=== PATIENT | male | born 1960 | race Caucasian/White ===

== ENCOUNTER 2019-01-09 11:34 | Outpatient (CLI) | payer OTHER, SELFPAY ==
--- NOTE | 2019-01-09 15:38 | DI.RAD_ITS ---
SYMPTOMS/DIAGNOSIS: RIGHT HIP PAIN RELATED TO LIFTING, INGUINAL PAIN, R10.30 RIGHT HIP AND PELVIS: Two views were obtained. There are degenerative changes of the lower lumbar spine and SI joints. There is moderate narrowing of the cartilaginous joint spaces of both hips superiorly. Mild acetabular and femoral head spurring noted. CONCLUSION: DJD, both hips. No evidence of acute process.
== END 2019-01-09 11:54 ==
PROVIDERS: Visit Provider Nurse Practitioner Family
DX: R10.31 Right lower quadrant pain (principal); M25.551 Pain in right hip; M16.11 Unilateral primary osteoarthritis, right hip
CPT/HCPCS: 73502

== ENCOUNTER 2019-03-10 01:04 | Outpatient (CLI) | payer OTHER, SELFPAY ==
--- NOTE | 2019-03-10 09:52 | DI.MRI_ITS ---
EXAM: MR LOWER JOINT BI WO CLINICAL HISTORY: b/l hip pain, M25.559. TECHNIQUE: Multiplanar multisequence MRI was performed. COMPARISON: XR hip RT complete AP pelvis from 01/09/2019 FINDINGS: There is no intrapelvic adenopathy or mass. There is a right hip joint effusion. No other significa nt soft tissue signal abnormality identified involving the hips. There is geographic mixed signal no oswaldo the superior aspect of both femoral heads with an appearance raising the possibility of avascular necrosis. Abnormal signal noted in the acetabular roofs bilaterally consistent with degenerative ch declan. Narrowing of the articular cartilage noted as seen on plain films. Mild hypertrophic spurring noted. Mild deformity of femoral heads noted superiorly consistent with slight collapse secondary t o presumed avascular necrosis. 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 Contour deformity of the femoral heads is noted as was seen plain films obtain ed recently.
== END 2019-03-10 01:24 ==
PROVIDERS: PCP Family Medicine; Visit Provider Physician Assistant
DX: M25.551 Pain in right hip (principal); M25.552 Pain in left hip; M25.451 Effusion, right hip; M16.11 Unilateral primary osteoarthritis, right hip; M87.851 Other osteonecrosis, right femur; M87.852 Other osteonecrosis, left femur
CPT/HCPCS: 73721

== ENCOUNTER 2019-04-25 10:03 | Outpatient (CLI) | payer OTHER, SELFPAY ==
--- NOTE | 2019-04-25 09:26 | DI.RAD_ITS ---
EXAM: XR PELVIS AP INDICATION: surgical planning. COMPARISON: XR hip RT complete and AP pelvis from 01/09/2019 TECHNIQUE: 2D digital imaging was performed. FINDINGS: Superior aspects of both femoral heads show sclerosis and cystic changes. There does appear to be mi ld loss of volume of the superior aspect of the left femoral head. The findings are most suggestive of avascular necrosis. There is also mild joint space narrowing early. The soft tissues are unremar kable. IMPRESSION: Findings most suggestive of avascular necrosis of the femoral heads bilaterally.
== END 2019-04-25 10:23 ==
PROVIDERS: PCP Family Medicine; Visit Provider Physician Assistant
DX: M87.051 Idiopathic aseptic necrosis of right femur (principal); M87.052 Idiopathic aseptic necrosis of left femur
CPT/HCPCS: 72170

== ENCOUNTER 2019-04-25 10:10 | Outpatient (CLI) | payer OTHER, SELFPAY ==
[2019-04-25 11:39] LABS: HCT 40.6 % (40.0-50.0); Mean Corp. HGB Concentration 34.5 g/dL (32.0-36.0); Mean Corpuscular Hemoglobin 31.3 pg (27.0-33.0); Mean Corpuscular Volume 90.6 fL (80-95); Mean Platelet Volume 8.3 fL (8.0-11.0); Platelet Count 351 x1000/uL (130-400); RBC 4.48 m/cumm (4.50-6.00); RBC Distribution Width 12.6 % (11.8-14.1); White Blood Cell Count 6.34 k/cumm (4.4-10.8)
[2019-04-25 12:49] LABS: Anion Gap 7.8 mmol/L (3-11); BUN 11 mg/dL (7-18); CO2 28.2 mmol/L (21.0-32.0); CREATININE 0.95 mg/dL (0.70-1.30); Calcium 9.1 mg/dL (8.5-10.1); Chloride 98 mmol/L (98-107); Glucose 120 mg/dL (74-106); Potassium 4.1 mmol/L (3.5-5.1); Sodium 134 mmol/L (136-145)
--- NOTE | 2019-04-27 20:20 | W.PREOPHP ---
Date of service: 04/25/19 Assessment and Plan Assessment and plan (1) Avascular necrosis of left femoral head: Status: Acute (2) Avascular necrosis of right femoral head: Status: Acute Assessment and plan: Bilateral total hip replacements. Details of surgery were discussed with patient as well as risks and pertinent anatomy. All questions were answered. History of Present Illness History of Present Illness Chief Complaint: Bilateral hip pain Narrative: Bruno is a 59-year-old male who comes in today complaining of bilateral hip pain, here for a history and physical for bilateral total hip replacements. While at work, he aggravated both hips on separate occasions, causing severe groin pain. Now his hips bother him anytime he is weightbearing, but especially if he is squatting or trying to lift anything of any weight. It also bothers him with walking upstairs, as well as doing simple tasks like putting on his shoes and socks. Imaging done in the office including x-rays and MRIs reveal avascular necrosis of both femoral heads that were exacerbated well doing rigorous activities at work. After discussing treatment options, Dr. Munguia does offer bilateral total hip replacements, and Bruno agrees with this plan and is anxious to proceed. Pertinent Surgical Information Patient denies history of CVA (has had TIA in 2016 with no residual effects or return of symptoms), SD, angina, COPD, renal or liver disorders, hepatitis, bleeding disorders, diabetes, immune or thyroid disorders. No complications from anesthesia. Has had recent rotator cuff repair done here at [facility] without complication. Review of Systems Constitutional Constitutional: Denies fever(s) ENT Ears, Nose, Mouth, and Throat: Denies dizziness and Denies sore throat Cardiovascular Cardiovascular: Denies chest pain, Denies palpitations and Denies dyspnea Respiratory Respiratory: Denies cough and Denies dyspnea Gastrointestinal Gastrointestinal: Denies abdominal pain, Denies melena, Denies hematochezia, Denies diarrhea, Denies nausea and Denies vomiting Genitourinary Genitourinary: Denies hematuria and Denies dysuria Neurologic Neurologic: Denies dizziness Endocrine Endocrine: Denies palpitations [facility] Medical History (Updated 04/27/19 @ 20:22 by MAU Garcia) Asthma (Chronic) Chronic GERD (Chronic) Gout (Chronic) Hypertension (Chronic) TIA (transient ischemic attack) (Acute ~07/2015) Surgical History (Updated 04/25/19 @ 10:31 by Shanna Ferguson RN) H/O melanoma excision (Acute) rt torso H/O spinal fusion (Resolved) L4-S1 [facility] 1990 History of arthroscopy of right shoulder (Resolved) with distal clavicle excision and biceps tenodesis, 2017 History of colonoscopy (Chronic) History of right inguinal hernia repair (Resolved) 1983 History of tonsillectomy (Chronic) S/P left rotator cuff repair (Resolved) 1991 Family History (Updated 04/25/19 @ 10:33 by Shanna Ferguson RN) Maternal Uncle Heart disease Social History Smoking/Tobacco Use Status: Never Alcohol Intake: current Alcohol Intake frequency: 0-2 drinks per day Drug use: Never Household members: spouse Housing: house Meds Home Medications and Allergies Home Medications Medication Instructions Recorded Confirmed Type folic acid 20 mg PO DAILY 10/13/15 04/25/19 History irbesartan [Avapro] 300 mg PO DAILY tab-cap 10/13/15 04/25/19 History omeprazole 20 mg PO DAILY tab-cap 10/13/15 04/25/19 History vitamin O15-vhlkh acid 1 ea SUBLINGUAL DAILY 10/13/15 04/25/19 History allopurinol 300 mg PO PRN PRN 03/14/16 04/25/19 History aspirin [Aspir-81] 81 mg PO DAILY 03/14/16 04/25/19 History Combivent 2 puff INHALATION PRN PRN 01/10/17 04/25/19 History Flovent HFA 1 - 2 puff INHALATION PRN PRN 01/10/17 04/25/19 History metoprolol tartrate 25 mg PO DAILY 01/16/17 04/25/19 History naproxen 500 mg PO BID PRN 04/25/19 04/25/19 History Allergies Allergy/AdvReac Type Severity Reaction Status Date / Time chlorhexidine gluconate Allergy Intermediate Rash & Unverified 04/25/19 10:26 [From Hibiclens] Burning oxycodone HCl [From Percocet] AdvReac Severe hallucinate Unverified 04/25/19 10:26 s Exam HENMT Head: normocephalic and atraumatic General nose exam: no nasal discharge Throat: uvula midline and no uvular edema Other: soft palate rises symmetrically, no erythema Eyes Conjunctivae: conjunctivae normal Sclera: sclerae normal Pupils: PERRL Resp Effort & Inspection: normal respiratory effort Auscultation: clear to auscultation bilaterally and no wheezes Cardio Rate: regular rate Rhythm: regular rhythm Heart Sounds: S1 normal, S2 normal and no murmurs GI Palpation: soft, no hepatosplenomegaly and nontender Auscultation: normal bowel sounds Results Labs Result diagrams: 04/25/19 11:15 04/25/19 11:15
== END 2019-04-25 10:30 ==
PROVIDERS: PCP Family Medicine; Visit Provider Student in an Organized Health Care Education/Training Program
DX: M87.052 Idiopathic aseptic necrosis of left femur (principal); M87.051 Idiopathic aseptic necrosis of right femur; Z01.818 Encounter for other preprocedural examination; Z01.812 Encounter for preprocedural laboratory examination
CPT/HCPCS: 36415; 80048; 85027; 86850; 86900; 86901; NC

== ENCOUNTER 2019-05-07 06:52 | Inpatient (IN) | payer OTHER, SELFPAY ==
--- NOTE | 2019-04-25 18:03 | PDOC.CMPRO ---
- If Service Date Differs Date of service: 04/25/19 Time of Service: 18:03 Care Management Progress Note CM met with Grayson during his pre op appointment. He is scheduled on 05/07/2019 for a bilateral hip replacement to be performed by Dr. Munguia. Grayson was injured at work while unloading a toilet, in order to replace an old toilet at [employer], where he is employed. He stated that [employer] has been cooperative and are covering the medical bills through workers comp. Grayson lives with his , Valorie, who works at [employer]. They live in a ranch style home in [place], with 4-5 steps to get in to the house. He is independent at baseline, and his has taken off work in order to help care for him at home post surgery. His will transport him via private vehicle to and from [facility]. He is interested in completing an advanced directive, and CM offered to give him a blank copy upon his admission. KAROL also advised that his primary care office (his PCP is Dr. Romero) will have blank copies if he would like one at a different date. He is already signed up for the portal.
[2019-05-07] VITALS (19 sets, daily range): BP systolic 91–154; BP diastolic 55–114; PULSE 38–85; RESP 15–58; TEMP 35.8–37.2; O2SAT 16–100
[2019-05-07] MEDS: Lactated Ringers 1,000 ML 80 ML IV ×3 (06:28→20:54)
[2019-05-07] MEDS: Celecoxib 200 MG CAP 400 MG PO (06:28)
[2019-05-07] MEDS: Acetaminophen 500 MG TAB 1000 MG PO ×3 (06:29→19:30)
[2019-05-07] MEDS: ceFAZolin 2 GM/50 ML BAG IVPB (07:31)
--- NOTE | 2019-05-07 08:46 | DI.RAD_ITS ---
EXAM: XR HIP LT IN OR CLINICAL HISTORY: AVASCULAR NECROSIS FEMORAL HEAD. TECHNIQUE: 2D and realtime digital imaging was performed. COMPARISON: No exams were available for comparison FINDINGS: Fluoroscopy was provided in the OR for Dr. Munguia. Hard copy images show placement of a left hip prosthesis. The components appear well aligned. FLUORO TIME: 42.1 seconds
[2019-05-07] MEDS: Bupivacaine 0.25% Pres-Free 30 ML VIAL (09:51)
[2019-05-07] MEDS: Ketorolac 30 MG/ML VIAL (09:53)
[2019-05-07] MEDS: Normal Saline 20 ML VIAL (09:54)
--- NOTE | 2019-05-07 11:12 | DI.RAD_ITS ---
EXAM: XR HIP RT IN OR CLINICAL HISTORY: AVASCULAR NECROSIS FEMORAL HEAD. TECHNIQUE: 2D and realtime digital imaging was performed. COMPARISON: No exams were available for comparison FINDINGS: Fluoroscopy was provided in the OR for Dr. Munguia. Hard copy images show placement of a right hip prosthesis. The components appear well aligned. FLUORO TIME: 28.4 seconds
--- NOTE | 2019-05-07 11:34 | DI.RAD_ITS ---
EXAM: XR PELVIS AP INDICATION: s/p bilateral ATIF. COMPARISON: XR PELVIS AP from 04/25/2019 TECHNIQUE: 2D digital imaging was performed. FINDINGS: A single portable AP view was performed. The patient is status post bilateral hip prostheses. The c omponents appear well aligned.
--- NOTE | 2019-05-07 12:43 | NUR.NOTE ---
Nursing Note: Patient admitted from PACU to Med/Surg room 226 via his bed at 1156
--- NOTE | 2019-05-07 15:26 | IN_ITS ---
Date of service: 05/07/19 Time of Service: 14:45 PT Notes Visit Reasons: B Anterior ATIF Physical Therapy Inpatient Initial Evaluation Date: 05/07/2019 Referring Doctor: Hood Munguia MD PT Orders: PT CONSULT: Status post Ortho surgery. Status post bilateral anterior ATIF. Precautions: Fall. Standard. WBAT on B LE. Patient Profile/Admitting Diagnosis: Patient is a 59-year-old male who is status post bilateral anterior total hip arthroplasties due to bilateral avascular necrosis of hips on POD 0. PMHX: Medical History (Updated 04/27/19 @ 20:22 by MAU Garcia) Asthma (Chronic) Chronic GERD (Chronic) Gout (Chronic) Hypertension (Chronic) TIA (transient ischemic attack) (Acute ~07/2015) Surgical History (Updated 04/25/19 @ 10:31 by Shanna Ferguson RN) H/O melanoma excision (Acute), right torso H/O spinal fusion (Resolved), L4-S1 [facility] [place], 1990 History of arthroscopy of right shoulder (Resolved) with distal clavicle excision and biceps tenodesis, 2016 History of colonoscopy (Chronic) History of right inguinal hernia repair (Resolved), 1983 History of tonsillectomy (Chronic) S/P left rotator cuff repair (Resolved), 1991 Social History/Home Situation: Patient lives with in a 1 floor house with 4 steps to enter and rails on both sides. 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 He is independent with all aspects of ADL performance prior to surgery. Equipment Owned/DME: None Subjective: Patient is agreeable to a PT consult. He reports significant return of sensation to bilateral lower extremities with bilateral soles and buttocks still numb. He complained about his upper extremities being weird while performing ambulation activity that prompted him to stop and sit down. He also reported pain on bilateral inguinal areas with the right more than the left. Denied headache, chest pain, and dizziness throughout PT consult. Objective: General Observation: Patient seen resting in bed. IV in the right UE. Bilateral TEDS on the legs. Mental Status: Alert and oriented x4 Pain: 4-5/10 on inguinal areas Vital Signs: 129/83 mmHg after taking 6 steps using a front wheeled walker ROM: Right Upper Extremity: Shoulder Flexion WFL. Shoulder abduction WFL. Elbow flexion WFL. Wrist flexion WFL. Opening and closing of hand WFL. Left Upper Extremity: Shoulder Flexion WFL. Shoulder abduction WFL. Elbow flexion WFL. Wrist flexion WFL. Opening and closing of hand WFL. Right Lower Extremity: Hip flexion WFL. Hip abduction WFL. Knee flexion WFL. Ankle dorsiflexion WFL. Ankle plantarflexion WFL. Left Lower Extremity: Hip flexion WFL. Hip abduction WFL. Knee flexion WFL. Ankle dorsiflexion WFL. Ankle plantarflexion WFL. Strength: Right Upper Extremity: Shoulder flexors 5/5. Shoulder abductors 5/5. Elbow flexors 5/5. Elbow extensors 5/5. Business Systems Administrator strong. Left Upper Extremity: Shoulder flexors 5/5. Shoulder abductors 5/5. Elbow flexors 5/5. Elbow extensors 5/5. Business Systems Administrator strong. Right Lower Extremity: Hip flexors 4-/5. Hip abductors 4-/5. Knee flexors 4/5. Knee extensors 4/5. Ankle dorsiflexors 5/5. Ankle plantarflexors 5/5. Left Lower Extremity:Hip flexors 4-/5. Hip abductors 4-/5. Knee flexors 4/5. Knee extensors 4/5. Ankle dorsiflexors 5/5. Ankle plantarflexors 5/5. Sensation: Diminished on posterior thigh and plantar areas. Bed Mobility/Transfers: Rolling minimal assist Supine to sit minimal assist Sit to supine minimal assist Sit to stand minimal assist Stand to sit minimal assist Bed to chair minimal assist Chair to bed minimal assist Gait: Patient was able to negotiate 6 feet using a front wheeled walker with step-to gait pattern requiring minimal assist of PT as well as IV pole management and wheelchair follow of an CHEMICAL WEIGHER. Remaining bilateral plantar numbness as well as having had double with spinal anesthesia caused patient to complain about numbness on bilateral upper extremities that made him sit back down on the chair. Patient was assisted from wheelchair onto a recliner using front wheeled walker with minimal assist. Decreased dhaval. Decreased step height and length. No LOB observed. Balance: Static Sitting: Normal Dynamic Sitting: Normal Static Standing: Fair Dynamic Standing: Fair Special Tests: Mobility Limitations Standardized Measure [employer] 6 clicks Basic Mobility Inpatient Short Form: Raw Score: 18 CMS Score: 47% deficit Informed Consent/Education: Patient instructed in purpose of PT consult and plan of care. Assessment: Patient is a 59-year-old male who is status post bilateral anterior total hip arthroplasties due to bilateral avascular necrosis of hips on POD 0. 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 Patient hopes to go back to work full-time as soon as he is medically cleared to do so. He is motivated to return to prior level of function. His prognosis for regaining independent level is good. Patient presents with clinical signs and symptoms consistent with current/admi tting diagnoses that have resulted to mobility limitations, gait instability, generalized weakness, and impairment of motor control as demonstrated by the following impairment level findings: 1. Decreased strength to B hip major muscle groups 2. Impaired standing balance 3. Impaired activity tolerance 4. Remaining numbness to B plantar areas and posterior thighs from spinal anesthesia Impairments are contributing to the following functional limitations: 1. Dependent bed mobility skills 2. Increased dependence with transfers 3. Inability to safely ambulate without assistive device and physical assistance 4. Increase completion time for mobility ADL performance 5. Increased fall risk 6. Inability to negotiate steps alone safely Patient is assessed as a 05651 high complexity based on the following: History: Patient with comorbidities as indicated above which increase complexity level Examination: Demonstrable impairment in strength, balance, and range of motion with underlying impairments and functional limitations as documented above Presentation:Evolving Decision Makin high complexity Goals: Goals X1 week 1. Supine-Sit independent 2. Sit-Supine independent 3. Sit-Stand independent 4. Stand-Sit independent 5. Bed-Chair independent 6. Chair-Bed independent 7. Independent gait on level surface with use of least restrictive device for at least 300 feet without report of pain nor dyspnea 8. Independent stair negotiation while holding onto bilateral rails for at least 10 steps without report of pain nor dyspnea 9. Independent with home exercise program 10. Good static and dynamic standing balance/tolerance Plan of Care/Treatment Plan: 1-2x/day, 7 days/week x 1 week. Plan of care has been reviewed with the [facility] [employer] [facility] providing the service under Physical Therapy direction. Initiate Physical Therapy intervention for strengthening, bed mobility, transfers, gait, stairs, balance training, use of assistive device. DISCHARGE RECOMMENDATIONS: May benefit from skilled physical therapy services according to orthopedic surgeon's timeline recommendations. Patient will be educated and trained on home exercise program per [facility] exercise protocol in preparation for outpatient physical therapy services. TREATMENT CODE/TIME: 87203 x 35 minutes beginning at 14:45 PM Thank you very much for this referral. Elvi Hernandez PT, DPT, CLT [facility]
[2019-05-07] MEDS: HYDROmorphone 2 MG TAB PO (15:32)
[2019-05-07] MEDS: ceFAZolin 1 GM/50 ML BAG IVPB ×2 (15:33→23:25)
[2019-05-07] MEDS: HYDROmorphone 2 MG/ML VIAL 0.5 MG IVP (17:09)
[2019-05-07] MEDS: Normal Saline Flush 10 ML SYR IV ×3 (17:10→23:26)
--- NOTE | 2019-05-07 18:29 | ROE_ITS ---
Date of service: 05/07/19 Time of Service: 11:13 Operative Note Operative Note DATE OF PROCEDURE: 05/07/19 PRE-OP DIAGNOSIS: Bilateral Hip Avascular Necrosis POST-OP DIAGNOSIS: same PROCEDURE: Bilateral Anterior Total Hip Arthroplasty SURGEON: Hood M[facility] DIRECTOR: Maxx Dowd ANESTHESIA: spinal ESTIMATED BLOOD LOSS: 500 PATHOLOGY: none sent COMPLICATIONS: None Patient was transported to: PACU Patient's condition: stable Implants: LEFT: 1. Depuy [place] Acetabular Component, 54mm 2. Depuy Acetabular Liner, [id number] 3. Depuy Corail Coxa Vara Femoral Stem, Size 12 4. Depuy Altrx Ceramic Femoral Head, Size 36+5mm RIGHT: 1. Depuy [place] Acetabular Component, 54mm 2. Depuy Acetabular Liner, [id number] 3. Depuy Corail Coxa Vara Femoral Stem, Size 12 4. Depuy Altrx Ceramic Femoral Head, Size 36+5mm Indications: I have seen Bruno in clinic for symptoms of hip pain, confirmed with radiographic findings to represent avascular necrosis wit collapse. Bruno has exhausted nonoperative methods and was having significant limitations in daily function and desired better function and less pain. I discussed the technical details of a hip replacement. I explained the risks of the procedure to include, but not limited to, bleeding, infection, pain, stiffness, fracture, damage to nerves and vessels, damage to muscles and tendons, loosening, instability, leg length inequality, need for repeat procedure, blood clot and cardiopulmonary demise. Despite these risks, Bruno elected to proceed. Findings: There were signs of superior femoral head collapse on both hips. There were also significant inflammatory changes of both with large effusions. Procedure Description: Bruno was greeted in the preoperative holding area where the correct side was identified and marked. The consent was reviewed with the patient and signed. The history and physical was updated. All questions were answered. He was taken back to the operating room. A spinal anesthestic was then administered. The patient was placed into the supine position on the operating room table. The patient was then positioned onto the ARCH table. Both feet were wrapped with [place]brill cotton wrap along with Coban. The feet were placed in specialized boots for the ARCH table, well seated within the boot and secured. SCDs were applied. The patient was then slid down onto a peroneal post and the nonoperative leg was secured in a leg corrales attached to the table. The operative side was placed into the ARCH table attachment and bed height and positioning was secured. A preoperative AP pelvis was obtained to serve as a reference for determining leg lengths. Prophylactic antibiotics in the form of Cefazolin were administered. 1g of Tranxemic Acid was given intravenously within 30 minutes of incision. A timeout to confirm correct identity, side and site, procedure, allergies, anesthesia, and medical concerns was performed. LEFT HIP: The left leg was then prepped with Chloraprep and draped in a standard fashion. A second prep was performed prior to placing the final shower-curtain type drape with Iodine impregnated skin protection. An obliquely oriented incision was made starting lateral to the ASIS and running distal over the Tensor Fascia Miracle (TFL) muscle belly toward the fibular head, approximately 10cm. The skin and soft tissue was dissected sharply, through Dick?s fascia, and to the fascia of the TFL. With the fascia and superior border of the IT band identified, the fascia was incised with a new knife just above any perforators from the IT band. The TFL muscle belly was bluntly dissected away from the fascia and moved laterally. The fat between TFL and rectus was identified to ensure the dissection was not within the TFL. Blunt dissection created space between abductors and the capsule and retractor was placed over the lateral femoral neck. The fibers of the rectus femoris tendon were identified and these were freed from the anterior capsule. A second cobra retractor was placed around the medial femoral neck. The TFL was further retracted laterally to show the deep fascia. Careful dissection through this layer identified three main crossing vessels of the lateral femoral circumflex. These were cauterized in multiple locations and then cut without any noticeable bleeding. The TFL was further released bluntly from the deep fascia to expose anterior hip capsule and fat The Grupo orthopaedic retractor was then placed beneath the TFL and against sartorius and medial soft tissues to protect and retract the soft tissues. A T-capsulotomy was then performed starting at the superior lateral acetabulum and moving distally to the intertrochanteric ridge. These capsular flaps were tagged with a No. 1 Ethibond and elevated from within. The capsular flaps were released to the shoulder of the lateral neck and to the lesser trochanter to give excellent visualization of the proximal femur. A neck osteotomy was performed using an oscillating saw based on preoperative templates. This cut started in the shoulder and of the lateral neck and exited medially. The saw was at all times directed medially to avoid injury to the greater trochanter. 6cm of traction was applied to the leg and the osteotomy opened. The femoral head was removed with a corkscrew, making sure to protect the TFL on its exit. This was measured on the back table to determing the starting reamer size. Portions of the rectus obscuring visualization were minimally elevated off the superior acetabulum. An anterior retractor was placed over the anterior wall between capsule and labrum and held with the Gripper retraction system. A posterior retractor was placed similarly. This provided excellent visualization. The contents of the cotyloid fossa were removed with electrocautery and the labrum was removed with a knife. There was collapse and softening of the superior femoral head with early osteophytes around the lateral neck and significant inflammatory change. Acetabular reaming began with a 50mm reamer. This first reaming was directed anterior to posterior and medial to get down to the true floor. This was inspected and reamed until the true floor was reached. I then reamed sequentially up to a 53mm reamer where good fit was obtained. The larger reamers were oriented based on anatomical reference of the anterior and lateral oconnor to ensure proper abduction and anteversion. Positioning and size was confirmed with the fluoroscopy. A 54mm Depuy [place] acetabular component was selected. The acetabulum was reamed around the periphery with the selected acetabular size to prevent a rim fit. The deep tissues were irrigated. The acetabular component was then impacted in a position of about 40-45 degrees of abduction and 15-20 degrees of anteversion. However, in this position I did not have great fixation and there was notable over hang of the anterior acetabulum. Therefore, using the patient?s anatomy as the ultimate landmark, I place the cup in a slight bit of more anteversion and abduction. Fluoroscopy was used to confirm this. There was excellent quality control scientist of the acetabular component and the inserting handle was removed. The acetabular liner, Depuy [id number] polyethylene liner, was inserted and lined up with the tines of the acetabular component. There was no soft tissue inte rposition. The liner was then impacted into position and confirmed to be well- seated. A portion of the kory-articular cocktail was then injected around the acetabulum into the capsule and periosteum. This cocktail consisted of 50cc of 0.25% Bupivicaine and 20cc of Exparel, expanded to a total of 120cc. Traction was released from the femur. The leg was rotated to 120 degrees. Any remaining medial capsule was released until the lesser trochanter was easily palpable. A Irizarry retractor was placed medially. The lateral capsule was further released into the shoulder to allow access to the greater trochanter. A Irizarry retractor was placed over the greater trochanter which allowed the trochanter to flip in front of the capsule for excellent exposure. The leg was brought down into maximal extension and 20 degrees of adduction while ensuring there was no impingement on the acetabulum. Any remnant capsule within the trochanter was released. Piriformis and obturator externis were identified and protected. There was excellent access to the proximal femur. The lateral neck remnant was removed with a rongeur. A blunt canal probe was used to identify the canal and trajectory for later broaching. A box osteotome initiated the broach course. A small curved rasp and a curved curette were used to work laterally. Broaching then began with a size 8 Corail broach. This was inserted manually around the trochanter and into the canal before mallet blows. The broach was seated to a few millimeters below the cut level based on the neck cut and the preoperative template. Sequential broaching was continued until a tight fit was obtained with good rotational control of the femur. A trial standard neck was inserted along with a +5 trial head. The leg was brought out of extension and adduction and then reduced with traction and internal rotation. The leg was stable anteriorly in a position of 30 degrees of extension and 90 degrees of external rotation. Fluoroscopy was used to ensure there was no fracture and the stem was seated well. Leg lengths were checked with an AP pelvis and pelvic reference points. Jointpoint was utilized to help assess leg lengths and offset. This demonstrated that the leg was a little long and under offset. THerefore, I dislocated the leg and placed a Coxa Vara neck with the +5 trial head. This was reduced and had good muscle tension. This did not change leg lengths but added a few mm of offset. Once content with the desired offset and leg lengths, the leg was brought back into extension, external rotation and adduction. The periosteum and surrounding tissue was injected with remaining portion of the kory-articular cocktail. The proximal femur was irrigated as well as the deep tissues. The Depuy Corail Coxa Vara stem, size 12, was then manually inserted into the proximal femur making sure to control rotation. It was then malleted into position with light blows, giving breaks to allow bone expansion and decrease risk of fracture. The selected Depuy Altrx Ceramic Head, size 36+5mm, was then placed onto the clean and dry trunnion and secured with impaction onto the tapered fit. The leg was brought back out of extension and adduction and reduced with traction and internal rotation. Stability was confirmed with no shuck at 90 degrees of external rotation and 30 degrees of extension. No impingement th rough range of motion arc. Throughout the case the wound was irrigated with Irrisept Chlorhexadine solution and this was once again irrigated in the wound and allowed to sit for 3 minutes. Final x-ray images were obtained with fluoroscopy to confirm adequate positioning and no intraoperative fracture. The capsule was then reapproximated with the previously placed Ethibond sutures. The TFL fascia was finally closed with a No. 2 Stratafix, barbed suture. Deep tissues were then reapproximated with 0 Vicryl and a running 2-0 Vicryl. The skin was closed with a running 4-0 Monocryl in a subcuticular fashion. This was reinforced with skin glue. A Mepilex silver dressing was applied. The instruments and back table were kept sterile while all of the drapes were removed. The boots were switched as was the table to prepare for the right side. RIGHT HIP: The right leg was then prepped with Chloraprep and draped in a standard fashion. A second prep was performed prior to placing the final shower-curtain type drape with Iodine impregnated skin protection. An obliquely oriented incision was made starting lateral to the ASIS and running distal over the Tensor Fascia Miracle (TFL) muscle belly toward the fibular head, approximately 10cm. The skin and soft tissue was dissected sharply, through Dick?s fascia, and to the fascia of the TFL. With the fascia and superior border of the IT band identified, the fascia was incised with a new knife just above any perforators from the IT band. The TFL muscle belly was bluntly dissected away from the fascia and moved laterally. The fat between TFL and rectus was identified to ensure the dissection was not within the TFL. Blunt dissection created space between abductors and the capsule and retractor was placed over the lateral femoral neck. The fibers of the rectus femoris tendon were identified and these were freed from the anterior capsule. A second cobra retractor was placed around the medial femoral neck. The TFL was further retracted laterally to show the deep fascia. Careful dissection through this layer identified three main crossing vessels of the lateral femoral circumflex. These were cauterized in multiple locations and then cut without any noticeable bleeding. The TFL was further released bluntly from the deep fascia to expose anterior hip capsule and fat The Grupo orthopaedic retractor was then placed beneath the TFL and against sartorius and medial soft tissues to protect and retract the soft tissues. A T-capsulotomy was then performed starting at the superior lateral acetabulum and moving distally to the intertrochanteric ridge. These capsular flaps were tagged with a No. 1 Ethibond and elevated from within. The capsular flaps were released to the shoulder of the lateral neck and to the lesser trochanter to give excellent visualization of the proximal femur. A neck osteotomy was performed using an oscillating saw based on preoperative templates. This cut started in the shoulder and of the lateral neck and exited medially. The saw was at all times directed medially to avoid injury to the greater trochanter. 6cm of traction was applied to the leg and the osteotomy opened. The femoral head was removed with a corkscrew, making sure to protect the TFL on its exit. This was measured on the back table to determing the starting reamer size. Portions of the rectus obscuring visualization were minimally elevated off the superior acetabulum. An anterior retractor was placed over the anterior wall between capsule and labrum and held with the Computer System Specialist per retraction system. A posterior retractor was placed similarly. This provided excellent visualization. The contents of the cotyloid fossa were removed with electrocautery and the labrum was removed with a knife. There was collapse and softening of the superior femoral head with early osteophytes around the lateral neck and significant inflammatory change. Acetabular reaming began with a 50mm reamer. This first reaming was directed anterior to posterior and medial to get down to the true floor. This was inspected and reamed until the true floor was reached. I then reamed sequentially up to a 53mm reamer where good fit was obtained. The larger reamers were oriented based on anatomical reference of the anterior and lateral oconnor to ensure proper abduction and anteversion. Positioning and size was confirmed with the fluoroscopy. A 54mm Depuy [place] acetabular component was selected. The acetabulum was reamed around the periphery with the selected acetabular size to prevent a rim fit. The deep tissues were irrigated. The acetabular component was then impacted in a position of about 40-45 degrees of abduction and 15-20 degrees of anteversion. There was excellent quality control scientist of the acetabular component and the inserting handle was removed. The acetabular liner, Depuy [id number] polyethylene liner, was inserted and lined up with the tines of the acetabular component. There was no soft tissue interposition. The liner was then impacted into position and confirmed to be well-seated. A portion of the kory-articular cocktail was then injected around the acetabulum into the capsule and periosteum. This cocktail consisted of 50cc of 0.25% Bupivicaine and 20cc of Exparel, expanded to a total of 120cc. Traction was released from the femur. The leg was rotated to 120 degrees. Any remaining medial capsule was released until the lesser trochanter was easily palpable. A Irizarry retractor was placed medially. The lateral capsule was further released into the shoulder to allow access to the greater trochanter. A Irizarry retractor was placed over the greater trochanter which allowed the trochanter to flip in front of the capsule for excellent exposure. The leg was brought down into maximal extension and 20 degrees of adduction while ensuring there was no impingement on the acetabulum. Any remnant capsule within the trochanter was released. Piriformis and obturator externis were identified and protected. There was excellent access to the proximal femur. The lateral neck remnant was removed with a rongeur. A blunt canal probe was used to identify the canal and trajectory for later broaching. A box osteotome initiated the broach course. A small curved rasp and a curved curette were used to work laterally. Broaching then began with a size 8 Corail broach. This was inserted manually around the trochanter and into the canal before mallet blows. The broach was seated to a few millimeters below the cut level based on the neck cut and the preoperative template. Sequential broaching was continued until a tight fit was obtained with good rotational control of the femur. A trial coxa vara neck was inserted along with a +5 trial head, as per the other side. The leg was brought out of extension and adduction and then reduced with traction and internal rotation. The leg was stable anteriorly in a position of 30 degrees of extension and 90 degrees of external rotation. Fluoroscopy was used to ensure there was no fracture and the stem was seated well. Leg lengths were checked with an AP pelvis and pelvic reference points. Jointpoint was utilized to help assess leg lengths and offset. Leg lengths and offset were confirmed to be the same. Once content with the desired offset and leg lengths, the leg was brought back into extension, external rotation and adduction. The periosteum and surrounding tissue was injected with remaining portion of the kory-articular cocktail. The proximal femur was irrigated as well as the deep tissues. The Depuy Cor[place] Coxa Vara stem, size 12, was then manually inserted into the proximal femur making sure to control rotation. It was then malleted into position with light blows, giving breaks to allow bone expansion and decrease risk of fracture. The selected Depuy Altrx Ceramic Head, size 36+5mm, was then placed onto the clean and dry trunnion and secured with impaction onto the tapered fit. The leg was brought back out of extension and adduction and reduced with traction and internal rotation. Stability was confirmed with no shuck at 90 degrees of external rotation and 30 degrees of extension. No impingement through range of motion arc. Throughout the case the wound was irrigated with Irrisept Chlorhexadine solution and this was once again irrigated in the wound and allowed to sit for 3 minutes. Final x-ray images were obtained with fluoroscopy to confirm adequate positioning and no intraoperative fracture. The capsule was then reapproximated with the previously placed Ethibond sutures. The TFL fascia was finally closed with a No. 2 Stratafix, barbed suture. Deep tissues were then reapproximated with 0 Vicryl and a running 2-0 Vicryl. The skin was closed with a running 4-0 Monocryl in a subcuticular fashion. This was reinforced with skin glue. A Mepilex silver dressing was applied. At the end of the case, all counts were correct. Bruno was transferred to the hospital bed without difficulty and suffering no apparent complication. Bruno has a good prognosis. Physical therapy will start today and without restrictions, weight-bearing as tolerated. Rivaroxaban 10mg daily will be used for DVT prophylaxis.
[2019-05-07] MEDS: Ketorolac 15 MG/ML VIAL IVP ×2 (18:56→23:25)
[2019-05-07] MEDS: Rivaroxaban 10 MG TABLET PO (21:36)
[2019-05-08] VITALS (9 sets, daily range): BP systolic 132–152; BP diastolic 68–89; PULSE 71–91; RESP 16–19; TEMP 36.7–37.4; O2SAT 96–97
[2019-05-08] MEDS: HYDROmorphone 2 MG TAB PO ×2 (01:21→04:35)
[2019-05-08] MEDS: Ketorolac 15 MG/ML VIAL IVP ×3 (06:38→17:03)
[2019-05-08] MEDS: Normal Saline Flush 10 ML SYR IV ×6 (06:39→21:12)
[2019-05-08 07:08] LABS: HCT 35.1 % (40.0-50.0); HGB 11.9 g/dL (13.5-17.5); Mean Corp. HGB Concentration 33.9 g/dL (32.0-36.0); Mean Corpuscular Hemoglobin 31.2 pg (27.0-33.0); Mean Corpuscular Volume 91.9 fL (80-95); Mean Platelet Volume 8.8 fL (8.0-11.0); Platelet Count 193 x1000/uL (130-400); RBC 3.82 m/cumm (4.50-6.00); RBC Distribution Width 13.2 % (11.8-14.1); White Blood Cell Count 6.74 k/cumm (4.4-10.8)
[2019-05-08] MEDS: Lactated Ringers 1,000 ML 1000 ML IV (07:11)
[2019-05-08 07:12] LABS: Anion Gap 4.6 mmol/L (3-11); BUN 12 mg/dL (7-18); CO2 29.4 mmol/L (21.0-32.0); CREATININE 0.85 mg/dL (0.70-1.30); Calcium 8.3 mg/dL (8.5-10.1); Chloride 99 mmol/L (98-107); Glucose 133 mg/dL (74-106); Potassium 4.2 mmol/L (3.5-5.1); Sodium 133 mmol/L (136-145)
[2019-05-08] MEDS: Acetaminophen 500 MG TAB 1000 MG PO ×3 (08:22→21:06)
[2019-05-08] MEDS: ceFAZolin 1 GM/50 ML BAG IVPB (08:22)
[2019-05-08] MEDS: Omeprazole 20 MG CAPCR PO (08:23)
[2019-05-08] MEDS: Cyanocobalamin 500 MCG TAB PO (08:23)
[2019-05-08] MEDS: Folic Acid 1 MG TAB PO (08:23)
--- NOTE | 2019-05-08 12:51 | PGE_ITS ---
Date of Service Date of service: 05/08/19 Time of Service: 12:51 Assessment and Plan Assessment and plan (1) Avascular necrosis of left femoral head: Status: Acute Assessment and plan: Burno is a 59-year-old status post bilateral hip replacement for bilateral avascular necrosis. He is doing well. His pain is within reason for a patient with avascular necrosis. Typically, these hurt more than hip replacement for arthritis. He did have some blood loss yesterday but his hemoglobin is stable at 11.9. His episode of bradycardia is unexplained but likely related to a vagal episode. It has not recurred. He has been able to ambulate. He still is working with pain and working on being more independent with transfers. He will benefit from physical therapy today and tomorrow. I would expect that he could discharge to home tomorrow depending how things go later today. (2) Avascular necrosis of right femoral head: Status: Acute Subjective Subjective Interval history since last seen: Bruno reports been doing well. He has had pain, in the left hip more than the right hip. He has been able to ambulate and this actually make things feel better. Sitting the bed for any prolonged period of time worsens the pain. The majority the pain is over the anterior and lateral aspects of the hips. However, the left side he does have some more groin pain. He denies any numbness or tingling. He did have an episode of bradycardia yesterday which improved without any notable intervention. He has had pain, but it is controlled with current medication regimen. Exam Narrative Exam Narrative: Evaluation of the right hip shows a clean dry and intact dressing. There is notable swelling lateral to the incision with some ecchymo sis, likely representing a hematoma. Some generalized tenderness to palpation about the right hip. No pain with internal and external rotation of the right hip. Sensation intact light touch over the femoral nerve and sciatic nerve distributions. The foot is warm well perfused. Evaluation the left hip shows a clean and dry and intact dressing. Minimal swelling. Generalized pain to palpation throughout the hip especially over the anterior aspect of the hip and along the rectus femoris. He is able to flex the left hip without notable limitation. He tolerates internal and external rotatio n without pain. Sensation intact light touch over the femoral and sciatic nerve distributions. Objective Objective Clinical Data: Abnormal lab results 05/08/19 05/08/19 Range/Units 06:35 06:35 RBC 3.82 L (4.50-6.00) m/cumm Hgb 11.9 L (13.5-17.5) g/dL Hct 35.1 L (40.0-50.0) % Sodium 133 L (136-145) mmol/L Glucose 133 H (74-106) mg/dL Calcium 8.3 L (8.5-10.1) mg/dL Vital Signs Temperature 37.1 C 05/08/19 11:25 Temperature Source Tympanic 05/08/19 11:25 Pulse 81 05/08/19 11:25 Pulse Rhythm Regular 05/08/19 08:00 Respiratory Rate 18 05/08/19 11:25 Respiratory Effort 05/08/19 08:00 Respiratory Depth Normal 05/08/19 08:00 Respiratory Pattern Normal 05/08/19 08:00 Blood Pressure 143/89 H 05/08/19 11:25 Pulse Oximetry 96 05/08/19 11:25 Respiratory End-tidal CO2 34 05/07/19 11:45 Oxygen Delivery Method Room Air 05/08/19 11:25 Oxygen Flow Rate 0 05/08/19 11:25 Pain Level 3 05/08/19 11:35 Intake & Output 05/07/19 05/08/19 05/08/19 23:59 11:59 23:59 Intake Total 1270 / 2398 3097.333 / 3097.333 Output Total 400 / 975 1350 / 1750 400 / 1750 Balance 870 / 1423 1747.333 / 1347.333 -400 / 1347.333 Intake: IV 790 / 1878 1937.333 / 1937.333 Oral 480 / 520 1160 / 1160 Output: Urine 400 / 475 1350 / 1750 400 / 1750 Other: Urine Color Yellow [place] Yellow Urine Appearance Clear Clear Clear Laboratory Results WBC 6.74 k/cumm (4.4-10.8) 05/08/19 06:35 RBC 3.82 m/cumm (4.50-6.00) L 05/08/19 06:35 Hgb 11.9 g/dL (13.5-17.5) L 05/08/19 06:35 Hct 35.1 % (40.0-50.0) L 05/08/19 06:35 MCV 91.9 fL (80-95) 05/08/19 06:35 MCH 31.2 pg (27.0-33.0) 05/08/19 06:35 MCHC 33.9 g/dL (32.0-36.0) 05/08/19 06:35 RDW 13.2 % (11.8-14.1) 05/08/19 06:35 Plt Count 193 x1000/uL (130-400) D 05/08/19 06:35 MPV 8.8 fL (8.0-11.0) 05/08/19 06:35 Sodium 133 mmol/L (136-145) L 05/08/19 06:35 Potassium 4.2 mmol/L (3.5-5.1) 05/08/19 06:35 Chloride 99 mmol/L (98-107) 05/08/19 06:35 Carbon Dioxide 29.4 mmol/L (21.0-32.0) 05/08/19 06:35 Anion Gap 4.6 mmol/L (3-11) 05/08/19 06:35 BUN 12 mg/dL (7-18) 05/08/19 06:35 Creatinine 0.85 mg/dL (0.70-1.30) 05/08/19 06:35 Estimated GFR/1.73 m2 >= 60.00 (mL/min/1.73m2) 05/08/19 06:35 Glucose 133 mg/dL (74-106) H 05/08/19 06:35 Calcium 8.3 mg/dL (8.5-10.1) L 05/08/19 06:35
--- NOTE | 2019-05-08 13:32 | PT.INTREAT ---
Date of service: 05/08/19 Time of Service: 13:32 PT Notes Inpatient Physical Therapy Treatment Note [facility] Date: 05/08/2019 PRECAUTIONS: Fall, WBAT B SUBJECTIVE: Grayson is agreeable to participating in PT. He reports that he did not sleep well last night due to increased pain in B hips. He does report that moving around seems to help with the stiffness and pain. OBJECTIVE: Patient is observed ambulating in halls with FWW and , multiple times throughout the day. PAIN: Patient c/o B hip pain with ther ex and gait training L>R BED MOBILITY/TRANSFERS Supine-sit: S Sit-stand: SBA in a.m.; I in p.m. Stand-sit: SBA in a.m.; I in p.m. GAIT Assistive Device: FWW Weight bearing: WBAT B Assist: SBA in a.m.; S in p.m. Distance: 100' in a.m.; 150' in p.m. Deviation: Brief standing pauses due to burning pain in lateral L thigh THEREX: Patient completed a LE strengthening and stabilization program, in a supine position in a.m. and a seated position in p.m., as per flow sheet. STAIRS: Up/down 6x4 and 4x6 using B rails and a step-to pattern with supervision ASSESSMENT: Patient tolerated session well with complaints of B hip pain, L>R, with gait training and ther ex. He was able to tolerate a progression in gait distance with FWW support and supervision. PLAN: Continue with PT's POC TREATMENT CODE/TIME: Session 1: 30 minutes; [id number], [id number] Session 2: 30 minutes; [id number], [id number]
--- NOTE | 2019-05-08 14:00 | PDOC.CMIN ---
- If Service Date Differs Date of service: 05/08/19 Time of Service: 14:00 Care Management Initial Assess REASON FOR HOSPITALIZATION:: Bilateral Hip Replacement PAST MEDICAL HISTORY/PAST SURGICAL HISTORY:: Medical History. Asthma (Chronic). Chronic GERD (Chronic). Gout (Chronic). Hypertension (Chronic). TIA (transient ischemic attack) (Acute ~07/2015). Surgical History. H/O melanoma excision (Acute), right torso. H/O spinal fusion (Resolved), [place]1 [facility] [place]. History of arthroscopy of right shoulder (Resolved). with distal clavicle excision and biceps tenodesis, 2016. History of colonoscopy (Chronic). History of right inguinal hernia repair (Resolved), 1983. History of tonsillectomy (Chronic). S/P left rotator cuff repair (Resolved), 1991 PREVIOUS FUNCTIONAL STATUS/SOCIAL/FAMILY SUPPORTS:: Grayson lives in [place] with his , Valorie. They live in a ranch style house with 4-6 stairs to get into the home. Grayson works at [employer] in [employer], and his Valorie works at [employer]. Their adult son lives in [place]. Grayson is independent at baseline. CURRENT FUNCTIONAL STATUS:: Grayson was sitting up in a chair in his room when CM met with him. His was by his side. He reported that he is doing better today than he was yesterday, right after surgery. He stated that he is working with PT, which is going well. He expressed concern about having a walker when he returns home. His surgery is being paid for by workers comp due to an accident at work, so CM has reached out to billing at [facility] to coordinate FWW. CM will continue to follow. ADVANCE DIRECTIVES:: None on file. CM will bring a blank copy of the [place] AD, at Grayson' request. Has patient been provided with information about the portal?: Yes Did the patient sign up for the portal?: Yes (already signed up) CODE STATUS:: Full Code INSURANCE COVERAGE / FINANCIAL ISSUES:: Worker's Comp CURRENT HOME/COMMUNITY SERVICES/EQUIPMENT:: No current services or equipment PRIMARY CARE PHYSICIAN:: Dr. Romero POTENTIAL DISCHARGE NEEDS:: Follow up appointment, evaluation for further needs, FWW PATIENT/FAMILY EDUCATION NEEDS:: Review discharge instructions regarding activity levels and medications, discussion of self care needs including Ask Me Three ANTICIPATED BARRIERS TO DISCHARGE:: None identified at this time TRANSPORTATION:: His , Valorie will drive him via private vehicle PLAN:: Anticipate Grayson will return home when medically cleared with no additional services. He will follow up with Ortho, as recommended. CM will coordinate a FWW through [facility]. His , Javy will drive him home via private vehicle when ready. CM will continue to follow.
[2019-05-08] MEDS: Rivaroxaban 10 MG TABLET PO (21:07)
[2019-05-09] MEDS: Normal Saline Flush 10 ML SYR IV ×4 (00:28→12:44)
[2019-05-09] MEDS: Ketorolac 15 MG/ML VIAL IVP ×3 (00:29→12:44)
[2019-05-09 00:30] VITALS: BP 142/89; PULSE 82; RESP 18; TEMP 36.8; O2SAT 95
[2019-05-09 04:05] VITALS: BP 149/92; PULSE 86; RESP 18; TEMP 37.1; O2SAT 95
--- NOTE | 2019-05-09 07:33 | DSE_ITS ---
Date of service: 05/09/19 Time of Service: 07:33 DS: Diagnosis Discharge Diagnosis (1) Avascular necrosis of left femoral head: Status: Acute (2) Avascular necrosis of right femoral head: Status: Acute Discharge Plan Disposition Patient Disposition: HOME W/HOME HEALTH SERVICE Condition: Good Discharge Details Reason For Visit: Bilateral Hip AVN Admit Date/Time: 05/07/19 06:52 Admit Provider: Hood Munguia Attending Provider: Hood Munguia Primary Care Provider: Didier Romero [facility] Course Hospital Course: Patient was admitted to the medical/surgical floor following the procedure. It was tolerated well without any notable medical, surgical, or anesthetic complica tions. Mobilization began postoperatively. The barrera catheter was removed and voiding spontaneously. Bruno had one episode of bradycardia which occurred after administration of IV Hydromorphone. This rebounded on its own and never recurred. On the day of discharge, vitals were stable. Physical therapy worked with the patient and was cleared for discharge home. No acute medical issues. Home Meds and New Rx's Prescriptions: New celecoxib 200 mg capsule 200 mg PO BID PRN (Reason: pain) Qty: 60 RF: 1 acetaminophen 500 mg tablet 1,000 mg PO Q8H PRN (Reason: pain) Qty: 90 RF: 3 rivaroxaban 10 mg tablet 10 mg PO DAILY Qty: 33 RF: 0 hydromorphone 4 mg tablet 4 mg PO Q6H PRN (Reason: pain) Qty: 16 RF: 0 Continued folic acid 20 MG capsule 20 mg PO DAILY RF: 0 omeprazole 20 MG capsule,delayed release(DR/EC) 20 mg PO DAILY RF: 0 irbesartan [Avapro] 300 MG tablet 300 mg PO DAILY RF: 0 vitamin [id number]-[id number] acid 1 EACH tablet, sublingual 1 ea Sublingual DAILY RF: 0 allopurinol 300 MG tablet 300 mg PO PRN PRNRF: 0 Combivent 200 PUFF aerosol 2 puff Inhalation PRN PRNRF: 0 Flovent HFA 120 PUFF HFA aerosol inhaler 1 - 2 puff Inhalation PRN PRNRF: 0 metoprolol tartrate 25 MG tablet 25 mg PO DAILY RF: 0 Discontinued aspirin [Aspir-81] 81 MG tablet,delayed release (DR/EC) 81 mg PO DAILY RF: 0 naproxen 500 mg tablet 500 mg PO BID PRNRF: 0 Discharge Instructions Additional Instructions: Total Hip Discharge Instructions Activity: The most important activity is to walk. You should try to take short walks a few times a day. You have no restrictions on movement or positioning, but do not try to force what you do. You will find some stiffness and weakness with hip flexion (lifting your knee). Do not try to strengthen this too early, continue to practice walking and stairs and this will come. - Home health physical therapy can be helpful to help return you to a normal gai t and improve your flexibility and strength. - You should wear the BEN hose on both legs for 2 weeks. Dressing: Keep the surgical dressing in place for at least one week. After the first week it may be removed and replace with light gauze and tape or nothing. It may get wet after 3 days but avoid soaking the dressing. If it gets wet, just lightly pat dry. It is important to always keep some gauze between skin folds, especially when you are sitting. Spend some time with the wound exposed when you are lying flat as the incision does wrinkle onto itself. Medications: - You should take Tylenol and an anti-inflammatory Celebrex as your primary pain control medications - You have been prescribed a stronger pain medication Hydromorphone for breakthrough pain, take as needed as prescribed. - You will continue your stomach acid reduction agent Omeprazole to help reduce stomach acid and reflux. - You will be taking Rivaroxaban (Xarelto) 10mg daily for DVT prevention unless instructed otherwise. - If you have constipation you should take Colace or Miralax (both [id number]). It takes most people 3-4 days to have a bowel movement. Follow-up: 2 weeks 1. Encounter Date and Reason I certify that CROW MARTINEZ was seen by Hood Munguia MD on 05/09/19 and that I had a [id number] encounter with this patient that meets the physician face to face encounter requirements. 2. Clinical Findings Supporting Skilled Need and Homebound Status I certify that home health services are medically necessary, include either intermittent mcfp and/or physical/speech therapy, and that this patient is homebound in that absences from the home require considerable and taxing effort and are infrequent or of short duration, or are attributable to the need to receive medical care. [X] (a) Attached documentation from encounter provides clinical findings supporting skilled need and homebound status (including what assistance patient requires to leave the home). The encounter with the patient was in whole, or in part, for the following medical condition, which is the primary reason for home health care: Bilateral Hip AVN Senior Care: Physical Therapy: Bruno would benefit from physical therapy to assist with recovery of strength and motion and ambulatory independence following bilateral hip replacements. He had bilateral anterior hip replacements and has no rest rictions. He has weakness and gait changes after the surgery. Speech Therapy: Homebound: Bruno is homebound due to his recent surgery and is unable to leave his home unassisted. 3. Certification and Authentication I certify that I composed the above information based on my clinical judgement relating to this patient's medical condition and, if applicable, clinical findings communicated to me by the NPP or inpatient physician who performed the Home Health Referral. All further orders will be obtained through Dr. Munguia Referrals: Hood Munguia MD [ [facility] STAFF PHYSICIAN] - Activity:: Activity as Tolerated Equipment/Supplies:: Walker Diet:: As Tolerated Discharge Orders Discharge Orders: Discharge Order (Routine); Ordered 05/09/19 Ordered By: Hood Munguia DS: Summary Status at Discharge Functional status at discharge: uses cane/walker Overall status at discharge: patient is progressing back to baseline Mental Status: mental status grossly normal Speech and Movement: speech and movement normal Mood: congruent mood Affect: normal affect Exam Psych Mental Status: mental status grossly normal Speech and Movement: speech and movement normal Mood: congruent mood Affect: normal affect DS: Data Vitals/I&O Vitals and I&O: Vital Signs Temperature 37.1 C 05/08/19 21:00 Temperature Source Tympanic 05/08/19 21:00 Pulse 87 05/08/19 23:00 Pulse Rhythm Regular 05/08/19 21:00 Respiratory Rate 19 05/08/19 21:00 Respiratory Effort 05/08/19 21:00 Respiratory Depth Normal 05/08/19 21:00 Respiratory Pattern Normal 05/08/19 21:00 Blood Pressure 132/68 05/08/19 21:00 Pulse Oximetry 97 05/08/19 21:00 Respiratory End-tidal CO2 34 05/07/19 11:45 Oxygen Delivery Method Room Air 05/08/19 21:00 Oxygen Flow Rate 0 05/08/19 21:00 Pain Level 3 05/09/19 06:53 Intake & Output 05/08/19 05/08/19 05/09/19 11:59 23:59 11:59 Intake Total 3097.333 / 3827.333 730 / 3827.333 Output Total 1350 / 1750 400 / 1750 Balance 1747.333 / 2077.333 330 / 2077.333 Intake: IV 1937.333 / 1937.333 Oral 1160 / 1890 730 / 1890 Output: Urine 1350 / 1750 400 / 1750 Other: Urine Color [place] Yellow Urine Appearance Clear Clear Urine Odor Normal Comment Patient voided in the bathroom. Unable to measure Voiding Methods Toilet [facility] Medical History Asthma (Chronic) Chronic GERD (Chronic) Gout (Chronic) Hypertension (Chronic) TIA (transient ischemic attack) (Acute ~07/2015) Surgical History H/O melanoma excision (Acute) rt torso H/O spinal fusion (Resolved) L4-S1 [facility] [place] History of arthroscopy of right shoulder (Resolved) with distal clavicle excision and biceps tenodesis, 2017 History of colonoscopy (Chronic) History of right inguinal hernia repair (Resolved) 1983 History of tonsillectomy (Chronic) S/P left rotator cuff repair (Resolved) 1991 Family History Maternal Uncle Heart disease Social History Smoking/Tobacco Use Status: Never Alcohol Intake: current Alcohol Intake frequency: 0-2 drinks per day Drug use: Never Household members: spouse Housing: house
[2019-05-09 07:35] VITALS: BP 145/90; PULSE 94; RESP 17; TEMP 36.8; O2SAT 95
[2019-05-09] MEDS: Cyanocobalamin 500 MCG TAB PO (07:38)
[2019-05-09] MEDS: Folic Acid 1 MG TAB PO (07:38)
[2019-05-09] MEDS: HYDROmorphone 2 MG TAB PO ×3 (07:38→13:29)
[2019-05-09] MEDS: Omeprazole 20 MG CAPCR PO (07:38)
[2019-05-09] MEDS: Metoprolol 25 MG TAB PO (07:39)
[2019-05-09] MEDS: Acetaminophen 500 MG TAB 1000 MG PO ×2 (07:39→13:29)
[2019-05-09 11:03] VITALS: PULSE 95
[2019-05-09 11:15] VITALS: BP 125/81; PULSE 80; RESP 16; TEMP 37.2; O2SAT 95
[2019-05-09 12:48] VITALS: PULSE 81
--- NOTE | 2019-05-09 12:57 | PT.INTREAT ---
Date of service: 05/09/19 Time of Service: 12:57 PT Notes Visit Reasons: Bilateral Hip AVN Inpatient Physical Therapy Treatment Note [facility] Date: 05/09/2019 PRECAUTIONS: Fall, WBAT B SUBJECTIVE: Grayson is agreeable to participating in PT. He reports that he didn't sleep well again last night. He is looking forward to going home today. OBJECTIVE: PAIN: Patient c/o B hip pain with ther ex and gait training L>R BED MOBILITY/TRANSFERS Supine-sit: I with HOB flat Sit-supine: I with HOB flat Sit-stand: I Stand-sit: I GAIT Assistive Device: FWW Weight bearing: WBAT B Assist: S Distance: 150' Deviation: Brief standing pauses due to burning nerve pain in lateral L thigh THEREX: Patient completed a LE strengthening program, in a seated position in p.m., as per flow sheet. STAIRS: Up/down 6x4 and 4x6 using B rails and a step-to pattern, independently ASSESSMENT: Patient tolerated session well with complaints of B hip pain, L>R, with gait training and ther ex. He was able to tolerate a progression in ther ex program, as noted on flow sheet. PLAN: As per primary PT TREATMENT CODE/TIME: 40 minutes; 88924 x2, 13185
--- NOTE | 2019-05-09 14:30 | DSE_ITS ---
DS: Diagnosis Discharge Diagnosis (1) Avascular necrosis of left femoral head: Status: Acute (2) Avascular necrosis of right femoral head: Status: Acute Discharge Plan Disposition Patient Disposition: HOME W/HOME HEALTH SERVICE Condition: Good Discharge Details Reason For Visit: Bilateral Hip AVN Admit Date/Time: 05/07/19 06:52 Admit Provider: Hood Munguia Attending Provider: Hood Munguia Primary Care Provider: Didier Romero [facility] Course Hospital Course: Patient was admitted to the medical/surgical floor following the procedure. It was tolerated well without any notable medical, surgical, or anesthetic complications. Mobilization began postoperatively. The barrera catheter was removed and voiding spontaneously. Bruno had one episode of bradycardia which occurred after administration of IV Hydromorphone. This rebounded on its own and never recurred. On the day of discharge, vitals were stable. Physical therapy worked with the patient and was cleared for discharge home. No acute medical issues. Home Meds and New Rx's Prescriptions: New celecoxib 200 mg capsule 200 mg PO BID PRN (Reason: pain) Qty: 60 RF: 1 acetaminophen 500 mg tablet 1,000 mg PO Q8H PRN (Reason: pain) Qty: 90 RF: 3 rivaroxaban 10 mg tablet 10 mg PO DAILY Qty: 33 RF: 0 hydromorphone 4 mg tablet 4 mg PO Q6H PRN (Reason: pain) Qty: 16 RF: 0 Continued folic acid 20 MG capsule 20 mg PO DAILY RF: 0 omeprazole 20 MG capsule,delayed release(DR/EC) 20 mg PO DAILY RF: 0 irbesartan [Avapro] 300 MG tablet 300 mg PO DAILY RF: 0 vitamin W87-[id number] acid 1 EACH tablet, sublingual 1 ea Sublingual DAILY RF: 0 allopurinol 300 MG tablet 300 mg PO PRN PRNRF: 0 Combivent 200 PUFF aerosol 2 puff Inhalation PRN PRNRF: 0 Flovent HFA 120 PUFF HFA aerosol inhaler 1 - 2 puff Inhalation PRN PRNRF: 0 metoprolol tartrate 25 MG tablet 25 mg PO DAILY RF: 0 Discontinued aspirin [Aspir-81] 81 MG tablet,delayed release (DR/EC) 81 mg PO DAILY RF: 0 naproxen 500 mg tablet 500 mg PO BID PRNRF: 0 Discharge Instructions Additional Instructions: Total Hip Discharge Instructions Activity: The most important activity is to walk. You should try to take short walks a few times a day. You have no restrictions on movement or positioning, b ut do not try to force what you do. You will find some stiffness and weakness with hip flexion (lifting your knee). Do not try to strengthen this too early, continue to practice walking and stairs and this will come. - Home health physical therapy can be helpful to help return you to a normal gait and improve your flexibility and strength. - You should wear the BEN hose on both legs for 2 weeks. Dressing: Keep the surgical dressing in place for at least one week. After the first week it may be removed and replace with light gauze and tape or nothing. It may get wet after 3 days but avoid soaking the dressing. If it gets wet, just lightly pat dry. It is important to always keep some gauze between skin folds, especially when you are sitting. Spend some time with the wound exposed when you are lying flat as the incision does wrinkle onto itself. Medications: - You should take Tylenol and an anti-inflammatory Celebrex as your primary pain control medications - You have been prescribed a stronger pain medication Hydromorphone for breakthrough pain, take as needed as prescribed. - You will continue your stomach acid reduction agent Omeprazole to help reduce stomach acid and reflux. - You will be taking Rivaroxaban (Xarelto) 10mg daily for DVT prevention unless instructed otherwise. - If you have constipation you should take Colace or Miralax (both [id number]). It takes most people 3-4 days to have a bowel movement. Follow-up: 2 weeks 1. Encounter Date and Reason I certify that CROW MARTINEZ was seen by Hood Munguia MD on 05/09/19 and that I had a [id number] encounter with this patient that meets the physician face to face encounter requirements. 2. Clinical Findings Supporting Skilled Need and Homebound Status I certify that home health services are medically necessary, include either intermittent custodial and/or physical/speech therapy, and that this patient is homebound in that absences from the home require considerable and taxing effort and are infrequent or of short duration, or are attributable to the need to receive medical care. [X] (a) Attached documentation from encounter provides clinical findings supporting skilled need and homebound status (including what assistance patient requires to leave the home). The encounter with the patient was in whole, or in part, for the following medical condition, which is the primary reason for home health care: Bilateral Hip AVN Care Home: Physical Therapy: Bruno would benefit from physical therapy to assist with recovery of strength and motion and ambulatory independence following bilateral hip replacements. He had bilateral anterior hip replacements and has no restrictions. He has weakness and gait changes after the surgery. Speech Therapy: Homebound: Bruno is homebound due to his recent surgery and is unable to leave his home unassisted. 3. Certification and Authentication I certify that I composed the above information based on my clinical judgement relating to this patient's medical condition and, if applicable, clinical findings communicated to me by the NPP or inpatient physician who performed the Home Health Referral. All further orders will be obtained through Dr. Munguia Stand Alone Forms: Nursing Discharge Form Referrals: Hood Munguia MD [ [facility] STAFF PHYSICIAN] - 05/22/19 9:15 am () Activity:: Activity as Tolerated Equipment/Supplies:: Walker and Raised Toilet Seat Diet:: As Tolerated Discharge Orders Discharge Orders: Discharge Order (Routine); Ordered 05/09/19 Ordered By: Hood Munguia DS: Summary Status at Discharge Functional status at discharge: uses cane/walker Overall status at discharge: patient is progressing back to baseline Mental Status: mental status grossly normal Speech and Movement: speech and movement normal Mood: congruent mood Affect: normal affect Exam Psych Mental Status: mental status grossly normal Speech and Movement: speech and movement normal Mood: congruent mood Affect: normal affect DS: Data Vitals/I&O Vitals and I&O: Vital Signs Temperature 37.2 C 05/09/19 11:15 Temperature Source Temporal Artery Scan 05/09/19 11:15 Pulse 81 05/09/19 12:48 Pulse Rhythm Regular 05/09/19 09:41 Respiratory Rate 16 05/09/19 11:15 Respiratory Effort Non-Labored 05/09/19 09:41 Respiratory Depth Normal 05/09/19 09:41 Respiratory Pattern Normal 05/09/19 09:41 Blood Pressure 125/81 05/09/19 11:15 Pulse Oximetry 95 05/09/19 11:15 Respiratory End-tidal CO2 34 05/07/19 11:45 Oxygen Delivery Method Room Air 05/09/19 11:15 Oxygen Flow Rate 0 05/09/19 11:15 Pain Level 3 05/09/19 13:29 Intake & Output 05/08/19 05/09/19 05/09/19 23:59 11:59 23:59 Intake Total 730 / 3827.333 200 / 200 Output Total 400 / 1750 Balance 330 / 2077.333 200 / 200 Intake: Oral 730 / 1890 200 / 200 Output: Urine 400 / 1750 Other: Urine Color Yellow Urine Appearance Clear Urine Odor Normal Comment Patient voided in the bathroom. Unable to measure VOID X 3 DURING NOC SHIFT Stool Size Moderate Stool Characteristics Soft Formed Voiding Methods Toilet Toilet [facility] Medical History Asthma (Chronic) Chronic GERD (Chronic) Gout (Chronic) Hypertension (Chronic) TIA (transient ischemic attack) (Acute ~07/2015) Surgical History H/O melanoma excision (Acute) rt torso H/O spinal fusion (Resolved) L4-S1 [facility] [place] History of arthroscopy of right shoulder (Resolved) with distal clavicle excision and biceps tenodesis, 2017 History of colonoscopy (Chronic) History of right inguinal hernia repair (Resolved) 1983 History of tonsillectomy (Chronic) S/P left rotator cuff repair (Resolved) 1991 Family History Maternal Uncle Heart disease Social History Smoking/Tobacco Use Status: Never Alcohol Intake: current Alcohol Intake frequency: 0-2 drinks per day Drug use: Never Household members: spouse Housing: house
--- NOTE | 2019-05-09 18:27 | CMDISCH_ITS ---
- If Service Date Differs Date of service: 05/09/19 Time of Service: 18:27 LACE Index Scoring Tool - Questions: Length of Stay (in days): 3 Acuity (Admit via E.D.?): No E.D. Visits: 0 - Answers: Total Score: 3 Risk of Readmission: Low Risk Care Management Discharge Reason for Hospitalization: Bilateral Hip Replacement Discharge Plan: Grayson will return home with new orders for HH PT. CM sent referral to for the new order. CM coordinated a FWW through [employer], which is being paid for by his WC claim. CM also coordinated a raised toilet seat, which the Pt will have to machine pecan picker at [facility] in [place], as we do not have this equipment in stock at [facility]. His , Valorie will drive him home via private vehicle. He will follow up with Ortho, as recommended. Patient/Family Education Needs: Review discharge instructions regarding activity levels and medications, discussion of self care needs including Ask Me Three Services Needed at Discharge: DME Agency ([employer]), Home Health Care Services (HH PT)
--- NOTE | 2019-05-12 08:50 | INDS_ITS ---
Date of service: 05/12/19 Time of Service: 08:50 PT Notes Visit Reasons: Bilateral Hip AVN Inpatient Physical Therapy Discharge Summary Dates: 05/12/2019 Dates of Service: 05/07/2019 through 05/09/2019 This is a clinical summary of care provided on the duration of dates listed above. No charge was made in the completion of this documentation. Referring Doctor: Hood Munguia MD PT Orders: PT CONSULT: Status post Ortho surgery. Status post bilateral anterior ATIF. Precautions: Fall. Standard. WBAT on B LE. Patient Profile/Admitting Diagnosis: Patient is a 59-year-old male who is status post bilateral anterior total hip arthroplasties due to bilateral avascular necrosis of hips on POD 2 she. PMHX: Medical History (Updated 04/27/19 @ 20:22 by MAU Garcia) Asthma (Chronic) Chronic GERD (Chronic) Gout (Chronic) Hypertension (Chronic) TIA (transient ischemic attack) (Acute ~07/2015) Surgical History (Updated 04/25/19 @ 10:31 by Shanna Ferguson RN) H/O melanoma excision (Acute), right torso H/O spinal fusion (Resolved[place] [facility] [place] History of arthroscopy of right shoulder (Resolved) with distal clavicle excision and biceps tenodesis, 2016 History of colonoscopy (Chronic) History of right inguinal hernia repair (Resolved), 1983 History of tonsillectomy (Chronic) S/P left rotator cuff repair (Resolved), 1991 Social History/Home Situation: Patient lives with in a 1 floor house with 4 steps to enter and rails on both sides. 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 He is independent with all aspects of ADL performance prior to surgery. Equipment Owned/DME: None Subjective:NT Objective: General Observation: NT Mental Status: NT Pain: NT ROM: Right Upper Extremity: Shoulder Flexion WFL. Shoulder abduction WFL. Elbow flexion WFL. Wrist flexion WFL. Opening and closing of hand WFL. Left Upper Extremity: Shoulder Flexion WFL. Shoulder abduction WFL. Elbow flexion WFL. Wrist flexion WFL. Opening and closing of hand WFL. Right Lower Extremity: Hip flexion WFL. Hip abduction WFL. Knee flexion WFL. Ankle dorsiflexion WFL. Ankle plantarflexion WFL. Left Lower Extremity: Hip flexion WFL. Hip abduction WFL. Knee flexion WFL. Ankle dorsiflexion WFL. Ankle plantarflexion WFL. Strength: Right Upper Extremity: Shoulder flexors 5/5. Shoulder abductors 5/5. Elbow flexors 5/5. Elbow extensors 5/5. It Program Engagement Director strong. Left Upper Extremity: Shoulder flexors 5/5. Shoulder abductors 5/5. Elbow flexors 5/5. Elbow extensors 5/5. It Program Engagement Director strong. Right Lower Extremity: Hip flexors 4-/5. Hip abductors 4-/5. Knee flexors 4/5. Knee extensors 4/5. Ankle dorsiflexors 5/5. Ankle plantarflexors 5/5. Left Lower Extremity:Hip flexors 4-/5. Hip abductors 4-/5. Knee flexors 4/5. Knee extensors 4/5. Ankle dorsiflexors 5/5. Ankle plantarflexors 5/5. Sensation: Diminished on posterior thigh and plantar areas. Bed Mobility/Transfers: Rolling independent Supine to sit independent Sit to supine independent Sit to stand independent Stand to sit independent Bed to chair independent Chair to bed independent Gait: Patient was able to negotiate 150 feet using a front wheeled walker with step-to gait pattern requiring supervision of MILK AND CREAM GRADER. Patient also tolerated up-and-down six 4 inch steps and four 6 inch steps while holding onto bilateral rails using step to gait pattern requiring supervision Balance: Static Sitting: Normal Dynamic Sitting: Normal Static Standing: Fair Dynamic Standing: Fair POD Assessment: Patient is a 59-year-old male who is status post bilateral anterior total hip arthroplasties due to bilateral avascular necrosis of hips on POD 2. 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 Patient hopes to go back to work full-time as soon as he is medically cleared to do so. He is motivated to return to prior level of function. His prognosis for regaining independent level is good. Patient continues to present with clinical signs and symptoms consistent with current/admitting diagnoses that have resulted to mobility limitations, gait instability, generalized weakness, and impairment of motor control as demonstrated by the following impairment level findings: 1. Decreased strength to B hip major muscle groups 2. Impaired standing balance 3. Impaired activity tolerance Impairments are contributing to the following functional limitations: 1. Inability to safely ambulate without assistive device and physical assistance 2. Increase completion time for mobility ADL performance 3. Increased fall risk 4. Inability to negotiate steps alone safely Goals: Goals X1 week 1. Supine-Sit independent MET 2. Sit-Supine independent MET 3. Sit-Stand independent MET 4. Stand-Sit independent MET 5. Bed-Chair independent MET 6. Chair-Bed independent MET 7. Independent gait on level surface with use of least restrictive device for at least 300 feet without report of pain nor dyspnea NOT MET 8. Independent stair negotiation while holding onto bilateral rails for at least 10 steps without report of pain nor dyspnea NOT MET 9. Independent with home exercise program NOT MET 10. Good static and dynamic standing balance/tolerance NOT MET DISCHARGE RECOMMENDATIONS: May benefit from skilled physical therapy services according to orthopedic surgeon's timeline recommendations. Patient will be educated and trained on home exercise program per TKA exercise protocol in preparation for outpatient physical therapy services. TREATMENT CODE/TIME: WA. Thank you very much for this referral. Elvi Hernandez PT, DPT, CLT [facility]
== END 2019-05-09 13:36 | disposition home health service (06) | DRG 462 ==
LOC: PDS 06:53 → MS 11:41
PROVIDERS: Admitting Provider Student in an Organized Health Care Education/Training Program; PCP Family Medicine; Visit Provider Student in an Organized Health Care Education/Training Program
PROC: 0SR90JZ Replacement of Right Hip Joint with Synthetic Substitute, Open Approach (ICD-10-PCS; CPT 27130; principal; 2019-05-07 07:30)
DX: M87.052 Idiopathic aseptic necrosis of left femur (principal); M87.051 Idiopathic aseptic necrosis of right femur; Z96.643 Presence of artificial hip joint, bilateral; M25.551 Pain in right hip; Y99.0 Civilian activity done for income or pay; X58.XXXA Exposure to other specified factors, initial encounter; R55 Syncope and collapse; J45.909 Unspecified asthma, uncomplicated; K21.9 Gastro-esophageal reflux disease without esophagitis; I10 Essential (primary) hypertension; Z86.73 Personal history of transient ischemic attack (TIA), and cerebral infarction without residual deficits
CPT/HCPCS: 27130; 36415; 80048; 85027; 97110; 97163; 97530; NC; 72170; 73501; J0690; J1885; J2250; J2405; J3010

== ENCOUNTER 2019-05-22 10:08 | Outpatient (CLI) | payer OTHER, SELFPAY ==
--- NOTE | 2019-05-22 09:50 | DI.RAD_ITS ---
EXAM: XR HIP PELVIS ADULT BL CLINICAL HISTORY: f/u bilateral ATIF TECHNIQUE: COMPARISON: XR PELVIS AP from 05/07/2019 FINDINGS: Four views were obtained. There are total hip joint replacements in position bilaterally. Component s appear well seated. No other significant bony abnormality seen. IMPRESSION:
== END 2019-05-22 10:28 ==
PROVIDERS: PCP Family Medicine; Visit Provider Student in an Organized Health Care Education/Training Program
DX: Z96.643 Presence of artificial hip joint, bilateral (principal); Z47.1 Aftercare following joint replacement surgery
CPT/HCPCS: 73521

== ENCOUNTER 2019-07-31 09:37 | Outpatient (CLI) | payer OTHER, SELFPAY ==
--- NOTE | 2019-07-31 09:00 | DI.RAD_ITS ---
EXAM: XR HIP RT AP LAT ONLY INDICATION: R hip pain. COMPARISON: XR HIP PELVIS ADULT BL from 05/22/2019 TECHNIQUE: 2D digital imaging was performed. FINDINGS: Has been no change in the right hip prosthesis. No abnormal bony lucencies are seen. DATA REPOSITORY: RADIATION DOSE DELIVERED:
== END 2019-07-31 09:57 ==
PROVIDERS: PCP Family Medicine; Visit Provider Physician Assistant
DX: M25.551 Pain in right hip (principal); Z96.641 Presence of right artificial hip joint
CPT/HCPCS: 73502

== ENCOUNTER 2019-12-15 11:37 | Outpatient (CLI) | payer OTHER, SELFPAY ==
--- NOTE | 2019-12-15 10:00 | DI.RAD_ITS ---
EXAM: XR HIP RT AP LAT ONLY CLINICAL HISTORY: RIGHT HIP PAIN. TECHNIQUE: 2D digital imaging was performed. COMPARISON: CR XR HIP RT AP LAT ONLY from 07/31/2019 FINDINGS: There are stable findings of a right total hip arthroplasty. The bones are intact and normally muck miner alized. The soft tissues are unremarkable. IMPRESSION: Stable right THR. DATA REPOSITORY: RADIATION DOSE DELIVERED:
== END 2019-12-15 11:57 ==
PROVIDERS: PCP Family Medicine; Referring Provider Family Medicine; Visit Provider Student in an Organized Health Care Education/Training Program
DX: M25.551 Pain in right hip (principal); Z96.641 Presence of right artificial hip joint
CPT/HCPCS: 73502

== ENCOUNTER 2020-01-08 10:41 | Outpatient (CLI) | payer OTHER, SELFPAY ==
--- NOTE | 2020-01-08 10:45 | DI.RAD_ITS ---
EXAM: XR CERVICAL SPINE COMP 4-5V CLINICAL HISTORY: Acute neck pain, M54.2, intermittent numbness/tingling, right face TECHNIQUE: COMPARISON: No exams were available for comparison FINDINGS: Five views were obtained. There is disc space narrowing at the C6-7 level with prominent anterior en dplate osteophytes also this level. Otherwise intervertebral disc spaces appear fairly well maintain ed. Minimal hypertrophic spurring of the endplates and facet joints noted. Neural foramina appear f airly well maintained oblique views. No other significant bony abnormality seen at C6-7 level. 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
== END 2020-01-08 11:01 ==
PROVIDERS: PCP Family Medicine; Visit Provider Nurse Practitioner Family
DX: M47.812 Spondylosis without myelopathy or radiculopathy, cervical region (principal); M54.2 Cervicalgia; R20.0 Anesthesia of skin; M25.78 Osteophyte, vertebrae
CPT/HCPCS: 72050

== ENCOUNTER 2020-03-01 01:54 | Outpatient (CLI) | payer OTHER, SELFPAY ==
--- NOTE | 2020-03-01 08:30 | DI.MRI_ITS ---
EXAM: MR CERVICAL SPINE WO CLINICAL HISTORY: cervical strain with numbness 4th and 5th left digit,acute neck pain,m54.2, TECHNIQUE: Multiplanar multisequence MRI of the cervical spine was performed without intravenous con trast. COMPARISON: CR XR CERVICAL SPINE COMP 4-5V from 01/08/2020 FINDINGS: BONES: Vertebral body heights are maintained. Intervertebral disc spaces are normal. Straightening of the normal cervical lordosis secondary to degenerative changes. Bone marrow signal intensity is wit hin normal limits. Hemangioma in the C 5 vertebral body. CERVICAL CORD: Craniovertebral junction is unremarkable. The cervical cord is normal size and signal intensity. SOFT TISSUES: Unremarkable. C2-3: Mild disc osteophytes, eccentric toward the left causing mild left neural foraminal narrowing. Facet degenerative changes C3-4: Ckmv-wh-zcubnjob disc osteophytes eccentric toward the right. C4-5: Intact C5-6: Mild loss of disc height and mild broad-based disc osteophytes C6-7: Prominent disc osteophytes projecting mainly anteriorly. There is loss of disc height and dege nerative signal changes in the endplates. There is bilateral neural foraminal narrowing. There is n o significant central canal stenosis. C7-T1: Mild disc bulging. Facet joint degenerative changes IMPRESSION: Degenerative disc changes and facet degenerative changes, greatest at C6-7. DATA REPOSITORY:
== END 2020-03-01 02:14 ==
PROVIDERS: PCP Family Medicine; Visit Provider Nurse Practitioner Family
DX: M47.812 Spondylosis without myelopathy or radiculopathy, cervical region (principal); M25.78 Osteophyte, vertebrae; M48.02 Spinal stenosis, cervical region; M50.23 Other cervical disc displacement, cervicothoracic region; R20.0 Anesthesia of skin
CPT/HCPCS: 72141

== ENCOUNTER 2020-05-07 08:55 | Outpatient (CLI) | payer OTHER, SELFPAY ==
--- NOTE | 2020-05-07 08:15 | DI.RAD_ITS ---
EXAM: XR HIP PELVIS ADULT BL INDICATION: 1 year follow-up. COMPARISON: CR XR HIP PELVIS ADULT BL from 05/22/2019 CR XR HIP RT AP LAT ONLY from 07/31/2019 CR XR HIP RT AP LAT ONLY from 12/15/2019 TECHNIQUE: 2D digital imaging was performed. FINDINGS: There has been no change in the appearance of the bilateral hip prostheses. There are no surrounding abnormal bony lucencies. DATA REPOSITORY: RADIATION DOSE DELIVERED:
== END 2020-05-07 09:15 ==
PROVIDERS: PCP Family Medicine; Referring Provider Family Medicine; Visit Provider Physician Assistant Surgical
DX: Z96.643 Presence of artificial hip joint, bilateral (principal)
CPT/HCPCS: 73521

== ENCOUNTER 2020-10-08 04:17 | Outpatient (CLI) | payer OTHER, SELFPAY ==
--- NOTE | 2020-10-08 08:15 | DI.MRI_ITS ---
Exam(s) MR LUMBAR SPINE WO EXAM: MR LUMBAR SPINE WO CLINICAL HISTORY: persistent lumbar pain and left leg weakness, numbNESS,M54.5. TECHNIQUE: Multiplanar multisequence MRI of the Lumbar spine was performed. COMPARISON: No priors for comparison. FINDINGS: Bones: The last intervertebral disc space is designated the L5/S1 level for the numbering purpose of this examination. The vertebral body heights are well maintained. There is a hemangioma or fatty r est in the L1 vertebral body. There is grade 3 anterolisthesis of L5 on S1. Degenerative endplate si gnal changes are present at multiple levels of the lumbar spine. Cord: The conus tip ends at the T12 level. It is of normal size and signal intensity. T12-L1: No disc herniations or bulges are present. No central spinal canal or neural foraminal stenos is. L1-2: No disc herniations or bulges are present. No central spinal canal or neural foraminal stenosis . L2-3: There is a mild diffuse disc bulge. There are hypertrophic changes of the facets. These all c ontribute to cause mild to moderate central spinal canal stenosis. There is moderate right and mild left neural foraminal stenosis. L3-4: There is a mild diffuse disc bulge. There are hypertrophic changes of the facets and ligamentu m flavum. These all contribute to cause mild to moderate central spinal canal stenosis. There is mi ld bilateral neural foraminal stenosis. L4-5: There is a mild diffuse disc bulge. No significant central spinal canal stenosis. There is mi ld bilateral neural foraminal stenosis. L5-S1: Grade 3 anterolisthesis of L5 on S1. No significant central spinal canal stenosis. Moderatel y severe bilateral neural foraminal stenosis is present. Soft tissues: The visualized SI joints and sacrum are well maintained. The paraspinal soft tissues ar e unremarkable. IMPRESSION: Multilevel degenerative changes in the lumbar spine as described above. Multilevel central spinal ca nal and neural foraminal stenosis is seen. DATA REPOSITORY:
== END 2020-10-08 04:37 ==
PROVIDERS: PCP Family Medicine; Visit Provider Nurse Practitioner Family
DX: M54.5 Low back pain (principal); R20.0 Anesthesia of skin; M51.37 Other intervertebral disc degeneration, lumbosacral region; M48.061 Spinal stenosis, lumbar region without neurogenic claudication
CPT/HCPCS: 72148

== ENCOUNTER 2021-10-21 03:42 | Observation (INO) | payer OTHER, SELFPAY ==
[2021-10-21] VITALS (34 sets, daily range): BP systolic 135–179; BP diastolic 86–111; PULSE 69–107; RESP 13–22; TEMP 36.2–36.8; O2SAT 94–98
--- NOTE | 2021-10-21 03:45 | DI.RAD_ITS ---
Exam(s) XR PORTABLE CHEST AP EXAM: XR PORTABLE CHEST AP CLINICAL HISTORY: central chest heaviness TECHNIQUE: 2D digital imaging was performed of the chest. One image was obtained. An AP view was ob tained. COMPARISON: No exams were available for comparison FINDINGS: MEDIASTINUM: Normal. HEART: Normal. PULMONARY VASCULATURE: Normal. LUNGS: Clear. PLEURAL SPACE: No pleural effusion or pneumothorax. BONE:Within normal limits for the patient's age. OTHER FINDINGS:Normal. IMPRESSION: No acute pulmonary findings. DATA REPOSITORY: RADIATION DOSE DELIVERED:
--- NOTE | 2021-10-21 03:45 | RT.EKG_ITS ---
APPROVED REPORT Exam: Resting ECG Reason for Exam: dizzy Patient Location: E HR:84 bpm ECG Measurements Heart Rate 84 AXIS [place] 194 P 63 QRSd 103 QRS 5 QT 355 T 51 QTc 421 Conclusion Sinus rhythm...normal P axis, V-rate 60- 99 Physician: Rate 84, sinus rhythm, intervals normal, no significant ST elevations or depressions. No STEMI. No prior EKG for comparison.
--- NOTE | 2021-10-21 03:58 | ED.GENADUL_ITS ---
Discharge Plan Disposition Patient Disposition: [facility] INPATIENT Condition: Improving Discharge Details Chief Complaint: Chest Pain Clinical Impression: Chest pain Primary Care Provider: Didier Romero ED Provider: Anthony Thompson Home Meds and New Rx's Prescriptions: No Action folic acid 20 MG capsule 20 mg PO DAILY omeprazole 20 MG capsule,delayed release(DR/EC) 20 mg PO DAILY irbesartan [Avapro] 300 MG tablet 300 mg PO DAILY vitamin C89-[id number] acid 1 EACH tablet, sublingual 1 ea Sublingual DAILY (DME) Massage Therapy Qty: 1 0RF Rx Instructions: Recommend massage therapy to bilateral hips for scar tissue manipulation and tissue plane management s/p bilateral hip replacements. allopurinol 300 MG tablet 300 mg PO PRN PRN Combivent 200 PUFF aerosol 2 puff Inhalation PRN PRN Flovent HFA 120 PUFF HFA aerosol inhaler 1 - 2 puff Inhalation PRN PRN Label Comments: 01/10/17 pt not sure of dose. metoprolol tartrate 25 MG tablet 25 mg PO DAILY acetaminophen 500 mg tablet 1,000 mg PO Q8H PRN (Reason: pain) Qty: 90 3RF aspirin [Aspir-81] 81 mg Tablet,Delayed Release (Dr/Ec) 81 mg PO DAILY Medical Decision Making This is a pleasant 61-year-old male with a past medical history of PTSD, asthma, GERD, gout, hypertension, previous TIA, and a family history positive for stroke and heart attacks, presents today for evaluation of chest heaviness. Patient states that at 1:30 AM which was 2 and half hours ago he developed a sudden onset chest heaviness while sleeping. It woke him up from sleep. He states it felt like someone was standing on his chest. He went to watch TV for small amount of time, and slightly improved, then as he tried to go back to bed again the pain returned. He denies any tearing or ripping sensation. He does admit to feeling slightly short of breath, but denies any pain with breathing. He denies any arm neck or shoulder pain. He denies any stabbing sensation. Denies PE risk factors such as recent long car rides, immobilization, recent surgery, prior history of DVT or PE, family history of PE or DVT, morbid obesity, exogenous estrogen and smoking, hemoptysis, history of cancer. Patient denies any recent exertional symptoms of lightheadedness, shortness of breath or chest pain over the last few days with activity. No othe r complaints at this time. No other modifying factors. The patient's physical exam is relatively unremarkable. No pulse asymmetry or deficits. No reproducible chest wall pain. Lungs are clear. Differential includes cardiac etiology, unstable angina. However GERD and reflux is certainly also on the differential but less likely and diagnoses of exclusion. We will give nitroglycerin, full dose aspirin, evaluate for concerning etiologies, monitor closely and reassess. PE seems unlikely, we will get a D- dimer for further rule out. 5:09 AM Laboratory work-up demonstrates normal troponin, normal lipase, and normal D- dimer. Initial nitroglycerin took the patient's pain away from a 170 pound man standing on his chest down to a 50 pound man standing on his chest. Repeat nitroglycerin removed the heaviness completely, as well as the shortness of breath. Patient feels well now, symptoms have completely abated. EKG is stable with no evidence of STEMI. The patient does admit to a significant increase in stress at work as of late, but again denies ever having had tightness or heaviness like this before. Bedside limited echo shows a trace pericardial effusion, but good cardiac mobility otherwise. No significant wall motion abnormality that I can visualize. With the patient age, cardiac risk factors, family history, and personal and family history of TIA/suspected vascular di sease, I do feel that the patient is higher risk and would benefit from observation with serial troponins and stress testing. Especially in conjunction with the patient's pain being relieved with the nitroglycerin. I discussed the case with the hospitalist Dr. Vzaquez, he agrees with the assessment and plan. I will place bridging orders his behalf I have extensively reviewed the treatment plan with the patient. I have addressed all patient concerns at this time. I have also discussed the plan with the admitting physician and they agree with the current assessment and plan and have agreed to assume responsibility for the patient. All parties demonstrate verbal understanding and agreement with our assessment and plan at this time. The documentation in this chart was dictated using Keep[employer] dictation software. Please excuse any dictation errors. EKG 3: 55 Rate 84, sinus rhythm, intervals normal, no significant ST elevations or depressions. No STEMI. No prior EKG for comparison. HPI General Date/Time Provider Initiated Documentation: 10/21/21 03:47 . HPI Narrative: This is a pleasant 61-year-old male with a past medical history of PTSD, asthma, GERD, gout, hypertension, previous TIA, and a family history positive for stroke and heart attacks, presents today for evaluation of chest heaviness. Patient states that at 1:30 AM which was 2 and half hours ago he developed a sudden onset chest heaviness while sleeping. It woke him up from sleep. He states it felt like someone was standing on his chest. He went to watch TV for small amount of time, and slightly improved, then as he tried to go back to bed again the pain returned. He denies any tearing or ripping sensation. He does admit to feeling slightly short of breath, but denies any pain with breathing. He denies any arm neck or shoulder pain. He denies any stabbing sensation. Denies PE risk factors such as recent long car rides, immobilization, recent surgery, prior history of DVT or PE, family history of PE or DVT, morbid obesity, exogenous estrogen and smoking, hemoptysis, history of cancer. Patient denies any recent exertional symptoms of lightheadedness, shortness of breath or chest pain over the last few days with activity. No other complaints at this time. No other modifying factors. Related Data Home Medications Medication Instructions Recorded Confirmed folic acid 20 mg capsule 20 mg PO DAILY 10/13/15 10/21/21 irbesartan 300 mg tablet (Avapro) 300 mg PO DAILY 10/13/15 10/21/21 omeprazole 20 mg capsule,delayed 20 mg PO DAILY 10/13/15 10/21/21 release vitamin B12 1,000 mcg-folic acid 1 ea sublingual DAILY 10/13/15 10/21/21 400 mcg sublingual tablet allopurinol 300 mg tablet 300 mg PO PRN PRN 03/14/16 10/21/21 fluticasone propionate 110 1 - 2 puff inhalation PRN PRN 01/10/17 10/21/21 mcg/actuation HFA aerosol inhaler (Flovent HFA) ipratropium 18 mcg-albuterol 103 2 puff inhalation PRN PRN 01/10/17 10/21/21 mcg/actuation aerosol inhaler (Combivent) metoprolol tartrate 25 mg tablet 25 mg PO DAILY 01/16/17 10/21/21 acetaminophen 500 mg tablet 1,000 mg PO Q8H PRN pain #90 tabs 05/09/19 10/21/21 Massage Therapy #1 ea 06/16/19 10/21/21 aspirin 81 mg tablet,delayed 81 mg PO DAILY 10/21/21 10/21/21 release Previous Rx's Medication Instructions Recorded acetaminophen 500 mg tablet 1,000 mg PO Q8H PRN pain #90 tabs 05/09/19 Massage Therapy #1 ea 06/16/19 Allergies Allergy/AdvReac Type Severity Reaction Status Date / Time hydromorphone [From Dilaudid] Allergy Severe Verified 10/21/21 04:18 chlorhexidine gluconate Allergy Intermediate Rash & Unverified 10/21/21 04:18 [From Hibiclens] Burning oxycodone HCl [From Percocet] AdvReac Severe hallucinate Unverified 10/21/21 04:18 s Review of Systems All systems reviewed & are unremarkable except as noted in HPI and below PFSH All Active Problems (Updated 10/21/21 @ 05:11 by Anthony Thompson DO) Chest pain (Acute) PTSD (post-traumatic stress disorder) (Acute) Lumbar pain with radiation down both legs (Acute) Tremor (Acute) Ulnar neuropathy at elbow of right upper extremity (Acute) Ulnar neuropathy at elbow of left upper extremity (Acute) Carpal tunnel syndrome on both sides (Acute) Cervical strain (Acute) Tremor observed on examination (Acute) Numbness and tingling in left hand (Acute) Cervical spondylosis (Acute) Lumbar strain (Acute) Neck pain, acute (Acute) Trochanteric bursitis, right hip (Acute) Trochanteric bursitis, left hip (Acute) Weakness of both hips (Acute) History of bilateral total hip arthroplasty (Acute 05/07/19) Dr. Munguia Acromioclavicular arthrosis, bilateral (Acute 12/27/15) Biceps tendinitis of right shoulder (Acute 06/27/17) Right rotator cuff tendinitis (Acute 12/27/15) Tear of left rotator cuff (Acute 10/13/15) Medical History (Updated 10/21/21 @ 05:11 by Anthony hTompson DO) Asthma Chronic GERD Gout Hypertension TIA (transient ischemic attack) (~07/2015) Surgical History H/O melanoma excision rt torso H/O spinal fusion L4-S1 [facility] [place] 1990 History of arthroscopy of right shoulder with distal clavicle excision and biceps tenodesis, 2017 History of colonoscopy History of right inguinal hernia repair 1984 History of tonsillectomy S/P left rotator cuff repair 1991 Family History Maternal Uncle Heart disease Father Hypertension Hyperlipidemia Brother Hyperlipidemia Mother Seizure Headache Social History Smoking/Tobacco Use Status: Never Smoking risk assessment performed?: Yes Alcohol Intake: current Alcohol Intake frequency: 3 or more drinks per day Alcohol type: beer Drug use: Never Household members: spouse Housing: house Number of Children: 1 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 3.ENT: Atraumatic external nose and ears. Moist MM. Neck: Symmetric, trachea midline, No thyromegaly. 4.CVS: +S1/S2, No murmurs or gallops. Peripheral pulses 2+ and equal in all extremities. Brisk capillary refill in all extremities. 5.RESP: Unlabored respiratory effort. Clear to auscultation bilaterally. No wheezes rales or rhonchi 6.GI: Soft, Nontender/Nondistended, No hepatosplenomegaly. No guarding or rebound. 7.MSK: Normocephalic/Atraumatic, Extremities w/o deformity or ttp No cyanosis or clubbing, Normal movement of all extremities no pulse deficits. 8.Skin: Warm, Dry. No rashes or lesions. 9.Neuro: front end driver II-XII grossly intact. Sensation grossly intact, no focal neurologic deficits. 10.Psych: (AAO) x3. Appropriate mood and affect No calf tenderness.
[2021-10-21] MEDS: Aspirin 81 MG CHEW 324 MG CH (04:04)
[2021-10-21] MEDS: nitroGLYcerin 0.4 MG TAB SL ×2 (04:04→04:37)
[2021-10-21] MEDS: Normal Saline 500 ML IV (04:21)
[2021-10-21 04:31] LABS: ALT 33 U/L (16-63); AST 23 U/L (15-37); Albumin 4.2 g/dL (3.4-5.0); Alkaline Phosphatase 53 U/L (46-116); BUN 12 mg/dL (7-18); Bilirubin, Total 0.7 mg/dL (0.2-1.0); Calcium 9.1 mg/dL (8.5-10.1); Chloride 97 mmol/L (98-107); Glucose 125 mg/dL (74-106); INR 0.9 (0.9-1.1); Lipase 239 U/L (73-393); PTT Activated 23.4 sec (21.0-27.5); Potassium 4.1 mmol/L (3.5-5.1); Prothrombin Time 9.4 sec (9.3-11.0); Sodium 136 mmol/L (136-145); Total Protein 7.3 g/dL (6.4-8.2); Troponin I < 50 ng/L (<or=60)
[2021-10-21 04:43] LABS: D-Dimer 281 ng/mlFEU (<500)
[2021-10-21 05:50] LABS: Abs Immature Grans 0.02 10^3/uL (0.0-0.06); Absolute Basophil Count 0.09 10^3/uL (0.0-0.2); Absolute Eosinophil Count 0.22 10^3/uL (0.0-0.7); Absolute Lymphocyte Count 2.43 10^3/uL (1.2-3.4); Absolute Monocyte Count 0.98 10^3/uL (0.1-0.8); Basophils % 1.1; Eosinophils % 2.6; HCT 44.3 % (40.0-50.0); HGB 15.4 g/dL (13.5-17.5); Immature Grans % 0.2; Lymphocytes % 28.8; MCH 31.9 pg (27.0-33.0); MCHC 34.8 % (32.0-36.0); MCV 92 fL (80-95); MPV 9.3 fL (8.0-11.0); Monocytes % 11.6; Neutrophils % 55.7; Platelet Count 217 10^3/uL (130-400); RBC 4.83 10^6/uL (4.36-5.78); RDW 12.1 % (11.8-14.1); RDW-SD 40.9 fL; WBC 8.44 10^3/uL (4.4-10.8)
--- NOTE | 2021-10-21 06:45 | DI.VRAD_ITS ---
PROCEDURE INFORMATION: Exam: XR Chest Exam date and time: 10/21/2021 4:16 AM Age: 61 years old Clinical indication: Other: Central chest heaviness TECHNIQUE: Imaging protocol: XR of the chest. Views: 1 view. COMPARISON: MR CERVICAL SPINE WO 03/01/2020 2:08 PM FINDINGS: Lungs: Unremarkable. No consolidation. Pleural spaces: Unremarkable. No pleural effusion. No pneumothorax. Heart/Mediastinum: Unremarkable. No cardiomegaly. Bones/joints: Unremarkable. IMPRESSION: No acute findings. Dictated and Authenticated by: Kevin Murillo MD. Ordering:OLLIE Cruz MD
[2021-10-21 06:54] LABS: COVID-19 PCR Negative (Negative); Source Nasal/Nares
[2021-10-21 07:23] LABS: Troponin I < 50 ng/L (<or=60)
--- NOTE | 2021-10-21 08:48 | W.PM.HP.N ---
Assessment and Plan Assessment and plan (1) Chest pain: Status: Acute Assessment and plan: His chest pain is suggestive of coronary artery disease although occurred at rest. He had symptoms of diaphoresis chest pain and shortness of breath. His electrocardiogram did not show any acute changes. His troponins been negative x2. He does have a body habitus that makes coronary artery disease likely. There is some family history of sudden that may have been due to cardiac problems. Stress testing is not available today or for the next 2 days because today is Sunday next 2 days or weekend. We will ambulate him and increase his metoprolol to 50 mg daily. He is on daily aspirin. If he ambulates without chest pain may consider discharge and setting up outpatient stress testing. We will be further cared for by the day hospitalist. History of Present Illness History of Present Illness Chief Complaint: chest pain Narrative: This 61-year-old male is here because of chest pain. It started about 1 or 1:30 AM today. He noticed chest discomfort which felt like a weight on his chest without radiation. He was diaphoretic. The pain lasted for about 30 minutes and went away after he went to the living room and watched television. His checked his blood pressure and noted that it was elevated. About an hour and a half later when he tried to go back to bed he had a recurrence of the chest pressure. He said it felt like 170 pound man on his chest. Because of that he was brought to the emergency department. He felt somewhat dyspneic and used an inhaler which did help some however he still had the chest pressure and diaphoresis. In the emergency department he was given a nitroglycerin tablet which he said because the pressure in his chest to go down to about a 60 pound estimated weight on his chest after second nitroglycerin the pain disappeared. He feels fine at this time. He does not have a history of tobacco use, hyperlipidemia or diabetes. He does have hypertension. He says a maternal uncle and maternal grandfather both of sudden presumably due to heart disease. He has 2 brothers who are following but 1 younger brother has a history of atrial fibrillation. Recently has had some stress in his life because he has been out of work and is on Workmen's Compensation because of an neck and back injury. He was released to do light duty work but apparently the [employer] where he works does not want to provide light duty work so he is not working currently. He has had radiofrequency ablations to his neck recently. He has a history of a TIA in 2016 but no history of coronary artery disease. Review of Systems Constitutional Constitutional: Denies chills, Denies fever(s), Denies frequent falls and Denies headache(s) ENT Ears, Nose, Mouth, and Throat: Denies headache(s) and Reports neck pain Cardiovascular Cardiovascular: Reports chest pain at rest, Denies chest pain with activity, Reports diaphoresis, Denies syncope, Denies rapid heart rate, Denies lightheadedness, Denies radiating jaw, neck or arm pain, Denies palpitations, Reports dyspnea, Reports dyspnea on exertion and Denies slow heart rate Respiratory Respiratory: Denies cough, Reports dyspnea and Reports dyspnea on exertion Gastrointestinal Gastrointestinal: Denies abdominal pain, Denies belching, Denies diarrhea, Denies loose stools, Reports nausea and Denies vomiting Musculoskeletal Musculoskeletal: Denies abnormal gait, Reports back pain, Reports neck pain and Denies tingling Neurologic Neurologic: Denies abnormal speech, Denies abnormal gait, Denies syncope, Denies frequent falls, Denies headache(s) and Denies tingling Endocrine Endocrine: Denies palpitations PFSH All Active Problems (Updated 10/21/21 @ 05:11 by Anthony Thompson DO) Chest pain (Acute) PTSD (post-traumatic stress disorder) (Acute) Lumbar pain with radiation down both legs (Acute) Tremor (Acute) Ulnar neuropathy at elbow of right upper extremity (Acute) Ulnar neuropathy at elbow of left upper extremity (Acute) Carpal tunnel syndrome on both sides (Acute) Cervical strain (Acute) Tremor observed on examination (Acute) Numbness and tingling in left hand (Acute) Cervical spondylosis (Acute) Lumbar strain (Acute) Neck pain, acute (Acute) Trochanteric bursitis, right hip (Acute) Trochanteric bursitis, left hip (Acute) Weakness of both hips (Acute) History of bilateral total hip arthroplasty (Acute 05/07/19) Dr. Munguia Acromioclavicular arthrosis, bilateral (Acute 12/27/15) Biceps tendinitis of right shoulder (Acute 06/27/17) Right rotator cuff tendinitis (Acute 12/27/15) Tear of left rotator cuff (Acute 10/13/15) Medical History (Updated 10/21/21 @ 05:11 by Anthony Thompson DO) Asthma Chronic GERD Gout Hypertension TIA (transient ischemic attack) (~07/2015) Surgical History H/O melanoma excision rt torso H/[place] [facility] [place] History of arthroscopy of right shoulder with distal clavicle excision and biceps tenodesis, 2017 History of colonoscopy History of right inguinal hernia repair 1983 History of tonsillectomy S/P left rotator cuff repair 1991 Family History Maternal Uncle Heart disease Father Hypertension Hyperlipidemia Brother Hyperlipidemia Mother Seizure Headache Social History Smoking/Tobacco Use Status: Never Smoking risk assessment performed?: Yes Alcohol Intake: current Alcohol Intake frequency: 3 or more drinks per day Alcohol type: beer Drug use: Never Household members: spouse Housing: house Number of Children: 1 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 Do you feel safe at home: Yes Do you feel safe in your relationship?: Yes Meds Allergies and Home Medications Allergies Allergy/AdvReac Type Severity Reaction Status Date / Time hydromorphone [From Dilaudid] Allergy Severe Verified 10/21/21 04:18 chlorhexidine gluconate Allergy Intermediate Rash & Unverified 10/21/21 04:18 [From Hibiclens] Burning oxycodone HCl [From Percocet] AdvReac Severe hallucinate Unverified 10/21/21 04:18 s Home Medications Medication Instructions Recorded Confirmed Type irbesartan 300 mg tablet (Avapro) 300 mg PO DAILY 10/13/15 10/21/21 History omeprazole 20 mg capsule,delayed 20 mg PO DAILY 10/13/15 10/21/21 History release vitamin B12 1,000 mcg-folic acid 1 ea sublingual DAILY 10/13/15 10/21/21 History 400 mcg sublingual tablet allopurinol 300 mg tablet 300 mg PO PRN PRN 03/14/16 10/21/21 History fluticasone propionate 110 1 - 2 puff inhalation PRN PRN 01/10/17 10/21/21 History mcg/actuation HFA aerosol inhaler (Flovent HFA) ipratropium 18 mcg-albuterol 103 2 puff inhalation PRN PRN 01/10/17 10/21/21 History mcg/actuation aerosol inhaler (Combivent) acetaminophen 500 mg tablet 1,000 mg PO Q8H PRN pain #90 tabs 05/09/19 10/21/21 Rx Massage Therapy #1 ea 06/16/19 10/21/21 Rx aspirin 81 mg tablet,delayed 81 mg PO DAILY 10/21/21 10/21/21 History release cyanocobalamin (vitamin B-12) 1,000 mcg .MONTHLY 10/21/21 10/21/21 History 1,000 mcg/mL injection syringe fluticasone propionate 220 0 puff inhalation DAILY 10/21/21 10/21/21 History mcg/actuation HFA aerosol inhaler folic acid 1 mg tablet 1 mg PO DAILY 10/21/21 10/21/21 History hydrochlorothiazide 25 mg tablet 25 mg PO DAILY 10/21/21 10/21/21 History metoprolol succinate 25 mg 25 mg PO DAILY 10/21/21 10/21/21 History tablet,extended release 24 hr testosterone cypionate 200 mg/mL 200 mg IM DIRECTED 10/21/21 10/21/21 History intramuscular oil Exam Const General: cooperative, comfortable, no acute distress, not disheveled and not ill appearing Nutritional Appearance: obese Orientation: alert, awake and oriented x3 Neck Neck: normal visual inspection, no lymphadenopathy and no JVD Chest Chest: normal palpation of entire chest wall and no tenderness Resp Effort & Inspection: normal respiratory effort and able to speak in complete sentences Auscultation: clear to auscultation bilaterally Cardio Rate: regular rate Rhythm: regular rhythm Heart Sounds: S1 normal, S2 normal, no gallops, no murmurs and no rubs GI Palpation: soft, no hepatosplenomegaly, not firm, no masses, not rigid and nontender Extrem General: normal to inspection, capillary refill normal and no edema Results Labs Result diagrams: 10/21/21 04:05 10/21/21 04:05 Labs: Laboratory Results - last 24 hr 10/21/21 10/21/21 10/21/21 04:05 04:05 04:05 WBC 8.44 RBC 4.83 Hgb 15.4 Hct 44.3 MCV 92 MCH 31.9 MCHC 34.8 RDW 12.1 Plt Count 217 MPV 9.3 Immature Gran % 0.2 Neutrophils % 55.7 Lymphocytes % 28.8 Monocytes % 11.6 Eosinophils % 2.6 Basophils % 1.1 Nucleated RBC % 0.0 Absolute Neutrophils 4.70 Absolute Lymphocytes 2.43 Absolute Monocytes 0.98 H Absolute Eosinophils 0.22 Absolute Basophils 0.09 PT 9.4 INR 0.9 APTT 23.4 D-Dimer 281 Sodium 136 Potassium 4.1 Chloride 97 L Carbon Dioxide 27.0 Anion Gap 12.0 H BUN 12 Creatinine 1.0 Estimated GFR/1.73 m2 >= 60.00 Glucose 125 H Calcium 9.1 Total Bilirubin 0.7 AST 23 ALT 33 Alkaline Phosphatase 53 Troponin I < 50 Total Protein 7.3 Albumin 4.2 Lipase 239 COVID-19 Source SARS-CoV-2 (PCR) 10/21/21 10/21/21 05:08 06:45 WBC RBC Hgb Hct MCV MCH MCHC RDW Plt Count MPV Immature Gran % Neutrophils % Lymphocytes % Monocytes % Eosinophils % Basophils % Nucleated RBC % Absolute Neutrophils Absolute Lymphocytes Absolute Monocytes Absolute Eosinophils Absolute Basophils PT INR APTT D-Dimer Sodium Potassium Chloride Carbon Dioxide Anion Gap BUN Creatinine Estimated GFR/1.73 m2 Glucose Calcium Total Bilirubin AST ALT Alkaline Phosphatase Troponin I < 50 Total Protein Albumin Lipase COVID-19 Source Nasal/Nares SARS-CoV-2 (PCR) Negative Last Vital Signs Temp 36.4 C L 10/21/21 07:17 Pulse 72 10/21/21 07:17 Resp 18 10/21/21 07:17 BP 154/96 H 10/21/21 07:17 Pulse Ox 97 10/21/21 07:17
[2021-10-21] MEDS: Omeprazole 20 MG CAPCR PO (09:03)
[2021-10-21] MEDS: Irbesartan 75 MG TAB 300 MG PO (09:04)
[2021-10-21] MEDS: Aspirin E.C. 81 MG TABEC PO (09:04)
[2021-10-21] MEDS: Metoprolol 50 MG TAB PO (10:04)
[2021-10-21] MEDS: Folic Acid 1 MG TAB PO (10:04)
[2021-10-21] MEDS: hydroCHLOROthiazide 25 MG TAB PO (10:04)
--- NOTE | 2021-10-21 13:15 | DSE_ITS ---
Date of service: 10/21/21 Time of Service: 12:15 DS: Diagnosis Discharge Diagnosis (1) Chest pain: Status: Acute Discharge Plan Disposition Patient Disposition: HOME Condition: Improving Discharge Details Reason For Visit: Chest Pain Admit Date/Time: 10/21/21 05:07 Admit Provider: Mart Duron Attending Provider: Mart Duron Primary Care Provider: Didier Romero [facility] Course Hospital Course: This 61-year-old male came to the ED for chest pain.? It started about 1 or 1:30 AM toFR.? He went to the ED and was given nitroglycerin that he reported helped his pain. He has a history of a TIA in 2016 but no history of coronary artery disease. 3 negatvie troponins, no chest pain, no SOB. Will go home with BRODIE everett PCP Reviewed with Dr Reyes Home Meds and New Rx's Prescriptions: New isosorbide mononitrate 30 mg tablet extended release 24 hr 30 mg PO DAILY Qty: 30 0RF atorvastatin 20 mg tablet 20 mg PO QHS Qty: 30 0RF Continued omeprazole 20 MG capsule,delayed release(DR/EC) 20 mg PO DAILY irbesartan [Avapro] 300 MG tablet 300 mg PO DAILY vitamin [id number] acid 1 EACH tablet, sublingual 1 ea Sublingual DAILY (DME) Massage Therapy Qty: 1 0RF Rx Instructions: Recommend massage therapy to bilateral hips for scar tissue manipulation and tissue plane management s/p bilateral hip replacements. allopurinol 300 MG tablet 300 mg PO PRN PRN Combivent 200 PUFF aerosol 2 puff Inhalation PRN PRN acetaminophen 500 mg tablet 1,000 mg PO Q8H PRN (Reason: pain) Qty: 90 3RF aspirin 81 mg Tablet,Delayed Release (Dr/Ec) 81 mg PO DAILY metoprolol succinate 25 mg Tablet Extended Release 24 Hr 25 mg PO DAILY testosterone cypionate 200 mg/mL Oil 200 mg IM DIRECTED Rx Instructions: 1ML IM EVERY 2 WEEKS folic acid 1 mg Tablet 1 mg PO DAILY hydrochlorothiazide 25 mg Tablet 25 mg PO DAILY cyanocobalamin (vitamin B-12) 1,000 mcg/mL Syringe 1,000 mcg .MONTHLY fluticasone propionate 220 mcg/actuation Hfa Aerosol Inhaler 0 puff INHALATION DAILY Rx Instructions: 1-2 PUFFS ONCE DAILY Discharge Instructions Instructions: Chest Pain (DC) Stand Alone Forms: Nursing Discharge Form Referrals: Erica Medrano MD [ [facility] - (This 61-year-old male came to the ED for chest pain.? He has a history of a TIA in 2016 but no history of coronary artery disease. 3 negatvie troponins, no chest pain, no SOB. ) Didier Romero [Primary Care Provider] - 10/24/21 9:45 am () Activity:: Activity as Tolerated Equipment/Supplies:: No Equipment Needed Diet:: Low Sodium Discharge Orders Discharge Orders: Discharge Order (Routine); Ordered 10/21/21 Ordered By: Bhavana Turcios Other Ambulatory Orders: NM MPI rest & stress grp (Routine) Location: None Selected Ordered By: Bhavana Turcios Discharge Data Discharge Date/Time-TO BE ENTERED AT DEPARTURE: 10/21/21 15:52 DS: Summary Time Spent with Patient providing and/or coordinating discharge services: Less than 30 minutes Status at Discharge Functional status at discharge: independent ambulation Overall status at discharge: patient is back to baseline Mental Status: mental status grossly normal Speech and Movement: speech and movement normal Mood: congruent mood Affect: normal affect Exam Psych Mental Status: mental status grossly normal Speech and Movement: speech and movement normal Mood: congruent mood Affect: normal affect DS: Data Vitals/I&O Vitals and I&O: Vital Signs Temperature 36.8 C 10/21/21 11:07 Temperature Source Tympanic 10/21/21 11:07 Pulse 69 10/21/21 11:07 Pulse Rhythm Regular 10/21/21 07:17 Pulse 69 10/21/21 05:50 Respiratory Rate 18 10/21/21 11:07 Respiratory Effort 10/21/21 07:17 Respiratory Depth Normal 10/21/21 07:17 Respiratory Pattern Normal 10/21/21 07:17 Blood Pressure 156/88 H 10/21/21 11:07 Blood Pressure Mean 105 10/21/21 05:46 Blood Pressure Position Sitting 10/21/21 04:12 Pulse Oximetry 97 10/21/21 11:07 Oxygen Delivery Method Room Air 10/21/21 11:07 Oxygen Flow Rate 0 10/21/21 11:07 Pain Level 0 10/21/21 11:07 Comment 10/21/21 04:41 Intake & Output 10/20/21 10/21/21 10/21/21 23:59 11:59 23:59 Intake Total 870 / 870 Output Total 850 / 850 Balance Weight 89.811 kg Intake: IV 500 / 500 Oral 370 / 370 Output: Urine 850 / 850 Other: Urine Color Yellow Urine Appearance Clear Urine Odor Normal Voiding Methods Urinal Data Completed and Pending Labs on day of discharge: Labs from last 24 hours 10/21/21 10/21/21 10/21/21 12:20 06:45 05:08 WBC RBC Hgb Hct MCV MCH MCHC RDW Plt Count MPV Immature Gran % Neutrophils % Lymphocytes % Monocytes % Eosinophils % Basophils % Nucleated RBC % Absolute Neutrophils Absolute Lymphocytes Absolute Monocytes Absolute Eosinophils Absolute Basophils PT INR APTT D-Dimer Sodium Potassium Chloride Carbon Dioxide Anion Gap BUN Creatinine Estimated GFR/1.73 m2 Glucose Calcium Total Bilirubin AST ALT Alkaline Phosphatase Troponin I Pending < 50 Total Protein Albumin Lipase COVID-19 Source Nasal/Nares SARS-CoV-2 (PCR) Negative 10/21/21 10/21/21 10/21/21 04:05 04:05 04:05 WBC 8.44 RBC 4.83 Hgb 15.4 Hct 44.3 MCV 92 MCH 31.9 MCHC 34.8 RDW 12.1 Plt Count 217 MPV 9.3 Immature Gran % 0.2 Neutrophils % 55.7 Lymphocytes % 28.8 Monocytes % 11.6 Eosinophils % 2.6 Basophils % 1.1 Nucleated RBC % 0.0 Absolute Neutrophils 4.70 Absolute Lymphocytes 2.43 Absolute Monocytes 0.98 H Absolute Eosinophils 0.22 Absolute Basophils 0.09 PT 9.4 INR 0.9 APTT 23.4 D-Dimer 281 Sodium 136 Potassium 4.1 Chloride 97 L Carbon Dioxide 27.0 Anion Gap 12.0 H BUN 12 Creatinine 1.0 Estimated GFR/1.73 m2 >= 60.00 Glucose 125 H Calcium 9.1 Total Bilirubin 0.7 AST 23 ALT 33 Alkaline Phosphatase 53 Troponin I < 50 Total Protein 7.3 Albumin 4.2 Lipase 239 COVID-19 Source SARS-CoV-2 (PCR) PFSH All Active Problems Chest pain (Acute) PTSD (post-traumatic stress disorder) (Acute) Lumbar pain with radiation down both legs (Acute) Tremor (Acute) Ulnar neuropathy at elbow of right upper extremity (Acute) Ulnar neuropathy at elbow of left upper extremity (Acute) Carpal tunnel syndrome on both sides (Acute) Cervical strain (Acute) Tremor observed on examination (Acute) Numbness and tingling in left hand (Acute) Cervical spondylosis (Acute) Lumbar strain (Acute) Neck pain, acute (Acute) Trochanteric bursitis, right hip (Acute) Trochanteric bursitis, left hip (Acute) Weakness of both hips (Acute) History of bilateral total hip arthroplasty (Acute 05/07/19) Dr. Munguia Acromioclavicular arthrosis, bilateral (Acute 12/27/15) Biceps tendinitis of right shoulder (Acute 06/27/17) Right rotator cuff tendinitis (Acute 12/27/15) Tear of left rotator cuff (Acute 10/13/15) Medical History Asthma Chronic GERD Gout Hypertension TIA (transient ischemic attack) (~07/2015) Surgical History H/O melanoma excision rt torso H/O spinal fusion L4-S1 [facility] [place] 1990 History of arthroscopy of right shoulder with distal clavicle excision and biceps tenodesis, 2017 History of colonoscopy History of right inguinal hernia repair 1984 History of tonsillectomy S/P left rotator cuff repair 1991 Family History Maternal Uncle Heart disease Father Hypertension Hyperlipidemia Brother Hyperlipidemia Mother Seizure Headache Social History Smoking/Tobacco Use Status: Never Smoking risk assessment performed?: Yes Alcohol Intake: current Alcohol Intake frequency: 3 or more drinks per day Alcohol type: beer Drug use: Never Household members: spouse Housing: house Number of Children: 1 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
[2021-10-21 14:37] LABS: Troponin I < 50 ng/L (<or=60)
--- NOTE | 2021-10-21 14:38 | CHAPLAIN ---
Grayson was in bed when I visited. His , an MISSILE FACILITIES REPAIRER at sleep lab and [facility], was with him. Yousif said he is feeling better and expecting to be discharged to day. I explained my role and offered support. He is connected to a [employer] Christian in [place].
== END 2021-10-21 15:52 | disposition home or self-care (01) ==
LOC: ER 06:24 → MS 06:37
PROVIDERS: Nurse Practitioner Family; Admitting Provider Family Medicine; Emergency Provider Student in an Organized Health Care Education/Training Program; PCP Family Medicine; Visit Provider Family Medicine
DX: R07.9 Chest pain, unspecified (principal); I10 Essential (primary) hypertension; K21.9 Gastro-esophageal reflux disease without esophagitis; J45.909 Unspecified asthma, uncomplicated; Z86.73 Personal history of transient ischemic attack (TIA), and cerebral infarction without residual deficits; Z82.3 Family history of stroke; R25.1 Tremor, unspecified; R06.02 Shortness of breath; Z79.82 Long term (current) use of aspirin; Z82.41 Family history of sudden cardiac death; Z79.899 Other long term (current) drug therapy; Z20.822 Contact with and (suspected) exposure to COVID-19
CPT/HCPCS: 36415; 80053; 83690; 87635; 93005; 96360; 96361; 99285; 71045; 84484; 85025; 85379; 85610; 85730; 93010; 99235; G0378

== ENCOUNTER → 2022-01-10 02:38 | Outpatient (CLI) | payer OTHER, SELFPAY ==
--- NOTE | 2022-01-10 07:45 | DI.MRI_ITS ---
Exam(s) MR LUMBAR SPINE WO EXAM: MR LUMBAR SPINE WO CLINICAL HISTORY: new symptom of incontinence associated with pain,m54.5,r15.9. TECHNIQUE: Multiplanar multisequence MRI of the Lumbar spine was performed. COMPARISON: CR XR hip RT complete AP pelvis from 01/09/2019 CR XR PELVIS AP from 04/25/2019 MR MR LUMBAR SPINE WO from 10/08/[address] LUMBAR SPINE WO from 04/15/2021 CR,XR XR PORTABLE CHEST AP from 10/21/2021 FINDINGS: Bones: There is a hemangioma in the L1 vertebral body, unchanged. There are degenerative signal sutton ges in the vertebral endplates, greatest at L3-4. There is some red marrow reconversion. Clinical c orrelation recommended.. The vertebral body heights are well maintained. Cord: The conus tip ends at the T12 level. It is of normal size and signal intensity. T12-L1: No disc herniations or bulges are present. No central spinal canal or neural foraminal stenos is. L1-2: No disc herniations or bulges are present. No central spinal canal or neural foraminal stenosis . L2-3: Mild concentric disc bulging. Mild facet degenerative changes and ligamentous hypertrophy crea ting mild central canal stenosis. Mild bilateral neural foraminal narrowing.. L3-4: Moderate loss of disc height. Prominent facet joint degenerative changes as well as ligamentou s hypertrophy combining to produce moderate central canal stenosis. There is mild bilateral neural f oraminal narrowing. L4-5: Minimal disc bulging. Prominent facet degenerative changes. Chronic defect in the posterior e lements. L5-S1: There is again noted to be a chronic deformity at the L5-S1 level with the L5 vertebral body p ositioned anterior to the S1 level with apparent bony fusion. The SI joints are unremarkable as visualized.. Soft tissues: The paraspinal soft tissues are unremarkable. Aorta is normal in diameter. IMPRESSION: Chronic deformity at L 5 S1. Stable degenerative disc changes and facet degenerative changes, greate st at L3-4 where there is moderate central canal stenosis mild bilateral neural foraminal narrowing. No new disc herniation. DATA REPOSITORY:
== END ==
PROVIDERS: PCP Family Medicine; Visit Provider Nurse Practitioner Family
DX: M54.59 Other low back pain (principal); R15.9 Full incontinence of feces; M47.816 Spondylosis without myelopathy or radiculopathy, lumbar region; M43.9 Deforming dorsopathy, unspecified
CPT/HCPCS: 72148

== ENCOUNTER → 2022-04-03 01:43 | Outpatient (CLI) | payer OTHER, SELFPAY ==
--- NOTE | 2022-04-03 08:45 | DI.NM_ITS ---
APPROVED REPORT Exam: Exercise Treadmill Patient Location: Out-Patient Room/Bed: Stress Nurse: Cori Porras RN Ordering Provider:ZACK MUHAMMAD, Contact Number: [phone] BMI: 27.25 Baseline Rhythm: Sinus Rhythm Indications: CHEST PAIN Medical History Medical History: Asthma, COPD, GERD, HTN, TIA, PTSD, Chest pain Cardiac Medications: Omeprzole, Metoprolol succinate, Isosorbide mononitrate, Irbesartan, Fluticasone propionate, Atorvastatin, Aspirin Allergies: Chlorhexidine gluconate, Hydromorphone, Oxycodone Cardiac Risk Factors: HTN, FHX of CAD, Asthma, COPD Previous Cardiac Procedures: None Pretest Chest Pain Characteristics: No chest pain Exercise History: Physically active Physical Disabilities: None Lung Sounds: Clear to auscultation Heart Sounds: Regular Stress Test Details Test: Exercise stress testing was performed using a Juan protocol. Nuclear Acquisition: Rest Tc-99m/Stress Tc-99m 1 day Rest Isotope: Tc-99m Sestamibi. Dose: 9.5 Date: 04/03/2022 Injection Time: 0900 Stress Isotope: Tc-99m Sestamibi. Dose: 32.0 Date: 04/03/2022 Injection Time: 1020 HR Resting HR Supine: 76 bpm Max Heart Rate (APMHR): 159.392200 bpm Resting HR Standin bpm Target HR (85% APMHR): 135.306221 bpm Max HR Achieved: 148 bpm % of APMHR: 93.08 Recovery HR: 93 bpm HR response to stress: Normal HR response to stress Comment: Metoprolol succinate not held. BP Resting BP Supine: 150/84 mmHg Resting BP Standin/98 mmHg Max BP: 184/98 mmHg Recovery BP: 160/86 mmHg BP response to stress: Normal blood pressure response to stress. ECG Resting ECG: Sinus Rhythm Ectopy: None Stress ECG: Sinus Tachycardia ST Change: No significant ST segment changes noted Arrhythmia: None Recovery ECG: Sinus Rhythm Recovery ST Change: No significant ST segment changes noted Recovery Arrhythmia: rare PVC Clinical Reason for Termination: Fatigue Stress Symptoms: None Exercise duration: 9 min00 sec Highest Stage Reached: Stage 3: 3.4 mph at 14% grade. Exercise capacity: 10.16 METs Sharif Treadmill Score: 9 Rate Pressure Product: 19800 Stress ECG Conclusion 1. Resting electrocardiogram was within normal limits 2. The patient exercised on the Juan protocol and completed a workload of 10.16 METS 3. Normal heart rate and blood pressure response to exercise. The patient achieved 93% of predicted heart rate for age 4. There was no electrocardiographic evidence of myocardial ischemia 5. There were no significant dysrhythmias 6. See MPI report Sharif Treadmill Score is 9 which is Low risk. Stress Test Summary STAGE Time (mins) Speed (mph) Grade (%) HR BP SpO2 SYMPTOMS METS Supine 76 150/84 Standing 77 152/98 1 3 1.7 10 101 158/82 4.5 2 6 2.5 12 120 168/88 7 3 9 3.4 14 146 184/98 10 1 min recovery 132 182/84 3 min recovery 100 178/90 6 min recovery 93 160/86 MPI Conclusion Myocardial perfusion is normal. There is no myocardial ischemia or evidence of prior infarction EF 69%, normal wall motion Radiologist Interpretation Radiologist agrees with Block Sawyer's Interpretation. Radiologist Interpretation by: Jodi Calderon MD Interpretation Date/Time: 04/03/2022 17:01:48
== END ==
PROVIDERS: PCP Family Medicine; Visit Provider Family Medicine
DX: R07.89 Other chest pain (principal)
CPT/HCPCS: 78452; 93017

== ENCOUNTER 2022-07-17 11:35 | Outpatient (CLI) | payer OTHER, SELFPAY ==
--- NOTE | 2022-07-17 08:45 | DI.RAD_ITS ---
Exam(s) XR KNEE LT 3V AP,LAT,PAUL EXAM: XR KNEE LT 3V AP,LAT,PAUL CLINICAL HISTORY: left knee pain. TECHNIQUE: 2D digital imaging was performed. Three views. COMPARISON: No exams were available for comparison FINDINGS: BONES: No acute fracture is present. No bony destructive lesion is seen. JOINTS: Minimal periarticular spurring. A joint effusion is seen. SOFT TISSUE: Normal. IMPRESSION: Joint effusion. Minimal degenerative changes. DATA REPOSITORY: RADIATION DOSE DELIVERED:
== END 2022-07-17 11:36 | disposition home or self-care (01) ==
LOC: DIORS 11:35
PROVIDERS: PCP Family Medicine; Referring Provider Family Medicine; Visit Provider Physician Assistant
DX: M25.462 Effusion, left knee (principal)
CPT/HCPCS: 73562

== ENCOUNTER 2022-07-17 12:52 | Outpatient (REF) | payer OTHER, SELFPAY ==
[2022-07-17 13:26] LABS: Clarity Clear; Nucleated Cells 175 uL (0)
[2022-07-17 13:33] LABS: Crystals (BF) No Crystals seen
[2022-07-17 14:06] LABS: Mononuclear Cells 86 %; Polynuclear Cells 14 %
== END 2022-07-17 12:53 | disposition home or self-care (01) ==
LOC: LBN 12:52
PROVIDERS: PCP Family Medicine; Visit Provider Physician Assistant
DX: M23.8X2 Other internal derangements of left knee; M25.562 Pain in left knee; M25.462 Effusion, left knee
CPT/HCPCS: 87070; 87205; 89051; 89060

== ENCOUNTER 2022-11-01 02:11 | Outpatient (CLI) | payer OTHER, SELFPAY ==
--- NOTE | 2022-11-01 13:15 | DI.MRI_ITS ---
Exam(s) MR LOWER JOINT LT WO EXAM: MR LOWER JOINT LT WO CLINICAL HISTORY: PAIN,internal derangement lt knee, m23.92. TECHNIQUE: Multiplanar multisequence MRI was performed. COMPARISON: Plain films dated 17 July 2022 FINDINGS: BONES: There is no fracture or contusion pattern. JOINTS: A small joint effusion is present. Articular cartilage: Patellofemoral joint: Mild cartilage thinning at the focal defect. Medial femoral tibial joint: Cartilage thinning over the medial femoral condyle. Some high signal i n the medial aspect of the medial femoral condyle. Lateral femoral tibial joint: Articular cartilage is unremarkable. TENDONS: Extensor mechanism: Unremarkable. Medial retinaculum: Unremarkable. Lateral retinaculum: Unremarkable. Popliteus: Unremarkable. MUSCLES: Unremarkable. MENISCI: The medial meniscus is somewhat diminutive in peripherally displaced at the body. No focal tear visible.. The lateral meniscus is unremarkable. SOFT TISSUES: Small Denise's cyst. Mild edema in the anterior subcutaneous fat. LIGAMENTS: Anterior Cruciate: Some edema near the tibial attachment but no focal tear visible. Posterior Cruciate: Unremarkable. Medial Collateral:Unremarkable. Lateral Collateral: Unremarkable. OTHER: IMPRESSION: Question of ACL sprain. Degenerative changes of the medial meniscus and adjacent chondromalacia. Small popliteal cyst. DATA REPOSITORY:
== END 2022-11-01 02:31 ==
LOC: DI 02:12
PROVIDERS: PCP Family Medicine; Visit Provider Student in an Organized Health Care Education/Training Program
DX: M23.204 Derangement of unspecified medial meniscus due to old tear or injury, left knee; M25.562 Pain in left knee
CPT/HCPCS: 73721

== ENCOUNTER → 2023-01-11 01:04 | Outpatient (CLI) | payer OTHER, SELFPAY ==
--- NOTE | 2023-01-11 | DI.MRI_ITS ---
Exam(s) MR BRAIN WO EXAM: MR BRAIN WO CLINICAL HISTORY: CLUSTER HEADACHE,TRIGEMINAL TECHNIQUE: Multiplanar multisequence MRI of the brain was performed. COMPARISON: No exams were available for comparison FINDINGS: VENTRICLES AND EXTRA AXIAL SPACES: Normal in size and morphology for the patient's age. MIDLINE SHIFT: None. CEREBRAL PARENCHYMA: No focus of restricted diffusion to suggest acute infarct. No space-occupying le lizzy identified. There are several tiny foci of hyperintense signal seen in the white matter on the F LAIR and T2 weighted images likely reflecting small vessel ischemic disease. HEMORRHAGE: None. BRAINSTEM/CEREBELLUM: Normal. CALVARIUM: Normal. VISUALIZED PARANASAL SINUSES/MASTOIDS:Clear. [place]: Normal flow void. PITUITARY GLAND: Unremarkable. OTHER FINDINGS: None. IMPRESSION: 1. No evidence of an acute infarct or intracranial mass. 2. Findings most suggestive of small vessel ischemic disease. DATA REPOSITORY:
--- NOTE | 2023-01-11 | DI.MRI_ITS ---
Exam(s) MR CERVICAL SPINE WO EXAM: MR CERVICAL SPINE WO CLINICAL HISTORY: CERVICALGIA, M54.2,RADICULOPATHY TECHNIQUE: Multiplanar multisequence MRI of the cervical spine was performed without intravenous con trast. COMPARISON: MR MR CERVICAL SPINE WO from 03/01/2020 FINDINGS: The examination is limited due to patient motion artifact. BONES: Vertebral body heights are maintained. Intervertebral disc spaces are normal. Alignment is nor mal. Hemangioma is again seen in the C5 vertebral body. Degenerative endplate signal changes are at multiple levels of the cervical spine particularly C6-C7. CERVICAL CORD: Craniovertebral junction is unremarkable. The cervical cord is normal size and signal intensity. SOFT TISSUES: Unremarkable. C2-3: No disc herniation or bulge is identified. No significant central spinal canal or neural forami nal stenosis. C3-4: No disc herniation or bulge is identified. Degenerative changes are seen at the right uncoverte bral joints causing mild right neural foraminal narrowing. C4-5: No disc herniation or bulge is identified. No significant central spinal canal or neural forami nal stenosis C5-6: No disc herniation or bulge is identified. Mild degenerative changes of the right facet joint c ausing mild right neural foraminal narrowing. No significant central spinal canal or left neural for aminal stenosis is present. C6-7: No disc herniation or bulge is identified. No significant central spinal canal stenosis. There are mild hypertrophic changes of the left uncovertebral joint causing mild left neural foraminal asim nosis. No significant right neural foraminal stenosis. C7-T1: There is a mild diffuse disc bulge. There are degenerative changes of the left uncovertebral joints causing marked left neural foraminal stenosis. No significant central spinal canal or neural foraminal stenosis IMPRESSION: Degenerative changes in the cervical spine resulting in neural foraminal stenosis as described above. The findings are most marked at the left at C7-T1. DATA REPOSITORY:
== END ==
PROVIDERS: PCP Family Medicine; Visit Provider Neurological Surgery
DX: M54.2 Cervicalgia (principal); G44.009 Cluster headache syndrome, unspecified, not intractable; G50.0 Trigeminal neuralgia; M43.10 Spondylolisthesis, site unspecified
CPT/HCPCS: 70551; 72141

== ENCOUNTER → 2023-04-10 00:44 | Outpatient (CLI) | payer OTHER, SELFPAY ==
--- NOTE | 2023-04-10 | DI.CT_ITS ---
Exam(s) CT CERVICAL SPINE WO EXAM: CT CERVICAL SPINE WO CLINICAL HISTORY: CERVICALGIA,M54.2,NECK OA. TECHNIQUE: Imaging Protocol: Axial computed tomography images with coronal and sagittal reformatted images were created and reviewed COMPARISON: MR MR BRAIN WO from 01/11/2023 FINDINGS: CERVICAL SPINE: There is lordotic curvature of the cervical spine. There is no evidence of acute fracture. No significant prevertebral soft tissue swelling. No significant listhesis. Main finding here is advanced chronic disc space narrowing at C6-7 level with anterior osteophytes at this level also noted. Also small left-sided Luschka joint osteophytes at this level. No Luschka j oint osteophytes on the right side. There is mild disc space narrowing at C5-6 level. No Luschka brian int osteophytes on either side at this level. Other disc spaces exhibit normal height. There is mod erate facet arthropathy evident at C3-4 level, this on the right side. There is no evidence facet joint malalignment. Bone density is normal. Lucencies are noted in the c entral C5 vertebral body and left side of C6 which are probably intraosseous hemangiomas. No obvious prominent disc herniations, realized limitations of CT scan in the cervical spine as oppos ed to MRI. No prominent central spinal canal stenosis. Visualized lung apices are clear bilaterally. IMPRESSION: Degenerative disc disease at C5-6 and more prominently C6-7. No obvious osseous canal stenosis. Fac et arthropathy right-sided C3-4 level. No facet malalignment. No fractures. No listhesis. Benign-appearing bone lesions in C5 and C6 which are probably intraosseous hemangiomas. RADIATION DOSE DELIVERED: Total DLP DATA REPOSITORY: All CT scans at this facility are submitted to the National Radiology Data Registry (NRDR) Dose Index Registry (DIR) with the [employer] (A[employer]). RADIATION OPTIMIZATION: All CT scans at this facility use at least one of these dose optimization te chniques: automated exposure control; mA and/or kV adjustment per patient size (includes targeted exa ms where dose is matched to clinical indication); or iterative reconstruction.
--- NOTE | 2023-04-10 08:29 | DI.RAD_ITS ---
Exam(s) XR CERVICAL SP SUAZO TRAUMA 2-3V EXAM: XR CERVICAL SP SUAZO TRAUMA 2-3V CLINICAL HISTORY: PAIN. TECHNIQUE: 2D digital imaging was performed. COMPARISON: CR XR CERVICAL SPINE COMP 4-5V from 01/08/2020 FINDINGS: Two views: X and extension lateral views. No evidence of fracture nor significant listhesis upon flexion and extension. There is chronic advanced disc space narrowing at C6-7 level with anterior osteophytes at this level. The other disc spaces exhibit normal height. There is no facet arthropathy evident. No atlantoaxi al subluxation. No prevertebral soft tissue swelling. Calcifications noted in the supraspinous ligament in the mid-lower cervical region. Bone density nor mal. No osseous lesions. IMPRESSION: Chronic degenerative disc disease at C6-7 level. No significant listhesis exhibited with flexion and extension. DATA REPOSITORY: RADIATION DOSE DELIVERED:
== END ==
PROVIDERS: PCP Family Medicine; Visit Provider Neurological Surgery
DX: M50.123 Cervical disc disorder at C6-C7 level with radiculopathy (principal)
CPT/HCPCS: 72040; 72125

== ENCOUNTER 2023-07-13 16:02 | Outpatient (REF) | payer OTHER, SELFPAY ==
[2023-07-13 16:11] LABS: Abs Immature Grans 0.04 10^3/uL (0.0-0.06); Absolute Basophil Count 0.07 10^3/uL (0.0-0.2); Absolute Eosinophil Count 0.14 10^3/uL (0.0-0.7); Absolute Lymphocyte Count 1.88 10^3/uL (1.2-3.4); Absolute Monocyte Count 0.83 10^3/uL (0.1-0.8); Absolute Neutrophil Count 3.29 10^3/uL (1.2-6.7); Basophils % 1.1; Eosinophils % 2.2; HCT 42.8 % (40.0-50.0); HGB 14.9 g/dL (13.5-17.5); Immature Grans % 0.6; Lymphocytes % 30.1; MCH 31.7 pg (27.0-33.0); MCHC 34.8 % (32.0-36.0); MCV 91 fL (80-95); MPV 9.2 fL (8.0-11.0); Monocytes % 13.3; Neutrophils % 52.7; Platelet Count 230 10^3/uL (130-400); RDW 12.4 % (11.8-14.1); RDW-SD 41.1 fL; WBC 6.25 10^3/uL (4.4-10.8)
[2023-07-13 16:16] LABS: Anion Gap 10.9 mmol/L (3-11); BUN 8 mg/dL (7-18); CO2 29.1 mmol/L (21.0-32.0); CREATININE 0.9 mg/dL (0.70-1.30); Calcium 9.7 mg/dL (8.5-10.1); Chloride 94 mmol/L (98-107); Estimated GFR 96.57 (mL/min/1.73m2); Glucose 105 mg/dL (74-106); Potassium 4.8 mmol/L (3.5-5.1); Sodium 134 mmol/L (136-145)
== END 2023-07-13 16:03 | disposition home or self-care (01) ==
LOC: NCHCN 16:02
PROVIDERS: PCP Family Medicine; Visit Provider Family Medicine
DX: Z01.818 Encounter for other preprocedural examination (principal)
CPT/HCPCS: 80048; 85025

== ENCOUNTER 2023-08-13 15:43 | Outpatient (REF) | payer OTHER, SELFPAY ==
[2023-08-13 20:25] LABS: Uric Acid 5.5 mg/dL (3.5-7.2)
[2023-08-13 21:05] LABS: Calculated LDL 148 mg/dL (<100); Cholesterol 251 mg/dL (<200); HDL Cholesterol 93 mg/dL (40-60); Triglyceride 53 mg/dL (<150)
[2023-08-13 21:06] LABS: Vitamin B12 > 2000 pg/mL (193-986)
[2023-08-14 19:51] LABS: HIV-1/2 Ag & Ab Screen Negative (Negative)
[2023-08-14 19:54] LABS: Hepatitis C Ab w Rflx HCV PCR Negative (Negative)
== END 2023-08-13 15:44 | disposition home or self-care (01) ==
LOC: NCHCN 15:43
PROVIDERS: PCP Family Medicine; Visit Provider Family Medicine
DX: M10.9 Gout, unspecified (principal); Z13.1 Encounter for screening for diabetes mellitus; E78.5 Hyperlipidemia, unspecified
CPT/HCPCS: 80061; 86803; 87389; 82607; 83036; 84550

== ENCOUNTER 2023-08-24 09:42 | Outpatient (REF) | payer OTHER, BC, SELFPAY ==
[2023-08-24 16:25] LABS: Hemoglobin A1C 5.7 % (<5.7)
[2023-08-31 16:08] LABS: Testosterone, Free 12.6 ng/dL (3.67-13.9); Testosterone, Total 430 ng/dL (240-950)
== END 2023-08-24 09:43 | disposition home or self-care (01) ==
LOC: NCHCN 09:42
PROVIDERS: PCP Family Medicine; Visit Provider Family Medicine
DX: R89.1 Abnormal level of hormones in specimens from other organs, systems and tissues (principal); Z13.1 Encounter for screening for diabetes mellitus
CPT/HCPCS: 84402; 84403; 83036

== ENCOUNTER 2023-11-14 13:12 | Outpatient (REF) | payer OTHER, BC, SELFPAY ==
[2023-11-14 15:47] LABS: Calculated LDL 67 mg/dL (<100); Cholesterol 182 mg/dL (<200); HDL Cholesterol 102 mg/dL (40-60); Triglyceride 66 mg/dL (<150); Vitamin B12 1573 pg/mL (193-986)
== END 2023-11-14 13:13 | disposition home or self-care (01) ==
LOC: NCHCN 13:12
PROVIDERS: Visit Provider Family Medicine
DX: E78.5 Hyperlipidemia, unspecified (principal); E53.8 Deficiency of other specified B group vitamins
CPT/HCPCS: 80061; 82607

== ENCOUNTER 2023-12-25 18:42 | Outpatient (REF) | payer OTHER, BC, SELFPAY ==
[2023-12-25 15:54] LABS: Abs Immature Grans 0.02 10^3/uL (0.0-0.06); Absolute Basophil Count 0.06 10^3/uL (0.0-0.2); Absolute Eosinophil Count 0.12 10^3/uL (0.0-0.7); Absolute Lymphocyte Count 2.02 10^3/uL (1.2-3.4); Absolute Monocyte Count 1.01 10^3/uL (0.1-0.8); Absolute Neutrophil Count 2.84 10^3/uL (1.2-6.7); HGB 13.5 g/dL (13.5-17.5); Immature Grans % 0.3 %; Lymphocytes % 33.3 %; MCH 32.1 pg (27.0-33.0); MCHC 34.6 % (32.0-36.0); MCV 93 fL (80-95); MPV 8.8 fL (8.0-11.0); Monocytes % 16.6 %; Neutrophils % 46.8 %; Platelet Count 222 10^3/uL (130-400); RDW 13.5 % (11.8-14.1); RDW-SD 46.3 fL; WBC 6.07 10^3/uL (4.4-10.8)
--- OUTSIDE RECORDS SUMMARY | 2023-12-25 18:46 | XMS_ITS | Continuity of Care Document ---
Author Organization [facility], [facility] [place] [address] Care Team Providers Care Mail Superintendent Name Role Phone ESTER DON Solderer Assembler CHINMAY SHAVER Occupational Medicine EVELYN FLORES Neurosurgeon Assessment No assessment recorded. Plan of Treatment Reminders Order Date Submit Date Provider Last Modified By Organization Details Last Modified Time Details Appointments Nurse Visit 20 2023 02:30P M [facility] Nursing Staff Not available Not available Not available Annual Wellness Exam 40 2023 09:00A M Lizett Caballero Not available Not available Not available Lab lipid panel, serum [address] [facility] (Registration ), [address] [place] [address] [place], [address], 11/14/2023 16:55:14 vitamin B12, serum [address] [facility] (Registration ), [address] [place] [address] [place], [address], 11/14/2023 16:55:02 Referral None recorded . Procedures colonosc opy screenin g (PROC) - last colonosc [place]y in [place] over 10 years ago, normal. [address] [facility], [address] [place] [address] , [address], [place], [address], 12/23/2023 04:08:25 Surgeries None recorded . Imaging None recorded . Medication Orders None recorded . Patient TargetsNo targets recorded. Patient Instructions Encounter Date Encounter Id Patient Instructions Last Modified By Organization Details Last Modified Time 11/14/2023 [id number] continue exercise Not availab le 11/14/2023 09:25:10 Reason for Referral None Reported. Problems Name Status Onset Date Resolution Date Notes Provider Name and Address Organization Details Recorded Time Cervical radiculopathy Active 2023 s/p decompression 07/[address], [place], [address], [facility] 4 11:21:14 Lumbar radiculopathy Completed 202308/13/2023 Removal Reason: resolved with surgery MD [address], [place], [address], [facility] 4 11:37:20 Essential hypertension Active [address], [place], [address], [facility] 4 17:42:56 Chronic neck pain Completed 202308/13/[address], [place], [address], [facility] 4 12:15:27 Chronic hyponatremia Active 2023 133 in [address], [place], [address], [facility] 4 17:45:53 Hyperlipidemi a Active [address], [place], [address], [facility] 4 07:42:47 Overweight Active [address], [place], [address], [facility] 4 07:42:58 Transient cerebral ischemia Active 07/[address], [place], [address], [facility] 4 10:32:59 Spinal stenosis of lumbar region Completed 202308/13/[address], [place], [address], [facility] 4 11:42:38 Osteonecrosis of head of femur Completed 201808/13/2023 s/p bilateral replacement MD [address], [place], [address], [facility] 4 11:18:19 Pain of left knee region Active [address], [place], [address], [facility] 4 11:44:36 Carpal tunnel syndrome Active 2023 by recent EMG studies still residual, despite surgery in [address], [place], [address], 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 4 07:51:12 Mild intermittent asthma Active 2023 PFT with mild obstruction, no change post bronchodilator MD [address], [place], [address], [facility] 4 07:47:07 Gout Active [address], [place], [address], [facility] 4 07:47:14 Anemia Completed 202308/11/[address], [place], [address], [facility] 4 16:11:58 Cobalamin deficiency Active 2023 B12 injections MD [address], [place], [address], [facility] 4 07:51:23 Posttraumatic stress disorder Active [address], [place], [address], [facility] 4 10:30:48 Gastroesophag eal reflux disease Active [address], [place], [address], [facility] 4 10:37:28 Chronic obstructive pulmonary disease Active [address], [place], [address], [facility] 4 11:39:17 History of Malignant melanoma Active [address] Don q6 months. 1 mm Breslow depth, July 2011 diagnosed in [place], right inferior axillary vault area, with a negative sentinel lymph node biopsy MD Keyla [address], [place], [address], [facility] 4 12:17:10 Problem Notes None recorded. Procedures Surgical History Date Name Laterality Status Provider Name and Address Organization Details Recorded Time 07/26/19 24 excision of cervical intervertebral disc completed MD Keyla [address], [place], [address], [facility] 08/13/2023 10:57:34 08/22/19 23 laminectomy completed MD Keyla [address], [place], [address], [facility] 08/13/2023 10:30:23 05/07/20 19 total replacement of hip completed MD Keyla [address], [place], [address], [facility] 08/13/2023 11:18:00 06/04/19 17 excision of distal clavicle completed MD Keyla [address], [place], [address], [facility] 08/13/2023 10:35:53 08/03/19 06 Carpal tunnel surgery completed MD Keyla [address], [place], [address], [facility] 08/13/2023 11:19:28 08/03/18 93 decompression of ulnar nerve completed MD Keyla [address], [place], [address], [facility] 08/13/2023 11:20:05 06/04/18 92 complete repair of rotator cuff completed MD Keyla [address], [place], [address], [facility] 08/13/2023 10:36:57 06/04/18 91 lumbar spinal fusion completed MD Keyla [address], [place], [address], [facility] 08/13/2023 10:33:59 06/04/18 84 repair of right inguinal hernia completed MD Keyla [address], [place], [address], [facility] 08/13/2023 10:34:37 tonsillectomy completed MD Keyla [address], [place], [address], [facility] 08/13/2023 10:33:11 excision of melanoma completed MD Keyla [address], [facility] [address], [facility]. 08/13/2023 10:38:24 Imaging Results None recorded. Procedure Notes None recorded. Medical Equipment None Reported. Allergies No known drug allergies Medications Name Sig Start Date Stop Date Status Note LastModified by Organization Details LastModified Time atorvastati n 20 mg tablet TAKE 1 TABLET BY MOUTH EVERY DAY AT BEDTIME active Not Available Not Available No t Available tizanidine 2 mg tablet TAKE ONE TABLET BY MOUTH EVERY 6 HOURS NEEDED 08/12 completed Not Available Not Available Not Available metoprolol succinate ER 50 mg tablet,exte nded release 24 hr TAKE 1 TABLET BY MOUTH EVERY DAY active Not Available Not Available No t Available allopurinol 100 mg tablet Take 1 tablet every day by oral route. active Not Available Not Available No t Available tramadol 50 mg tablet TAKE 1 TABLET BY MOUTH EVERY 6 HOURS NEEDED FOR PAIN 08/12 completed Not Available Not Available Not Available hydromorpho ne 2 mg tablet TAKE 1 TO 2 TABLETS BY MOUTH EVERY 4 HOURS NEEDED FOR PAIN 07/06 completed Not Available Not Available Not Available cephalexin 500 mg capsule TAKE ONE CAPSULE BY MOUTH TWICE A DAY 07/06 completed Not Available Not Available Not Available cyanocobala min (vit B-12) 1,000 mcg/mL injection solution active Not Available Not Available Not Available Flovent 110 mcg/actuati on aerosol inhaler Inhale 2 puffs twice a day by inhalatio n route. 08/12 completed Not Available Not Available Not Available gabapentin 300 mg capsule TAKE ONE CAPSULE BY MOUTH AT BEDTIME 08/12 completed Not Available Not Available Not Available omeprazole 20 mg capsule,del ayed release TAKE 1 CAPSULE BY MOUTH EVERY DAY active Not Available Not Available No t Available irbesartan 75 mg tablet 08/12 completed Not Available Not Available Not Available folic acid 1 mg tablet Take 1 tablet every day by oral route. 2023 active Not Available Not Available Not Avai lable allopurinol 300 mg tablet TAKE 1 TABLET BY MOUTH EVERY DAY active Not Available Not Available No t Available fluticasone propionate 220 mcg/actuati on HFA aerosol inhaler INHALE 2 PUFFS BY MOUTH TWICE DAILY active Not Available Not Available No t Available mupirocin 2 % topical ointment 08/12 completed Not Available Not Available Not Available gabapentin 100 mg capsule TAKE ONE CAPSULE BY MOUTH EVERY MORNING; MAY INCREASE TO 2 CAPSULES IF NEEDED. 08/12 completed Not Available Not Available Not Available metoprolol succinate ER 25 mg tablet,exte nded release 24 hr 08/12 completed Not Available Not Available Not Available irbesartan 150 mg tablet TAKE 1 TABLET BY MOUTH EVERY DAY active Not Available Not Available No t Available lorazepam 1 mg tablet TAKE ONE TABLET BY MOUTH ONCE DAILY NEEDED 07/06 completed Not Available Not Available Not Available testosteron e cypionate 200 mg/mL intramuscul ar oil Inject 1 mL every 2 weeks by intramusc ular route. 2023 active Not Available Not Available Not Avai lable methylpredn isolone 4 mg tablets in a dose pack TAKE IT BY MOUTH FOR 6 DAYS DIRECTED 08/12 completed Not Available Not Available Not Available fluticasone propionate 50 mcg/actuati on nasal spray,suspe nsion active Not Available Not Available Not Available diazepam 5 mg tablet TAKE 1 TABLET BY MOUTH EVERY 6 HOURS NEEDED FOR ANXIETY 07/06 completed Not Available Not Available Not Available Asmanex Twisthaler 220 mcg/actuati on(60 doses) breath activated inhalr 07/06 completed Not Available Not Available Not Available Baby Aspirin take 1 tablet daily active Not Available Not Available No t Available Vitamin B12 take 2500 mcg daily 08/10 completed Not Available Not Available Not Available Vitamin D3 125 mcg (5,000 unit) tablet Take 1 tablet every day by oral route. active Not Available Not Available No t Available Combivent Respimat 20 mcg-100 mcg/actuati on solution for inhalation Inhale 2 puffs 4 times a day by inhalatio n route as needed. 2023 active Not Available Not Available Not Avai lable Combivent Respimat 2 puffs PRN 08/12 completed Not Available Not Available Not Available Qvar RediHaler 40 mcg/actuati on HFA breath activated aerosol INHALE 2 PUFFS BY MOUTH TWICE DAILY active Not Available Not Available No t Available fluticasone prop 113 mcg/actuati on breath activated pwdr inhal,senso r Inhale 1 puff twice a day by inhalatio n route. 08/12 completed Not Available Not Available Not Available Vitals Date Recorded Body height Body mass index (BMI) Body weight Body temperature Heart rate Respiratory rate Systolic blood pressure Diastolic blood pressure Provider Name and Address Organization Details Last Updated DateTime 4 177.8 cm 26.5 kg/m2 04103.5 9 g 98 [degF] 76 /min 16 /min 132 mm[Hg] 90 mm[Hg] BIANCA KRUGER LPN [facility] 4 08:53:59 Social History Question Answer Notes LastModified by Organizat ion Details LastModified Time Tobacco Smoking Status Never Smoker BIANCA KRUGER LPN [facility], [facility] 08/13/2023 10:48:49 Would You Say That, In General, Your Health Is Good Information not available 08/13/2023 How Often Does Anyone, Including Family, Physically Hurt You? Never Information not available 08/13/2023 How Often Does Anyone, Including Family, Insult Or Talk Down To You? Never Information no t available 08/13/2023 How Often Does Anyone, Including Family, Threaten You With Harm? Never Information not available 08/13/2023 How Often Does Anyone, Including Family, Scream Or Curse At You? Never Information not available 08/13/2023 Within The Past 12 Months, You Worried That Your Food Would Run Out Before You Got Money To Buy More. Never True Information n ot available 08/13/2023 Within The Past 12 Months, The Food You Bought Just Didn't Last And You Didn't Have Money To Get More. Never True Information not available 08/13/2023 How Hard Is It For You To Pay For The Very Basics Like Food, Housing, Medical Care, And Heating? Would You Say It Is: Very Hard Information not available 08/13/2023 In The Past 12 Months, Has Lack Of Reliable Transportation Kept You From Medical Appointments, Meetings, Work Or From Getting Things Needed For Daily Living? Yes Information not available 08/13/2023 What Is Your Housing Situation Today? I Have Housing. Information not available 08/13/2023 How Often In The Past Year Have You Used Marijuana (including Smoking, Vaping, Dabbing, Or Edibles)? Never Information not available 08/13/2023 How Often In The Past Year Have You Used Prescription Medications That Were Not Prescribed To You? Never Information not available 08/13/2023 How Often In The Past Year Have You Taken Your Own Prescription Medication More Than The Way It Was Prescribed Or For Different Reasons Than Its Intended Purpose? Never Information not available 08/13/2023 How Often In The Past Year Have You Used Other Drugs (for Example, Heroin, Cocaine, Meth, Salvia, Inhalants)? Never Information not available 08/13/2023 Have You Ever Used IV Drugs? No Information not available 08/13/2023 Date Of Most Recent SBINS 08/13/2023 Information not available 08/13/2023 What Was The Date Of Your Most Recent Tobacco Screening? 08/13/2023 Information n ot available 08/13/2023 Has Tobacco Cessation Counseling Been Provided? No Information not available 08/13/2023 Do You Or Have You Ever Used Any Other Forms Of Tobacco Or Nicotine? No Information not available 08/13/2023 Sex: Unknown Functional Status None recorded. Mental Status None recorded. Family History Relationship Description Onset Age of this Age Resolved Age Notes Maternal Uncle Coronary atherosclerosis Father Essential hypertension Father Hyperlipidemia Brother Hyperlipidemia Mother Seizure disorder Medical History No medical history recorded. Immunizations Vaccine Type Date Status Provider Name and Address Organization Details Recorded Time zoster recombinant 08/24/2023 completed ISIS Dutton, [facility] 08/24/2023 08:47:24 Tdap 11/04/2010 completed LILIYA LARRY, [facility] 11/14/2023 09:01:36 Td (adult), 2 Lf tetanus toxoid, preservative free, adsorbed 12/15/2020 completed LILIYA LARRY, [facility] 11/14/2023 09:02:00 zoster recombinant 12/15/2020 LILIYA Card, [facility] 11/14/2023 09:02:30 Pneumococcal conjugate PCV 13 06/09/2015 completed LILIYA LARRY, [facility] - [facility], [facility]. 11/14/2023 09:03:48 pneumococcal polysaccharide PPV23 07/29/2010 completed LILIYA LARRY, [facility] 11/14/2023 09:04:19 Past Encounters Encounter ID Performer Location Encounter Start Date Encounter Closed Date Diagnosis/Indication Diagnosis SNOMED-CT Code [id number] LIZETT CABALLERO MD [facility] [address] [place] [address] 11/14/2023 08:45:10 11/14/2023 09:38:41 Overweight 728546333 Screening for malignant neoplasm of colon 570860161 Cobalamin deficiency 190 282318 Hyperlipidemia 99400756 Essential hypertension 75221633 Gout 45031253 Health Concerns Section Related Observation LastModified by Organization Detai ls LastModified Time None Recorded Concern Status LastModified by Organization Details LastModified Time None Recorded Payers Encounter Date Sequence Insurance Name Policy Number Policy Brooks Covered Member ID Brooks Member ID Guarantor Name 11/14/2023 1 [facility] [id number] Grayson Dodd III [id number] Grayson Dodd 11/14/2023 2 [place] [facility] Valorie Dodd [id number] Grayson Dodd Notes Date Note Type Note Provider Name and Address Organization Details Recorded Time 11/14/2023 text/html HPI Notes: Here for follow up of multiple problems as noted below: Last seen 08/23 to establish care. His left knee has been swelling up again recently, had been good over a year after he had a steroid injection. He plans to follow-up with Dr. Munguia. essential hypertension BP was bit high at last visit, continues irbesartan 150 mg, increased metoprolol from 37.5 mg to 50 mg daily. BP at home has been good, most DBP are under 85. gout- uric acid level was low, suggested daily allopurinol 100 mg daily. He has been taking that. He has not had any recent flares. cobalamin deficiency= B12 level was high, suggested decreasing from q 4 weeks to q 6 weeks. He has not been super tired, sleeps better after his surgery. hyperlipidemia Given his prior TIA, and CV10 of 11 percent, I recommend restarting daily atorvastatin, which he has been taking. abnormal testosterone- level prior to injection in August was in range. THE MUSCLE EVERY 2 WEEKS to 1 mL every 2 weeks cervical radiculopathy initial excellent response to recent surgery, will follow up with neurosurgery at [facility], and occupational medicine. overweight Has had steady weight loss since improved diet and exercise. hx of melanoma- sees Dr. Don every 6 months, his prior PCP did CXR and blood work every 6 months. LIZETT CABALLERO MD [address], [place], [address], [facility]. 11/14/2023 12:09:20
--- OUTSIDE RECORDS SUMMARY | 2023-12-25 18:46 | XMS_ITS | Data Portability ---
Author Organization [facility], [facility] Address [address] [place] [facility] [place] [address] Care Team Providers Care Requirements Manager Name Role Phone ESTER DON Metalizer CHINMAY SHAVER Occupational Medicine KINA HODGES Neurosurgeon Assessment Encounter Date Assessment Date Assessment LastModified by Organization Details LastModified Time 08/13/2023 08/13/2023 The total time devoted to today's encounter, including both the vlwl-ce-dead time with the patient and/or family/caregi haven and udh-dfjr-nh-f keyur time I personally spent is 50 minutes. Not available 08/13/2023 12:34:34 Plan of Treatment Reminders Order Date Submit Date Provider Last Modified By Organization Details Last Modified Time Details Appointments Nurse Visit 20 2023 02:30P M [facility] Nursing Staff Not available Not available Not available Annual Wellness Exam 40 2023 09:00A M Lizett Belle Not available Not available Not available Lab CBC w/ auto diff - Right Ac 1 sst 1 lav 2023 024 [facility] (Registration ), [address] [place] [address] [place], [address], 07/14/2023 09:49:40 BMP, serum or plasma - Right Ac 1 sst 1 lav 2023 024 [facility] (Registration ), [address] [place] [address] [place], [address], 07/14/2023 09:49:00 uric acid, serum or plasma - 3 tigers, BANNER 2023 024 [facility] (Registration ), [address] [place] [address] [place], [address], 08/14/2023 20:11:36 lipids, total, serum - 3 tigers, BANNER 2023 024 [facility] (Registration ), [address] [place] [address] [place], [address], 08/14/2023 20:10:28 HbA1c (hemoglo bin A1c), blood - 3 tigers, BANNER 2023 024 [facility] (Registration ), [address] [place] [address] [place], [address], 08/27/2023 07:30:22 hepatiti s C virus Ab, serum - 3 tigers, BANNER 2023 024 [facility] (Registration ), [address] [place] [address] [place], [address], 08/15/2023 10:53:56 HIV (1+2) Ab screen, serum - 3 tigers, BANNER 2023 024 [facility] (Registration ), [address] [place] [address] [place], [address], 08/15/2023 10:54:35 vitamin B12, serum - 3 tigers, BANNER 2023 024 [facility] (Registration ), [address] [place] [address] [place], [address], 08/14/2023 20:10:06 testoste negrito, free + total, serum - Right AC 2 red 1 lav 2023 024 [email or web address] [facility] (Registration ), [address] [place] [address] [place], [address], 09/03/2023 11:24:00 HbA1c (hemoglo bin A1c), blood - Right AC 2 red 1 lav 2023 024 [facility] (Registration ), [address] [place] [address] , [place], [address], 08/24/2023 16:48:32 lipid panel, serum 2023 024 [facility] (Registration ), [address] [place] [address] , [place], [address], 11/14/2023 16:55:14 vitamin B12, serum 2023 024 [facility] (Registration ), [address] [place] [address] , [place], [address], 11/14/2023 16:55:02 CBC w/ diff - please send copy to Dr. Don 2023 024 [facility] (Registration ), [address] [place] [address] [place], [address], 12/25/2023 14:40:43 Referral None recorded . Procedures colonosc opy screenin g (PROC) - last colonosc opy in [place] over 10 years ago, normal. 2023 024 [facility], [address] [place] [address] , [address], [place], [address], 12/23/2023 04:08:25 Surgeries None recorded . Imaging electroc ardiogra m 2023 024 [facility], [address], [place], [address], 07/13/2023 12:01:51 Medication Orders allopuri nol 300 mg tablet 2023 024 [facility] #[id number], [address] [place] [address], [id number], 11/14/2023 12:04:17 testoste negrito cypionat e 200 mg/mL intramus cular oil 2023 024 [facility] #[id number], [address] [place] [address], [id number], 08/13/2023 12:25:37 omeprazo le 20 mg capsule, delayed release 2023 024 [facility] #[id number], [address] [place] [address], [id number], 08/13/2023 12:19:36 Flovent HFA 220 mcg/actu ation aerosol inhaler 2023 024 [facility] #62259, [address] [place] [address], [id number], 08/13/2023 12:18:32 Combiven t Respimat 20 mcg-100 mcg/actu ation solution for inhalati on 2023 024 [facility] #00998, [address] [place] [address], [id number], 08/13/2023 12:20:27 irbesart an 150 mg tablet 2023 024 [facility] #36238, [address] [place] [address], [id number], 08/13/2023 12:18:34 metoprol ol succinat e ER 50 mg tablet,e xtended release 24 hr 2023 024 [facility] #65389, [address] [place] [address], [id number], 08/13/2023 12:18:33 Patient TargetsNo targets recorded. Patient Instructions Encounter Date Encounter Id Patient Instructions Last Modified By Organization Details Last Modified Time 08/13/2023 [id number] continue exercise Not availab le 08/13/2023 12:37:11 Your blood pressure goal: More than half of BP readings should be in the 125-145 range on the top and under 85 on the bottom Consider restarting ATORVASTATIN to prevent strokes and heart attacks given your prior TIA. Not available 08/13/2023 11:52:00 11/14/2023 [id number] continue exercise Not availab le 11/14/2023 09:25:10 Reason for Referral None Reported. Results Created Date Observation Date Name Description Value Unit Range Abnormal Flag LastModifiedBy Organization Detail LastModifiedTime 07/02/19 24 07/02/2023 lab* BUN 8 mg/dL 8-27 Not Available Not Av ailable 08/14/2023 12:48:25 07/02/19 24 07/02/2023 lab* glucose 118 mg/dL 70-99 high Not Available Not A vailable 08/14/2023 12:48:25 07/02/19 24 07/02/2023 lab* eGFR 100 mL/mi n/1.7 3 >59 Not Available Not Available 08/14/2023 12:48:25 07/02/19 24 07/02/2023 lab* creatinine 0.82 mg/dL 0.75-1 .27 Not Available Not Available 08/14/2023 12:48:25 07/02/19 24 07/02/2023 lab* BUN/creatini ne ratio 10 10-24 Not Available Not Available 12:48:25 07/02/19 24 07/02/2023 lab* sodium 132 mmol/ L 134-14 4 low Not Available Not Available 08/14/2023 12:48:25 07/02/19 24 07/02/2023 lab* potassium 4.4 mmol/ L 3.5-5. 2 Not Available Not Available 08/14/2023 12:48:25 07/02/19 24 07/02/2023 lab* chloride 93 mmol/ L 96-106 low Not Available Not Available 08/14/2023 12:48:25 07/02/19 24 07/02/2023 lab* carbon dioxide total 24 mmol/ L 20- Not Available Not Available 08/14/2023 12:48:25 01/29/07/02/2023 lab* calium 9.2 mg/dL 8.5-10 .2 Not Available Not Available 08/14/2023 12:48:25 07/02/19 24 07/02/2023 lab* protein total 6.4 mg/dL 6.0-8. 5 Not Available Not Available 08/14/2023 12:48:25 07/02/19 24 07/02/2023 lab* albumin 4.5 g/dL 3.8-4. 8 Not Available Not Available 08/14/2023 12:48:25 07/02/19 24 07/02/2023 lab* globulin 1.9 g/dL 1.5-4. 5 Not Available Not Available 08/14/2023 12:48:25 07/02/19 24 07/02/2023 lab* A/G ratio 2.4 1.2-2. 2 high Not Available Not Available 08/14/2023 12:48:25 07/02/19 24 07/02/2023 lab* billirubin total 0.7 mg/dL 0.0-1. 2 Not Available Not Available 08/14/2023 12:48:25 07/02/19 24 07/02/2023 lab* alkaline phosphatase 42 IU/L 44-121 low Not Available Not Available 08/14/2023 12:48:25 07/02/19 24 07/02/2023 lab* AST 30 IU/L 0-40 Not Available Not Av ailable 08/14/2023 12:48:25 07/02/19 24 07/02/2023 lab* ALT 21 id/L 0-44 Not Available Not Av ailable 08/14/2023 12:48:25 07/02/19 24 07/02/2023 lab* cholesterol total 229 mg/dL 100-18 9 high Not Available Not Available 08/14/2023 12:48:25 07/02/19 24 07/02/2023 lab* triglyceride s 96 mg/dL 0-149 Not Available Not Available 12:48:25 07/02/19 24 07/02/2023 lab* HDL 87 mg/dL >39 Not Available Not Av ailable 08/14/2023 12:48:25 07/02/19 24 07/02/2023 lab* VLDL 16 mg/dL 6-40 Not Available Not Av ailable 08/14/2023 12:48:25 07/02/19 24 07/02/2023 lab* LDL 126 mg/dL 0-99 high Not Available Not Av ailable 08/14/2023 12:48:25 07/02/19 24 07/02/2023 lab* T. chol/HDL ratio 2.6 0-5 Not Available Not Available 12:48:25 07/13/19 24 07/13/2023 COMPL ETE BLOOD COUNT W/DIF F WBC 6.25 10_3/ uL 4.4-10 .8 normal Not Available [address] [place], [address] 07/13/2023 16:15:23 07/13/19 24 07/13/2023 COMPL ETE BLOOD COUNT W/DIF F RBC 4.70 10_6/ uL 4.36-5 .78 normal Not Available [address] [place], [address] 07/13/2023 16:15:23 07/13/19 24 07/13/2023 COMPL ETE BLOOD COUNT W/DIF F HGB 14.9 g/dL 13.5-1 7.5 normal Not Available [address] [place], [address] 07/13/2023 16:15:23 07/13/19 24 07/13/2023 COMPL ETE BLOOD COUNT W/DIF F HCT 42.8 % 40.0-5 0.0 normal Not Available [address] [place], [address] 07/13/2023 16:15:23 07/13/19 24 07/13/2023 COMPL ETE BLOOD COUNT W/DIF F MCV 91 fL 80-95 normal Not Available [address] [place], [address] 07/13/2023 16:15:23 07/13/19 24 07/13/2023 COMPL ETE BLOOD COUNT W/DIF F MCH 31.7 pg 27.0-3 3.0 normal Not Available [address] [place], [address] 07/13/2023 16:15:23 07/13/19 24 07/13/2023 COMPL ETE BLOOD COUNT W/DIF F MCHC 34.8 % 32.0-3 6.0 normal Not Available [address] [place], [address] 07/13/2023 16:15:23 07/13/19 24 07/13/2023 COMPL ETE BLOOD COUNT W/DIF F RDW 12.4 % 11.8-1 4.1 normal Not Available [address] [place], [address] 07/13/2023 16:15:23 07/13/19 24 07/13/2023 COMPL ETE BLOOD COUNT W/DIF F platelet count 230 10_3/ uL 130-40 0 normal Not Available [address] [place], [address] 07/13/2023 16:15:23 07/13/19 24 07/13/2023 COMPL ETE BLOOD COUNT W/DIF F MPV 9.2 fL 8.0-11 .0 normal Not Available [address] [place], [address] 07/13/2023 16:15:23 07/13/19 24 07/13/2023 COMPL ETE BLOOD COUNT W/DIF F neutrophils % 52.7 Not Available [address] [place], [address] 07/13/2023 16:15:23 07/13/19 24 07/13/2023 COMPL ETE BLOOD COUNT W/DIF F lymphocytes % 30.1 Not Available [address] [place], [address] 07/13/2023 16:15:23 07/13/19 24 07/13/2023 COMPL ETE BLOOD COUNT W/DIF F monocytes % 13.3 Not Available Ashley estrada[address] [place], [address] 07/13/2023 16:15:23 07/13/19 24 07/13/2023 COMPL ETE BLOOD COUNT W/DIF F eosinophils % 2.2 Not Available [address] [place], [address] 07/13/2023 16:15:23 07/13/19 24 07/13/2023 COMPL ETE BLOOD COUNT W/DIF F basophils % 1.1 Not Available Ashley lauren [address] [place], [address] 07/13/2023 16:15:23 07/13/19 24 07/13/2023 COMPL ETE BLOOD COUNT W/DIF F immature grans % 0.6 Not Available [address] [place], [address] 07/13/2023 16:15:23 07/13/19 24 07/13/2023 COMPL ETE BLOOD COUNT W/DIF F nucleated RBC 0.0 % 0.0-0. 3 normal Not Available [address] [place], [address] 07/13/2023 16:15:23 07/13/19 24 07/13/2023 COMPL ETE BLOOD COUNT W/DIF F absolute neutrophil count 3.29 10_3/ uL 1.2-6. 7 normal Not Available [address] [place], [address] 07/13/2023 16:15:23 07/13/19 24 07/13/2023 COMPL ETE BLOOD COUNT W/DIF F absolute lymphocyte count 1.88 10_3/ uL 1.2-3. 4 normal Not Available [address] [place], [address] 07/13/2023 16:15:23 07/13/19 24 07/13/2023 COMPL ETE BLOOD COUNT W/DIF F absolute monocyte count 0.83 10_3/ uL 0.1-0. 8 high Not Available [address] [place], [address] 07/13/2023 16:15:23 07/13/19 24 07/13/2023 COMPL ETE BLOOD COUNT W/DIF F absolute eosinophil count 0.14 10_3/ uL 0.0-0. 7 normal Not Available [address] [place], [address] 07/13/2023 16:15:23 02/09/20 24 07/13/2023 COMPL ETE BLOOD COUNT W/DIF F absolute basophil count 0.07 10_3/ uL 0.0-0. 2 normal Not Available [address] [place], [address] 07/13/2023 16:15:23 07/13/19 24 07/13/2023 BASIC METAB OLIC PANEL calcium 9.7 mg/dL 8.5-10 .1 normal Not Available [facility] (Registration ) [address] [place] [address] [place], [address], 07/13/2023 16:19:29 07/13/19 24 07/13/2023 BASIC METAB OLIC PANEL glucose 105 mg/dL 74-106 normal Not Available [facility] (Registration ) [address] [place] [address] [place], [address], 07/13/2023 16:19:29 07/13/19 24 07/13/2023 BASIC METAB OLIC PANEL BUN 8 mg/dL 7-18 normal Not Available [facility] (Registration ) [address] [place] [address] [place], [address], 07/13/2023 16:19:29 07/13/19 24 07/13/2023 BASIC METAB OLIC PANEL creatinine 0.9 mg/dL 0.70-1 .30 normal Not Available [facility] (Registration ) [address] [place] [address] [place], [address], 07/13/2023 16:19:29 07/13/19 24 07/13/2023 BASIC METAB OLIC PANEL estimated GFR 96.57 mL/min /1.73m 2 Not Available [facility] (Registration ) [address] [place] [address] [place], [address], 07/13/2023 16:19:29 07/13/19 24 07/13/2023 BASIC METAB OLIC PANEL sodium 134 mmol/ L 136-14 5 low Not Available [facility] (Registration ) [address] [place] [address] [place], [address], 07/13/2023 16:19:29 07/13/19 24 07/13/2023 BASIC METAB OLIC PANEL potassium 4.8 mmol/ L 3.5-5. 1 normal Not Available [facility] (Registration ) [address] [place] [address] [place], [address], 07/13/2023 16:19:29 07/13/19 24 07/13/2023 BASIC METAB OLIC PANEL chloride 94 mmol/ L 98-107 low Not Available [facility] (Registration ) [address] [place] [address] [place], [address], 07/13/2023 16:19:29 07/13/19 24 07/13/2023 BASIC METAB OLIC PANEL CO2 29.1 mmol/ L 21.0-3 2.0 normal Not Available [facility] (Registration ) [address] [place] [address] [place], [address], 07/13/2023 16:19:29 07/13/19 24 07/13/2023 BASIC METAB OLIC PANEL anion gap 10.9 mmol/ L 3-11 normal Not Available [facility] (Registration ) [address] [place] [address] [place], [address], 07/13/2023 16:19:29 08/13/19 24 08/13/2023 URIC ACID uric acid 5.5 mg/dL 3.5-7. 2 normal Not Available [address] [place], [address] 08/13/2023 21:07:34 08/13/19 24 08/13/2023 LIPID 2 cholesterol 251 mg/dL <200 high Not Available [facility] (Registration ) [address] [place] [address] [place], [address], 08/13/2023 21:07:34 08/13/19 24 08/13/2023 LIPID 2 triglyceride 53 mg/dL <150 Not Available [facility] (Registration ) [address] [place] [address] [place], [address], 08/13/2023 21:07:34 08/13/19 24 08/13/2023 LIPID 2 HDL cholesterol 93 mg/dL 40-60 Not Available [facility] (Registration ) [address] [place] [address] [place], [address], 08/13/2023 21:07:34 08/13/19 24 08/13/2023 LIPID 2 calculated LDL 148 mg/dL <100 high Not Available [facility] (Registration ) [address] [place] [address] [place], [address], 08/13/2023 21:07:34 08/13/19 24 08/13/2023 VITAM IN B12 vitamin B12 > 2000 pg/mL 193-98 6 high Not Available [facility] (Registration ) [address] [place] [address] [place], [address], 08/13/2023 21:07:34 08/13/19 24 08/14/2023 HEPAT ITIS C AB W RFLX HCV PCR hepatitis C Ab W rflx HCV PCR Negati ve negati ve Not Available [facility] (Registration ) [address] [place] [address] [place], [address], 08/15/2023 09:44:49 08/13/19 24 08/14/2023 HIV-1 /2 AG AB SCREE N HIV-1/2 Ag Ab screen Negati ve negati ve Not Available [facility] (Registration ) [address] [place] [address] [place], [address], 08/15/2023 09:44:49 08/24/19 24 08/24/2023 HEMOG LOBIN A1C hemoglobin A1C 5.7 % <5.7 Not Available [facility] (Registration ) [address] [place] [address] [place], [address], 08/24/2023 16:29:47 08/24/19 24 08/31/2023 TESTO STERO NE, TOTAL FREE testosterone , free 12.6 NG/dL 3.67-1 3.9 Not Available [address] [place], [address] 08/31/2023 16:48:15 08/24/19 24 08/31/2023 TESTO STERO NE, TOTAL FREE testosterone , total 430 NG/dL 240-95 0 Not Available [address] [place], [address] 08/31/2023 16:48:15 11/14/19 24 11/14/2023 LIPID 2 cholesterol 182 mg/dL <200 Not Available [facility] (Registration ) [address] [place] [address] [place], [address], 11/14/2023 15:55:24 11/14/19 24 11/14/2023 LIPID 2 triglyceride 66 mg/dL <150 Not Available [facility] (Registration ) [address] [place] [address] [place], [address], 11/14/2023 15:55:24 11/14/19 24 11/14/2023 LIPID 2 HDL cholesterol 102 mg/dL 40-60 Not Available [facility] (Registration ) [address] [place] [address] [place], [address], 11/14/2023 15:55:24 11/14/19 24 11/14/2023 LIPID 2 calculated LDL 67 mg/dL <100 Not Available [facility] (Registration ) [address] [place] [address] [place], [address], 11/14/2023 15:55:24 11/14/19 24 11/14/2023 VITAM IN B12 vitamin B12 1573 pg/mL 193-98 6 high Not Available [facility] (Registration ) [address] [place] [address] [place], [address], 11/14/2023 15:55:25 07/12/19 24 07/13/2023 elect rocar diogr am No observ ation record ed. [facility] [address], [facility] [place], [address], 07/13/2023 16:27:17 07/13/19 24 elect rocar diogr am No observ ation record ed. Not Available 07/13/2023 11:58:40 Result Notes None recorded. Problems Name Status Onset Date Resolution Date Notes Provider Name and Address Organization Details Recorded Time Cervical radiculopathy Active 2023 s/p decompression 07/[address], [place], [address], [facility] 4 11:21:14 Lumbar radiculopathy Completed 202308/13/2023 Removal Reason: resolved with surgery MD Keyla [address], [place], [address], [facility] 4 11:37:20 Essential hypertension Active [address], [place], [address], [facility] 4 17:42:56 Chronic neck pain Completed 202308/13/[address], [place], [address], [facility] 4 12:15:27 Chronic hyponatremia Active 2023 133 in [address], [place], [address], [facility] 4 17:45:53 Hyperlipidemi a Active [address], [place], [address], [facility] 4 07:42:47 Overweight Active [address], [place], [address], [facility] 4 07:42:58 Transient cerebral ischemia Active 07/[address], [place], [address], [facility] 4 10:32:59 Spinal stenosis of lumbar region Completed 202308/13/[address], [place], [address], [facility] 4 11:42:38 Osteonecrosis of head of femur Completed 201808/13/2023 s/p bilateral replacement MD [address], [place], [address], [facility] 4 11:18:19 Pain of left knee region Active [address], [place], [address], [facility] 4 11:44:36 Carpal tunnel syndrome Active 2023 by recent EMG studies still residual, despite surgery in [address], [place], [address], [facility] 4 11:20:52 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 MD [address], [place], [address], [facility] 4 07:51:12 Mild intermittent asthma Active 2023 PFT with mild obstruction, no change post bronchodilator MD Ke[address], [place], [address], [facility] 4 07:47:07 Gout Active [address], [place], [address], [facility] 4 07:47:14 Anemia Completed 202308/11/[address], [place], [address], [facility] 4 16:11:58 Cobalamin deficiency Active 2023 B12 injections MD Keyla [address], [place], [address], [facility] 4 07:51:23 Posttraumatic stress disorder Active [address], [place], [address], [facility] 4 10:30:48 Gastroesophag eal reflux disease Active [address], [place], [address], [facility] 4 10:37:28 Chronic obstructive pulmonary disease Active [address], [place], [address], [facility] 4 11:39:17 History of Malignant melanoma Active [address] Don q6 months. 1 mm Breslow depth, July 2011 diagnosed in [place], right inferior axillary vault area, with a negative sentinel lymph node biopsy MD Keyla [address], [place], [address], [facility] 4 12:17:10 Problem Notes None recorded. Procedures Surgical History Date Name Laterality Status Provider Name and Address Organization Details Recorded Time 07/26/19 24 excision of cervical intervertebral disc completed MD Keyla [address], [place], [address], [facility] 08/13/2023 10:57:34 08/22/19 23 laminectomy completed MD Keyla [address], [place], [address], [facility] 08/13/2023 10:30:23 05/07/20 19 total replacement of hip completed MD Keyla [address], [place], [address], [facility] 08/13/2023 11:18:00 06/04/19 17 excision of distal clavicle completed MD Keyla [address], [facility] [address], [facility] 08/13/2023 10:35:53 08/03/19 06 Carpal tunnel surgery completed MD Keyla [address], [facility] [address], [facility] 08/13/2023 11:19:28 08/03/18 93 decompression of ulnar nerve completed MD Keyla [address], [facility] [id number] [place] [address] 08/13/2023 11:20:05 06/04/18 92 complete repair of rotator cuff completed MD Keyla [address], [facility] [id number] [place] [address] 08/13/2023 10:36:57 06/04/18 91 lumbar spinal fusion completed MD Keyla [address], [facility] [id number] [place] [address] 08/13/2023 10:33:59 06/04/18 84 repair of right inguinal hernia completed MD Keyla [address], [facility] [address], [facility] 08/13/2023 10:34:37 tonsillectomy completed MD Keyla [address], [facility] [address], [facility] 08/13/2023 10:33:11 excision of melanoma completed MD Keyla [address], [place], [address], [facility] 08/13/2023 10:38:24 Imaging Results Imaging Date Name Status LastModified by Organization Details LastModified Time 07/13/2023 electrocardiogram completed [facility] [address], [place], [address], 07/13/2023 16:27:17 07/13/2023 electrocardiogram completed Informa tion not available 07/13/2023 11:58:40 Procedure Notes None recorded. Medical Equipment None [...] Available Not Available Vitals Date Recorded Body weight Body temperature Oxygen saturation Oxygen saturation in Arterial blood by Pulse oximetry Respiratory rate Heart rate Systolic blood pressure Diastolic blood pressure Provider Name and Address Organization Details Last Updated DateTime 4 [address].8 1 g 97.8 [degF] 96 % 96 % 16 /min 74 /min 140 mm[Hg] 86 mm[Hg] [facility]CA KRUGER [facility] 4 10:50:12 Date Recorded Body mass index (BMI) Body height Provider Name and Address Organization Details Last Updated DateTime 08/13/2023 26.1 kg/m2 177.8 cm LIZETT BELLE MD [address], [place], [address] 08/13/2023 11:45:06 Date Recorded Body height Body mass index (BMI) Body weight Body temperature Heart rate Respiratory rate Systolic blood pressure Diastolic blood pressure Provider Name and Address Organization Details Last Updated DateTime 4 177.8 cm 26.5 kg/m2 83398.5 9 g 98 [degF] 76 /min 16 /min 132 mm[Hg] 90 mm[Hg] BIANCA KRUGER LPN [facility] 4 08:53:59 Social History Question Answer Notes LastModified by Organizat ion Details LastModified Time Tobacco Smoking Status Never Smoker BIANCA KRUGER LPN null, [facility] 08/13/2023 10:48:49 Would You Say [...] Time zoster recombinant 08/24/2023 completed ISIS Dutton, [facility] 08/24/2023 08:47:24 Tdap 11/04/2010 completed LILIYA LARRY, [facility] 11/14/2023 09:01:36 Td (adult), 2 Lf tetanus toxoid, preservative free, adsorbed 12/15/2020 LILIYA Crain, [facility] 11/14/2023 09:02:00 zoster recombinant 12/15/2020 completed LILIYA CASTAÑEDA, [facility] 11/14/2023 09:02:30 Pneumococcal conjugate PCV 13 06/09/2015 LILIYA Crain, [facility] 11/14/2023 09:03:48 pneumococcal polysaccharide PPV23 07/29/2010 LILIYA Crain [facility] 11/14/2023 09:04:19 Past Encounters Encounter ID Performer Location Encounter Start Date Encounter Closed Date Diagnosis/Indication Diagnosis SNOMED-CT Code [id number] Jess Garrett RN [facility] [address] [place] [address] 07/13/2023 10:55:55 07/13/2023 11:23:39 Pre-surgery evaluation [id number] LIZETT BELLE MD [facility] Jason Martinez [facility] [place] [address] 08/13/2023 10:41:47 08/13/2023 12:05:11 Essential hypertension 36752627 Gout 56792932 Cobalamin deficiency 190 035679 Hyperlipidemia 70476534 Diabetes m ellitus screening 322262474 HIV screening 947495272 Abnormal testosterone 13 0243698 Chronic ob structive pulmonary disease 02940307 Gastroesop hageal reflux disease 711726046 Cervical radiculopathy 85789064 Posttrauma tic stress disorder 82335436 History of Malignant melanoma 840717313 Overweight 852445233 [id number] Jess Garrett RN [facility] [address] [place] [address] 08/24/2023 08:21:26 08/24/2023 08:40:43 Active or passive immunization 903344982 Abnormal testosterone 13 3481788 Diabetes m ellitus screening 340659605 [id number] LIZETT BELLE MD [address] [place] [address] 11/14/2023 08:45:10 11/14/2023 09:38:41 Overweight 470459054 Screening for malignant neoplasm of colon 461538034 Cobalamin deficiency 190 687045 Hyperlipidemia 55580904 Essential hypertension 89905136 Gout 19044229 [id number] Jess Garrett RN [address] [place] [address] 12/25/2023 14:26:47 12/25/2023 14:32:11 Localized eruption of skin 040617513 Health Concerns Section Related Observation LastModified by Organization Detai ls LastModified Time None Recorded Concern Status LastModified by Organization Details LastModified Time None Recorded Advance Directives Directive None Recorded Payers Encounter Date Sequence Insurance Name Policy Number Policy Brooks Covered Member ID Brooks Member ID Guarantor Name 07/13/2023 1 [facility] [id number] Grayson Dodd III [id number] Grayson Dodd 07/13/2023 2 [place] [facility] Valorie Dodd [id number] Grayson Dodd 08/13/2023 1 [facility] [id number] Grayson Dodd III [id number] 1 Grayson Dodd 08/13/2023 2 [place] [facility] Valorie Dodd [id number] Grayson Dodd 08/24/2023 1 [facility] [id number] Grayson Dodd III [id number] Grayson Dodd 08/24/2023 2 [place] [facility] Valorie Dodd [id number] Grayson Dodd 11/14/2023 1 [facility] [id number] Grayson Dodd III [id number] Grayson Dodd 11/14/2023 2 [place] [facility] Valorie Dodd [id number] Grayson Dodd 12/25/2023 1 [facility]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
--- OUTSIDE RECORDS SUMMARY | 2023-12-25 18:46 | XMS_ITS | Continuity of Care Document ---
Author Organization [facility], [facility] Address [address] [place] [address] Care Team Providers Care Supervisor Varnish Name Role Phone ESTER DON Bean Dumper CHINMAY SHAVER Occupational Medicine EVELYN FLORES Neurosurgeon Assessment No assessment recorded. Plan of Treatment Reminders Order Date Submit Date Provider Last Modified By Organization Details Last Modified Time Details Appointments Nurse Visit 20 2023 02:30P M [facility] Nursing Staff Not available Not available Not available Annual Wellness Exam 40 2023 09:00A M Lizett Caballero Not available Not available Not available Lab CBC w/ diff - please send copy to Dr. Don 2023 024 [facility] (Registration ), [address] [place] [address] , [place], [address], 12/25/2023 14:40:43 Referral None recorded . Procedures None recorded . Surgeries None recorded . Imaging None recorded . Medication Orders None recorded . Patient TargetsNo targets recorded. Patient InstructionsNo instructions recorded. Reason for Referral None Reported. Problems Name Status Onset Date Resolution Date Notes Provider Name and Address Organization Details Recorded Time Cervical radiculopathy Active 2023 s/p decompression 07/2023 LIZETT CABALLERO MD [address], [place], [address] [place] [address] 11:21:14 Lumbar radiculopathy Completed 202308/13/2023 Removal Reason: resolved with surgery MD [address], [place], [address], [facility] 4 11:37:20 Essential hypertension Active [address], [place], [address], [facility] 4 17:42:56 Chronic neck pain Completed 202308/13/[address], [place], [address], [facility] 4 12:15:27 Chronic hyponatremia Active 2023 133 in [address], [place], [address], [facility] 4 17:45:53 Hyperlipidemi a Active [address], [place], [address], [facility] 4 07:42:47 Overweight Active [address], [place], [address], [facility] 4 07:42:58 Transient cerebral ischemia Active 07/[address], [place], [address], [facility]. 4 10:32:59 Spinal stenosis of lumbar region Completed 202308/13/[address], [place], [address], [facility] 4 11:42:38 Osteonecrosis of head of femur Completed 201808/13/2023 s/p bilateral replacement MD [address], [place], [address], [facility] 4 11:18:19 Pain of left knee region Active [address], [place], [address], [facility] 4 11:44:36 Carpal tunnel syndrome Active 2023 by recent EMG studies still residual, despite surgery in [address], [place], [address], [facility] 4 11:20:52 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 MD [address], [place], [address], [facility] 4 07:51:12 Mild intermittent asthma Active 2023 PFT with mild obstruction, no change post bronchodilator MD [address], [place], [address], [facility] 4 07:47:07 Gout Active [address], [place], [address], [facility] 4 07:47:14 Anemia Completed 202308/11/[address], [place], [address], [facility] 4 16:11:58 Cobalamin deficiency Active 2023 B12 injections MD [address], [place], [address], [facility] 4 07:51:23 Posttraumatic stress disorder Active [address], [place], [address], [facility] 4 10:30:48 Gastroesophag eal reflux disease Active [address], [place], [address], [facility] 4 10:37:28 Chronic obstructive pulmonary disease Active [address], [place], [address], [facility] 4 11:39:17 History of Malignant melanoma Active [address] Don q6 months. 1 mm Breslow depth, July 2011 diagnosed in [place], right inferior axillary vault area, with a negative sentinel lymph node biopsy MD [address], [place], [address], [facility] 4 12:17:10 Problem Notes None recorded. Procedures Surgical History Date Name Laterality Status Provider Name and Address Organization Details Recorded Time 07/26/19 24 excision of cervical intervertebral disc completed MD [address], [place], [address], [facility] 08/13/2023 10:57:34 08/22/19 23 laminectomy completed MD [address], [place], [address], [facility] 08/13/2023 10:30:23 05/07/20 19 total replacement of hip completed MD [address], [place], [address], [facility] 08/13/2023 11:18:00 06/04/19 17 excision of distal clavicle completed MD [address], [place], [address], [facility] 08/13/2023 10:35:53 08/03/19 06 Carpal tunnel surgery completed MD [address], [facility] [address], [facility] 08/13/2023 11:19:28 08/03/18 93 decompression of ulnar nerve completed MD [address], [facility] [address] [place] [address] 08/13/2023 11:20:05 06/04/18 92 complete repair of rotator cuff completed MD [address], [facility] [address], [facility] 08/13/2023 10:36:57 06/04/18 91 lumbar spinal fusion completed MD [address], [facility] [address] [address] 08/13/2023 10:33:59 06/04/18 84 repair of right inguinal hernia completed MD [address], [facility] [address] [place] [address] 08/13/2023 10:34:37 tonsillectomy completed MD [address], [facility] [address] [place] [address] 08/13/2023 10:33:11 excision of melanoma completed MD [address], [facility] [address] 08/13/2023 10:38:24 Imaging Results None recorded. Procedure [...] Not Available Not Available Not Available Vitals None Recorded Social History Question Answer Notes LastModified by Organizat ion Details LastModified Time Tobacco Smoking Status Never Smoker BIANCA KRUGER LPN null, [place] [facility]. 08/13/2023 10:48:49 Would You Say That, In [...] Organization Details Recorded Time zoster recombinant 08/24/2023 ISIS Ortiz, [facility], [facility] 08/24/2023 08:47:24 Tdap 11/04/2010 completed LILIYA LARRY, [facility], [facility] 11/14/2023 09:01:36 Td (adult), 2 Lf tetanus toxoid, preservative free, adsorbed 12/15/2020 completed LILIYA LARRY, [facility], [facility] 11/14/2023 09:02:00 zoster recombinant 12/15/2020 completed LILIYA CASTAÑEDA, [facility], [facility] 11/14/2023 09:02:30 Pneumococcal conjugate PCV 13 06/09/2015 completed LILIYA LARRY, [facility], [facility] 11/14/2023 09:03:48 pneumococcal polysaccharide PPV23 07/29/2010 LILIYA Crain, [facility] 11/14/2023 09:04:19 Past Encounters Encounter ID Performer Location Encounter Start Date Encounter Closed Date Diagnosis/Indication Diagnosis SNOMED-CT Code [id number] Jess Garrett RN [address] [place] [address] 12/25/2023 14:26:47 12/25/2023 14:32:11 Localized eruption of skin 941040462 Health Concerns Section Related Observation LastModified by Organization Detai ls LastModified Time None Recorded Concern Status LastModified by Organization Details LastModified Time None Recorded Payers Encounter Date Sequence Insurance Name Policy Number Policy Brooks Covered Member ID Brooks Member ID Guarantor Name 12/25/2023 1 [facility] [id number] Grayson Dodd III [id number] Grayson Dodd 12/25/2023 2 [place] [facility] Valorie Dodd [id number] Grayson Dodd
--- OUTSIDE RECORDS SUMMARY | 2023-12-25 18:47 | XMS_ITS | Encounter Summary ---
[place] [address] Care Team Providers Care Manager Military Name Role Phone Didier Romero MD Primary Care Provider + Encounter Details Date Type Department Care Team (Late st Contact Info) Description 11/04/2021 Telephone [facility] [place] [phone] Dominique Leal RN Social History Tobacco Use Types Packs/Day Years Used Date Smoking Tobacco: Never Smokeless Tobacco: Never Alcohol Use Standard Drinks/Week Comments Yes 0 (1 standard drink = 0.6 oz pur e alcohol) 4-5 cans of beer a day Sex and Gender Information Value Date Recorded Sex Assigned at Not on file Gender Identity Not on file Sexual Orientation Not on file documented as of this encounter Miscellaneous Notes * Telephone Encounter - Dominique Leal RN - 11/04/2021 9:27 AM EDT Contact made with patient or field representative as identified in contacts 1. Patient instructed to arrive at 0730 on 11/07/21 with their xm1 tank driver for their CRFA procedure. Please plan to spend about 2 hours at the center. (3 hours for RFA) 2. Has pt started any new medications or supplements in the past two weeks? No 3. Have any of the following occurred within the two weeks before the procedure date? a. Patient is having a Covid vaccine or other vaccine No b. Patient has been exposed to anybody with a contagious illness such as Covid, flu, No c. Patient is taking antibiotics to treat an infection No d. Patient has any skin rashes, breakdown, blisters or open wounds No e. Patient has had any hospitalizations, ED visits, surgery, other procedure, dental procedure No f. Patient has taken oral steroids or had a steroid injection No g. Does patient have any of the following symptoms that are NEW and NOT explained by another healthcondition: fever or chills, cough, shortness of breath or difficulty breathing, fatigue, muscle or body aches, headache, new loss of taste or smell, sore throat, congestion or runny nose, nausea or vo miting, diarrhea. No If yes, the patient has been directed to the [employer] hotline for testing prior to their procedure. (route telephone note to: [facility] covid 19 nurse triage with routing comment stating pt needs covid test prior to procedure and give date of procedure, add name and MRN to tracking tool). h. Has the patient's pain resolved or significantly improved such as a rating of 3/10 or less? No 4. Was patient instructed to stop any medications? No if yes: a. Name of medication(s): b. Confirm date of last dose: 5. Is patient having a nerve block: No a. If yes instructed to not take any pain medication for 12 hours before your procedure. 6. Patient instructed to take any prescribed medications that they were not told to stop, especially blood pressure medication, because their procedure may be cancelled if their blood pressure is toohigh. 7. Was patient instructed to follow NPO guidelines: Yes if yes, the following instructions were reviewed: a. You may eat up to 6 hours before your procedure b. You may have clear liquids only up to 2 hours before your procedure: water, apple juice, edwina lorenzo, sprite, popsicles, broth, tea or coffee plain or with sweetener, absolutely no dairy products, no milk including soy, oat, almond. 8. IF RFA: Does patient have a pacemaker? No a. If yes, document that cardiology was called and notified. 9. Additional notes if applicable: Patient expressed understanding and agreement with instructions Yes Patient denies further questions Yes documented in this encounter Plan of Treatment Upcoming Encounters Date Type Department Care Team (Late st Contact Info) Description 01/03/2024 8:15 AM EDT Office Visit Dermatology at [place] [address] [place] [address] Jake Galvez MD [address] [address] documented as of this encounter Visit Diagnoses Not on filedocumented in this encounter Care Teams Manager Military Relationship Specialty Start Date End Date Didier Romero MD [address] [place] [address] PCP - General Family Medicine 01/11/17 documented as of this encounter
--- OUTSIDE RECORDS SUMMARY | 2023-12-25 18:47 | XMS_ITS | Encounter Summary ---
[place] [address] Care Team Providers Care Education Nurse Name Role Phone Didier Romero MD Primary Care Provider + Encounter Details Date Type Department Care Team (Late st Contact Info) Description 12/29/2021 11:30 AM EDT Office Visit Dermatology at [address] [address] Jake Galvez MD [address] [place] [address] [place] (actinic keratosis); History of SCC (squamous cell carcinoma) of skin; History of malignant melanoma Social History Tobacco Use Types Packs/Day Years [...] on file documented as of this encounter Progress Notes * Jake Galvez MD - 12/29/2021 11:30 AM EDT Problem: 1.?6-month skin checkup 2. 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 He has been doing well. He has not noted any particular lesions of concern. Physical examination reveals a pleasant 61-year-old gentleman who has a benign examination of the head and the neck the chest the back the hands arms forearms thighs and calves. There is no evidence of any recurrent pigmentation at the melanoma excision site and is no evidence of recurrent tumors at the prior above-noted treatment sites. Examination of the head and the neck the chest the back thehands are formed thighs and calves is benign. He has type II Curry pigmentation is very fair skin with fair hair and blue eyes. He has 3 actinic keratoses present on the right ear along the superior helical rim. Assessment and plan: Actinic keratosis 1. LN 2 x 2 applied each of 3 sites on right helical rim 2. Return to clinic in another 6 months for recheck 3. If doing well at that time may be able to space out to once yearly visits. History of malignant melanoma and of nonmelanoma cutaneous malignancies 1. No evidence of recurrence at previously treated sites CC: Didier Romero MD documented in this encounter Plan of Treatment Upcoming Encounters Date Type Department Care Team (Late st Contact Info) Description 01/03/2024 8:15 AM EDT Office Visit Dermatology at [place] [address] [place] [address] Jake Galvez MD [address] [facility] [place] [address] documented as of this encounter Visit Diagnoses Diagnosis AK (actinic keratosis) Actinic keratosis History of SCC (squamous cell carcinoma) of skin Personal history of other malignant neoplasm of skin History of malignant melanoma Personal history of malignant melanoma of skin documented in this encounter Care Teams Education Nurse Relationship Specialty Start Date End Date Didier Romero MD [address] [place] [address] PCP - General Family Medicine 01/11/17 documented as of this encounter
--- OUTSIDE RECORDS SUMMARY | 2023-12-25 18:47 | XMS_ITS | Encounter Summary ---
Author Organization [facility] [place] [address] Care Team Providers Care Gas Flow Regulator Name Role Phone Didier Romero MD Primary Care Provider + Reason for Visit * Auth/Cert Specialty Diagnoses / Procedures Referred By Contac t Referred To Contact Diagnoses Cervical spondylosis Cervical spondylosis Procedures PRO DSTR PARAVERTEBRAL FCT JNT NRVES CERVICAL OR THORACIC ADDL PRO DSTR PARAVERTEBRAL FCT JNT NRVES CERVICAL OR THORACIC SINGLE DESTRUCT BY LYTIC AGENT, FACET NERVE(S), W/IMAGING; CX OR THX, EA ADD (WRVU 1.32) DESTRUCT BY LYTIC AGNT, FACET JT NERVE(S), W/IMAGING; CX OR THX, SNGL (WRVU 3.84) Referral ID Status Reason Start Date Expiration Date Visits Re quested Visits Authorized [id number] 1 1 Encounter Details Date Type Department Care Team (Late st Contact Info) Description 08/03/2021 8:00 AM EST Ancillary [place] [address] Emerson Chand MD [facility] [place] [address] Social History Tobacco Use Types Packs/Day Years [...] on file documented as of this encounter Plan of Treatment Upcoming Encounters Date Type Department Care Team (Late st Contact Info) Description 01/03/2024 8:15 AM EDT Office Visit Dermatology at [place] [address] [place] [address] Jake Galvez MD [address] [place] [address] documented as of this encounter Procedures Procedure Name Priority Date/Time Associated Diagnosis Comments FILM LIBRARY STORAGE ONLY PAIN CLINIC C ARM Routine 08/03/2021 2:07 PM EST documented in this encounter Results * Film Library- Storage Only pain Clinic C-Arm (08/03/2021 2:07 PM EST) Narrative [facility] - 08/03/2021 2:07 PM EST See PACS for result report. Emerson Chand MD IMG FILM LIBRARY ORD ERABLES [place], [place] documented in this encounter Visit Diagnoses Not on filedocumented in this encounter Care Teams Gas Flow Regulator Relationship Specialty Start Date End Date Didier Romero MD [address] [place] [address] PCP - General Family Medicine 01/11/17 documented as of this encounter
--- OUTSIDE RECORDS SUMMARY | 2023-12-25 18:47 | XMS_ITS | Encounter Summary ---
Author Organization [facility] [place] [address] Care Team Providers Care Art Coordinator Name Role Phone Didier Romero MD Primary Care Provider + Reason for Referral * Consultation (Routine) - Closed Specialty Diagnoses / Procedures Referred By Contac t Referred To Contact [facility] Diagnoses Left lumbar radiculopathy Spondylolisthesis at L5-S1 level Chandler Clark MD [facility] [place] [address] Emerson Chand MD [facility] [place] [address] Referral ID Status Reason Start Date Expiration Date V isits Requested Visits Authorized [id number] Closed Evaluate and Treat 05/03/2021 05/03/2022 3 3 Reason for Visit * Reason Comments Follow-up Encounter Details Date Type Department Care Team (Late st Contact Info) Description 05/03/2021 9:20 AM EST Office Visit [place] [address] Chandler Clark MD [facility] [place] [address] Left lumbar radiculopathy; Spondylolisthesis at L5-S1 level Social History Tobacco Use Types Packs/Day Years [...] on file documented as of this encounter Last Filed Vital Signs Vital Sign Reading Time Taken Comments Blood Pressure - - Pulse - - Temperature - - Respiratory Rate - - Oxygen Saturation - - Inhaled Oxygen Concentration - - Weight 88.9 kg (196 lb) 05/03/2021 9:39 AM EST Height 177.8 cm (5' 10) 05/03/2021 9:39 AM EST Body Mass Index 28.12 05/03/2021 9:39 AM EST documented in this encounter Progress Notes * Chandler Clark MD - 05/03/2021 9:20 AM EST Images from the original note were not included. [facility] Chandler Clark MD [place] Geoff Lanier MD [facility] [place] [address] Didier Romero MD [address] [place] [address] / [facility] [id number] Dear Colleagues, I had the pleasure of seeing this patient at the [facility] for surgical evaluation. At the pleasure of seeing this patient back in follow-up. CT was obtained which shows solid fusion of spondyloptosis. Looking at the MRI think the left sided S1 nerve root is perhaps under traction given the morphology of the spondyloptosis infusion. It does not appear to be compressed posteriorly at all. He is 50% back pain 50% leg pain. There is no foraminal stenosis L3-L4-L5. L3-4 is some lateral recess stenosis on MRI. I do not think the lateral recess stenosis is a significant contributor to his isolated left S1 radiculopathy. I spoke with Dr. Chand, concerning spinal cord stimulator. He agreed that it is an option. I have sent a referral to evaluate for spinal cord stimulation. The patient was in agreement. Plan: 1. Evaluation for spinal cord stimulator. Sincerely, Chandler Clark MD [place] [facility] Machine Cell Tuber - Orthopedic Spine Surgery Screw Supervisor - Department of Orthopedic Surgery / [employer] Upholstery Trimmer - [facility] 05/03/2021 Spine Center Response Trends Patient-reported scores: myD-H Spine Questionnaire responses 05/18/2020 Neck Disability Index (Range: 0-100) 36 (Moderate disability) PROMIS-10 Physical Health Score 42.3 PROMIS-10 Mental Health Score 43.5 documented in this encounter Plan of Treatment Upcoming Encounters Date Type Department Care Team (Late st Contact Info) Description 01/03/2024 8:15 AM EDT Office Visit Dermatology at [place] [address] [facility] [place] [address] Jake Galvez MD [address] [place] [address] Scheduled Referrals Name Type Priority Associated Diagnoses Orde r Schedule Referral to Pain and Spine Center (Internal only) Outpatient Referral Routine Left lumbar radiculopathy Spondylolisthesis at L5-S1 level Ordered: 05/03/2021 documented as of this encounter Visit Diagnoses Diagnosis Left lumbar radiculopathy Thoracic or lumbosacral neuritis or radiculitis, unspecified Spondylolisthesis at L5-S1 level Congenital spondylolisthesis documented in this encounter Care Teams Art Coordinator Relationship Specialty Start Date End Date Didier Romero MD [address] [place] [address] PCP - General Family Medicine 01/11/17 documented as of this encounter
--- OUTSIDE RECORDS SUMMARY | 2023-12-25 18:47 | XMS_ITS | Encounter Summary ---
[place] [address] Care Team Providers Care Cloth Mercerizer Back Tender Name Role Phone Didier Romero MD Primary Care Provider + Encounter Details Date Type Department Care Team (Latest Contact Info) Description 07/28/2022 Travel Social History Tobacco Use Types Packs/Day Years [...] 8:15 AM EDT Office Visit Dermatology at [address] [place] [phone] Jake Galvez MD [address] [place] [address] [place] [address] documented as of this encounter Visit Diagnoses Not on filedocumented in this encounter Care Teams Cloth Mercerizer Back Tender Relationship Specialty Start Date End Date Didier Romero MD [address] [place] [address] PCP - General Family Medicine 01/11/17 documented as of this encounter
--- OUTSIDE RECORDS SUMMARY | 2023-12-25 18:47 | XMS_ITS | Encounter Summary ---
[place] [address] Care Team Providers Care Foundation Digger Name Role Phone Didier Romero MD Primary Care Provider + Encounter Details Date Type Department Care Team (Late st Contact Info) Description 01/10/2022 5:00 PM EDT Ancillary Procedure [place] [address] Didier Romero MD [facility] [address] [place], [place] [id number] Social History Tobacco Use Types Packs/Day Years [...] 8:15 AM EDT Office Visit Dermatology at [place] [address] [place] [phone] Jake Galvez MD [address] [facility] [place] [address] documented as of this encounter Procedures Procedure Name Priority Date/Time Associated Diagnosis Comments FILM LIBRARY STORAGE ONLY MR SPINE Routine 01/10/2022 4:56 PM EDT documented in this encounter Results * Film Library- Storage Only MR Spine (01/10/2022 4:56 PM EDT) Narrative [facility] - 01/10/2022 4:56 PM EDT This exam is auto-finalizing. It's purpose is for storage only. Didier Romero MD IMG FILM LIBRARY ORDERABLES Performing Organization Address City/State/[facility] Co de Phone Number [place], [place] documented in this encounter Visit Diagnoses Not on filedocumented in this encounter Care Teams Foundation Digger Relationship Specialty Start Date End Date Didier Romero MD [facility] [place] [address] PCP - General Family Medicine 01/11/17 documented as of this encounter
--- OUTSIDE RECORDS SUMMARY | 2023-12-25 18:47 | XMS_ITS | Encounter Summary ---
Author Organization [facility] [place] [address] Care Team Providers Care Engine Hostler Name Role Phone Didier Romero MD Primary [...] Expiration Date Visits Re quested Visits Authorized [id number] 1 Encounter Details Date Type Department Care Team (Late st Contact Info) Description 08/03/2021 8:00 AM EST - 08/03/2021 8:45 AM EST [place] [phone] Emerson Chand MD [facility] [place] [address] DESTRUCT BY LYTIC AGENT, FACET NERVE(S), W/IMAGING; CX OR THX, EA ADD (WRVU 1.32) Social History Tobacco Use Types Packs/Day Years [...] Sign Reading Time Taken Comments Blood Pressure 174/118 08/03/2021 8:40 AM EST Pulse 77 08/03/2021 7:53 AM EST Temperature - - Respiratory Rate - - Oxygen Saturation 100% 08/03/2021 8:40 AM EST Inhaled Oxygen Concentration - - Weight 88.9 kg (196 lb) 08/03/2021 7:53 AM EST Height 177.8 cm (5' 10) 08/03/2021 7:53 AM EST Body Mass Index 28.12 08/03/2021 7:53 AM EST documented in this encounter Discharge Instructions * Discharge Instructions* Miah Whittaker - 08/03/2021 7:32 AM EST Pain Management Center Discharge Instructions: You were seen today by Surgeon(s): Emerson Chand MD Krause, Jeffrey A, MD The following was performed: Procedure(s) (LRB): DESTRUCT BY LYTIC AGENT, FACET NERVE(S), W/IMAGING; CX OR THX, EA ADD (WRVU 1.32) (Right) DESTRUCT BY LYTIC AGNT, FACET JT NERVE(S), W/IMAGING; CX OR THX, SNGL (WRVU 3.84) (Right) It is normal that the injection site will be sore for up to 48 hours. [x] You may also experience mild stiffness in the joint near the injection site. You may resume your normal activities: tomorrow. You may shower today. DO NOT tub bathe, use whirlpools, hot tubs or pool therapy for 2 days. RemoveBand-Aid(s) later today/tomorrow. Do not drive until tomorrow. Use caution walking/climbing stairs as you may be unsteady on your feet. You may use your usual medications, including pain medications, as directed, unless otherwise instructed. You may use an ice pack as needed for the first 24 hours, on for 20 minutes then off for 20 minutes. Do not apply heat today. Attempt to empty your bladder 4-6 hours after your procedure. [ ] If you have diabetes, monitor your blood sugars frequently. If your blood sugar increases and is of concern, contact your Primary Care Provider. You received the following medications: Medications Given During Procedure Date/Time Order Dose Route Action 08/03/2021 0838 dexamethasone (PF) (Decadron) (10 mg/mL) injection 10 mg Intra- articular Given 08/03/2021 0839 lidocaine (pf) (Xylocaine) (10 mg/mL) 1% injection 3 mL Intra- articular Given 08/03/2021 0905 lidocaine (pf) (Xylocaine) (20 mg/mL) 2% injection 4 mL Other Given During regular business hours, please phone the Pain Management Center at with any questions or if the following or other troubling symptoms develop: 1) Prolonged dizziness or weakness (more than 1 day). 2) Localized swelling, redness or drainage at the injection site(s). 3) Temperature of 101 degrees that lasts for more than 4 hours. After 5 PM or on weekends, call and ask for Pain Clinic provider on-call. If you are unable to reach the Pain Management Center and have a complication, please call your Primary Care Provider or proceed to your local emergency department. Miah Whittaker Special instructions documented in this encounter Medications at Time of Discharge Medication Sig Dispensed Refills Start Date End Date UNABLE TO FIND 2,500 mcg daily. Med Name: Vitamin b12 BD Luer-Kg Syringe 3 mL 22 gauge x 1 Syringe USE TWICE MONTHLY 09/23/2020 testosterone cypionate (DepoTESTOSTERONE Cypionate) (200mg/mL) injection Inject 100 mg into the muscle every 14 days. flu vac [id number] 36mos up,PF, (Afluria Qd 2019-,3yr up,,PF,) 60 mcg (15 mcg x 4)/0.5 mL Syringe Afluria Qd 2019- (36 mos up)(PF)60 mcg (15 mcg x4)/0.5 mL IM syringe ADM 0.5ML IM UTD BD SafetyGlide Needle 25 x 5/8 Needle EVERY 2 WEEKS WITH TESTOSTERONE 07/26/2019 BD SafetyGlide Needle 25 gauge x 1 Needle 04/09/2019 irbesartan (AVAPRO) 75 mg Tablet daily. 07/09/2019 cyanocobalamin, vitamin B-12, 1,000 mcg/mL Solution Once a Month 0 12/13/2016 FLOVENT HFA 220 mcg/actuation HFA Aerosol Inhaler as needed. 11/03/2016 folic acid (FOLVITE) 1 mg Tablet daily. 08/10/2015 meTOPROLOL succinate (TOPROL-XL) 25 mg Tablet Sustained Release 24 hr daily. 08/10/2015 aspirin 81 mg EC tablet Take 81 mg by mouth daily. albuterol-ipratropium (COMBIVENT) 18-103 mcg/actuation Aerosol Inhale 2 puffs into the lungs every 6 hours as needed. omeprazole (PRILOSEC) 20 mg capsule Take 20 mg by mouth daily. NELLIE'S WORT ORAL Take by mouth. 01/01 UNKNOWN TO PATIENTIndications:L-t heteetee Indications: L-theanine 06/2023 allopurinol (ZYLOPRIM) 300 mg tablet Take 300 mg by mouth daily. 01/01/2023 documented as of this encounter H&P Notes * Carlos Enrique Arroyo MD - 08/02/2021 8:36 PM EST Patient Name: Grayson Dodd III Patient Age: 61 y.o. Birthdate: 1960 Admit date: 08/03/2021 Attending Physician: Emerson Chand MD PREPROCEDURE HISTORY AND PHYSICAL Date of Visit: August 03, 2021 Chief Complaint: Neck pain HPI: Grayson Dodd III is a 61 y.o. male with a diagnosis of Spondylosis of cervical region without myelopathy or radiculopathy who presents today for: Procedure: Right C3,4,5,6 RFA The patient is currently on aspirin and per MARTA guidelines not essential to hold. The patient denies any allergy to local anesthetics, contrast dye, or steroids. Allergic to Chlorhexidine No recent or planned vaccinations. Patient denies any recent antibiotic use. Patient states they are in their usual state of health. The history is obtained from the patient, and I have reviewed medical records provided by the referring physician and located in the electronic medical record to fill in gaps in the patient's recollection of events, treatments and outcomes. LOCATION: Neck pain. PAIN LEVEL AT REST 6/10 PAST MEDICAL HISTORY: Past Medical History: Diagnosis Date ??? Gout ??? Hx of hypogonadism ??? Hypertension ??? Type 2 diabetes mellitus There are no medical history contraindications to this procedure. PAST SURGICAL HISTORY: Past Surgical History: Procedure Laterality Date ??? CARPAL TUNNEL RELEASE Right carpal tunnel release, FCR release, fasciotomy small and ring fingers ??? HERNIA REPAIR ??? ROTATOR CUFF REPAIR left shoulder x 2 ??? SPINAL FUSION There are no past surgical contraindications to this procedure ALLERGIES: Dilaudid [hydromorphone (pf)], Chlorhexidine gluconate, Oxycodone-acetaminophen, Pollen extracts, and Telfa [adhesive bandage] There are no allergic contraindications to this procedure. MEDICATIONS: No current facility-administered medications for this encounter. There are no medication contraindications to this procedure. FAMILY HISTORY: No family history on file. SOCIAL HISTORY: Social History Socioeconomic History ??? Marital status: Spouse name: Not on file ??? Number of children: Not on file ??? Years of education: Not on file ??? Highest education level: Not on file Occupational History ??? 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 Smoking status: Never Smoker ??? Smokeless tobacco: Never Used Vaping Use ??? Vaping Use: Never used Substance and Sexual Activity ??? Alcohol use: Yes Comment: 4-5 cans of beer a day ??? Drug use: No ??? Sexual activity: Not on file Other Topics Concern ??? Not on file Social History Narrative ??? Not on file Social Determinants of Health Financial Resource Strain: Not on file Food Insecurity: Not on file Transportation Needs: Not on file Physical Activity: Not on file Housing Stability: Not on file There are no social history contraindications to this procedure. ROS: Review of Systems Constitutional: Negative for fever, chills, or recent infection. Respiratory: Negative for shortness of breath. Cardiovascular: Negative for chest pain. Musculoskeletal: Positive for neck pain. Psychiatric/Behavioral: Negative for agitation and behavioral problems. PHYSICAL EXAM: BP (!) 148/97 (Patient Position: Sitting) Pulse 77 Ht 177.8 cm (5' 10) Wt 88.9 kg (196 lb) SpO2 99% BMI 28.12 kg/m?? Physical Exam Constitutional: He appears well-developed and well-nourished. No distress. Cardiovascular: Normal heart rate. Pulmonary/Chest: Effort normal and breath sounds normal. Skin: He is not diaphoretic. This is no rash, apparent infection, or other abnormality to the area of the proposed injection. No LMP for male patient. There are no physical examination findings which would preclude this procedure. LABS: No results for input(s): WBC, RBC, HGB, HCT, MCV, MCH, MCHC, PLATELET, RDWCV in the last 168 hours. No results for input(s): PT, PTT, INR in the last 168 hours. ASSESSMENT: Spondylosis of cervical region without myelopathy or radiculopathy PLAN: Proceed with procedure as planned. Thank you for the opportunity to participate in Grayson Dodd III's care. Please feel free to contact me with any questions. Sincerely, Carlos Enrique Arroyo MD Pain Medicine Fellow [address] [phone] / [facility] CC: Didier Romero MD [address] [place] [id number] documented in this encounter Miscellaneous Notes * Op Note - Emerson Chand MD - 08/03/2021 8:32 AM EST Pain Management Operative Note Patient Name: Grayson Dodd III : [id number] MR#: [id number] Case Date: 08/03/2021 Surgeon: Surgeon(s) and Role: * Emerson Chand MD - Primary * Carlo sEnrique Arroyo MD - Fellow Present on Admission: ??? Spondylosis of cervical region without myelopathy or radiculopathy Postoperative diagnosis: Same Procedure(s) (LRB): DESTRUCT BY LYTIC AGENT, FACET NERVE(S), W/IMAGING; CX OR THX, EA ADD (WRVU 1.32) (Right) DESTRUCT BY LYTIC AGNT, FACET JT NERVE(S), W/IMAGING; CX OR THX, SNGL (WRVU 3.84) (Right) CERVICAL MEDIAL BRANCH RADIOFREQUENCY Date of Service: 07/20/2021 Patient: Grayson Dodd III Provider: Emerson Chand MD Grayson Dodd III has been referred to the Pain Management Center for radiofrequency treatment ofchronic axial neck pain. He has had long standing cervical pain thought to be facet joint generatedand which has been refractory to other therapies. Local anesthetic medial branch blocks resulted inMr. Dodd reporting a greater than 50% reduction of the usual axial component of pain for at leastthe duration of the local anesthetic effect. Mr. Dodd was interviewed and the medical record reviewed. There were no medical, pharmacologic, radiographic or other structural contraindications to attempting fluoroscopically guided radiofrequency treatment. Risks and expected side effects as well as potential benefit of the procedure were reviewed with Mr. Dodd, and he voiced concerns addressed. The printed consent form was signed and witnessed. Standard time-out procedure was performed. Mr. Dodd was placed in the prone position on the fluoroscopy table and automated blood pressure cuff and pulse oximeter applied. The skin entry points for approaching the anatomic target points of the segmental medial branches of right C3, C4, C5 and C6 were identified with fluoroscopic guidance.Following thorough Chlorhexidine preparation of the skin and draping and 1% lidocaine infiltration of the skin entry points and subcutaneous tissues, a 10cm, 20guage, 10mm active tip radiofrequency cannula was placed under fluoroscopic guidance at the anatomic course of each respective segmental medial branch. Each placement was stimulated at 50Hz and up to 1v in attempt to reproduce some component of Grayson Dodd III???s usual pain. If this response was accomplished, the cannula was left inplace. If it could not be accomplished after multiple attempts, the cannula was placed at what was felt to be the closest anatomic approximation to the segmental medial branch. Each placement was stimulated at 2Hz and up to 3v without any evidence of distal myotomal stimulation. 0.5ml of 1% lidocaine was injected each level. At each placement a continuous mode radiofrequency treatment was done at90 degrees C for 90secs then rotated 180 degrees and repeated. This radiofrequency treatment should result in the denervation of the right C3- 4, C4-5 and C5-6. A total of 3 facets were expected to be denervated from today's treatment. Mr. Dodd's vital signs were stable throughout the procedure and were as recorded in the docflowsheet by the nursing staff. If given, dosages of intravenous drugs for anxiolysis and analgesia were documented in the Medication Administration Record (MAR). Follow up plans and appointments were discussed with Grayson Dodd JOSE. Post procedure instruction was given as documented in the nursing documentation and having met discharge criteria, he was discharged from the Pain Management Center. The procedure was performed by Dr. Arroyo under my supervision. I was the attending physician supervising the fellow in the above care and I was present with the fellow for the entire procedure. Emerson Chand MD Attending Physician [facility] [place] [address] / CC: Didier Romero MD [address] [place] [phone] documented in this encounter Plan of Treatment Upcoming Encounters Date Type Department Care Team (Late st Contact Info) Description 01/03/2024 8:15 AM EDT Office Visit Dermatology at [address] [place] [address] Jake Galvez MD [address] [facility] [place] [address] documented as of this encounter Procedures Procedure Name Priority Date/Time Associated Diagnosis Comments Dstr Paravertebral Fct Jnt Nrves Cervical or Thoracic Single 08/03/2021 8:17 AM EST Cervical spondylosis Cervicalgia Dstr Paravertebral Fct Jnt Nrves Cervical or Thoracic Addl 08/03/2021 8:17 AM EST Cervical spondylosis Cervicalgia DESTRUCT BY LYTIC AGENT, FACET NERVE(S), W/IMAGING; CX OR THX, EA ADD Routine 08/03/2021 7:29 AM EST Cervical spondylosis Cervicalgia DESTRUCT BY LYTIC AGNT, FACET JT NERVE(S), W/IMAGING; CX OR THX, SNGL Routine 08/03/2021 7:29 AM EST Cervical spondylosis Cervicalgia documented in this encounter Visit Diagnoses Diagnosis Spondylosis of cervical region without myelopathy or radiculopathy- Primary Cervical spondylosis without myelopathy Cervical spondylosis Cervical spondylosis without myelopathy Cervicalgia Cervical spondylosis Cervical spondylosis without myelopathy Cervicalgia documented in this encounter Administered Medications Inactive Administered Medications - up to 3 most recent administrations Medication Order MAR Action Action Date Dose Rate Site dexamethasone (PF) (Decadron) (10 mg/mL) injection ONCE PRN, Starting on Sun08/03/21 at 0838, Until Sun08/03/21 at 1128, Intra-Operative (Intra-Procedure), Routine Given 08/03/2021 8:38 AM EST 10 mg lidocaine (pf) (Xylocaine) (10 mg/mL) 1% injection ONCE PRN, Starting on Sun08/03/21 at 0839, Until Sun08/03/21 at 1128, Intra-Operative (Intra-Procedure), Routine Given 08/03/2021 8:39 AM EST 3 mLs lidocaine (pf) (Xylocaine) (20 mg/mL) 2% injection ONCE PRN, Starting on Sun08/03/21 at 0905, Until Sun08/03/21 at 1128, Intra-Operative (Intra-Procedure), Routine Given 08/03/2021 9:05 AM EST 4 mLs documented in this encounter Active and Recently Administered Medications Times are shown in EST. PRN Medication Order 08/01/2021 08/02/2021 08/03/2021 dexamethasone (PF) (Decadron) (10 mg/mL) injection (CANCELED) ONCE PRN, Starting on Sun08/03/21 at 0838, Until Sun08/03/21 at 1128, Intra-Operative (Intra-Procedure), Routine 08 (Given - Provid er: Carlos Enrique Arroyo MD - Comment: right cervical RFA) lidocaine (pf) (Xylocaine) (10 mg/mL) 1% injection (CANCELED) ONCE PRN, Starting on Sun08/03/21 at 0839, Until Sun08/03/21 at 1128, Intra-Operative (Intra-Procedure), Routine 08 (Given - Provid er: Carlos Enrique Arroyo MD - Comment: right cervical RFA) lidocaine (pf) (Xylocaine) (20 mg/mL) 2% injection (CANCELED) ONCE PRN, Starting on Sun08/03/21 at 0905, Until Sun08/03/21 at 1128, Intra-Operative (Intra-Procedure), Routine 09 (Given - Provid er: Carlos Enrique Arroyo MD - Comment: right cervical RFA) documented in this encounter Care Teams Engine Hostler Relationship Specialty Start Date End Date iDdier Romero MD [address] [place] [phone] PCP - General Family Medicine 01/11/17 documented as of this encounter
--- OUTSIDE RECORDS SUMMARY | 2023-12-25 18:47 | XMS_ITS | Encounter Summary ---
[place] [address] Care Team Providers Care Medical Technicians Name Role Phone Didier Romero MD Primary Care Provider + Encounter Details Date Type Department Care Team (Latest Contact Info) Description 07/05/2023 Travel Social History Tobacco Use Types Packs/Day [...] 8:15 AM EDT Office Visit Dermatology at [address] [place] [phone] Jake Galvez MD [address] [place] [address] [place] [address] documented as of this encounter Visit Diagnoses Not on filedocumented in this encounter Care Teams Medical Technicians Relationship Specialty Start Date End Date Didier Romero MD [address] [place] [address] PCP - General Family Medicine 01/11/17 documented as of this encounter
--- OUTSIDE RECORDS SUMMARY | 2023-12-25 18:47 | XMS_ITS | Clinical Summary ---
Author Organization [facility] [place] [address] Care Team Providers Care Chemistry Manager Name Role Phone Didier Romero MD Primary Care Provider + Allergies Active Allergy Reactions Criticality Noted Date Comments Chlorhexidine Gluconate Medium 05/07/2020 Other reaction(s): Rash & Burning Hydromorphone (Pf) Other (See Comments) High 05/17/2020 Lowers blood pressure Oxycodone-Acetaminophe n 05/17/2020 Other reaction(s): Hallucinations Pollen Extracts 01/23/2019 Medications Medication Sig Dispensed Refills Start Date End Date Status aspirin 81 mg EC tablet Take 81 mg by mouth daily. Active albuterol-ipratropiu m (COMBIVENT) 18-103 mcg/actuation Aerosol Inhale 2 puffs into the lungs every 6 hours as needed. Active omeprazole (PRILOSEC) 20 mg capsule Take 20 mg by mouth daily. Active folic acid (FOLVITE) 1 mg Tablet daily. 08/10/2015 Active meTOPROLOL succinate (TOPROL-XL) 25 mg Tablet Sustained Release 24 hr daily. 08/10/2015 Active cyanocobalamin, vitamin B-12, 1,000 mcg/mL Solution Once a Month 0 12/13/2016 Active FLOVENT HFA 220 mcg/actuation HFA Aerosol Inhaler as needed. 11/03/2016 Active BD SafetyGlide Needle 25 x 5/8 Needle EVERY 2 WEEKS WITH TESTOSTERONE 07/26/2019 Active BD SafetyGlide Needle 25 gauge x 1 Needle 04/09/2019 Active irbesartan (AVAPRO) 75 mg Tablet daily. 07/09/2019 Active flu vac [id number] 36mos up,PF, (Afluria Qd ,3yr up,,PF,) 60 mcg (15 mcg x 4)/0.5 mL Syringe Afluria Qd (36 mos up)(PF)60 mcg (15 mcg x4)/0.5 mL IM syringe ADM 0.5ML IM UTD Active testosterone cypionate (DepoTESTOSTERONE Cypionate) (200mg/mL) injection Inject 100 mg into the muscle every 14 days. Active BD Luer-Gk Syringe 3 mL 22 gauge x 1 Syringe USE TWICE MONTHLY 09/23/2020 Active UNABLE TO FIND 2,500 mcg daily. Med Name: Vitamin b12 Active isosorbide mononitrate CR (Imdur) 30 mg Tablet Sustained Release 24 hr Take 30 mg by mouth daily. 10/22/2021 Active gabapentin (Neurontin) 100 mg capsule TAKE ONE CAPSULE BY MOUTH EVERY MORNING; MAY INCREASE TO 2 CAPSULES IF NEEDED. 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 Androgel 5 gm qd which helped libido & ED 05/13: Total testosterone 378, low normal SHBG 13.4 (nl 13-71), free testosterone 11.5 (nl 5-24), PSA 0.5, Hb 14.2, TSH 1.1, iron studies -wnl CIS - Diabetes type II, good control Overview (08/09/2010): A1c 6.7(01/11)->6.1% with normal lipids (lipids: 164/69/83/62) CIS - Gout CIS - HTN CIS - Obesity Social History Tobacco Use Types Packs/Day Years Used Date Smoking Tobacco: Never Smokeless Tobacco: Never Alcohol Use Standard Drinks/Week Comments Yes 0 (1 standard drink = 0.6 oz pur e alcohol) 4-5 cans of beer a day Sex and Gender Information Value Date Recorded Sex Assigned at Not on file Gender Identity Not on file Sexual Orientation Not on file Last Filed Vital Signs Vital Sign Reading Time Taken Comments Blood Pressure 144/101 11/07/2021 9:00 AM EDT Pulse 94 11/07/2021 7:42 AM EDT Temperature 36.9 ??C (98.4 ??F) 09/06/2020 12:27 PM E DT Respiratory Rate 20 12/16/2020 7:08 AM EDT Oxygen Saturation 97% 11/07/2021 9:00 AM EDT Inhaled Oxygen Concentration - - Weight 88.9 kg (196 lb) 11/07/2021 7:42 AM EDT Height 177.8 cm (5' 10) 11/07/2021 7:42 AM EDT Body Mass Index 28.12 11/07/2021 7:42 AM EDT Plan of Treatment Upcoming Encounters Date Type Department Care Team (Late st Contact Info) Description 01/03/2024 8:15 AM EDT Office Visit Dermatology at [place] [address] [facility] [place] [phone] Jake Galvez MD [address] [place] [address] Health Maintenance Due Date Last Done Comments CT Colonography 1961 Colonoscopy 1960 Colorectal Cancer Screening 1960 FIT DNA 1960 FIT 1960 Sigmoidoscopy (10 year) with FIT yearly 1960 Sigmoidoscopy 1960 Pneumococcal Vaccine: At-Risk 5-64yrs (1 of 2 - PCV) 0 1967 DM Creatinine yearly 1971 DM Hemoglobin A1c 1971 DM Opthalmology Exam 1971 DM Urine Microalbumin yearly 1971 HIV screen 1979 Hepatitis C Screening 1979 Lipid Screening 1979 Tdap adult 01/03/1980 Tetanus vaccine 01/03/1980 Zoster vaccine (1 of 2) 2011 Advance Directive 01/03/2016 Covid-19 Vaccine (2022- season) 2023 Influenza (Flu) vaccine (1 o f 1 - Influenza standard series) 02/03/2024 Care Teams Chemistry Manager Relationship Specialty Start Date End Date Didier Romero MD [address] [place] [address] PCP - General Family Medicine 01/11/17
--- OUTSIDE RECORDS SUMMARY | 2023-12-25 18:47 | XMS_ITS | Encounter Summary ---
Author Organization [facility] [place] [address] Care Team Providers Care Cyber Security Analyst Name Role Phone Didier Romero MD Primary Care Provider + Encounter Details Date Type Department Care Team (Late st Contact Info) Description 09/08/2021 [place] [address] Roseanne Charles APRN [facility] [place] [address] Social History Tobacco Use Types Packs/Day Years [...] 8:15 AM EDT Office Visit Dermatology at [address] [phone] Jake Galvez MD [address] [place] [place] [address] documented as of this encounter Visit Diagnoses Not on filedocumented in this encounter Care Teams Cyber Security Analyst Relationship Specialty Start Date End Date Didier Romero MD [address] [place] [address] PCP - General Family Medicine 01/11/17 documented as of this encounter
--- OUTSIDE RECORDS SUMMARY | 2023-12-25 18:47 | XMS_ITS | Encounter Summary ---
Author Organization [facility] [place] [address] Care Team Providers Care Picu Nurse Name Role Phone Didier Romero MD Primary Care Provider + Encounter Details Date Type Department Care Team (Late st Contact Info) Description 06/09/2021 Telephone [facility] [place] [phone] Emili Calzada RN Social History Tobacco Use Types Packs/Day [...] encounter Miscellaneous Notes * Telephone Encounter - Emili Calzada RN - 06/09/2021 9:15 AM EST VM received on seasonal recruiter line from Anisha Xie, nurse practitioner at [facility]. Anisha is asking ifDr. Aner can consider repeat right cervical blocks, as pt has return of pain to his left neck. Per chart, pt underwent right cervical RFA on 07/26/2020. He is also being worked up for lumbar painad potential SCS placement. Call placed to pt to discuss. Pt reports return of pain to his right neck over the last couple months. He would like to repeat his radiofrequency ablation. Pt last seen in clinic on 06/01/21, to primarily discuss lumbar pain, will touch base with Dr. Chand on if pt needs repeat OV before proceeding. Procedure Requested: Right C3, C4, C5 or C6 cervical radiofrequency What is your current Pain Score (1-10 range)? 710 Pain Asmt (include sidedness, characteristics & distribution): Right sided neck pain, feels sharp in nature and causes headache. Pt states this is the same pain he experienced prior to his last RFA. (If a repeat injection, note if pain is the same or changed since prior to last inj) Date(s) of last procedure: 07/26/20 Did previous procedure relieve pain? yes If yes, Duration: ~9 months 80% of relief received from previous injection. Pertinent Medical History - h/o Thrombocytopenia/bleeding tendency/platelet dysfunction: no - h/o Liver disease; abnormal liver function: no - h/o Chronic kidney disease (CKD); abnormal kidney function: no - Patient on dialysis? no - Patient has pacemaker/defibrillator: no Is patient taking an anticoagulant? None Is patient taking any NSAIDS/supplements? None Is patient taking aspirin? yes If yes, is it prescribed? yes, PCP following TIA in 2015. If yes, what reason is it prescribed? Is patient taking Antibiotics? No Has patient been on greater than 40mg of steroid 14 days or longer? No Has patient had any steroid injections anywhere in his/her body within the last two weeks? No Does patient need sedation? yes Does patient need NPO guidelines? yes Does patient have allergies to contrast/local anesthetic/steroid? No Renea MARINELLI documented in this encounter Plan of Treatment Upcoming Encounters Date Type Department Care Team (Late st Contact Info) Description 01/03/2024 8:15 AM EDT Office Visit Dermatology at [place] [address] [place] [phone] Jake Galvez MD [address] [place] [address] documented as of this encounter Visit Diagnoses Not on filedocumented in this encounter Care Teams Picu Nurse Relationship Specialty Start Date End Date Didier Romero MD [address] [place] [id number] PCP - General Family Medicine 01/11/17 documented as of this encounter
--- OUTSIDE RECORDS SUMMARY | 2023-12-25 18:47 | XMS_ITS | Encounter Summary ---
[place] [address] Care Team Providers Care Journeyman Patternmaker Name Role Phone Didier Romero MD Primary Care Provider + Reason for Visit * Auth/Cert Specialty Diagnoses / Procedures Referred By Contac t Referred To Contact Diagnoses Lumbosacral radiculopathy Procedures PRO INJECTION DX/THER SBST INTRLMNR LMBR/SAC W/IMG GDN INJECTION, EPIDURAL, LUMBAR OR SACRAL (CAUDAL), WITH IMAGING GUIDANCE (WRVU 1.8) Referral ID Status Reason Start Date Expiration Date Visits Re quested Visits Authorized [id number] 1 1 Encounter Details Date Type Department Care Team (Late st Contact Info) Description 02/03/2021 9:00 AM EDT - 02/03/2021 9:30 AM [place] [address] Emerson Chand MD [facility] [place] [address] INJECTION, EPIDURAL, LUMBAR OR SACRAL (CAUDAL), WITH IMAGING GUIDANCE (WRVU 1.8) Social History Tobacco Use Types Packs/Day Years [...] Sign Reading Time Taken Comments Blood Pressure 160/98 02/03/2021 9:20 AM EDT Pulse - - Temperature - - Respiratory Rate - - Oxygen Saturation 99% 02/03/2021 9:20 AM EDT Inhaled Oxygen Concentration - - Weight 88 kg (194 lb) 02/03/2021 9:20 AM EDT Height 177.8 cm (5' 10) 02/03/2021 9:20 AM EDT Body Mass Index 27.84 02/03/2021 9:20 AM EDT documented in this encounter Discharge Instructions * Discharge Instructions* Miah Whittaker - 02/03/2021 10:09 AM EDT Pain Management Center Discharge Instructions: You were seen today by Surgeon(s): Emerson Chand MD Krause, Jeffrey A, MD The following was performed: Procedure(s) (LRB): INJECTION, EPIDURAL, LUMBAR OR SACRAL (CAUDAL), WITH IMAGING GUIDANCE (WRVU 1.8) (Left) It is normal that the injection site [...] your bladder 4-6 hours after your procedure. You received the following medications: Medications Given During Procedure Date/Time Order Dose Route Action 02/03/2021 1001 iohexoL (Omnipaque) (240 mg/mL) injection solution 2 mL Epidural Given 02/03/2021 1002 lidocaine (pf) (Xylocaine) (10 mg/mL) 1% injection 2 mL Other Given 02/03/2021 1001 lidocaine (pf) (Xylocaine) (10 mg/mL) 1% injection 5 mL Subcutaneous Given 02/03/2021 1001 methylPREDNISolone acetate (DEPO-Medrol) (80 mg/mL) injection 80 mg Epidural Given During regular business hours, please phone [...] the muscle every 14 days. flu vac [id number] 36mos up,PF, (Afluria Qd 2019-,3yr up,,PF,) 60 [...] capsule Take 20 mg by mouth daily. allopurinol (ZYLOPRIM) 300 mg tablet Take 300 mg by mouth daily. 01/01/2023 documented as of this encounter H&P Notes * Carlos Enrique Arroyo MD - 02/03/2021 5:33 AM EDT Patient Name: Grayson Dodd III Patient Age: 61 y.o. Birthdate: 1960 Admit date: 02/03/2021 Attending Physician: Emerson Chand MD PREPROCEDURE HISTORY AND PHYSICAL Date of Visit: February 03, 2021 Chief Complaint: Low back and bilateral leg pain L>R HPI: Grayson Dodd III is a 61 y.o. male who presents today for Caudal NABIL with a diagnosis of 1. Radiculopathy of lumbosacral region resulting in symptoms of low back and bilateral leg pain L>R. The history is obtained from the patient, and I have reviewed medical records provided by the referring physician and located in the electronic medical record to fill in gaps in the patient's recollection of events, treatments and outcomes. LOCATION: across the lower back or radiating to bilateral leg(s) . PAIN LEVEL AT REST 5/10 PAST MEDICAL HISTORY: Past Medical History: Diagnosis [...] Social Determinants of Health Financial Resource Strain: ??? Difficulty of Paying Living Expenses: Not on file Food Insecurity: ??? Worried About Running Out of Food in the Last Year: Not on file ??? Ran Out of Food in the Last Year: Not on file Transportation Needs: ??? Lack of Transportation (Medical): Not on file ??? Lack of Transportation (Non-Medical): Not on file Physical Activity: ??? Days of Exercise per Week: Not on file ??? Minutes of Exercise per Session: Not on file There are no social history contraindications to this procedure. ROS: Review of Systems Constitutional: Negative for fever, chills, or recent infection. Respiratory: Negative for shortness of breath. Cardiovascular: Negative for chest pain. Musculoskeletal: Positive for low back and L leg pain. Psychiatric/Behavioral: Negative for agitation and behavioral problems. PHYSICAL EXAM: BP (!) 160/98 Ht 177.8 cm (5' 10) Wt 88 kg (194 lb) SpO2 99% BMI 27.84 kg/m?? Physical Exam Constitutional: He appears well-developed and well-nourished. No distress. Cardiovascular: Normal heart rate. Pulmonary/Chest: Effort normal and breath sounds normal. Skin: He is not diaphoretic. This is no rash, apparent infection, or other abnormality to the area of the proposed injection. There are no physical examination findings which would preclude this procedure. ASSESSMENT: 1. Radiculopathy of lumbosacral region PLAN: Proceed with procedure as planned. Thank you for the opportunity to participate in Grayson Dodd III's care. Please feel free to contact me with any questions. Sincerely, Carlos Enrique Arroyo MD Pain Medicine Fellow [address] [phone] / [facility] documented in this encounter Miscellaneous Notes * Op Note - Carlos Enrique Arroyo MD - 02/03/2021 10:01 AM EDT Pain Management Operative Note Patient Name: Grayson Dodd III : [id number] MR#: [id number] Case Date: 02/03/2021 Surgeon: Surgeon(s) and Role: * Emerson Chand MD - Primary * Carlos Enrique Arroyo MD - Fellow Present on Admission: ??? Radiculopathy of lumbosacral region Postoperative diagnosis: same Procedure(s) (LRB): INJECTION, EPIDURAL, LUMBAR OR SACRAL (CAUDAL), WITH IMAGING GUIDANCE (WRVU 1.8) (Left) CAUDAL STERIOID INJECTION Date of Service: 01/13/2021 Patient: Grayson Dodd III Provider: Carlos Enrique Arroyo MD Grayson Dodd III has been referred to the Pain Management Center for caudal epidural steroid injection. Mr. Dodd was interviewed and the medical record reviewed. There were no medical, pharmacologic, radiographic or other structural contraindications to attempting fluoroscopically guided epidural steroid injection. Risks and expected side effects as well as potential benefit of the procedure were re viewed with Mr. Dodd, and his voiced concerns addressed. The printed consent form was signed and witnessed. Standard time-out procedure was performed. Mr. Dodd was placed in the prone position on the fluoroscopy table and automated blood pressure cuff and pulse oximeter applied. The skin entry point for entering/approaching the epidural space by a caudal approach through the sacral hiatus and marked. Following thorough chlorhexidine preparationx2 of the skin and draping and 1% lidocaine infiltration of the skin entry point and subcutaneous tissues, a 17 gauge Touhy needle was placed under fluoroscopic guidance into the epidural space. Needle tip placement and depth were aided and confirmed by fluoroscopy in the lateral and AP position. There was no paresthesia or return of blood or CSF through the needle. An Arrow 19G radio-opaqueepidural catheter was advanced into the epidural space to L5 and 2 cc of Omnipaque 240 was injectedwith clear epidural spread. 80 mg of Depomedrol with Lidocaine 1% 2 ml and 1 ml PFNS was injected. There was no unusual discomfort expressed by Mr. Dodd. Mr. Dodd's vital signs were stable throughout the procedure and were as recorded in the docflowsheet by the nursing staff. If given, dosages of intravenous drugs for anxiolysis and analgesia were documented in MAR. PLAN: - Follow up with Dr. Chand Post procedure instruction was given as documented in nursing documentation and having met discharge criteria, he was discharged from the Pain Management Center. Carlos Enrique Arroyo MD Pain Medicine Fellow [address] [phone] / [facility] CC: Didier Romero MD [address] [place] [phone] Associated attestation - Emerson Chand MD - 02/04/2021 8:55 AM EDT Attestation: Case Date: 02/03/2021 I was present and I participated during the entire procedure (does not need to include opening and closing). Emerson Chand MD 02/04/2021 documented in this encounter Plan of Treatment Upcoming Encounters Date Type Department Care Team (Late st Contact Info) Description 01/03/2024 8:15 AM EDT Office Visit Dermatology at [address] [phone] Jake Galvez MD [address] [facility] [place] [address] (work) Scheduled Orders Name Type Priority Associated Diagnoses Orde r Schedule INJECTION, EPIDURAL, LUMBAR OR SACRAL (CAUDAL), WITH IMAGING GUIDANCE Procedures Routine Radiculopathy of lumbosacral region One Time for 1 Occurrences starting 02/03/2021 until 02/03/2021 documented as of this encounter Visit Diagnoses Diagnosis Radiculopathy of lumbosacral region Thoracic or lumbosacral neuritis or radiculitis, unspecified Radiculopathy of lumbosacral region Thoracic or lumbosacral neuritis or radiculitis, unspecified Radiculopathy of lumbosacral region Thoracic or lumbosacral neuritis or radiculitis, unspecified documented in this encounter Administered Medications Inactive Administered Medications - up to 3 most recent administrations Medication Order MAR Action Action Date Dose Rate Site iohexoL (Omnipaque) (240 mg/mL) injection solution ONCE PRN, Starting on Ginger 02/03/21 at 1001, Until Ginger 02/03/21 at 1219, Intra-Operative (Intra-Procedure), Routine Given 02/03/2021 10:01 AM EDT 2 mLs lidocaine (pf) (Xylocaine) (10 mg/mL) 1% injection ONCE PRN, Starting on Ginger 02/03/21 at 1001, Until Ginger 02/03/21 at 1219, Intra-Operative (Intra-Procedure), Routine Given 02/03/2021 10:02 AM EDT 2 mLs Given 02/03/2021 10:01 AM EDT 5 mLs methylPREDNISolone acetate (DEPO-Medrol) (80 mg/mL) injection ONCE PRN, Starting on Ginger 02/03/21 at 1001, Until Ginger 02/03/21 at 1219, Intra-Operative (Intra-Procedure), Routine Given 02/03/2021 10:01 AM EDT 80 mg documented in this encounter Active and Recently Administered Medications Times are shown in EDT. PRN Medication Order 02/01/2021 02/02/2021 02/03/2021 iohexoL (Omnipaque) (240 mg/mL) injection solution (CANCELED) ONCE PRN, Starting on Ginger 02/03/21 at 1001, Until Ginger 02/03/21 at 1219, Intra-Operative (Intra-Procedure), Routine 1001 (Given - Provid er: Carlos Enrique Arroyo MD) lidocaine (pf) (Xylocaine) (10 mg/mL) 1% injection (CANCELED) ONCE PRN, Starting on Ginger 21 at 1001, Until Ginger 9 at 1219, Intra-Operative (Intra-Procedure), Routine 1001 (Given - Provid er: Carlos Enrique Arroyo MD)1002 (Given - Provider: Carlos Enrique Arroyo MD - Comment: caudal) methylPREDNISolone acetate (DEPO-Medrol) (80 mg/mL) injection (CANCELED) ONCE PRN, Starting on Ginger 02/03/21 at 1001, Until Ginger 02/03/21 at 1219, Intra-Operative (Intra-Procedure), Routine 1001 (Given - Provid er: Carlos Enrique Arroyo MD) documented in this encounter Care Teams Journeyman Patternmaker Relationship Specialty Start Date End Date Didier Romero MD [address] [place] [id number] PCP - General Family Medicine 01/11/17 documented as of this encounter
--- OUTSIDE RECORDS SUMMARY | 2023-12-25 18:47 | XMS_ITS | Encounter Summary ---
[place] [address] Care Team Providers Care Mercury Washer Name Role Phone Didier Romero MD Primary Care Provider + Encounter Details Date Type Department Care Team (Latest Contact Info) Description 07/03/2022 Travel Social History Tobacco Use Types Packs/Day [...] 8:15 AM EDT Office Visit Dermatology at [address] [place] [phone] Jake Galvez MD [address] [place] [address] [place] [address] documented as of this encounter Visit Diagnoses Not on filedocumented in this encounter Care Teams Mercury Washer Relationship Specialty Start Date End Date Didier Romero MD [address] [place] [address] PCP - General Family Medicine 01/11/17 documented as of this encounter
--- OUTSIDE RECORDS SUMMARY | 2023-12-25 18:47 | XMS_ITS | Encounter Summary ---
[place] [address] Care Team Providers Care Attenuator Name Role Phone Didier Romero MD Primary Care Provider + Encounter Details Date Type Department Care Team (Latest Contact Info) Description 01/01/2023 Travel Social History Tobacco Use Types Packs/Day [...] 8:15 AM EDT Office Visit Dermatology at [address] [place] [phone] Jake Galvez MD [address] [place] [address] [place] [address] documented as of this encounter Visit Diagnoses Not on filedocumented in this encounter Care Teams Attenuator Relationship Specialty Start Date End Date Didier Romero MD [address] [place] [address] PCP - General Family Medicine 01/11/17 documented as of this encounter
--- OUTSIDE RECORDS SUMMARY | 2023-12-25 18:47 | XMS_ITS | Encounter Summary ---
[place] [address] Care Team Providers Care Credit Reporter Name Role Phone Didier Romero MD Primary Care Provider + Reason for Visit * Reason Comments Follow-up Encounter Details Date Type Department Care Team (Late st Contact Info) Description 07/20/2022 9:00 AM EST Procedure visit Dermatology at [address] [phone] Jake Galvez MD [address] [facility] [place] [place], [place] [id number] History of malignant melanoma Social History Tobacco [...] Progress Notes * Jake Galvez MD - 07/20/2022 9:00 AM EST Clinical impression: Atypical intraepidermal melanocytic proliferation, suspicious for evolving melanoma in situ, lentigo melanoma maligna type. Site: Left lateral neck Size: 1.6 cm Deep suture: 3-0 Vicryl Surface suture: 4-0 Ethilon Follow-up: In 1 week for suture removal and biopsy results. Indications for surgery, possible adverse outcomes, and activity restrictions discussed. Informed verbal consent was obtained. Skin surface was prepared with rubbing alcohol, and draped in the usual sterile manner. Local anesthesia with 1% lidocaine, 1 100,000 epinephrine and 0.1 mg of bicarbonate. Using a #15 blade, and a 5mm margins, an elliptical excision was carried out around the lesion. Undermining performed peripherally. Hemostasis with electrodesiccation. Layered closure performed, specimen to pathology. Wound dressed, wound care reviewed. End length suture line was 4 centimeters Follow-up in 1 week for suture removal and biopsy results CC: Didier Romero MD documented in this encounter Plan of Treatment Upcoming Encounters Date Type Department Care Team (Late st Contact Info) Description 01/03/2024 8:15 AM EDT Office Visit Dermatology at [address] [phone] Jake Galvez MD [address] [place] [address] [place] [address] documented as of this encounter Visit Diagnoses Diagnosis History of malignant melanoma Personal history of malignant melanoma of skin documented in this encounter Care Teams Credit Reporter Relationship Specialty Start Date End Date Didier Romero MD [address] [place] [address] PCP - General Family Medicine 01/11/17 documented as of this encounter
--- OUTSIDE RECORDS SUMMARY | 2023-12-25 18:47 | XMS_ITS | Encounter Summary ---
[place] [address] Care Team Providers Care Mechanical Systems Designer Name Role Phone Didier Romero MD Primary Care Provider + Encounter Details Date Type Department Care Team (Late st Contact Info) Description 07/26/2021 Telephone [place] [phone] Courtney Clifton RN Social History Tobacco Use Types Packs/Day [...] AM EDT Office Visit Dermatology at [address] [phone] Jake Galvez MD [address] [facility] [place] [address] documented as of this encounter Visit Diagnoses Not on filedocumented in this encounter Care Teams Mechanical Systems Designer Relationship Specialty Start Date End Date Didier Romero MD [address] [place] [address] PCP - General Family Medicine 01/11/17 documented as of this encounter
--- OUTSIDE RECORDS SUMMARY | 2023-12-25 18:47 | XMS_ITS | Encounter Summary ---
[place] [address] Care Team Providers Care Engine Setter Name Role Phone Didier Romero MD Primary Care Provider + Reason for Visit * Reason Comments Follow-up Skin Check Encounter Details Date Type Department Care Team (Late st Contact Info) Description 07/05/2023 8:15 AM EST Office Visit Dermatology at [address] [phone] Jake Galvez MD [address] [place] [address] DERMATOLOGY [place], [place] [phone] History of malignant melanoma; AK (actinic keratosis); History of SCC (squamous cell carcinoma) of skin Social History Tobacco Use Types Packs/Day Years [...] Progress Notes * Jake Galvez MD - 07/05/2023 8:15 AM EST Problem: 1. 6-month skin checkup 2. 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 Status post 5-FU applications to bilateral forearms 4. History of malignant melanoma, 1 mm Breslow depth, July 2011 diagnosed in [place], rightinferior axillary vault area, with a negative sentinel lymph node biopsy 5. 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 History of lichen simplex left medial calf and right arm controled with clobetasol cream prn 7. Atypical intraepidermal melanocytic proliferation, suspicious for evolving melanoma in situ, lentigo melanoma maligna type, left lateral neck July 2022. Bruno follows up for 6-month skin checkup. He has been doing well. He has not noted any new skin lesions of concern. Patient lives in [facility]. Physical examination reveals a pleasant 63-year-old gentleman who has a benign examination of the head and the neck the chest the back the hands arms forearms thighs and calves. He has no evidence ofrecurrent tumor on the left lateral neck. He has no cervical or axillary adenopathy. He has an actinic keratosis on the right dorsal foot. Assessment plan: History of malignant melanoma and history of atypical intraepidermal 1. No evidence of recurrence of other sites 2. Patient reassured 3. Continue sun avoidance precautions. 4. Return to clinic in 6 months for repeat check. Actinic keratosis right dorsal foot 1. LN 2 x 2 plan to single site CC: Didier Romero MD documented in this encounter Plan of Treatment Upcoming Encounters Date Type Department Care Team (Late st Contact Info) Description 01/03/2024 8:15 AM EDT Office Visit Dermatology at [address] [phone] Jake Galvez MD [address] [place] [address] [place] [address] documented as of this encounter Visit Diagnoses Diagnosis History of malignant melanoma Personal history of malignant melanoma of skin AK (actinic keratosis) Actinic keratosis History of SCC (squamous cell carcinoma) of skin Personal history of other malignant neoplasm of skin documented in this encounter Care Teams Engine Setter Relationship Specialty Start Date End Date Didier Romero MD [facility] [place] [address] PCP - General Family Medicine 01/11/17 documented as of this encounter
--- OUTSIDE RECORDS SUMMARY | 2023-12-25 18:47 | XMS_ITS | Encounter Summary ---
[place] [address] Care Team Providers Care Sole Tier Name Role Phone Didier Romero MD Primary Care Provider + Encounter Details Date Type Department Care Team (Latest Contact Info) Description 07/20/2022 Travel Social History Tobacco Use Types Packs/Day [...] 8:15 AM EDT Office Visit Dermatology at [address] [place] [phone] Jake Galvez MD [address] [place] [address] [place] [address] documented as of this encounter Visit Diagnoses Not on filedocumented in this encounter Care Teams Sole Tier Relationship Specialty Start Date End Date Didier Romero MD [address] [place] [address] PCP - General Family Medicine 01/11/17 documented as of this encounter
--- OUTSIDE RECORDS SUMMARY | 2023-12-25 18:47 | XMS_ITS | Encounter Summary ---
Author Organization Formerly [facility] [place] [address] Care Team Providers Care Safety Scientist Name Role Phone Didier Romero MD Primary Care Provider + Encounter Details Date Type Department Care Team (Latest Contact Info) Description 07/03/2022 9:09 PM EST - 07/03/2022 11:59 PM [facility] [place] [address] Discharge Disposition: Home Social History Tobacco Use Types Packs/Day Years [...] on file documented as of this encounter Medications at Time of Discharge Medication Sig Dispensed Refills Start Date End Date isosorbide mononitrate CR (Imdur) 30 mg Tablet Sustained Release 24 hr Take 30 mg by mouth daily. 10/22/2021 UNABLE TO FIND 2,500 mcg daily. Med Name: Vitamin b12 BD Luer-Kg Syringe 3 mL 22 gauge x 1 Syringe USE TWICE MONTHLY 09/23/2020 testosterone cypionate (DepoTESTOSTERONE Cypionate) (200mg/mL) injection Inject 100 mg into the muscle every 14 days. flu vac [id number] 36mos up,PF, (Afluria Qd 2019-,3yr up,,PF,) 60 [...] capsule Take 20 mg by mouth daily. Guaiatussin AC 10-100 mg/5 mL Liquid TAKE 10 ML EVERY 4 HOURS NEEDED 03/08/2022 07/05/2023 hydroCHLOROthiazide (Hydrodiuril) 25 mg Tablet 09/20/2021 01/01/2023 atorvastatin (Lipitor) 20 mg Tablet Take 20 mg by mouth nightly. 10/22/2021 01/01/2023 LORazepam (Ativan) 1 mg Tablet 12/22/2021 01/01/2023 venlafaxine XR (Effexor-XR) 75 mg Capsule, Sust. Release 24 hr Take 75 mg by mouth daily. TAKE WITH FOOD 10/24/2021 07/05/2023 NELLIE'S WORT ORAL Take by mouth. 01/01 UNKNOWN TO PATIENTIndications:L-t heanine Indications: L-theanine 06/2023 allopurinol (ZYLOPRIM) 300 mg tablet Take 300 mg by mouth daily. 01/01/2023 documented as of this encounter Plan of Treatment Upcoming Encounters Date Type Department Care Team (Late st Contact Info) Description 01/03/2024 8:15 AM EDT Office Visit Dermatology at [address] [place] [address] Jake Galvez MD [address] [facility] [place] [address] documented as of this encounter Procedures Procedure Name Priority Date/Time Associated Diagnosis Comments SURGICAL PATHOLOGY REPORT Routine 07/03/2022 10:45 AM EST documented in this encounter Results * Surgical Pathology Report (07/03/2022 10:45 AM EST) FINAL DIAGNOSIS (AP) [id number] ? Location: [facility] The signing pathologist has (i) examined the relevant preparation(s) for the specimen(s) and (ii) rendered or confirmed the diagnosis(es). . 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 of Pathology, [place] [address] Email Developer: Rosa Murdock MD, FCAP, ??CLIA Certificate: [id number] ADDITIONAL STUDIES Interpretation of multiple deeper leveled slide sections and a Melan A stain confirms the diagnosis above. Comparison of Sox-10 and PRAME stains reveals that several of the lesional melanocytes have significant expression of PRAME. The dermatology note and select medical history have been reviewed; the size of the lesion, as measured clinically, is not available to us. The reported 10 mm size of the lesion, per the gross examination report, is noted. SPECIMEN(S) SUBMITTED A - L lateral neck, skin shave biopsy (_) Referring Identifier: ?(not provided) CLINICAL INFORMATION Atypical pigmented patch. Solar lentigo. Rule out MM. SPECIMEN PROCESSING A - Labeled/Fixative: Patient demographics, formalin. Quantity/Size: ??Single, 1.1 x 0.8 x 0.1 cm. Tissue Description: Valenzuela-white shave with a 1.0 x 0.8 cm valdivia-brown, ill-defined macule. Sections/Processi ng: Inked, trisected and entirely submitted in 1 cassette labeled A1. ??jnr 07/11/2022 2:22 PM EST [facility] 07/03/2022 10:4 5 AM EST Jake Galvez MD PATHOLOGY/CYTOLOGY O RDERABLES [facility] [place] [address] documented in this encounter Visit Diagnoses Not on filedocumented in this encounter Care Teams Safety Scientist Relationship Specialty Start Date End Date Didier Romero MD [address] [place] [address] PCP - General Family Medicine 01/11/17 documented as of this encounter
--- OUTSIDE RECORDS SUMMARY | 2023-12-25 18:47 | XMS_ITS | Encounter Summary ---
Author Organization [facility] [place] [address] Care Team Providers Care Wood Processing Worker Name Role Phone Didier Romero MD Primary Care Provider + Encounter Details Date Type Department Care Team (Latest Contact Info) Description 07/20/2022 8:50 PM EST - 07/20/2022 11:59 PM [facility] [place] [address] Discharge Disposition: Home Social History Tobacco Use [...] the muscle every 14 days. flu vac [id number] 36mos up,PF, (Afluria Qd 2019-,3yr up,,PF,) 60 [...] 8:15 AM EDT Office Visit Dermatology at [address] [place] [address] Jake Galvez MD [address] [facility] [place] [address] documented as of this encounter Procedures Procedure Name Priority Date/Time Associated Diagnosis Comments SURGICAL PATHOLOGY REPORT Routine 07/20/2022 9:00 AM EST documented in this encounter Results * Surgical Pathology Report (07/20/2022 9:00 AM EST) FINAL DIAGNOSIS (AP) [id number] ? Location: [facility] The signing pathologist has (i) examined the relevant preparation(s) for the specimen(s) and (ii) rendered or confirmed the diagnosis(es). . ?Surgical Pathology DIAGNOSIS Left lateral neck, skin excision: - Increase of enlarged atypical junctional melanocytes adjacent to healing biopsy site, ??margins negative - Increase of junctional melanocytes overlying a remote scar, ? extending to the peripheral specimen margin (see Discussion) Electronically signed by: ?Arvind HOOD, PhD, [facility] Verified: ??08/03/2022 9:48 ?? Dermatopathologist Performed at: ??-[facility] Dept. of Pathology, [place] [address] Nuclear Supervising Operator: Rosa Murdock MD, FCAP, ??CLIA Certificate: [id number] DISCUSSION Slides of the patient's prior biopsy ([id number]) have been reviewed. ?Focal increase of enlarged atypical junctional melanocytes adjacent to the healing biopsy site is seen in the current specimen. This could represent focal residual lesion or reactive melanocytic hyperplasia overlying scar. Specimen margins are not involved. In addition, there is an increase of junctional melanocytes overlying a remote scar, present at the peripheral specimen margin. Some of these melanocytes contain macromelanosomes. Although PRAME immunostain shows positivity in these melanocytes, in the absence of confluence growth pattern or marked cytologic atypia, this is insufficient for the diagnosis of ?? melanoma in situ. Close clinical follow ?? up is recommended with additional sampling or complete removal if there is any residual or recurrent lesion. ?? This case was also reviewed by an additional intradepartmental dermatopathologist for consensus diagnosis. ADDITIONAL STUDIES Immunohistochemistry Studies: Formalin-fixed, paraffin-embedded tissue sections are studied using the polymer technique with appropriate positive and negative controls. ?These IHC studies provide the pathologist with adjunctive diagnostic information. Antibody specificity has been verified by testing antibodies on a series of in-house tissues with known immunohistochemical performance characteristics. The clinical interpretation of any antibody positive staining or its absence is evaluated within the context of clinical presentation, morphology, histopathological criteria and other diagnostic tests. Block ? Antibody ?Result (Positive/Negative) A2 ? PRAME red ?Highlights junctional melanocytes SPECIMEN(S) SUBMITTED A - L lateral neck, skin excision () Referring Identifier: ?(not provided) CLINICAL INFORMATION Atypical melanocytic proliferation for excision, [id number]. Scar SPECIMEN PROCESSING A - Labeled/Fixative: Patient demographics, formalin. Quantity/Size: ??Single, 3.1 x 1.4 x 0.4 cm. . SPECIMEN PROCESSING Tissue Description: Excision of valdivia-white skin with an eccentric 0.8 x 0.5 cm recent, crusted previous biopsy site Sections/Processing: Inked and entirely submitted in 4 cassettes as follows: ?A1: ??tips ?A2-A4: ??body ??pps 08/03/2022 9:48 AM EST [facility] 07/20/2022 9:00 AM EST Jake Galvez MD PATHOLOGY/CYTOLOGY O RDERAKHLOE [facility] [place] [address] documented in this encounter Visit Diagnoses Not on filedocumented in this encounter Care Teams Wood Processing Worker Relationship Specialty Start Date End Date Didier Romero MD [address] [place] [address] PCP - General Family Medicine 01/11/17 documented as of this encounter
--- OUTSIDE RECORDS SUMMARY | 2023-12-25 18:47 | XMS_ITS | Encounter Summary ---
[place] [address] Care Team Providers Care Environmental Field Professional Name Role Phone Didier Romero MD Primary Care Provider + Encounter Details Date Type Department Care Team (Late st Contact Info) Description 09/07/2021 Telephone [facility] [place] [phone] Shelby Banegas Social History Tobacco Use Types Packs/Day Years [...] encounter Miscellaneous Notes * Telephone Encounter - Shelby Banegas - 09/07/2021 11:29 AM EDT Outgoing call was placed after receiving a notification from [employer], stating that [employer] is denying the request for authorization for his upcoming 09/26/21 repeat Left sided RFA. Patient had proceeded with a repeat Right sided RFA on 08/03/21, which [employer] approved authorization for. Patient was advised of the denial and immediately reported that he would get his shotgun shell loading machine operator involved right away. I asked that he just keep us updated with his shotgun shell loading machine operator's progress in overturning the denial but I suspect we will be notified via [employer] as well. Patient was thanked for his assistance with this and call ended. documented in this encounter Plan of Treatment Upcoming Encounters Date Type Department Care Team (Late st Contact Info) Description 01/03/2024 8:15 AM EDT Office Visit Dermatology at [place] [address] [facility] [place] [address] Jake Galvez MD [address] [facility] [place] [address] documented as of this encounter Visit Diagnoses Not on filedocumented in this encounter Care Teams Environmental Field Professional Relationship Specialty Start Date End Date Didier Romero MD [place] [address] PCP - General Family Medicine 01/11/17 documented as of this encounter
--- OUTSIDE RECORDS SUMMARY | 2023-12-25 18:47 | XMS_ITS | Encounter Summary ---
[place] [address] Care Team Providers Care Custom Leather Products Maker Name Role Phone Didier Romero MD Primary Care Provider + Reason for Visit * Reason Comments Suture / Staple Removal Encounter Details Date Type Department Care Team (Late st Contact Info) Description 07/28/2022 9:00 AM EST Office Visit Dermatology at [address] [address] Jake Galvez MD [address] [facility] DER[facility] [place], [place] [id number] Visit for suture removal Social History Tobacco Use Types Packs/Day Years [...] Progress Notes * Jake Galvez MD - 07/28/2022 9:00 AM EST Problem: Follow-up for suture removal and biopsy results Bruno follows up and had an uneventful postoperative course. Physical examination shows excellent healing of the left lateral neck excision site of the atypicalintraepidermal melanocytic proliferation. Assessment plan: Atypical intraepidermal melanocytic proliferation, suspicious for evolving melanoma in situ, lentigo melanoma maligna type. 1. Sutures removed 2. October DC wound care instructions 3. Return to clinic in another 6 months for repeat skin checkup. CC: Didier Romero MD documented in this encounter Plan of Treatment Upcoming Encounters Date Type Department Care Team (Late st Contact Info) Description 01/03/2024 8:15 AM EDT Office Visit Dermatology at [place] [address] [place] [address] Jake Galvez MD [address] [facility] [place] [address] documented as of this encounter Visit Diagnoses Diagnosis Visit for suture removal Encounter for removal of sutures documented in this encounter Care Teams Custom Leather Products Maker Relationship Specialty Start Date End Date Didier Romero MD [address] [place] [address] PCP - General Family Medicine 01/11/17 documented as of this encounter
--- OUTSIDE RECORDS SUMMARY | 2023-12-25 18:47 | XMS_ITS | Encounter Summary ---
Author Organization [facility] Address [facility] [place] [address] Care Team Providers Care System Safety Engineer Name Role Phone Didier Romero MD Primary Care Provider + Reason for Visit * Reason Comments Follow-up Head and neck pain Encounter Details Date Type Department Care Team (Late st Contact Info) Description 07/20/2021 9:20 AM EST Office Visit [place] [address] Emerson Ernandez MD [facility] [address] Cervical spondylosis (Primary Dx); Cervicalgia Social History Tobacco Use Types Packs/Day Years [...] Sign Reading Time Taken Comments Blood Pressure 154/82 07/20/2021 9:15 AM EST Pulse 91 07/20/2021 9:15 AM EST Temperature - - Respiratory Rate - - Oxygen Saturation 96% 07/20/2021 9:15 AM EST Inhaled Oxygen Concentration - - Weight 88.9 kg (196 lb) 07/20/2021 9:15 AM EST Height 177.8 cm (5' 10) 07/20/2021 9:15 AM EST Body Mass Index 28.12 07/20/2021 9:15 AM EST documented in this encounter Progress Notes * Emerson Ernandez MD - 07/20/2021 9:20 AM EST [facility] - Follow Up Note Date of visit: 07/20/21 : 1960 CC: Chief Complaint Patient presents with ??? Follow-up Head and neck pain HPI: Grayson Dodd III is a 61 y.o. year old male who presents to the pain clinic today for follow up in regards to returned right sided neck pain. He had right sided C3, C4, C5 and C6 MB RFA in 07/2020 with 80% improvement for almost 10 months. Pain gradually returned. PRIOR INTERVENTIONS: R C3, C4, C5 and C6 MB RFA 07/26/2020 L C3, C4, C5 and C6 MB RFA 12/16/2020 CAUDAL NABIL 02/03/2021 Currently the patient's pain is described as involving the right cervical paraspinous area. Today, the patient rates the pain a 6/10 and ranges from a 4 to 10/10. The pain doesn't radiate to his arm. It is worse with driving and activity. He denies any weakness, numbness or bowel/ bladder dysfunction. PMH/PSH: Patient Active Problem List Diagnosis Code ??? CIS - Central hypogonadism ??? CIS - Diabetes type II, good control ??? CIS - Gout ??? CIS - HTN ??? CIS - Obesity ??? Type II or unspecified type diabetes mellitus without mention of complication, not stated as uncontrolled E11.9 ??? 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 Wrist pain M25.539 ??? History of malignant melanoma Z85.820 ??? History of SCC (squamous cell carcinoma) of skin Z85.828 ??? Viral warts B07.9 ??? Eczema L30.9 ??? Spondylosis of cervical region without myelopathy or radiculopathy M47.812 ??? Radiculopathy of lumbosacral region M54.17 Past Medical History: Diagnosis Date ??? Gout ??? Hx of hypogonadism ??? Hypertension ??? Type 2 diabetes mellitus Past Surgical History: Procedure Laterality Date ??? CARPAL TUNNEL RELEASE Right carpal tunnel release, FCR release, fasciotomy small and ring fingers ??? HERNIA REPAIR ??? ROTATOR CUFF REPAIR left shoulder x 2 ??? SPINAL FUSION FAMILY HISTORY: No family history on file. [...] Social History Narrative ??? Not on file MEDICATIONS: Current Outpatient Medications: ??? NELLIE'S WORT ORAL, Take by mouth., Disp: , Rfl: ??? UNKNOWN TO PATIENT, Indications: L-theanine, Disp: , Rfl: ??? UNABLE TO FIND, 2,500 mcg daily. Med Name: Vitamin b12, Disp: , Rfl: ??? BD Luer-Kg Syringe 3 mL 22 gauge x 1 Syringe, USE TWICE MONTHLY, Disp: , Rfl: ??? testosterone cypionate (DepoTESTOSTERONE Cypionate) (200mg/mL) injection, Inject 100 mg into the muscle every 14 days., Disp: , Rfl: ??? BD SafetyGlide Needle 25 x 5/8 Needle, EVERY 2 WEEKS WITH TESTOSTERONE, Disp: , Rfl: ??? BD SafetyGlide Needle 25 gauge x 1 Needle, , Disp: , Rfl: ??? irbesartan (AVAPRO) 75 mg Tablet, daily., Disp: , Rfl: ??? cyanocobalamin, vitamin B-12, 1,000 mcg/mL Solution, Once a Month, Disp: , Rfl: 0 ??? FLOVENT HFA 220 mcg/actuation HFA Aerosol Inhaler, as needed., Disp: , Rfl: ??? folic acid (FOLVITE) 1 mg Tablet, daily., Disp: , Rfl: ??? meTOPROLOL succinate (TOPROL-XL) 25 mg Tablet Sustained Release 24 hr, daily., Disp: , Rfl: ??? allopurinol (ZYLOPRIM) 300 mg tablet, Take 300 mg by mouth daily., Disp: , Rfl: ??? aspirin 81 mg EC tablet, Take 81 mg by mouth daily., Disp: , Rfl: ??? albuterol-ipratropium (COMBIVENT) 18-103 mcg/actuation Aerosol, Inhale 2 puffs into the lungs every 6 hours as needed., Disp: , Rfl: ??? omeprazole (PRILOSEC) 20 mg capsule, Take 20 mg by mouth daily., Disp: , Rfl: ??? flu vac [id number] 36mos up,PF, (Afluria Qd 2019-,3yr up,,PF,) 60 mcg (15 mcg x 4)/0.5 mL Syringe, Afluria Qd 2019- (36 mos up)(PF)60 mcg (15 mcg x4)/0.5 mL IM syringe ADM 0.5ML IM UTD, Disp: , Rfl: ALLERGIES: Allergies Allergen Reactions ??? Dilaudid [Hydromorphone (Pf)] Other (See Comments) Lowers blood pressure ??? Chlorhexidine Gluconate Other reaction(s): Rash & Burning ??? Oxycodone-Acetaminophen Other reaction(s): Hallucinations ??? Pollen Extracts ??? Telfa [Adhesive Bandage] Rash ROS: Review of Systems Positive for above mentioned musculoskeletal and neurological findings on 14 point system review. PHYSICAL EXAM: BP 154/82 Pulse 91 Ht 177.8 cm (5' 10) Wt 88.9 kg (196 lb) SpO2 96% BMI 28.12 kg/m?? Physical Exam Alert and oriented. VSS ?? Musculoskeletal exam: Strength intact. SIJ provocation (-) Tenderness to palpation at B cervical paraspinous muscles R>L R Spurling (+) ?? Neurological exam: On neurological exam, 5/5 strength at bilateral upper and lower extremities SLR (-) DTR's intact at B upper and lower extremities TESTS / IMAGING: ?? From Dr. Lanier's note dated 05/18/2020. Cervical MRI, 03/01/2020: There is straightening of the normal cervical lordosis. ??Mild disc osteophyte complexes are present at C2-C3 and C5-C6. ??Mild to moderate disc-osteophyte complexes noted at C3-C4. ??There is a prominent disc osteophyte complex that is mainly anterior at C6-C7 and is associated with disc space narrowing and degenerative endplate change at that level. ??Intervertebral foraminal narrowing is notedbilaterally at C6-C7. ??No oblique cuts are available. ??There is no evidence of central stenosis. ?? Electrodiagnostic testing 03/09/2020. ?? The study showed no evidence of acute or chronic left cervical radiculopathy. ??The patient demonstrated mild prolongation of bilateral median and ulnar F- wave latencies and prolonged peak sensory latencies and decreased sensory velocities in bilateral median and ulnar distributions. DIAGNOSIS: 1. Cervical spondylosis SURGICAL CASE REQUEST: DESTRUCT BY LYTIC AGENT, FACET NERVE(S), W/IMAGING; CX OR THX, EA ADD (WRVU 1.32), DESTRUCT BY LYTIC AGNT, FACET JT NERVE(S), W/IMAGING; CX OR THX, SNGL(WRVU 3.84) 2. Cervicalgia SURGICAL CASE REQUEST: DESTRUCT BY LYTIC AGENT, FACET NERVE(S), W/IMAGING; CX OR THX, EA ADD (WRVU 1.32), DESTRUCT BY LYTIC AGNT, FACET JT NERVE(S), W/IMAGING; CX OR THX, SNGL (WRVU 3.84) ASSESSMENT: 61 year old M with a h/o work related injury with sustained neck pain, cervical spondylosis, who has done well with prior R sided cervical MBBs for over 10 months, now returns with worsening pain, that is axial and consistent with facet arthropathy and cervical spondylosis. PLAN: Injection: He will RTC for R C3,C4, C5 and C6 MB RFA Risks, benefits, and alternatives to the procedure were discussed with the patient at length to include use of: anatomical models, and imaging. Procedure: Cervical Radiofrequency Laterality: Right Levels: C3, C4, C5 and C6 Pertinent Medical History - h/o Thrombocytopenia/bleeding tendency/platelet dysfunction: no - h/o Liver disease/abnormal liver function: ??no - h/o Chronic kidney disease (CKD)/abnormal kidney function: ??no - Patient on dialysis? no MARTA Risk Stratification - Intermediate Is patient taking an anticoagulant? No Is patient taking any NSAIDs/Nutritional Supplements? Yes, patient does not need to hold Is patient taking Aspirin? Yes, patient does not need to hold Is patient taking Antibiotics? No Has patient been on greater than 40mg of steroid 14 days or longer or has patient had a steroid injection within the last two weeks? No Does patient have allergies to contrast/local anesthetic/steroid? No Labs? N/A Imaging? In Chart Does patient need IV? yes Does patient need sedation? yes Does patient need NPO guidelines? yes Special Instructions - Cervical Pillow Follow up post procedure - Telehealth Visit 4-6 weeks with Marco A Ernandez MD JUSTIFICATION OF MEDICAL NECESSITY Patient's pain has been present for >6 weeks and is an average of >6/10 on 0-10 scale and/or pain interferes with ADLs. Conservative management includes: -Medications: acetaminophen, NSAIDS, neuropathics, muscle relaxants -Physical Therapy: Completed 6 week course in the last 6 months -Continues clinician directed home exercise program including exercises learned in PT. Previous R cervical MB RFA on 07/26/2020 provided 80% relief for 10 months. During that time patient able to participate in ADLs, had improved sleep, and improved mobility. Patient reports functionalimprovement of at least 50%. Medication: Continue current meds Imaging: Reviewed: Pertinent imaging was reviewed with the patient in detail. Physical therapy/home exercise plan: Continue HEP Follow up: 4-6 weeks after R cervical MB RFA Emerson Ernandez MD [facility] [place] [address] / CC: Didier Romero MD [facility] [place] [address] documented in this encounter Miscellaneous Notes * Addendum Note - Emerson Ernandez MD - 07/20/2021 9:20 AM ESTAddended by: EMERSON ERNANDEZ on: 07/28/2021 09:23 PM Modules accepted: Level of Service documented in this encounter Plan of Treatment Upcoming Encounters Date Type Department Care Team (Late st Contact Info) Description 01/03/2024 8:15 AM EDT Office Visit Dermatology at [place] [address] [place] [address] Jake Galvez MD [address] [facility] [address] documented as of this encounter Visit Diagnoses Diagnosis Cervical spondylosis- Primary Cervical spondylosis without myelopathy Cervicalgia documented in this encounter Care Teams System Safety Engineer Relationship Specialty Start Date End Date Didier Romero MD [facility] [place] [address] PCP - General Family Medicine 01/11/17 documented as of this encounter
--- OUTSIDE RECORDS SUMMARY | 2023-12-25 18:47 | XMS_ITS | Encounter Summary ---
Author Organization Formerly [facility] [place] [address] Care Team Providers Care Bench Technician Name Role Phone Didier Romero MD Primary Care Provider + Reason for Visit * Auth/Cert Specialty Diagnoses / Procedures Referred By Contac t Referred To Contact Diagnoses Cervical spondylosis cervical spondylosis Procedures PRO DSTR PARAVERTEBRAL FCT JNT NRVES CERVICAL OR THORACIC ADDL PRO DSTR PARAVERTEBRAL FCT JNT NRVES CERVICAL OR THORACIC SINGLE DESTRUCT BY LYTIC AGENT, FACET NERVE(S), W/IMAGING; CX OR THX, EA ADD (WRVU 1.32) DESTRUCT BY LYTIC AGNT, FACET JT NERVE(S), W/IMAGING; CX OR THX, SNGL (WRVU 3.84) Referral ID Status Reason Start Date Expiration Date Visits Re quested Visits Authorized [id number] 1 1 Encounter Details Date Type Department Care Team (Late st Contact Info) Description 11/07/2021 8:00 AM EDT Ancillary [place] [address] Emerson Chand MD [facility] [place] [place] [address] Social History Tobacco Use Types Packs/Day Years [...] 8:15 AM EDT Office Visit Dermatology at [place] [address] [place] [address] Jake Galvez MD [address] [place] [address] documented as of this encounter Procedures Procedure Name Priority Date/Time Associated Diagnosis Comments FILM LIBRARY STORAGE ONLY PAIN CLINIC C ARM Routine 11/07/2021 12:20 PM EDT documented in this encounter Results * Film Library- Storage Only pain Clinic C-Arm (11/07/2021 12:20 PM EDT) Narrative RAD - 11/07/2021 12:20 PM EDT See PACS for result report. Emerson Chand MD G FILM LIBRARY ORD ERABLES Performing Organization Address City/State/[facility] Co de Phone Number [place], [place] documented in this encounter Visit Diagnoses Not on filedocumented in this encounter Care Teams Bench Technician Relationship Specialty Start Date End Date Didier Romero MD [address] [place] [address] PCP - General Family Medicine 01/11/17 documented as of this encounter
--- OUTSIDE RECORDS SUMMARY | 2023-12-25 18:47 | XMS_ITS | Encounter Summary ---
[place] [address] Care Team Providers Care Marketing Intelligence Manager Name Role Phone Didier Romero MD Primary Care Provider + Encounter Details Date Type Department Care Team (Late st Contact Info) Description 04/15/2021 Ancillary Procedure [place] [phone] Didier Romero MD [facility] [address] [place], [place] [address] Social History Tobacco Use Types Packs/Day Years [...] 8:15 AM EDT Office Visit Dermatology at [place] [address] [facility] [place] [address] Jake Galvez MD [address] [place] [address] documented as of this encounter Procedures Procedure Name Priority Date/Time Associated Diagnosis Comments FILM LIBRARY STORAGE ONLY CT SPINE Routine 04/15/2021 12:00 AM EST documented in this encounter Results * Film Library- Storage Only CT Spine (04/15/2021 12:00 AM EST) Narrative [facility] - 04/19/2021 12:40 PM EST This exam is auto-finalizing. It's purpose is for storage only. Didier Romero MD IM FILM LIBRARY ORDERABLES Performing Organization Address City/State/[facility] Co de Phone Number [place], [place] documented in this encounter Visit Diagnoses Not on filedocumented in this encounter Care Teams Marketing Intelligence Manager Relationship Specialty Start Date End Date Didier Romero MD [facility] [place] [address] PCP - General Family Medicine 01/11/17 documented as of this encounter
--- OUTSIDE RECORDS SUMMARY | 2023-12-25 18:47 | XMS_ITS | Encounter Summary ---
[place] [address] Care Team Providers Care Psychology Instructor Name Role Phone Didier Romero MD Primary Care Provider + Reason for Referral * Consultation (Routine) - Closed Specialty Diagnoses / Procedures Referred By Contac t Referred To Contact [facility] Diagnoses Cervicalgia Neck pain/? imaging Didier Romero MD [address] [place] [address] [facility] [place] [address] Referral ID Status Reason Start Date Expiration Date V isits Requested Visits Authorized [id number] Closed Evaluate and Treat 04/26/2022 04/26/2023 1 1 Encounter Details Date Type Department Care Team (Late st Contact Info) Description 04/26/2022 Transcribe Orders eDH Incoming Referrals [phone] Didier Romero MD [address] [place] [address] Cervicalgia Social History Tobacco Use Types Packs/Day [...] 8:15 AM EDT Office Visit Dermatology at [place] [address] [place] [address] Jake Galvez MD [address] [facility] [place] [address] Scheduled Referrals Name Type Priority Associated Diagnoses Orde r Schedule Referral to [facility] and Spine Center (Internal only) Outpatient Referral Routine Cervicalgia Ordered: 04/26/2022 documented as of this encounter Visit Diagnoses Diagnosis Cervicalgia documented in this encounter Care Teams Psychology Instructor Relationship Specialty Start Date End Date Didier Romero MD [address] [place] [address] PCP - General Family Medicine 01/11/17 documented as of this encounter
--- OUTSIDE RECORDS SUMMARY | 2023-12-25 18:47 | XMS_ITS | Encounter Summary ---
[place] [address] Care Team Providers Care Trouble Locator Test Desk Name Role Phone Didier Romero MD Primary Care Provider + Reason for Visit * Reason Comments Skin Check Encounter Details Date Type Department Care Team (Late st Contact Info) Description 07/03/2022 10:00 AM EST Office Visit Dermatology at [address] [address] Jake Galvez MD [address] [facility] [place] [address] [place] (actinic keratosis); History of SCC (squamous [...] Progress Notes * Jake Galvez MD - 07/03/2022 10:00 AM EST Problem: 1.?6-month skin checkup 2. 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 Spent 6-month since I saw him last. He has noted 1 lesion on the left anterior shoulder. Physical examination reveals a pleasant 62-year-old gentleman who has an atypical pigmented patch on his left lateral neck. He has no evidence of recurrent pigmentation at the prior melanoma excisionsite from 2011 as noted above. He has very fair skin and moderate solar damage over the exam skin of the face the neck the chest the back the hands on forearms thighs and calves. He has an erythematous patch on the left anterior shoulder concerning for possible actinic keratosis Assessment plan: Possible solar lentigo left lateral neck, rule out malignant melanoma 1. After obtaining informed patient consent, the site was anesthetized and a shave biopsy was obtained from the inferior portion of this lesion 2. Wound care instructions and supplies given 3. We will notify patient of biopsy results in 1 week. Actinic keratosis left anterior shoulder 1. Today site was treated with LN 2 x 2. History of prior melanoma and none melanoma cutaneous malignancies 1. No evidence of recurrence or prior treatment sites 2. Continue our every 6 month follow-ups for now. CC: Didier Romero MD documented in this encounter Plan of Treatment Upcoming Encounters Date Type Department Care Team (Late st Contact Info) Description 01/03/2024 8:15 AM EDT Office Visit Dermatology at [place] [address] [facility] [place] [address] Jake Galvez MD [address] [facility] [place] [address] documented as of this encounter Visit Diagnoses Diagnosis AK (actinic keratosis) Actinic keratosis History of SCC (squamous cell carcinoma) of skin Personal history of other malignant neoplasm of skin History of malignant melanoma Personal history of malignant melanoma of skin documented in this encounter Care Teams Trouble Locator Test Desk Relationship Specialty Start Date End Date Didier Romero MD [address] [place] [address] PCP - General Family Medicine 01/11/17 documented as of this encounter
--- OUTSIDE RECORDS SUMMARY | 2023-12-25 18:47 | XMS_ITS | Encounter Summary ---
[place] [address] Care Team Providers Care Technical Sales Associate Name Role Phone Didier Romero MD Primary Care Provider + Reason for Visit * Reason Comments Follow-up Encounter Details Date Type Department Care Team (Late st Contact Info) Description 01/01/2023 8:00 AM EDT Office Visit Dermatology at [address] [phone] Jake Galvez MD [address] [facility] DERMATOLOGY [place], [place] [id number] History of malignant melanoma; [place] (actinic keratosis) Social History Tobacco Use Types Packs/Day Years [...] as of this encounter Progress Notes * Jaek Galvez MD - 01/01/2023 8:00 AM EDT Problem: 1. 6-month skin checkup 2. 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 Status post 5-FU applications to bilateral forearms 4. History of malignant melanoma, 1 mm Breslow depth, July 2011 diagnosed in [place], rightinferior axillary vault area, with a negative [...] Bruno follows up for 6-month skin checkup. Physical examination reveals a pleasant 62-year-old gentleman who has a benign examination of the head and the neck the chest the back the hands arms forearms thighs and calves. There is no evidence of recurrent pigmentation at the left lateral neck. He has no excess evidence of recurrent pigmentation on the right inferior axillary vault area either. He has no axillary or cervical adenopathy. He has a single actinic keratosis of the upper central back and 1 in the left lateral cheek Assessment and plan: Actinic keratoses facial and back 1. LN 2 x 2 patient 2/ History of malignant melanoma and history of atypical intraepidermal melanocytic proliferation 1. No evidence of recurrence at either site 2. Patient reassured 3. Continue sun avoidance precautions 4. Return to clinic in another 6 months for repeat check CC: Didier Romero MD documented in this encounter Plan of Treatment Upcoming Encounters Date Type Department Care Team (Late st Contact Info) Description 01/03/2024 8:15 AM EDT Office Visit Dermatology at [address] [address] Jake Galvez MD [address] [place] [address] [place] [address] documented as of this encounter Visit Diagnoses Diagnosis History of malignant melanoma Personal history of malignant melanoma of skin [place] (actinic keratosis) Actinic keratosis documented in this encounter Care Teams Technical Sales Associate Relationship Specialty Start Date End Date Didier Romero MD [address] [place] [address] PCP - General Family Medicine 01/11/17 documented as of this encounter
--- OUTSIDE RECORDS SUMMARY | 2023-12-25 18:47 | XMS_ITS | Encounter Summary ---
[place] [address] Care Team Providers Care Mooner Name Role Phone Didier Romero MD Primary Care Provider + Encounter Details Date Type Department Care Team (Late st Contact Info) Description 09/19/2021 Telephone [facility] [place] [address] Kayley Mckeon, RN Social History Tobacco Use Types Packs/Day [...] encounter Miscellaneous Notes * Telephone Encounter - Kayley Mckeon RN - 09/19/2021 2:16 PM EDT Contact made with patient or c s s representative as identified in contacts 1. Patient instructed to arrive at 07:30 on 09/26/21 with their cdl bulk driver for their cervical RFA procedure. Please plan to spend about 2 [...] the patient has been directed to the [email or web address] hotline for testing prior to their procedure. (route telephone note to: [facility] covid 19 nurse triage with routing comment [...] Was patient instructed to follow NPO guidelines: No if yes, the following instructions were reviewed: a. You may eat up to 6 hours before your procedure b. You may have clear liquids only up to 2 hours before your procedure: water, apple juice, edwina lorenzo, sprite, popsicles, broth, tea or coffee plain or with sweetener, absolutely no dairy products, no milk including soy, oat, almond. Pt states he has had this done four times and does not need anxiolysis. 8. IF RFA: Does patient have a [...] 8:15 AM EDT Office Visit Dermatology at [place] [address] [place] [address] Jake Galvez MD [address] [facility] [place] [address] documented as of this encounter Visit Diagnoses Not on filedocumented in this encounter Care Teams Mooner Relationship Specialty Start Date End Date Didier Romero MD [address] [place] [address] PCP - General Family Medicine 01/11/17 documented as of this encounter
--- OUTSIDE RECORDS SUMMARY | 2023-12-25 18:47 | XMS_ITS | Encounter Summary ---
[place] [address] Care Team Providers Care Order Entry Technician Name Role Phone Didier Romero MD Primary Care Provider + Encounter Details Date Type Department Care Team (Late st Contact Info) Description 06/27/2021 1:45 PM EST Office Visit Dermatology at [address] [phone] Jake Galvez MD [address] [facility] [address] [place] (actinic keratosis); History of SCC (squamous cell carcinoma) of skin; History of malignant melanoma; Eczema, unspecified type Social History Tobacco Use Types Packs/Day Years [...] Progress Notes * Jake Galvez MD - 06/27/2021 1:45 PM EST Problem: 1. ?? 6-month skin checkup 2. 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 He has been doing well. He has not noted any new lesions of concern. Physical examination reveals a pleasant 61-year-old gentleman who has a benign examination of the head the neck chest back hands arms forearms thighs and calves. He has number of actinic's present onthe balding parietal scalp and dorsal forearms and hands. A total of 8 are noted. Otherwise carefulexamination today is benign. There is no evidence of recurrent pigmentation on the right axillary vault. He has type II Curry pigmentation is very fair skin with fair skin and blue eyes. Assessment plan: Actinic keratoses 1. LN 2 x 2 applied each of 8 sites 2. Return to clinic in another 6 months for recheck 3. If doing well at that time may be able to space out to once yearly visits. History of malignant melanoma and of nonmelanoma cutaneous malignancies 1. No evidence of recurrence at previously treated sites. CC: Didier Romero MD documented in this encounter Plan of Treatment Upcoming Encounters Date Type Department Care Team (Late st Contact Info) Description 01/03/2024 8:15 AM EDT Office Visit Dermatology at [address] [address] Jake Galvez MD [address] [facility] [place] [address] documented as of this encounter Visit Diagnoses Diagnosis [place] (actinic keratosis) Actinic keratosis History of SCC (squamous cell carcinoma) of skin Personal history of other malignant neoplasm of skin History of malignant melanoma Personal history of malignant melanoma of skin Eczema, unspecified type documented in this encounter Care Teams Order Entry Technician Relationship Specialty Start Date End Date Didier Romero MD [address] [place] [address] PCP - General Family Medicine 01/11/17 documented as of this encounter
--- OUTSIDE RECORDS SUMMARY | 2023-12-25 18:47 | XMS_ITS | Encounter Summary ---
[place] [address] Care Team Providers Care Tearer Name Role Phone Didier Romero MD Primary Care Provider + Reason for Referral * Diagnostic Test (Routine) - Closed Specialty Diagnoses / Procedures Referred By Contac t Referred To Contact Radiology Diagnoses Spondylolisthesis, lumbar region Procedures CT Guided Injection SI Joint Magnus Tidwell PA [address] [place] [address] [facility] [place] [address] Referral ID Status Reason Start Date Expiration Date V isits Requested Visits Authorized [id number] Closed Specialty Service Requested 10/11/2021 10/11/2021 1 1 Reason for Visit * Diagnostic Test (Routine) - Closed Specialty Diagnoses / Procedures Referred By Contac t Referred To Contact Radiology Diagnoses Spondylolisthesis, lumbar region Procedures CT Guided Injection SI Joint Magnus Tidwell PA [address] [place] [address] [facility] [place] [address] Referral ID Status Reason Start Date Expiration Date V isits Requested Visits Authorized [id number] Closed Specialty Service Requested 10/11/2021 10/11/2021 1 1 Encounter Details Date Type Department Care Team (Latest Contact Info) Description 10/11/2021 8:17 AM EDT - 10/11/2021 11:59 PM EDT Hospital [place] [address] Magnus Tidwell PA [address] [place] [address] Spondylolisthesis, lumbar region Discharge Disposition: Home Social History Tobacco Use [...] the muscle every 14 days. flu vac [id number] 36mos up,PF, (Afluria Qd 2019-,3yr up,,PF,) 61 [...] capsule Take 20 mg by mouth daily. hydroCHLOROthiazide (Hydrodiuril) 25 mg Tablet 09/20/2021 01/01/2023 NELLIE'S WORT ORAL Take by mouth. 01/01 UNKNOWN TO PATIENTIndications:L-t heanine Indications: L-theanine 06/2023 allopurinol (ZYLOPRIM) 300 mg tablet Take 300 mg by mouth daily. 01/01/2023 documented as of this encounter Plan of Treatment Upcoming Encounters Date Type Department Care Team (Late st Contact Info) Description 01/03/2024 8:15 AM EDT Office Visit Dermatology at [place] [address] [place] [address] Jake Galvez MD [address] [place] [address] documented as of this encounter Procedures Procedure Name Priority Date/Time Associated Diagnosis Comments CT GUIDED INJECTION SI JOINT Routine 10/11/2021 10:24 AM EDT Spondylolisthesis, lumbar region documented in this encounter Results * CT Guided Injection SI Joint (10/11/2021 10:24 AM EDT) Anatomical Region Laterality Modality Computed Tomogra phy Impressions 10/11/2021 12:14 PM EDT Left sacroiliac joint injection with CT guidance. I performed the procedure. Thank you for letting us participate in the care of this patient. ??If you are a health care provider and have any questions regarding this report, please contact the number below. ??For patients who have questions please contact the health career technical education instructor that requested your imaging first. ? Electronically signed by: Dannie Bailon MD, [facility] ([phone]), at 10/11/2021 12:14 PM Narrative 10/11/2021 12:14 PM EDT EXAMINATION: CT GUIDED INJECTION SI JOINT ? CLINICAL HISTORY: 1/2 years of low back and left leg pain for diagnostic and therapeutic left SI injection. TECHNIQUE: Patient was informed of the risks and benefits of the procedure and written informed consent obtained. Patient placed prone on the CT fluoroscopic table and a roll hauler CT obtained. Plan created. Overlying skin was prepped and draped in a sterile fashion. 5 cc 1% lidocaine was used for local anesthesia. A 22-gauge spinal needle was advanced into the left sacroiliac joint utilizing intermittent fluoroscopic CT guidance. A mixture of steroid and bupivacaine was then injected. Needle removed. No immediate complications. Patient tolerated the procedure well. COMPARISON: Lumbar spine CT 04/15/2021 FINDINGS: Needle within the left sacroiliac joint. Pain preprocedure: 6 out of 10. Pain postprocedure: 1 out of 10. Procedure Note Dannie Bailon MD - 10/11/2021 EXAMINATION: CT GUIDED INJECTION SI JOINT CLINICAL HISTORY: 1/2 years of low back and left leg pain for diagnosticand therapeutic left SI injection. TECHNIQUE: Patient was informed of the risks and benefits of the procedure andwritten informed consent obtained. Patient placed prone on the CT fluoroscopictable and a roll hauler CT obtained. Plan created. Overlying skin was prepped and drapedin a sterile fashion. 5 cc 1% lidocaine was used for local anesthesia. D11-[id number] spinal needle was advanced into the left sacroiliac joint utilizingintermittent fluoroscopic CT guidance. A mixture of steroid and bupivacaine was then injected. Needle removed. No immediate complications. Patient toleratedthe procedure well. COMPARISON: Lumbar spine CT 04/15/2021 FINDINGS: Needle within the left sacroiliac joint. Pain preprocedure: 6 out of 10. Pain postprocedure: 1 out of 10. IMPRESSION Left sacroiliac joint injection with CT guidance. I performed the procedure. Thank you for letting us participate in the care of this patient. If youare a health care provider and have any questions regarding this report,please contact the number below. For patients who have questions please contactthe health career technical education instructor that requested your imaging first. Magnus LEÓN IMG CT ORDERABLES documented in this encounter Visit Diagnoses Diagnosis Spondylolisthesis, lumbar region documented in this encounter Administered Medications Inactive Administered Medications - up to 3 most recent administrations Medication Order MAR Action Action Date Dose Rate Site BUpivacaine (pf) (Marcaine) (2.5 mg/mL) 0.25% injection 0-10 mg 0-10 mg, Intra-articular, ONCE, 1 dose, On Sun10/11/21 at 0945, Radiology Protocol Medication, Routine Given 10/11/2021 9:00 AM EDT 5 mg dexamethasone (Decadron) injection 0-16 mg 0-16 mg, Intra-articular, ONCE, 1 dose, On Sun10/11/21 at 1045, Radiology Protocol Medication, Routine Given 10/11/2021 9:00 AM EDT 8 mg lidocaine (Xylocaine) 1% (10 mg/mL) injection 0-100 mg 0-100 mg (0-10 mL), Intra-articular, ONCE, 1 dose, On Sun10/11/21 at 0945, Radiology Protocol Medication, Routine Given 10/11/2021 8:55 AM EDT 50 mg documented in this encounter Care Teams Tearer Relationship Specialty Start Date End Date Didier Romero MD [address] [place] [address] PCP - General Family Medicine 01/11/17 documented as of this encounter
--- OUTSIDE RECORDS SUMMARY | 2023-12-25 18:47 | XMS_ITS | Encounter Summary ---
[place] [address] Care Team Providers Care Crozer Operator Name Role Phone Didier Romero MD Primary Care Provider + Reason for Referral * Diagnostic Test (Routine) - Closed Specialty Diagnoses / Procedures Referred By Contac t Referred To Contact Procedures MRI Lumbar Spine wo Contrast (Generic) [facility] [place] [address] Referral ID Status Reason Start Date Expiration Date V isits Requested Visits Authorized [id number] Closed Specialty Service Requested 03/22/2021 09/20/2022 1 1 Encounter Details Date Type Department Care Team (Late Contact Info) Description 03/22/2021 External Results [facility] [place] [address] Provider, Scanning Social History Tobacco Use Types Packs/Day Years [...] Encounters Date Type Department Care Team (Late Contact Info) Description 01/03/2024 8:15 AM EDT Office Visit Dermatology at [address] [place] [address] Jake Galvez MD [address] DERMATOLOGY [place], [place] [id number] documented as of this encounter Procedures Procedure Name Priority Date/Time Associated Diagnosis Comments MRI LUMBAR SPINE WITHOUT CONTRAST Routine 10/08/2020 documented in this encounter Results * MRI Lumbar Spine wo Contrast (Generic) (10/08/2020) Anatomical Region Laterality Modality L-spine Magnetic Resonan ce Historical Provider MD SEVERINO MRI ORDERABLE S documented in this encounter Visit Diagnoses Not on filedocumented in this encounter Care Teams Crozer Operator Relationship Specialty Start Date End Date Didier Romero MD [address] [place] [address] PCP - General Family Medicine 01/11/17 documented as of this encounter
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
--- OUTSIDE RECORDS SUMMARY | 2023-12-25 18:47 | XMS_ITS | Encounter Summary ---
Author Organization [facility] Address [facility] [place] [address] Care Team Providers Care Machine Grainer Name Role Phone Didier Romero MD Primary [...] Expiration Date Visits Re quested Visits Authorized [id number] 1 1 Encounter Details Date Type Department Care Team (Latest Contact Info) Description 08/03/2021 7:23 AM EST - 08/03/2021 9:28 AM [facility] Hospital [place] [phone] Emerson Chand MD [facility] [place] [address] Cervical spondylosis; Cervicalgia Discharge Disposition: Home Social History Tobacco Use [...] Sign Reading Time Taken Comments Blood Pressure 161/113 08/03/2021 9:00 AM EST Pulse 77 08/03/2021 7:53 AM EST Temperature - - Respiratory Rate - - Oxygen Saturation 100% 08/03/2021 9:00 AM EST Inhaled Oxygen Concentration - - Weight 88.9 kg (196 lb) 08/03/2021 7:53 AM EST Height 177.8 cm (5' 10) 08/03/2021 7:53 AM EST Body Mass Index 28.12 08/03/2021 7:53 AM EST documented in this encounter Discharge Instructions * Discharge Instructions* Miah Whittaker Luis - 08/03/2021 7:32 AM EST Pain Management [...] the muscle every 14 days. flu vac [id number] 36mos up,PF, (Afluria Qd 2019-21,3yr up,,PF,) 60 mcg (15 mcg x 4)/0.5 [...] LOCATION: Neck pain. PAIN LEVEL AT REST 11/11 PAST MEDICAL HISTORY: Past Medical History: Diagnosis [...] Carlos Enrique Arroyo MD Pain Medicine Fellow [address] [phone] / [facility] CC: Didier Romero MD [facility] [place] [address] documented in this encounter Miscellaneous Notes * Op Note - Emerson Chand MD - 08/03/2021 8:32 AM EST Pain Management Operative Note Patient Name: Grayson Dodd III : [id number] MR#: [id number] Case Date: 08/03/2021 Surgeon: Surgeon(s) and Role: [...] entire procedure. Emerson Chand MD Attending Physician [facility] [place] [address] / CC: Didier Romero MD [address] [place] [address] documented in this encounter Plan of Treatment Upcoming Encounters Date Type Department Care Team (Late st Contact Info) Description 01/03/2024 8:15 AM EDT Office Visit Dermatology at [address] [phone] Jake Galvez MD [address] [facility] [place] [address] documented as of this encounter Procedures Procedure [...] without myelopathy Cervicalgia documented in this encounter Active and Recently Administered Medications Times are shown in EST. PRN Medication Order 08/01/2021 08/02/2021 08/03/2021 dexamethasone (PF) (Decadron) (10 mg/mL) injection (CANCELED) ONCE PRN, Starting on Sun08/03/21 at 0838, Until Sun08/03/21 at 1128, Intra-Operative (Intra-Procedure), Routine 0838 (Given - Provid er: Carlos Enrique Arroyo MD - Comment: right cervical RFA) lidocaine (pf) (Xylocaine) (10 mg/mL) 1% injection (CANCELED) ONCE PRN, Starting on Sun08/03/21 at 0839, Until Sun08/03/21 at 1128, Intra-Operative (Intra-Procedure), Routine 0839 (Given - Provid er: Carlos Enrique Arroyo MD - Comment: right cervical RFA) lidocaine (pf) (Xylocaine) (20 mg/mL) 2% injection (CANCELED) ONCE PRN, Starting on Sun08/03/21 at 0905, Until Sun08/03/21 at 1128, Intra-Operative (Intra-Procedure), Routine 0905 (Given - Provid er: Carlos Enrique Arroyo MD - Comment: right cervical RFA) documented in this encounter Care Teams Machine Grainer Relationship Specialty Start Date End Date Didier Romero MD [facility] [place] [address] PCP - General Family Medicine 01/11/17 documented as of this encounter
--- OUTSIDE RECORDS SUMMARY | 2023-12-25 18:47 | XMS_ITS | Encounter Summary ---
[place] [address] Care Team Providers Care Adaptive Physical Educator Name Role Phone Didier Romero MD Primary Care Provider + Encounter Details Date Type Department Care Team (Late Contact Info) Description 07/11/2022 Telephone Dermatology at [address] [phone] Jeana Valentin LPN Social History Tobacco Use Types Packs/Day Years [...] encounter Miscellaneous Notes * Telephone Encounter - Jeana Valentin LPN - 07/11/2022 4:30 PM EST 07/03/22 Left lateral neck, skin shave biopsy Bx: Very atypical mole, borderline for cancer Dr. Galvez recommends an excision to remove entire mole. Reviewed biopsy results and Dr. Hill recommendations with patient. He voiced understanding. Excision scheduled for 07/20/22 at 9 AM. documented in this encounter Plan of Treatment Upcoming Encounters Date Type Department Care Team (Late Contact Info) Description 01/03/2024 8:15 AM EDT Office Visit Dermatology at [place] [address] [place] [address] Jake Galvez MD [address] [facility] [place] [address] documented as of this encounter Visit Diagnoses Not on filedocumented in this encounter Care Teams Adaptive Physical Educator Relationship Specialty Start Date End Date Didier Romero MD [address] [place] [phone] PCP - General Family Medicine 01/11/17 documented as of this encounter
--- OUTSIDE RECORDS SUMMARY | 2023-12-25 18:47 | XMS_ITS | Encounter Summary ---
Author Organization [facility] Address [facility] [place] [address] Care Team Providers Care Dress Designer Name Role Phone Didier Romero MD Primary Care Provider + Reason for Visit * Reason Comments Follow-up RFA Encounter Details Date Type Department Care Team (Latest Contact Info) Description 08/31/2021 3:00 PM EDT TH Visit (TeleHealth) [facility] [place] [address] Emerson Chand MD [facility] [place] [address] Cervical spondylosis (Primary Dx); Cervicalgia Social History [...] - - Weight 88.9 kg (196 lb) 08/31/2021 9:37 AM EDT Height 177.8 cm (5' 10) 08/31/2021 9:37 AM EDT Body Mass Index 28.12 08/31/2021 9:37 AM EDT documented in this encounter Progress Notes * Emerson Chand MD - 08/31/2021 3:00 PM EDT TELEHEALTH PAIN CLINIC FOLLOW UP- TELEPHONE Date of Visit: August 31, 2021 I am seeing Mr. Dodd at the request of Didier Romero for my opinion and recommendations regarding his left sided neck pain. Telephone visit due to the SARSCOV2 pandemic. Please see consent below. Patient verbally consents to this telephone visit and understands that this visit may be billed, similar to a clinic office visit. The provider is in [facility], [place], [place], speaking with the patient a the patient's location/addressduring the visit: [address] [facility] [address] [X] Consent: I introduced and identified myself, received verbal consent from the patient to proceed with this video visit and made the patient aware that the same confidentiality and library information technician practices apply. [X] I verified the patient's name and, date of , and as well as payer information ID if available. [X] Patient has no symptoms of fever, significant cough, or shortness of breath. The patient understands not all conditions can be adequately evaluated and treated through a virtual visit and may require an in-person medical evaluation. The patient understands that there may be co-pay /cost for the visit. The history is obtained from the patient, and I have reviewed medical records provided by the referring physician and located in the electronic medical record to fill in gaps in the patient's recollection of events, treatments and outcomes. Chief Complaint: Left neck pain History of Present Illness: Grayson Dodd III is a 61 y.o. male who presents with worsening left sided neck pain. He is s/p R sided C3, C4, C5 and C6 MB RFA on 08/03/2021 with 65-70% improvement. His last Left C3, C4, C5 and C6 MB RFA was on 12/16/2020. Now his left sided neck pain is returning. He denies any new symptoms. His facial tingling continues from the top of his head to the collar bones. These symptoms are unchanged with RFA. Review of Electronic Chart: Today I have also reviewed available medical information in the patient's medical record at [facility] including relevant provider notes, laboratory work, and imaging. Past Medical History: Patient Active Problem List Diagnosis Code ??? [...] Type 2 diabetes mellitus Past Surgical History: Past Surgical History: Procedure Laterality Date ??? CARPAL TUNNEL RELEASE Right carpal tunnel release, FCR release, fasciotomy small and ring fingers ??? HERNIA REPAIR ??? PRO DSTR PARAVERTEBRAL FCT JNT NRVES CERVICAL OR THORACIC ADDL Right 08/03/2021 DESTRUCT BY LYTIC AGENT, FACET NERVE(S), W/IMAGING; CX OR THX, EA ADD (WRVU 1.32) performed by Emerson Chand MD at [facility] ??? PRO DSTR PARAVERTEBRAL FCT JNT NRVES CERVICAL OR THORACIC SINGLE Right 08/03/2021 DESTRUCT BY LYTIC AGNT, FACET JT NERVE(S), W/IMAGING; CX OR THX, SNGL (WRVU 3.84) performed by Emerson Chand MD at [facility] ??? ROTATOR CUFF REPAIR left shoulder x 2 ??? SPINAL FUSION Medications: Medications were reconciled and updated in the electronic medical record. Current Outpatient Medications: ??? NELLIE'S WORT ORAL, [...] daily., Disp: , Rfl: ??? flu vac [id number] 36mos up,PF, (Afluria Qd 2019-,3yr up,,PF,) 60 mcg (15 mcg x 4)/0.5 mL Syringe, Afluria Qd 2020-21 (36 mos up)(PF)60 mcg (15 mcg x4)/0.5 mL IM syringe ADM 0.5ML IM UTD, Disp: , Rfl: Allergies: Allergies Allergen Reactions ??? Dilaudid [Hydromorphone (Pf)] Other (See Comments) Lowers blood pressure ??? Chlorhexidine Gluconate Other reaction(s): Rash & Burning ??? Oxycodone-Acetaminophen Other reaction(s): Hallucinations ??? Pollen Extracts ??? Telfa [Adhesive Bandage] Rash Social History: Social History Socioeconomic History ??? Marital status: [...] Social History Narrative ??? Not on file Family history: No family history on file. No pertinent h/o arthritis or pain history in the family. Past medical, social and family history is unchanged from his prior visit on 08/03/2021. Review of Systems : Constitutional: No unintentional weight loss or gain, fevers, chills, or night sweats. Positive for above mentioned musculoskeletal and neurological findings on 14 point system review. Physical Exam: Height 177.8 cm (5' 10), weight 88.9 kg (196 lb). General: Well-nourished, well-developed male Psych: Appropriate affect, A&Ox3 , answers questions appropriately Imaging Studies: From Dr. Lanier's note dated 05/18/2020. ?? Cervical MRI, 03/01/2020: There is straightening of [...] velocities in bilateral median and ulnar distributions. Assessment: Grayson Dodd III is a 61 y.o. male with a work related injury on 01/07/2020, where he sustained both neck and lower back injuries. ?? He has had significant improvement of his neck pain after cervical MB RFA bilaterally. 1. Cervical spondylosis 2. Cervicalgia Plan/ Recommendations: We reviewed etiology, predisposing factor(s), natural course, imaging results as well as treatment options including medications, physical therapy/exercise, therapeutic injections, and surgery. The risks, consequences, alternatives, and benefits of various treatment options were discussed with the patient in great detail, including conservative management, injections and procedures. At this time there are no red flag symptoms on history. Patient instructed to go to emergency department if new or worsening neurological symptoms develop. - Medications: No new prescription at this time. Patient will continue current meds. - Imaging: No new imaging indicated at this time. - Physical therapy/modalities/DME: Continue home exercise program. - Interventional/Surgical procedures: RTC for Left C3, C4 , C5 and C6 MB RFA. Risks and benefits were discussed. He/ She is willing to proceed. Procedure: Cervical Radiofrequency Laterality: Left Levels: C3, C4, C5 and C6 Pertinent [...] Telehealth Visit 4-6 weeks with Marco A Chand MD JUSTIFICATION OF MEDICAL NECESSITY Patient's pain has been present for >6 weeks and is an average of >6/10 on 0-10 scale and/or pain interferes with ADLs. Conservative management includes: -Medications: acetaminophen, NSAIDS, neuropathics, muscle relaxants, -Physical Therapy: Completed 6 week course in the last 6 months -Continues clinician directed home exercise program including exercises learned in PT. Previous Left C3, C4, C5 and C6 MB RFA on 12/16/2020 provided 70% relief for 6 months. During that time patient able to participate in ADLs, had improved sleep, improved mobility. Patient reports functional improvement of at least 50%. - Referrals: None indicated at this time. - Activity: Continue activity as tolerated. - Follow-up: After C-spine MBBs Thank you for the opportunity to participate in this patient's care. This service was provided via real time telehealth-video communication. This visit was conducted during 2019 COVID-19 outbreak. Time spent on this visit reflects time evaluating the patient pre-visit, during the visit and post-visit. Total time spent 20 minutes by telephone. [facility] CONSENT FOR TELEHEALTH Telemedicine (Video) Appointment Although not required in [place], [place] has a telemedicine consent requirement. We are working on an automated process to obtain this. I obtained the patient's consent to receiving health care services at [facility] through telemedicine. We discussed the opportunities and limitations of delivering health care services through telemedicine. I told the patient that the telemedicine service is being delivered over a secure connection, except in the event of emergency conditions when such requirements may be waived. Patient agreed to the participation of other individuals assisting with their care by telemedicine, if indicated. Patient informed that telemedicine informed consent form is available for patient's review in [facility]'s patient portal, [facility]. Opportunities include: improved access to medical care; limiting spread of COVID virus; increased patient convenience Limitations include: technical difficulties; need for a subsequent in-person visit due to transmission quality problems or need for physical examination not possible over video. Emerson Chand MD Attending [facility]ician [facility] [place] [address] / CC: Didier Romero MD [address] [place] [address] documented in this encounter Plan of Treatment Upcoming Encounters Date Type Department Care Team (Late st Contact Info) Description 01/03/2024 8:15 AM EDT Office Visit Dermatology at [place] [address] [place] [address] Jake Galvez MD [address] [place] [address] documented as of this encounter Visit Diagnoses Diagnosis Cervical spondylosis- Primary Cervical spondylosis without myelopathy Cervicalgia documented in this encounter Care Teams Dress Designer Relationship Specialty Start Date End Date Didier Romero MD [facility] [place] [address] PCP - General Family Medicine 01/11/17 documented as of this encounter
--- OUTSIDE RECORDS SUMMARY | 2023-12-25 18:47 | XMS_ITS | Encounter Summary ---
[place] [address] Care Team Providers Care Solderer Dipper Name Role Phone Didier Romero MD Primary Care Provider + Encounter Details Date Type Department Care Team (Late st Contact Info) Description 08/04/2022 Telephone Dermatology at [address] [address] Ana Hui RN Social History Tobacco Use Types Packs/Day [...] encounter Miscellaneous Notes * Telephone Encounter - Ana Hui RN - 08/04/2022 8:27 AM EST Patient called and informed of his pathology results. Patient had an excision left lateral neck on 07/20/2022. Diagnosis margins are clear. Per Dr. Galvez's recommendation no further treatment is needed and patient to follow up in 6 months. Patient informed this and stated that he understood. Patient did have his sutures removed on 07/28/2022. He does have a follow up on 01/01/223 and reminded of his appointment. documented in this encounter Plan of Treatment Upcoming Encounters Date Type Department Care Team (Late st Contact Info) Description 01/03/2024 8:15 AM EDT Office Visit Dermatology at [place] [address] [place] [address] Jake Galvez MD [address] [facility] [place] [address] documented as of this encounter Visit Diagnoses Not on filedocumented in this encounter Care Teams Solderer Dipper Relationship Specialty Start Date End Date Didier Romero MD [address] [place] [address] PCP - General Family Medicine 01/11/17 documented as of this encounter
--- OUTSIDE RECORDS SUMMARY | 2023-12-25 18:47 | XMS_ITS | Encounter Summary ---
Author Organization [facility] [place] [address] Care Team Providers Care Certified Pediatric Nurse Practitioner Name Role Phone Didier Romero MD Primary [...] Expiration Date Visits Re quested Visits Authorized [id number] 1 1 Encounter Details Date Type Department Care Team (Late st Contact Info) Description 11/07/2021 8:00 AM EDT - 11/07/2021 8:45 AM EDT [place] [phone] Emerson Chand MD [facility] [place] [address] DESTRUCT BY LYTIC AGENT, FACET NERVE(S), W/IMAGING; [...] Sign Reading Time Taken Comments Blood Pressure 146/95 11/07/2021 8:40 AM EDT Pulse 94 11/07/2021 7:42 AM EDT Temperature - - Respiratory Rate - - Oxygen Saturation 97% 11/07/2021 8:40 AM EDT Inhaled Oxygen Concentration - - Weight 88.9 kg (196 lb) 11/07/2021 7:42 AM EDT Height 177.8 cm (5' 10) 11/07/2021 7:42 AM EDT Body Mass Index 28.12 11/07/2021 7:42 AM EDT documented in this encounter Discharge Instructions * Discharge Instructions* Miah Whittaker Luis - 11/07/2021 8:00 AM EDT Pain Management Center Discharge Instructions: You were seen today by Surgeon(s): Emerson Chand MD Carter, MD Francois Raphael Ojas A, MD The following was performed: Procedure(s) (LRB): DESTRUCT BY LYTIC AGENT, FACET NERVE(S), W/IMAGING; CX OR THX, EA ADD (WRVU 1.32) (Left) DESTRUCT BY LYTIC AGNT, FACET JT NERVE(S), W/IMAGING; CX OR THX, SNGL (WRVU 3.84) (Left) It is normal that the injection [...] During Procedure Date/Time Order Dose Route Action 11/07/2021 0858 dexAMETHasone (PF) (Decadron) (10 mg/mL) injection 10 mg Intra- articular Given 11/07/2021 0859 lidocaine (pf) (Xylocaine) (10 mg/mL) 1% injection 2 mL Other Given 11/07/2021 0824 lidocaine (pf) (Xylocaine) (20 mg/mL) 2% injection [...] the muscle every 14 days. flu vac [id number] 36mos up,PF, (Afluria Qd 2019-,3yr up,,PF,) 60 [...] 20 mg by mouth nightly. 10/22/2021 01/01/2023 venlafaxine XR (Effexor-XR) 75 mg Capsule, Sust. Release 24 hr Take 75 mg by mouth daily. TAKE WITH FOOD 10/24/2021 07/05/2023 NELLIE'S WORT ORAL Take by mouth. 01/01 UNKNOWN TO PATIENTIndications:L-t heanine Indications: L-theanine 06/2023 allopurinol (ZYLOPRIM) 300 mg tablet Take 300 mg by mouth daily. 01/01/2023 documented as of this encounter H&P Notes * Yaw Contreras MD - 11/07/2021 6:36 AM EDT Patient Name: Grayson Dodd III Patient Age: 61 y.o. Birthdate: 1960 Admit date: 11/07/2021 Attending Physician: Emerson Chand MD PREPROCEDURE HISTORY AND PHYSICAL Date of Visit: November 07, 2021 Chief Complaint: Left Neck Pain HPI: Subjective Grayson oDdd III is a 61 y.o. male who presents today for Procedure: Left C3,4,5,6 cervical medial branch blocks affecting C3-4, C4-5 and C5-6 The patient denies any recent NSAID or anticoagulation. The patient is currently on Aspirin and per MARTA guidelines not essential to hold. The patient denies any allergy to local anesthetics, contrast dye, or steroids. No recent or planned vaccinations. Appropriately NPO Patient denies any recent antibiotic use. Patient states they are in their usual state of health. The history is obtained from the patient, and I have reviewed medical records provided by the referring physician and located in the electronic medical record to fill in gaps in the patient's recollection of events, treatments and outcomes. LOCATION: Left Neck Pain PAIN LEVEL AT REST 09/11 PAST MEDICAL HISTORY: Past Medical History: Diagnosis Date ??? Gout ??? Hx of hypogonadism ??? Hypertension ??? Type 2 diabetes mellitus PAST SURGICAL HISTORY: Past Surgical History: Procedure Laterality Date ??? CARPAL TUNNEL RELEASE Right carpal tunnel release, FCR release, fasciotomy small and ring fingers ??? CT GUIDED INJECTION SI JOINT 10/11/2021 CT Guided Injection SI Joint 10/11/2021 Dannie Bailon MD [facility] RAD CT SCAN ??? HERNIA REPAIR ??? PRO DSTR PARAVERTEBRAL FCT JNT NRVES CERVICAL OR THORACIC ADDL Right 08/03/2021 DESTRUCT BY LYTIC AGENT, FACET NERVE(S), W/IMAGING; CX OR THX, EA ADD (WRVU 1.32) performed by Emerson Chand MD at [facility] PAIN MGMT MSO ??? PRO DSTR PARAVERTEBRAL FCT JNT NRVES CERVICAL OR THORACIC SINGLE Right 08/03/2021 DESTRUCT BY LYTIC AGNT, FACET JT NERVE(S), W/IMAGING; CX OR THX, SNGL (WRVU 3.84) performed by Emerson Chand MD at [facility] PAIN MGMT MSO ??? ROTATOR CUFF REPAIR left shoulder x 2 ??? SPINAL FUSION ALLERGIES: Dilaudid [hydromorphone (pf)], Chlorhexidine gluconate, Oxycodone-acetaminophen, Pollen extracts, and Telfa [adhesive bandage] MEDICATIONS: No current facility-administered medications on file prior to encounter. Current Outpatient Medications on File Prior to Encounter Medication Sig Dispense Refill ??? NELLIE'S WORT ORAL Take by mouth. ??? UNABLE TO FIND 2,500 mcg daily. Med Name: Vitamin b12 ??? irbesartan (AVAPRO) 75 mg Tablet daily. ??? folic acid (FOLVITE) 1 mg Tablet daily. ??? meTOPROLOL succinate (TOPROL-XL) 25 mg Tablet Sustained Release 24 hr daily. ??? aspirin 81 mg EC tablet Take 81 mg by mouth daily. ??? omeprazole (PRILOSEC) 20 mg capsule Take 20 mg by mouth daily. ??? UNKNOWN TO PATIENT Indications: L-theanine ??? BD Luer-Kg Syringe 3 mL 22 gauge x 1 Syringe USE TWICE MONTHLY ??? testosterone cypionate (DepoTESTOSTERONE Cypionate) (200mg/mL) injection Inject 100 mg into themuscle every 14 days. ??? flu vac [id number] 36mos up,PF, (Afluria Qd 2019-,3yr up,,PF,) 60 mcg (15 mcg x 4)/0.5 mL Syringe Afluria Qd 2020- (36 mos up)(PF)60 mcg (15 mcg x4)/0.5 mL IM syringe ADM 0.5ML IM UTD ??? BD SafetyGlide Needle 25 x 5/8 Needle EVERY 2 WEEKS WITH TESTOSTERONE ??? BD SafetyGlide Needle 25 gauge x 1 Needle ??? cyanocobalamin, vitamin B-12, 1,000 mcg/mL Solution Once a Month 0 ??? FLOVENT HFA 220 mcg/actuation HFA Aerosol Inhaler as needed. ??? allopurinol (ZYLOPRIM) 300 mg tablet Take 300 mg by mouth daily. ??? albuterol-ipratropium (COMBIVENT) 18-103 mcg/actuation Aerosol Inhale 2 puffs into the lungs every 6 hours as needed. FAMILY HISTORY: No family history on file. [...] on file Housing Stability: Not on file ROS: Pt denies recent fever, chills, infection, wounds, hospitalizations, ED visits, use of antibiotics.Otherwise, as described above. PHYSICAL EXAM: BP 127/70 (Patient Position: Sitting) Pulse 94 Ht 177.8 cm (5' 10) Wt 88.9 kg (196 lb) SpO2 97% BMI 28.12 kg/m?? Physical Exam Constitutional: Pt oriented to person, place, and time. Appears well-developed and well-nourished. No distress. HENT: Normocephalic and atraumatic. Pulmonary/Chest: Effort normal. Neurological: Alert and oriented to person, place, and time. No cranial nerve deficit. Moves all extremities at least antigravity Skin: Skin is warm and dry. No rash noted. Not diaphoretic. Psychiatric: Normal mood and affect. RADIOLOGIC DATA: Relevant imaging reviewed LABS/DX RESULTS: Last 3 wbc, hgb, hct plt No results for input(s): WBC, HGB, HCT, PLATELET in the last 7068 hours. Last 3 Lytes No results for input(s): NA, K, CL, CO2, BUN, CREATININE in the last 7068 hours. Last 3 LFTs No results for input(s): AST, ALT, ALKPHOS, BILITOT, BILIDIR in the last 7068 hours. Last 3 Coags No results for input(s): PT, INR, PTT in the last 168 hours. Last 3 HgbA1C No results for input(s): HA1C in the last 7068 hours. ASSESSMENT: Assessment Spondylosis of cervical region without myelopathy or radiculopathy PLAN: Proceed with planned procedure. Addressed all questions and concerns. Risks and benefits discussed with patient. No contraindications to the procedure at this time, will proceed. Yaw Contreras MD Pain Medicine Fellow [address] [address] / [facility] documented in this encounter Miscellaneous Notes * Op Note - Robbin Parrish - 11/07/2021 8:23 AM EDT Pain Management Operative Note Patient Name: Grayson Dodd III : [id number] MR#: [id number] Case Date: 11/07/2021 Surgeon: Surgeon(s) and Role: * Emerson Chand MD - Primary * Yaw Contreras MD - Fellow * Robbin Parrish MD - Fellow Present on Admission: ??? Spondylosis of cervical region without myelopathy or radiculopathy Postoperative diagnosis: Cervical spondylosis Procedure(s) (LRB): DESTRUCT BY LYTIC AGENT, FACET NERVE(S), W/IMAGING; CX OR THX, EA ADD (WRVU 1.32) (Left) DESTRUCT BY LYTIC AGNT, FACET JT NERVE(S), W/IMAGING; CX OR THX, SNGL (WRVU 3.84) (Left) CERVICAL MEDIAL BRANCH RADIOFREQUENCY Date of Service: 08/31/2021 Patient: Grayson Dodd III Provider: Robbin Parrish MD Grayson Dodd III has been referred to the Pain Management Center for radiofrequency treatment ofchronic neck pain. Mr. Dodd has had long standing back pain which is facet joint generated and which has been refractory to other therapies. Local anesthetic medial branch blocks resulted in Mr. Dodd reporting a significant reduction of the usual axial component of pain for at least the duration of the local anesthetic effect. COMMENTS: Mr. Dodd was interviewed and the medical [...] points of the segmental medial branches of left C3, C4, C5 and C6 were identified with fluoroscopy and marked.Following thorough betadine preparation of the skin and draping and 1% lidocaine infiltration of the skin entry points and subcutaneous tissues, a single 10 cm 18 guage curved needle with a 10mm active tip radiofrequency cannula was placed under fluoroscopic guidance along or across the anatomic course of each respective segmental medial branch. Each placement was stimulated at 2Hz without any evidence of distal myotomal stimulation. At each placement a continuous mode radiofrequency treatment was done at 80 degrees C for 90 secs and then repeated. Once the radiofrequency treatment was completed 0.75 cc of a 3 cc solution of Dexamethasone 10 mg and 2 cc of lidocaine 1%. The needles were then removed without difficulty. This radiofrequency treatment should result in the denervation of the left C3-4, C4-5 and C5-6. A total of 3 [...] and appointments were discussed with Grayson Dodd III. Post procedure instruction was given as documented in the nursing documentation and having met discharge criteria, he was discharged from the Pain Management Center. COMMENTS: Procedure was performed by Dr. Contreras and Dr. Chand. Dr. Parrish was observing. Robbin Parrish, PGY5 Pain Fellow CC: Didier Romero MD [facility] [place] [address] Associated attestation - Emerson Chand MD - 11/10/2021 11:06 PM EDT Attestation: Case Date: 11/07/2021 I was present and I participated during the entire procedure (does not need to include opening and closing). Emerson Chand MD 11/10/2021 documented in this encounter Plan of Treatment Upcoming Encounters Date Type Department Care Team (Late st Contact Info) Description 01/03/2024 8:15 AM EDT Office Visit Dermatology at [place] [address] [place] [address] Jake Galvez MD [address] [facility] [place] [address] documented as of this encounter Procedures Procedure Name Priority Date/Time Associated Diagnosis Comments Dstr Paravertebral Fct Jnt Nrves Cervical or Thoracic Single 11/07/2021 8:11 AM EDT Cervical spondylosis Cervicalgia Dstr Paravertebral Fct Jnt Nrves Cervical or Thoracic Addl 11/07/2021 8:11 AM EDT Cervical spondylosis Cervicalgia DESTRUCT BY LYTIC AGENT, FACET NERVE(S), W/IMAGING; CX OR THX, EA ADD Routine 11/07/2021 7:40 AM EDT Cervical spondylosis Cervicalgia DESTRUCT BY LYTIC AGNT, FACET JT NERVE(S), W/IMAGING; CX OR THX, SNGL Routine 11/07/2021 7:40 AM EDT Cervical spondylosis Cervicalgia documented in this encounter Visit Diagnoses Diagnosis Spondylosis of cervical region without myelopathy or radiculopathy- Primary Cervical spondylosis without myelopathy Cervical spondylosis Cervical spondylosis without myelopathy Cervicalgia Cervical spondylosis Cervical spondylosis without myelopathy Cervicalgia documented in this encounter Administered Medications Inactive Administered Medications - up to 3 most recent administrations Medication Order MAR Action Action Date Dose Rate Site dexAMETHasone (PF) (Decadron) (10 mg/mL) injection ONCE PRN, Starting on Sun11/07/21 at 0858, Until Sun11/07/21 at 1122, Intra-Operative (Intra-Procedure), Routine Given 11/07/2021 8:58 AM EDT 10 mg lidocaine (pf) (Xylocaine) (10 mg/mL) 1% injection ONCE PRN, Starting on Sun11/07/21 at 0859, Until Sun11/07/21 at 1122, Intra-Operative (Intra-Procedure), Routine Given 11/07/2021 8:59 AM EDT 2 mLs lidocaine (pf) (Xylocaine) (20 mg/mL) 2% injection ONCE PRN, Starting on Sun11/07/21 at 0824, Until Sun11/07/21 at 1122, Intra-Operative (Intra-Procedure), Routine Given 11/07/2021 8:24 AM EDT 4 mLs documented in this encounter Active and Recently Administered Medications Times are shown in EDT. PRN Medication Order 11/05/2021 11/06/2021 11/07/2021 dexAMETHasone (PF) (Decadron) (10 mg/mL) injection (CANCELED) ONCE PRN, Starting on Sun11/07/21 at 0858, Until Sun11/07/21 at 1122, Intra-Operative (Intra-Procedure), Routine 0858 (Given - Provid er: Yaw Contreras MD - Comment: left cervical RFA) lidocaine (pf) (Xylocaine) (10 mg/mL) 1% injection (CANCELED) ONCE PRN, Starting on Sun11/07/21 at 0859, Until Sun11/07/21 at 1122, Intra-Operative (Intra-Procedure), Routine 0859 (Given - Provid er: Yaw Contreras MD - Comment: left cervical RFA) lidocaine (pf) (Xylocaine) (20 mg/mL) 2% injection (CANCELED) ONCE PRN, Starting on Sun11/07/21 at 0824, Until Sun11/07/21 at 1122, Intra-Operative (Intra-Procedure), Routine 0824 (Given - Provid er: Yaw Contreras MD - Comment: left cervical RFA) documented in this encounter Care Teams Certified Pediatric Nurse Practitioner Relationship Specialty Start Date End Date Didier Romero MD [address] [place] [address] PCP - General Family Medicine 01/11/17 documented as of this encounter
--- OUTSIDE RECORDS SUMMARY | 2023-12-25 18:47 | XMS_ITS | Encounter Summary ---
Author Organization [facility] Address [facility] [place] [address] Care Team Providers Care Inside Finisher Name Role Phone Didier Romero MD Primary [...] Expiration Date Visits Re quested Visits Authorized [id number] 1 1 Encounter Details Date Type Department Care Team (Latest Contact Info) Description 11/07/2021 7:29 AM EDT - 11/07/2021 9:22 AM EDT Hospital En[place] [phone] Emerson Chand MD [facility] [place] [address] Cervical spondylosis; Cervicalgia Discharge Disposition: Home Social [...] Rate - - Oxygen Saturation 97% 11/07/2021 9:00 AM EDT Inhaled Oxygen Concentration - - Weight 88.9 kg (196 lb) 11/07/2021 7:42 AM EDT Height 177.8 cm (5' 10) 11/07/2021 7:42 AM EDT Body Mass Index 28.12 11/07/2021 7:42 AM EDT documented in this encounter Discharge Instructions * Discharge Instructions* Miah Whittaker - 11/07/2021 8:00 AM EDT Pain Management Center Discharge Instructions: You were seen today by Surgeon(s): Emerson Chand MD Carter, Zachary J, MD Mainkar, Ojas A, MD The following was performed: [...] the muscle every 14 days. flu vac [id number] 36mos up,PF, (Afluria Qd ,3yr up,,PF,) 60 [...] Complaint: Left Neck Pain HPI: Subjective Grayson Dodd III is a 61 y.o. [...] Injection SI Joint 10/11/2021 Dannie Bailon MD [facility] RAD CT SCAN ??? HERNIA REPAIR ??? PRO DSTR PARAVERTEBRAL FCT JNT NRVES CERVICAL OR THORACIC ADDL Right 08/03/2021 DESTRUCT BY LYTIC AGENT, FACET NERVE(S), W/IMAGING; CX OR THX, EA ADD (WRVU 1.32) performed by Emerson Chand MD at [facility] PAIN MGMT MSO ??? PRO DSTR PARAVERTEBRAL FCT JNT NRVES CERVICAL OR THORACIC SINGLE Right 08/03/2021 DESTRUCT BY LYTIC AGNT, FACET JT NERVE(S), W/IMAGING; CX OR THX, SNGL (WRVU 3.84) performed by Emerson Chand MD at [facility] PAIN MGMT MSO ??? ROTATOR CUFF REPAIR [...] themuscle every 14 days. ??? flu vac [id number] 36mos up,PF, (Afluria Qd 2019-,3yr up,,PF,) 61 [...] proceed. Yaw Contreras MD Pain Medicine Fellow [address] [address] / [facility] documented in this encounter Miscellaneous Notes * Op Note - Robbin Parrish - 11/07/2021 8:23 AM EDT Pain Management Operative Note Patient Name: Grayson Dodd III : [id number] MR#: [id number] Case Date: 11/07/2021 Surgeon: Surgeon(s) and Role: [...] PGY5 Pain Fellow CC: Didier Romero MD [facility] [place] [place] [address] Associated attestation - Emerson Chand MD - [...] 8:15 AM EDT Office Visit Dermatology at [place] [address] [place] [address] Jake Galvez MD [address] [place] [address] documented as of this encounter Procedures Procedure [...] RFA) documented in this encounter Care Teams Inside Finisher Relationship Specialty Start Date End Date Didier Romero MD [address] [place] [address] PCP - General Family Medicine 01/11/17 documented as of this encounter
--- OUTSIDE RECORDS SUMMARY | 2023-12-25 18:47 | XMS_ITS | Encounter Summary ---
[place] [address] Care Team Providers Care Fun House Attendant Name Role Phone Didier Romero MD Primary Care Provider + Reason for Visit * Auth/Cert Specialty Diagnoses / Procedures Referred By Contac t Referred To Contact Diagnoses Lumbosacral radiculopathy Procedures PRO INJECTION DX/THER SBST INTRLMNR LMBR/SAC W/IMG GDN INJECTION, EPIDURAL, LUMBAR OR SACRAL (CAUDAL), WITH IMAGING GUIDANCE (WRVU 1.8) Referral ID Status Reason Start Date Expiration Date Visits Re quested Visits Authorized [id number] 1 1 Encounter Details Date Type Department Care Team (Late Contact Info) Description 02/03/2021 9:00 AM EDT Ancillary [place] [phone] Emerson Chand MD [facility] [place] [address] Pain Social History Tobacco Use Types Packs/Day Years [...] 8:15 AM EDT Office Visit Dermatology at [place] [address] [place] [address] Jake Galvez MD [address] [place] [address] documented as of this encounter Procedures Procedure Name Priority Date/Time Associated Diagnosis Comments FILM LIBRARY STORAGE ONLY PAIN CLINIC C ARM Routine 02/03/2021 1:24 PM EDT Pain documented in this encounter Results * Film Library- Storage Only pain Clinic C-Arm (02/03/2021 1:24 PM EDT) Narrative [facility] - 02/03/2021 1:24 PM EDT See PACS for result report. Emerson Chand MD IMG FILM LIBRARY ORD ERABLES Performing Organization Address City/State/[facility] Co de Phone Number [place], [place] documented in this encounter Visit Diagnoses Diagnosis Pain Generalized pain documented in this encounter Care Teams Fun House Attendant Relationship Specialty Start Date End Date Didier Romero MD [address] [place] [address] PCP - General Family Medicine 01/11/17 documented as of this encounter
--- OUTSIDE RECORDS SUMMARY | 2023-12-25 18:47 | XMS_ITS | Encounter Summary ---
[place] [address] Care Team Providers Care Charter Pilot Name Role Phone Didier Romero MD Primary Care Provider + Encounter Details Date Type Department Care Team (Late st Contact Info) Description 07/24/2022 Telephone [place] [phone] Mary Larsen, RN Social History Tobacco Use Types Packs/Day [...] encounter Miscellaneous Notes * Telephone Encounter - Mary Larsen RN - 07/24/2022 1:41 PM EST Outgoing call in response to VM left by Anisha Santiago in regards to a repeat CRFA for the patient. Anisha stated in VM patient is scheduled for lumbar surgery on 08/21. Upon review of chart, last CRFA done November of 2021 and last office visit with Dr. Chand was Jul 2021. Patient did not have a follow up visit after most recent CRFA. Current protocol is that patients must be seen within 6 months for procedures. Reviewed clinic schedule and procedure schedule and unable to accommodate for repeat CRFA before 08/21. Unable to reach Anisha at this time and a VM was left informing her of this information. Provided my direct line in if Anisha has any other questions. documented in this encounter Plan of Treatment Upcoming Encounters Date Type Department Care Team (Late st Contact Info) Description 01/03/2024 8:15 AM EDT Office Visit Dermatology at [place] [address] [place] [address] Jake Galvez MD [address] [facility] [place] [address] documented as of this encounter Visit Diagnoses Not on filedocumented in this encounter Care Teams Charter Pilot Relationship Specialty Start Date End Date Didier Romero MD [address] [place] [address] PCP - General Family Medicine 01/11/17 documented as of this encounter
--- OUTSIDE RECORDS SUMMARY | 2023-12-25 18:47 | XMS_ITS | Encounter Summary ---
[place] [address] Care Team Providers Care Brine Well Operator Name Role Phone Didier Romero MD Primary Care Provider + Encounter Details Date Type Department Care Team (Late st Contact Info) Description 07/13/2021 Telephone [facility] [place] [address] Kenyatta Solorzano, RN Social History Tobacco Use Types Packs/Day [...] encounter Miscellaneous Notes * Telephone Encounter - Kenyatta Solorzano RN - 07/13/2021 9:45 AM EST Outgoing call to Dr. Anisha Xie as she had called and left a M on the nurse triage line regarding this patient and getting him scheduled for another cervical injection with Dr. Chand. I spoke with Dr. Xie and reviewed patient chart. Patient was initially sent to see Dr. Lanier for neck pain. Patient was then sent to see Dr. Chand who did cervical MBB and and RFA on the right side on 07/26/20. He also had Left sided MBB's and RFA with Dr. Chand in December of 2020. Patient is currently undergoing a work up for possible SCS placement for lumbar back pain. Per Dr. Xie, that work-up is on hold while Grayson seeks a second opinion, however his neck pain hasreturned on the right. I let Dr. Xie know that we can set up an appointment for Grayson to have another evaluationwith Dr. Chand to discuss another possible RFA for the return of his cervical pain. I spoke to Ofelia in scheduling. She will call patient and get him scheduled for a follow-up appointment with Dr. Mannie Murdock, RN documented in this encounter Plan of Treatment Upcoming Encounters Date Type Department Care Team (Late st Contact Info) Description 01/03/2024 8:15 AM EDT Office Visit Dermatology at [address] [address] Jake Galvez MD [address] [place] [address] [place] [address] documented as of this encounter Visit Diagnoses Not on filedocumented in this encounter Care Teams Brine Well Operator Relationship Specialty Start Date End Date Didier Romero MD [address] [place] [address] PCP - General Family Medicine 01/11/17 documented as of this encounter
--- OUTSIDE RECORDS SUMMARY | 2023-12-25 18:47 | XMS_ITS | Encounter Summary ---
Author Organization On License Of [facility] Address [facility] [place] [address] Care Team Providers Care It Applications Developer Name Role Phone Didier Romero MD Primary Care Provider + Reason for Referral * Consultation (Routine) - Closed Specialty Diagnoses / Procedures Referred By Contac t Referred To Contact [facility] and Sp[facility] Center Diagnoses Postlaminectomy syndrome of lumbar region Radiculopathy of lumbosacral region Emerson Chand MD [facility] [place] [address] Lizett Genao PsyD [facility] [place] [address] Referral ID Status Reason Start Date Expiration Date V isits Requested Visits Authorized [id number] Closed Consult, Test & Treat 06/01/2021 06/01/2022 3 3 Reason for Visit * Reason Comments Follow-up Back Pain * Consultation (Routine) - Closed Specialty Diagnoses / Procedures Referred By Contac t Referred To Contact [facility] Diagnoses Left lumbar radiculopathy Spondylolisthesis at L5-S1 level Chandler Clark MD [facility] [place] [address] Emerson Chand MD [facility] [place] [address] Referral ID Status Reason Start Date Expiration Date V isits Requested Visits Authorized [id number] Closed Evaluate and Treat 05/03/2021 05/03/2022 3 3 Encounter Details Date Type Department Care Team (Latest Contact Info) Description 06/01/2021 9:00 AM EST Office Visit [place] [phone] Emerson Chand MD [facility] [place] [address] Radiculopathy of lumbosacral region (Primary Dx); Postlaminectomy syndrome of lumbar region Social History Tobacco Use Types Packs/Day [...] Sign Reading Time Taken Comments Blood Pressure 125/75 06/01/2021 9:01 AM EST Pulse 88 06/01/2021 9:01 AM EST Temperature - - Respiratory Rate - - Oxygen Saturation 100% 06/01/2021 9:01 AM EST Inhaled Oxygen Concentration - - Weight 88.9 kg (196 lb) 06/01/2021 9:01 AM EST Height 177.8 cm (5' 10) 06/01/2021 9:01 AM EST Body Mass Index 28.12 06/01/2021 9:01 AM EST documented in this encounter Progress Notes * Emerson Chand MD - 06/01/2021 9:00 AM EST [facility] - Follow Up Note Date of visit: 06/01/21 : 1960 CC: Low back pain HPI: Grayson Dodd JOSE is a 61 y.o. year old male who presents to the pain clinic today for follow up in regards to his lower back pain He underwent a caudal Tevin on 02/03/2021 with no significant relief of his symptoms. He has seen Dr. Clark for a surgical opinion and was not a candidate for surgery due to prior fusion. He is here to discuss SCS, which was explained and reviewed in detail. PMH/PSH: Patient Active Problem List Diagnosis Code [...] on file Housing Stability: Not on file MEDICATIONS: Current Outpatient Medications: ??? UNABLE TO FIND, 2,500 mcg daily. Med Name: Vitamin b12, Disp: , Rfl: ??? BD Luer-Kg Syringe 3 mL 22 gauge x 1 Syringe, USE TWICE MONTHLY, Disp: , Rfl: ??? testosterone cypionate (DepoTESTOSTERONE Cypionate) (200mg/mL) injection, Inject 100 mg into the muscle every 14 days., Disp: , Rfl: ??? flu vac [id number] 36mos up,PF, (Afluria Qd 2019-,3yr up,,PF,) 60 mcg (15 mcg x 4)/0.5 mL Syringe, Afluria Qd 2019- (36 mos up)(PF)60 mcg (15 mcg x4)/0.5 mL IM syringe ADM 0.5ML IM UTD, Disp: , Rfl: ??? BD SafetyGlide Needle [...] , Rfl: ??? albuterol-ipratropium (COMBIVENT) 18-103 mcg/actuation inhaler, Inhale 2 puffs into the lungs every 6 hours as needed., Disp: , Rfl: ??? omeprazole (PRILOSEC) 20 mg capsule, Take 20 mg by mouth daily., Disp: , Rfl: ALLERGIES: Allergies Allergen Reactions ??? Dilaudid [Hydromorphone (Pf)] Other (See Comments) Lowers blood pressure ??? Chlorhexidine Gluconate Other reaction(s): Rash & Burning ??? Oxycodone-Acetaminophen Other reaction(s): Hallucinations ??? Pollen Extracts ??? Telfa [Adhesive Bandage] Rash ROS: Review of Systems PHYSICAL EXAM: BP 125/75 Pulse 88 Ht 177.8 cm (5' 10) Wt 88.9 kg (196 lb) SpO2 100% BMI 28.12 kg/m?? Physical Exam Alert and oriented x3. TESTS / IMAGING: MRI - DIAGNOSIS: 1. Radiculopathy of lumbosacral region Referral to Pain and Spine Center (Internal only) 2. Postlaminectomy syndrome of lumbar region Referral to [facility] Center (Internal only) ASSESSMENT: 61 yo M with postlaminectomy syndrome, worsened pain after a work related accident PLAN: Will start SCS process. Risks, benefits, and alternatives to the procedure were discussed with the patient at length to include use of: anatomical models, and imaging. The patient states understanding; all questions were answered to the patient's satisfaction and thepatient desires to move forward with the discussed procedure. Medication: Continue current meds Imaging: Will need T-spine MRI Referral: Eval with Dr. Genao for SCS suitability Emerson Chand MD [facility] [place] [address] / CC: Chandler Clark MD [facility] [place] [address] documented in this encounter Plan of Treatment Upcoming Encounters Date Type Department Care Team (Late st Contact Info) Description 01/03/2024 8:15 AM EDT Office Visit Dermatology at [address] [phone] Jake Galvez MD [address] [facility] [place] [address] Scheduled Referrals Name Type Priority Associated Diagnoses Orde r Schedule Referral to Pain and Spine Center (Internal only) Outpatient Referral Routine Postlaminectomy syndrome of lumbar region Radiculopathy of lumbosacral region Ordered: 06/01/2021 documented as of this encounter Visit Diagnoses Diagnosis Radiculopathy of lumbosacral region- Primary Thoracic or lumbosacral neuritis or radiculitis, unspecified Postlaminectomy syndrome of lumbar region Postlaminectomy syndrome, lumbar region documented in this encounter Care Teams It Applications Developer Relationship Specialty Start Date End Date Didier Romero MD [facility] [place] [address] [place] [address] PCP - General Family Medicine 01/11/17 documented as of this encounter
--- OUTSIDE RECORDS SUMMARY | 2023-12-25 18:47 | XMS_ITS | Encounter Summary ---
Author [place] [address] Care Team Providers Care College Service Officer Name Role Phone Didier Romero MD Primary Care Provider + Reason for Referral * Consultation (Routine) - Closed Specialty Diagnoses / Procedures Referred By Contac t Referred To Contact [facility] and Sp[facility] Center Diagnoses Left lumbar radiculopathy Lumbar spondylosis Geoff Lanier MD [facility] [place] [address] [facility] [place] [address] Referral ID Status Reason Start Date Expiration Date V isits Requested Visits Authorized [id number] Closed Surgical 02/24/2021 02/24/2022 3 3 Reason for Visit * Reason Comments Follow-up Procedure Encounter Details Date Type Department Care Team (Late st Contact Info) Description 02/24/2021 9:00 AM EDT Office Visit [place] [address] Geoff Lanier MD [facility] [place] [address] Left lumbar radiculopathy; Lumbar spondylosis Social History Tobacco Use Types Packs/Day Years [...] Sign Reading Time Taken Comments Blood Pressure 132/80 02/24/2021 8:52 AM EDT Pulse 72 02/24/2021 8:52 AM EDT Temperature - - Respiratory Rate - - Oxygen Saturation - - Inhaled Oxygen Concentration - - Weight 88 kg (194 lb) 02/24/2021 8:52 AM EDT Height 177.8 cm (5' 10) 02/24/2021 8:52 AM EDT Body Mass Index 27.84 02/24/2021 8:52 AM EDT documented in this encounter Progress Notes * Geoff Lanier MD - 02/24/2021 9:00 AM EDT Chief Complaint Patient presents with ??? Follow-up, S/P spinal injection Interim history: The patient returns for follow-up, status post caudal epidural steroid injection on 02/03/2021. He experienced less low back pain and a slight decrease in left lower extremity pain for four days following the injection. Right lower extremity pain was decreased for only one day. Symptoms then rapidly returned to their pre-injection baseline. At present, the patient reports left low lumbar and buttock pain with radiation to left posterior thigh. He reports numbness and tingling in the left calf and plantar foot. Pain is currently graded as 5/10 in intensity. Pain symptoms are worst in the left posterior thigh and posterior knee. Exacerbating factors: Forward flexion and squatting. Alleviating factors: Lying down. The patient denies focal lower extremity weakness, but states that he sometimes drags his left footon stairs. Clinical materials reports reviewed: 1. Procedure note of Emerson Chand MD, 02/03/2021. The patient underwent caudal epidural steroid injection. Past Medical History: Diagnosis Date ??? Gout [...] themuscle every 14 days. ??? flu vac [id number] 36mos up,PF, (Afluria Qd ,3yr up,,PF,) 60 [...] facility-administered medications on file prior to visit. Allergies Allergen Reactions ??? Dilaudid [Hydromorphone (Pf)] Other (See Comments) Lowers blood pressure ??? Chlorhexidine Gluconate Other reaction(s): Rash & Burning ??? Oxycodone-Acetaminophen Other reaction(s): Hallucinations ??? Pollen Extracts ??? Telfa [Adhesive Bandage] Rash Review of Systems: As above. Objective: BP 132/80 Pulse 72 Ht 177.8 cm (5' 10) Wt 88 kg (194 lb) BMI 27.84 kg/m?? The patient is seated comfortably and in no apparent distress. No pain behaviors are observed during today's evaluation. Gait is marked by impaired left foot clearance. There is no difficulty performing bilateral toe or right heel walking. The patient is unable to perform left heel walking. Right shoulder is elevated in standing. He exhibits a left lateral trunk shift. Hips and knees are flexed in standing. The patient reports pain at the central lumbosacral junction at end range flexion. Lumbar lordosis is decreased. Pelvis is posteriorly rotated. Standing iliac crest palpation is elevated on the right. Standing flexion test is positive on the left. Palpation: There is tenderness to palpation over bilateral quadratus lumborum, but tenderness is maximal over the sacrum. He exhibits mild bilateral sacroiliac tenderness. There is no pain with pelvic compression or shear. Motor: There is some variability in motor effort to testing of left ankle dorsiflexors. This rangesfrom 3+ to 4+/5, range of motion is less than full. Lower extremity motor examination is otherwise 5/5 throughout. Sensation: Decreased to light touch over left lateral leg, lateral heel and the plantar aspect of the left foot. Straight leg raising: The patient reports pain in left posterior knee with ipsilateral testing to 90 degrees in sitting and 45 degrees in supine. Right straight leg raising is negative. Muscle stretch reflexes: 2+ bilaterally for quadriceps and Achilles tendon. Assessment: Encounter Diagnoses Name Primary? Left lumbar radiculopathy ??? Lumbar spondylosis The patient exhibits left ankle dorsiflexion weakness under static and dynamic conditions. Left foot clearance is impaired. This has progressed since the last visit. Sensation is decreased in the left L5 and S1 distributions. The patient exhibits nerve root tension signs in left lower extremity. The clinical picture is consistent with left L5 and/or S1 radiculopathies. The patient has experienced no sustained relief of lumbar radicular symptoms following epidural steroid injection. I recommend surgical consultation, given the progressive neurological deficits. Plan: 1. Surgical consultation. 2. 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 Total time spent on date of encounter = 35 minutes. Geoff Lanier MD, MS 02/24/2021 documented in this encounter Plan of Treatment Upcoming Encounters Date Type Department Care Team (Late st Contact Info) Description 01/03/2024 8:15 AM EDT Office Visit Dermatology at [place] [address] [place] [address] Jake Galvez MD [address] [place] [address] Scheduled Referrals Name Type Priority Associated Diagnoses Orde r Schedule Referral to Pain and Spine Center (Internal only) Outpatient Referral Routine Left lumbar radiculopathy Lumbar spondylosis Ordered: 02/24/2021 documented as of this encounter Visit Diagnoses Diagnosis Left lumbar radiculopathy Thoracic or lumbosacral neuritis or radiculitis, unspecified Lumbar spondylosis Lumbosacral spondylosis without myelopathy documented in this encounter Care Teams College Service Officer Relationship Specialty Start Date End Date Didier Romero MD [address] [place] [address] PCP - General Family Medicine 01/11/17 documented as of this encounter
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
--- OUTSIDE RECORDS SUMMARY | 2023-12-25 18:47 | XMS_ITS | Encounter Summary ---
[place] [address] Care Team Providers Care Business English Instructor Name Role Phone Didier Romero MD Primary Care Provider + Encounter Details Date Type Department Care Team (Late st Contact Info) Description 07/29/2021 Telephone [facility] [place] [address] Kayley Mckeon, RN Social History [...] Telephone Encounter - Kayley Mckeon RN - 07/29/2021 9:37 AM EST Contact made with patient or field support representative as identified in contacts 1. Patient instructed to arrive at 07:30 on 08/03/21 with their cdl bulk driver for their cervical RFAA procedure. Please plan to spend about 2 [...] the patient has been directed to the [employer] hotline for testing prior to their procedure. (route telephone note to: [facility] covid 19 nurse triage with [...] 8:15 AM EDT Office Visit Dermatology at [place] [address] [place] [phone] Jake Galvez MD [address] [facility] [place] [address] documented as of this encounter Visit Diagnoses Not on filedocumented in this encounter Care Teams Business English Instructor Relationship Specialty Start Date End Date Didier Romero MD [address] [place] [address] PCP - General Family Medicine 01/11/17 documented as of this encounter
--- OUTSIDE RECORDS SUMMARY | 2023-12-25 18:48 | XMS_ITS | Encounter Summary ---
[place] [address] Care Team Providers Care Traffic Administrator Name Role Phone Didier Romero MD Primary Care Provider + Encounter Details Date Type Department Care Team (Late st Contact Info) Description 07/21/2020 Telephone [facility] [place] [phone] Kenyatta Solorzano, RN Social History Tobacco Use [...] Telephone Encounter - Kenyatta Solorzano RN - 07/21/2020 8:52 AM EST Grayson Dodd III :1960 Contact made with patient: I spoke to Mr. Dodd at 8:52 AM regarding his upcoming Right cervical radiofrequency scheduled on 07/26/2019 (date) scheduled at 0730 (time) with Dr. Marco A Chand MD. Medication and Allergy reconciliation: 1. Changes were made in the telephone encounter per patient; marked as reviewed, and closed. 2. Patient confirmed no IVP dye allergy. 3. Have you had any steroid injections anywhere in your body within the last two weeks? no Arrival time: The patient was instructed to arrive at 0700 (30 minutes prior to procedure start time - 60 minutesprior for RF patients with a pacemaker) on 07/26/2019 (date of procedure). Antibiotics/Skin assessment/Illness symptoms/Pain level assessment : 1. The patient confirmed that he is not taking antibiotics at this time. 2. The patient confirmed that he has notbeen in the emergency room in the last two weeks. 3.. The patient confirmed that he does not have any rashes, blisters, or skin breakdown on their body. 4. The patient confirmed that he does not have any active infections. 5. The patient confirmed that he and any household members have not had any symptoms of illness within the past 14 days: fever, chills, cold, flu, nausea, vomiting, diarrhea, shortness of breath, loss of taste, or recent stroke. 6. The patient confirmed that he is still experiencing significant pain. (Significant pain is defined as interfering with performing ADL.) 7. The patient confirmed that he have not been in contact with anyone known or suspected to have COVID-19. 8. The patient confirmed that he have not been suspected or tested for COVID-19 Pain and Anti-anxiety Medications: 1. Nerve Block Procedure Patients: Patient was instructed NOT to take their pain medications on theday of the procedure and anti-anxiety medications are part of their daily medication regiment; theycan and should continue taking that medication. 2. All Other Procedure Patients: The patient was instructed that if they take daily pain or anti-anxiety medications, they can and should continue taking on the day of the procedure. Does patient have history of any diagnosed bleeding disorders: No Anticoagulants: No NPO instructions given to patient: 1. Last solid food intake until 0130 (6 hours prior to procedure). 2. Clear liquids (edwina lorenzo, tea, black coffee, water, grape juice, apple juice, or cranberry juice) only intake until 0530 (2 hours prior to procedure). NSAIDs: Does the patient take Aspirin/ASA? Yes 81 mg Patient does not need to stop Does the patient take an NSAID? No Implant: Patient has pacemaker/defibrillator: No WHAT TO EXPECT DAY OF PROCEDURE - Patient will arrive at entrance and be screened (temp and symptoms) - Patient will be given a mask; They are required to wear the mask appropriately (covering nose andmouth) the entire time that they are in the [facility] (Including during the procedure). If for some reason they feel that they will have difficulty with this, their procedure will have to be postponed. Prior to checking in at 3D Small Engine Technician, please be sure to empty your bladder. Patient confirmed understanding that if they do not follow the above instructions, their procedure is likely to be cancelled. [facility] documented in this encounter Plan of Treatment Upcoming Encounters Date Type Department Care Team (Late st Contact Info) Description 01/03/2024 8:15 AM EDT Office Visit Dermatology at [place] [address] [place] [phone] Jake Galvez MD [address] [facility] [place] [address] documented as of this encounter Visit Diagnoses Not on filedocumented in this encounter Care Teams Traffic Administrator Relationship Specialty Start Date End Date Didier Romero MD [address] [place] [address] PCP - General Family Medicine 01/11/17 documented as of this encounter
--- OUTSIDE RECORDS SUMMARY | 2023-12-25 18:48 | XMS_ITS | Encounter Summary ---
[place] [address] Care Team Providers Care Tanker Truck Driver Name Role Phone Didier Romero MD Primary Care Provider + Reason for Visit * Auth/Cert Specialty Diagnoses / Procedures Referred By Contac t Referred To Contact Diagnoses Cervicalgia Procedures PRO DSTR PARAVERTEBRAL FCT JNT NRVES CERVICAL OR THORACIC SINGLE PRO DSTR PARAVERTEBRAL FCT JNT NRVES CERVICAL OR THORACIC ADDL RADIOFREQUENCY ABLATION,SINGLE FACET JOINT,CERVICAL (WRVU 3.84) RADIOFREQUENCY ABLATION,EACH ADD'L FACET JOINT,CERVICAL/THORACIC (WRVU 1.32) Referral ID Status Reason Start Date Expiration Date Visits Re quested Visits Authorized [id number] 1 1 Encounter Details Date Type Department Care Team (Late Contact Info) Description 07/26/2020 7:30 AM EST Ancillary [place] [phone] Emerson Chand MD [facility] [place] [address] Pain Social History Tobacco Use Types Packs/Day [...] 8:15 AM EDT Office Visit Dermatology at [place] [address] [place] [phone] Jake Galvez MD [address] [place] [address] documented as of this encounter Procedures Procedure Name Priority Date/Time Associated Diagnosis Comments FILM LIBRARY STORAGE ONLY PAIN CLINIC C ARM Routine 07/26/2020 12:18 PM EST Pain documented in this encounter Results * Film Library- Storage Only pain Clinic C-Arm (07/26/2020 12:18 PM EST) Narrative [facility] - 07/26/2020 12:18 PM EST See PACS for result report. Emerson Chand MD IMG FILM LIBRARY ORD ERABLES Performing Organization Address City/State/[facility] Co de Phone Number [place], [place] documented in this encounter Visit Diagnoses Diagnosis Pain Generalized pain documented in this encounter Care Teams Tanker Truck Driver Relationship Specialty Start Date End Date Didier Romero MD [address] [place] [address] PCP - General Family Medicine 01/11/17 documented as of this encounter
--- OUTSIDE RECORDS SUMMARY | 2023-12-25 18:48 | XMS_ITS | Encounter Summary ---
Author Organization [facility] [place] [address] Care Team Providers Care Edge Cutting Machine Operator Name Role Phone Didier Romero MD Primary Care Provider + Reason for Visit * Auth/Cert Specialty Diagnoses / Procedures Referred By Contac t Referred To Contact Diagnoses Cervicalgia Procedures PRO INJ, DIAG/THERAPEUTIC AGENT, PARAVERTEBRAL FACET JT, CERVICAL/THORACIC, SINGLE PRO INJECTION PV FACET JOINT CERV/THORACIC SECOND LEVEL PRO INJ//PARAVERTEBRAL FACET JT, W/IMAGE GUIDANCE, CERVICAL/THORACIC, 3RD OR ADDL LEVL INJECTION, FACET JOINT,W/FLUORO, CERVICAL, SINGLE (WRVU 1.82) INJECTION, FACET JOINT,W/FLUORO, CERVICAL, SECOND (WRVU 1.16) INJECTION, FACET JOINT,W/FLUORO, CERVICAL, THIRD/ADDTNL (WRVU 1.16) Referral ID Status Reason Start Date Expiration Date Visits Re quested Visits Authorized [id number] 1 1 Encounter Details Date Type Department Care Team (Latest Contact Info) Description 12/02/2020 7:53 AM EDT - 12/02/2020 9:45 AM EDT Hospital Encounter [place] [phone] Emerson Chand MD [facility] [place] [address] Discharge Disposition: Home Social History Tobacco Use [...] Sign Reading Time Taken Comments Blood Pressure 140/77 12/02/2020 9:35 AM EDT Pulse - - Temperature - - Respiratory Rate - - Oxygen Saturation 100% 12/02/2020 9:35 AM EDT Inhaled Oxygen Concentration - - Weight - - Height - - Body Mass Index - - documented in this encounter Discharge Instructions * Discharge Instructions* Malick Ramirez W - 12/02/2020 9:42 AM EDT Pain Management Center Discharge Instructions: You were seen today by Surgeon(s): Emerson Chand MD Inozemtsev, Konstantin, MD The following was performed: Procedure(s) (LRB): INJECTION, FACET JOINT,W/FLUORO, CERVICAL, SINGLE (WRVU 1.82) (Left) INJECTION, FACET JOINT,W/FLUORO, CERVICAL, SECOND (WRVU 1.16) (Left) INJECTION, FACET JOINT,W/FLUORO, CERVICAL, THIRD/ADDTNL (WRVU 1.16) (Left) It is normal that the injection site will be sore for up to 48 hours. [x] You may also experience mild stiffness in the joint near the injection site. You may resume your normal activities: today. You may shower today. DO NOT tub [...] During Procedure Date/Time Order Dose Route Action {\field{\*\fldinst HYPERLINK ecmd:ord?mj=[id number]}{\fldrslt \cf18 12/02/2020 0920}} BUpivacaine (pf) (Marcaine) (2.5 mg/mL) 0.25% injection 2 mL Other Given {\field{\*\fldinst HYPERLINK ecmd:ord?ea=[id number]}{\fldrslt \cf18 12/02/2020 0908}} iohexoL (Omnipaque) (240 mg/mL) injection solution 1 mL Other Given {\field{\*\fldinst HYPERLINK ecmd:ord?wo=[id number]}{\fldrslt \cf18 12/02/2020 0938}} lidocaine (pf) (Xylocaine) (10 mg/mL) 1% injection 5 mL Subcutaneous Given During regular business hours, please phone [...] or proceed to your local emergency department. Pain Management Center Post -Procedure Pain Log Patient: Grayson Dodd III [id number] It is important for you to keep track of your pain after your procedure that took place 12/02/2020. This information will help your Provider to determine how to help reduce your pain. Today you had a procedure for pain in your . Your pain level before the procedure in this area was 5/10. Your pain level immediately after your procedure was 0/10. Time 9:45 Pain Score # Comments-% pain relief 1 hour 10:45 2 hours 11:45 3 hours 12:45 4 hours 1:45 Please call the nurse in the Pain Management Center a day or two after your procedure and report the information above. She will assess your response to the procedure, and will recommend appropriate follow-up. Malick Ramirez Special instructions documented in this encounter Medications at Time of Discharge Medication Sig Dispensed Refills Start Date End Date BD Luer-Kg Syringe 3 mL 22 gauge x 1 Syringe USE TWICE MONTHLY 09/23/2020 flu vac [id number] 36mos up,PF, (Afluria Qd 2019-,3yr up,,PF,) 60 [...] capsule Take 20 mg by mouth daily. azithromycin (Zithromax) 250 mg Tablet 500 mg as needed. 02/03/2021 acetaminophen (Tylenol) 500 mg Tablet 500 mg as needed. 05/22/2019 12/03/2020 Afluria Qd 2018-,3yr up,,PF, 60 mcg (15 mcg x 4)/0.5 mL Syringe inject 0.5 milliliters intramuscularly 04/05/2019 12/03/2020 BD Luer-Kg Syringe 3 mL 25 gauge x 1 Syringe USE MONTHLY WITH B12 07/26/2019 allopurinol (ZYLOPRIM) 300 mg tablet Take 300 mg by mouth daily. 01/01/2023 testosterone (ANDROGEL) 1 %(50 mg/5 gram) GlPk 50 MG/5 GRAM, TD, Once daily 07/11/2010 12/16/2020 documented as of this encounter H&P Notes * John Honeycutt MD - 12/02/2020 9:42 AM EDT Patient Name: Grayson Dodd III Patient Age: 60 y.o. Birthdate: 1960 Admit date: 12/02/2020 Attending Physician: Emerson Chand MD PREPROCEDURE HISTORY AND PHYSICAL Date of Visit: December 02, 2020 Chief Complaint: Neck pain HPI: Subjective Grayson Dodd III is a 60 y.o. male who presents today for cervical medial branch blocks. This ishis second block. The history is obtained from the patient, and I have reviewed medical records provided by the referring physician and located in the electronic medical record to fill in gaps in the patient's recollection of events, treatments and outcomes. LOCATION: Left neck PAIN LEVEL AT REST 10/11, 10 with modified kemps PAST MEDICAL HISTORY: Past Medical History: Diagnosis [...] Strain: ??? Difficulty of Paying Living Expenses: Food Insecurity: ??? Worried About Running Out of Food in the Last Year: ??? Ran Out of Food in the Last Year: Transportation Needs: ??? Lack of Transportation (Medical): ??? Lack of Transportation (Non-Medical): Physical Activity: ??? Days of Exercise per Week: ??? Minutes of Exercise per Session: ALLERGIES: Dilaudid [hydromorphone (pf)], Chlorhexidine gluconate, Oxycodone-acetaminophen, Pollen extracts, and Telfa [adhesive bandage] MEDICATIONS: Medications 12/02/20 0808 Medication Sig Taking? acetaminophen (Tylenol) 500 mg Tablet 500 mg as needed. Yes Afluria Qd ,3yr up,,PF, 60 mcg (15 mcg x 4)/0.5 mL Syringe inject 0.5 milliliters intramuscularly Yes BD SafetyGlide Needle 25 x 5/8 Needle EVERY 2 WEEKS WITH TESTOSTERONE Yes BD SafetyGlide Needle 25 gauge x 1 Needle Yes BD Luer-Kg Syringe 3 mL 25 gauge x 1 Syringe USE MONTHLY WITH B12 Yes irbesartan (AVAPRO) 75 mg Tablet daily. Yes cyanocobalamin, vitamin B-12, 1,000 mcg/mL Solution Yes FLOVENT HFA 220 mcg/actuation HFA Aerosol Inhaler as needed. Yes folic acid (FOLVITE) 1 mg Tablet daily. Yes meTOPROLOL succinate (TOPROL-XL) 25 mg Tablet Sustained Release 24 hr daily. Yes allopurinol (ZYLOPRIM) 300 mg tablet Take 300 mg by mouth daily. Yes aspirin 81 mg EC tablet Take 81 mg by mouth daily. Yes albuterol-ipratropium (COMBIVENT) 18-103 mcg/actuation inhaler Inhale 2 puffs into the lungs every 6 hours as needed. Yes omeprazole (PRILOSEC) 20 mg capsule Take 20 mg by mouth daily. Yes testosterone (ANDROGEL) 1 %(50 mg/5 gram) GlPk 50 MG/5 GRAM, TD, Once daily Yes azithromycin (Zithromax) 250 mg Tablet 500 mg as needed. flu vac [id number] 36mos up,PF, (Afluria Qd 2019-,3yr up,,PF,) 60 mcg (15 mcg x 4)/0.5 mL Syringe Afluria Qd 2019- (36 mos up)(PF)60 mcg (15 mcg x4)/0.5 mL IM syringe ADM 0.5ML IM UTD ROS: Pt denies recent fever, chills, infection, wounds, hospitalizations, ED visits, use of antibiotics.Otherwise, as described above. PHYSICAL EXAM: BP 140/77 SpO2 100% General: patient well developed and is non-distressed Head: normocephalic and atraumatic CV: normal rate, normal rhythm Pulmonary: effort and breath sounds normal, no wheezing Skin: non-diaphoretic and no rashes noted MSK: positive modified Kemps on the left Physical Exam RADIOLOGIC DATA: Relevant imaging of the was reviewed independently by me today. No results found. No results found. No results found. LABS/DX RESULTS: No results found for: PLATELET No results found for: HA1C Labs reviewed and no new labs pertinent to today's procedure. ASSESSMENT: No diagnosis found. PLAN: No medical, surgical, imaging, or social/psychological contraindications have been identified. Proceed with left CMBB C3,4,5,6 John Honeycutt MD Pain Management Fellow [address] [phone] / [facility] documented in this encounter Miscellaneous Notes * Op Note - Emerson Chand MD - 12/02/2020 9:07 AM EDT Pain Management Operative Note Patient Name: Grayson Dodd III : [id number] MR#: [id number] Case Date: 12/02/2020 Surgeon: Surgeon(s) and Role: * Emerson Chand MD - Primary * John Honeycutt MD - Fellow Present on Admission: Cervical spondylosis Postoperative diagnosis: Same Procedure(s) (LRB): INJECTION, FACET JOINT,W/FLUORO, CERVICAL, SINGLE (WRVU 1.82) (Left) INJECTION, FACET JOINT,W/FLUORO, CERVICAL, SECOND (WRVU 1.16) (Left) INJECTION, FACET JOINT,W/FLUORO, CERVICAL, THIRD/ADDTNL (WRVU 1.16) (Left) PROCEDURE NOTE CERVICAL MEDIAL BRANCH BLOCKS- LEFT C3, C4, C5 and C6 MBB's Date of Service: 12/02/2020 Patient: Grayson Dodd III Provider: Emerson Chand MD Grayson Dodd III has been referred to the Pain Management Center for cervical medial branch blocks. Mr. Dodd was interviewed and the medical record were reviewed. There were no medical, pharmacologic, radiographic or other structural contraindications to attempting fluoroscopically guided local anesthetic cervical medial branch blocks. Risks and potential side effects were discussed. We also discussed the potential benefit(s) of the procedure with Mr. Dodd, and his voiced concerns were addressed. After he was completely informed about the procedure, the printed consent form was signed. A standard time-out procedure was performed. Mr. Dodd was placed in the lateral decubitus position on the fluoroscopy table with the effected side up. Automated blood pressure cuff and pulse oximeter were applied. The skin entry points for approaching the anatomic target points of the segmental medial branches of Left C3, C4, C5 and C6 wereidentified with fluoroscopy and marked. The skin at the target site area was thoroughly prepared with Chlorhexidine. The skin was then draped. Next, a 25 gauge 2.5 spinal needle was placed under fluoroscopic guidance down on to the target point (the articular pillar) for each respective segmental medial branch. Position was confirmed in A/P and lateral views. Aspiration revealed no blood or clear fluid. Next, 0.25ml of Omnipaque 240 was injected at each level. No contrast following a vascular or neural pattern was visualized under continuous fluoroscopy. Next, 0.5 ml of preservative-free 0.25% bupivacaine was injected at each level. Mr. Moffetts vital signs were stable throughout the procedure and were as recorded in the docflowsheet by the nursing staff. Provacative testing using the Modified Yip's facet loading test Left side Directly before the block VAS (0-10) = 9 5 minutes after the block VAS (0-10) = 0 Percentage relief obtained with this diagnostic block 100% Follow up plans and appointments were discussed with Mr. Dodd. Mr. Dodd was instructed to keep careful note of how the usual pain was modified by these injections. Specifically, the patient was asked to keep a pain diary for the next 24 hours using a numeric pain scale of 0-10 and report these results at the follow-up visit. Post procedure instruction was given as documented in the nursing documentation and having met discharge criteria, he was discharged from the Pain Management Center. Based on the medial branches blocked today, if they patient has adequate relief and we are able to proceed to radiofrequency ablation, the treatment should result in the denervation of the left C3-4,C4-5 and C5-6. We would expect to denervate a total of 3 facets during the radiofrequency ablation. COMMENTS: He will call back with his 0-4 hour post-procedure pain scores. The procedure was performed by Dr. Honeycutt under my supervision. I was the attending physician supervising the fellow in the above care and I was present with the fellow for the entire procedure. Emerson Chand MD Attending Physician [facility] [place] [address] / CC: Didier Romero MD [address] [place] [phone] documented in this encounter Plan of Treatment Upcoming Encounters Date Type Department Care Team (Late st Contact Info) Description 01/03/2024 8:15 AM EDT Office Visit Dermatology at [address] [place] [phone] Jake Galvez MD [address] [facility] [place] [address] documented as of this encounter Visit Diagnoses Not on filedocumented in this encounter Active and Recently Administered Medications Times are shown in EDT. PRN Medication Order 11/30/2020 12/01/2020 12/02/2020 BUpivacaine (pf) (Marcaine) (2.5 mg/mL) 0.25% injection (CANCELED) ONCE PRN, Starting on Ginger 12/02/20 at 0920, Until Ginger 12/02/20 at 1145, Intra-Operative (Intra-Procedure), Routine 0920 (Given - Provid er: John Honeycutt MD - Comment: cervical MBB) iohexoL (Omnipaque) (240 mg/mL) injection solution (CANCELED) ONCE PRN, Starting on Ginger 12/02/20 at 0908, Until Ginger 12/02/20 at 1145, Intra-Operative (Intra-Procedure), Routine 0908 (Given - Provid er: John Honeycutt MD - Comment: Cervical MBB) lidocaine (pf) (Xylocaine) (10 mg/mL) 1% injection (CANCELED) ONCE PRN, Starting on Ginger 12/02/20 at 0938, Until Ginger 12/02/20 at 1145, Intra-Operative (Intra-Procedure), Routine 0938 (Given - Provid er: John Honeycutt MD) documented in this encounter Care Teams Edge Cutting Machine Operator Relationship Specialty Start Date End Date Didier Romero MD [address] [place] [address] PCP - General Family Medicine 01/11/17 documented as of this encounter
--- OUTSIDE RECORDS SUMMARY | 2023-12-25 18:48 | XMS_ITS | Encounter Summary ---
[place] [address] Care Team Providers Care Porter [employer] Name Role Phone Didier Romero MD Primary Care Provider + Encounter Details Date Type Department Care Team (Late st Contact Info) Description 10/15/2020 Notes Only [facility] [place] [phone] Mary Mcneil Social History Tobacco Use Types Packs/Day Years [...] as of this encounter Progress Notes * Mary Mcneil - 10/15/2020 3:45 PM EDT Procedure:left cmbb MRI required? no (If yes, verify that updated MRI is in eDH) (Atlanto-Axial Joint injection, VAUGHN; 1 year or <)(Caudal NABIL, LESI, Thoracic NABIL, TFESI Lumbar & Cervical; 2 years or <) RISK LEVEL: High Are you on any blood thinners? no (If yes, specify medication type and prescribing provider for anticoagulant hold request) Medication: Prescribing provider: Reminder: Coumadin requires an INR lab 1 hour prior to procedure Are you taking any NSAIDs? yes Type of NSAID: asprin Are you currently taking any oral steroids (i.e. prednisone) or have you had a steroid injection within the past two weeks? no If YES to oral steroids: Have you been taking more than 40mg a day for more than 14 days? If no, okay to schedule. Are you currently taking or have you recently been treated with antibiotics? no Have you been in the ER or hospitalized recently? no If yes. Why? Do you have any allergies to anesthetics or steroids? no Are you diabetic? no (In the case of type I diabetes, steroids injections can make blood sugar spike) Is this being billed to workers comp or your regular insurance (verify insurance)? Worker's Comp yes Insurance: Have you had or are you scheduled to have a COVID vaccine? No Date of First Dose Date of Second Dose Is this a STEROID injection (anything other than RFA, MBB, Lumbar Puncture, or Blood Patch)? No If you have a date set for your COVID vaccine -1st or 2nd dose-, please schedule your steroid injection at least 2 weeks before, or 1 week after your vaccine. If you already have a date set for your steroid injection, please schedule your vaccine, either at least 1 week before, or at least 2 weeks after the date of your injection. Spine Intervention Society Recommendation: Fact: There is currently no direct evidence to suggest that a corticosteroid injection before or after the administration of an mRNA COVID-19 vaccine decreases the efficacy of the vaccine. However, based on the known timeline of ahyirhssworp-spojpujfz-iekmril (HPA) axis suppression following epidural and intraarticular corticosteroid injections, and the timeline of the reported peak efficacy of the Pfizer-BioNTech and Moderna vaccines, physicians should consider timing an elective corticosteroid injection such that it is administered no less than two weeks prior to a COVID-19 mRNA vaccine dose and no less than two weeks following a COVID-19 mRNA vaccine dose, whenever possible. documented in this encounter Plan of Treatment Upcoming Encounters Date Type Department Care Team (Late st Contact Info) Description 01/03/2024 8:15 AM EDT Office Visit Dermatology at [place] [address] [facility] [place] [address] Jake Galvez MD [address] [facility] [address] documented as of this encounter Visit Diagnoses Not on filedocumented in this encounter Care Teams [employer] Relationship Specialty Start Date End Date Didier Romero MD [address] [place] [id number] PCP - General Family Medicine 01/11/17 documented as of this encounter
--- OUTSIDE RECORDS SUMMARY | 2023-12-25 18:48 | XMS_ITS | Encounter Summary ---
[place] [address] Care Team Providers Care Septic Tank Servicer Name Role Phone Didier Romero MD Primary Care Provider + Encounter Details Date Type Department Care Team (Late st Contact Info) Description 07/06/2020 Telephone [place] [phone] Kayley Mckeon, RN Social History Tobacco Use [...] Telephone Encounter - Kayley Mckeon RN - 07/06/2020 1:40 PM EST [facility] MBB/RF Risk Stratification Post-procedure phone call from patient to report her response to the cervical medial branch block procedure performed on 07/06/20 in the Pain Management Center by Marco A Chand MD. This is patient's: second medial branch block. Patient reports that after the procedure she experienced: X_ Patient reported post-block numeric pain scale: 1 /10 (average pain since procedure) _X_ Post-procedure pain has been reduced by 85%. (> 80% Medicare/MVP/Medicaid) _X_ If relief > 80% with ability to perform painful maneuvers; schedule 2nd MBB: no _X_ Post-procedure pain has been reduced by 85%. (> 50% all other insurers) _X_ Pain relief: moderate If pain is reduced, it lasted: Yes less than 4 hours Changes in functional status post procedure: After 4 hours, pt drove home, could turn his neck without having to look in mirrirs Pertinent recent trauma or surgery? no Have you had any steroid injections anywhere in your body within the last two weeks? no Patient taking, or having taken oral steroids in the last 2 wks (14 days)? no Patient taking any NSAIDs? no Patient taking Aspirin or Aggrenox (dipyridamole) no If yes, dose: 81 mg Is this self prescribed or ordered by a provider: PCP If ordered; Name of prescribing provider: Dr. Romero If taking ASA; please ask the following questions to assist in determining ASA hold instructions - h/o Myocardial Infarction (ND): no - h/o Coronary Artery Disease (CAD): no - h/o Stroke: no: no - h/o Arteriosclerotic Vascular Disease (ASCVD): no - h/o Transient Ischemic Attack (TIA): yes - h/o Atrial Fibrillation (AFib): no - h/o Deep Vein Thrombosis (DVT): no Diagnosed/treated for an active infection in the past 2 wks? no Patient taken an antibiotic in the past 2 wks? no Abx taken routinely as prophylaxis? no Per pt report; any current sxs suggestive of active infection? no Patient has pacemaker/defibrillator: no MARTA Questions pertaining to Risk Stratification: Patient taking anticoagulants/ Antiplatelets, or pt is taking concurrent ASA/NSAIDS)? no Pertinent Medical History (per active problem list: 's self report) - h/o throbocytopenia: no - h/o Bleeding tendency: no - h/o Cirrhosis: no - h/o Liver disease; abnormal liver function: no - h/o Chronic Kidney Disease (CKD); abnormal renal/kidney function: no - Dialysis: no Per MARTA Guidelines/[facility] Guidelines (taking into account pt's e-DH problem list and pt's self report as noted above; the requested procedure is stratified as a: Moderate Risk Procedure Based on the information provided above and after discussion with the patient, the following actions will be taken: _X_ Patient meets criteria for radiofrequency treatment and would like to proceed with a right cervical spine at C3, C4, C5 and C6 Radiofrequency procedure with Marco A Chand MD. . Disposition: Patient transferred to ship mate to arrange requested injection. Patient's questions regarding requested procedure were answered and patient verbalized understanding. knows how to contact the [facility] and understands that he may do so atany time should he develop any questions or concerns. documented in this encounter Plan of Treatment Upcoming Encounters Date Type Department Care Team (Late st Contact Info) Description 01/03/2024 8:15 AM EDT Office Visit Dermatology at [place] [address] [facility] [place] [address] Jake Galvez MD [address] [facility] [place] [address] documented as of this encounter Visit Diagnoses Not on filedocumented in this encounter Care Teams Septic Tank Servicer Relationship Specialty Start Date End Date Didier Romero MD [address] [place] [address] PCP - General Family Medicine 01/11/17 documented as of this encounter
--- OUTSIDE RECORDS SUMMARY | 2023-12-25 18:48 | XMS_ITS | Encounter Summary ---
[place] [address] Care Team Providers Care Automobile Service Writer Name Role Phone Didier Romero MD Primary Care Provider + Encounter Details Date Type Department Care Team (Late st Contact Info) Description 06/14/2020 Telephone [place] [phone] Jerson Harris, RN Social History Tobacco Use Types Packs/Day [...] encounter Miscellaneous Notes * Telephone Encounter - Jerson Harris RN - 06/14/2020 8:13 AM EST Grayson Dodd III :1960 Message left: I left a message on answering machine Mr. Dodd at 8:13 AM regarding his upcoming Right cervical medial branch block with Dr. Marco A Chand MD. Message included the followin. Patient instructed to arrive at 0745 (30 minutes prior to procedure start time) on 06/15/2020 (date of procedure) with their tow car driver. 2. Following instructions left in the message: - Bring Updated list of medications including dosage and reason for taking. - Call the Pain Clinic Nurse at for: ~Procedure instructions. ~If you are taking antibiotics. ~If you have any signs or symptoms of infection, cold or flu. ~If you have any skin breakdown (rashes, cysts, or abscess.) ~If you are taking anticoagulants / blood thinners (Plavix, Pletal, Lovenox, Coumadin, etc). ~If you had any steroid injections anywhere in your body within the last two weeks? [facility] Arthur documented in this encounter Plan of Treatment Upcoming Encounters Date Type Department Care Team (Late st Contact Info) Description 01/03/2024 8:15 AM EDT Office Visit Dermatology at [place] [address] [facility] [place] [address] Jake Galvez MD [address] [facility] [place] [address] documented as of this encounter Visit Diagnoses Not on filedocumented in this encounter Care Teams Automobile Service Writer Relationship Specialty Start Date End Date Didier Romero MD [address] [place] [address] PCP - General Family Medicine 01/11/17 documented as of this encounter
--- OUTSIDE RECORDS SUMMARY | 2023-12-25 18:48 | XMS_ITS | Encounter Summary ---
[place] [address] Care Team Providers Care Victorian Literature Professor Name Role Phone Didier Romero MD Primary Care Provider + Encounter Details Date Type Department Care Team (Late st Contact Info) Description 01/31/2021 Telephone [place] [phone] Denia Egan LNA Social History Tobacco Use Types Packs/Day Years [...] encounter Miscellaneous Notes * Telephone Encounter - Denia Egan - 01/31/2021 1:37 PM EDT Contact made with patient or sales representative trainee as identified in contacts 1. Patient instructed to arrive at 0830 on 02/03/21 with their driver operator for their caudal epidural injection procedure. Please plan to spend about 2 hours at the center. (3 hours for RFA) 2. Has pt started any new medications or supplements in the past two weeks? No 3. Have any of the following occurred within the two weeks before the procedure date? a. Patient is having a Covid vaccine or other vaccine No b. Patient has any symptoms of illness such as: cough, sore throat, fever, N/V/D No c. Patient is taking antibiotics to treat an infection No d. Patient has any skin rashes, breakdown, blisters or open wounds No e. Patient has had any hospitalizations, ED visits, surgery, other procedure, dental procedure No f. Patient has taken oral steroids or had a steroid injection No 4. Has the patient's pain resolved or significantly improved such as a rating of 3/10 or less? No 5. Was patient instructed to stop any medications? No if yes: a. Name of medication(s): b. Confirm date of last dose: 6. Is patient having a nerve block: No a. If yes instructed to not take any pain medication for 12 hours before your procedure. 7. Patient instructed to take any prescribed medications that they were not told to stop, especially blood pressure medication, because their procedure may be cancelled if their blood pressure is toohigh. 8. Was patient instructed to follow NPO guidelines: [...] products, no milk including soy, oat, almond. 9. Does patient have a pacemaker? No a. If yes, document that cardiology was called and notified. 10. Additional notes if applicable: Patient expressed understanding and agreement with instructions Yes Patient denies further questions Yes SEA Sykes documented in this encounter Plan of Treatment Upcoming Encounters Date Type Department Care Team (Late st Contact Info) Description 01/03/2024 8:15 AM EDT Office Visit Dermatology at [place] [address] [place] [phone] Jake Galvez MD [address] [facility] DERMAT[facility]Y [place], [place] [phone] documented as of this encounter Visit Diagnoses Not on filedocumented in this encounter Care Teams Victorian Literature Professor Relationship Specialty Start Date End Date Didier Romero MD [address] [place] [address] PCP - General Family Medicine 01/11/17 documented as of this encounter
--- OUTSIDE RECORDS SUMMARY | 2023-12-25 18:48 | XMS_ITS | Encounter Summary ---
[place] [address] Care Team Providers Care Second Floor Operator Name Role Phone Didier Romero MD Primary Care Provider + Reason for Visit * Auth/Cert Specialty Diagnoses / Procedures Referred By Contac t Referred To Contact Diagnoses Cervical spondylosis Cervical Spondylosis Procedures PRO DSTR PARAVERTEBRAL FCT JNT NRVES CERVICAL OR THORACIC SINGLE RADIOFREQUENCY ABLATION,SINGLE FACET JOINT,CERVICAL (WRVU 3.84) Referral ID Status Reason Start Date Expiration Date Visits Re quested Visits Authorized [id number] 1 1 Encounter Details Date Type Department Care Team (Late st Contact Info) Description 12/16/2020 7:30 AM EDT - 12/16/2020 8:30 AM EDT Surgery [place] [phone] Emerson Chand MD [facility] [place] [place] [address] RADIOFREQUENCY ABLATION,SINGLE FACET JOINT,CERVICAL (WRVU 3.32) Social History Tobacco Use Types Packs/Day Years [...] Sign Reading Time Taken Comments Blood Pressure 184/104 12/16/2020 8:30 AM EDT Pulse - - Temperature - - Respiratory Rate 20 12/16/2020 7:08 AM EDT Oxygen Saturation 99% 12/16/2020 8:30 AM EDT Inhaled Oxygen Concentration - - Weight 90.7 kg (200 lb) 12/16/2020 7:08 AM EDT Height 177.8 cm (5' 10) 12/16/2020 7:08 AM EDT Body Mass Index 28.7 12/16/2020 7:08 AM EDT documented in this encounter Discharge Instructions * Discharge Instructions* Nagi Ann - 12/16/2020 8:51 AM EDT Pain Management Center Discharge Instructions: You were seen today by Surgeon(s): Emerson Chand MD The following was performed: Procedure(s) (LRB): RADIOFREQUENCY ABLATION,SINGLE FACET JOINT,CERVICAL (WRVU 3.84) (Left) It is normal that [...] your bladder 4-6 hours after your procedure. {CHECK BOX SELECTION:08650} If you have diabetes, monitor your blood sugars frequently. If your blood sugar increases and is of concern, contact your Primary Care Provider. You received the following medications: Medications Given During Procedure Date/Time Order Dose Route Action {\field{\*\fldinst HYPERLINK ecmd:ord?[id number]}{\fldrslt \cf18 12/16/2020 0821}} dexamethasone (PF) (Decadron) (10 mg/mL) injection 10 mg Intra-articular Given {\field{\*\fldinst HYPERLINK ecmd:ord?xt=[id number]}{\fldrslt \cf18 12/16/2020 0815}} lidocaine (pf) (Xylocaine) (20 mg/mL) 2% injection 5 mL Other Given During regular business hours, [...] or proceed to your local emergency department. NAGI ANN Special instructions documented in this encounter Medications at Time of Discharge Medication Sig Dispensed Refills Start Date End Date BD Luer-Kg Syringe 3 mL 22 gauge x 1 Syringe USE TWICE MONTHLY 09/23/2020 testosterone cypionate (DepoTESTOSTERONE Cypionate) (200mg/mL) injection Inject 100 mg into the muscle every 14 days. flu vac [id number] 36mos up,PF, (Afluria Qd 2019-,3yr up,,PF,) 60 [...] mg Tablet 500 mg as needed. 02/03/2021 BD Luer-Kg Syringe 3 mL 25 gauge x 1 Syringe USE MONTHLY WITH B12 07/26/2019 021 allopurinol (ZYLOPRIM) 300 mg tablet Take 300 mg by mouth daily. 01/01/2023 documented as of this encounter H&P Notes * Emerson Chand MD - 12/16/2020 7:57 AM EDT Patient Name: Grayson Dodd III Patient Age: 60 y.o. date: 1960 Admit date: 12/16/2020 Attending Physician: Emerson Chand MD PREPROCEDURE HISTORY AND PHYSICAL Date of Visit: December 16, 2020 Chief Complaint: Left sided neck pain HPI: Subjective Grayson Dodd III is a 60 y.o. male who presents today for Procedure: Left C3, C4, C5 and C6 MBBs Referred by Geoff Lanier MD The patient denies any recent NSAID or anticoagulation. The patient denies any allergy to local anesthetics, contrast dye, or steroids. The history is obtained from the patient, and I have reviewed medical records provided by the referring physician and located in the electronic medical record to fill in gaps in the patient's recollection of events, treatments and outcomes. LOCATION: Left sided neck pain PAIN LEVEL AT REST 6/10 PAST MEDICAL [...] to Encounter Medication Sig Dispense Refill ??? testosterone cypionate (DepoTESTOSTERONE Cypionate) (200mg/mL) injection Inject 100 mg into themuscle every 14 days. ??? azithromycin (Zithromax) 250 mg Tablet 500 mg as needed. ??? flu vac [id number] 36mos up,PF, (Afluria Qd ,3yr up,,PF,) 60 mcg (15 mcg x 4)/0.5 mL Syringe Afluria Qd (36 mos up)(PF)60 mcg (15 mcg x4)/0.5 mL IM syringe ADM 0.5ML IM UTD ??? BD SafetyGlide Needle 25 x 5/8 Needle EVERY 2 WEEKS WITH TESTOSTERONE ??? BD SafetyGlide Needle 25 gauge x 1 Needle ??? BD Luer-Kg Syringe 3 mL 25 gauge x 1 Syringe USE MONTHLY WITH B12 ??? irbesartan (AVAPRO) 75 mg Tablet daily. ??? cyanocobalamin, vitamin B-12, 1,000 mcg/mL Solution 0 ??? FLOVENT HFA 220 mcg/actuation HFA [...] Take 20 mg by mouth daily. ??? testosterone (ANDROGEL) 1 %(50 mg/5 gram) GlPk 50 MG/5 GRAM, TD, Once daily FAMILY HISTORY: No family history on file. [...] Week: ??? Minutes of Exercise per Session: ROS: Pt denies recent fever, chills, infection, wounds, hospitalizations, ED visits, use of antibiotics.Otherwise, as described above. PHYSICAL EXAM: BP (!) 163/100 Resp 20 Ht 177.8 cm (5' 10) Wt 90.7 kg (200 lb) SpO2 97% BMI 28.70 kg/m?? Physical Exam Constitutional: Pt oriented to [...] in the last 7068 hours. ASSESSMENT: Assessment Cervical spondylosis PLAN: Proceed with planned left C3, C4, C5 and C6 MBBs. Addressed all questions and concerns. Risks and benefits discussed with patient. No contraindications to the procedure at this time, will proceed. Emerson Chand MD Attending Physician [facility] [place] [address] / documented in this encounter Miscellaneous Notes * Op Note - Emerson Chand MD - 12/16/2020 8:14 AM EDT Pain Management Operative Note Patient Name: Grayson Dodd III : [id number] MR#: [id number] Case Date: 12/16/2020 Surgeon: Surgeon(s) and Role: * Emerson Chand MD - Primary Present on Admission: Cervical spondylosis Postoperative diagnosis: Same Procedure(s) (LRB): RADIOFREQUENCY ABLATION,SINGLE FACET JOINT,CERVICAL (WRVU 3.84) (Left) CERVICAL MEDIAL BRANCH RADIOFREQUENCY- LEFT C3, C4, C5 and C6 Date of Service: 12/16/2020 Patient: Grayson Dodd III Provider: Emerson Chand [...] C5 and C6 were identified with fluoroscopic guidance. Following thorough Chlorhexidine preparation of the skin and draping and 1% lidocaine infiltration of the skin entry points and subcutaneous tissues, a 10cm, 20guage, 10mm active tip radiofrequency cannula was placed under fluoroscopic guidance at the anatomic course of each respective segmental medial branch. Each placement was stimulated at 50Hz and up to 1v in attempt to reproduce some component of Grayson J Jarrodper III???s usual pain. Each placement was stimulated at 2Hz and up to 3v without any evidence of distal myotomal stimulation. 0.5ml of 2% lidocaine was injected each level. At each placement a continuous mode radiofrequency treatment was done at 90 degrees C for 90secs then repeated. A mixture of Lidocaine 1% 3 ml with Dexamethasone 10 mg (1 ml at each needle placement) was injected at the end of the procedure. This radiofrequency treatment should result in the denervation of the left C3-4, C4-5 and C5-6. A total of 3 facets were expected to be denervated from today's treatment. Mr. Dodd's vital signs were stable throughout the procedure and were as recorded in the docflowsheet by the nursing staff. PLAN: Follow up with Dr. Lanier. Post procedure instruction was given as documented in the nursing documentation and having met discharge criteria, he was discharged from the Pain Management Center. I performed the procedure. Emerson Chand MD Attending Physician [facility] [place] [address] / CC: Didier Romero MD [address] [place] [address] [place] [address] documented in this encounter Plan of Treatment Upcoming Encounters Date Type Department Care Team (Late st Contact Info) Description 01/03/2024 8:15 AM EDT Office Visit Dermatology at [place] [address] [facility] [place] [phone] Jake Galvez MD [address] [facility] [place] [address] documented as of this encounter Visit Diagnoses Not on filedocumented in this encounter Administered Medications Inactive Administered Medications - up to 3 most recent administrations Medication Order MAR Action Action Date Dose Rate Site dexamethasone (PF) (Decadron) (10 mg/mL) injection ONCE PRN, Starting on Ginger 12/16/20 at 0821, Until Ginger 12/16/20 at 1006, Intra-Operative (Intra-Procedure), Routine Given 12/16/2020 8:21 AM EDT 10 mg lidocaine (pf) (Xylocaine) (20 mg/mL) 2% injection ONCE PRN, Starting on Ginger 12/16/20 at 0815, Until Ginger 12/16/20 at 1006, Intra-Operative (Intra-Procedure), Routine Given 12/16/2020 8:15 AM EDT 5 mLs documented in this encounter Active and Recently Administered Medications Times are shown in EDT. PRN Medication Order 12/14/2020 12/15/2020 12/16/2020 dexamethasone (PF) (Decadron) (10 mg/mL) injection (CANCELED) ONCE PRN, Starting on Ginger 12/16/20 at 0821, Until Ginger 12/16/20 at 1006, Intra-Operative (Intra-Procedure), Routine 0821 (Given - Provid er: Emerson Chand MD) lidocaine (pf) (Xylocaine) (20 mg/mL) 2% injection (CANCELED) ONCE PRN, Starting on Ginger 12/16/20 at 0815, Until Ginger 12/16/20 at 1006, Intra-Operative (Intra-Procedure), Routine 0815 (Given - Provid er: Emerson Chand MD - Comment: intrarticular) documented in this encounter Care Teams Second Floor Operator Relationship Specialty Start Date End Date Didier Romero MD [facility] [place] [address] PCP - General Family Medicine 01/11/17 documented as of this encounter
--- OUTSIDE RECORDS SUMMARY | 2023-12-25 18:48 | XMS_ITS | Encounter Summary ---
Author Organization Formerly [facility] Address [facility] [place] [address] Care Team Providers Care Lower In Supervisor Name Role Phone Didier Romero MD Primary [...] Expiration Date Visits Re quested Visits Authorized [id number] 1 1 Encounter Details Date Type Department Care Team (Late st Contact Info) Description 07/26/2020 7:30 AM EST - 07/26/2020 8:30 AM EST [place] [phone] Emerson Chand MD [facility] [place] [address] RADIOFREQUENCY ABLATION,SINGLE FACET JOINT,CERVICAL (WRVU 3.32) Social [...] Sign Reading Time Taken Comments Blood Pressure 146/98 07/26/2020 8:30 AM EST Pulse - - Temperature - - Respiratory Rate 18 07/26/2020 8:30 AM EST Oxygen Saturation 99% 07/26/2020 8:30 AM EST Inhaled Oxygen Concentration - - Weight 87.1 kg (192 lb) 07/26/2020 7:15 AM EST Height 177.8 cm (5' 10) 07/26/2020 7:15 AM EST Body Mass Index 27.55 07/26/2020 7:15 AM EST documented in this encounter Discharge Instructions * Discharge Instructions* Kayley Mckeon RN - 07/26/2020 8:54 AM EST Pain Management Center Discharge Instructions: You were seen today by Surgeon(s): Emerson Chand MD The following was performed: Procedure(s) (LRB): RADIOFREQUENCY ABLATION,SINGLE FACET JOINT,CERVICAL (WRVU 3.84) (Right) RADIOFREQUENCY ABLATION,EACH ADD'L FACET JOINT,CERVICAL/THORACIC (WRVU 1.32) (Right) It is normal that the injection [...] 20 minutes. Do not apply heat today. [x] You received medication through an intravenous line to lessen the anxiety/pain of your procedure. DO NOT operate heavy or dangerous equipment/tools, or sign important papers today. Attempt to empty your bladder 4-6 hours after your procedure. You received the following medications: Medications Given During Procedure Date/Time Order Dose Route Action 07/26/2020 0837 dexamethasone (PF) (Decadron) (10 mg/mL) injection 10 mg Intramuscular Given 07/26/2020 0839 lidocaine (pf) (Xylocaine) (10 mg/mL) 1% injection 12 mL Other Given 07/26/2020 0836 lidocaine (pf) (Xylocaine) (20 mg/mL) 2% injection 2 mL Other Given 07/26/2020 0756 midazolam (pf) (Versed) (1 mg/mL) injection 1 mg Intravenous Given During regular business hours, please phone [...] or proceed to your local emergency department. Kayley Mckeon RN Special instructions documented in this encounter Medications at Time of Discharge Medication Sig Dispensed Refills Start Date End Date BD SafetyGlide Needle 25 x 5/8 Needle [...] capsule Take 20 mg by mouth daily. triamcinolone (KENALOG) 0.1 % Cream Apply twice daily to the treatment area on the dorsal forearms and arms until rash resolves, then discontinue 30 g 1 09/15/2019 09/06/2020 acetaminophen (Tylenol) 500 mg Tablet 500 mg as needed. 05/22/2019 12/03/2020 Afluria Qd 2019-20,3yr up,,PF, 60 mcg (15 mcg x 4)/0.5 mL Syringe inject 0.5 milliliters intramuscularly 04/05/2019 12/03/2020 BD Luer-Kg Syringe 3 mL 25 gauge x 1 Syringe USE MONTHLY WITH B12 07/26/2019 021 fluorouraciL (EFUDEX) 5 % Cream Apply twice daily for two weeks dorsal forearms & hands. Then return to clinic 40 g 1 08/18/2019 09/06/2020 clobetasol (TEMOVATE) 0.05 % Ointment Apply twice daily to affected pruritic sites until they are clear 30 g 3 01/22/2018 09/06/2020 testosterone cypionate (DEPOTESTOSTERONE CYPIONATE) 200 mg/mL Oil 01/10/2017 09/06/2020 fluocinonide (LIDEX) 0.05 % Cream Apply twice daily to left medial calf 15 g 1 01/11/2017 09/06/2020 allopurinol (ZYLOPRIM) 300 mg tablet Take 300 mg by mouth daily. 01/01/2023 testosterone (ANDROGEL) 1 %(50 mg/5 gram) GlPk 50 MG/5 GRAM, TD, Once daily 07/11/2010 12/16/2020 documented as of this encounter H&P Notes * Emerson Chand MD - 07/26/2020 9:03 AM EST Patient Name: Grayson Dodd III Patient Age: 60 y.o. Birthdate: 1960 Admit date: 07/26/2020 Attending Physician: Soraida att. providers found PREPROCEDURE HISTORY AND PHYSICAL Date of Visit: July 26, 2020 Chief Complaint: Right sided neck pain HPI: Subjective Grayson Dodd III is a 60 y.o. male who presents today for Procedure: Right C3, C4, C5 and C6 MBB's Referred by Geoff Lanier MD The patient [...] recollection of events, treatments and outcomes. LOCATION: Right sided neck PAIN LEVEL AT REST 12/11 PAST MEDICAL HISTORY: Past Medical History: Diagnosis Date ??? Gout ??? Hx of hypogonadism ??? Hypertension ??? Type 2 diabetes mellitus PAST SURGICAL HISTORY: Past Surgical History: Procedure Laterality Date ??? CARPAL TUNNEL RELEASE Right carpal tunnel release, FCR release, fasciotomy small and ring fingers ??? HERNIA REPAIR ??? ROTATOR CUFF REPAIR left shoulder x 2 ??? SPINAL FUSION ALLERGIES: Dilaudid [hydromorphone (pf)], Oxycodone-acetaminophen, Pollen extracts, and Telfa [adhesive bandage] MEDICATIONS: No current facility-administered medications on file prior to encounter. Current Outpatient Medications on File Prior to Encounter Medication Sig Dispense Refill ??? triamcinolone (KENALOG) 0.1 % Cream Apply twice daily to the treatment area on the dorsal forearms and arms until rash resolves, then discontinue 30 g 1 ??? acetaminophen (Tylenol) 500 mg Tablet ??? Afluria Qd 2018-,3yr up,,PF, 60 mcg (15 mcg x 4)/0.5 mL Syringe inject 0.5 milliliters intramuscularly ??? BD SafetyGlide Needle 25 x 5/8 Needle EVERY 2 WEEKS WITH TESTOSTERONE ??? BD SafetyGlide Needle 25 gauge x 1 Needle ??? BD Luer-Kg Syringe 3 mL 25 gauge x 1 Syringe USE MONTHLY WITH B12 ??? irbesartan (AVAPRO) 75 mg Tablet ? ? fluorouraciL (EFUDEX) 5 % Cream Apply twice daily for two weeks dorsal forearms & hands. Then return to clinic 40 g 1 ??? clobetasol (TEMOVATE) 0.05 % Ointment Apply twice daily to affected pruritic sites until they are clear 30 g 3 ??? cyanocobalamin, vitamin B-12, 1,000 mcg/mL Solution 0 ??? FLOVENT HFA 220 mcg/actuation HFA Aerosol Inhaler ??? testosterone cypionate (DEPOTESTOSTERONE CYPIONATE) 200 mg/mL Oil ??? fluocinonide (LIDEX) 0.05 % Cream Apply twice daily to left medial calf 15 g 1 ??? folic acid (FOLVITE) 1 mg Tablet ??? meTOPROLOL succinate (TOPROL-XL) 25 mg Tablet Sustained Release 24 hr ??? allopurinol (ZYLOPRIM) 300 mg tablet Take [...] Never Smoker ??? Smokeless tobacco: Never Used Substance and Sexual Activity ??? Alcohol use: [...] of Exercise per Session: Not on file ROS: Pt denies recent fever, chills, infection, wounds, hospitalizations, ED visits, use of antibiotics.Otherwise, as described above. PHYSICAL EXAM: BP (!) 158/98 Resp 21 Ht 177.8 cm (5' 10) Wt 87.1 kg (192 lb) SpO2 99% BMI 27.55 kg/m?? Physical Exam Constitutional: Pt oriented to [...] the last 7068 hours. ASSESSMENT: Assessment Cervical spondylosis, cervicalgia R sided PLAN: Proceed with planned Right C3, C4, C5 and C6 MB RFA. Addressed all questions and concerns. Risks and benefits discussed with patient. No contraindications to the procedure at this time, will proceed. Emerson Chand MD [facility] [place] [address] / documented in this encounter Miscellaneous Notes * Op Note - Emerson Chand MD - 07/26/2020 8:08 AM EST Pain Management Operative Note Patient Name: Grayson Dodd III : [id number] MR#: [id number] Case Date: 07/26/2020 Surgeon: Surgeon(s) and Role: * Emerson Chand MD - Primary Present on Admission: Right sided neck pain Postoperative diagnosis:Same Procedure(s) (LRB): RADIOFREQUENCY ABLATION,SINGLE FACET JOINT,CERVICAL (WRVU 3.84) (Right) RADIOFREQUENCY ABLATION,EACH ADD'L FACET JOINT,CERVICAL/THORACIC (WRVU 1.32) (Right) CERVICAL MEDIAL BRANCH RADIOFREQUENCY Date of Service: 07/26/2020 Patient: Grayson Dodd III Provider: Emerson Chand [...] C5 and C6 were identified with fluoroscopic guidence.Following thorough Chlorhexadine preparation of the skin and draping and [...] was done at90 degrees C for 90secs And then repeated. Lidocaine 1% 1.5 ml with Dexamethasone 5 mg (0.5 ml) wasinjected at 0.5 ml increments to each medial branch. This radiofrequency treatment should result in the [...] was discharged from the Pain Management Center. Emerson Chand MD [facility] [place] [address] / CC: Didier Romero MD [address] [place] [address] documented in this encounter Plan of Treatment Upcoming Encounters Date Type Department Care Team (Late st Contact Info) Description 01/03/2024 8:15 AM EDT Office Visit Dermatology at [address] [place] [phone] Jake Galvez MD [address] [facility] [place] [address] documented as of this encounter Visit Diagnoses Not on filedocumented in this encounter Administered Medications Inactive Administered Medications - up to 3 most recent administrations Medication Order MAR Action Action Date Dose Rate Site dexamethasone (PF) (Decadron) (10 mg/mL) injection ONCE PRN, Starting on Sun07/26/20 at 0837, Until Sun07/26/20 at 1104, Intra-Operative (Intra-Procedure), Routine Given 07/26/2020 8:37 AM EST 10 mg lidocaine (pf) (Xylocaine) (10 mg/mL) 1% injection ONCE PRN, Starting on Sun07/26/20 at 0839, Until Sun07/26/20 at 1104, Intra-Operative (Intra-Procedure), Routine Given 07/26/2020 8:39 AM EST 12 mLs lidocaine (pf) (Xylocaine) (20 mg/mL) 2% injection ONCE PRN, Starting on Sun07/26/20 at 0836, Until Sun07/26/20 at 1104, Intra-Operative (Intra-Procedure), Routine Given 07/26/2020 8:36 AM EST 2 mLs midazolam (pf) (Versed) (1 mg/mL) injection ONCE PRN, Starting on Sun07/26/20 at 0756, Until Sun07/26/20 at 1104, Intra-Operative (Intra-Procedure), Routine Given 07/26/2020 7:56 AM EST 1 mg documented in this encounter Active and Recently Administered Medications Times are shown in EST. PRN Medication Order 07/24/2020 07/25/2020 07/26/2020 dexamethasone (PF) (Decadron) (10 mg/mL) injection (CANCELED) ONCE PRN, Starting on Sun07/26/20 at 0837, Until Sun07/26/20 at 1104, Intra-Operative (Intra-Procedure), Routine 0837 (Given - Provid er: Emerson Chand MD - Comment: Right cervical RFA) lidocaine (pf) (Xylocaine) (10 mg/mL) 1% injection (CANCELED) ONCE PRN, Starting on Sun07/26/20 at 0839, Until Sun07/26/20 at 1104, Intra-Operative (Intra-Procedure), Routine 0839 (Given - Provid er: Emerson Chand MD - Comment: Right cervical RFA) lidocaine (pf) (Xylocaine) (20 mg/mL) 2% injection (CANCELED) ONCE PRN, Starting on Sun07/26/20 at 0836, Until Sun07/26/20 at 1104, Intra-Operative (Intra-Procedure), Routine 0836 (Given - Provid er: Emerson Chand MD - Comment: Cervical RFA right) midazolam (pf) (Versed) (1 mg/mL) injection (CANCELED) ONCE PRN, Starting on Sun07/26/20 at 0756, Until Sun07/26/20 at 1104, Intra-Operative (Intra-Procedure), Routine 0756 (Given - Provid er: Kayley Mckeon RN) documented in this encounter Care Teams Lower In Supervisor Relationship Specialty Start Date End Date Didier Romero MD [address] [place] [address] PCP - General Family Medicine 01/11/17 documented as of this encounter
--- OUTSIDE RECORDS SUMMARY | 2023-12-25 18:48 | XMS_ITS | Encounter Summary ---
Author Organization [facility] [address] Care Team Providers Care Internet Ecommerce Specialist Name Role Phone Didier Romero MD Primary [...] Expiration Date Visits Re quested Visits Authorized [id number] 1 1 Encounter Details Date Type Department Care Team (Latest Contact Info) Description 07/26/2020 7:01 AM EST - 07/26/2020 9:03 AM EST Hospital [place] [address] Emerson Chand MD [facility] [place] [address] Discharge Disposition: Home Social History Tobacco Use [...] Sign Reading Time Taken Comments Blood Pressure 158/98 07/26/2020 8:50 AM EST Pulse - - Temperature - - Respiratory Rate 21 07/26/2020 8:50 AM EST Oxygen Saturation 99% 07/26/2020 8:50 AM EST Inhaled Oxygen Concentration - - [...] [facility] [place] [address] / documented in this encounter Miscellaneous Notes * Op Note - Emerson Chand MD - 07/26/2020 8:08 AM EST Pain Management Operative Note Patient Name: Grayson Dodd III : [id number] MR#: [id number] Case Date: 07/26/2020 Surgeon: Surgeon(s) and Role: [...] plans and appointments were discussed with Grayson Dueñas Yousif GARCIA. Post procedure instruction was given as documented in the nursing documentation and having met discharge criteria, he was discharged from the Pain Management Center. Emerson Chand MD [facility] [place] [address] / CC: Didier Romero MD [address] [place] [id number] documented in this encounter Plan of Treatment Upcoming Encounters Date Type Department Care Team (Late st Contact Info) Description 01/03/2024 8:15 AM EDT Office Visit Dermatology at [address] [place] [address] Jake Galvez MD [address] [facility] D[facility] [place], [place] [phone] documented as of this encounter Visit Diagnoses [...] RN) documented in this encounter Care Teams Internet Ecommerce Specialist Relationship Specialty Start Date End Date Didier Romero MD [facility] [address] PCP - General Family Medicine 01/11/17 documented as of this encounter
--- OUTSIDE RECORDS SUMMARY | 2023-12-25 18:48 | XMS_ITS | Encounter Summary ---
[place] [address] Care Team Providers Care Associate Project Manager Name Role Phone Didier Romero MD Primary Care Provider + Reason for Visit * Auth/Cert Specialty Diagnoses / Procedures Referred By Contac t Referred To Contact Diagnoses 723.1 (ICD-9-CM) - M54.2 (ICD-10-CM) - Cervicalgia 721.0 (ICD-9-CM) - M47.812 (ICD-10-CM) - Cervical spondylosis Procedures PRO INJ, DIAG/THERAPEUTIC AGENT, PARAVERTEBRAL FACET JT, CERVICAL/THORACIC, SINGLE PRO INJ, PARAVERTEBRAL FACET JT, W/IMAGE GUIDANCE, CERVICAL/THORACIC, SECOND LEVEL PRO INJ//PARAVERTEBRAL FACET JT, W/IMAGE GUIDANCE, CERVICAL/THORACIC, 3RD OR ADDL LEVL INJECTION, FACET JOINT,W/FLUORO, CERVICAL, SINGLE (WRVU 1.82) INJECTION, FACET JOINT,W/FLUORO, CERVICAL, SECOND (WRVU 1.16) INJECTION, FACET JOINT,W/FLUORO, CERVICAL, THIRD/ADDTNL (WRVU 1.16) Referral ID Status Reason Start Date Expiration Date Visits Re quested Visits Authorized [id number] 1 1 Encounter Details Date Type Department Care Team (Late st Contact Info) Description 06/15/2020 8:15 AM EST - 06/15/2020 8:45 AM EST [place] [address] Emerson Chand MD [facility] [address] INJECTION, FACET JOINT,W/FLUORO, CERVICAL, SINGLE (WRVU 1.82) Social History Tobacco Use Types Packs/Day Years [...] Sign Reading Time Taken Comments Blood Pressure 156/98 06/15/2020 8:40 AM EST Pulse - - Temperature - - Respiratory Rate 16 06/15/2020 7:40 AM EST Oxygen Saturation 98% 06/15/2020 8:45 AM EST Inhaled Oxygen Concentration - - Weight 87.1 kg (192 lb) 06/15/2020 7:40 AM EST Height 177.8 cm (5' 10) 06/15/2020 7:40 AM EST Body Mass Index 27.55 06/15/2020 7:40 AM EST documented in this encounter Discharge Instructions * Discharge Instructions* Jerson Harris RN - 06/15/2020 9:07 AM EST Pain Management Center Discharge Instructions: You were seen today by Surgeon(s): Emerson Chand MD Inozemtsev, Konstantin, MD The following was performed: Procedure(s) (LRB): INJECTION, FACET JOINT,W/FLUORO, CERVICAL, SINGLE (WRVU 1.82) (Right) INJECTION, FACET JOINT,W/FLUORO, CERVICAL, SECOND (WRVU 1.16) (Right) INJECTION, FACET JOINT,W/FLUORO, CERVICAL, THIRD/ADDTNL (WRVU 1.16) (Right) It is normal that the injection [...] During Procedure Date/Time Order Dose Route Action 06/15/2020 0902 dexamethasone (PF) (Decadron) (10 mg/mL) injection 5 mg Intra- articular Given 06/15/2020 0857 iohexoL (Omnipaque) (240 mg/mL) injection solution 1 mL Intra- articular Given 06/15/2020 0901 lidocaine (Xylocaine) (20 mg/mL) 2% injection 1.5 mL Given During regular business hours, please phone [...] or proceed to your local emergency department. Jerson Harris RN Special instructions Pain Management Center Post -Procedure Pain Log Patient: Grayson Dueñas Yousif [facility] [id number] It is important for you to keep track of your pain after your procedure that took place 06/15/2020. This information will help your Provider to determine how to help reduce your pain. Today you had a procedure for pain in your right cervical spine (neck). Your pain level before the procedure in this area was 10/10. Your pain level immediately after your procedure was 2/10. Time Pain Score # Comments % of Pain Relief 1 hour 10:00 2 hours 11:00 3 hours 12:00 4 hours 1:00 Please call the nurse in the Pain Management Center a day or two after your procedure and report the information above. They will assess your response to the procedure, and will recommend appropriate follow-up. documented in this encounter Medications at Time [...] H&P Notes * John Honeycutt MD - 06/15/2020 7:50 AM EST Patient Name: Grayson Dodd III Patient Age: 60 y.o. Birthdate: 1960 Admit date: 06/15/2020 Attending Physician: Emerson Chand MD PREPROCEDURE HISTORY AND PHYSICAL Date of Visit: June 15, 2020 Chief Complaint: Neck pain HPI: Subjective Grayson Dodd III is a 60 y.o. male who presents today for right cervical medial branch block, after referral by Dr. Lanier. The history is obtained from the patient, and I have reviewed medical records provided by the referring physician and located in the electronic medical record to fill in gaps in the patient's recollection of events, treatments and outcomes. LOCATION: Right neck PAIN LEVEL AT REST 10/10 with Kemps testing PAST MEDICAL HISTORY: Past Medical History: Diagnosis [...] Occupational History ??? 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 Financial resource strain: Not on file ??? Food insecurity Worry: Not on file Inability: Not on file ??? Transportation needs Medical: Not on file Non-medical: Not on file Tobacco Use ??? Smoking status: Never Smoker ??? Smokeless tobacco: Never Used Substance and Sexual Activity ??? Alcohol use: Yes Comment: 4-5 cans of beer a day ??? Drug use: No ??? Sexual activity: Not on file Lifestyle ??? Physical activity Days per week: Not on file Minutes per session: Not on file ??? Stress: Not on file Relationships ??? Social connections Talks on phone: Not on file Gets together: Not on file Attends sikhism service: Not on file Active member of club or organization: Not on file Attends meetings of clubs or organizations: Not on file Relationship status: Not on file ??? Intimate partner violence Fear of current or ex partner: Not on file Emotionally abused: Not on file Physically abused: Not on file Forced sexual activity: Not on file Other Topics Concern ??? Not on file Social History Narrative ??? Not on file ALLERGIES: Dilaudid [hydromorphone (pf)], Oxycodone-acetaminophen, Pollen extracts, and Telfa [adhesive bandage] MEDICATIONS: @MEDNOWREFRESH@ ROS: Pt denies recent fever, chills, infection, wounds, hospitalizations, ED visits, use of antibiotics.Otherwise, as described above. PHYSICAL EXAM: BP (!) 158/107 Resp 16 Ht 177.8 cm (5' 10) Wt 87.1 kg (192 lb) SpO2 100% BMI 27.55 kg/m?? General: patient well developed and is non-distressed Head: normocephalic and atraumatic CV: normal rate, normal rhythm Pulmonary: effort and breath sounds normal, no wheezing Skin: non-diaphoretic and no rashes noted MSK: positive modified Kemps on the right Physical Exam RADIOLOGIC DATA: MRI of the cervical spine was reviewed independently by me today. LABS/DX RESULTS: No results found for: PLATELET No results found for: HA1C Labs reviewed and no new labs pertinent to today's procedure. ASSESSMENT: No diagnosis found. PLAN: No medical, surgical, imaging, or social/psychological contraindications have been identified. Proceed with right CMBB 3,4,5,6 Does have some right-sided headaches - if do not improve consider right ONB in the future. John Honeycutt MD Pain Management Fellow [address] [phone] / [facility] documented in this encounter Miscellaneous Notes * Op Note - John Honeycutt MD - 06/15/2020 9:07 AM EST Pain Management Operative Note Patient Name: Grayson Dodd III : [id number] MR#: [id number] Case Date: 06/15/2020 Surgeon: Surgeon(s) and Role: * Emerson Chand MD - Primary * John Honeycutt MD - Fellow Present on Admission: ??? Cervical spondylosis Postoperative diagnosis: same Procedure(s) (LRB): INJECTION, FACET JOINT,W/FLUORO, CERVICAL, SINGLE (WRVU 1.82) (Right) INJECTION, FACET JOINT,W/FLUORO, CERVICAL, SECOND (WRVU 1.16) (Right) INJECTION, FACET JOINT,W/FLUORO, CERVICAL, THIRD/ADDTNL (WRVU 1.16) (Right) PROCEDURE NOTE RIGHT CERVICAL MEDIAL BRANCH BLOCKS Date of Service: 05/18/2020 Patient: Grayson Dodd III Provider: John Honeycutt MD Grayson Dodd III has been referred to the Pain Management Center for right cervical medial branch blocks. COMMENTS: preop 03/13 with Yip's testing Mr. Dodd was interviewed and the medical record were reviewed. There were no medical, pharmacologic, radiographic or other structural contraindications to attempting fluoroscopically guided local anesthetic right cervical medial branch blocks. Risks and potential [...] points of the segmental medial branches of Right C3, C4, C5 and C6 were identified with fluoroscopy and marked. The skin at the target site area was thoroughly prepared with Chlorhexadine. The skin was then drapped. Next, a 25 gauge 3.5 spinal needle was placed under fluoroscopic guidance down on to the target point (the articular pillar) for each respective segmental medial branch. Position was confirmed in A/P and leteral views. Aspiration revealed no blood or clear fluid. Next, 0.25ml of omnipaque 240 was injected at each level. No contrast following a vascular or neural pattern was visualized under continuous fluoroscopy. Next, 0.5 ml of a 2mL mixture of 1.5mL preservative Free 2% Lidocaine and 0.5mL of 10mg/mL dexamethasone was injected at each level. (49mL omnipaque and 5mg of dexamethasone was wasted) Mr. Dodd's vital signs were stable throughout the procedure and were as recorded in the docflowsheet by the nursing staff. Provacative testing using the Modified Yip's facet loading test Right side Directly before the block VAS (0-10) = 10 5 minutes after the block VAS (0-10) = 2 Percentage relief obtained with this diagnostic block 80% Any improved physical functioning directly after the blocks? Yes - improved ability to bend, rotate Follow up plans and appointments were discussed [...] should result in the denervation of the Right C4-5, C5-6 and C6-7. We would expect to denervate a total of 3 facets during the radiofrequency ablation. COMMENTS: He will call back with his 0-4 hour post-procedure pain scores. John Honeycutt MD Pain Management Fellow [address] [phone] / [facility] CC: Didier Romero MD [address] [place] [phone] Associated attestation - Emerson Chand MD - 06/18/2020 1:37 AM EST Attestation: Case Date: 06/15/2020 I was present and I participated during the entire procedure (does not need to include opening and closing). Emerson Chand MD 06/18/2020 documented in this encounter Plan of Treatment Upcoming Encounters Date Type Department Care Team (Late st Contact Info) Description 01/03/2024 8:15 AM EDT Office Visit Dermatology at [place] [address] [place] [address] Jake Galvez MD [address] [facility] DER[facility] [place], [place] [phone] documented as of this encounter Visit Diagnoses Not on filedocumented in this encounter Administered Medications Inactive Administered Medications - up to 3 most recent administrations Medication Order MAR Action Action Date Dose Rate Site dexamethasone (PF) (Decadron) (10 mg/mL) injection ONCE PRN, Starting on Sun06/15/20 at 0902, Until Sun06/15/20 at 1118, Intra-Operative (Intra-Procedure), Routine Given 06/15/2020 9:02 AM EST 5 mg iohexoL (Omnipaque) (240 mg/mL) injection solution ONCE PRN, Starting on Sun06/15/20 at 0857, Until Sun06/15/20 at 1118, Intra-Operative (Intra-Procedure), Routine Given 06/15/2020 8:57 AM EST 1 mL lidocaine (Xylocaine) (20 mg/mL) 2% injection ONCE PRN, Starting on Sun06/15/20 at 0901, Until Sun06/15/20 at 1118, Intra-Operative (Intra-Procedure), Routine Given 06/15/2020 9:01 AM EST 1.5 mLs documented in this encounter Active and Recently Administered Medications Times are shown in EST. PRN Medication Order 06/13/2020 06/14/2020 06/15/2020 dexamethasone (PF) (Decadron) (10 mg/mL) injection (CANCELED) ONCE PRN, Starting on Sun06/15/20 at 0902, Until Sun06/15/20 at 1118, Intra-Operative (Intra-Procedure), Routine 09 (Given - Provid er: John Honeycutt MD) iohexoL (Omnipaque) (240 mg/mL) injection solution (CANCELED) ONCE PRN, Starting on Sun06/15/20 at 0857, Until Sun06/15/20 at 1118, Intra-Operative (Intra-Procedure), Routine 08 (Given - Provid er: John Honeycutt MD) lidocaine (Xylocaine) (20 mg/mL) 2% injection (CANCELED) ONCE PRN, Starting on Sun06/15/20 at 0901, Until Sun06/15/20 at 1118, Intra-Operative (Intra-Procedure), Routine 09 (Given - Provid er: John Honeycutt MD) documented in this encounter Care Teams Associate Project Manager Relationship Specialty Start Date End Date Didier Romero MD [facility] [place] [address] PCP - General Family Medicine 01/11/17 documented as of this encounter
--- OUTSIDE RECORDS SUMMARY | 2023-12-25 18:48 | XMS_ITS | Encounter Summary ---
[place] [address] Care Team Providers Care Baked And Graphite Inspector Name Role Phone Didier Romero MD Primary [...] Expiration Date Visits Re quested Visits Authorized [id number] 1 1 Encounter Details Date Type Department Care Team (Late st Contact Info) Description 07/06/2020 7:30 AM EST - 07/06/2020 8:00 AM EST Surgery [place] [address] [facility] [place] [address] INJECTION, FACET JOINT,W/FLUORO, CERVICAL, SINGLE (WRVU 1.82) [...] Sign Reading Time Taken Comments Blood Pressure 132/79 07/06/2020 7:59 AM EST Pulse - - Temperature - - Respiratory Rate 16 07/06/2020 7:59 AM EST Oxygen Saturation 100% 07/06/2020 7:10 AM EST Inhaled Oxygen Concentration - - Weight 87.1 kg (192 lb) 07/06/2020 7:10 AM EST Height 177.8 cm (5' 10) 07/06/2020 7:10 AM EST Body Mass Index 27.55 07/06/2020 7:10 AM EST documented in this encounter Discharge Instructions * Discharge Instructions* Bharati Perze RN - 07/06/2020 8:32 AM EST Pain Management Center Discharge Instructions: [...] During Procedure Date/Time Order Dose Route Action 07/06/2020 08 BUpivacaine (pf) (Marcaine) (2.5 mg/mL) 0.25% injection 1.5 mL Other Given 07/06/2020 08 dexamethasone (PF) (Decadron) (10 mg/mL) injection 5 mg Intramuscular Given 07/06/2020 08 iohexoL (Omnipaque) (240 mg/mL) injection solution 1 mL Other Given During regular business hours, [...] or proceed to your local emergency department. BHARATI PEREZ RN Special instructions Pain Management Center Post -Procedure Pain Log Patient: Grayson Dodd [facility] [id number] It is important for you to keep track of your pain after your procedure that took place 07/06/2020 This information will help your Provider to determine how to help reduce your pain. Today you had a procedure for pain in your right neck Your pain level before the procedure in this area was 8/10. Your pain level immediately after your procedure was 0/10. Time Pain Score # Comments % of pain relief 1 hour 0930 2 hours 1030 3 hours 1130 4 hours 1230 Please call the nurse in the Pain [...] H&P Notes * Emerson Chand MD - 07/06/2020 12:01 AM EST Patient Name: Grayson Dodd III Patient Age: 60 y.o. date: 1960 Admit date: 07/06/2020 Attending Physician: Soraida att. providers found PREPROCEDURE HISTORY AND PHYSICAL Date of Visit: July 06, 2020 Chief Complaint: Right sided neck pain HPI: Subjective Grayson Dodd III is a 60 y.o. male who presents today for Procedure: Right C3, C4, C5 and C6 MBB's Referred by Didier Romero and evaluated by Dr. Lanier. The patient denies any recent NSAID or [...] Right sided neck PAIN LEVEL AT REST 01/11 PAST MEDICAL HISTORY: Past Medical History: Diagnosis [...] and arms until rash resolves, then discontinue (Patient not taking: Reported on 05/17/2020) 30 g1 ??? acetaminophen (Tylenol) 500 mg Tablet ??? Afluria Qd 2019-20,3yr up,,PF, 60 mcg (15 [...] forearms & hands. Then return to clinic (Patient not taking: Reported on 05/17/2020) 40 g 1 ??? clobetasol (TEMOVATE) 0.05 % Ointment Apply twice daily to affected pruritic sites until they are clear (Patient not taking: Reported on 05/17/2020) 30 g 3 ??? cyanocobalamin, vitamin B-12, 1,000 mcg/mL Solution 0 ??? FLOVENT HFA 220 mcg/actuation HFA Aerosol Inhaler ??? testosterone cypionate (DEPOTESTOSTERONE CYPIONATE) 200 mg/mL Oil ??? fluocinonide (LIDEX) 0.05 % Cream Apply twice daily to left medial calf (Patient not taking: Reported on 05/17/2020) 15 g 1 ??? folic acid (FOLVITE) [...] GlPk 50 MG/5 GRAM, TD, Once daily (Patient not taking: No sig reported) FAMILY HISTORY: No family history on file. [...] file Gets together: Not on file Attends yarsani service: Not on file Active member of [...] Social History Narrative ??? Not on file ROS: Pt denies recent fever, chills, infection, wounds, hospitalizations, ED visits, use of antibiotics.Otherwise, as described above. PHYSICAL EXAM: BP 121/65 Resp 16 Ht 177.8 cm (5' 10) Wt 87.1 kg (192 lb) SpO2 100% BMI 27.55 kg/m?? Physical Exam Constitutional: Pt [...] planned Right C3, C4, C5 and C6 MBB's. Addressed all questions and concerns. Risks and benefits discussed with patient. No contraindications to the procedure at this time, will proceed. Emerson Chand MD Attending [facility]ician [facility] [place] [address] / documented in this encounter Miscellaneous Notes * Op Note - Emerson Chand MD - 07/06/2020 8:33 AM EST Pain Management Operative Note Patient Name: Grayson Dodd III : [id number] MR#: [id number] Case Date: 07/06/2020 Surgeon: Surgeon(s) and Role: * Emerson Chand MD - Primary Present on Admission: Cervical spondylosis Right sided Postoperative diagnosis: Same Procedure(s) (LRB): INJECTION, FACET JOINT,W/FLUORO, CERVICAL, SINGLE (WRVU 1.82) (Right) INJECTION, FACET JOINT,W/FLUORO, CERVICAL, SECOND (WRVU 1.16) (Right) INJECTION, FACET JOINT,W/FLUORO, CERVICAL, THIRD/ADDTNL (WRVU 1.16) (Right) PROCEDURE NOTE CERVICAL MEDIAL BRANCH BLOCKS Date of Service: 07/06/2020 Patient: Grayson Dodd III Provider: Emerson Chand [...] Next, 0.5 ml of preservative-free 0.25% bupivacaine with dexamethasone 5 mg injected Mr. Moffetts vital signs were stable throughout the procedure and were as recorded in the docflowsheet by the nursing staff. Provacative testing using the Modified Yip's facet loading test Right side Directly before the block VAS (0-10) = 8 5 minutes after the block VAS (0-10) [...] result in the denervation of the right C3-4, C4-5 and C5-6. We would expect to denervate a total of 3 facets during the radiofrequency ablation. COMMENTS: He will call back with his 0-4 hour post-procedure pain scores. I personally performed the entire procedure. Emerson Chand MD Attending Physician [facility] [place] [address] / CC: Didier Romero MD [address] [place] [phone] documented in this encounter Plan of Treatment Upcoming Encounters Date Type Department Care Team (Late st Contact Info) Description 01/03/2024 8:15 AM EDT Office Visit Dermatology at [place] [address] [facility] [place] [address] Jake Galvez MD [address] [facility] DERMAT[facility] [place], [place] [phone] documented as of this encounter Visit Diagnoses Not on filedocumented in this encounter Administered Medications Inactive Administered Medications - up to 3 most recent administrations Medication Order MAR Action Action Date Dose Rate Site BUpivacaine (pf) (Marcaine) (2.5 mg/mL) 0.25% injection ONCE PRN, Starting on Sun07/06/20 at 0826, Until Sun07/06/20 at 1035, Intra-Operative (Intra-Procedure), Routine Given 07/06/2020 8:26 AM EST 1.5 mLs dexamethasone (PF) (Decadron) (10 mg/mL) injection ONCE PRN, Starting on Sun07/06/20 at 0827, Until Sun07/06/20 at 1035, Intra-Operative (Intra-Procedure), Routine Given 07/06/2020 8:27 AM EST 5 mg iohexoL (Omnipaque) (240 mg/mL) injection solution ONCE PRN, Starting on 07/06/20 at 0826, Until 07/06/20 at 1035, Intra-Operative (Intra-Procedure), Routine Given 07/06/2020 8:26 AM EST 1 mL documented in this encounter Active and Recently Administered Medications Times are shown in EST. PRN Medication Order 07/04/2020 07/05/2020 07/06/2020 BUpivacaine (pf) (Marcaine) (2.5 mg/mL) 0.25% injection (CANCELED) ONCE PRN, Starting on 07/06/20 at 0826, Until 07/06/20 at 1035, Intra-Operative (Intra-Procedure), Routine 825 (Given - Provid er: Emerson Chand MD) dexamethasone (PF) (Decadron) (10 mg/mL) injection (CANCELED) ONCE PRN, Starting on 07/06/20 at 0827, Until 07/06/20 at 1035, Intra-Operative (Intra-Procedure), Routine 826 (Given - Provid er: Emerson Chand MD) iohexoL (Omnipaque) (240 mg/mL) injection solution (CANCELED) ONCE PRN, Starting on 07/06/20 at 0826, Until 07/06/20 at 1035, Intra-Operative (Intra-Procedure), Routine 825 (Given - Provid er: Emerson Chand MD) documented in this encounter Care Teams Baked And Graphite Inspector Relationship Specialty Start Date End Date Didier Romero [place] [address] PCP - General Family Medicine 01/11/17 documented as of this encounter
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
--- OUTSIDE RECORDS SUMMARY | 2023-12-25 18:48 | XMS_ITS | Encounter Summary ---
Author Organization [facility] [place] [address] Care Team Providers Care Lithoduplicator Operator Name Role Phone Didier Romero MD [...] Expiration Date Visits Re quested Visits Authorized [id number] 1 1 Encounter Details Date Type Department Care Team (Late st Contact Info) Description 11/18/2020 8:00 AM EDT - 11/18/2020 8:30 AM EDT [place] [phone] Emerson Chand MD [facility] [place] [address] INJECTION, FACET JOINT,W/FLUORO, CERVICAL, SINGLE (WRVU 1.82) [...] Sign Reading Time Taken Comments Blood Pressure 143/93 11/18/2020 8:30 AM EDT Pulse 71 11/18/2020 7:32 AM EDT Temperature - - Respiratory Rate 18 11/18/2020 7:32 AM EDT Oxygen Saturation 99% 11/18/2020 8:30 AM EDT Inhaled Oxygen Concentration - - Weight 87.1 kg (192 lb) 11/18/2020 7:32 AM EDT Height 177.8 cm (5' 10) 11/18/2020 7:32 AM EDT Body Mass Index 27.55 11/18/2020 7:32 AM EDT documented in this encounter Discharge Instructions * Discharge Instructions* Miah Whittaker - 11/18/2020 8:54 AM EDT Pain Management Center Discharge Instructions: You were seen today by Surgeon(s): Emerson Chand MD Shah, Sunali, MD The following was performed: Procedure(s) (LRB): [...] 4-6 hours after your procedure. {CHECK BOX SELECTION:24732} If you have diabetes, monitor your blood sugars frequently. If your blood sugar increases and is of concern, contact your Primary Care Provider. You received the following medications: Medications Given During Procedure Date/Time Order Dose Route Action {\field{\*\fldinst HYPERLINK ecmd:ord?[id number]}{\fldrslt \cf18 11/18/2020 0829}} dexamethasone (PF) (Decadron) (10 mg/mL) injection 10 mg Epidural Canceled Entry {\field{\*\fldinst HYPERLINK ecmd:ord?[id number]}{\fldrslt \cf18 11/18/2020 0826}} iohexoL (Omnipaque) (240 mg/mL) injection solution 2 mL Other Given {\field{\*\fldinst HYPERLINK ecmd:ord?[id number]}{\fldrslt \cf18 11/18/2020 0826}} lidocaine (pf) (Xylocaine) (20 mg/mL) 2% injection 2 mL Other Given During regular business hours, [...] local emergency department. Miah Whittaker Special instructions Pain Management Center Post -Procedure Pain Log Patient: Grayson Dodd JOSE [id number] It is important for you to keep track of your pain after your procedure that took place 11/18/2020. This information will help your Provider to determine how to help reduce your pain. Today you had a procedure for pain in your neck. Your pain level before the procedure in this area was 5 /10. Your pain level immediately after your procedure was 1/10. Time Pain Score # Comments % pain relief 1 hour 9:45 am 2 hours 10:45 am 3 hours 11:45 am 4 hours 12:45 pm Please call the nurse in the Pain [...] Syringe USE TWICE MONTHLY 09/23/2020 flu vac [id number] 36mos up,PF, (Afluria Qd ,3yr up,,PF,) 60 [...] as of this encounter H&P Notes * Lm Lockhart MD - 11/18/2020 7:55 AM EDT Patient Name: Grayson Dodd III Patient Age: 60 y.o. Birthdate: 1960 Admit date: 11/18/2020 Attending Physician: Emerson Chand MD PREPROCEDURE HISTORY AND PHYSICAL Date of Visit: November 18, 2020 Chief Complaint: Left neck pain HPI: Subjective Grayson Dodd III is a 60 y.o. male who presents today for diagnostic cervical medial branch block left C3, C4, C5, C6 referred by Dr Lanier (spine). S/p right cervical RFA 07/26/[address] Chand with improvement in right sided headache x 80% The history is obtained from the patient, and I have reviewed medical records provided by the referring physician and located in the electronic medical record to fill in gaps in the patient's recollection of events, treatments and outcomes. LOCATION: Left cervical spine PAIN LEVEL Facet load 5 PAST MEDICAL HISTORY: Past Medical History: Diagnosis [...] to Encounter Medication Sig Dispense Refill ??? azithromycin (Zithromax) 250 mg Tablet 500 mg as needed. ??? flu vac [id number] 36mos up,PF, (Afluria Qd ,3yr up,,PF,) 60 mcg (15 mcg x 4)/0.5 mL Syringe Afluria Qd (36 mos up)(PF)60 mcg (15 mcg x4)/0.5 mL IM syringe ADM 0.5ML IM UTD ??? acetaminophen (Tylenol) 500 mg Tablet 500 mg as needed. ??? Afluria Qd ,3yr up,,PF, 60 mcg (15 [...] as described above. PHYSICAL EXAM: BP (!) 142/101 (Patient Position: Sitting) Pulse 71 Resp 18 Ht 177.8 cm (5' 10) Wt 87.1 kg(192 lb) SpO2 99% BMI 27.55 kg/m?? SBP 158/95 Physical Exam Constitutional: Pt oriented to person, place, and time. Appears well-developed and well-nourished. No distress. HENT: Head: Normocephalic and atraumatic. Pulmonary/Chest: Effort normal. Neurological: Alert and oriented to person, place, and time. No cranial nerve deficit. Skin: Skin is warm and dry. No rash noted. Not diaphoretic. Psychiatric: Normal mood and affect. MSK: (+) cervical facet loading left RADIOLOGIC DATA: Relevant imaging reviewed LABS/DX RESULTS: [...] in the last 7068 hours. ASSESSMENT: Assessment 1. Spondylosis of cervical region without myelopathy or radiculopathy PLAN: Proceed with planned cervical medial branch block, left C3, C4, C5, C6. Addressed all questions andconcerns. Risks and benefits discussed with patient. No contraindications to the procedure at this time, will proceed. Lm Lockhart MD Pain Management Fellow [facility] [address] [address] [email or web address] documented in this encounter Miscellaneous Notes * Op Note - Emerson Chand MD - 11/18/2020 8:26 AM EDT Pain Management Operative Note Patient Name: Grayson Dodd III : [id number] MR#: [id number] Case Date: 11/18/2020 Surgeon: Surgeon(s) and Role: * Emerson Chand MD - Primary * Lm Lockhart MD - Fellow Present on Admission: ??? Spondylosis of cervical region without myelopathy or radiculopathy Postoperative diagnosis: Same Procedure(s) (LRB): INJECTION, FACET JOINT,W/FLUORO, CERVICAL, SINGLE (WRVU 1.82) (Left) INJECTION, FACET JOINT,W/FLUORO, CERVICAL, SECOND (WRVU 1.16) (Left) INJECTION, FACET JOINT,W/FLUORO, CERVICAL, THIRD/ADDTNL (WRVU 1.16) (Left) PROCEDURE NOTE CERVICAL MEDIAL BRANCH BLOCKS- LEFT C3, C4, C5, and C6 Date of Service: 11/18/2020 Patient: Grayson Dodd III Provider: MD Lm Polk MD Grayson Dodd III has been referred [...] was then draped. Next, a 25 gauge 3.5 spinal needle [...] continuous fluoroscopy. Next, 0.5 ml of preservative-free 2% Lidocaine was injected at each level. Mr. Moffetts vital signs were stable throughout the procedure and were as recorded in the docflowsheet by the nursing staff. Provacative testing using the Modified Yip's facet loading test Left side Directly before the block VAS (0-10) = 5 5 minutes after the block VAS (0-10) = 1 Percentage relief obtained with this diagnostic block 80% Follow up plans and appointments were discussed [...] scores. The procedure was performed by Dr. Lockhart under my supervision. I was the attending physician supervising the fellow in the above care and I was present with the fellow for the entire procedure. Emerson Chand MD Attending Physician [facility] [place] [address] / CC: Didier Romero MD [address] [place] [address] [place] [address] documented in this encounter Plan of Treatment Upcoming Encounters Date Type Department Care Team (Late st Contact Info) Description 01/03/2024 8:15 AM EDT Office Visit Dermatology at [place] [address] [place] [facility] [phone] Jake Galvez MD [address] [facility] [place] [address] documented as of this encounter Visit Diagnoses Not on filedocumented in this encounter Administered Medications Inactive Administered Medications - up to 3 most recent administrations Medication Order MAR Action Action Date Dose Rate Site iohexoL (Omnipaque) (240 mg/mL) injection solution ONCE PRN, Starting on Ginger 11/18/20 at 0826, Until Ginger 11/18/20 at 1100, Intra-Operative (Intra-Procedure), Routine Given 11/18/2020 8:26 AM EDT 2 mLs lidocaine (pf) (Xylocaine) (20 mg/mL) 2% injection ONCE PRN, Starting on Ginger 11/18/20 at 0826, Until Ginger 11/18/20 at 1100, Intra-Operative (Intra-Procedure), Routine Given 11/18/2020 8:26 AM EDT 2 mLs documented in this encounter Active and Recently Administered Medications Times are shown in EDT. PRN Medication Order 11/16/2020 11/17/2020 11/18/2020 iohexoL (Omnipaque) (240 mg/mL) injection solution (CANCELED) ONCE PRN, Starting on Ginger 11/18/20 at 0826, Until Ginger 11/18/20 at 1100, Intra-Operative (Intra-Procedure), Routine 0826 (Given - Provid er: Lm Lockhart MD - Comment: cervical block) lidocaine (pf) (Xylocaine) (20 mg/mL) 2% injection (CANCELED) ONCE PRN, Starting on Ginger 11/18/20 at 0826, Until Ginger 11/18/20 at 1100, Intra-Operative (Intra-Procedure), Routine 08 (Given - Provid er: Lm Lockhart MD - Comment: cervical block) documented in this encounter Care Teams Lithoduplicator Operator Relationship Specialty Start Date End Date Didier Romero MD [facility] [place] [address] PCP - General Family Medicine 01/11/17 documented as of this encounter
--- OUTSIDE RECORDS SUMMARY | 2023-12-25 18:48 | XMS_ITS | Encounter Summary ---
Author Organization [facility] [place] [address] Care Team Providers Care Account Underwriter Name Role Phone Didier Romero MD Primary [...] Expiration Date Visits Re quested Visits Authorized [id number] 1 1 Encounter Details Date Type Department Care Team (Late st Contact Info) Description 12/02/2020 8:30 AM EDT Ancillary [place] [phone] Emerson Chand MD [facility] [place] [address] Pain Social History Tobacco Use Types Packs/Day [...] 8:15 AM EDT Office Visit Dermatology at [place] [address] [place] [address] Jake Galvez MD [address] [place] [address] documented as of this encounter Procedures Procedure Name Priority Date/Time Associated Diagnosis Comments FILM LIBRARY STORAGE ONLY PAIN CLINIC C ARM Routine 12/02/2020 3:49 PM EDT Pain documented in this encounter Results * Film Library- Storage Only pain Clinic C-Arm (12/02/2020 3:49 PM EDT) Narrative [facility] - 12/02/2020 3:49 PM EDT See PACS for result report. Emerson Chand MD IMG FILM LIBRARY ORD ERABLES Performing Organization Address City/State/[facility] Co de Phone Number [place], [place] documented in this encounter Visit Diagnoses Diagnosis Pain Generalized pain documented in this encounter Care Teams Account Underwriter Relationship Specialty Start Date End Date Didier Romero MD [address] [place] [address] PCP - General Family Medicine 01/11/17 documented as of this encounter
--- OUTSIDE RECORDS SUMMARY | 2023-12-25 18:48 | XMS_ITS | Encounter Summary ---
[place] [address] Care Team Providers Care Brewing Technician Name Role Phone Didier Romero MD Primary Care Provider + Encounter Details Date Type Department Care Team (Late st Contact Info) Description 12/15/2020 Telephone [facility] [place] [phone] Denia Egan LNA Social History Tobacco Use [...] * Telephone Encounter - Denia Egan - 12/15/2020 8:46 AM EDT Contact made with patient or indirect sales representative as identified in contacts 1. 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 2. Has pt started any new medications or supplements in the past two weeks? No 3. Have any of the following occurred within the two weeks before the procedure date? a. Patient is having a Covid vaccine or other vaccine No b. Patient has been exposed to anybody with a contagious illness such as Covid, flu, chicken pox No c. Patient has any symptoms of illness such as: cough, sore throat, fever, N/V/D No d. Patient is taking antibiotics to treat an infection No e. Patient has any skin rashes, breakdown, blisters or open wounds No f. Patient has had any hospitalizations, ED visits, surgery, other procedure, dental procedure No g. Patient has taken oral steroids or had a steroid injection No 4. Has the patient's pain resolved or significantly improved such as a rating of 3/10 or less? No 5. Was patient instructed to stop any medications? No if yes: patient said Dr. Chand told him he didnot have to stop his aspirin for this procedure and that he had 2 RFAs in the past and he never stopped his aspirin. a. Name of medication(s): b. Confirm date [...] products, no milk including soy, oat, almond. Patient does not want the IV for this procedure as he is having a clinic visit after the procedure and he says he didn't have one last time. 9. Does patient have a pacemaker? No [...] AM EDT Office Visit Dermatology at [address] [phone] Jkae Galvez MD [address] [facility] [place] [address] documented as of this encounter Visit Diagnoses Not on filedocumented in this encounter Care Teams Brewing Technician Relationship Specialty Start Date End Date Didier Romero MD [address] [place] [address] PCP - General Family Medicine 01/11/17 documented as of this encounter
--- OUTSIDE RECORDS SUMMARY | 2023-12-25 18:48 | XMS_ITS | Encounter Summary ---
[place] [address] Care Team Providers Care Deicer Element Winder Machine Name Role Phone Didier Romero MD Primary Care Provider + Encounter Details Date Type Department Care Team (Late st Contact Info) Description 12/01/2020 Telephone [place] [phone] Courtney Clifton RN Social History Tobacco Use [...] encounter Miscellaneous Notes * Telephone Encounter - Courtney Clifton RN - 12/01/2020 4:15 PM EDT Grayson Dodd III :1960 Contact made with patient: I spoke to Mr. Dodd at 4:15 PM regarding upcoming Left cervical medial branch block scheduled on 12/02/2020 (date) scheduled at 0830 (time) with Dr. Marco A Chand MD. Medication and Allergy reconciliation: 1. Changes were made in the telephone encounter per patient; marked as reviewed, and closed. 3. Have you had any steroid injections anywhere in your body within the last two weeks? no Arrival time: The patient was instructed to arrive at 0800 (30 minutes prior to procedure start time - 60 minutesprior for RF patients with a pacemaker). Antibiotics/Skin assessment/Illness symptoms/Pain level assessment : 1. Are you currently taking an antibiotic for any active infections No 2. Do you currently have any rashes, blisters, skin breakdown or open wounds. No 3. To your knowledge, have you had any exposure to COVID-19 No 4. Are you still experiencing pain? Yes 5. Have you received, or are you scheduled to received a COVID vaccination Yes september Pain and Anti-anxiety Medications: 1. Nerve Block [...] any diagnosed bleeding disorders: No Anticoagulants: No NSAIDs: Does the patient take Aspirin/ASA? Yes Does the patient take an NSAID? No Diabetic instructions: Patient was advised to inform their PCP regarding safe fasting and the NPO requirements for their upcoming procedure and given the [facility] Nurse Triage Line . Implant: Patient has pacemaker/defibrillator: No Courtney Clifton RN documented in this encounter Plan of Treatment Upcoming Encounters Date Type Department Care Team (Late st Contact Info) Description 01/03/2024 8:15 AM EDT Office Visit Dermatology at [employer] [address] [place] [address] Jake Galvez MD [address] [place] [address] documented as of this encounter Visit Diagnoses Not on filedocumented in this encounter Care Teams Deicer Element Winder Machine Relationship Specialty Start Date End Date Didier Romero MD [facility] [place] [address] PCP - General Family Medicine 01/11/17 documented as of this encounter
--- OUTSIDE RECORDS SUMMARY | 2023-12-25 18:48 | XMS_ITS | Encounter Summary ---
Author Organization [facility] [place] [address] Care Team Providers Care Human Resources Designate Name Role Phone Didier Romero MD Primary Care Provider + Reason for Visit * Reason Comments Follow-up F/U S/P RFA 07/26/20 Encounter Details Date Type Department Care Team (Late st Contact Info) Description 09/06/2020 12:30 PM EDT Office Visit [facility] [place] [address] Emerson Chand MD [facility] [place] [address] Cervical spondylosis; Cervicalgia; Myofascial pain Social History Tobacco Use Types Packs/Day Years [...] Sign Reading Time Taken Comments Blood Pressure 152/99 09/06/2020 12:27 PM EDT Pulse 75 09/06/2020 12:27 PM EDT Temperature 36.9 ??C (98.4 ??F) 09/06/2020 12:27 PM E DT Respiratory Rate - - Oxygen Saturation 100% 09/06/2020 12:27 PM EDT Inhaled Oxygen Concentration - - Weight 88 kg (194 lb) 09/06/2020 12:27 PM EDT Height 177.8 cm (5' 10) 09/06/2020 12:27 PM EDT Body Mass Index 27.84 09/06/2020 12:27 PM EDT documented in this encounter Progress Notes * Emerson Chand MD - 09/06/2020 12:30 PM EDT [facility] - Follow Up Note Date of visit: 09/06/20 : 1960 CC: Chief Complaint Patient presents with ??? Follow-up F/U S/P RFA 07/26/20 HPI: Grayson Dodd III is a 60 y.o. year old male who presents to the pain clinic today for follow up in regards to his right sided neck pain, cervical spondylosis that was treated with C3 through C6 medial branch RFA on 07/26/2020. He reports 70-80% relief of his headache is improved. He still has right sided neck pain that radiates to the right shoulder/ collar bone area. He denies any radiation to the RUE. On the left side, he gets a pain that goes to the left elbow and has numbness and tingling to the left hand since his symptoms started in January. He had sustained a work-related injury on 01/07/2020. He denies any weakness, or any bowel/ bladder incontinence. He also has lower back pain. He is s/p a L4-S1 fusion in , and was doing well, until he was in awork related injury. He is also following up with Dr. Lanier today. Currently the patient's pain is described as involving the right lower neck to shoulder area. Today, the patient rates the pain a 3-4/10 and ranges from a 3 to 7 ; describes the pain as sharp and dynamic- comes with movement. His lower back is a 3/10, but with activity gets to 5-6/10 with associated left> right sided numbness and tingling with occasional pain. PMH/PSH: Patient Active Problem List Diagnosis Code [...] Viral warts B07.9 ??? Eczema L30.9 ??? Cervical spondylosis M47.812 Past Medical History: Diagnosis Date ??? Gout [...] Week: ??? Minutes of Exercise per Session: Stress: ??? Feeling of Stress : Social Connections: ??? Frequency of Communication with Friends and Family: ??? Frequency of Social Gatherings with Friends and Family: ??? Attends Sikhism Services: ??? Active Member of Clubs or Organizations: ??? Attends Club or Organization Meetings: ??? Marital Status: Intimate Partner Violence: ??? Fear of Current or Ex-Partner: ??? Emotionally Abused: ??? Physically Abused: ??? Sexually Abused: MEDICATIONS: Current Outpatient Medications: ??? acetaminophen (Tylenol) 500 mg Tablet, 500 mg as needed., Disp: , Rfl: ??? BD SafetyGlide Needle 25 x 5/8 Needle, EVERY 2 WEEKS WITH TESTOSTERONE, Disp: , Rfl: ??? BD SafetyGlide Needle 25 gauge x 1 Needle, , Disp: , Rfl: ??? BD Luer-Kg Syringe 3 mL 25 gauge x 1 Syringe, USE MONTHLY WITH B12, Disp: , Rfl: ??? irbesartan (AVAPRO) 75 mg Tablet, daily., Disp: , Rfl: ??? cyanocobalamin, vitamin B-12, 1,000 mcg/mL Solution, , Disp: , Rfl: 0 ??? FLOVENT HFA [...] by mouth daily., Disp: , Rfl: ??? testosterone (ANDROGEL) 1 %(50 mg/5 gram) GlPk, 50 MG/5 GRAM, TD, Once daily, Disp: , Rfl: ??? azithromycin (Zithromax) 250 mg Tablet, 500 mg as needed., Disp: , Rfl: ??? flu vac [id number] 36mos up,PF, (Afluria Qd 2020-21,3yr up,,PF,) 60 mcg (15 mcg x 4)/0.5 mL Syringe, Afluria Qd (36 mos up)(PF)60 mcg (15 mcg x4)/0.5 mL IM syringe ADM 0.5ML IM UTD, Disp: , Rfl: ??? Afluria Qd ,3yr up,,PF, 60 mcg (15 mcg x 4)/0.5 mL Syringe, inject 0.5 milliliters intramuscularly, Disp: , Rfl: ALLERGIES: Allergies Allergen Reactions ??? Dilaudid [Hydromorphone (Pf)] Other (See Comments) Lowers blood pressure ??? Chlorhexidine Gluconate Other reaction(s): Rash & Burning ??? Oxycodone-Acetaminophen Other reaction(s): Hallucinations ??? Pollen Extracts ??? Telfa [Adhesive Bandage] Rash ROS: Review of Systems Denies fevers, chills, weight changes. Positive for above mentioned musculoskeletal and neurological findings on 14 point system review. PHYSICAL EXAM: BP (!) 152/99 Pulse 75 Temp 36.9 ??C (98.4 ??F) Ht 177.8 cm (5' 10) Wt 88 kg (194 lb) SpO2 100% BMI 27.84 kg/m?? Physical Exam Alert and oriented. VSS Musculoskeletal exam: Strength intact. SIJ provocation (-) Tenderness to palpation at B cervical paraspinous muscles Facet loading (+) R>L lumbar R Spurling (+) Neurological exam: On neurological exam, 5/5 strength at bilateral upper and lower extremities SLR (-) DTR's intact at B upper and lower extremities TESTS / IMAGING: From Dr. Lanier's note dated 05/18/2020. Cervical MRI, 03/01/2020: There is straightening of the normal cervical lordosis. Mild disc osteophyte complexes are present at C2-C3 and C5-C6. Mild to moderate disc-osteophyte complexes noted at C3-C4. There is a prominent disc osteophyte complex that is mainly anterior at C6-C7 and is associated with disc space narrowingand degenerative endplate change at that level. Intervertebral foraminal narrowing is noted bilaterally at C6-C7. No oblique cuts are available. There is no evidence of central stenosis. Electrodiagnostic testing 03/09/2020. The study showed no evidence of acute or chronic left cervical radiculopathy. The patient demonstrated mild prolongation of bilateral median and ulnar F-wave latencies and prolonged peak sensory latencies and decreased sensory velocities in bilateral median and ulnar distributions. DIAGNOSIS: 1. Cervical spondylosis 2. Cervicalgia 3. Myofascial pain ASSESSMENT: 60 year old M with a h/o work related injury with sustained neck pain, cervical spondylosis. Also, he has a prior h/o lower back surgery, with ongoing pain, which was not fully evaluated in today's visit. He has some improvement of his R sided neck pain and headaches. PLAN: Injection: No side effects from MBB RFA on the right cervical medial branch blocks. He reports someimprovement. Will defer to Dr. Lanier for next steps in his care. Medication: No new meds Imaging: Consider lumbar imaging, and separate referral with evaluation for lower back pain Physical therapy/home exercise plan: None after this injury. May benefit from revisiting with physical therapy and develop a treatment plan. Follow up: Will discuss with Dr. Yolande Chand MD [facility] [place] [address] / CC: Anisha Xie, PRAFUL [address] [place] [address] [address] [place] [address] documented in this encounter Plan of Treatment Upcoming Encounters Date Type Department Care Team (Late st Contact Info) Description 01/03/2024 8:15 AM EDT Office Visit Dermatology at [address] [place] [address] Jake Galvez MD [address] [place] [address] documented as of this encounter Visit Diagnoses Diagnosis Cervical spondylosis Cervical spondylosis without myelopathy Cervicalgia Myofascial pain Mylagia and myositis, unspecified documented in this encounter Care Teams Human Resources Designate Relationship Specialty Start Date End Date Didier Romero MD [facility] [place] [address] PCP - General Family Medicine 01/11/17 documented as of this encounter
--- OUTSIDE RECORDS SUMMARY | 2023-12-25 18:48 | XMS_ITS | Encounter Summary ---
[place] [address] Care Team Providers Care Associate Financial Planner Name Role Phone Didier Romero MD Primary Care Provider + Reason for Visit * Auth/Cert Specialty Diagnoses / Procedures Referred By Contac t Referred To Contact Diagnoses Cervical spondylosis Cervical Spondylosis Procedures PRO DSTR PARAVERTEBRAL FCT JNT NRVES CERVICAL OR THORACIC SINGLE RADIOFREQUENCY ABLATION,SINGLE FACET JOINT,CERVICAL (WRVU 3.84) Referral ID Status Reason Start Date Expiration Date Visits Re quested Visits Authorized [id number] 1 1 Encounter Details Date Type Department Care Team (Latest Contact Info) Description 12/16/2020 7:01 AM EDT - 12/16/2020 9:01 AM EDT Hospital Encounter [place] [phone] Emerson Chand MD [facility] [place] [address] Discharge Disposition: Home Social History Tobacco Use [...] Sign Reading Time Taken Comments Blood Pressure 170/113 12/16/2020 8:50 AM EDT Pulse - - Temperature - - Respiratory Rate 20 12/16/2020 7:08 AM EDT Oxygen Saturation 99% 12/16/2020 8:50 AM EDT Inhaled Oxygen Concentration - - Weight 90.7 kg (200 lb) 12/16/2020 7:08 AM EDT Height 177.8 cm (5' 10) 12/16/2020 7:08 AM EDT Body Mass Index 28.7 12/16/2020 7:08 AM EDT documented in this encounter Discharge Instructions * Discharge Instructions* Nagi Ann H - 12/16/2020 8:51 AM EDT Pain Management [...] 4-6 hours after your procedure. {CHECK BOX SELECTION:04831} If you have diabetes, monitor your blood sugars frequently. If your blood sugar increases and is of concern, contact your Primary Care Provider. You received the following medications: Medications Given During Procedure Date/Time Order Dose Route Action {\field{\*\fldinst HYPERLINK ecmd:ord?[id number]}{\fldrslt \cf18 12/16/2020 0821}} dexamethasone (PF) (Decadron) (10 mg/mL) injection 10 mg Intra-articular Given {\field{\*\fldinst HYPERLINK ecmd:ord?[id number]}{\fldrslt \cf18 12/16/2020 0815}} lidocaine (pf) (Xylocaine) (20 [...] the muscle every 14 days. flu vac [id number] 36mos up,PF, (Afluria Qd 2019-,3yr up,,PF,) 60 [...] 500 mg as needed. ??? flu vac [id number] 36mos up,PF, (Afluria Qd ,3yr up,,PF,) 60 [...] [facility] [place] [address] / documented in this encounter Miscellaneous Notes * Op Note - Emerson Chand MD - 12/16/2020 8:14 AM EDT Pain Management Operative Note Patient Name: Grayson Dodd III : [id number] MR#: [id number] Case Date: 12/16/2020 Surgeon: Surgeon(s) and Role: [...] component of Grayson Dodd III???s usual pain. Each placement was stimulated [...] [facility] [address] [address] / CC: Didier Romero MD [address] [place] [address] [place] [address] documented in this encounter Plan of Treatment Upcoming Encounters Date Type Department Care Team (Late st Contact Info) Description 01/03/2024 8:15 AM EDT Office Visit Dermatology at [address] [address] Jake Galvez MD [address] [place] [address] documented as of this encounter Visit Diagnoses [...] intrarticular) documented in this encounter Care Teams Associate Financial Planner Relationship Specialty Start Date End Date Didier Romero MD [facility] [place] [address] PCP - General Family Medicine 01/11/17 documented as of this encounter
--- OUTSIDE RECORDS SUMMARY | 2023-12-25 18:48 | XMS_ITS | Encounter Summary ---
[place] [address] Care Team Providers Care Levee Superintendent Name Role Phone Didier Romero MD Primary Care Provider + Reason for Visit * Reason Comments Skin Check Encounter Details Date Type Department Care Team (Late st Contact Info) Description 12/21/2020 4:15 PM EDT Office Visit Dermatology at [address] [address] Jake Galvez MD [address] [place] [address] DERMATOLOGY [place], [place] [id number] [place] (actinic keratosis); History of SCC (squamous [...] Progress Notes * Jake Galvez MD - 12/21/2020 4:15 PM EDT Problem: 1. 6-month skin checkup 2. 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 Status post 5-FU applications to bilateral forearms 4. ??History of malignant melanoma, 1 mm Breslow depth, July 2011 diagnosed in [place], right inferior axillary vault area, with a negative sentinel lymph node biopsy 5. 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 ??History of lichen simplex left medial calf and right arm controled??with clobetasol cream prn Bruno follows up for a 6-month check. He has been doing well. He is here today with his Arlen. When I last saw him in April I had biopsied a lesion on the left lateral neck which fortunately proved to be squamous cell carcinoma in situ. Today he is here for me to check up on that and do a general skin checkup. Physical examination reveals a pleasant 60-year-old gentleman who has actinic present dorsal hands on the left lateral neck and on his forearms. A total of 6 are noted. Posterior there is no evidenceof any malignant lesions on careful examination of the head and the neck the chest the back the hands the arms the forearms the thighs and the calves and the buttocks. Assessment and plan: Actinic keratoses 1. LN2 x2 per each of 6 sites 2. Recommend I see the patient again at the 6-month repeat check History of melanoma and of nonmelanoma cutaneous malignancies 1. No evidence of recurrence 2. Patient reassured 3. Return to clinic in 6 months CC: Didier Romero MD documented in this encounter Plan of Treatment Upcoming Encounters Date Type Department Care Team (Late st Contact Info) Description 01/03/2024 8:15 AM EDT Office Visit Dermatology at [place] [address] [place] [address] Jake Galvez MD [address] [facility] [place] [address] documented as of this encounter Visit Diagnoses Diagnosis [place] (actinic keratosis) Actinic keratosis History of SCC (squamous cell carcinoma) of skin Personal history of other malignant neoplasm of skin History of malignant melanoma Personal history of malignant melanoma of skin Eczema, unspecified type documented in this encounter Care Teams Levee Superintendent Relationship Specialty Start Date End Date Didier Romero MD [address] [place] [address] PCP - General Family Medicine 01/11/17 documented as of this encounter
--- OUTSIDE RECORDS SUMMARY | 2023-12-25 18:48 | XMS_ITS | Encounter Summary ---
Author Organization [facility] [place] [address] Care Team Providers Care Engineering Professor Name Role Phone Didier Romero MD Primary Care Provider + Encounter Details Date Type Department Care Team (Late st Contact Info) Description 01/20/2021 Telephone [facility] [place] [address] Gillian Courtney Social History Tobacco Use Types Packs/Day Years [...] encounter Miscellaneous Notes * Telephone Encounter - Gillian Courtney - 01/20/2021 5:43 PM EDT LVM to schedule 2-3 wk f/u with Dr. Lanier after Caudal NABIL with Dr. Chand on 02/03/21 Note: F/U s/p Caudal NABIL 02/03/21 documented in this encounter Plan of Treatment Upcoming Encounters Date Type Department Care Team (Late st Contact Info) Description 01/03/2024 8:15 AM EDT Office Visit Dermatology at [address] [address] Jake Galvez MD [address] [facility] [place] [address] documented as of this encounter Visit Diagnoses Not on filedocumented in this encounter Care Teams Engineering Professor Relationship Specialty Start Date End Date Didier Romero MD [facility] [place] [address] PCP - General Family Medicine 01/11/17 documented as of this encounter
--- OUTSIDE RECORDS SUMMARY | 2023-12-25 18:48 | XMS_ITS | Encounter Summary ---
Author Organization [facility] [address] Care Team Providers Care Control Chemist Name Role Phone Didier Romero MD Primary [...] Expiration Date Visits Re quested Visits Authorized [id number] 1 1 Encounter Details Date Type Department Care Team (Late st Contact Info) Description 11/18/2020 8:00 AM EDT Ancillary Procedure [place] [phone] Emerson Chand MD [facility] [place] [address] Pain Social History Tobacco Use Types Packs/Day [...] 8:15 AM EDT Office Visit Dermatology at [place] [address] [place] [address] Jake Galvez MD [address] [place] [place] [address] documented as of this encounter Procedures Procedure Name Priority Date/Time Associated Diagnosis Comments FILM LIBRARY STORAGE ONLY PAIN CLINIC C ARM Routine 11/18/2020 3:58 PM EDT Pain documented in this encounter Results * Film Library- Storage Only pain Clinic C-Arm (11/18/2020 3:58 PM EDT) Narrative [facility] - 11/18/2020 3:58 PM EDT See PACS for result report. Emerson Chand MD IMG FILM LIBRARY ORD ERABLES Performing Organization Address City/State/[facility] Co de Phone Number [place], [place] documented in this encounter Visit Diagnoses Diagnosis Pain Generalized pain documented in this encounter Care Teams Control Chemist Relationship Specialty Start Date End Date Didier Romero MD [address] [place] [address] PCP - General Family Medicine 01/11/17 documented as of this encounter
--- OUTSIDE RECORDS SUMMARY | 2023-12-25 18:48 | XMS_ITS | Encounter Summary ---
Author Organization [facility] [place] [address] Care Team Providers Care Vamp Cut Out Worker Name Role Phone Didier Romero MD [...] Expiration Date Visits Re quested Visits Authorized [id number] 1 1 Encounter Details Date Type Department Care Team (Latest Contact Info) Description 11/18/2020 7:26 AM EDT - 11/18/2020 8:59 AM EDT Hospital [place] [phone] Emerson Chand MD [facility] [place] [address] Spondylosis of cervical region without myelopathy or radiculopathy Discharge Disposition: Home Social History Tobacco Use [...] Sign Reading Time Taken Comments Blood Pressure 130/87 11/18/2020 8:40 AM EDT Pulse 71 11/18/2020 7:32 AM EDT Temperature - - Respiratory Rate 18 11/18/2020 7:32 AM EDT Oxygen Saturation 93% 11/18/2020 8:40 AM EDT Inhaled Oxygen Concentration - [...] 4-6 hours after your procedure. {CHECK BOX SELECTION:43976} If you have diabetes, monitor your blood sugars frequently. If your blood sugar increases and is of concern, contact your Primary Care Provider. You received the following medications: Medications Given During Procedure Date/Time Order Dose Route Action {\field{\*\fldinst HYPERLINK ecmd:ord?[id number]}{\fldrslt \cf18 11/18/2020 0829}} dexamethasone (PF) (Decadron) (10 mg/mL) injection 10 mg Epidural Canceled Entry {\field{\*\fldinst HYPERLINK ecmd:ord?[id number]}{\fldrslt \cf18 11/18/2020 0826}} iohexoL (Omnipaque) (240 mg/mL) injection solution 2 mL Other Given {\field{\*\fldinst HYPERLINK ecmd:ord?ua=[id number]}{\fldrslt \cf18 11/18/2020 0826}} lidocaine (pf) (Xylocaine) (20 [...] -Procedure Pain Log Patient: Grayson Dodd III [id number] It is important for you to keep [...] Syringe USE TWICE MONTHLY 09/23/2020 flu vac [id number] 36mos up,PF, (Afluria Qd ,3yr up,,PF,) 60 [...] 500 mg as needed. ??? flu vac [id number] 36mos up,PF, (Afluria Qd ,3yr up,,PF,) 60 [...] Fellow [facility] [address] [address] [email or web address] documented in this encounter Miscellaneous Notes * Op Note - Emerson Chand MD - 11/18/2020 8:26 AM EDT Pain Management Operative Note Patient Name: Grayson Dodd III : [id number] MR#: [id number] Case Date: 11/18/2020 Surgeon: Surgeon(s) and Role: [...] entire procedure. Emerson Chand MD Attending Physician [place] [address] / CC: Didier Romero MD [address] [place] [address] [place] [address] documented in this encounter Plan of Treatment Upcoming Encounters Date Type Department Care Team (Late st Contact Info) Description 01/03/2024 8:15 AM EDT Office Visit Dermatology at [address] [facility] [place] [address] Jake Galvez MD [address] [facility] [place] [address] documented as of this encounter Visit Diagnoses Diagnosis Spondylosis of cervical region without myelopathy or radiculopathy- Primary Cervical spondylosis without myelopathy Spondylosis of cervical region without myelopathy or radiculopathy Cervical spondylosis without myelopathy documented in this encounter Active and Recently [...] block) documented in this encounter Care Teams Vamp Cut Out Worker Relationship Specialty Start Date End Date Didier Romero MD [address] [place] [address] PCP - General Family Medicine 01/11/17 documented as of this encounter
--- OUTSIDE RECORDS SUMMARY | 2023-12-25 18:48 | XMS_ITS | Encounter Summary ---
[place] [address] Care Team Providers Care Medical Coding Specialist Name Role Phone Didier Romero MD Primary Care Provider + Encounter Details Date Type Department Care Team (Late st Contact Info) Description 06/15/2020 Telephone [facility] [place] [phone] Kayley Mckeon, RN Social History Tobacco Use [...] Telephone Encounter - Kayley Mckeon RN - 06/15/2020 3:53 PM EST [facility] MBB/RF Risk Stratification Post-procedure phone call from patient to report her response to the cervical medial branch block procedure performed on 06/04/20 in the Pain Management Center by Marco A Chand MD. This is patient's: first medial branch block. Patient reports that after the procedure she experienced: _X_ Patient reported post-block numeric pain scale: 2 /10 (average pain since procedure) _X_ Post-procedure pain has been reduced by 80%. (> 80% Medicare/MVP/Medicaid) _X_ If relief > 80% with ability to perform painful maneuvers; schedule 2nd MBB: yes _X_ Post-procedure pain has been reduced by 80%. (> 50% all other insurers) __ Pain relief: moderate If pain is reduced, it lasted: Yes less than 4 hours Changes in functional status post procedure: Turn my head to drive the car, able to lay head down without pain Pertinent recent trauma or surgery? no If yes; consult w referring provider If No, proceed Patient taking any NSAIDs? no Patient taking Aspirin or Aggrenox (dipyridamole) yes If yes, dose: 81mg Is this self prescribed or ordered by a provider: Dr. Romero If ordered; Name of prescribing provider: dr. Romero If taking ASA; please ask the following questions to assist in determining ASA hold instructions - h/o Myocardial Infarction (VA): no - h/o Coronary Artery Disease (CAD): [...] the requested procedure is stratified as a: High Risk Procedure Based on the information provided above and after discussion with the patient, the following actions will be taken: _X_ Patient meets criteria to proceed to second Right at C3, C4, C5 and C6 cervical medial branch block. . Disposition: Patient transferred to porcelain enamel repairer to arrange requested injection. Patient's questions regarding [...] 8:15 AM EDT Office Visit Dermatology at [place] [address] [facility] [place] [address] Jake Galvez MD [address] [facility] [place] [address] documented as of this encounter Visit Diagnoses Not on filedocumented in this encounter Care Teams Medical Coding Specialist Relationship Specialty Start Date End Date Didier Romero MD [address] [place] [address] PCP - General Family Medicine 01/11/17 documented as of this encounter
--- OUTSIDE RECORDS SUMMARY | 2023-12-25 18:48 | XMS_ITS | Encounter Summary ---
[place] [address] Care Team Providers Care Kennel Keeper Name Role Phone Didier Romero MD Primary Care Provider + Reason for Referral * Consultation (Routine) - Closed Specialty Diagnoses / Procedures Referred By Contac t Referred To Contact Pain and Spine Center Diagnoses Cervicalgia Cervical spondylosis Procedure - Diagnostic medial branch blocks L C3, C4, C5, C6 *High risk. Patient on low dose ASA per TPL Geoff Lanier MD [facility] [place] [address] [facility] [place] [address] Referral ID Status Reason Start Date Expiration Date Visits Requested Visits Authorized [id number] Closed Pain Interventional Procedure 09/15/2020 09/15/2021 3 3 Encounter Details Date Type Department Care Team (Late st Contact Info) Description 09/15/2020 Orders Only [facility] [place] [address] Geoff Lanier MD [facility] [address] Cervicalgia; Cervical spondylosis Social History Tobacco Use Types Packs/Day [...] 8:15 AM EDT Office Visit Dermatology at [place] [address] [facility] [place] [address] Jake Galvez MD [address] [facility] [place] [address] Scheduled Referrals Name Type Priority Associated Diagnoses Orde r Schedule Referral to Pain and Spine Center (Internal only) Outpatient Referral Routine Cervicalgia Cervical spondylosis Ordered: 09/15/2020 documented as of this encounter Visit Diagnoses Diagnosis Cervicalgia Cervical spondylosis Cervical spondylosis without myelopathy documented in this encounter Care Teams Kennel Keeper Relationship Specialty Start Date End Date Didier Romero MD [address] [place] [address] PCP - General Family Medicine 01/11/17 documented as of this encounter
--- OUTSIDE RECORDS SUMMARY | 2023-12-25 18:48 | XMS_ITS | Encounter Summary ---
[place] [address] Care Team Providers Care Sulfuric Acid Plant Supervisor Name Role Phone Didier Romero MD Primary Care Provider + Encounter Details Date Type Department Care Team (Late st Contact Info) Description 11/17/2020 Telephone [facility] [place] [phone] Denia Egan LNA Social History Tobacco Use [...] * Telephone Encounter - Denia Egan - 11/17/2020 2:56 PM EDT Grayson Dodd III :1960 Contact made with patient: I spoke to Mr. Dodd at 2:56 PM regarding upcoming Left cervical medial branch block scheduled on 11/18/20 (date) scheduled at 0800 (time) with Dr. Marco A Chand MD. Medication and Allergy reconciliation: 1. Changes were made in the telephone encounter per patient; marked as reviewed, and closed. 3. Have you had any steroid injections anywhere in your body within the last two weeks? no Arrival time: The patient was instructed to arrive at 0730 (30 minutes prior to procedure start time - 60 minutesprior for RF patients with a pacemaker). Antibiotics/Skin assessment/Illness symptoms/Pain level assessment : 1. Are you currently taking an antibiotic for any active infections No 2. Do you currently have any rashes, blisters, skin breakdown or open wounds. No 3. Are you still experiencing pain? Yes 4. Have you received, or are you scheduled to received a COVID vaccination Yes 2nd dose in September per pt Pain and Anti-anxiety Medications: 1. Nerve Block [...] NSAIDs: Does the patient take Aspirin/ASA? Yes The patient confirmed they discontinued taking Aspirin on 11/13/20 (date). Does the patient take an NSAID? No Diabetic instructions: Patient was advised to inform their PCP regarding safe fasting and the NPO requirements for their upcoming procedure and given the Pain Management Center Nurse Triage Line . Implant: Patient has pacemaker/defibrillator: No SEA Sykes documented in this encounter Plan of Treatment Upcoming Encounters Date Type Department Care Team (Late st Contact Info) Description 01/03/2024 8:15 AM EDT Office Visit Dermatology at [place] [address] [place] [address] Jake Galvez MD [address] [facility] [place] [address] documented as of this encounter Visit Diagnoses Not on filedocumented in this encounter Care Teams Sulfuric Acid Plant Supervisor Relationship Specialty Start Date End Date Didier Romero MD [address] [place] [address] PCP - General Family Medicine 01/11/17 documented as of this encounter
--- OUTSIDE RECORDS SUMMARY | 2023-12-25 18:48 | XMS_ITS | Encounter Summary ---
Author Organization [facility] Address [facility] [place] [address] Care Team Providers Care Reliability Engineer Name Role Phone Didier Romero MD Primary Care Provider + Reason for Visit * Reason Comments Follow-up Back Pain Encounter Details Date Type Department Care Team (Latest Contact Info) Description 01/13/2021 3:30 PM EDT Office Visit [place] [address] Emerson Chand MD [facility] [place] [address] Radiculopathy of lumbosacral region (Primary Dx) Social History Tobacco Use Types Packs/Day Years [...] Sign Reading Time Taken Comments Blood Pressure 151/92 01/13/2021 3:25 PM EDT Pulse 78 01/13/2021 3:25 PM EDT Temperature - - Respiratory Rate - - Oxygen Saturation - - Inhaled Oxygen Concentration - - Weight 88 kg (194 lb) 01/13/2021 3:25 PM EDT Height 177.8 cm (5' 10) 01/13/2021 3:25 PM EDT Body Mass Index 27.84 01/13/2021 3:25 PM EDT documented in this encounter Progress Notes * Emerson Chand MD - 01/13/2021 3:30 PM EDT [facility] - Follow Up Note Date of visit: 01/13/21 : 1960 CC: Chief Complaint Patient presents with ??? Follow-up ??? Back Pain HPI: Grayson Dodd III is a 61 y.o. year old male who presents to the pain clinic today for follow up in regards to his lower back pain. He has been in a work related injury on 01/07/2020, where he sustained both neck and lower back injuries. He has had significant improvement of his neck pain after cervical MB RFA bilaterally. Today, he returns to discuss his lower back and left lower extremity symptoms. Today, the patient rates the pain a 5-8/10. Pain radiates to the LLE. Overall the pain affects activities of daily living. He denies any bowel/ blaader dysfunction. He has left sided weakness and numbness. Has difficulty going down the stairs. PMH/PSH: Patient Active Problem List Diagnosis Code [...] cervical region without myelopathy or radiculopathy M47.812 Past Medical History: Diagnosis Date ??? [...] of Exercise per Session: Not on file MEDICATIONS: Current Outpatient Medications: ??? UNABLE TO FIND, 2,500 mcg daily. Med Name: Vitamin b12, Disp: , Rfl: ??? BD Luer-Kg Syringe 3 mL 22 gauge x 1 Syringe, USE TWICE MONTHLY, Disp: , Rfl: ??? testosterone cypionate (DepoTESTOSTERONE Cypionate) (200mg/mL) injection, Inject 100 mg into the muscle every 14 days., Disp: , Rfl: ??? azithromycin (Zithromax) 250 mg Tablet, 500 mg as needed., Disp: , Rfl: ??? flu vac [id number] 36mos up,PF, (Afluria Qd 2019-,3yr up,,PF,) 60 [...] ROS: Review of Systems PHYSICAL EXAM: BP (!) 151/92 Pulse 78 Ht 177.8 cm (5' 10) Wt 88 kg (194 lb) BMI 27.84 kg/m?? Physical Exam Alert and oriented x3. On focused musculoskeletal exam, he has lumbar paraspinous tenderness over the left sided lumbar area. On focused neurological exam: Left sided foot drag. Difficult to tiptoe on the left SLR (+) L 4/5 Left dorsiflexion, otherwise 5/5 at BLEs Numbness at left foot sole TESTS / IMAGING: MRI - Lumbar : Obtained on 10/08/2020. Reviewed in detail with the patient. Exam(s) MR LUMBAR SPINE WO EXAM: MR LUMBAR SPINE WO CLINICAL HISTORY: persistent lumbar pain and left leg weakness, numbNESS,M54.5. TECHNIQUE: Multiplanar multisequence MRI of the Lumbar spine was performed. COMPARISON: No priors for comparison. FINDINGS: Bones: The last intervertebral disc space is designated the L5/S1 level for the numbering purpose of this examination. The vertebral body heights are well maintained. There is a hemangioma or fatty rest in the L1 vertebral body. There is grade 3 anterolisthesis of L5 on S1. Degenerative endplate signal changes are present at multiple levels of the lumbar spine. Cord: The conus tip ends at the T12 level. It is of normal size and signal intensity. T12-L1: No disc herniations or bulges are present. No central spinal canal or neural foraminal stenosis. L1-2: No disc herniations or bulges are present. No central spinal canal or neural foraminal stenosis. L2-3: There is a mild diffuse disc bulge. There are hypertrophic changes of the facets. These all contribute to cause mild to moderate central spinal canal stenosis. There is moderate right and mild left neural foraminal stenosis. L3-4: There is a mild diffuse disc bulge. There are hypertrophic changes of the facets and ligamentum flavum. These all contribute to cause mild to moderate central spinal canal stenosis. There is mild bilateral neural foraminal stenosis. L4-5: There is a mild diffuse disc bulge. No significant central spinal canal stenosis. There is mild bilateral neural foraminal stenosis. L5-S1: Grade 3 anterolisthesis of L5 on S1. No significant central spinal canal stenosis. Moderately severe bilateral neural foraminal stenosis is present. Soft tissues: The visualized SI joints and sacrum are well maintained. The paraspinal soft tissues are unremarkable. IMPRESSION: Multilevel degenerative changes in the lumbar spine as described above. Multilevel central spinal canal and neural foraminal stenosis is seen. DIAGNOSIS: 1. Radiculopathy of lumbosacral region SURGICAL CASE REQUEST: INJECTION, EPIDURAL, LUMBAR OR SACRAL(CAUDAL), WITH IMAGING GUIDANCE (WRU 1.8) XR Lumbar Spine 2 Or 3 Views (Generic) CANCELED: XR Lumbar Spine 2 Or 3 Views (Generic) ASSESSMENT: 61 y/o M s/p a work related injury on 01/07/2020, with cervical spondylosis, with significant improvement of his neck pain after B cervical MB RFA, now presents with lower back pain radiating to the left lower extremity. His left lower extremity weakness was noted and discussed in detail. He denies any other cauda equina signs or symptoms. We have discussed the sustained weakness in his left LE, and possible need for surgical evaluation,as well as possible irreversibility of his weakness, given the duration of his symptoms. PLAN: Injection:RTC for a caudal NABIL. The procedure, risks, benefits, and alternatives to the procedure were discussed with the patient at length. The patient desires to move forward with the discussed procedure. Procedure: Caudal Epidural Steroid Injection Laterality: Left Levels: N/A Pertinent Medical History - h/o Thrombocytopenia/bleeding tendency/platelet dysfunction: no - h/o Liver disease/abnormal liver function: no - h/o Chronic kidney disease (CKD)/abnormal kidney function: no - Patient on dialysis? no MARTA Risk Stratification - Intermediate Is patient taking an anticoagulant? No Is patient taking any NSAIDs/Nutritional Supplements? No Is patient taking Aspirin? Yes, patient does not need to hold Is patient taking Antibiotics? No Has patient been on greater than 40mg of steroid 14 days or longer or has patient had a steroid injection within the last two weeks? No Does patient have allergies to contrast/local anesthetic/steroid? No Labs? N/A Imaging? In Chart Does patient need IV? no Does patient need sedation? no Does patient need NPO guidelines? no Special Instructions - N/A Follow up post procedure - In Person Office Visit 2-3 weeks with Geoff Lanier MD JUSTIFICATION OF MEDICAL NECESSITY Patient's pain has been present for >6 weeks and is an average of >6/10 on 0-10 scale and/or pain interferes with ADLs. Conservative management includes: -Medications: acetaminophen, NSAIDS, neuropathics, muscle relaxants -Physical Therapy: Patient cannot tolerate physical therapy at the current time due to the intensity of the pain. -Continues clinician directed home exercise program including exercises learned in PT. Medication: No new meds Imaging: Reviewed in detail. Lumbar spine x-rays ordered. Physical therapy/home exercise plan: Continue HEP Emerson Chand MD Attending Physician [facility] [place] [address] / CC: Anisha Xie, PRAFUL [address] [place] [address] documented in this encounter Plan of Treatment Upcoming Encounters Date Type Department Care Team (Late st Contact Info) Description 01/03/2024 8:15 AM EDT Office Visit Dermatology at [place] [address] [place] [phone] Jake Galvez MD [address] [facility] [facility] [place] [address] documented as of this encounter Results * XR Lumbar Spine 2 Or 3 Views (Generic) (01/13/2021 4:46 PM EDT) Anatomical Region Laterality Modality L-spine N/A Digital Radiogra phy Impressions 01/13/2021 4:52 PM EDT No dynamic instability. Redemonstrated grade 4 anterolisthesis of L5 on S1 with dislocation of L5 anterior to S1. Thank you for letting us participate in the care of this patient. ??If you are a health care provider and have any questions regarding this report, please contact the number below. ??For patients who have questions please contact the health manager wound care that requested your imaging first. ? Narrative 01/13/2021 4:52 PM EDT EXAMINATION: XR LUMBAR SPINE 2 OR 3 VIEWS (GENERIC) CLINICAL HISTORY: 61 y/o M s/p work related injury, with permanent lower back pain radiating to LLE, Please obtain AP, and lateral flex/ ext x-rays r/o dynamic instability TECHNIQUE: 3 views of the lumbar spine COMPARISON: MRI 10/08/2020 FINDINGS: There are bilateral total hip arthroplasties. Redemonstrated grade 4 anterolisthesis of L5 on S1 with dislocation of L5 anterior to S1 and with 3.5 cm of overlap. There is no change in alignment with flexion or extension. Slight retrolisthesis of L4 on L5 is unchanged. There is multilevel facet hypertrophy, severe at the lower lumbar spine. There is moderate disc height loss at L3-L4, similar to prior. Procedure Note Loki Frazier MD - 01/13/2021 EXAMINATION: XR LUMBAR SPINE 2 OR 3 VIEWS (GENERIC) CLINICAL HISTORY: 61 y/o M s/p work related injury, with permanent lowerback pain radiating to LLE, Please obtain AP, and lateral flex/ ext x-rays r/o dynamic instability TECHNIQUE: 3 views of the lumbar spine COMPARISON: MRI 10/08/2020 FINDINGS: There are bilateral total hip arthroplasties. Redemonstrated grade 4 anterolisthesis of L5 on S1 with dislocation of L5 anterior to S1 and with3.5 cm of overlap. There is no change in alignment with flexion or extension.Slight retrolisthesis of L4 on L5 is unchanged. There is multilevel facethypertrophy, severe at the lower lumbar spine. There is moderate disc height loss atL3-L4, similar to prior. IMPRESSION No dynamic instability. Redemonstrated grade 4 anterolisthesis of L5 on S1 with dislocation ofL5 anterior to S1. Thank you for letting us participate in the care of this patient. If youare a health care provider and have any questions regarding this report,please contact the number below. For patients who have questions please contactthe health manager wound care that requested your imaging first. Emerson Chand MD IMG DX ORDERABLES documented in this encounter Visit Diagnoses Diagnosis Radiculopathy of lumbosacral region- Primary Thoracic or lumbosacral neuritis or radiculitis, unspecified Radiculopathy of lumbosacral region Thoracic or lumbosacral neuritis or radiculitis, unspecified documented in this encounter Care Teams Reliability Engineer Relationship Specialty Start Date End Date Didier Romero MD [address] [place] [address] PCP - General Family Medicine 01/11/17 documented as of this encounter
--- OUTSIDE RECORDS SUMMARY | 2023-12-25 18:48 | XMS_ITS | Encounter Summary ---
[place] [address] Care Team Providers Care Political Consultant Name Role Phone Didier Romero MD Primary [...] Expiration Date Visits Re quested Visits Authorized [id number] 1 1 Encounter Details Date Type Department Care Team (Latest Contact Info) Description 06/15/2020 7:15 AM EST - 06/15/2020 9:13 AM [facility] Hospital En[place] [address] Emerson Chand MD [facility] [place] [address] Discharge Disposition: Home Social History Tobacco Use [...] Post -Procedure Pain Log Patient: Grayson Dodd [facility] [id number] It is important for you to keep [...] file Gets together: Not on file Attends druze service: Not on file Active member of [...] future. John Honeycutt MD Pain Management Fellow [address] [address] / [facility] documented in this encounter Miscellaneous Notes * Op Note - John Honeycutt MD - 06/15/2020 9:07 AM EST Pain Management Operative Note Patient Name: Grayson Dodd III : [id number] MR#: [id number] Case Date: 06/15/2020 Surgeon: Surgeon(s) and Role: [...] medial branch blocks. COMMENTS: preop 03/13 with Phi's testing Mr. Dodd was interviewed and the [...] scores. John Honeycutt MD Pain Management Fellow [address] [address] / [facility] CC: Didier Romero MD [address] [place] [address] [place] [address] Associated attestation - Emerson Chand MD - [...] 8:15 AM EDT Office Visit Dermatology at [place] [address] [place] [facility] [place] [address] Jake Galvez MD [address] [facility] [place] [address] documented as of this encounter Visit Diagnoses Diagnosis Cervical spondylosis Cervical spondylosis without myelopathy documented [...] Until Sun06/15/20 at 1118, Intra-Operative (Intra-Procedure), Routine 0857 (Given - Provid er: John Honeycutt MD) lidocaine (Xylocaine) (20 mg/mL) 2% injection (CANCELED) ONCE PRN, Starting on Sun06/15/20 at 0901, Until Sun06/15/20 at 1118, Intra-Operative (Intra-Procedure), Routine 900 (Given - Provid er: John Honeycutt MD) documented in this encounter Care Teams Political Consultant Relationship Specialty Start Date End Date Didier Romero MD [address] [place] [address] PCP - General Family Medicine 01/11/17 documented as of this encounter
--- OUTSIDE RECORDS SUMMARY | 2023-12-25 18:48 | XMS_ITS | Encounter Summary ---
[place] [address] Care Team Providers Care Jewel Setter Name Role Phone Didier Romero MD Primary Care Provider + Reason for Visit * Auth/Cert Specialty Diagnoses / Procedures Referred By Contac t Referred To Contact Diagnoses Cervical spondylosis Cervical Spondylosis Procedures PRO DSTR PARAVERTEBRAL FCT JNT NRVES CERVICAL OR THORACIC SINGLE RADIOFREQUENCY ABLATION,SINGLE FACET JOINT,CERVICAL (WRVU 3.84) Referral ID Status Reason Start Date Expiration Date Visits Re quested Visits Authorized [id number] 1 1 Encounter Details Date Type Department Care Team (Late Contact Info) Description 12/16/2020 7:30 AM EDT Ancillary Procedure [place] [address] Emerson Chand MD [facility] [place] [address] Pain Social History Tobacco Use Types Packs/Day [...] 8:15 AM EDT Office Visit Dermatology at [address] [place] [place] [address] Jake Galvez MD [address] [facility] [place] [address] documented as of this encounter Procedures Procedure Name Priority Date/Time Associated Diagnosis Comments FILM LIBRARY STORAGE ONLY PAIN CLINIC C ARM Routine 12/16/2020 10:56 AM EDT Pain documented in this encounter Results * Film Library- Storage Only pain Clinic C-Arm (12/16/2020 10:56 AM EDT) Narrative [facility] [place] - 12/16/2020 10:56 AM EDT See PACS for result report. Emerson Chand MD IMG FILM LIBRARY ORD ERABLES [place], [place] documented in this encounter Visit Diagnoses Diagnosis Pain Generalized pain documented in this encounter Care Teams Jewel Setter Relationship Specialty Start Date End Date Didier Romero MD [address] [place] [address] PCP - General Family Medicine 01/11/17 documented as of this encounter
--- OUTSIDE RECORDS SUMMARY | 2023-12-25 18:48 | XMS_ITS | Encounter Summary ---
[place] [address] Care Team Providers Care Software Developer Name Role Phone Didier Romero MD Primary Care Provider + Encounter Details Date Type Department Care Team (Late st Contact Info) Description 07/01/2020 Telephone [place] [phone] Kayley Mckeon, RN Social History Tobacco Use [...] Telephone Encounter - Kayley Mckeon RN - 07/01/2020 1:31 PM EST Grayson Dodd III :[id number] Message left: I left a message on answering machine Mr. Dodd at 1:31 PM regarding his upcoming Right cervical medial branch block with Dr. Marco A Chand MD. Message included the followin. Patient instructed to arrive at 07:00 on 07/06/20 with their form setter/driver. 2. Following instructions left in the message: [...] your body within the last two weeks? Hernan MARINELLI documented in this encounter Plan of Treatment Upcoming Encounters Date Type Department Care Team (Late st Contact Info) Description 01/03/2024 8:15 AM EDT Office Visit Dermatology at [place] [address] [place] [address] Jake Galvez MD [address] [facility] DERMATOLOGY [place], [place] [id number] documented as of this encounter Visit Diagnoses Not on filedocumented in this encounter Care Teams Software Developer Relationship Specialty Start Date End Date Didier Romero MD [address] [place] [address] PCP - General Family Medicine 01/11/17 documented as of this encounter
--- OUTSIDE RECORDS SUMMARY | 2023-12-25 18:48 | XMS_ITS | Encounter Summary ---
[place] [address] Care Team Providers Care Senior Executive Assistant Name Role Phone Didier Romero MD Primary Care Provider + Encounter Details Date Type Department Care Team (Late st Contact Info) Description 11/18/2020 Telephone [facility] [place] [phone] Kenyatta Solorzano, RN Social History Tobacco Use [...] Telephone Encounter - Kenyatta Solorzano RN - 11/18/2020 4:03 PM EDT [facility] MBB/RF Risk Stratification Post-procedure phone call from patient to report her response to the cervical medial branch block procedure performed on 11/18/20 in the Pain Management Center by Marco A Chand MD. This is patient's: first medial branch block. Patient reports that after the procedure she experienced: _X_ Patient reported post-block numeric pain scale: 1 /10 (average pain since procedure) _X_ Post-procedure pain has been reduced by 80%. (> 80% Medicare/MVP/Medicaid) X__ If relief > 80% with ability to perform painful maneuvers; schedule 2nd MBB: yes _X_ Post-procedure pain has been reduced by 80%. (> 50% all other insurers) _X_ Pain relief: moderate If pain is reduced, it lasted: Yes 4 hours or greater Changes in functional status post procedure: turn head without pain Pertinent recent trauma or surgery? no If yes; consult w referring provider If No, proceed Have you had any steroid injections anywhere in your body within the last two weeks? no Patient taking, or having taken oral steroids in the last 2 wks (14 days)? no Patient taking any NSAIDs? no Patient taking Aspirin or Aggrenox (dipyridamole) yes If yes, dose: 81 mg If taking ASA; please ask the following questions to assist in determining ASA hold instructions - h/o Myocardial Infarction (MS): no - h/o Coronary Artery Disease (CAD): no - h/o Stroke: no: - h/o Arteriosclerotic Vascular Disease (ASCVD): no - h/o Transient Ischemic Attack (TIA): yes - h/o Atrial Fibrillation (AFib): no - h/o Deep Vein Thrombosis (DVT): no Pt taking Coumadin? no If yes and risk level requires that coumadin be stopped prior the RN will place per protocol order for INR/PT/PTT and the manager of change will arrange a lab visit 1 hr prior to procedure. Diagnosed/treated for an active infection in the past 2 wks? no Patient taken an antibiotic in the past 2 wks? no Abx taken routinely as prophylaxis? no Per pt report; any current sxs suggestive of active infection? no Covid positive contacts - none Is patient scheduled for covid vaccine? Fully vaccinated 09/23/20 2nd dose If yes, make sure vaccine is 2 weeks before or 2 weeks after vaccine. Patient has pacemaker/defibrillator: no MARTA Questions pertaining [...] the requested procedure is stratified as a: Intermediate risk Do not stop ASA Based on the information provided above and after discussion with the patient, the following actions will be taken: _X_ Patient meets criteria to proceed to second Left at C3, C4, C5 and C6 cervical medial branch block. Disposition: Patient transferred to manager of change to arrange requested injection. Patient's questions regarding requested procedure were answered and patient verbalized understanding. knows how to contact the [facility] and understands that he may do so atany time should he develop any questions or concerns. [employer] [facility] documented in this encounter Plan of Treatment Upcoming Encounters Date Type Department Care Team (Late st Contact Info) Description 01/03/2024 8:15 AM EDT Office Visit Dermatology at [place] [address] [facility] [place] [address] Jake Galvez MD [address] [facility] [place] [address] documented as of this encounter Visit Diagnoses Not on filedocumented in this encounter Care Teams Senior Executive Assistant Relationship Specialty Start Date End Date Didier Romero MD [address] [place] [address] PCP - General Family Medicine 01/11/17 documented as of this encounter
--- OUTSIDE RECORDS SUMMARY | 2023-12-25 18:48 | XMS_ITS | Encounter Summary ---
[place] [address] Care Team Providers Care Pipe Layer Helper Name Role Phone Didier Romero MD Primary [...] Expiration Date Visits Re quested Visits Authorized [id number] 1 1 Encounter Details Date Type Department Care Team (Latest Contact Info) Description 07/06/2020 6:59 AM EST - 07/06/2020 8:33 AM [facility] Hospital [place] [address] Emerson Chand MD [facility] [place] [address] Discharge Disposition: Home Social History Tobacco Use [...] Sign Reading Time Taken Comments Blood Pressure 121/65 07/06/2020 8:20 AM EST Pulse - - Temperature - - Respiratory Rate 16 07/06/2020 8:20 AM EST Oxygen Saturation 100% 07/06/2020 7:10 AM EST Inhaled Oxygen Concentration - - Weight 87.1 kg (192 lb) 07/06/2020 7:10 AM EST Height 177.8 cm (5' 10) 07/06/2020 7:10 AM EST Body Mass Index 27.55 07/06/2020 7:10 AM EST documented in this encounter Discharge Instructions * Discharge Instructions* Bharati Perez RN - 07/06/2020 8:32 AM EST Pain [...] Procedure Date/Time Order Dose Route Action 07/06/2020 0826 BUpivacaine (pf) (Marcaine) (2.5 mg/mL) 0.25% injection [...] -Procedure Pain Log Patient: Grayson Dodd III [id number] It is important for you to keep [...] Right sided neck PAIN LEVEL AT REST 10 PAST MEDICAL HISTORY: Past Medical History: Diagnosis [...] file Gets together: Not on file Attends jehovah's witness service: Not on file Active member of [...] Attending [facility] [place] [address] / documented in this encounter Miscellaneous Notes * Op Note - Emerson Chand MD - 07/06/2020 8:33 AM EST Pain Management Operative Note Patient Name: Grayson Dodd III : [id number] MR#: [id number] Case Date: 07/06/2020 Surgeon: Surgeon(s) and Role: [...] Attending [facility] [place] [address] / CC: Didier Romero MD [address] [place] [address] [place] [address] documented in this encounter Plan of Treatment Upcoming Encounters Date Type Department Care Team (Late st Contact Info) Description 01/03/2024 8:15 AM EDT Office Visit Dermatology at [place] [address] [facility] [place] [address] Jake aGlvez MD [address] [facility] DERMATOLOGY [place], [place] [id number] documented as of this encounter Visit Diagnoses Not on filedocumented in this encounter Active and Recently Administered Medications Times are shown in EST. PRN Medication Order 07/04/2020 07/05/2020 07/06/2020 BUpivacaine (pf) (Marcaine) (2.5 mg/mL) 0.25% injection (CANCELED) ONCE PRN, Starting on Sun07/06/20 at 0826, Until Sun07/06/20 at 1035, Intra-Operative (Intra-Procedure), Routine 825 (Given - Provid er: Emerson Chand MD) dexamethasone (PF) (Decadron) (10 mg/mL) injection (CANCELED) ONCE PRN, Starting on Sun07/06/20 at 0827, Until Tu07/06/20 at 1035, Intra-Operative (Intra-Procedure), Routine 826 (Given - Provid er: Emerson Chand MD) iohexoL (Omnipaque) (240 mg/mL) injection solution (CANCELED) ONCE PRN, Starting on Sun07/06/20 at 0826, Until Sun07/06/20 at 1035, Intra-Operative (Intra-Procedure), Routine 0826 (Given - Provid er: Emerson Chand MD) documented in this encounter Care Teams Pipe Layer Helper Relationship Specialty Start Date End Date Didier Romero MD [address] [place] [address] PCP - General Family Medicine 01/11/17 documented as of this encounter
--- OUTSIDE RECORDS SUMMARY | 2023-12-25 18:48 | XMS_ITS | Encounter Summary ---
[place] [address] Care Team Providers Care Rotary Slicing Machine Operator Name Role Phone Didier Romero MD Primary Care Provider + Encounter Details Date Type Department Care Team (Late st Contact Info) Description 12/03/2020 Telephone [place] [phone] Kenyatta Solorzano, RN Social History Tobacco Use [...] Telephone Encounter - Kenyatta Solorzano RN - 12/03/2020 9:17 AM EDT [facility] MBB/RF Risk Stratification Post-procedure phone call from patient to report her response to the cervical medial branch block procedure performed on 12/02/20 in the Pain Management Center by Marco A Chand MD. This is patient's: second medial branch block. Patient reports that after the procedure she experienced: _X_ Patient reported post-block numeric pain scale: 1 /10 (average pain since procedure) _X_ Post-procedure pain has been reduced by 80%. (> 80% Medicare/MVP/Medicaid) _X_ If relief > 80% with ability to perform painful maneuvers; schedule RFA: yes _X_ Post-procedure pain has been reduced by 80%. (> 50% all other insurers) _X_ Pain relief: moderate If pain is reduced, it lasted: Yes 24 hours or greater Changes in functional status post procedure: Improved sleep, move head/neck better without pain Pertinent recent trauma or surgery? [...] Aggrenox (dipyridamole) yes If yes, dose: 81 Is this self prescribed or ordered by a provider: ordered If ordered; Name of prescribing provider: Nick If taking ASA; please ask the following questions to assist in determining ASA hold instructions - h/o Myocardial Infarction (OK): no - h/o Coronary Artery Disease (CAD): [...] per protocol order for INR/PT/PTT and the operating room scheduler will arrange a lab visit 1 hr prior to procedure. Diagnosed/treated for an active infection in the past 2 wks? no Patient taken an antibiotic in the past 2 wks? no Abx taken routinely as prophylaxis? no Per pt report; any current sxs suggestive of active infection? no Is patient scheduled for covid vaccine? 09/22/20 second dose If yes, make sure vaccine is [...] and would like to proceed with a left cervical spine at C3, C4, C5 and C6 Radiofrequency procedure with Marco A Chand MD. Disposition: Patient transferred to operating room scheduler to arrange requested injection. Patient's questions regarding [...] 8:15 AM EDT Office Visit Dermatology at [address] [address] Jake Galvez MD [address] [facility] [place] [address] documented as of this encounter Visit Diagnoses Not on filedocumented in this encounter Care Teams Rotary Slicing Machine Operator Relationship Specialty Start Date End Date Didier Romero MD [address] [place] [address] PCP - General Family Medicine 01/11/17 documented as of this encounter
--- OUTSIDE RECORDS SUMMARY | 2023-12-25 18:48 | XMS_ITS | Encounter Summary ---
[place] [address] Care Team Providers Care Engineering Administrator Name Role Phone Didier Romero MD [...] Expiration Date Visits Re quested Visits Authorized [id number] 1 1 Encounter Details Date Type Department Care Team (Late st Contact Info) Description 07/06/2020 7:30 AM EST Ancillary [place] [address] Emerson Chand MD [facility] [place] [address] Pain Social History Tobacco Use Types Packs/Day [...] 8:15 AM EDT Office Visit Dermatology at [place] [address] [facility] [place] [address] Jake Galvze MD [address] [facility] [place] [address] documented as of this encounter Procedures Procedure Name Priority Date/Time Associated Diagnosis Comments FILM LIBRARY STORAGE ONLY PAIN CLINIC C ARM Routine 07/06/2020 3:28 PM EST Pain documented in this encounter Results * Film Library- Storage Only pain Clinic C-Arm (07/06/2020 3:28 PM EST) Narrative [facility] - 07/06/2020 3:28 PM EST See PACS for result report. Emerson Chand MD IM FILM LIBRARY ORD ERABLES Performing Organization Address City/State/[facility] Co de Phone Number [place], [place] documented in this encounter Visit Diagnoses Diagnosis Pain Generalized pain documented in this encounter Care Teams Engineering Administrator Relationship Specialty Start Date End Date Didier Romero MD [address] [place] [address] PCP - General Family Medicine 01/11/17 documented as of this encounter
--- OUTSIDE RECORDS SUMMARY | 2023-12-25 18:48 | XMS_ITS | Encounter Summary ---
Author Organization [facility] Address [facility] [place] [address] Care Team Providers Care Funeral Greeter Name Role Phone Didier Romero MD Primary Care Provider + Encounter Details Date Type Department Care Team (Late st Contact Info) Description 09/06/2020 1:30 PM EDT Office Visit [facility] Sp[facility] at [facility] [place] [address] Geoff Lanier MD [facility] [place] [address] Cervicalgia; Cervical spondylosis; Myofascial pain Social History Tobacco Use Types [...] as of this encounter Progress Notes * Geoff Lanier MD - 09/06/2020 1:30 PM EDT CC: Bilateral upper trapezius and left arm pains Subjective: The patient returns for follow-up, status post right C3, C4, C5 and C6 radiofrequency ablation on 07/26/2020. The patient feels that his symptoms have improved. Headache pain has resolved, as has painin the upper neck. He reports residual pain in the right upper trapezius with end range right neck rotation and pain in left upper trapezius at end range left neck rotation and lateral flexion. Additional symptoms include dull aching in left axilla and posterior arm. The pattern of left upper extremity pain is as noted above. Sensory symptoms include numbness and tingling, in circumferential distribution, distal to the left elbow. The patient denies focal upper extremity weakness. The patient continues to work at modified duty status, 4-5 days/week with 15 pound lifting restriction. Clinical materials reviewed: 1. Procedure note of Emerson Chand MD, 07/26/2020. Right C3, C4, C5 and C6 radiofrequency ablation was completed. Past Medical History: Diagnosis Date ??? Gout ??? Hx of hypogonadism ??? Hypertension ??? Type 2 diabetes mellitus Current Outpatient Medications on File Prior to Visit Medication Sig Dispense Refill ??? azithromycin (Zithromax) 250 mg Tablet 500 mg as needed. ??? flu vac [id number] 36mos up,PF, (Afluria Qd ,3yr up,,PF,) 60 [...] GlPk 50 MG/5 GRAM, TD, Once daily No current facility-administered medications on file prior to visit. Allergies Allergen Reactions ??? Dilaudid [Hydromorphone (Pf)] Other (See Comments) Lowers blood pressure ??? Chlorhexidine Gluconate Other reaction(s): Rash & Burning ??? Oxycodone-Acetaminophen Other reaction(s): Hallucinations ??? Pollen Extracts ??? Telfa [Adhesive Bandage] Rash Review of Systems: As above. Objective: The patient is a well-developed and well-nourished male in no apparent distress. Alert and oriented x3. Affect is appropriate. Gait and station: Gait is normal. There is no difficulty performing bilateral heel or toe walking. Neck is mildly protracted. Cervical motion: Active flexion 45 degrees, associated with midline posterior basal neck pain at end range. Active extension 50 degrees and painless. Mild restriction is noted in right cervical rotation, resulting in ipsilateral upper trapezius pain. Moderate restrictions are noted in bilateral lateral rotation. Lateral rotation to the right produces bilateral upper trapezius pain, while left lateral flexion produces right upper trapezius pain. Palpation: There is tenderness to palpation of right upper trapezius. Left upper trapezius is nontender, but palpation results in referred pain to left axilla. Motor: 5/5 throughout the upper extremities. Sensation: Intact to light touch throughout the upper extremities. Muscle stretch reflexes: 2+ bilaterally for biceps, triceps and brachioradialis. Assessment: Encounter Diagnoses Name Primary? Cervicalgia ??? Cervical spondylosis ??? Myofascial pain The patient has had a good clinical response to right cervical radiofrequency ablation. Neck and headache pains have resolved. The patient reports residual pain in upper trapezius. I will confer withDr. Aner regarding the potential clinical utility of left-sided diagnostic cervical medial branch blocks and radiofrequency ablation. I cannot exclude a myofascial component to the patient's ongoing left upper extremity symptoms. I note the development of referred pain to the left axilla with soft tissue palpation in left shoulder girdle. Despite ongoing left upper extremity sensory symptoms, previous electrodiagnostic testing was found to be negative for a left cervical radicular process. Consideration may be given to enrollment in the functional temple program once interventional treatment has been completed. The patient may continue working at part-time modified duty status with the restrictions previouslyassigned to him by his primary treating provider, Ms. Xie. If evaluation of chronic low back pain is desired by patient and primary treating provider, a formal request for consultation should be submitted. Plan: 1. MD to confer with Dr. Chand regarding possible left diagnostic cervical medial branch blocks/RFA. 2. Follow-up here on an as-needed basis. Total time spent on date of encounter = 33 minutes. Geoff Lanier MD, MS 09/06/2020 documented in this encounter Plan of Treatment Upcoming Encounters Date Type Department Care Team (Late st Contact Info) Description 01/03/2024 8:15 AM EDT Office Visit Dermatology at [place] [address] [facility] [place] [phone] Jake Galvez MD [address] [facility] [place] [address] documented as of this encounter Visit Diagnoses Diagnosis Cervicalgia Cervical spondylosis Cervical spondylosis without myelopathy Myofascial pain Mylagia and myositis, unspecified documented in this encounter Care Teams Funeral Greeter Relationship Specialty Start Date End Date Didier Romero MD [address] [place] [address] PCP - General Family Medicine 01/11/17 documented as of this encounter
--- OUTSIDE RECORDS SUMMARY | 2023-12-25 18:48 | XMS_ITS | Encounter Summary ---
[place] [address] Care Team Providers Care Biofuels Manager Name Role Phone Didier Romero MD [...] Expiration Date Visits Re quested Visits Authorized [id number] 1 1 Encounter Details Date Type Department Care Team (Late st Contact Info) Description 06/15/2020 8:15 AM EST Ancillary [place] [phone] Emerson Chand MD [facility] [place] [address] Pain Social History Tobacco Use Types Packs/Day [...] 8:15 AM EDT Office Visit Dermatology at [place] [address] [place] [phone] Jake Galvez MD [address] [facility] [place] [address] documented as of this encounter Procedures Procedure Name Priority Date/Time Associated Diagnosis Comments FILM LIBRARY STORAGE ONLY PAIN CLINIC C ARM Routine 06/15/2020 4:59 PM EST Pain documented in this encounter Results * Film Library- Storage Only pain Clinic C-Arm (06/15/2020 4:59 PM EST) Narrative [facility] - 06/15/2020 4:59 PM EST See PACS for result report. Emerson Chand MD IM FILM LIBRARY ORD ERABLES Performing Organization Address City/State/[facility] Co de Phone Number [place], [place] documented in this encounter Visit Diagnoses Diagnosis Pain Generalized pain documented in this encounter Care Teams Biofuels Manager Relationship Specialty Start Date End Date Didier Romero MD [address] [place] [address] PCP - General Family Medicine 01/11/17 documented as of this encounter
--- OUTSIDE RECORDS SUMMARY | 2023-12-25 18:48 | XMS_ITS | Encounter Summary ---
[place] [address] Care Team Providers Care Tafe Registrar Name Role Phone Didier Romero MD Primary Care Provider + Encounter Details Date Type Department Care Team (Late st Contact Info) Description 10/08/2020 Ancillary Procedure [place] [phone] Didier Romero MD [facility] [address] [place], [place] [address] Social History Tobacco Use Types Packs/Day Years [...] 8:15 AM EDT Office Visit Dermatology at [place] [address] [facility] [address] Jake Galvez MD [address] [facility] [place] [address] documented as of this encounter Procedures Procedure Name Priority Date/Time Associated Diagnosis Comments FILM LIBRARY STORAGE ONLY MR SPINE Routine 10/08/2020 12:00 AM EDT documented in this encounter Results * Film Library- Storage Only MR Spine (10/08/2020 12:00 AM EDT) Narrative [facility] - 11/25/2020 3:26 PM EDT This exam is auto-finalizing. It's purpose is for storage only. Didier Romero MD IMG FILM LIBRARY ORDERABLES Performing Organization Address City/State/[facility] Co de Phone Number [place], [place] documented in this encounter Visit Diagnoses Not on filedocumented in this encounter Care Teams Tafe Registrar Relationship Specialty Start Date End Date Didier Romero MD [address] [place] [address] PCP - General Family Medicine 01/11/17 documented as of this encounter
--- OUTSIDE RECORDS SUMMARY | 2023-12-25 18:48 | XMS_ITS | Encounter Summary ---
Author Organization [facility] Address [facility] [place] [address] Care Team Providers Care Water Vessel Captain Name Role Phone Didier Romero MD Primary Care Provider + Encounter Details Date Type Department Care Team (Latest Contact Info) Description 01/13/2021 4:23 PM EDT - 01/13/2021 11:59 PM EDT Hospital Encounter XRay at [address] [place] [address] Emerson Chand MD [facility] [place] [address] Radiculopathy of lumbosacral region Discharge Disposition: Home Social History Tobacco [...] the muscle every 14 days. flu vac [id number] 36mos up,PF, (Afluria Qd 2020-21,3yr up,,PF,) 60 [...] mg Tablet 500 mg as needed. 02/03/2021 allopurinol (ZYLOPRIM) 300 mg tablet Take 300 mg by mouth daily. 01/01/2023 documented as of this encounter Plan of Treatment Upcoming Encounters Date Type Department Care Team (Late st Contact Info) Description 01/03/2024 8:15 AM EDT Office Visit Dermatology at [place] [address] [place] [address] Jake Galvez MD [address] [facility] [place] [address] documented as of this encounter Procedures Procedure Name Priority Date/Time Associated Diagnosis Comments XR LUMBAR SPINE 2 OR 3 VIEWS Routine 01/13/2021 4:46 PM EDT Radiculopathy of lumbosacral region documented in this encounter Results * XR Lumbar Spine [...] who have questions please contact the health dog daycare provider that requested your imaging first. ? Electronically signed by: Loki Frazier MD, [facility] ([phone]), at 01/13/2021 4:52 PM Narrative 01/13/2021 4:52 PM EDT EXAMINATION: XR [...] patients who have questions please contactthe health dog daycare provider that requested your imaging first. Electronically signed by: Loki Frazier MD, [facility]([phone]), at 01/13/2021 4:52 PM Emerson Chand MD IMG DX ORDERABLES documented in this encounter Visit Diagnoses Diagnosis Radiculopathy of lumbosacral region Thoracic or lumbosacral neuritis or radiculitis, unspecified documented in this encounter Care Teams Water Vessel Captain Relationship Specialty Start Date End Date Didier Romero MD [address] [place] [address] PCP - General Family Medicine 01/11/17 documented as of this encounter
--- OUTSIDE RECORDS SUMMARY | 2023-12-25 18:48 | XMS_ITS | Encounter Summary ---
[place] [address] Care Team Providers Care Special Equipment Technician Name Role Phone Didier Romero MD Primary Care Provider + Reason for Visit * Auth/Cert Specialty Diagnoses / Procedures Referred By Contac t Referred To Contact Diagnoses Lumbosacral radiculopathy Procedures PRO INJECTION DX/THER SBST INTRLMNR LMBR/SAC W/IMG GDN INJECTION, EPIDURAL, LUMBAR OR SACRAL (CAUDAL), WITH IMAGING GUIDANCE (WRVU 1.8) Referral ID Status Reason Start Date Expiration Date Visits Re quested Visits Authorized [id number] 1 1 Encounter Details Date Type Department Care Team (Latest Contact Info) Description 02/03/2021 8:18 AM EDT - 02/03/2021 10:19 AM EDT Hospital [place] [address] Emerson Chand MD [facility] [place] [address] Radiculopathy of lumbosacral region Discharge Disposition: Home [...] Sign Reading Time Taken Comments Blood Pressure 161/108 02/03/2021 10:05 AM EDT Pulse - - Temperature - - Respiratory Rate - - Oxygen Saturation 99% 02/03/2021 10:10 AM EDT Inhaled Oxygen Concentration - - [...] the muscle every 14 days. flu vac [id number] 36mos up,PF, (Afluria Qd 2019-,3yr up,,PF,) 60 [...] Carlos Enrique Arroyo MD Pain Medicine Fellow [address] [phone] / [facility] documented in this encounter Miscellaneous Notes * Op Note - Carlos Enrique Arroyo MD - 02/03/2021 10:01 AM EDT Pain Management Operative Note Patient Name: Grayson Dodd III : [id number] MR#: [id number] Case Date: 02/03/2021 Surgeon: Surgeon(s) and Role: [...] Carlos Enrique Arroyo MD Pain Medicine Fellow [address] [phone] / [facility] CC: Didier Romero MD [address] [place] [phone] Associated attestation - Emerson Chand MD - [...] AM EDT Office Visit Dermatology at [address] [phone] Jake Galvez MD [address] [facility] [place] [address] Scheduled Orders Name Type Priority Associated Diagnoses [...] or radiculitis, unspecified documented in this encounter Active and Recently [...] MD) documented in this encounter Care Teams Special Equipment Technician Relationship Specialty Start Date End Date Didier Romero MD [facility] [place] [place] [address] PCP - General Family Medicine 01/11/17 documented as of this encounter
--- OUTSIDE RECORDS SUMMARY | 2023-12-25 18:48 | XMS_ITS | Encounter Summary ---
Author Organization [facility] [place] [address] Care Team Providers Care Risk Compliance Manager Name Role Phone Didier Romero MD [...] Expiration Date Visits Re quested Visits Authorized [id number] 1 1 Encounter Details Date Type Department Care Team (Late st Contact Info) Description 12/02/2020 8:30 AM EDT - 12/02/2020 9:00 AM EDT Surgery [place] [phone] Emerson Chand MD [facility] [place] [address] INJECTION, FACET JOINT,W/FLUORO, CERVICAL, SINGLE (WRVU 1.82) [...] Sign Reading Time Taken Comments Blood Pressure 128/64 12/02/2020 9:00 AM EDT Pulse - - Temperature - - Respiratory Rate - - Oxygen Saturation 97% 12/02/2020 9:00 AM EDT Inhaled Oxygen Concentration - - Weight - - Height - - Body Mass Index - - documented in this encounter Discharge Instructions * Discharge Instructions* Malick Ramriez W - 12/02/2020 9:42 AM EDT Pain [...] Date/Time Order Dose Route Action {\field{\*\fldinst HYPERLINK ecmd:ord?dh=[id number]}{\fldrslt \18 12/02/2020 0920}} BUpivacaine (pf) (Marcaine) (2.5 mg/mL) 0.25% injection 2 mL Other Given {\field{\*\fldinst HYPERLINK ecmd:ord?ho=[id number]}{\fldrslt \18 12/02/2020 0908}} iohexoL (Omnipaque) (240 mg/mL) injection solution 1 mL Other Given {\field{\*\fldinst HYPERLINK ecmd:ord?bg=[id number]}{\fldrslt \18 12/02/2020 0938}} lidocaine (pf) (Xylocaine) (10 mg/mL) [...] Center Post -Procedure Pain Log Patient: Grayson Garayloida [facility] [id number] It is important for you to keep [...] Syringe USE TWICE MONTHLY 09/23/2020 flu vac [id number] 36mos up,PF, (Afluria Qd 2019-,3yr up,,PF,) 60 [...] Left neck PAIN LEVEL AT REST 10/11, /10 with modified kemps PAST MEDICAL HISTORY: Past [...] Tablet 500 mg as needed. flu vac [id number] 36mos up,PF, (Afluria Qd 2019-,3yr up,,PF,) 60 [...] C3,4,5,6 John Honeycutt MD Pain Management Fellow [place] [phone] / [facility] documented in this encounter Miscellaneous Notes * Op Note - Emerson Chand MD - 12/02/2020 9:07 AM EDT Pain Management Operative Note Patient Name: Grayson Dodd III : [id number] MR#: [id number] Case Date: 12/02/2020 Surgeon: Surgeon(s) and Role: [...] bupivacaine was injected at each level. Mr. Floyd vital signs were stable throughout the procedure [...] Attending [facility]ician [facility] [place] [address] / CC: Didier Romero MD [address] [place] [phone] documented in this encounter Plan of Treatment Upcoming Encounters Date Type Department Care Team (Late st Contact Info) Description 01/03/2024 8:15 AM EDT Office Visit Dermatology at [place] [address] [facility] [place] [phone] Jake Galvez MD [address] [facility] [place] [address] documented as of this encounter Visit Diagnoses Not on filedocumented in this encounter Administered Medications Inactive Administered Medications - up to 3 most recent administrations Medication Order MAR Action Action Date Dose Rate Site BUpivacaine (pf) (Marcaine) (2.5 mg/mL) 0.25% injection ONCE PRN, Starting on Ginger 12/02/20 at 0920, Until Ginger 12/02/20 at 1145, Intra-Operative (Intra-Procedure), Routine Given 12/02/2020 9:20 AM EDT 2 mLs iohexoL (Omnipaque) (240 mg/mL) injection solution ONCE PRN, Starting on Ginger 12/02/20 at 0908, Until Ginger 12/02/20 at 1145, Intra-Operative (Intra-Procedure), Routine Given 12/02/2020 9:08 AM EDT 1 mL lidocaine (pf) (Xylocaine) (10 mg/mL) 1% injection ONCE PRN, Starting on Ginger 12/02/20 at 0938, Until Ginger 12/02/20 at 1145, Intra-Operative (Intra-Procedure), Routine Given 12/02/2020 9:38 AM EDT 5 mLs documented in this [...] MD) documented in this encounter Care Teams Risk Compliance Manager Relationship Specialty Start Date End Date Didier Romero MD [address] [place] [address] PCP - General Family Medicine 01/11/17 documented as of this encounter
--- OUTSIDE RECORDS SUMMARY | 2023-12-25 18:49 | XMS_ITS | Encounter Summary ---
Author Organization [facility] [place] [address] Care Team Providers Care Feed Handler Name Role Phone Jose Calvo MD Primary Care Provider Encounter Details Date Type Department Care Team (Late st Contact Info) Description 07/11/2010 1:30 PM EST Office [place] [address] Humaira Pablo MD [facility] DR [place]IN[place] [address] Discharge Disposition: Home Social History Tobacco Use Types Packs/Day Years Used Date Smoking Tobacco: Never Assessed Sex and Gender Information Value Date Recorded Sex Assigned at Not on file Gender Identity Not on file Sexual Orientation Not on file documented as of this encounter Plan of Treatment Upcoming Encounters Date Type Department Care Team (Late st Contact Info) Description 01/03/2024 8:15 AM EDT Office Visit Dermatology at [address] [phone] Jake Galvez MD [address] [facility] [place] [address] documented as of this encounter Visit Diagnoses Not on filedocumented in this encounter Care Teams Feed Handler Relationship Specialty Start Date End Date Jose Calvo MD PCP - General 06/13/10 09/13/15 documented as of this encounter
--- OUTSIDE RECORDS SUMMARY | 2023-12-25 18:49 | XMS_ITS | Encounter Summary ---
[place] [address] Care Team Providers Care Metal Buffer Name Role Phone Didier Romero MD Primary Care Provider + Reason for Visit * Reason Comments Follow-up Encounter Details Date Type Department Care Team (Late st Contact Info) Description 08/18/2019 1:45 PM EDT Office Visit Dermatology at [address] [phone] Jake Galvez MD [address] [facility] [place] [address] History of SCC (squamous cell carcinoma) of skin; History of malignant melanoma; AK (actinic keratosis) [...] Progress Notes * Jake Galvez MD - 08/18/2019 1:45 PM EDT Problem: 1. ??Early repeat skin checkup 2. ??History of malignant melanoma, 1 mm Breslow depth, July 2011 diagnosed in [place], right inferior axillary vault area, with a negative sentinel lymph node biopsy 3. 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 ??History of lichen simplex left medial calf and right arm controled??with clobetasol cream prn Bruno follows today with his Arlen. He is noticing multiple new red spots on his forearms. Physical examination reveals a pleasant 59-year-old gentleman who has diffuse actinic keratoses widely over the dorsal forearms up to the short sleeve eden on his arms, sparing the volar arms, and affecting somewhat his dorsal hands. He has a couple spots on either cheek as well. Assessment and plan: Actinic keratosis dorsal forearms, widespread 1. Begin 5 fluorouracil 5% cream applying twice daily for 2 weeks dorsal forearms hands then returnto clinic. Dispense 40 g with 1 refills 2. Begin triamcinolone 0.1% cream apply on a twice daily basis 30 minutes after each 5-FU application to same sites. Dispense 30 g with 1 refill 3. Return to clinic in 2 weeks for repeat check. May need to go for an additional week of therapy Actinic keratosis bilateral cheeks and ears 1. LN2 x2 applied each of 4 sites. Cc: Didier Romero MD documented in this encounter Plan of Treatment Upcoming Encounters Date Type Department Care Team (Late st Contact Info) Description 01/03/2024 8:15 AM EDT Office Visit Dermatology at [address] [address] Jake Galvez MD [address] [place] [address] [place] [address] documented as of this encounter Visit Diagnoses Diagnosis History of SCC (squamous cell carcinoma) of skin Personal history of other malignant neoplasm of skin History of malignant melanoma Personal history of malignant melanoma of skin AK (actinic keratosis) Actinic keratosis documented in this encounter Care Teams Metal Buffer Relationship Specialty Start Date End Date Didier Romero MD [address] [place] [address] PCP - General Family Medicine 01/11/17 documented as of this encounter
--- OUTSIDE RECORDS SUMMARY | 2023-12-25 18:49 | XMS_ITS | Encounter Summary ---
Author Organization Pending Sale To [place] [address] Care Team Providers Care Range Technician Name Role Phone Didier Romero MD Primary Care Provider + Encounter Details Date Type Department Care Team (Latest Contact Info) Description 04/23/2020 9:36 PM EST - 04/23/2020 11:59 PM [facility] Hospital [place] [address] Discharge Disposition: Home Social History Tobacco Use [...] to clinic 40 g 1 08/18/2019 09/06/2020 celecoxib (CELEBREX) 200 mg Capsule 0 10/31/2017 05/17/2020 clobetasol (TEMOVATE) 0.05 % Ointment Apply twice [...] 07/11/2010 12/16/2020 documented as of this encounter Plan of Treatment Upcoming Encounters Date Type Department Care Team (Late st Contact Info) Description 01/03/2024 8:15 AM EDT Office Visit Dermatology at [address] [place] [address] Jake Galvez MD [address] [facility] [place] [address] documented as of this encounter Procedures Procedure Name Priority Date/Time Associated Diagnosis Comments SURGICAL PATHOLOGY REPORT Routine 04/23/2020 12:00 PM EST documented in this encounter Results * Surgical Pathology Report (04/23/2020 12:00 PM EST) FINAL DIAGNOSIS (AP) [id number] ? Location: OPW The signing pathologist has (i) examined the relevant preparation(s) for the specimen(s) and (ii) rendered or confirmed the diagnosis(es). . 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 of Pathology, [place], [place] DISCUSSION Atypical melanocytic proliferation is not seen, supported by Melan-A immunostain. ADDITIONAL STUDIES Immunohistochemistry Studies: Formalin-fixed, paraffin-embedded tissue [...] and other diagnostic tests. Block ? Antibody ? Result (Positive/Negative) A1 ? Melan-A ? Highlights ?? junctional melanocytes SPECIMEN(S) SUBMITTED A - L Lateral Neck, Shave (1) CLINICAL INFORMATION Atypical pigmented patch. Solar lentigo. R/O MM SPECIMEN PROCESSING A - Labeled/Fixative: Patient demographics, formalin. Quantity/Size: ??Single, 1.3 x 0.8 cm. Tissue Description: Nonoriented, discoid valdivia-white skin shave with an overlying 1.0 x 0.7 cm ill-defined brown, focally granular lesion. Sections/Processing: Inked, serially sectioned and entirely submitted in 2 cassettes as follows: ?A1: ??Tips ?A2: ??Body ??shb 04/30/2020 1:34 PM EST [facility] 04/23/2020 12:0 0 PM EST Jake Galvez MD PATHOLOGY/CYTOLOGY O [facility] [place] [address] documented in this encounter Visit Diagnoses Not on filedocumented in this encounter Care Teams Range Technician Relationship Specialty Start Date End Date Didier Romero MD [address] [place] [address] PCP - General Family Medicine 01/11/17 documented as of this encounter
--- OUTSIDE RECORDS SUMMARY | 2023-12-25 18:49 | XMS_ITS | Encounter Summary ---
[place] [address] Care Team Providers Care Medical Lead Name Role Phone Didier Romero MD Primary Care Provider + Encounter Details Date Type Department Care Team (Late st Contact Info) Description 09/15/2019 1:30 PM EDT TH Visit (TeleHealth) Dermatology at [address] [phone] Jake Galvez MD [address] [facility] [place] [address] AK (actinic keratosis) Social History Tobacco Use [...] Progress Notes * Jake Galvez MD - 09/15/2019 1:30 PM EDT Problem: 1. 4-week telehealth telephone follow-up 5-FU applications to bilateral forearms 2. ??History of malignant melanoma, 1 mm Breslow depth, July 2011 diagnosed in [place], right inferior axillary vault area, with a negative sentinel lymph node biopsy 3. 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 ??History of lichen simplex left medial calf and right arm controled??with clobetasol cream prn Grayson follows today via the [employer] platform. He is now used the 5-FU cream for 4 weeks. He only today sent some photographs that document very good vigorous a good brisk reaction to the cream now. He is getting some desquamation at the treatment site, focused at sites of actinic keratoses. Assessment plan: Actinic keratoses dorsal forearms and arms status post 4 weeks of 5-FU cream applications/triamcinolone cream applications 1. Discontinue 5-FU 2. Continue triamcinolone 0.1% cream applying on a twice daily basis to the treatment area on the dorsal forearms and arms until rash resolves, then discontinue. Dispense 30 g with 1 refill. 3. Asked patient to contact us via photographs and a phone call in 2 weeks to report on his progress. 4. Return to clinic in another year for repeat skin checkup. Cc: Didier Romero MD documented in this encounter Plan of Treatment Upcoming Encounters Date Type Department Care Team (Late st Contact Info) Description 01/03/2024 8:15 AM EDT Office Visit Dermatology at [address] [phone] Jake Galvez MD [address] [facility] [place] [address] documented as of this encounter Visit Diagnoses Diagnosis AK (actinic keratosis) Actinic keratosis documented in this encounter Care Teams Medical Lead Relationship Specialty Start Date End Date Didier Romero MD [address] [place] [address] PCP - General Family Medicine 01/11/17 documented as of this encounter
--- OUTSIDE RECORDS SUMMARY | 2023-12-25 18:49 | XMS_ITS | Encounter Summary ---
Author Organization [facility] [place] [address] Care Team Providers Care Motor Winder Name Role Phone Jose Calvo MD Primary Care Provider Encounter Details Date Type Department Care Team (Late st Contact Info) Description 01/13/2011 Telephone [place] [phone] Humaira Pablo MD [facility] [place] [address] Social History Tobacco Use Types Packs/Day Years [...] 8:15 AM EDT Office Visit Dermatology at [address] [phone] Jake Galvez MD [address] [facility] DERMATOLOGY [place], [place] [phone] documented as of this encounter Visit Diagnoses Not on filedocumented in this encounter Care Teams Motor Winder Relationship Specialty Start Date End Date Jose Calvo MD PCP - General 06/13/10 09/13/15 documented as of this encounter
--- OUTSIDE RECORDS SUMMARY | 2023-12-25 18:49 | XMS_ITS | Encounter Summary ---
Author Organization [facility] Address [address] [place] [address] Care Team Providers Care Electrician Assistant Name Role Phone Unknown, Provider Primary Care Provider Encounter Details Date Type Department Care Team (Late st Contact Info) Description 08/14/2023 Lab Requisition [facility] Pathology & Laboratory Medicine - [facility] [address], [place] [address] Outr Resulting Lab, Provider Social History Tobacco Use Types Packs/Day Years Used Date Smoking Tobacco: Never Assessed Sex and Gender Information Value Date Recorded Sex Assigned at Not on file Gender Identity Not on file Sexual Orientation Not on file documented as of this encounter Plan of Treatment Not on file documented as of this encounter Procedures Procedure Name Priority Date/Time Associated Diagnosis Comments HEPATITIS C AB W REFLEX TO HCV RNA BY PCR Routine 08/13/2023 12:00 EDT documented in this encounter Results * HEPATITIS C AB W REFLEX TO HCV RNA BY PCR (08/13/2023 12:00 EDT) Hep C Antibody Negative Negative 08/14/2023 19:49 EDT [facility] Blood VENOUS BLOOD / Unknown 08/13/2023 12:00 EDT 08/14/2023 18:03 EDT Provider Outr Resulting Lab CHEMISTRY & BLOOD GAS ORDERABLES [facility] [address], [place] [id number] documented in this encounter Visit Diagnoses Not on filedocumented in this encounter Care Teams Electrician Assistant Relationship Specialty Start Date End Date Unknown, Provider, PCP - General 03/13/13 documented as of this encounter
--- OUTSIDE RECORDS SUMMARY | 2023-12-25 18:49 | XMS_ITS | Encounter Summary ---
[place] [address] Care Team Providers Care College Intern Name Role Phone Didier Romero MD Primary Care Provider + Reason for Visit * Reason Comments Skin Check Encounter Details Date Type Department Care Team (Late st Contact Info) Description 01/11/2017 2:15 PM EDT Office Visit Dermatology at [address] [address] Jake Galvez MD [address] [place] [address] [place] [address] History of SCC (squamous cell carcinoma) of [...] Progress Notes * Jake Galvez MD - 01/11/2017 2:15 PM EDT PROBLEM: 1. Yearly skin checkup. 2. History of malignant melanoma, 1 mm Breslow depth, 07/2011, diagnosed in [place], right inferior axillary vault area with a negative sentinel lymph node biopsy. 3. 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 Bruno follows up today with his , Valorie. He has been doing well. He has not noted any new lesions of concern. He is pleased with the healing of the left preauricular cheek site. Physical examination shows excellent healing of the left preauricular cheek site and no evidence of recurrence there, nor at the site of his melanoma excision of the right inferior axillary vault. He is fair-skinned with reddish hair and blue eyes. He has numerous ephelides and freckling of the upper shoulders, chest and back. There is no evidence of any malignant lesions. He has a benign examination of the head and the neck, the chest, the back, hands, arms, forearms, thighs and the calves. A/P: History of SCCA left preauricular cheek. a. No evidence of recurrence. 2. History of malignant melanoma, right inferior axillary vault. a. No evidence of recurrence. b. Patient reassured. c. Encouraged sun avoidance precautions. Return to clinic in another year for repeat check. Cc: Didier Romero MD documented in this encounter Plan of Treatment Upcoming Encounters Date Type Department Care Team (Late st Contact Info) Description 01/03/2024 8:15 AM EDT Office Visit Dermatology at [address] [address] Jake Galvez MD [address] [place] [address] [place] [address] documented as of this encounter Visit Diagnoses Diagnosis History of SCC (squamous cell carcinoma) of skin Personal history of other malignant neoplasm of skin History of malignant melanoma Personal history of malignant melanoma of skin documented in this encounter Care Teams College Intern Relationship Specialty Start Date End Date Didier Romero MD [address] [place] [address] PCP - General Family Medicine 01/11/17 documented as of this encounter
--- OUTSIDE RECORDS SUMMARY | 2023-12-25 18:49 | XMS_ITS | Encounter Summary ---
[place] [address] Care Team Providers Care Steam And Gas Turbines Assembler Name Role Phone Didier Romero MD Primary Care Provider + Encounter Details Date Type Department Care Team (Late st Contact Info) Description 06/01/2020 Telephone [facility] [place] [address] Shelby Banegas Social History Tobacco Use Types [...] encounter Miscellaneous Notes * Telephone Encounter - Cori Alejandro - 06/01/2020 2:16 PM EST Grayson called back. He is uncomfortable going ahead with his procedure without an authorization. Heprefers to wait until he has the authorization and will call back to schedule. * Telephone Encounter - Shelby Banegas - 06/01/2020 10:07 AM EST Update- Patient's pumper hand has advised to proceed with the procedure and advises that even if the W/C uphold the denial post peer to peer, patient should continue with treatment. Patient is aware that he should proceed with procedure. Documentation from Guillermo in the notes section of the auth/certfor this case, documentation being uploaded to patient chart. documented in this encounter Plan of Treatment Upcoming Encounters Date Type Department Care Team (Late st Contact Info) Description 01/03/2024 8:15 AM EDT Office Visit Dermatology at [place] [address] [facility] [place] [address] Jake Galvez MD [address] [facility] [place] [address] documented as of this encounter Visit Diagnoses Not on filedocumented in this encounter Care Teams Steam And Gas Turbines Assembler Relationship Specialty Start Date End Date Didier Romero MD [address] [place] [address] PCP - General Family Medicine 01/11/17 documented as of this encounter
--- OUTSIDE RECORDS SUMMARY | 2023-12-25 18:49 | XMS_ITS | Encounter Summary ---
[place] [address] Care Team Providers Care Drum Cleaner Name Role Phone Didier Romero MD Primary Care Provider + Reason for Visit * Reason Comments Follow-up Encounter Details Date Type Department Care Team (Late st Contact Info) Description 06/05/2017 4:30 PM EST Office Visit Dermatology at [address] [address] Jake Galvez MD [address] [facility] [place] [address] History of SCC (squamous cell carcinoma) of [...] Progress Notes * Jake Galvez MD - 06/05/2017 4:30 PM EST PROBLEM: Ongoing dermatitis, left medial calf and right arm. Bruno follows up with his , Valorie. Unfortunately, he is still itching. He says that he wakes up at night digging and scratching at his ankle at his left medial calf. This did not improve with the fluocinonide cream that I gave him back in January. Physical examination reveals a plaque of lichen simplex on the left medial calf, some 4 x 8 cm in size. He has some mild eczematous dermatitis on the right forearm. These are small patches, not lichenified, more of a wintertime xerotic eczematous dermatitis. The patient is red haired, blue eyed, and very fair skinned. His skin is diffusely xerotic. A/P: Eczematous dermatitis in right forearm and lichen simplex of left medial calf. A. Discontinue fluocinonide cream. B. Instead, begin clobetasol ointment. Apply on a b.i.d. basis to sites until these clear, then simply use CeraVe cream. C. Encouraged patient to minimize soap use and not use Old Spice but rather, a mild soap such as Dove or Ivory. D. Also, do not use washcloth to scrub skin but rather, wash with hands. If possible, try to shower every other day, not every day. Patient will let me know if this is not improving matters for him. cc: Morteza Romero M.D. documented in this encounter Plan of Treatment Upcoming Encounters Date Type Department Care Team (Late st Contact Info) Description 01/03/2024 8:15 AM EDT Office Visit Dermatology at [address] [address] Jake Galvez MD [address] [place] [address] [place] [address] documented as of this encounter Visit Diagnoses Diagnosis History of SCC (squamous cell carcinoma) of skin Personal history of other malignant neoplasm of skin History of malignant melanoma Personal history of malignant melanoma of skin Eczema, unspecified type documented in this encounter Care Teams Drum Cleaner Relationship Specialty Start Date End Date Didier Romero MD [facility] [place] [address] PCP - General Family Medicine 01/11/17 documented as of this encounter
--- OUTSIDE RECORDS SUMMARY | 2023-12-25 18:49 | XMS_ITS | Encounter Summary ---
[place] [address] Care Team Providers Care Lead Care Manager Name Role Phone Didier Romero MD Primary Care Provider + Reason for Visit * Reason Comments Skin Check Encounter Details Date Type Department Care Team (Late st Contact Info) Description 04/23/2020 2:45 PM EST Office Visit Dermatology at [address] [address] Jake Galvez MD [address] [place] [address] [place] [address] [place] (actinic keratosis); History of SCC (squamous [...] Progress Notes * Jake Galvez MD - 04/23/2020 2:45 PM EST Problem: 1. New lesions of concern 2. Status post t 5-FU applications to bilateral forearms 3. ??History of malignant melanoma, 1 mm Breslow depth, July 2011 diagnosed in [place], right inferior axillary vault area, with a negative sentinel lymph node biopsy 4. 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 ??History of lichen simplex left medial calf and right arm controled??with clobetasol cream prn Bruno follows up and is now 60. [facility] He has concerns about some new lesions today. Physical examination reveals pleasant 60-year-old gentleman who has an atypical pigmented 1 cm patch of the left lateral neck. It may represent a solar lentigo but could also include a melanoma in situ. He has actinic's on the left cheek dorsal hands and forearms. He had a wonderful response to the5-FU treatment to his forearms with mostly resolution of the lesions there. Assessment and plan: Actinic keratosis 1. LN2 x2 applied each of 8 sites. 2. Pending results of biopsy below, will recommend annual skin checkup again Rule out malignant melanoma possibly in situ left lateral neck versus solar lentigo 1. Today site was anesthetized and removed with shave biopsy 2. Ointment placed wound care instructions given 3. Wound care instructions was given. 4. We will notify the patient of his biopsy results in 1 week. CC: Didier Romero MD documented in this encounter Plan of Treatment Upcoming Encounters Date Type Department Care Team (Late st Contact Info) Description 01/03/2024 8:15 AM EDT Office Visit Dermatology at [address] [phone] Jake Galvez MD [address] [place] [address] [place] [address] documented as of this encounter Visit Diagnoses Diagnosis [place] (actinic keratosis) Actinic keratosis History of SCC (squamous cell carcinoma) of skin Personal history of other malignant neoplasm of skin History of malignant melanoma Personal history of malignant melanoma of skin documented in this encounter Care Teams Lead Care Manager Relationship Specialty Start Date End Date Didier Romero MD [address] [place] [address] PCP - General Family Medicine 01/11/17 documented as of this encounter
--- OUTSIDE RECORDS SUMMARY | 2023-12-25 18:49 | XMS_ITS | Encounter Summary ---
Author Organization [facility] Address [address] [place] [address] Care Team Providers Care Grain Oilseed Or Pasture Farm Worker Name Role Phone Unavailable Primary Care Provider Unavailabl e Encounter Details Date Type Department Care Team (Latest Contact Info) Description 03/03/2013 13:04 EDT - 03/03/2013 23:59 EDT Hospital Encounter [address] [address] Unknown, Provider, Discharge Disposition: Home or Self Care Social History Tobacco Use Types Packs/Day Years Used Date Smoking Tobacco: Never Assessed Sex and Gender Information Value Date Recorded Sex Assigned at Not on file Gender Identity Not on file Sexual Orientation Not on file documented as of this encounter Discharge Disposition Disposition Code Departure Means Destination Home or Self Jail documented in this encounter Plan of Treatment Not on file documented as of this encounter Visit Diagnoses Not on filedocumented in this encounter
--- OUTSIDE RECORDS SUMMARY | 2023-12-25 18:49 | XMS_ITS | Encounter Summary ---
[place] [address] Care Team Providers Care City Superintendent Of Schools Name Role Phone Didier Romero MD Primary Care Provider + Encounter Details Date Type Department Care Team (Late st Contact Info) Description 09/08/2019 10:30 AM EDT TH Visit (TeleHealth) Dermatology at [address] [address] Jake Galvez MD [address] [facility] [place] [address] [place] (actinic keratosis) Social History Tobacco Use [...] Progress Notes * Jake Galvez MD - 09/08/2019 10:30 AM EDT Problem: 1. ??3-week telehealth telephone follow-up 5-FU applications to bilateral forearms 2. ??History of malignant melanoma, 1 mm Breslow depth, July 2011 diagnosed in [place], right inferior axillary vault area, with a negative sentinel lymph node biopsy 3. 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 ??History of lichen simplex left medial calf and right arm controled??with clobetasol cream prn Today again I did contact Bruno today by telephone to follow-up on his 5-FU therapy. The video foot program was not functional today. The sites of application on the dorsal forearms and arms bilaterally are getting a little bit more sore but not appreciably so. They are no more red than they were at [facility]. He just about out of his creams. It sounds like he is just starting to get a good level ofreaction, that will need to be continued. Assessment plan: Actinic keratoses dorsal forearms widespread and bilateral status post 3 weeks of 5-FU applications 1. Continue 5-FU applications for 1 more week then again contact via telehealth. 2. We will today refill his 5-fluorouracil 5% cream apply twice daily to affected arms forearms as directed by MD dispense 40 g with 0 refills 3. We will also refill his triamcinolone 0.1% cream apply twice daily 30 minutes after each 5-FU application to arms and forearms as directed by . Dispense 15 g with 1 refill. 4. We will plan another telehealth telephone visit in 1 week. At that time will likely be able to discontinue the therapy 5. Discussed with patient the posttreatment expectations of desquamation flaking and significant decrease overall erythema. Cc: Didier Romero MD documented in this encounter Plan of Treatment Upcoming Encounters Date Type Department Care Team (Late st Contact Info) Description 01/03/2024 8:15 AM EDT Office Visit Dermatology at [place] [address] [place] [address] Jake Galvez MD [address] [facility] [place] [address] documented as of this encounter Visit Diagnoses Diagnosis [place] (actinic keratosis) Actinic keratosis documented in this encounter Care Teams City Superintendent Of Schools Relationship Specialty Start Date End Date Didier Romero MD [address] [place] [address] PCP - General Family Medicine 01/11/17 documented as of this encounter
--- OUTSIDE RECORDS SUMMARY | 2023-12-25 18:49 | XMS_ITS | Encounter Summary ---
[place] [address] Care Team Providers Care Youth Court Judge Name Role Phone Didier Romero MD Primary Care Provider + Reason for Visit * Reason Comments Follow-up Skin Check Encounter Details Date Type Department Care Team (Late st Contact Info) Description 01/22/2018 2:30 PM EDT Office Visit Dermatology at [address] [phone] Jake Galvez MD [address] [place] [address] DERMATOLOGY [place], [place] [id number] History of SCC (squamous cell carcinoma) of [...] Progress Notes * Jake Galvez MD - 01/22/2018 2:30 PM EDT Problem: 1. Yearly skin checkup 2. History of malignant melanoma, 1 mm Breslow depth, July 2011 diagnosed in [place], rightinferior axillary vault area, with a negative sentinel lymph node biopsy 3. 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 History of lichen simplex left medial calf and right arm controled with clobetasol cream prn Bruno follows today with his Arlen. He has been doing well. He has not noted any new lesions ofconcern. Physical examination reveals no active of lichen simplex. Examination of the scalp the face the ears the neck the chest the back the hands informs thighs and the calves is benign. He has numerous ephilids and freckling of the upper shoulders. He is no evidence of any malignant lesions. The above-noted malignancy treatment sites remain well-healed without evidence of recurrence. There is no evidence of recurrent pigmentation at the melanoma excision site Assessment and plan: History of malignant melanoma right inferior axillary vault 1. No evidence of recurrence 2. Patient reassured 3. Continue sun avoidance precautions. 4. Return to clinic in the year for repeat check History of SCCA left preauricular cheek 1. Nose recurrence 2. Patient reassured Lichen simplex 1. Will call in refills for his clobetasol ointment to apply twice daily to affected pruritic sitesuntil they clear. Dispense 30 g with 3 refills will call into his right aid in [place]. 2. Continue to avoid fragranced products such as old spice instead use mild soap such as Dove or Ivory. 3. Then simply use CeraVe cream to emollient skin prick prevent recurrence of dermatitis Cc: Didier Romero MD documented in this encounter Plan of Treatment Upcoming Encounters Date Type Department Care Team (Late st Contact Info) Description 01/03/2024 8:15 AM EDT Office Visit Dermatology at [place] [address] [place] [address] Jake Galvez MD [address] [facility] [place] [address] documented as of this encounter Visit Diagnoses Diagnosis History of SCC (squamous cell carcinoma) of skin Personal history of other malignant neoplasm of skin History of malignant melanoma Personal history of malignant melanoma of skin Eczema, unspecified type documented in this encounter Care Teams Youth Court Judge Relationship Specialty Start Date End Date Didier Romero MD [address] [place] [address] PCP - General Family Medicine 01/11/17 documented as of this encounter
--- OUTSIDE RECORDS SUMMARY | 2023-12-25 18:49 | XMS_ITS | Encounter Summary ---
[place] [address] Care Team Providers Care Drying Room Supervisor Name Role Phone Didier Romero MD Primary Care Provider + Reason for Visit * Reason Comments Annual Exam Encounter Details Date Type Department Care Team (Late st Contact Info) Description 01/23/2019 1:45 PM EDT Office Visit Dermatology at [address] [address] Jake Galvez MD [address] [place] [address] [place] [address] History of SCC (squamous cell carcinoma) of [...] Progress Notes * Jake Galvez MD - 01/23/2019 1:45 PM EDT Problem: 1. Yearly skin checkup 2. History of malignant melanoma, 1 mm Breslow depth, July 2011 diagnosed in [place], rightinferior axillary vault area, with a negative sentinel lymph node biopsy 3. 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 History of lichen simplex left medial calf and right arm controled with clobetasol cream prn Bruno follows today with his Arlen. He has been been doing well. Is not noted any new lesions of concern. Physical examination reveals a benign examination of the closely shaved scalp the face the ears theneck the chest the back the hands the arms of forearms thighs and the calves. There is no evidence of any malignant lesions today. He continues to have a well-healed melanoma excision site below his right inferior axillary vault area. There is no cervical or axillary adenopathy. He has no active areas of lichen simplex Assessment and plan: History of malignant melanoma right inferior axillary vaults 1. No evidence of recurrence 2. Patient reassured 3. Continue sun avoidance precautions 4. Continue our once yearly skin checkups. History of lichen simplex 1. Will call in refills for his clobetasol ointment should he develop new areas of involvement CC: Didier Romero MD documented in this encounter Plan of Treatment Upcoming Encounters Date Type Department Care Team (Late st Contact Info) Description 01/03/2024 8:15 AM EDT Office Visit Dermatology at [address] [phone] Jake Galvez MD [address] [facility] [place] [address] documented as of this encounter Visit Diagnoses Diagnosis History of SCC (squamous cell carcinoma) of skin Personal history of other malignant neoplasm of skin History of malignant melanoma Personal history of malignant melanoma of skin Eczema, unspecified type documented in this encounter Care Teams Drying Room Supervisor Relationship Specialty Start Date End Date Didier Romero MD [address] [place] [address] PCP - General Family Medicine 01/11/17 documented as of this encounter
--- OUTSIDE RECORDS SUMMARY | 2023-12-25 18:49 | XMS_ITS | Encounter Summary ---
Author Organization [facility] Address [address] [place] [address] Care Team Providers Care Cushion Stuffer Name Role Phone Unknown, Provider Primary Care Provider Encounter Details Date Type Department Care Team (Late st Contact Info) Description 2021 Lab Requisition [facility] Pathology & Laboratory Medicine - [facility] [address] [place] [address] Outr Resulting Lab, Provider Social History Tobacco [...] Procedure Name Priority Date/Time Associated Diagnosis Comments TESTOSTERONE, TOTAL AND FREE Routine 2021 10:22 EDT documented in this encounter Results * TESTOSTERONE, TOTAL AND FREE (2021 10:22 EDT) Testosterone 447 229 - 902 ng/dL 01/03/2021 9:02 EDT [facility] Comment:The results of this assay can be falsley elevated due to the consumption of Biotin. Sex Hormone Bnd Glob 25.5 21.6 - 113.1 nmol/L 01/03/2021 9:02 EDT [facility] Comment:The results of this assay can be falsely lowered due to the consumption of Biotin. Free Testosterone 10.6 6.1 - 12.4 ng/dL 01/03/2021 9:02 [facility] Blood VENOUS BLOOD / Unknown 2021 10:22 EDT 2021 15:55 EDT Narrative [facility] - 01/03/2021 9:02 EDT This test is not recommended in patients with plasma protein abnormalities. Provider Outr Resulting Lab CHEMISTRY & BLOOD GAS ORDERABLES [facility] [address] [place] [address] documented in this encounter Visit Diagnoses Not on filedocumented in this encounter Care Teams Cushion Stuffer Relationship Specialty Start Date End Date Unknown, Provider, PCP - General 03/13/13 documented as of this encounter
--- OUTSIDE RECORDS SUMMARY | 2023-12-25 18:49 | XMS_ITS | Encounter Summary ---
Author Organization [facility] [place] [address] Care Team Providers Care Electric Deicer Inspector Name Role Phone Jose Calvo MD Primary Care Provider [phone] Reason for Referral * Occupational Therapy (Routine) - Complete - Patient Will Schedule External Appt Specialty Diagnoses / Procedures Referred By Everett t Referred To Contact Occupational Therapy Diagnoses Wrist pain Lisandra Le PA [facility] [place] [address] Referral ID Status Reason Start Date Expiration Date Visits Requested Visits Authorized [id number] Complete - Patient Will Schedule External Appt Evaluate and Treat 09/23/2012 03/22/2013 1 1 Reason for Visit * Reason Comments Right Hand Pain sp r ctr dos 10/20/19 06 [facility] Encounter Details Date Type Department Care Team (Late st Contact Info) Description 09/23/2012 12:45 PM EDT Office [place] [address] Dandy Mitchell MD [facility] [place] [address] Lisandra eL PA [facility] [place] [address] Wrist pain (Primary Dx) Discharge Disposition: Home Social History Tobacco Use [...] Sign Reading Time Taken Comments Blood Pressure 131/90 09/23/2012 12:39 PM EDT Pulse 67 09/23/2012 12:39 PM EDT Temperature - - Respiratory Rate - - Oxygen Saturation - - Inhaled Oxygen Concentration - - Weight 86.2 kg (190 lb) 09/23/2012 12:39 PM EDT Height 176.5 cm (5' 9.5) 09/23/2012 12:39 PM ED T Body Mass Index 27.66 09/23/2012 12:39 PM EDT documented in this encounter Progress Notes * Lisandra Le PA - 09/23/2012 1:58 PM EDT PATIENT NAME: Grayson Dodd III AGE: 52 y.o. MR#: [id number] DATE OF VISIT: 09/23/2012 DATE OF INJURY/ONSET: July 2012 STAFF: Dr. Mitchell CHIEF COMPLAINT: Right radial wrist pain HISTORY OF PRESENT ILLNESS: Mr. Dodd is a right hand dominant 52 y.o. male who comes into clinic today for evaluation of the right wrist. He was referred to [facility] Ortho by JOSE CALVO MD. The patient states that he has been having worsening radial sided wrist pain for the past two months. He denies having any specific trauma. He underwent right carpal tunnel release, FCR release, and palmarfasciectomy for the ring and small fingers in October 2007 at [facility] in [place]. He states that he had excellent symptom relief following this surgery and has only just recently noticed a return of his wrist discomfort. He has not had any return of his Dupuytren's contracture in his ulnar digits. He also has not had any persistence numbness or tingling into his mediannerve distribution. He has noticed some discomfort over the volar radial aspect of his wrist and does notice some swelling which fluctuates depending on activity. He also has pain at the base of his thumb which has made it difficult for him to grasp objects. He has not had any recent treatment for his new symptoms. He states that he did attempt wearing a wrist brace, but he states that direct pressure over the volar aspect of his wrist increases his discomfort Medications and Allergies were reviewed in eD-H PAST MEDICAL HX: Past Medical History Diagnosis Date ??? Hx of hypogonadism ??? Type 2 diabetes mellitus ??? Gout ??? Hypertension PAST SURGICAL HX: Past Surgical History Procedure Date ??? Hernia repair ??? Spinal fusion ??? Rotator cuff repair left shoulder x 2 ??? 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 Smoking status: Never Smoker ??? Smokeless tobacco: Never Used ??? Alcohol Use: Yes 4-5 cans of beer a day ??? Drug Use: No ??? Sexually Active: Not on file ROS: Constitutional: neg HEENT: neg Cardiac: neg Pulmonary: neg GI/: neg Endocrine: neg Skin: neg Musculoskeletal: see HPI PHYSICAL EXAM: Mr. Dodd is a 52 y.o. male who is alert and oriented. He appears in no acute discomfort and is resting comfortably in the exam room. Inspection: Well-healed prior surgical incisions. No erythema or ecchymosis over the wrist and hands. No residual flexion contracture of the ulnar digits. There is a focal area of swelling over the volar radial aspect of the location of the FCR proximal to his incisions. Palpation: Nontender over the palm. No palpable locking or triggering of the digits. Tender at the base of the thumb. Also tender over the FCR tendon. There does not appear to be a palpable cystic mass. ROM/Strength: Wrist range of motion is slightly limited in flexion and extension on the right. Fullthumb and finger ROM with intact FDS, FDP, EPL, FPL bilaterally. Power and pinch automotive general sales manager are equal bilaterally, although painful on the right. No evidence of intrinsic hand weakness. Orthopedic testing: No evidence of carpal or DRUJ instability. Negative Rohini's. Negative Tinel's at the carpal tunnel, but does cause some discomfort in the wrist. Negative Phalen's and Durkencompression. Normal Vick test. Negative table top test. Neurovascular: Normal motor function of the radial, median, and ulnar nerves. Normal sensation along radial, median, and ulnar nerve distributions. Good hand perfusion. RADIOLOGICAL STUDIES: X-rays show no acute fracture or dislocation. There is advanced arthritic change at the CMC and STT joints. ASSESSMENT: Right wrist pantrapezial arthritis, FCR inflammation PLAN: Mr. Dodd and I discussed his radiologic findings and physical exam findings. I reviewed thex-rays with the patient today. He had an excellent result following his surgery, but has since developed increasing wrist pain. We discussed that he does have arthritis at the base of the thumb whichis a common place for arthritis in the wrist. We discussed treatment options including hand therapy, splinting, topical analgesics, cortisone injection, and possible surgical basal joint arthroplasty. We also discussed that he may be having some increased discomfort over his FCR or may be developing an occult ganglion cyst in this area. It does not appear that he has had a return of his Dupuytren's disease or carpal tunnel syndrome. He was given a referral for hand therapy today to see if he can improve his symptoms conservatively. He will return for follow up in 4-6 weeks if he continues to be symptomatic. We will plan on checking an MRI of the wrist to further evaluate for structural pathology prior to that visit. If his symptoms have diminished, he may cancel his followup appointment. The patient understands to contact us if they have any other questions or concerns. documented in this encounter Plan of Treatment Upcoming Encounters Date Type Department Care Team (Late st Contact Info) Description 01/03/2024 8:15 AM EDT Office Visit Dermatology at [place] [address] [facility] [place] [phone] Jake Galvez MD [address] [facility] [place] [address] Scheduled Referrals Name Type Priority Associated Diagnoses Order Schedule Referral to Occupational Therapy Outpatient Referral Routine Wrist pain Ordered: 09/23/2012 documented as of this encounter Visit Diagnoses Diagnosis Wrist pain- Primary Pain in joint, forearm documented in this encounter Care Teams Electric Deicer Inspector Relationship Specialty Start Date End Date Jose Calvo MD PCP - General 06/13/10 09/13/15 documented as of this encounter
--- OUTSIDE RECORDS SUMMARY | 2023-12-25 18:49 | XMS_ITS | Encounter Summary ---
Author Organization [facility] [place] [address] Care Team Providers Care Supervisor Properties Name Role Phone Didier Romero MD Primary Care Provider + Encounter Details Date Type Department Care Team (Late st Contact Info) Description 06/01/2020 Telephone [facility] at [facility] [phone] Sara Gusman [facility] [place] [address] Social History Tobacco Use Types Packs/Day Years [...] encounter Miscellaneous Notes * Telephone Encounter - Sara Gusman MSW - 06/01/2020 8:36 AM EST OFFICE OF CARE MANAGEMENT CCM Follow up call to LESETR NURSE RELAY ASSOCIATE FROM [facility] [phone] whose voicemail indicates she is out until 06/07/20. Though injection re scheduled spoke with colleague who is unclear what they are asking for in terms of peer to peer for this wc claim. She will request casting machine adjuster Lilia O'Brienor ncm Liliana to call back and clarify and assist with the the process for requesting approval. Update to patient and healthcare team pending re-contact. documented in this encounter Plan of Treatment Upcoming Encounters Date Type Department Care Team (Late st Contact Info) Description 01/03/2024 8:15 AM EDT Office Visit Dermatology at [place] [address] [place] [address] Jake Galvez MD [address] [facility] [place] [address] documented as of this encounter Visit Diagnoses Not on filedocumented in this encounter Care Teams Supervisor Properties Relationship Specialty Start Date End Date Didier Romero MD [address] [place] [address] PCP - General Family Medicine 01/11/17 documented as of this encounter
--- OUTSIDE RECORDS SUMMARY | 2023-12-25 18:49 | XMS_ITS | Encounter Summary ---
[place] [address] Care Team Providers Care Marketing Services Vice President Name Role Phone Lisa Jackson MD Primary Care Provider + [phone] Encounter Details Date Type Department Care Team (Late st Contact Info) Description 11/09/2015 8:00 AM EDT Office Visit Dermatology at [address] [phone] Jake Galvez MD [address] [facility] [place] [address] Visit for suture removal Social History Tobacco [...] Progress Notes * Jake Galvez MD - 11/09/2015 8:15 AM EDT Problem: Followup incisional biopsy results. Bruno follows up. He has had no problems postoperatively. 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 He is here today again with his , Valorie. Physical examination reveals a pleasant 55-year-old Gentleman who has excellent healing of the left preauricular cheek excision site. There is no erythema and no induration. No sign of infection. The biopsy results came back showing scar and no evidence of residual tumor. Assessment and Plan: SCCA, left preauricular cheek. a. Sutures removed. b. May DC wound instructions. c. Recommended I see the patient on a yearly basis for repeat skin checks, sooner for lesions of concern. d. Stressed sun avoidance precautions. Return to the clinic in one year. COPY: Lisa Jackson M.D. documented in this encounter Plan of Treatment Upcoming Encounters Date Type Department Care Team (Late st Contact Info) Description 01/03/2024 8:15 AM EDT Office Visit Dermatology at [place] [address] [place] [phone] Jake Galvez MD [address] [facility] [place] [address] documented as of this encounter Visit Diagnoses Diagnosis Visit for suture removal Encounter for removal of sutures documented in this encounter Care Teams Marketing Services Vice President Relationship Specialty Start Date End Date Lisa Jackson MD [address] [place] [address] PCP - General Oncology 09/14/15 01/10/17 documented as of this encounter
--- OUTSIDE RECORDS SUMMARY | 2023-12-25 18:49 | XMS_ITS | Encounter Summary ---
Author Organization [facility] Address [address] [place] [address] Care Team Providers Care Records Specialist Name Role Phone Unknown, Provider Primary Care Provider Encounter Details Date Type Department Care Team (Late st Contact Info) Description 12/13/2019 Lab Requisition [facility] Pathology & Laboratory Medicine - [facility] [address] [place] [address] Outr Resulting Lab, Provider Social History Tobacco [...] Procedure Name Priority Date/Time Associated Diagnosis Comments TESTOSTERONE Routine 12/13/2019 8:04 EDT documented in this encounter Results * TESTOSTERONE (12/13/2019 8:04 EDT) Testosterone 518 229 - 902 ng/dL 12/15/2019 11:20 EDT [facility] Blood VENOUS BLOOD / Unknown 12/13/2019 8:04 EDT 12/14/2019 18:19 EDT Narrative [facility] - 12/15/2019 11:20 EDT The results of this assay can be falsley elevated due to the consumption of Biotin. Provider Outr Resulting Lab CHEMISTRY & BLOOD GAS ORDERABLES [facility] [address] [place] [address] documented in this encounter Visit Diagnoses Not on filedocumented in this encounter Care Teams Records Specialist Relationship Specialty Start Date End Date Unknown, Provider, PCP - General 03/13/13 documented as of this encounter
--- OUTSIDE RECORDS SUMMARY | 2023-12-25 18:49 | XMS_ITS | Encounter Summary ---
[place] [address] Care Team Providers Care Felt Pad Cutter Name Role Phone Didier Romero MD Primary Care Provider + Encounter Details Date Type Department Care Team (Late st Contact Info) Description 05/18/2020 Notes Only [facility] [place] [phone] Shelby Banegas Social History Tobacco Use Types [...] as of this encounter Progress Notes * Shelby Banegas - 05/18/2020 10:46 AM EST [facility] Temporary Anticoagulant Hold Initial Request Patient: Grayson Dodd III [id number] Request for the above named patient to temporarily stop Aspirin for 6 days prior to requested cervical medial branch block and Radiofrequency Ablation injection/procedure has been faxed to: Dr. Romero's office. Fax number: [phone] Fax confirmation that request received at the above named doctor's office: 05/18/20 (date stamp on fax confirmation) 11:19am (time stamp on fax confirmation) Paper documentation in [facility] Scheduling Desk. Shelby M Makenzie documented in this encounter Plan of Treatment Upcoming Encounters Date Type Department Care Team (Late st Contact Info) Description 01/03/2024 8:15 AM EDT Office Visit Dermatology at [place] [address] [facility] [place] [address] Jake Galvez MD [address] [facility] [place] [address] documented as of this encounter Visit Diagnoses Not on filedocumented in this encounter Care Teams Felt Pad Cutter Relationship Specialty Start Date End Date Didier Romero MD [address] [place] [address] PCP - General Family Medicine 01/11/17 documented as of this encounter
--- OUTSIDE RECORDS SUMMARY | 2023-12-25 18:49 | XMS_ITS | Encounter Summary ---
Author Organization [facility] [place] [address] Care Team Providers Care Lane Attendant Name Role Phone Didier Romero MD Primary Care Provider + Encounter Details Date Type Department Care Team (Late st Contact Info) Description 05/20/2020 Notes Only [facility] [place] [phone] Gillian Courtney Social History Tobacco Use Types [...] as of this encounter Progress Notes * Gillian Courtney - 05/20/2020 9:53 AM EST [facility] Temporary Anticoagulant Hold Documentation Patient: Grayson Dueñas Yousif GARCIA [id number] Romero to temporarily stop Aspirin for 6 days prior to requested cervical medial branch block X2/RFA injection/procedure. See signed permission received from prescriber scanned into electronic record. Permission received for multiple procedures over 1 year: no PT/INR ordered: no Gillian Courtney documented in this encounter Plan of Treatment Upcoming Encounters Date Type Department Care Team (Late st Contact Info) Description 01/03/2024 8:15 AM EDT Office Visit Dermatology at [place] [address] [facility] [place] [address] Jake Galvez MD [address] [facility] [place] [address] documented as of this encounter Visit Diagnoses Not on filedocumented in this encounter Care Teams Lane Attendant Relationship Specialty Start Date End Date Didier Romero MD [address] [place] [address] PCP - General Family Medicine 01/11/17 documented as of this encounter
--- OUTSIDE RECORDS SUMMARY | 2023-12-25 18:49 | XMS_ITS | Encounter Summary ---
[place] [address] Care Team Providers Care Funeral Director'S Assistant Name Role Phone Lisa Jackson MD Primary Care Provider [phone] Encounter Details Date Type Department Care Team (Late st Contact Info) Description 11/02/2015 2:15 PM EDT Procedure visit Dermatology at [address] [phone] Jake Galvez MD [address] [facility] [place] [address] History of SCC (squamous cell carcinoma) of skin; Viral warts, unspecified type Social History Tobacco Use Types [...] Progress Notes * Jake Galvez MD - 11/02/2015 3:06 PM EDT Clinical Impression: Biopsy-proven SCCA, left preauricular cheek, now for excision. Site: Left preauricular cheek. Size: 1.5 cm in diameter. Deep Suture: 4-0 Vicryl. Surface Suture: 5-0 Ethilon. Followup: In one week for suture removal and biopsy results. Indications for surgery, possible adverse outcomes, and activity restrictions discussed. Informed verbal consent was obtained. The skin surface was prepared with 4% chlorhexidine and draped in the usual sterile manner. Local anesthesia with 1% lidocaine, 1:100,000 epinephrine, and 0.1 mEq/mL of bicarbonate. Using a #15 blade and 3-mm margins, an elliptical excision was carried out around the 1-cm lesion for a 1.5-cm actual excision size. Undermining performed peripherally. Hemostasis with electrodessication. Layered closure performed with specimen to Pathology. Wound dressed, wound care reviewed. End length of suture line was 3.5 cm. Follow up in one week for suture removal and biopsy results. Note: A verruca vulgaris on the left distal index finger laterally was treated with LN2 times three today at patient request. The patient was accompanied today by his , Valorie, who was present during the surgery. documented in this encounter Plan of Treatment Upcoming Encounters Date Type Department Care Team (Late st Contact Info) Description 01/03/2024 8:15 AM EDT Office Visit Dermatology at [address] [address] Jake Galvez MD [address] [place] [address] [place] [address] documented as of this encounter Visit Diagnoses Diagnosis History of SCC (squamous cell carcinoma) of skin Personal history of other malignant neoplasm of skin Viral warts, unspecified type documented in this encounter Care Teams Funeral Director'S Assistant Relationship Specialty Start Date End Date Lisa Jackson MD [address] [place] [address] PCP - General Oncology 09/14/15 01/10/17 documented as of this encounter
--- OUTSIDE RECORDS SUMMARY | 2023-12-25 18:49 | XMS_ITS | Encounter Summary ---
[place] [address] Care Team Providers Care Knot Cutter Name Role Phone Didier Romero MD Primary Care Provider + Encounter Details Date Type Department Care Team (Late st Contact Info) Description 01/11/2017 Refill Dermatology at [address] [address] Jeana Valentin LPN Social History [...] 8:15 AM EDT Office Visit Dermatology at [address] [address] Jake Galvez MD [address] [place] [address] DERMATOLOGY [place], [place] [phone] documented as of this encounter Visit Diagnoses Not on filedocumented in this encounter Care Teams Knot Cutter Relationship Specialty Start Date End Date Didier Romero MD [address] [place] [address] PCP - General Family Medicine 01/11/17 documented as of this encounter
--- OUTSIDE RECORDS SUMMARY | 2023-12-25 18:49 | XMS_ITS | Encounter Summary ---
Author Organization [facility] [place] [address] Care Team Providers Care Hot Metal Mixer Operator Name Role Phone Didier Romero MD Primary Care Provider + Encounter Details Date Type Department Care Team (Late st Contact Info) Description 04/26/2020 External [place] [phone] Provider, Scanning Social History Tobacco Use Types [...] AM EDT Office Visit Dermatology at [address] [facility] [place] [phone] Jake Galvez MD [address] [facility] [place] [address] documented as of this encounter Procedures Procedure Name Priority Date/Time Associated Diagnosis Comments SURGICAL PATHOLOGY SCAN Routine 04/26/2020 documented in this encounter Results * Scan Doc: Surgical Pathology (04/26/2020) Historical Provider MD KABA MGR SCAN EX T ORDR/RSLT documented in this encounter Visit Diagnoses Not on filedocumented in this encounter Care Teams Hot Metal Mixer Operator Relationship Specialty Start Date End Date Didier Romero [place] [address] PCP - General Family Medicine 01/11/17 documented as of this encounter
--- OUTSIDE RECORDS SUMMARY | 2023-12-25 18:49 | XMS_ITS | Encounter Summary ---
Author Organization [facility] [place] [address] Care Team Providers Care Abrasive Wheel Molder Name Role Phone Didier Romero MD Primary Care Provider + Encounter Details Date Type Department Care Team (Late st Contact Info) Description 01/08/2020 Ancillary Procedure [place] [address] Geoff Lanier MD [facility] [place] [address] Social History Tobacco Use Types Packs/Day Years [...] 8:15 AM EDT Office Visit Dermatology at [place] [address] [facility] [place] [phone] Jake Galvez MD [address] [facility] [place] [address] documented as of this encounter Procedures Procedure Name Priority Date/Time Associated Diagnosis Comments FILM LIBRARY STORAGE ONLY DX SPINE Routine 01/08/2020 12:00 AM EDT documented in this encounter Results * Film Library- Storage Only DX Spine (01/08/2020 12:00 AM EDT) Narrative KIMI - 04/12/2020 9:25 PM EST This exam is auto-finalizing. It's purpose is for storage only. Geoff Lanier MD IMG FILM LIBRARY ORD ERABLES Performing Organization Address City/State/[facility] Co de Phone Number [place], [place] documented in this encounter Visit Diagnoses Not on filedocumented in this encounter Care Teams Abrasive Wheel Molder Relationship Specialty Start Date End Date Didier Romero MD [address] [place] [address] PCP - General Family Medicine 01/11/17 documented as of this encounter
--- OUTSIDE RECORDS SUMMARY | 2023-12-25 18:49 | XMS_ITS | Encounter Summary ---
[place] [address] Care Team Providers Care Kaiako Kura Tuarua Name Role Phone Lisa [place] MD Primary Care Provider + [phone] Reason for Visit * Reason Comments Skin Check Encounter Details Date Type Department Care Team (Late st Contact Info) Description 09/14/2015 2:00 PM EDT Office Visit Dermatology at [address] [address] Jake Galvez MD [address] [place] [address] DERMATOLOGY [place], [place] [id number] History of malignant melanoma Social History Tobacco [...] Progress Notes * Jake Galvez MD - 09/14/2015 2:35 PM EDT Problem: 1. Repeat skin checkup. 2. History of malignant melanoma, 1 mm Breslow depth, July 2011, diagnosed in [place], right inferior axillary vault area with negative sentinel lymph node biopsy. Bruno follows accompanied by his , Arlen. I have not seen him since June 2010, but he was recently seen by Dr. Jackson, who refers him back to see me. He reminds me he has had a fair amount of sun over the years. 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 Physical examination reveals a pleasant now 55-year-old gentleman who is very fair skinned with blue eyes and fair smith hair, who has a well-healed melanoma excision site in the right inferior axillary vault. He has no right axillary vault adenopathy. He has a benign examination of the head and the neck, the chest, the back, hands, arms, forearms, thighs, and calves. There is no evidence of any pigmented lesion of concern. Also the feet, the soles of the feet, to web spaces, and the buttocks are benign. He does, however, have a sclerotic plaque about 1 cm in diameter on the left preauricular cheek concerning for possible sclerosing BCCA. Assessment and Plan: 1. History of malignant melanoma. a. Benign examination today. b. Continue sun avoidance precautions. c. Recommend that we resume once yearly skin checkups. Return to clinic reminder here one year. 2. Rule out sclerotic BCCA, left preauricular cheek. a. Today shave biopsy obtained from this site. b. Wound care instructions and supplies given. c. We will notify the patient of biopsy results in one week. Return to clinic reminder one year. COPY: Lisa [place] M.D. documented in this encounter Plan of Treatment Upcoming Encounters Date Type Department Care Team (Late st Contact Info) Description 01/03/2024 8:15 AM EDT Office Visit Dermatology at [place] [address] [place] [address] Jake Galvez MD [address] [facility] [place] [address] documented as of this encounter Visit Diagnoses Diagnosis History of malignant melanoma Personal history of malignant melanoma of skin documented in this encounter Care Teams Kaiako Kura Tuarua Relationship Specialty Start Date End Date Lisa [place] MD [address] [place] [address] PCP - General Oncology 09/14/15 01/10/17 documented as of this encounter
--- OUTSIDE RECORDS SUMMARY | 2023-12-25 18:49 | XMS_ITS | Encounter Summary ---
[place] [address] Care Team Providers Care Project Specialist Name Role Phone Didire Romero MD Primary Care Provider + Encounter Details Date Type Department Care Team (Late st Contact Info) Description 09/02/2019 1:45 PM EDT TH Visit (TeleHealth) Dermatology at [address] [address] Jake Galvez MD [address] [facility] [place] [address] History of SCC (squamous cell carcinoma) of [...] Progress Notes * Jake Galvez MD - 09/02/2019 1:45 PM EDT Problem: 1. ??2-week follow-up 5-FU applications to bilateral forearms 2. ??History of malignant melanoma, 1 mm Breslow depth, July 2011 diagnosed in [place], right inferior axillary vault area, with a negative sentinel lymph node biopsy 3. 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 ??History of lichen simplex left medial calf and right arm controled??with clobetasol cream prn I see Bruno in a tele-dermatology visit today for a 2-week visit. He has been using the 5-FU cream twice daily and has not noticed any change in the redness. His forearms are not sore. He has not notedany burning or stinging or discomfort. On physical examination, the patient's video quality is limited, picture quality is not good, erythematous patches are still seen seen widely over the dorsal forearms. They do not appear to be any different, not heightened after 2 weeks of 5-FU applications. Assessment and plan: Actinic keratoses of the dorsal forearms, widespread, and bilateral status post 2 weeks of 5-FU application 1. Continue 5-FU applications twice daily for 1 more week, then we will contact again via tele-dermatology 2. Continue the triamcinolone cream applying it twice daily vitamins after each 5-FU application. 3. Again discussed with patient the expected erythema/irritant reaction that will occur with 5-FU use. 4. Patient asked what we can do to treat his actinic's if this does not work, and responsibly response we decided to treat longer. 5. Would not would recommend modalities such as liquid nitrogen given the wide field of damage. Cc: Didier Romero MD documented in this encounter Plan of Treatment Upcoming Encounters Date Type Department Care Team (Late st Contact Info) Description 01/03/2024 8:15 AM EDT Office Visit Dermatology at [place] [address] [place] [address] Jake Galvez MD [address] [facility] [place] [address] documented as of this encounter Visit Diagnoses Diagnosis History of SCC (squamous cell carcinoma) of skin Personal history of other malignant neoplasm of skin History of malignant melanoma Personal history of malignant melanoma of skin AK (actinic keratosis) Actinic keratosis documented in this encounter Care Teams Project Specialist Relationship Specialty Start Date End Date Didier Romero MD [address] [place] [address] PCP - General Family Medicine 01/11/17 documented as of this encounter
--- OUTSIDE RECORDS SUMMARY | 2023-12-25 18:49 | XMS_ITS | Encounter Summary ---
Author Organization [facility], Located [facility] [place] [address] Care Team Providers Care Engraver Hand Soft Metals Name Role Phone Jose Calvo MD Primary Care Provider [phone] Encounter Details Date Type Department Care Team (Late st Contact Info) Description 08/08/2012 Orders [place] [address] Dandy Mitchell MD [facility] DR [place] [address] Hand pain (Primary Dx) Social History Tobacco Use Types [...] AM EDT Office Visit Dermatology at [address] [place] [address] Jake Galvez MD [address] [facility] [place] [address] documented as of this encounter Results * XR hand diagnostic minimum 3 views (09/23/2012 11:50 AM EDT) Anatomical Region Laterality Modality Hand N/A Radiographic Sofie ging 09/23/2012 11:5 0 AM EDT Narrative 09/23/2012 4:39 PM EDT Examination DIAG HAND MIN 3 VIEWS/RIGHT Clinical History RT HAND PAIN Comparison None Technique 3 views of the right hand. Findings The bones of the digits appear normally mineralized and aligned, without focal bony lesion, fracture, or subluxation. ??Minimal degenerative changes at the interphalangeal joints and the MCP joint of the thumb. ??Grossly unremarkable appearance of the other metacarpophalangeal joints. ??Largely unremarkable appearance of the wrist, except for the basal (1st carpometacarpal) and triscaphe (bzvcpvwsz-kgrvcbnnm-uqmtiwey) joints. ??Here there is significant joint space narrowing, sclerosis of the opposing articular surfaces, and prominent productive changes, the latter particularly along the margins of the trapezium. ??Question mild subchondral cystic changes of the scaphoid. ??No erosive changes or soft tissue calcifications are appreciated. 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 Procedure Note Meghann Ribeiro MD - 09/23/2012 Examination DIAG HAND MIN 3 VIEWS/RIGHT Clinical History RT HAND PAIN Comparison None Technique 3 views of the right hand. Findings The bones of the digits appear normally mineralized and aligned, withoutfocal bony lesion, fracture, or subluxation. Minimal degenerative changes atthe interphalangeal joints and the MCP joint of the thumb. Grosslyunremarkable appearance of the other metacarpophalangeal joints. Largely unremarkable appearance of the wrist, except for the basal (1st carpometacarpal) and triscaphe (vxjejahdz-dnfhypxhb-mteqgjvm) joints. Here there issignificant joint space narrowing, sclerosis of the opposing articular surfaces, and prominent productive changes, the latter particularly along the margins ofthe trapezium. Question mild subchondral cystic changes of the scaphoid. No erosive changes or soft tissue calcifications are appreciated. 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 Dandy Mitchell MD IMG DX ORDERABLES documented in this encounter Visit Diagnoses Diagnosis Hand pain- Primary Pain in limb Hand pain Pain in limb documented in this encounter Care Teams Engraver Hand Soft Metals Relationship Specialty Start Date End Date Jose Calvo MD PCP - General 06/13/10 09/13/15 documented as of this encounter
--- OUTSIDE RECORDS SUMMARY | 2023-12-25 18:49 | XMS_ITS | Encounter Summary ---
[place] [address] Care Team Providers Care Catheter Builder Name Role Phone Jose Calvo MD Primary Care Provider Encounter Details Date Type Department Care Team (Late st Contact Info) Description 06/13/2010 1:15 PM EST Office Visit Dermatology [address] [place] [address] [address] [place] [address] Jake Galvez MD [address] [place] [address] [place] [address] Social History Tobacco Use Types Packs/Day Years [...] 8:15 AM EDT Office Visit Dermatology at [address] [address] Jake Galvez MD [address] [facility] [place] [address] documented as of this encounter Visit Diagnoses Not on filedocumented in this encounter Care Teams Catheter Builder Relationship Specialty Start Date End Date Jose Calvo MD PCP - General 06/13/10 09/13/15 documented as of this encounter
--- OUTSIDE RECORDS SUMMARY | 2023-12-25 18:49 | XMS_ITS | Encounter Summary ---
Author Organization [facility] [address] Care Team Providers Care Medical Records Field Technician Name Role Phone Didier Romero MD Primary Care Provider + Encounter Details Date Type Department Care Team (Late st Contact Info) Description 05/24/2020 Telephone [facility] at [facility], [place] [phone] Sara Gusman MSW [facility] [place] [id number] Social History Tobacco Use Types Packs/Day Years [...] Telephone Encounter - Sara Gusman MSW - 05/24/2020 4:49 PM EST Return msg left for [employer]STER NURSE FOOD MANAGEMENT AIDE [employer] [phone] to facilitate peer to peer in consideration of injection documented in this encounter Plan of Treatment Upcoming Encounters Date Type Department Care Team (Late st Contact Info) Description 01/03/2024 8:15 AM EDT Office Visit Dermatology at [place] [address] [facility] [address] [place] [address] Jake Galvez MD [address] [facility] [place] [address] documented as of this encounter Visit Diagnoses Not on filedocumented in this encounter Care Teams Medical Records Field Technician Relationship Specialty Start Date End Date Didier Romero MD [address] [place] [address] PCP - General Family Medicine 01/11/17 documented as of this encounter
--- OUTSIDE RECORDS SUMMARY | 2023-12-25 18:49 | XMS_ITS | Encounter Summary ---
[place] [address] Care Team Providers Care [place] Leverman Name Role Phone Didier Romero MD Primary Care Provider + Encounter Details Date Type Department Care Team (Late st Contact Info) Description 01/22/2018 Refill Dermatology at [address] [address] Jeana Valentin LPN Social History [...] AM EDT Office Visit Dermatology at [address] [address] Jake Galvez MD [address] [place] [address] DERMATOLOGY [place], [place] [id number] documented as of this encounter Visit Diagnoses Not on filedocumented in this encounter Care Teams [place] Leverman Relationship Specialty Start Date End Date Didier Romero MD [address] [place] [address] PCP - General Family Medicine 01/11/17 documented as of this encounter
--- OUTSIDE RECORDS SUMMARY | 2023-12-25 18:49 | XMS_ITS | Clinical Summary ---
Author Organization [facility] Address [address] [place] [address] Care Team Providers Care Lead Operator Name Role Phone Unknown, Provider Primary Care Provider [phone] Social History Tobacco Use Types Packs/Day Years Used Date Smoking Tobacco: Never Assessed Sex and Gender Information Value Date Recorded Sex Assigned at Not on file Gender Identity Not on file Sexual Orientation Not on file Plan of Treatment Health Maintenance Due Date Last Done Comments RSV Immunization ( o r 60+ Years) (1 - 1-dose 60+ series) 2021 COVID-19 Vaccine (2022-24 season) 2023 Hepatitis C Screen Completed 08/13/2023 Procedures Procedure Name Priority Date/Time Associated Diagnosis Comments HEPATITIS C AB W REFLEX TO HCV RNA BY PCR Routine 08/13/2023 12:00 EDT from Last 3 Months or Most Recently Relevant to Health Maintenance Results * HEPATITIS C AB W REFLEX TO HCV RNA BY PCR (08/13/2023 12:00 EDT) Hep C Antibody Negative Negative 08/14/2023 19:49 EDT [facility] Blood VENOUS BLOOD / Unknown 08/13/2023 12:00 EDT 08/14/2023 18:03 EDT Provider Outr Resulting Lab CHEMISTRY & BLOOD GAS ORDERABLES [facility] [address] [place], [place] [address] from Last 3 Months or Most Recently Relevant to Health Maintenance Care Teams Lead Operator Relationship Specialty Start Date End Date Unknown, ProviderMD [facility] - General 03/13/13
--- OUTSIDE RECORDS SUMMARY | 2023-12-25 18:49 | XMS_ITS | Encounter Summary ---
[place] [address] Care Team Providers Care Motorcycle Subassembly Repairer Name Role Phone Didier Romero MD Primary Care Provider + Encounter Details Date Type Department Care Team (Late st Contact Info) Description 06/01/2020 Telephone [place] [phone] Jerson Harris, RN Social History Tobacco Use [...] Telephone Encounter - Jerson Harris RN - 06/01/2020 8:06 AM EST Grayson Spenser Yousif III :1960 Contact made with patient: I spoke to Mr. Dodd at 8:06 AM regarding his upcoming Right cervical medial branch block scheduled on 06/02/2020 (date) scheduled at 0730 (time) with Dr. [...] for RF patients with a pacemaker) on 06/02/2020 (date of procedure). Antibiotics/Skin assessment/Illness symptoms/Pain level assessment : 1. The patient confirmed that she is not taking antibiotics at this time. [...] NSAIDs: Does the patient take Aspirin/ASA? Yes Pt DC'd six days ago Does the patient take an NSAID? No Diabetic instructions: Patient was advised to inform their PCP regarding safe fasting and the NPO requirements for their upcoming procedure and given the [facility] Nurse Triage Line . Implant: Patient has pacemaker/defibrillator: No WHAT TO [...] postponed. Prior to checking in at 3D Business Operations Coordinator, please be sure to empty your bladder. Patient confirmed understanding that if they do not follow the above instructions, their procedure is likely to be cancelled. [facility] documented in this encounter Plan of Treatment Upcoming Encounters Date Type Department Care Team (Late st Contact Info) Description 01/03/2024 8:15 AM EDT Office Visit Dermatology at [place] [address] [facility] [place] [address] Jake Galvez MD [address] [facility] [place] [address] documented as of this encounter Visit Diagnoses Not on filedocumented in this encounter Care Teams Motorcycle Subassembly Repairer Relationship Specialty Start Date End Date Didier Romero MD [facility] [place] [address] PCP - General Family Medicine 01/11/17 documented as of this encounter
--- OUTSIDE RECORDS SUMMARY | 2023-12-25 18:49 | XMS_ITS | Encounter Summary ---
Author Organization [facility] [place] [address] Care Team Providers Care Associate Professor Of Violin Name Role Phone Didier Romero MD Primary Care Provider + Encounter Details Date Type Department Care Team (Late st Contact Info) Description 03/01/2020 Ancillary Procedure [place] [address] Geoff Lanier MD [facility] [place] [address] Social History Tobacco Use Types Packs/Day Years [...] 8:15 AM EDT Office Visit Dermatology at [place] [address] [place] [phone] Jake Galvez MD [address] [facility] [place] [address] documented as of this encounter Procedures Procedure Name Priority Date/Time Associated Diagnosis Comments FILM LIBRARY STORAGE ONLY MR SPINE Routine 03/01/2020 12:00 AM EDT documented in this encounter Results * Film Library- Storage Only MR Spine (03/01/2020 12:00 AM EDT) Narrative KIMI - 04/12/2020 9:23 PM EST This exam is auto-finalizing. It's purpose is for storage only. Geoff Lanier MD IMG FILM LIBRARY ORD ERABLES Performing Organization Address City/State/[facility] Co de Phone Number [place], [place] documented in this encounter Visit Diagnoses Not on filedocumented in this encounter Care Teams Associate Professor Of Violin Relationship Specialty Start Date End Date Didier Romero MD [address] [place] [address] PCP - General Family Medicine 01/11/17 documented as of this encounter
--- OUTSIDE RECORDS SUMMARY | 2023-12-25 18:49 | XMS_ITS | Encounter Summary ---
[place] [address] Care Team Providers Care Digital Strategy Specialist Name Role Phone Didier Romero MD Primary Care Provider + Encounter Details Date Type Department Care Team (Late st Contact Info) Description 09/15/2019 Refill Dermatology at [address] [address] Jeana Valentin LPN Social History [...] 8:15 AM EDT Office Visit Dermatology at [address] [address] Jake Galvez MD [address] [place] [address] DERMATOLOGY [place], [place] [phone] documented as of this encounter Visit Diagnoses Not on filedocumented in this encounter Care Teams Digital Strategy Specialist Relationship Specialty Start Date End Date Didier Romero MD [address] [place] [address] PCP - General Family Medicine 01/11/17 documented as of this encounter
--- OUTSIDE RECORDS SUMMARY | 2023-12-25 18:49 | XMS_ITS | Encounter Summary ---
Author Organization [facility] [place] [address] Care Team Providers Care Department Of Mathematics Chair Name Role Phone Jose Calvo MD Primary Care Provider [phone] Reason for Visit * Reason Onset Date Comments Labs Only 01/13/2011 Encounter Details Date Type Department Care Team (Late st Contact Info) Description 01/13/2011 Tele[place] [address] Humaira Pablo MD [facility] [place] [address] Labs Only Social History Tobacco Use Types Packs/Day Years Used Date Smoking Tobacco: Never Assessed Sex and Gender Information Value Date Recorded Sex Assigned at Not on file Gender Identity Not on file Sexual Orientation Not on file documented as of this encounter Miscellaneous Notes * Telephone Encounter - Humaira Pablo MD - 01/13/2011 2:04 PM EDT lab documented in this encounter Plan of Treatment Upcoming Encounters Date Type Department Care Team (Late st Contact Info) Description 01/03/2024 8:15 AM EDT Office Visit Dermatology at [address] [phone] Jake Galvez MD [address] [facility] [place] [address] documented as of this encounter Visit Diagnoses Diagnosis 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
--- OUTSIDE RECORDS SUMMARY | 2023-12-25 18:49 | XMS_ITS | Encounter Summary ---
Author Organization [facility] Address [address] [place] [address] Care Team Providers Care Certified Retinal Angiographer Name Role Phone Unknown, Provider Primary Care Provider [phone] Encounter Details Date Type Department Care Team (Late st Contact Info) Description 08/14/2023 Lab Requisition [facility] Pathology & Laboratory Medicine - [facility] [address] [place] [address] Outr Resulting Lab, Provider Social History Tobacco [...] Procedure Name Priority Date/Time Associated Diagnosis Comments HIV 1/2 ANTIGEN AND ANTIBODY, 4TH GENERATION Routine 08/13/2023 12:00 EDT documented in this encounter Results * HIV 1/2 ANTIGEN AND ANTIBODY, 4TH GENERATION (08/13/2023 12:00 EDT) HIV 1 and 2 Antibody/p24 Antigen, 4th Generation Negative Negative 08/14/2023 19:46 EDT [facility] Comment:If acute HIV-1 infec tion is suspected in a high risk patient, submit plasma specimen for HIV-1 RNA quantitation test. Blood VENOUS BLOOD / Unknown 08/13/2023 12:00 EDT 08/14/2023 18:03 EDT Narrative [facility] - 08/14/2023 19:46 EDT Fourth Generation assay performed on the Siemens Centaur XPT. Provider Outr Resulting Lab IMMUNOLOGY A ND SEROLOGY ORDERABLES [facility] [address] [place] [address] documented in this encounter Visit Diagnoses Not on filedocumented in this encounter Care Teams Certified Retinal Angiographer Relationship Specialty Start Date End Date Unknown, Provider, PCP - General 03/13/13 documented as of this encounter
--- OUTSIDE RECORDS SUMMARY | 2023-12-25 18:49 | XMS_ITS | Referral Summary ---
Author Organization [facility] Address [address] [place] [address] Care Team Providers Care Can Striper Name Role Phone Unknown, Provider Primary Care Provider [phone] Social History Tobacco Use Types Packs/Day Years Used Date Smoking Tobacco: Never Assessed Sex and Gender Information Value Date Recorded Sex Assigned at Not on file Gender Identity Not on file Sexual Orientation Not on file Plan of Treatment Not on file Procedures Procedure Name Priority Date/Time Associated Diagnosis Comments HEPATITIS C AB W REFLEX TO HCV RNA BY PCR Routine 08/13/2023 12:00 EDT from Last 3 Months or Most Recently Relevant to Health Maintenance Results * HEPATITIS C AB W REFLEX TO HCV RNA BY PCR (08/13/2023 12:00 EDT) Hep C Antibody Negative Negative 08/14/2023 19:49 EDT [facility] Blood VENOUS BLOOD / Unknown 08/13/2023 12:00 EDT 08/14/2023 18:03 EDT Provider Outr Resulting Lab CHEMISTRY & BLOOD GAS ORDERABLES [facility] [address] [place] [address] from Last 3 Months or Most Recently Relevant to Health Maintenance Care Teams Can Striper Relationship Specialty Start Date End Date Unknown, Provider, PCP - General 03/13/13
--- OUTSIDE RECORDS SUMMARY | 2023-12-25 18:49 | XMS_ITS | Encounter Summary ---
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 Hill recommendation; No further treatment necessary, return to clinic 6 months for repeat skin check Reviewed biopsy results and Dr. Hill recommendation with patient. Voiced understanding. documented in this encounter Plan of Treatment Upcoming Encounters Date Type Department Care Team (Late st Contact Info) Description 01/03/2024 8:15 AM EDT Office Visit Dermatology at [address] [place] [address] Jake Galvez MD [address] [facility] [place] [address] documented as of this encounter Visit Diagnoses Not on filedocumented in this encounter Care Teams Rail Filler Relationship Specialty Start Date End Date Didier Romero MD [address] [place] [id number] PCP - General Family Medicine 01/11/17 documented as of this encounter
--- OUTSIDE RECORDS SUMMARY | 2023-12-25 18:49 | XMS_ITS | Encounter Summary ---
[place] [address] Care Team Providers Care Electric Solderer Name Role Phone Didier Romero MD Primary Care Provider + Encounter Details Date Type Department Care Team (Late st Contact Info) Description 08/18/2019 Refill Dermatology at [address] [phone] Jeana Valentin LPN Social History [...] 8:15 AM EDT Office Visit Dermatology at [address] [phone] Jake Galvez MD [address] [place] [address] DERMATOLOGY [place], [place] [id number] documented as of this encounter Visit Diagnoses Not on filedocumented in this encounter Care Teams Electric Solderer Relationship Specialty Start Date End Date Didier Romero MD [address] [place] [address] PCP - General Family Medicine 01/11/17 documented as of this encounter
--- OUTSIDE RECORDS SUMMARY | 2023-12-25 18:49 | XMS_ITS | Encounter Summary ---
Author Organization [facility] Address [facility] [place] [address] Care Team Providers Care Site Controller Name Role Phone Jose Calvo MD Primary Care Provider [phone] Encounter Details Date Type Department Care Team (Late st Contact Info) Description 09/23/2012 11:43 AM EDT - 09/23/2012 11:59 PM EDT Hospital Encounter XRay at [address] [place] [address] Hand pain Social History Tobacco Use Types Packs/Day [...] Sig Dispensed Refills Start Date End Date aspirin 81 mg EC tablet Take 81 mg by mouth daily. albuterol-ipratropium (COMBIVENT) 18-103 mcg/actuation Aerosol Inhale 2 puffs into the lungs every 6 hours as needed. omeprazole (PRILOSEC) 20 mg capsule Take 20 mg by mouth daily. allopurinol (ZYLOPRIM) 300 mg tablet Take 300 mg by mouth daily. 01/01/2023 irbesartan (AVAPRO) 300 mg tablet Take 300 mg by mouth nightly. 08/18/2019 testosterone (ANDROGEL) 1 %(50 mg/5 gram) GlPk 50 MG/5 GRAM, TD, Once daily 07/11/2010 12/16/2020 documented as of this encounter Plan of Treatment Upcoming Encounters Date Type Department Care Team (Late st Contact Info) Description 01/03/2024 8:15 AM EDT Office Visit Dermatology at [place] [address] [place] [address] Jake Galvez MD [address] [facility] [place] [address] documented as of this encounter Procedures Procedure Name Priority Date/Time Associated Diagnosis Comments XR HAND DIAGNOSTIC MINIMUM 3 VIEWS Routine 09/23/2012 11:50 AM EDT Hand pain documented in this encounter Results * XR hand diagnostic [...] for the basal (1st carpometacarpal) and triscaphe (gprzrlpre-eocvaopyk-rvilhzle) joints. ??Here there is significant joint space [...] for the basal (1st carpometacarpal) and triscaphe (akytggwex-unrlvdnxr-prynyoyb) joints. Here there issignificant joint space narrowing, [...] in this encounter Visit Diagnoses Diagnosis Hand pain Pain in limb documented in this encounter Care Teams Site Controller Relationship Specialty Start Date End Date Jose Calvo MD PCP - General 06/13/10 09/13/15 documented as of this encounter
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
== END 2023-12-25 18:43 | disposition home or self-care (01) ==
LOC: NCHCN 18:42
PROVIDERS: PCP Family Medicine; Visit Provider Family Medicine
DX: R21 Rash and other nonspecific skin eruption (principal)
CPT/HCPCS: 85025

== ENCOUNTER 2024-03-21 09:51 | Day surgery (SDC) | payer OTHER, BC, SELFPAY ==
--- NOTE | 2024-03-20 19:38 | W.PM.DSUDISC ---
Date of service: 03/21/24 Time of Service: 12:07 Discharge Plan Disposition Patient Disposition: Home Condition: Good Discharge Details Reason For Visit: screening colonoscopy Attending Provider: Richard Hidalgo Primary Care Provider: Didier Romero Home Meds and New Rx's Prescriptions: Continued omeprazole 20 MG capsule,delayed release(DR/EC) 20 mg PO DAILY (DME) Massage Therapy Qty: 1 0RF Rx Instructions: Recommend massage therapy to bilateral hips for scar tissue manipulation and tissue plane management s/p bilateral hip replacements. irbesartan [Avapro] 300 mg tablet 150 mg PO DAILY atorvastatin 20 mg tablet 20 mg PO QHS metoprolol succinate 50 mg tablet extended release 24 hr 50 mg PO DAILY cholecalciferol (vitamin D3) 125 mcg (5,000 unit) capsule 125 mcg PO DAILY allopurinol 100 mg tablet 300 mg PO DAILY fluticasone propionate 220 mcg/actuation HFA aerosol inhaler 2 puff inhalation BID PRN Combivent 200 PUFF aerosol 2 puff Inhalation PRN PRN aspirin 81 mg Tablet,Delayed Release (Dr/Ec) 81 mg PO DAILY folic acid 1 mg Tablet 1 mg PO DAILY cyanocobalamin (vitamin B-12) 1,000 mcg/mL Syringe 1,000 mcg .MONTHLY fluticasone propionate 220 mcg/actuation Hfa Aerosol Inhaler 0 puff INHALATION DAILY Rx Instructions: 1-2 PUFFS ONCE DAILY testosterone cypionate 200 mg/mL oil 100 mg IM DIRECTED Rx Instructions: 1ML IM EVERY 2 WEEKS Discontinued bisacodyl [Dulcolax (bisacodyl)] 5 mg tablet,delayed release (DR/EC) 5 mg PO ONCE Qty: 4 0RF Rx Instructions: Take per colonoscopy instructions provided by ordering providers office polyethylene glycol 3350 17 gram/dose powder 17 g PO ONCE Qty: 238 0RF Rx Instructions: Take per colonoscopy instructions provided by ordering providers office Discharge Instructions Additional Instructions: Grayson, we are able to complete your colonoscopy today without any difficulty. Your prep was excellent negative everything fine. There was a small bit of tissue that did have some features consistent with a polyp, so I did go ahead and remove that today. Again, this is quite small, and might just be totally normal tissue. Regardless, I will send it off to the pathologist for their review. If it is a true polyp, that may impact the timing of your next colonoscopy. Those results usually take a week or 2 for me to get back, and once we have them, the office will be in touch with final recommendations. If you have any questions in the meantime, please do not hesitate to ask. 1. If tolerated, consume a soft, low fiber diet for 1-2 days. 2[address] Do not drive, drink alcohol, operate machinery, make critical decisions, or do activities that require coordination or balance for 24 hours. 3. Because air was put into your colon during the procedure, expelling air from your rectum (passing gas or farting) is normal. 4. You may not have a bowel movement for 1-3 days because of the colonoscopy prep. This is normal. 5. Go directly to the emergency room if you notice any of the following: Develop chills (warm to touch), or if you have a thermometer and your temperature is above 101 Difficulty breathing or difficultly swallowing Persistent vomiting Severe abdominal pain, other than gas cramps Severe chest pain Black, tarry stools Any bleeding ? exceeding one tablespoon 6. Call your physician if the site where your intravenous was started becomes red, swollen, painful, and warm to touch. 7. Your physician has reviewed your pre-procedure medications. Please continue to take those medications as previously ordered. You will be given specific information/education regarding any changes to your medications before leaving. Activity:: Activity as Tolerated Diet:: As Tolerated Discharge Orders Discharge Orders: Discharge Order (Routine); Ordered 03/20/24 Ordered By: Richard Hidalgo DS: Diagnosis Discharge Diagnosis (1) Encounter for screening colonoscopy: Status: Acute Asessment and Plan: Follow-up on polypectomy report
--- NOTE | 2024-03-20 19:40 | COLE_ITS ---
Date of service: 03/21/24 Time of Service: 12:08 Colonoscopy Report Date of procedure: 03/21/24 Pre-op diagnosis general: screening colonoscopy Post-op diagnosis procedure note: other (Colon polyp) Procedure: colonoscopy with polypectomy Surgeon: Richard Hidalgo Anesthesia Type: General:No Airway Estimated blood loss (mL): 5 Pathology: other (Less than 0.25 cm flat polyp at 65 cm) Complications: None Disposition: same day Indications: Grayson is a 64 year old man who needs a screening colonoscopy Prep: Miralax/Dulcolax Procedure Start Time: 11:39 Procedure End Time: 12:00 Retraction Time: 16 Findings: 0.25 cm polyp at 65 cm Procedure Description: After the induction of anesthesia, and with the patient in left lateral decubitus position, I began by performing an external anorectal exam.? Perineum and skin were normal, as was the anal verge.? T this was normal.? Next, I performed a digital rectal exam.? I did appreciate any abnormal findings.? Next, I advanced a colonoscope into the rectal vault.? I performed retroflex ion.? This was also normal.? Using insufflation, I then advanced the colonoscope beyond the rectal folds and into the sigmoid colon before advancing towards the cecum.? The quality of the prep was excellent.? The scope was noted to be in the cecum by identification of the ileocecal valve and appendiceal orifice.? I then began withdrawing the colonoscope using repeated irrigation as necessary for f ull evaluation of the colonic mucosa. Around 65 cm from the anal verge was a small lymphoid tissue.. Less than 0.25 cm, was mostly flat. Narrowband imaging was used to assist with analysis. Generally, it appeared consistent with a hyperplastic polyp, or perhaps even just some benign lymphoid aggregate or normal tissue. To be safe, however, I did remove this with cold forceps. There was minimal bleeding. ?Once the scope was withdrawn to the level of the rectum, great care was taken to examine portions of the rectal folds.? Finally, the scope was withdrawn and the patient was brought to the same-day surgery recovery unit as the anesthetic wore off. ?The findings and instructions were shared with the patient prior to discharge. [place] Bowel Prep [place] Bowel Prep Right Colon: 2 Left Colon: 3 Transverse Colon: 3 Total Score: 8
[2024-03-21] MEDS: Lactated Ringers 1,000 ML 80 ML IV (10:23)
--- NOTE | 2024-03-21 11:14 | ANES.PREOP_ITS ---
General Info Date of Service Date Performed: 03/21/24 Height: 5 ft 10 in Weight: 83.3 kg Body Mass Index (BMI): 26.3 Surgical Procedure: Operation Date: 03/21/24 11:20 Proposed Procedure Side Surgeon aretha Hidalgo MD Meds Allergies and Home Medications Allergies Allergy/AdvReac Type Severity Reaction Status Date / Time hydromorphone (From Dilaudid) Allergy Severe Other (See Verified 03/21/24 10:34 Comment) chlorhexidine gluconate Allergy Intermediate Rash & Verified 03/21/24 10:34 (From Hibiclens) Burning oxycodone HCl (From Percocet) AdvReac Severe hallucinate Verified 03/21/24 10:34 s Home Medication ?Medication ?Instructions ?Recorded omeprazole 20 mg capsule,delayed 20 mg PO DAILY 10/13/15 release ipratropium 18 mcg-albuterol 103 2 puff inhalation PRN PRN 01/10/17 mcg/actuation aerosol inhaler (Combivent) Massage Therapy #1 ea 06/16/19 aspirin 81 mg tablet,delayed 81 mg PO DAILY 10/21/21 release cyanocobalamin (vitamin B-12) 1,000 mcg .MONTHLY 10/21/21 1,000 mcg/mL injection syringe fluticasone propionate 220 0 puff inhalation DAILY 10/21/21 mcg/actuation HFA aerosol inhaler folic acid 1 mg tablet 1 mg PO DAILY 10/21/21 irbesartan 300 mg tablet (Avapro) 150 mg PO DAILY 06/15/22 atorvastatin 20 mg tablet 20 mg PO QHS 01/24/24 cholecalciferol (vitamin D3) 125 125 mcg PO DAILY 01/24/24 mcg (5,000 unit) capsule metoprolol succinate 50 mg 50 mg PO DAILY 01/24/24 tablet,extended release 24 hr allopurinol 100 mg tablet 300 mg PO DAILY 02/29/24 fluticasone propionate 220 2 puff inhalation BID PRN 02/29/24 mcg/actuation HFA aerosol inhaler testosterone cypionate 200 mg/mL 100 mg IM DIRECTED 02/29/24 intramuscular oil Current Visit Medications: Current Medications Generic Name Dose Route Start Last Admin Trade Name Freq PRN Reason Stop Dose Admin Hyoscyamine Sulfate 0.125 mg 03/20/24 19:41 Hyoscyamine 0.125 Mg Sl/Oral/Chew SL 11/16/24 19:40 DIRECTED PRN Ringer's Solution 1,000 mls @ 80 mls/hr 03/21/24 06:00 03/21/24 10:23 IV 04/19/24 23:59 80 mls/hr INFUSION CON Administration IV Miscellaneous Supplies 1 each 03/21/24 06:00 Iv Access IV 04/19/24 23:59 DIRECTED CON Ondansetron HCl 4 mg 03/20/24 19:41 Ondansetron 4 Mg/2 Ml Vial IVP 04/19/24 19:40 Q4H PRN PRN Nausea / Vomiting Sodium Chloride 0 ml 03/21/24 06:00 Normal Saline Flush 10 Ml Syr IV 04/19/24 23:59 PRN PRN Sodium Chloride 0 ml 03/21/24 06:00 Normal Saline 10 Ml Vial IJ 04/19/24 23:59 DIRECTED PRN Sterile Water 0 ml 03/21/24 06:00 Water,Injection,Sterile 10 Ml Vial IJ 04/19/24 23:59 DIRECTED PRN PFSH Active Problems Active Problems: Problem Status Onset Code Encounter for screening colonoscopy Acute Z12.11 Abnormality of testosterone Acute R79.89 Internal derangement of left knee Acute M23.92 Lumbosacral radiculopathy at S1 Acute M54.17 Neck pain Acute M54.2 Incontinence of bowel Acute R15.9 Chest pain Acute R07.9 PTSD (post-traumatic stress disorder) Acute F43.10 Lumbar pain with radiation down both legs Acute M54.5 Tremor Acute R25.1 Ulnar neuropathy at elbow of right upper extremity Acute G56.21 Ulnar neuropathy at elbow of left upper extremity Acute G56.22 Carpal tunnel syndrome on both sides Acute G56.03 Cervical strain Acute S16.1XXA Tremor observed on examination Acute R25.1 Numbness and tingling in left hand Acute R20.0, R20.2 Cervical spondylosis Acute M47.812 Lumbar strain Acute S39.012A Neck pain, acute Acute M54.2 Trochanteric bursitis, right hip Acute M70.61 Trochanteric bursitis, left hip Acute M70.62 Weakness of both hips Acute R29.898 History of bilateral total hip arthroplasty Acute 05/07/19 Z96.643 Acromioclavicular arthrosis, bilateral Acute 12/27/15 M19.011, M19.012 Biceps tendinitis of right shoulder Acute 06/27/17 M75.21 Right rotator cuff tendinitis Acute 12/27/15 M75.81 Tear of left rotator cuff Acute 10/13/15 M75.102 Medical History Medical History Hyperlipidemia Cobalamin deficiency TIA (transient ischemic attack) (~07/2015) Gout Hypertension Chronic GERD Asthma Surgical History Surgical History History of tonsillectomy History of colonoscopy H/O melanoma excision rt torso H/O spinal fusion L4-S1 [facility] [place] S/P left rotator cuff repair 1991 History of arthroscopy of right shoulder with distal clavicle excision and biceps tenodesis, 2017 History of right inguinal hernia repair 1983 Tobacco Smoking/Tobacco Use Status: Never Alcohol Alcohol Intake: current Alcohol intake frequency: 3 or more drinks per day Alcohol type: beer Substance Use Substance use: Never Vital Signs and Lab Results Manually Entered Vital Signs Most Recent Manually Entered Vital Signs: Adult Blood Pressure: 170/111 Heart Rate: 79 Respirations: 20 Oxygen Saturation (%): 99 Temperature (C): 37 C Lab Results Blood Type / Crossmatch: No Data to Display Complete Blood Count: No Data to Display Complete Metabolic Panel: No Data to Display Liver Function Panel: No Data to Display Coagulation Panel: No Data to Display Cardiac Panel: No Data to Display Arterial Blood Gas: No Data to Display Venous Blood Gas: No Data to Display Pancreas Panel: 2 No Data to Display Thyroid Panel: No Data to Display Infectious Disease: No Data to Display Blood Cultures: No Data to Display Toxicology Panel: No Data to Display Imaging and Studies Imaging and Studies Study information below may be from another EMR and interpreted by another provider. Please see original notes in EMR for more complete details. EKG Summary: 10/21/21: EKG PATIENT NAME: Grayson Dodd UNIT #: [id number] ORDERING PROVIDER: Anthony Ferrari DO PRIMARY CARE PROVIDER: ZACK MUHAMMAD MD DATE/TIME OF SERVICE: 10/21/21 0355 : 1960 PERFORMING LOCATION: [place] APPROVED REPORT Exam: Resting ECG Reason for Exam: dizzy Patient Location: E HR:84 bpm ECG Measurements Heart Rate 84 AXIS NM 194 P 63 QRSd 103 QRS 5 QT 355 T51 QTc 421 Conclusion Sinus rhythm...normal P axis, V-rate 60- 99 Physician: Rate 84, sinus rhythm, intervals normal, no significant ST elevations or depressions. No STEMI. No prior EKG for comparison. <Electronically signed by ANTHONY FERRARI DO in OV> E-Sign Date: 10/21/21 E-Sign Time: 403 ADDENDUM APPROVED REPORT Exam: Resting ECG Reason for Exam: dizzy Patient Location: E HR:84 bpm ECG Measurements Heart Rate 84 AXIS NM 194 P 63 QRSd 103 QRS 5 QT 355 T51 QTc 421 Conclusion Sinus rhythm...normal P axis, V-rate 60- 99 Physician: Rate 84, sinus rhythm, intervals normal, no significant ST elevations or depressions. No STEMI. No prior EKG for comparison. I have reviewed and I agree with the emergency room physician's ECG interpretation. Stress Test Summary: 04/03/22: MPI Conclusion Myocardial perfusion is normal. There is no myocardial ischemia or evidence of prior infarction EF 69%, normal wall motion Anesthesia Assessment and Plan Anesthesia History Personal History: No History of Anesthesia Complications Family History: No Family History of Anesthesia Complications Exercise Tolerance Exercise Tolerance: Metabolic Equivalents>4 Pertinent Negatives Pertinent Negatives: No Symptoms of GERD and No Major Pulmonary Symptoms or Complaints Cardiac & Pulmonary Exam Cardiac Exam: Normal S1/S2 Heart Sounds Pulmonary Exam: Clear Bilateral Breath Sounds Implantable Cardiac Device Does patient have a Pacemaker or an ICD?: No Airway Exam Known Difficult Airway: No Mallampati Class: 1 Mouth Opening: Normal (> 3cm) Thyromental Distance: Greater than 3 cm Neck Range of Motion: Full ROM Neck Circumference: Thick Teeth Condition: Normal Dentition ASA Classification ASA Score: ASA 2 Emergency Case?: No NPO Status NPO Status: NPO Clears >2 hours, Solids >8 hours Anesthesia Plan Resuscitation Status: Full Code Anesthesia Technique: General Anesthesia Airway Planned: Natural Airway Monitors Used: Standard Monitors
[2024-03-21 11:30] VITALS: BP 170/111; PULSE 79; RESP 20; TEMPC 37; O2SAT 99; BMI 26.3
[2024-03-21 11:36] VITALS: BP 170/111; PULSE 79; RESP 20; TEMP 37; O2SAT 97
[2024-03-21 11:48] VITALS: BP 170/111; PULSE 79; RESP 20; TEMP 37; O2SAT 97
--- NOTE | 2024-03-21 11:55 | BOWEL_PTH ---
PATIENT: Grayson Dodd III LOC: [facility] U#:[id number] AGE/SX: 64/M ROOM: RE03/21/[address]: Richard Hidalgo MD : 1960 BED: DIS: 03/21/2024 SPEC #: [id number] RECD: 03/21/24 12:52 STATUS: MARIBETH REQ #: [id number] ANGEL: 03/21/24 11:[address]: Richard Hidalgo DEPT: Surgical Specimen RECD BY: Lilia Dubois ENTERED: 03/21/24 12:53 SP TYPE: Bowel OTHR DR: Didier Romero Tissues: 1 - BIOPSY BOWEL Procedures: GROSS AND MICRO LEVEL 4 Comments: [id number]
[2024-03-21 12:03] VITALS: BP 152/98; PULSE 84; RESP 18; TEMP 36.8; O2SAT 97
--- NOTE | 2024-03-21 12:21 | W.ANESPOSTOP ---
Postoperative Evaluation Date, Time and Location Date Performed: 03/21/24 Time Performed: 12:05 Patient Location: Day Surgery Unit Vital Signs Most Recent Imported Vital Signs: Most Recent Vital Signs Temp Pulse Resp BP Pulse Ox 36.8 C 84 18 152/98 H 97 03/21/24 12:03 03/21/24 12:03 03/21/24 12:03 03/21/24 12:03 03/21/24 12:03 Pain Score Most Recent Pain Score: Most Recent Pain Score Pain Level 0 03/21/24 12:03 Assessment Mental Status: Awake (Alert & Oriented to Patient Baseline) Airway and Respiratory Function: Patent airway with normal (patient baseline) respiratory exam Cardiovascular Function: Hemodynamically Stable Hydration Status: Adequately Hydrated Nausea & Vomiting: No Nausea or Vomiting Pain: Pt. Denies Any Pain Peripheral Nerve Block: Patient did not receive a nerve block
[2024-03-21 12:23] VITALS: BP 176/98; PULSE 73; RESP 18; TEMP 36.8; O2SAT 98
== END 2024-03-21 12:37 | disposition home or self-care (01) ==
LOC: SUR 09:52
PROVIDERS: PCP Family Medicine; Visit Provider Surgery
PROC: 0DJD8ZZ Inspection of Lower Intestinal Tract, Via Natural or Artificial Opening Endoscopic (ICD-10-PCS; CPT 45378; principal; 2024-03-21 11:15)
DX: Z12.11 Encounter for screening for malignant neoplasm of colon (principal); D12.4 Benign neoplasm of descending colon
CPT/HCPCS: 45380; 88305; J2704

== ENCOUNTER 2024-05-30 10:56 | Outpatient (REF) | payer OTHER, BC, SELFPAY ==
--- OUTSIDE RECORDS SUMMARY | 2024-05-30 10:59 | XMS_ITS | Clinical Summary ---
[place] [address] Care Team Providers Care Junior Systems Engineer Name Role Phone Lizett Belle MD Primary Care Provider [phone] Allergies Active Allergy Reactions Criticality Noted Date Comments Chlorhexidine Gluconate Medium 05/07/2020 Other reaction(s): Rash & Burning Hydromorphone (Pf) Other (See Comments) High 05/17/2020 Lowers blood pressure Oxycodone-Acetaminophe n 05/17/2020 Other reaction(s): Hallucinations Pollen Extracts 01/23/2019 Medications Medication Sig Dispensed Refills Start Date End Date Status omeprazole (PRILOSEC) 20 mg capsule Take 20 mg by mouth daily. Active folic acid (FOLVITE) 1 mg Tablet daily. 08/10/2015 Active cyanocobalamin, vitamin B-12, 1,000 mcg/mL Solution Once a Month 0 12/13/2016 Active FLOVENT HFA 220 mcg/actuation HFA Aerosol Inhaler as needed. 11/03/2016 Active BD SafetyGlide Needle 25 x 5/8 Needle EVERY 2 WEEKS WITH TESTOSTERONE 07/26/2019 Active BD SafetyGlide Needle 25 gauge x 1 Needle 04/09/2019 Active testosterone cypionate (DepoTESTOSTERONE Cypionate) (200mg/mL) injection Inject 100 mg into the muscle every 14 days. Active BD Luer-Kg Syringe 3 mL 22 gauge x 1 Syringe USE TWICE MONTHLY 09/23/2020 Active UNABLE TO FIND 2,500 mcg daily. Med Name: Vitamin b12 Active allopurinoL (Zyloprim) 300 mg tablet Take 1 tablet by mouth daily. Active atorvastatin (Lipitor) 20 mg tablet Take 1 tablet by mouth nightly. Active aspirin EC 81 mg EC (DR) tablet Take 81 mg by mouth every 24 hours. 07/27/2023 Active fluticasone propionate (Flovent HFA) 220 mcg/actuation inhaler (HFA) Inhale 2 puffs into the lungs 2 times daily. Active ipratropium-albutero L (Combivent Respimat) 20-100 mcg/actuation inhaler Inhale 2 puffs 4 times a day by inhalation route as needed. 08/13/2023 Active irbesartan (Avapro) 150 mg tablet Take 1 tablet by mouth daily. Active metoprolol succinate XL (Toprol-XL) 50 mg ER 24 hr tablet Take 1 tablet by mouth daily. Active Active Problems Problem Noted Date Diagnosed [...] Care Team (Late st Contact Info) Description 07/08/2024 8:45 AM EST Office Visit Dermatology at [place] [address] [place] [address] Jake Galvez MD [address], [address] [place] [address] Health Maintenance Due Date Last Done Comments CT Colonography 1961 Colonoscopy 1961 Colorectal Cancer Screening 1961 FIT DNA 1961 FIT 1961 Sigmoidoscopy (10 year) with FIT yearly 1961 Sigmoidoscopy 1961 DM Creatinine yearly 1971 DM Hemoglobin A1c 1971 DM Opthalmology Exam 1971 DM Urine Microalbumin yearly 1971 HIV screen 1979 Hepatitis C Screening 1979 Pneumococcal Vaccine: At-Risk 5-64yrs (1 of 2 - PCV) 0 01/03/1980 Tetanus/Diphtheria/Pertussis Vaccines (1 - Tdap) 01/02 Zoster vaccine (1 of 2) 2011 Advance Directive 01/03/2016 Covid-19 Vaccine (1 - 2024-25 season) 2024 Influenza (Flu) vaccine (1 o f 1 - Influenza standard series) 02/03/2024 Care Teams Junior Systems Engineer Relationship Specialty Start Date End Date Lizett Belle MD [facility] [address] [place] [address] PCP - General Family Medicine 01/03/24
--- OUTSIDE RECORDS SUMMARY | 2024-05-30 10:59 | XMS_ITS | Encounter Summary ---
[place] [address] Care Team Providers Care Planer Tailer Name Role Phone Didier Romero MD Primary [...] 8:45 AM EST Office Visit Dermatology at [address] [place] [id number] Jake Galvez MD [address] [place] [address] [address], [place] [address] documented as of this encounter Visit Diagnoses Not on filedocumented in this encounter Care Teams Planer Tailer Relationship Specialty Start Date End Date Didier Romero MD [address] [place] [address] PCP - General Family Medicine 01/11/17 01/02/24 documented as of this encounter
--- OUTSIDE RECORDS SUMMARY | 2024-05-30 10:59 | XMS_ITS | Encounter Summary ---
[place] [address] Care Team Providers Care Educational Programming Director Name Role Phone Didier Romero MD [...] 8:45 AM EST Office Visit Dermatology at [address] [place] [address] Jake Galvez MD [address] [place] [address] RD, [place] [address] documented as of this encounter Visit Diagnoses Not on filedocumented in this encounter Care Teams Educational Programming Director Relationship Specialty Start Date End Date Didier Romero MD [address] [place] [address] PCP - General Family Medicine 01/11/17 01/02/24 documented as of this encounter
--- OUTSIDE RECORDS SUMMARY | 2024-05-30 10:59 | XMS_ITS | Encounter Summary ---
[place] [address] Care Team Providers Care Motor Operator Name Role Phone Lizett Belle MD Primary Care Provider [phone] Encounter Details Date Type Department Care Team (Latest Contact Info) Description 01/03/2024 Travel Social History Tobacco Use Types Packs/Day [...] 8:45 AM EST Office Visit Dermatology at [address] [place] [phone] Jake Galvez MD [address], [place] [address] documented as of this encounter Visit Diagnoses Not on filedocumented in this encounter Care Teams Motor Operator Relationship Specialty Start Date End Date Lizett Belle MD [facility] [address] [facility] [address] [place] [address] PCP - General Family Medicine 01/03/24 documented as of this encounter
--- OUTSIDE RECORDS SUMMARY | 2024-05-30 10:59 | XMS_ITS | Continuity of Care Document ---
Author Organization [facility] Address [address] [place] [address] Care Team Providers Care [employer] In[employer] Name Role Phone Didier Haji Primary Care Physician Encounter [facility] Date(s): 08/17/22 - 08/17/[address] [address] Discharge Disposition: Home or Self Care Attending Physician: Didier Haji MD Admitting Physician: Didier Haji MD Referring Physician: Didier Haji MD Allergies, Adverse Reactions, Alerts Substance Reaction Severity Status POLLEN EXTRACTS Unknown Active acetaminophen-oxycodone Hallucinations Unknown Ac tive Immunizations Given and Recorded Vaccine Date Status Refusal Reason SARS-CoV-2 (COVID-19) mRNA-1273 vaccine 04/06/21 R ecorded SARS-CoV-2 (COVID-19) mRNA-1273 vaccine 09/20/20 R ecorded SARS-CoV-2 (COVID-19) mRNA-1273 vaccine 08/23/20 R ecorded tetanus-diphth toxoids (Td) adult/adol 12/15/20 Re corded zoster vaccine, inactivated 12/15/20 Recorded influenza virus vaccine, live 04/05/19 Recorded influenza virus vaccine, live 05/16/17 Recorded influenza virus vaccine, inactivated 04/06/18 Nolberto rded influenza virus vaccine, inactivated 04/04/16 Nolberto rded influenza virus vaccine, inactivated 03/04/11 Nolberto rded pneumococcal 13-valent conjugate vaccine 06/09/15 Recorded zoster vaccine live 11/01/12 Recorded tetanus/diphth/pertuss (Tdap) adult/adol 11/04/10 Recorded pneumococcal 23-polyvalent vaccine 07/29/10 Record ed Results Laboratory List Name Date CBC w/ Diff 08/17/22 Comprehensive Metabolic Panel 08/17/22 PT/ INR 08/17/22 PTT 08/17/22 Automated Diff 08/17/22 Most recent to oldest [Reference Range]: 1 WBC [5.0-10.0 x10^3/mcL] 6.2 x10^3/mcL (08/17/22 12:10 PM) RBC [4.6-6.0 x10^6/mcL] 4.8 x10^6/mcL (08/17/22 12:10 PM) Neutro Auto [40.0-75.0 %] 53.6 % (08/17/22 12:10 PM) Lymph Auto [20.0-50.0 %] 30.7 % (08/17/22 12:10 PM) Addison Auto [2.0-15.0 %] 12.2 % (08/17/22 12:10 PM) Basophil Auto [0.0-1.0 %] 1.0 % (08/17/22 12:10 PM) Prothrombin Time [9.0-11.0 seconds] 9.4 seconds (08/17/22 12:10 PM) INR 0.9 *NA* (08/17/22 12:10 PM) BUN [7-18 mg/dL] 11 mg/dL (08/17/22 12:10 PM) Glucose Level [74-106 mg/dL] 104 mg/dL (08/17/22 12:10 PM) Potassium Level [3.5-5.1 mmol/L] 4.5 mmo l/L (08/17/22 12:10 PM) MCV [80.0-96.0] 94.4 (08/17/22 12:10 PM) AST [15-37 unit/L] 26 unit/L (08/17/22 12:10 PM) ALT [16-63 unit/L] 33 unit/L (08/17/22 12:10 PM) MCHC [31.0-35.0 g/dL] 34.1 g/dL (08/17/22 12:10 PM) Sodium Level [136-145 mmol/L] 133 mmol/L *LOW* (08/17/22 12:10 PM) Hct [41.0-51.0 %] 45.4 % (08/17/22 PM) Partial Thromboplastin Time [22-35 secon ds] 24 seconds (08/17/22: PM) Calcium Level [8.5-10.1 mg/dL] 9.0 mg/dL (08/17/22 PM) Albumin Level [3.4-5.0 g/dL] 3.9 g/dL (08/17/2210 PM) Protein Total [6.4-8.2 g/dL] 7.1 g/dL (08/17/22:10 PM) MCH [26.0-32.0 pg] 32.2 pg *HI* (08/17/22 PM) Neutro Absolute 3.3 x10^3/mcL *NA* (08/17/22) Bilirubin Total [0.2-1.0 mg/dL] 0.7 mg/d L (08/17/22 PM) Hgb [14.0-18.0 g/dL] 15.5 g/dL (08/17/22:10 PM) Alk Phos [46-146 unit/L] 48 unit/L (08/17/22:10 PM) Platelets [130-450 x10^3/mcL] 224 x10^3/ mcL (08/17/22:10 PM) CO2 [21-32 mmol/L] 30 mmol/L (08/17/22 PM) eGFR Non-AA [>=60] 83 (08/17/22:10 PM) eGFR AA [>=60] 83 (08/17/22 12:10 PM) Chloride Level [98-107 mmol/L] 95 mmol/L *LOW* (08/17/22) RDW-CV [11.5-17.0 %] 12.6 % (08/17/22: PM) Imm Gran Auto [0.0-0.9 %] 0.3 % (08/17/22 PM) Creatinine Level [0.70-1.30 mg/dL] 1.03 mg/dL (08/17/22 12:10 PM) Eos, Auto [1.0-6.0 %] 2.2 % (08/17/22 12:10 PM) Social History Social History Type Response Sex Male Patient Care team information Care Team Personnel Name: Nick HOOPER, Didier Perez MD Position: PowerChart View Only Member Role: Primary Care Physician Address: Address: [address] [address]- Care Team Related Persons Name: ALEX MRATINEZ Address: Home [address] [place], [place] [id number]
--- OUTSIDE RECORDS SUMMARY | 2024-05-30 10:59 | XMS_ITS | Encounter Summary ---
[place] [address] Care Team Providers Care [employer] Attendant Name Role Phone Lizett Belle MD Primary Care Provider [phone] Reason for Visit * Reason Comments Skin Check 6 mo Encounter Details Date Type Department Care Team (Late st Contact Info) Description 01/03/2024 8:15 AM EDT Office Visit Dermatology at [address] [phone] Jake Galvez MD [address] [place] [address], [facility] [place] [address] History of malignant melanoma; AK (actinic keratosis); [...] Progress Notes * Jake Galvez MD - 01/03/2024 8:15 AM EDT Problem: 1. 6-month skin checkup 2. 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 Status post 5-FU applications to bilateral forearms 4. History of malignant melanoma, 1 mm Breslow depth, July 2011 diagnosed in [place], rightinferior axillary vault area, with a negative [...] He has been doing well. He has has some new actinic keratoses on the left and right lateral cheeks. Patient lives in [facility]. Physical examination reveals a pleasant 64-year-old gentleman who has a benign examination of the head and the neck the chest the back the hands arms forearms thighs and calves. He has no evidence ofrecurrent tumor on the left lateral neck. He has actinic keratoses on the left and right lateral cheeks. Assessment plan: History of malignant melanoma and history of atypical intraepidermal melanocytic proliferation 1. No evidence of recurrence at prior treatment sites 2. Patient reassured 3. Continue sun avoidance precautions. 4. Return to clinic in 6 months for repeat check. Actinic keratosis bilateral cheeks 1. LN 2 x 2 applied to each of 7 sites. CC: Lizett Belle MD documented in this encounter Plan of Treatment Upcoming Encounters Date Type Department Care Team (Late st Contact Info) Description 07/08/2024 8:45 AM EST Office Visit Dermatology at [address] [place] [phone] Jake Galvez MD [address], [place] [address] documented as of this encounter Visit Diagnoses Diagnosis History of malignant melanoma Personal history of malignant melanoma of skin AK (actinic keratosis) Actinic keratosis History of SCC (squamous cell carcinoma) of skin Personal history of other malignant neoplasm of skin documented in this encounter Care Teams Tank [employer] Attendant Relationship Specialty Start Date End Date Lizett Belle MD [address] [place] [address] [address] [place] [address] PCP - General Family Medicine 01/03/24 documented as of this encounter
--- OUTSIDE RECORDS SUMMARY | 2024-05-30 10:59 | XMS_ITS | Data Portability ---
Author Organization [facility] [place] [address] Care Team Providers Care Metallurgical Engineering Technician Name Role Phone ESTER DON Telecommunications Line Mechanic CHINMAY SHAVER Occupational Medicine KIAN HODGES Neurosurgeon Assessment Encounter Date Assessment Date Assessment LastModified by Organization Details LastModified Time 08/13/2023 08/13/2023 The total time devoted to today's encounter, including both the jgpk-lj-gjrk time with the patient and/or family/caregi haven and xbi-uhxt-dv-f keyur time I personally spent is 50 minutes. Not available 08/13/2023 12:34:34 Plan of Treatment Reminders Order Date Submit Date Provider Last Modified By Organization Details Last Modified Time Details Appointments Annual Wellness Exam 40 2023 09:00A Carmela Belle Not available Not available Not available Annual Wellness Exam 40 2025 08:20A M Lizett Belle Not available Not available Not available Lab uric acid, serum or plasma - 3 tigers, RAC 2023 024 [facility] (Registration ), [address] [place] [address] [place], [address], 08/14/2023 20:11:36 lipids, total, serum - 3 tigers, RAC 2023 024 ADOLFO [facility] (Registration ), [address] [place] [address] [place], [address], 08/14/2023 20:10:28 HbA1c (hemoglob in A1c), blood - 3 tigers, RAC 2023 024 [facility] (Registration ), [address] [place] [address] [place], [address], 08/27/2023 07:30:22 hepatitis C virus Ab, serum - 3 tigers, [facility] 2023 024 [facility] (Registration ), [address] [place] [address] [place], [address], 08/15/2023 10:53:56 HIV (1+2) Ab screen, serum - 3 tigers, [facility] 2023 024 [facility] (Registration ), [address] [place] [address] [place], [address], 08/15/2023 10:54:35 vitamin B12, serum - 3 tigers, [facility] 2023 024 [facility] (Registration ), [address] [place] [address] [place], [address], 08/14/2023 20:10:06 testoster one, free + total, serum - Right AC 2 red 1 lav [address] [facility] (Registration ), [address] [place] [address] [place], [address], 09/03/2023 11:24:00 HbA1c (hemoglob in A1c), blood - Right AC 2 red 1 lav 2023 024 [facility] (Registration ), [address] [place] [address] [place], [address], 08/24/2023 16:48:32 lipid panel, serum 2023 024 [facility] (Registration ), [address] [place] [address] [place], [address], 11/14/2023 16:55:14 vitamin B12, serum 2023 024 [facility] (Registration ), [address] [place] [address] [place], [address], 11/14/2023 16:55:02 CBC w/ diff - please send copy to Dr. Don 2023 024 [facility] (Registration ), [address] [place] [address] [place], [address], 12/26/2023 12:14:14 Referral None recorded. Procedures colonosco py screening (PROC) - last colonosco py in [place] over 10 years ago, normal. 2023 024 [facility], [address] [place] [address] , [place], [place], [address], 03/12/2024 13:41:21 Surgeries None recorded. Imaging None recorded. Medication Orders allopurin ol 300 mg tablet 2023 024 [facility][id number], [address] [place] [address], [id number], 11/14/2023 12:04:17 testoster one cypionate 200 mg/mL intramusc ular oil [address] [facility] #32675, [address] [place] [address], [phone], 08/13/2023 12:25:37 omeprazol e 20 mg capsule,d elayed release 2023 024 [facility], [address] [place] [address], [id number], 08/13/2023 12:19:36 Flovent HFA 220 mcg/actua tion aerosol inhaler [address] [facility] #68905, [address] [place] [address], [id number], 05/30/2024 09:36:48 Combivent Respimat 20 mcg-100 mcg/actua tion solution for inhalatio n [address]23 [facility] #42115, [address], [place], [phone], 08/13/2023 12:20:27 irbesarta n [address] [facility] #84628, [address], [place], [id number], 08/13/2023 12:18:34 metoprolo l succinate ER 50 mg tablet,ex tended release [address] [facility] #39592, [address] [place] [address], [id number], 08/13/2023 12:18:33 Patient TargetsNo targets recorded. Patient Instructions Encounter Date Encounter Id Patient Instructions Last Modified By Organization Details Last Modified Time 08/13/2023 [id number] continue exercise Not availab le 08/13/2023 12:37:11 Your blood pressure goal: More than half of BP readings should be in the 125-145 range on the top and under 85 on the bottom Consider restarting ATORVASTATIN to prevent strokes and heart attacks given your prior TIA. Not available 08/13/2023 11:52:00 11/14/2023 [id number] continue exercise Not availab le 11/14/2023 09:25:10 Reason for Referral None Reported. Results Created Date Observation Date Name Description Value Unit Range Abnormal Flag Note LastModifiedBy Organization Detail LastModifiedTime 08/13/1908/13/2023 URIC ACID uric acid 5.5 mg/dL 3.5-7. 2 normal Not Available [facility] [address] [place], [address] 08/13/2023 21:07:34 08/13/19 24 08/13/2023 LIPID 2 cholesterol 251 mg/dL <200 high Not Available [facility] (Registration ) [address] [place] [address] [place], [address], 08/13/2023 21:07:34 08/13/19 24 08/13/2023 LIPID 2 triglyceride 53 mg/dL <150 Not Available [facility] (Registration ) [address] [place] [address] [place], [address], 08/13/2023 21:07:34 08/13/19 24 08/13/2023 LIPID 2 HDL cholesterol 93 mg/dL 40-60 Not Available [facility] (Registration ) [address] [place] [address] [place], [address], 08/13/2023 21:07:34 08/13/19 24 08/13/2023 LIPID 2 calculated LDL 148 mg/dL <100 high Natio nal Amy stero l Educa tion Progr am (NCEP -ATPI II) class ifica tions : Amy stero l <200 mg/dL Treva able Amy stero l 200-2 39 mg/dL Borde rline High Amy stero l >or=2 40 mg/dL High HDL <40 mg/dL Low HDL >or=6 0 mg/dL High LDL <100 mg/dL Optim al LDL 100-1 29 mg/dL Near Optim al/Ab ove Optim al LDL 130-1 59 mg/dL Borde rline High LDL 160-1 89 mg/dL High LDL >or=1 90 mg/dL Very High *The above refer ence range is for adult s 18 years or older . Not Available [facility] (Registration ) [address] [place] [address] [place], [address], 08/13/2023 21:07:34 08/13/19 24 08/13/2023 VITAM IN B12 vitamin B12 > 2000 pg/mL 193-98 6 high Not Available [facility] (Registration ) [address] [place] [address] [place], [address], 08/13/2023 21:07:34 08/13/19 24 08/14/2023 HEPAT ITIS C AB W RFLX HCV PCR hepatitis C Ab W rflx HCV PCR Negati ve negati ve Test perfo rmed or refer red by [facility] [address] [place] [address] Not Available [facility] (Registration ) [address] [place] [address] [place], [address], 08/15/2023 09:44:49 08/13/19 24 08/14/2023 HIV-1 /2 AG AB SCREE N HIV-1/2 Ag Ab screen Negati ve negati ve If acute HIV-1 infec tion is suspe cted in a high risk patie nt, submi t plasm a speci men for HIV-1 RNA quant itati on test. Fourt h Gener ation assay perfo rmed on the [facility]GCa ur XPT. Test perfo rmed or refer red by [facility] [address] [place] [address] Not Available [facility] (Registration ) [address] [place] [address] [place], [address], 08/15/2023 09:44:49 08/24/19 24 08/24/2023 HEMOG LOBIN A1C hemoglobin A1C 5.7 % <5.7 Refer ence Range s <5.7 Courtney l 5.7-6 .4% Predi abete s 6.5% or great er Diagn ostic for diabe leroy (if confi rmed) Refer ences : 1. Ameri can Diabe leroy Assoc iatio n. Clas sific ation and Diagn osis of Diabe leroy. Diabe leroy Care 2018 2(Sup pleme nt 1):S1 3-s28 . Not Available [facility] (Registration ) [address] [place] [address] [place], [address], 08/24/2023 16:29:47 08/24/19 24 08/31/2023 TESTO STERO NE, TOTAL FREE testosterone , free 12.6 NG/dL 3.67-1 3.9 ----- ----- ----- ----A DDITI ONAL INFOR MATIO N---- ----- ----- ----- This test was devel oped and its perfo rmanc e wanda cteri stics deter mined by [facility] in a jillian r consi stent with CLIA requi remen ts. This test has not been clear ed or appro adriana by the U.S. Food and Drug Admin istra tion. Not Available [address] [place], [address] 08/31/2023 16:48:15 08/24/19 24 08/31/2023 TESTO STERO NE, TOTAL FREE testosterone , total 430 NG/dL 240-95 0 ----- ----- ----- ----A DDITI ONAL INFOR MATIO N---- ----- ----- ----- Testi ng perfo rmed by [facility] Mass Spect romet ry (LC-M S/MS) . This test was devel oped and its perfo rmanc e wanda cteri stics deter mined by [facility] in a jillian r consi stent with CLIA requi remen ts. This test has not been clear ed or appro adriana by the U.S. Food and Drug Admin istra tion. Test Perfo rmed by: [facility] [address] [place] [address] Lab Direc tor: Shorty Pearce Ph.D. ; CLIA# [id number] Not Available [address] [place], [address] 08/31/2023 16:48:15 11/14/19 24 11/14/2023 LIPID 2 cholesterol 182 mg/dL <200 Not Available [facility] (Registration ) [address] [place] [address] [place], [address], 11/14/2023 15:55:24 11/14/19 24 11/14/2023 LIPID 2 triglyceride 66 mg/dL <150 Not Available [facility] (Registration ) [address] [place] [address] [place], [address], 11/14/2023 15:55:24 11/14/19 24 11/14/2023 LIPID 2 HDL cholesterol 102 mg/dL 40-60 Not Available [facility] (Registration ) [address] [place] [address] [place], [address], 11/14/2023 15:55:24 11/14/19 24 11/14/2023 LIPID 2 calculated LDL 67 mg/dL <100 Natio nal Amy stero l Educa tion Progr am (NCEP -ATPI II) class ifica tions : Amy stero l <200 mg/dL Treva able Amy stero l 200-2 39 mg/dL Borde rline High Amy stero l >or=2 40 mg/dL High HDL <40 mg/dL Low HDL >or=6 0 mg/dL High LDL <100 mg/dL Optim al LDL 100-1 29 mg/dL Near Optim al/Ab ove Optim al LDL 130-1 59 mg/dL Borde rline High LDL 160-1 89 mg/dL High LDL >or=1 90 mg/dL Very High *The above refer ence range is for adult s 18 years or older . Not Available [facility] (Registration ) [address] [place] [address] [place], [address], 11/14/2023 15:55:24 11/14/19 24 11/14/2023 VITAM IN B12 vitamin B12 1573 pg/mL 193-98 6 high Not Available [facility] (Registration ) [address] [place] [address] [place], [address], 11/14/2023 15:55:25 12/25/19 24 12/25/2023 COMPL ETE BLOOD COUNT W/DIF F WBC 6.07 10_3/ uL 4.4-10 .8 normal Not Available [facility] (Registration ) [address] [place] [address] [place], [address], 12/25/2023 16:08:39 12/25/19 24 12/25/2023 COMPL ETE BLOOD COUNT W/DIF F RBC 4.20 10_6/ uL 4.36-5 .78 low Not Available [facility] (Registration ) [address] [place] [address] [place], [address], 12/25/2023 16:08:39 12/25/19 24 12/25/2023 COMPL ETE BLOOD COUNT W/DIF F HGB 13.5 g/dL 13.5-1 7.5 normal Not Available [facility] (Registration ) [address] [place] [address] [place], [address], 12/25/2023 16:08:39 12/25/19 24 12/25/2023 COMPL ETE BLOOD COUNT W/DIF F HCT 39.0 % 40.0-5 0.0 low Not Available [facility] (Registration ) [address] [place] [address] [place], [address], 12/25/2023 16:08:39 12/25/19 24 12/25/2023 COMPL ETE BLOOD COUNT W/DIF F MCV 93 fL 80-95 normal Not Available [facility] (Registration ) [address] [place] [address] [place], [address], 12/25/2023 16:08:39 12/25/19 24 12/25/2023 COMPL ETE BLOOD COUNT W/DIF F MCH 32.1 pg 27.0-3 3.0 normal Not Available [facility] (Registration ) [address] [place] [address] [address] [place], [address], 12/25/2023 16:08:39 12/25/19 24 12/25/2023 COMPL ETE BLOOD COUNT W/DIF F MCHC 34.6 % 32.0-3 6.0 normal Not Available [facility] (Registration ) [address] [place] [address] [address] [place], [address], 12/25/2023 16:08:39 12/25/19 24 12/25/2023 COMPL ETE BLOOD COUNT W/DIF F RDW 13.5 % 11.8-1 4.1 normal Not Available [facility] (Registration ) [address] [place] [address] [place], [address], 12/25/2023 16:08:39 12/25/19 24 12/25/2023 COMPL ETE BLOOD COUNT W/DIF F platelet count 222 10_3/ uL 130-40 0 normal Not Available [facility] (Registration ) [address] [place] [address] [place], [address], 12/25/2023 16:08:39 12/25/19 24 12/25/2023 COMPL ETE BLOOD COUNT W/DIF F MPV 8.8 fL 8.0-11 .0 normal Not Available [facility] (Registration ) [address] [place] [address] [place], [address], 12/25/2023 16:08:39 12/25/19 24 12/25/2023 COMPL ETE BLOOD COUNT W/DIF F neutrophils % 46.8 % Not Available [facility] (Registration ) [address] [place] [address] [place], [address], 12/25/2023 16:08:39 12/25/19 24 12/25/2023 COMPL ETE BLOOD COUNT W/DIF F lymphocytes % 33.3 % Not Available [facility] (Registration ) [address] [place] [address] [place], [address], 12/25/2023 16:08:39 12/25/19 24 12/25/2023 COMPL ETE BLOOD COUNT W/DIF F monocytes % 16.6 % Not Available [facility] (Registration ) [address] [place] [address] [place], [address], 12/25/2023 16:08:39 12/25/19 24 12/25/2023 COMPL ETE BLOOD COUNT W/DIF F eosinophils % 2.0 % Not Available [facility] (Registration ) [address] [place] [address] [place], [address], 12/25/2023 16:08:39 12/25/19 24 12/25/2023 COMPL ETE BLOOD COUNT W/DIF F basophils % 1.0 % Not Available [facility] (Registration ) [address] [place] [address] [place], [address], 12/25/2023 16:08:39 12/25/19 24 12/25/2023 COMPL ETE BLOOD COUNT W/DIF F immature grans % 0.3 % Not Available [facility] (Registration ) [address] [place] [address] [place], [address], 12/25/2023 16:08:39 12/25/19 24 12/25/2023 COMPL ETE BLOOD COUNT W/DIF F nucleated RBC 0.0 % 0.0-0. 3 normal Not Available [facility] (Registration ) [address] [place] [address] [place], [address], 12/25/2023 16:08:39 12/25/19 24 12/25/2023 COMPL ETE BLOOD COUNT W/DIF F absolute neutrophil count 2.84 10_3/ uL 1.2-6. 7 normal Not Available [facility] (Registration ) [address] [place] [address] [place], [address], 12/25/2023 16:08:39 12/25/19 24 12/25/2023 COMPL ETE BLOOD COUNT W/DIF F absolute lymphocyte count 2.02 10_3/ uL 1.2-3. 4 normal Not Available [facility] (Registration ) [address] [place] [address] [place], [address], 12/25/2023 16:08:39 12/25/19 24 12/25/2023 COMPL ETE BLOOD COUNT W/DIF F absolute monocyte count 1.01 10_3/ uL 0.1-0. 8 high Not Available [facility] (Registration ) [address] [place] [address] [place], [address], 12/25/2023 16:08:39 12/25/19 24 12/25/2023 COMPL ETE BLOOD COUNT W/DIF F absolute eosinophil count 0.12 10_3/ uL 0.0-0. 7 normal Not Available [facility] (Registration ) [address] [facility] [place], [address], 12/25/2023 16:08:39 12/25/19 24 12/25/2023 COMPL ETE BLOOD COUNT W/DIF F absolute basophil count 0.06 10_3/ uL 0.0-0. 2 normal Not Available [facility] (Registration ) [address] [facility] [place], [address], 12/25/2023 16:08:39 Result Notes None recorded. Problems Name Problem SNOMED Code Status Onset Date Resolution Date Notes Provider Name and Address Organization Details Recorded Time Cervical radiculo blaze 24552108 Active 2023 s/p decompre ssion 07/[address], [place], [address], [facility] 11:21:14 Lumbar radiculo blaze 680017076 Completed 202308/13/2023 Removal Reason: resolved with surgery MD Keyla [address], [place], [address], [facility] 11:37:20 Essentia l hyperten lizzy 23020555 Active [address], [place], [address], [facility] 17:42:56 Chronic neck pain 43884106182 07 Completed 202308/13/[address], [place], [address], [facility] 12:15:27 Chronic hyponatr emia 48953478 Active 2023 133 in [address], [place], [address], [facility] 4 17:45:53 Hyperlip idemia 47209261 Active [address], [place], [address], [facility] 4 07:42:47 Overweig ht 703937131 Active [address], [place], [address], [facility] 4 07:42:58 Transien t cerebral ischemia 265463083 Active 07/[address], [place], [address], [facility] 4 10:32:59 Spinal stenosis of lumbar region 66193086 Completed 202308/13/[address], [place], [address], [facility] 4 11:42:38 Osteonec rosis of head of femur 663595241 Completed 201808/13/2023 s/p bilatera l replacem ent MD Keyla [address], [place], [address], [facility] 4 11:18:19 Pain of left knee region 36680143347 4109 Active [address], [place], [address], [facility] 4 11:44:36 Carpal tunnel syndrome 18808737 Active 2023 by recent EMG studies still residual , despite surgery in [address], [place], [address], [facility] 4 11:20:52 Abnormal testoste negrito 207870954 Active 2023 on replacem ent MD Keyla [address], [place], [address], [facility] 4 07:51:12 Mild intermit tent asthma 195046461 Active 2023 PFT with mild obstruct ion, no change post bronchod ilator MD Keyla [address], [place], [address], [facility] 4 07:47:07 Gout 93119977 Active [address], [place], [address], [facility] 4 07:47:14 Anemia 230057691 Completed 202308/11/[address], [place], [address], [facility] 4 16:11:58 Cobalami n deficien cy 958283621 Active 2023 B12 injectio ns MD Keyla [address], [place], [address] , [facility] 4 07:51:23 Posttrau matic stress disorder 21800276 Active [address], [place], [address], [facility] 4 10:30:48 Gastroes ophageal reflux disease 347645506 Active [address], [place], [address], [facility] 4 10:37:28 Chronic obstruct erasmo pulmonar y disease 99374785 Active [address], [place], [address], [facility] 11:39:17 History of Malignan t melanoma 032505388 Active [address] Don q6 months. 1 mm Breslow depth, July 2011 diagnose d in Connect[facility] cut, right inferior axillary vault area, with a negative sentinel lymph node biopsy MD Keyla [address], [place], [address], [facility] 12:17:10 Problem Notes None recorded. Procedures Surgical History Date Name Laterality Status Provider Name and Address Organization Details Recorded Time 07/26/19 24 excision of cervical intervertebral disc completed MD Keyla [address], [place], [address], [facility] 08/13/2023 10:57:34 08/22/19 23 laminectomy completed MD Keyla [address], [place], [address], [facility] 08/13/2023 10:30:23 05/07/20 19 total replacement of hip completed MD Keyla [address], [place], [address], [facility] 08/13/2023 11:18:00 06/04/19 17 excision of distal clavicle completed MD Keyla [address], [place], [address], [facility] 08/13/2023 10:35:53 08/03/19 06 Carpal tunnel surgery completed MD Keyla [address], [place], [address], [facility] 08/13/2023 11:19:28 08/03/18 93 decompression of ulnar nerve completed MD Keyla [address], [place], [address], [facility] 08/13/2023 11:20:05 06/04/18 92 complete repair of rotator cuff completed MD Keyla [address], [place], [address] 08/13/2023 10:36:57 06/04/18 91 lumbar spinal fusion completed MD Keyla [address], [facility] [address] [place] [address] 08/13/2023 10:33:59 06/04/18 84 repair of right inguinal hernia completed MD Keyla [address], [facility] [address] [place] [address] 08/13/2023 10:34:37 tonsillectomy completed MD Keyla [address] Dr, [address] 08/13/2023 10:33:11 excision of melanoma completed MD Keyla [address], [facility] [address] [place] [address] 08/13/2023 10:38:24 Imaging Results None recorded. Procedure Notes None recorded. Medical Equipment None Reported. Allergies Allergen ID Allergen Name Allergen Category Reaction Reaction Severity Criticality Documentation Date Start Date Code Code System Note Provider Name and Address Organization Details Recorded Time 87253 Effexor medicatio n Not available Not available low 05/30/2024 25657 2 RxNorm stiven KRUGER LPN [facility] 4 08:58:47 93773 acetamino phen / oxycodone medicatio n hallucina tions Not available high 05/30/2024 90280 3 RxNorm BIANCA KRUGER LPN [facility] 4 08:59:14 Medications Name Sig Start Date Stop Date Status Note LastModified by Organization Details LastModified Time atorvastati n 20 mg tablet Take 1 tablet every day by oral route at bedtime. 2023 active Not Available Not Available Not Avai lable tizanidine 2 mg tablet TAKE ONE TABLET BY MOUTH EVERY 6 HOURS NEEDED 08/12 completed Not Available Not Available Not Available metoprolol succinate ER 50 mg tablet,exte nded release 24 hr Take 1 tablet every day by oral route. 2023 active Not Available Not Available Not Avai lable allopurinol 100 mg tablet Take 1 tablet every day by oral route. 05/30 completed Not Available Not Available Not Available tramadol 50 mg tablet TAKE 1 [...] min (vit B-12) 1,000 mcg/mL injection solution Inject 1 mL every month by subcutane ous route. 2023 active Not Available Not Available Not Avai lable Flovent 110 mcg/actuati on aerosol inhaler Inhale 2 puffs twice a day by inhalatio n route. 08/12 completed Not Available Not Available Not Available gabapentin 300 mg capsule TAKE ONE CAPSULE BY MOUTH AT BEDTIME 08/12 completed Not Available Not Available Not Available omeprazole 20 mg capsule,del ayed release Take 1 capsule every day by oral route. 2023 active Not Available Not Available Not Avai lable irbesartan 75 mg tablet 08/12 completed Not Available Not Available Not Available folic acid 1 mg tablet Take 1 tablet every day by oral route. 2023 active Not Available Not Available Not Avai lable allopurinol 300 mg tablet Take 1 tablet every day by oral route. 2023 active Not Available Not Available Not Avai lable bisacodyl 5 mg tablet,arben yed release TAKE 1 TABLET BY MOUTH ONCE DIRECTED BY PRESCRIBE R FOR COLONOSCO PY PREP 05/30 completed Not Available Not Available Not Available mupirocin 2 % topical ointment 08/12 completed Not Available Not Available Not Available gabapentin 100 mg capsule TAKE ONE CAPSULE BY MOUTH EVERY MORNING; MAY INCREASE TO 2 CAPSULES IF NEEDED. 08/12 completed Not Available Not Available Not Available metoprolol succinate ER 25 mg tablet,exte nded release 24 hr 08/12 completed Not Available Not Available Not Available irbesartan 150 mg tablet Take 1 tablet every day by oral route. 2023 active Not Available Not Available Not Avai lable lorazepam 1 mg tablet TAKE ONE TABLET BY MOUTH ONCE DAILY NEEDED 07/06 completed Not Available Not Available Not Available testosteron e cypionate 200 mg/mL intramuscul ar oil Inject 1 mL every 2 weeks by intramusc ular route. active Not Available Not Available No t Available polyethylen e glycol 3350 17 gram/dose oral powder MIX NAD TAKE DIRECTED PER COLONOSCO PY INSTRUCTI ONS PROVIDED BY ORDERING PROVIDERS OFFICE 05/30 completed Not Available Not Available Not Available methylpredn isolone 4 mg tablets in a dose pack TAKE IT BY MOUTH FOR 6 DAYS DIRECTED 08/12 completed Not Available Not Available Not Available fluticasone propionate 50 mcg/actuati on nasal spray,suspe nsion active Not Available Not Available Not Available diazepam 5 mg tablet TAKE 1 TABLET BY MOUTH EVERY 6 HOURS NEEDED FOR ANXIETY 07/06 completed Not Available Not Available Not Available Flovent HFA 220 mcg/actuati on aerosol inhaler Inhale 2 puffs twice a day by inhalatio n route. 05/30 completed Not Available Not Available Not Available [...] 40 mcg/actuati on HFA breath activated aerosol Inhale 2 puffs twice a day by inhalatio n route. 2023 active Not Available Not Available Not Avai lable fluticasone prop 113 mcg/actuati on breath activated [...] Address Organization Details Last Updated DateTime 4 84266.8 1 g 97.8 [degF] 96 % 96 % 16 /min 74 /min 140 mm[Hg] 86 mm[Hg] BIANCA KRUGER LPN [facility] 4 10:50:12 Date Recorded Body mass index (BMI) Body height Provider Name and Address Organization Details Last Updated DateTime 08/13/2023 26.1 kg/m2 177.8 cm LIZETT BELLE MD [address], [place], [address] 08/13/2023 11:45:06 Date Recorded Body height Body mass index (BMI) Body weight Body temperature Heart rate Respiratory rate Systolic blood pressure Diastolic blood pressure Provider Name and Address Organization Details Last Updated DateTime 4 177.8 cm 26.5 kg/m2 63168.5 9 g 98 [degF] 76 /min 16 /min 132 mm[Hg] 90 mm[Hg] BIANCA KRUGER LPN [facility] 4 08:53:59 Date Recorded Body height Body mass index (BMI) Body weight Body temperature Oxygen saturation Oxygen saturation in Arterial blood by Pulse oximetry Heart rate Respiratory rate Systolic blood pressure Diastolic blood pressure Provider Name and Address Organization Details Last Updated DateTime 4 171.45 cm 28.2 kg/m2 74413.4 g 97.9 [degF] 96 % 96 % 78 /min 18 /min 132 mm[Hg] 86 mm[Hg] BIANCA KRUGER LPN [facility] 4 09:02:23 Social History Question Answer Notes LastModified by Organizat ion Details LastModified Time Tobacco Smoking Status Never Smoker BIANCA KRUGER LPN null, [facility] 08/13/2023 10:48:49 Would You Say That, In General, Your Health Is Very Good Information not available 05/30/2024 How Often Does Anyone, Including Family, Physically [...] available 08/13/2023 Date Of Most Recent SBINS 05/30/2024 Information not available 05/30/2024 What Was The Date Of Your Most Recent Tobacco Screening? 05/30/2024 Information n ot available 05/30/2024 Has Tobacco Cessation Counseling Been Provided? No Information not available 08/13/2023 Do You Or Have You Ever Used Any Other Forms Of Tobacco Or Nicotine? No Information not available 08/13/2023 Sex: Unknown Functional Status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
--- OUTSIDE RECORDS SUMMARY | 2024-05-30 10:59 | XMS_ITS | Encounter Summary ---
[place] [address] Care Team Providers Care Specialist Field Engineer Name Role Phone Didier Romero MD Primary Care Provider + Reason for Visit * Reason Comments Follow-up Skin Check Encounter Details Date Type Department Care Team (Late st Contact Info) Description 07/05/2023 8:15 AM EST Office Visit Dermatology at [address] [phone] Jake Galvez MD [address] [place] [address], [facility] [address] History of malignant melanoma; AK (actinic keratosis); [...] mm Breslow depth, July 2011 diagnosed in [place], rightinferior axillary vault area, with a negative [...] skin lesions of concern. Patient lives in [facility]. Physical examination reveals a pleasant 63-year-old gentleman [...] 8:45 AM EST Office Visit Dermatology at [address] [phone] Jake aGlvez MD [address], [place] [address] documented as of this encounter Visit Diagnoses Diagnosis History of malignant melanoma Personal history of malignant melanoma of skin AK (actinic keratosis) Actinic keratosis History of SCC (squamous cell carcinoma) of skin Personal history of other malignant neoplasm of skin documented in this encounter Care Teams Specialist Field Engineer Relationship Specialty Start Date End Date Didier Romero MD [address] [place] [address] PCP - General Family Medicine 01/11/17 01/02/24 documented as of this encounter
--- OUTSIDE RECORDS SUMMARY | 2024-05-30 11:00 | XMS_ITS | Encounter Summary ---
[place] [address] Care Team Providers Care Perishable Freight Inspector Name Role Phone Didier Romero MD Primary Care Provider + Encounter Details Date Type Department Care Team (Late st Contact Info) Description 06/27/2021 1:45 PM EST Office Visit Dermatology at [address] [phone] Jake Galvez MD [address] [facility], [place] A DERMATOLOGY [place], [place] [id number] AK (actinic keratosis); History of SCC (squamous [...] Breslow depth, July 2011 diagnosed in [place], right inferior axillary vault area, with a [...] 8:45 AM EST Office Visit Dermatology at [address] [phone] Jake Galvez MD [address], [place] [address] documented as of this encounter Visit Diagnoses Diagnosis AK (actinic keratosis) Actinic keratosis History of SCC (squamous cell carcinoma) of skin Personal history of other malignant neoplasm of skin History of malignant melanoma Personal history of malignant melanoma of skin Eczema, unspecified type documented in this encounter Care Teams Perishable Freight Inspector Relationship Specialty Start Date End Date Didier Romero MD [facility] [place] [address] PCP - General Family Medicine 01/11/17 01/02/24 documented as of this encounter
--- OUTSIDE RECORDS SUMMARY | 2024-05-30 11:00 | XMS_ITS | Encounter Summary ---
[place] [address] Care Team Providers Care Mammography Tech Name Role Phone Didier Romero MD Primary Care Provider + Encounter Details Date Type Department Care Team (Late st Contact Info) Description 09/19/2021 Telephone [facility] [place] [address] Kayley Mckeon, RN Social History [...] PM EDT Contact made with patient or exhibit display representative as identified in contacts 1. Patient instructed to arrive at 07:30 on 09/26/21 with their driver examiner for their cervical RFA procedure. Please plan [...] the patient has been directed to the [facility] hotline for testing prior to their procedure. (route telephone note to: [facility] covid 19 nurse triage with routing [...] 8:45 AM EST Office Visit Dermatology at [place] [address] [facility] [place] [phone] Jake Galvez MD [address], [place] [address] documented as of this encounter Visit Diagnoses Not on filedocumented in this encounter Care Teams Mammography Tech Relationship Specialty Start Date End Date Didier Romero MD [address] [place] [address] PCP - General Family Medicine 01/11/17 01/02/24 documented as of this encounter
--- OUTSIDE RECORDS SUMMARY | 2024-05-30 11:00 | XMS_ITS | Encounter Summary ---
[place] [address] Care Team Providers Care Esthetics Instructor Name Role Phone Didier Romero MD Primary Care Provider + Reason for Referral * Consultation (Routine) - Closed Specialty Diagnoses / Procedures Referred By Contac t Referred To Contact [facility] Diagnoses Cervicalgia Neck pain/? imaging Didier Romero MD [address] [place] [address] [facility] [place] [address] Referral ID Status Reason Start Date Expiration Date V isits Requested Visits Authorized [id number] Closed Evaluate and Treat 04/26/2022 04/26/2023 1 1 Encounter Details Date Type Department Care Team (Late st Contact Info) Description 04/26/2022 Transcribe Orders eDH Incoming Referrals [phone] Didier Romero MD [address] [place] [address] Cervicalgia Social History Tobacco Use [...] 8:45 AM EST Office Visit Dermatology at [place] [address] [facility] [place] [address] Jake Galvez MD [address], [place] [address] Scheduled Referrals Name Type Priority Associated Diagnoses Orde r Schedule Referral to [facility] and Spine Center (Internal only) Outpatient Referral Routine Cervicalgia Ordered: 04/26/2022 documented as of this encounter Visit Diagnoses Diagnosis Cervicalgia documented in this encounter Care Teams Esthetics Instructor Relationship Specialty Start Date End Date Didier Romero MD [address] [place] [address] PCP - General Family Medicine 01/11/17 01/02/24 documented as of this encounter
--- OUTSIDE RECORDS SUMMARY | 2024-05-30 11:00 | XMS_ITS | Encounter Summary ---
[place] [address] Care Team Providers Care Rug Backing Stenciler Name Role Phone Didier Romero MD Primary Care Provider + Encounter Details Date Type Department Care Team (Late st Contact Info) Description 07/13/2021 Telephone [facility] [place] [address] Kenyatta Solorzano, RN Social History [...] 8:45 AM EST Office Visit Dermatology at [place] [address] [facility] [place] [address] Jake Galvez MD [address], [place] [address] documented as of this encounter Visit Diagnoses Not on filedocumented in this encounter Care Teams Rug Backing Stenciler Relationship Specialty Start Date End Date Didier Romero MD [address] [place] [address] PCP - General Family Medicine 01/11/17 01/02/24 documented as of this encounter
--- OUTSIDE RECORDS SUMMARY | 2024-05-30 11:00 | XMS_ITS | Encounter Summary ---
[place] [address] Care Team Providers Care Refractory Repairer Name Role Phone Didier Romero MD Primary Care Provider + Encounter Details Date Type Department Care Team (Late st Contact Info) Description 08/04/2022 Telephone Dermatology at [address] [phone] Ana Hui RN Social History [...] 8:45 AM EST Office Visit Dermatology at [place] [address] [facility] [place] [phone] Jake Galvez MD [address], [address] [place] [address] documented as of this encounter Visit Diagnoses Not on filedocumented in this encounter Care Teams Refractory Repairer Relationship Specialty Start Date End Date Didier Romero MD [address] [place] [address] PCP - General Family Medicine 01/11/17 01/02/24 documented as of this encounter
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
--- OUTSIDE RECORDS SUMMARY | 2024-05-30 11:00 | XMS_ITS | Encounter Summary ---
Author Organization [facility] [place] [address] Care Team Providers Care Undercutter Name Role Phone Didier Romero MD Primary [...] Expiration Date Visits Re quested Visits Authorized [id number] 1 1 Encounter Details Date Type Department Care Team (Late st Contact Info) Description 08/03/2021 8:00 AM EST - 08/03/2021 8:45 AM EST [place] [phone] Emerson Chand MD [facility] [place] [address] DESTRUCT BY LYTIC AGENT, FACET NERVE(S), W/IMAGING; [...] mg into the muscle every 14 days. BD SafetyGlide Needle 25 x 5/8 Needle EVERY 2 WEEKS WITH TESTOSTERONE 07/26/2019 BD SafetyGlide Needle 25 gauge x 1 Needle 04/09/2019 cyanocobalamin, vitamin B-12, 1,000 mcg/mL Solution Once a Month 0 12/13/2016 FLOVENT HFA 220 mcg/actuation HFA Aerosol Inhaler as needed. 11/03/2016 folic acid (FOLVITE) 1 mg Tablet daily. 08/10/2015 omeprazole (PRILOSEC) 20 mg capsule Take 20 mg by mouth daily. NELLIE'S WORT ORAL Take by mouth. 01/01 UNKNOWN TO PATIENTIndications:Concetta-kavon huff Indications: L-theanine 06/2023 flu vac [id number] 36mos up,PF, (Afluria Qd ,3yr up,,PF,) 60 mcg (15 mcg x 4)/0.5 mL Syringe Afluria Qd (36 mos up)(PF)60 mcg (15 mcg x4)/0.5 mL IM syringe ADM 0.5ML IM UTD 01/03/2024 irbesartan (AVAPRO) 75 mg Tablet daily. 07/09/2019 01/03/2024 meTOPROLOL succinate (TOPROL-XL) 25 mg Tablet Sustained Release 24 hr daily. 08/10/2015 01/03/2024 allopurinol (ZYLOPRIM) 300 mg tablet Take 300 mg by mouth daily. 01/01/2023 aspirin 81 mg EC tablet Take 81 mg by mouth daily. 01/03/2024 albuterol-ipratropium (COMBIVENT) 18-103 mcg/actuation Aerosol Inhale 2 puffs into the lungs every 6 hours as needed. 01/03/2024 documented as of this encounter H&P Notes [...] Carlos Enrique Arroyo MD Pain Medicine Fellow [address] [address] / [facility] CC: Didier Romero MD [address] [place] [address] documented in this encounter Miscellaneous Notes * Op Note - Emerson Chand MD - 08/03/2021 8:32 AM EST Pain Management Operative Note Patient Name: Grayson Dodd III : [id number] MR#: [id number] Case Date: 08/03/2021 Surgeon: Surgeon(s) and Role: [...] to be denervated from today's treatment. Mr. Dodd'amanda vital signs were stable throughout the procedure [...] Attending [facility]ician [facility] [place] [address] / CC: Didier Romero MD [facility] [place] [address] documented in this encounter Plan of Treatment Upcoming Encounters Date Type Department Care Team (Late st Contact Info) Description 07/08/2024 8:45 AM EST Office Visit Dermatology at [address] [place] [address] Jake Galvez MD [address], [place] [address] documented as of this encounter Procedures Procedure [...] RFA) documented in this encounter Care Teams Undercutter Relationship Specialty Start Date End Date Didier Romero MD [address] [place] [address] PCP - General Family Medicine 01/11/17 01/02/24 documented as of this encounter
--- OUTSIDE RECORDS SUMMARY | 2024-05-30 11:00 | XMS_ITS | Encounter Summary ---
Author Organization Formerly [facility] [place] [address] Care Team Providers Care Content Director Name Role Phone Didier Romero MD Primary Care Provider + Reason for Referral * Consultation (Routine) - Closed Specialty Diagnoses / Procedures Referred By Contac t Referred To Contact Pain and Spine Center Diagnoses Left lumbar radiculopathy Spondylolisthesis at L5-S1 level Chandler Clark MD [facility] [place] [address] Emerson Chand MD [facility] [place] [address] Referral ID Status Reason Start Date Expiration Date V isits Requested Visits Authorized [id number] Closed Evaluate and Treat 05/03/2021 05/03/2022 3 3 Reason for Visit * Reason Comments Follow-up Encounter Details Date Type Department Care Team (Late st Contact Info) Description 05/03/2021 9:20 AM EST Office Visit [facility] [place] [address] Chandler Clark MD [facility] [place] [address] Left lumbar radiculopathy; Spondylolisthesis at L5-S1 level [...] Chandler Clark MD MS Geoff Lanier MD [facility] [place] [address] Didier Romero MD [address] [place] [address] / [facility] [phone] Dear Colleagues, I had the pleasure of seeing this patient at the [facility] for surgical evaluation. At the pleasure of [...] spinal cord stimulator. Sincerely, Chandler Clark MD [place] [facility] Box Turner - Orthopedic Spine Surgery Garnetter - Department of Orthopedic Surgery / Academics and Research Pet Stylist - [facility] 05/03/2021 Spine Center Response Trends Patient-reported scores: myD-H Spine Questionnaire responses 05/18/2020 Neck Disability Index (Range: 0-100) 36 (Moderate disability) PROMIS-10 Physical Health Score 42.3 PROMIS-10 Mental Health Score 43.5 documented in this encounter Plan of Treatment Upcoming Encounters Date Type Department Care Team (Late st Contact Info) Description 07/08/2024 8:45 AM EST Office Visit Dermatology at [place] [address] [place] [address] Jake Galvez MD [address], [place] [address] Scheduled Referrals Name Type Priority Associated Diagnoses Orde r Schedule Referral to Pain and Spine Center (Internal only) Outpatient Referral Routine Left lumbar radiculopathy Spondylolisthesis at L5-S1 level Ordered: 05/03/2021 documented as of this encounter Visit Diagnoses Diagnosis Left lumbar radiculopathy Thoracic or lumbosacral neuritis or radiculitis, unspecified Spondylolisthesis at L5-S1 level Congenital spondylolisthesis documented in this encounter Care Teams Content Director Relationship Specialty Start Date End Date Didier Romero MD [address] [place] [address] PCP - General Family Medicine 01/11/17 01/02/24 documented as of this encounter
--- OUTSIDE RECORDS SUMMARY | 2024-05-30 11:00 | XMS_ITS | Encounter Summary ---
[place] [address] Care Team Providers Care White Sugar Supervisor Name Role Phone Didier Romero MD Primary Care Provider + Reason for Visit * Reason Comments Back Pain * Consultation (Routine) - Closed Specialty Diagnoses / Procedures Referred By Contac t Referred To Contact Pain and Spine Center Diagnoses Left lumbar radiculopathy Lumbar spondylosis Geoff Lanier MD [facility] [address] PHYSICAL [place] [address] [facility] [place] [address] Referral ID Status Reason Start Date Expiration Date V isits Requested Visits Authorized [id number] Closed Surgical 02/24/2021 02/24/2022 3 3 Encounter Details Date Type Department Care Team (Latest Contact Info) Description 03/30/2021 9:40 AM EDT Office Visit [place] [address] Chandler Clark MD [facility] [place] [place] [address] Radiculopathy of lumbosacral region Social [...] Pain and Spine MD Geoff Morton MD [facility] [place] [address] Didier Romero MD [address] [place] [address] / [facility] [phone] Dear Colleagues, I had the pleasure of seeing this patient at the [facility] @ [facility] for surgical evaluation. 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 ??? flu vac [id number] 36mos up,PF, (Afluria Qd 2019-,3yr up,,PF,) 60 [...] and Spine MD MS Geoff Jurado [place] [facility] [place] [address] Didier Romero MD [address] [place] [address] / [place] [address] Dear Colleagues, I had the pleasure of seeing this patient at the [facility] @ [facility] for surgical evaluation. Patient seen in conjunction [...] MD [place] [facility] Metal Casket Assembler - Orthopedic Spine Surgery Railroad Firer - Department of Orthopedic Surgery / Academics and Research Executive Sous Chef - [facility] 04/04/2021 Spine Center Response Trends Patient-reported scores: myD-H Spine Questionnaire responses 05/18/2020 Neck Disability Index (Range: 0-100) 36 (Moderate disability) PROMIS-10 Physical Health Score 42.3 PROMIS-10 Mental Health Score 43.5 documented in this encounter Plan of Treatment Upcoming Encounters Date Type Department Care Team (Late st Contact Info) Description 07/08/2024 8:45 AM EST Office Visit Dermatology at [address] [place] [address] Jake Galvez MD [address] [facility], [place] [address] documented as of this encounter Visit Diagnoses Diagnosis Radiculopathy of lumbosacral region Thoracic or lumbosacral neuritis or radiculitis, unspecified documented in this encounter Care Teams White Sugar Supervisor Relationship Specialty Start Date End Date Didier Romero MD [address] [place] [address] PCP - General Family Medicine 01/11/17 01/02/24 documented as of this encounter
--- OUTSIDE RECORDS SUMMARY | 2024-05-30 11:00 | XMS_ITS | Encounter Summary ---
Author Organization [facility] [place] [address] Care Team Providers Care Swatcher Name Role Phone Didier Romero MD Primary [...] Expiration Date Visits Re quested Visits Authorized [id number] 1 1 Encounter Details Date Type Department Care Team (Late st Contact Info) Description 11/07/2021 8:00 AM EDT Ancillary Procedure [place] [address] Emerson Chand MD [facility] [address] PAIN [place] [address] Social History Tobacco Use Types Packs/Day Years [...] 8:45 AM EST Office Visit Dermatology at [place] [address] [place] [address] Jake Galvez MD [address], [place] [address] documented as of this encounter Procedures Procedure [...] FILM LIBRARY ORD ERABLES Performing Organization Address City/State/[facility] Co de Phone Number [place], [place] documented in this encounter Visit Diagnoses Not on filedocumented in this encounter Care Teams Swatcher Relationship Specialty Start Date End Date Didier Romero MD [address] [place] [address] PCP - General Family Medicine 01/11/17 01/02/24 documented as of this encounter
--- OUTSIDE RECORDS SUMMARY | 2024-05-30 11:00 | XMS_ITS | Encounter Summary ---
Author Organization [facility] Address [facility] [place] [address] Care Team Providers Care Pen Tester Name Role Phone Didier Romero MD Primary [...] Expiration Date Visits Re quested Visits Authorized [id number] 1 1 Encounter Details Date Type Department Care Team (Latest Contact Info) Description 11/07/2021 7:29 AM EDT - 11/07/2021 9:22 AM EDT Hospital [place] [phone] Emerson Chand MD [facility] [place] [address] Cervical spondylosis; Cervicalgia Discharge Disposition: Home Social [...] 20 mg by mouth nightly. 10/22/2021 01/01/2023 isosorbide mononitrate CR (Imdur) 30 mg Tablet Sustained Release 24 hr Take 30 mg by mouth daily. 10/22/2021 01/03/2024 venlafaxine XR (Effexor-XR) 75 mg Capsule, Sust. Release 24 hr Take 75 mg by mouth daily. TAKE WITH FOOD 10/24/2021 07/05/2023 NELLIE'S WORT ORAL Take by mouth. 01/01 UNKNOWN TO PATIENTIndications:L-t refugio Indications: L-theanine 06/2023 flu vac [id number] 36mos up,PF, (Afluria Qd 2019-,3yr up,,PF,) 60 [...] - 11/07/2021 6:36 AM EDT Patient Name: rGayson Dodd III Patient Age: 61 y.o. Birthdate: 1960 Admit date: 11/07/2021 Attending Physician: Emerson Chand MD PREPROCEDURE HISTORY AND PHYSICAL Date of Visit: November 07, 2021 Chief Complaint: Left Neck Pain HPI: Subjective rGayson Dodd III is a 61 y.o. male [...] Injection SI Joint 10/11/2021 Dannie Bailon MD [facility] RAD CT SCAN ??? HERNIA REPAIR ??? PRO DSTR PARAVERTEBRAL FCT JNT NRVES CERVICAL OR THORACIC ADDL Right 08/03/2021 DESTRUCT BY LYTIC AGENT, FACET NERVE(S), W/IMAGING; CX OR THX, EA ADD (WRVU 1.32) performed by Emerson Chand MD at [facility] PAIN MGMT MSO ??? PRO DSTR PARAVERTEBRAL FCT JNT NRVES CERVICAL OR THORACIC SINGLE Right 08/03/2021 DESTRUCT BY LYTIC AGNT, FACET JT NERVE(S), W/IMAGING; CX OR THX, SNGL (WRVU 3.84) performed by Emerson Chand MD at [facility] PAIN MGMT MSO ??? ROTATOR [...] themuscle every 14 days. ??? flu vac [id number] 36mos up,PF, (Afluria Qd 2019-,3yr up,,PF,) 60 mcg (15 mcg x 4)/0.5 mL Syringe Afluria Qd 2020-21 (36 mos up)(PF)60 mcg [...] proceed. Yaw Contreras MD Pain Medicine Fellow [address] [address] / [facility] documented in this encounter Miscellaneous Notes * Op Note - Robbin Parrish - 11/07/2021 8:23 AM EDT Pain Management Operative Note Patient Name: Grayson Dodd III : [id number] MR#: [id number] Case Date: 11/07/2021 Surgeon: Surgeon(s) and Role: [...] PGY5 Pain Fellow CC: Didier Romero MD [address] [place] [address] Associated attestation - Emerson Chand MD - [...] 8:45 AM EST Office Visit Dermatology at [place] [address] [facility] [place] [address] Jake Galvez MD [address], [place] [address] documented as of this encounter Procedures Procedure [...] RFA) documented in this encounter Care Teams Pen Tester Relationship Specialty Start Date End Date Didier Romero MD [address] [place] [address] PCP - General Family Medicine 01/11/17 01/02/24 documented as of this encounter
--- OUTSIDE RECORDS SUMMARY | 2024-05-30 11:00 | XMS_ITS | Encounter Summary ---
Author Organization Formerly [facility] [place] [address] Care Team Providers Care Senior Oracle Adf Developer Name Role Phone Didier Romero MD Primary Care Provider + Encounter Details Date Type Department Care Team (Late st Contact Info) Description 04/15/2021 Ancillary Procedure Radiology Library at [facility] [place] [phone] Didier Romero MD [facility] [place] [place] [address] Social History Tobacco Use Types Packs/Day Years [...] 8:45 AM EST Office Visit Dermatology at [place] [address] [place] [place] [address] Jake Galvez MD [address], [place] [address] documented as of this encounter Procedures Procedure Name Priority Date/Time Associated Diagnosis Comments FILM LIBRARY STORAGE ONLY CT SPINE Routine 04/15/2021 12:00 AM EST documented in this encounter Results * Film Library- Storage Only CT Spine (04/15/2021 12:00 AM EST) Narrative KIMI - 04/19/2021 12:40 PM EST This exam is auto-finalizing. It's purpose is for storage only. Didier Romero MD IMG FILM LIBRARY ORDERABLES Performing Organization Address City/State/[facility] Co de Phone Number [place], [place] documented in this encounter Visit Diagnoses Not on filedocumented in this encounter Care Teams Senior Oracle Adf Developer Relationship Specialty Start Date End Date Didier Romero MD [address] [place] [address] PCP - General Family Medicine 01/11/17 01/02/24 documented as of this encounter
--- OUTSIDE RECORDS SUMMARY | 2024-05-30 11:00 | XMS_ITS | Encounter Summary ---
[place] [address] Care Team Providers Care Net Solutions Architect Name Role Phone Didier Romero MD Primary Care Provider + Reason for Visit * Reason Comments Suture / Staple Removal Encounter Details Date Type Department Care Team (Late st Contact Info) Description 07/28/2022 9:00 AM EST Office Visit Dermatology at [address] [address] Jake Galvez MD [address] [place] [address], [facility] [place] [address] Visit for suture removal Social History Tobacco [...] melanoma maligna type. 1. Sutures removed 2. May DC wound care instructions 3. Return to clinic in another 6 months for repeat skin checkup. CC: Didier Romero MD documented in this encounter Plan of Treatment Upcoming Encounters Date Type Department Care Team (Late st Contact Info) Description 07/08/2024 8:45 AM EST Office Visit Dermatology at [place] [address] [place] [address] Jake Galvez MD [address], [place] [address] documented as of this encounter Visit Diagnoses Diagnosis Visit for suture removal Encounter for removal of sutures documented in this encounter Care Teams Net Solutions Architect Relationship Specialty Start Date End Date Didier Romero MD [address] [place] [address] PCP - General Family Medicine 01/11/17 01/02/24 documented as of this encounter
--- OUTSIDE RECORDS SUMMARY | 2024-05-30 11:00 | XMS_ITS | Encounter Summary ---
Author Organization [facility] Address [facility] [place] [address] Care Team Providers Care Freelance Operator Name Role Phone Didier Romero MD [...] Expiration Date Visits Re quested Visits Authorized [id number] 1 1 Encounter Details Date Type Department Care Team (Latest Contact Info) Description 08/03/2021 7:23 AM EST - 08/03/2021 9:28 AM [facility] Hospital [place] [phone] Emerson Chand MD [facility] [place] [address] Cervical spondylosis; Cervicalgia Discharge Disposition: Home Social [...] capsule Take 20 mg by mouth daily. [employer] WORT ORAL Take by mouth. 01/01 UNKNOWN TO PATIENTIndications:L-t refugio Indications: L-theanine 06/2023 flu vac [id number] 36mos up,PF, (Afluria Qd ,3yr up,,PF,) 60 [...] Carlos Enrique Arroyo MD Pain Medicine Fellow [address] [address] / [facility] CC: Didier Romero MD [address] [place] [address] documented in this encounter Miscellaneous Notes * Op Note - Emerson Chand MD - 08/03/2021 8:32 AM EST Pain Management Operative Note Patient Name: Grayson Dodd III : [id number] MR#: [id number] Case Date: 08/03/2021 Surgeon: Surgeon(s) and Role: [...] plans and appointments were discussed with Grayson Garayloida GARCIA. Post procedure instruction was given as [...] Attending Physician [facility] [place] [address] / CC: Didier Romreo MD [address] [place] [address] documented in this encounter Plan of Treatment Upcoming Encounters Date Type Department Care Team (Late st Contact Info) Description 07/08/2024 8:45 AM EST Office Visit Dermatology at [address] [phone] Jake Galvez MD [address] [facility], [place] [address] documented as of this encounter Procedures Procedure [...] RFA) documented in this encounter Care Teams Freelance Operator Relationship Specialty Start Date End Date Didier Romero MD [address] [place] [address] PCP - General Family Medicine 01/11/17 01/02/24 documented as of this encounter
--- OUTSIDE RECORDS SUMMARY | 2024-05-30 11:00 | XMS_ITS | Encounter Summary ---
Author Organization Formerly [facility] [place] [address] Care Team Providers Care Customer Advisor Specialist Name Role Phone Didier Romero MD [...] Expiration Date Visits Re quested Visits Authorized [id number] 1 1 Encounter Details Date Type Department Care Team (Late st Contact Info) Description 08/03/2021 8:00 AM EST Ancillary [place] [address] Emerson Chand MD [facility] [place] [address] Social History Tobacco Use Types Packs/Day Years [...] 8:45 AM EST Office Visit Dermatology at [place] [address] [place] [address] Jake Galvez MD [address], [place] [address] documented as of this encounter Procedures Procedure Name Priority Date/Time Associated Diagnosis Comments FILM LIBRARY STORAGE ONLY PAIN CLINIC C ARM Routine 08/03/2021 2:07 PM EST documented in this encounter Results * Film Library- Storage Only pain Clinic C-Arm (08/03/2021 2:07 PM EST) Narrative RAD - 08/03/2021 2:07 PM EST See PACS for result report. Emerson Chand MD G FILM LIBRARY ORD ERABLES Performing Organization Address City/State/[facility] Co de Phone Number [place], [place] documented in this encounter Visit Diagnoses Not on filedocumented in this encounter Care Teams Customer Advisor Specialist Relationship Specialty Start Date End Date Didier Romero MD [address] [place] [address] PCP - General Family Medicine 01/11/17 01/02/24 documented as of this encounter
--- OUTSIDE RECORDS SUMMARY | 2024-05-30 11:00 | XMS_ITS | Encounter Summary ---
[place] [address] Care Team Providers Care Coffee Grower Name Role Phone Didier Romero MD Primary Care Provider + Encounter Details Date Type Department Care Team (Late st Contact Info) Description 11/04/2021 Telephone [place] [phone] Dominique Leal RN Social History Tobacco Use [...] AM EDT Contact made with patient or cash application representative as identified in contacts 1. Patient instructed to arrive at 0730 on 11/07/21 with their driver starting gate for their CRFA procedure. Please plan to [...] the patient has been directed to the [facility] hotline for testing prior to their procedure. (route telephone note to: [facility] covid 19 nurse triage with routing comment [...] 8:45 AM EST Office Visit Dermatology at [place] [address] [place] [phone] Jake Galvez MD [address], [place] [address] documented as of this encounter Visit Diagnoses Not on filedocumented in this encounter Care Teams Coffee Grower Relationship Specialty Start Date End Date Didier Romero MD [address] [place] [address] PCP - General Family Medicine 01/11/17 01/02/24 documented as of this encounter
--- OUTSIDE RECORDS SUMMARY | 2024-05-30 11:00 | XMS_ITS | Encounter Summary ---
Author Organization [facility] Address [facility] [place] [address] Care Team Providers Care Library Director Name Role Phone Didier Romero MD Primary Care Provider + Reason for Visit * Reason Comments Follow-up RFA Encounter Details Date Type Department Care Team (Latest Contact Info) Description 08/31/2021 3:00 PM EDT TH Visit (TeleHealth) [place] [address] Emerson Chand MD [facility] [place] [address] Cervical spondylosis (Primary Dx); Cervicalgia Social History [...] clinic office visit. The provider is in [facility], [place], [place], speaking with the patient a the patient's location/addressduring the visit: [address] [facility] [address] [X] Consent: I introduced and identified myself, received verbal consent from the patient to proceed with this video visit and made the patient aware that the same confidentiality and telephone information supervisor practices apply. [X] I verified the patient's [...] information in the patient's medical record at [facility](EPIC), including relevant provider notes, laboratory work, and [...] 1.32) performed by Emerson Chand MD at [facility]IN [facility] ??? PRO DSTR PARAVERTEBRAL FCT JNT NRVES CERVICAL OR THORACIC SINGLE Right 08/03/2021 DESTRUCT BY LYTIC AGNT, FACET JT NERVE(S), W/IMAGING; CX OR THX, SNGL (WRVU 3.84) performed by Emerson Chand MD at [facility] ??? ROTATOR CUFF [...] daily., Disp: , Rfl: ??? flu vac [id number] 36mos up,PF, (Afluria Qd 2019-,3yr up,,PF,) 60 [...] Total time spent 20 minutes by telephone. [facility] CONSENT FOR TELEHEALTH Telemedicine (Video) Appointment Although not required in [place], [place] has a telemedicine consent requirement. We are working on an automated process to obtain this. I obtained the patient's consent to receiving health care services at [facility] through telemedicine. We discussed the opportunities and [...] form is available for patient's review in [facility]'s patient portal, [facility]. Opportunities include: improved access to medical care; limiting spread of COVID virus; increased patient convenience Limitations include: technical difficulties; need for a subsequent in-person visit due to transmission quality problems or need for physical examination not possible over video. Emerson Chand MD Attending [facility] [place] [address] / CC: Didier Romero MD [address] [place] [address] documented in this encounter Plan of Treatment Upcoming Encounters Date Type Department Care Team (Late st Contact Info) Description 07/08/2024 8:45 AM EST Office Visit Dermatology at [place] [address] [place] [address] Jake Galvez MD [address], [place] [address] documented as of this encounter Visit Diagnoses Diagnosis Cervical spondylosis- Primary Cervical spondylosis without myelopathy Cervicalgia documented in this encounter Care Teams Library Director Relationship Specialty Start Date End Date Didier Romero MD [facility] [place] [address] PCP - General Family Medicine 01/11/17 01/02/24 documented as of this encounter
--- OUTSIDE RECORDS SUMMARY | 2024-05-30 11:00 | XMS_ITS | Encounter Summary ---
Author Organization [facility] [place] [address] Care Team Providers Care Brace Maker Name Role Phone Didier Romero MD Primary Care Provider + Encounter Details Date Type Department Care Team (Late st Contact Info) Description 01/10/2022 5:00 PM EDT Ancillary Procedure Radiology Library [place] [address] Didier Romero MD Formerly named [facility] [place] [address] Social History Tobacco Use Types Packs/Day Years [...] 8:45 AM EST Office Visit Dermatology at [place] [address] [place] [address] Jake Galvez MD [address], [place] [address] documented as of this encounter Procedures Procedure Name Priority Date/Time Associated Diagnosis Comments FILM LIBRARY STORAGE ONLY MR SPINE Routine 01/10/2022 4:56 PM EDT documented in this encounter Results * Film Library- Storage Only MR Spine (01/10/2022 4:56 PM EDT) Narrative [facility] - 01/10/2022 4:56 PM EDT This exam is auto-finalizing. It's purpose is for storage only. Didier Romero MD IMG FILM LIBRARY ORDERABLES Performing Organization Address City/State/[facility] Co de Phone Number [place], [place] documented in this encounter Visit Diagnoses Not on filedocumented in this encounter Care Teams Brace Maker Relationship Specialty Start Date End Date Didier Romero MD [address] [place] [address] PCP - General Family Medicine 01/11/17 01/02/24 documented as of this encounter
--- OUTSIDE RECORDS SUMMARY | 2024-05-30 11:00 | XMS_ITS | Encounter Summary ---
Author Organization [facility] [place] [address] Care Team Providers Care Last Scourer Name Role Phone Didier Romero MD Primary Care Provider + Encounter Details Date Type Department Care Team (Late st Contact Info) Description 06/09/2021 Telephone [place] [phone] Emili Calzada RN Social History Tobacco Use [...] 06/09/2021 9:15 AM EST VM received on assistant store director line from Anisha Xie, nurse practitioner at [facility]. Anisha is asking ifDr. Aner can [...] 8:45 AM EST Office Visit Dermatology at [place] [address] [place] [address] Jake Galvez MD [address], [place] [address] documented as of this encounter Visit Diagnoses Not on filedocumented in this encounter Care Teams Last Scourer Relationship Specialty Start Date End Date Didier Romero MD [address] [place] [address] PCP - General Family Medicine 01/11/17 01/02/24 documented as of this encounter
--- OUTSIDE RECORDS SUMMARY | 2024-05-30 11:00 | XMS_ITS | Encounter Summary ---
[place] [address] Care Team Providers Care Activity Aid Name Role Phone Didier Romero MD Primary Care Provider + Encounter Details Date Type Department Care Team (Late st Contact Info) Description 07/26/2021 Telephone [facility] [place] [phone] Courtney Clifton RN Social History Tobacco Use [...] 8:45 AM EST Office Visit Dermatology at [address] [place] [phone] Jake Galvez MD [address], [place] [address] documented as of this encounter Visit Diagnoses Not on filedocumented in this encounter Care Teams Activity Aid Relationship Specialty Start Date End Date Didier Romero MD [address] [place] [address] PCP - General Family Medicine 01/11/17 01/02/24 documented as of this encounter
--- OUTSIDE RECORDS SUMMARY | 2024-05-30 11:00 | XMS_ITS | Encounter Summary ---
[place] [address] Care Team Providers Care Housing Assistant Property Manager Name Role Phone Didier Romero MD Primary Care Provider + Reason for Visit * Auth/Cert Specialty Diagnoses / Procedures Referred By Contac t Referred To Contact Diagnoses Lumbosacral radiculopathy Procedures PRO INJECTION DX/THER SBST INTRLMNR LMBR/SAC W/IMG GDN INJECTION, EPIDURAL, LUMBAR OR SACRAL (CAUDAL), WITH IMAGING GUIDANCE (WRVU 1.8) Referral ID Status Reason Start Date Expiration Date Visits Re quested Visits Authorized [id number] 1 1 Encounter Details Date Type Department Care Team (Late Contact Info) Description 02/03/2021 9:00 AM EDT Ancillary [place] [phone] Emerson Chand MD [facility] [place] [address] Pain Social History Tobacco Use Types Packs/Day [...] Department Care Team (Late Contact Info) Description 07/08/2024 8:45 AM EST Office Visit Dermatology at [place] [address] [place] [address] Jake Galvez MD [address], [place] [address] documented as of this encounter Procedures Procedure Name Priority Date/Time Associated Diagnosis Comments FILM LIBRARY STORAGE ONLY PAIN CLINIC C ARM Routine 02/03/2021 1:24 PM EDT Pain documented in this encounter Results * Film Library- Storage Only pain Clinic C-Arm (02/03/2021 1:24 PM EDT) Narrative [facility] - 02/03/2021 1:24 PM EDT See PACS for result report. Emerson Chand MD IMG FILM LIBRARY ORD ERABLES Performing Organization Address City/State/[facility] Co de Phone Number [place], [place] documented in this encounter Visit Diagnoses Diagnosis Pain Generalized pain documented in this encounter Care Teams Housing Assistant Property Manager Relationship Specialty Start Date End Date Didier Romero MD [address] [place] [address] PCP - General Family Medicine 01/11/17 01/02/24 documented as of this encounter
--- OUTSIDE RECORDS SUMMARY | 2024-05-30 11:00 | XMS_ITS | Encounter Summary ---
Author Organization [facility] Address [facility] [place] [address] Care Team Providers Care Undercollar Baster Name Role Phone Didier Romero MD Primary Care Provider + Reason for Visit * Reason Comments Follow-up Head and neck pain Encounter Details Date Type Department Care Team (Late st Contact Info) Description 07/20/2021 9:20 AM EST Office Visit [place] [address] Emerson Ernandez MD [facility] [place] [address] Cervical spondylosis (Primary Dx); Cervicalgia Social History [...] Ernandez MD - 07/20/2021 9:20 AM EST [facility] - Follow [...] daily., Disp: , Rfl: ??? flu vac [id number] 36mos up,PF, (Afluria Qd 2019-,3yr up,,PF,) 60 [...] Attending [facility]ician [facility] [place] [address] / CC: Didier Romero MD [facility] [place] [address] documented in this encounter Miscellaneous Notes * Addendum Note - Emerson Ernandez MD - 07/20/2021 9:20 AM ESTAddended by: EMERSON ERNANDEZ on: 07/28/2021 09:23 PM Modules accepted: Level of Service documented in this encounter Plan of Treatment Upcoming Encounters Date Type Department Care Team (Late st Contact Info) Description 07/08/2024 8:45 AM EST Office Visit Dermatology at [place] [address] [place] [address] Jake Galvez MD [address], [place] [address] documented as of this encounter Visit Diagnoses Diagnosis Cervical spondylosis- Primary Cervical spondylosis without myelopathy Cervicalgia documented in this encounter Care Teams Undercollar Baster Relationship Specialty Start Date End Date Didier Romero MD [address] [place] [address] PCP - General Family Medicine 01/11/17 01/02/24 documented as of this encounter
--- OUTSIDE RECORDS SUMMARY | 2024-05-30 11:00 | XMS_ITS | Encounter Summary ---
[place] [address] Care Team Providers Care Casting Room Operator Name Role Phone Didier Romero MD Primary Care Provider + Reason for Visit * Reason Comments Follow-up Encounter Details Date Type Department Care Team (Late st Contact Info) Description 07/20/2022 9:00 AM EST Procedure visit Dermatology at [address] [address] Jake Galvez MD [address] [facility] [place] [place] [address] History of malignant melanoma Social History Tobacco [...] 8:45 AM EST Office Visit Dermatology at [place] [address] [place] [address] Jake Galvez MD [address] [facility], [place] [address] documented as of this encounter Visit Diagnoses Diagnosis History of malignant melanoma Personal history of malignant melanoma of skin documented in this encounter Care Teams Casting Room Operator Relationship Specialty Start Date End Date Didier Romero MD [address] [place] [address] PCP - General Family Medicine 01/11/17 01/02/24 documented as of this encounter
--- OUTSIDE RECORDS SUMMARY | 2024-05-30 11:00 | XMS_ITS | Encounter Summary ---
[place] [address] Care Team Providers Care Tea Bag Machine Tender Name Role Phone Didier Romero MD [...] 8:45 AM EST Office Visit Dermatology at [address] [place] [address] Jake Galvez MD [address] [place] [address] RD, [place] [address] documented as of this encounter Visit Diagnoses Not on filedocumented in this encounter Care Teams Tea Bag Machine Tender Relationship Specialty Start Date End Date Didier Romero MD [address] [place] [address] PCP - General Family Medicine 01/11/17 01/02/24 documented as of this encounter
--- OUTSIDE RECORDS SUMMARY | 2024-05-30 11:00 | XMS_ITS | Encounter Summary ---
[place] [address] Care Team Providers Care Plaster Maker Name Role Phone Didier Romero MD Primary Care Provider + Encounter Details Date Type Department Care Team (Late st Contact Info) Description 07/24/2022 Telephone [place] [phone] Mary Larsen, RN Social History Tobacco Use [...] 8:45 AM EST Office Visit Dermatology at [place] [address] [facility] [place] [address] Jake Galvez MD [address], [place] [address] documented as of this encounter Visit Diagnoses Not on filedocumented in this encounter Care Teams Plaster Maker Relationship Specialty Start Date End Date Didier Romero MD [address] [place] [address] PCP - General Family Medicine 01/11/17 01/02/24 documented as of this encounter
--- OUTSIDE RECORDS SUMMARY | 2024-05-30 11:00 | XMS_ITS | Encounter Summary ---
[place] [address] Care Team Providers Care Park Superintendent Name Role Phone Didier Romero MD Primary Care Provider + Encounter Details Date Type Department Care Team (Late st Contact Info) Description 12/29/2021 11:30 AM EDT Office Visit Dermatology at [address] [place] [address] Jake Galvez MD [address] [facility], [place] [address] [place] (actinic keratosis); History of SCC (squamous [...] depth, July 2011 diagnosed in [place], right inferior axillary vault area, with a [...] 8:45 AM EST Office Visit Dermatology at [place] [address] [facility] [place] [address] Jake Galvez MD [address] [facility], [place] [address] documented as of this encounter Visit Diagnoses Diagnosis AK (actinic keratosis) Actinic keratosis History of SCC (squamous cell carcinoma) of skin Personal history of other malignant neoplasm of skin History of malignant melanoma Personal history of malignant melanoma of skin documented in this encounter Care Teams Park Superintendent Relationship Specialty Start Date End Date Didier Romero MD [address] [place] [address] PCP - General Family Medicine 01/11/17 01/02/24 documented as of this encounter
--- OUTSIDE RECORDS SUMMARY | 2024-05-30 11:00 | XMS_ITS | Encounter Summary ---
[place] [address] Care Team Providers Care Tufter Hand Name Role Phone Didier Romero MD Primary Care Provider + Encounter Details Date Type Department Care Team (Late st Contact Info) Description 09/07/2021 Telephone [facility] [place] [phone] Shelby Banegas Social History Tobacco Use Types [...] immediately reported that he would get his corporate lawyer involved right away. I asked that he just keep us updated with his corporate lawyer's progress in overturning the denial but I suspect we will be notified via Guillermo as well. Patient was thanked for his assistance with this and call ended. documented in this encounter Plan of Treatment Upcoming Encounters Date Type Department Care Team (Late st Contact Info) Description 07/08/2024 8:45 AM EST Office Visit Dermatology at [place] [address] [facility] [place] [address] Jake Galvez MD [address], [place] [address] documented as of this encounter Visit Diagnoses Not on filedocumented in this encounter Care Teams Tufter Hand Relationship Specialty Start Date End Date Didier Romero MD [address] [place] [address] PCP - General Family Medicine 01/11/17 01/02/24 documented as of this encounter
--- OUTSIDE RECORDS SUMMARY | 2024-05-30 11:00 | XMS_ITS | Encounter Summary ---
[place] [address] Care Team Providers Care Lead Miner Blasting Name Role Phone Didier Romero MD Primary Care Provider + Reason for Visit * Auth/Cert Specialty Diagnoses / Procedures Referred By Contac t Referred To Contact Diagnoses Lumbosacral radiculopathy Procedures PRO INJECTION DX/THER SBST INTRLMNR LMBR/SAC W/IMG GDN INJECTION, EPIDURAL, LUMBAR OR SACRAL (CAUDAL), WITH IMAGING GUIDANCE (WRVU 1.8) Referral ID Status Reason Start Date Expiration Date Visits Re quested Visits Authorized [id number] 1 1 Encounter Details Date Type Department Care Team (Late st Contact Info) Description 02/03/2021 9:00 AM EDT - 02/03/2021 9:30 AM EDT [place] [address] Emerson Chand MD [facility] [place] [address] INJECTION, EPIDURAL, LUMBAR OR SACRAL (CAUDAL), WITH [...] capsule Take 20 mg by mouth daily. flu vac [id number] 36mos up,PF, (Afluria Qd 2019-,3yr up,,PF,) 60 [...] Carlos Enrique Arroyo MD Pain Medicine Fellow [address] [phone] / [facility] documented in this encounter Miscellaneous Notes * Op Note - Carlos Enrique Arroyo MD - 02/03/2021 10:01 AM EDT Pain Management Operative Note Patient Name: Grayson Dodd III : [id number] MR#: [id number] Case Date: 02/03/2021 Surgeon: Surgeon(s) and Role: [...] Carlos Enrique Arroyo MD Pain Medicine Fellow [address] [address] / [facility] CC: Didier Romero MD [address] [place] [phone] Associated attestation - Emerson Chand MD - [...] AM EST Office Visit Dermatology at [address] [phone] Jake Galvez MD [address], [place] [address] Scheduled Orders Name Type Priority Associated Diagnoses [...] MD) documented in this encounter Care Teams Lead Miner Blasting Relationship Specialty Start Date End Date Didier Romero MD [address] [place] [address] PCP - General Family Medicine 01/11/17 01/02/24 documented as of this encounter
--- OUTSIDE RECORDS SUMMARY | 2024-05-30 11:00 | XMS_ITS | Encounter Summary ---
[place] [address] Care Team Providers Care Director Of Gift Planning Name Role Phone Didier Romero MD Primary Care Provider + Encounter Details Date Type Department Care Team (Late st Contact Info) Description 07/29/2021 Telephone [place] [address] Kayley Mckeon, RN Social History [...] AM EST Contact made with patient or territory sales representative as identified in contacts 1. Patient instructed to arrive at 07:30 on 08/03/21 with their team driver for their cervical RFAA procedure. Please [...] the patient has been directed to the [employer] hotline for testing prior to their procedure. (route telephone note to: [facility] covid 19 nurse triage with [...] 8:45 AM EST Office Visit Dermatology at [place] [address] [place] [address] Jake Galvez MD [address], [place] [address] documented as of this encounter Visit Diagnoses Not on filedocumented in this encounter Care Teams Director Of Gift Planning Relationship Specialty Start Date End Date Didier Romero MD [address] [place] [address] PCP - General Family Medicine 01/11/17 01/02/24 documented as of this encounter
--- OUTSIDE RECORDS SUMMARY | 2024-05-30 11:00 | XMS_ITS | Encounter Summary ---
[place] [address] Care Team Providers Care Funeral Service Apprentice Name Role Phone Didier Romero MD Primary Care Provider + Reason for Referral * Consultation (Routine) - Closed Specialty Diagnoses / Procedures Referred By Contac t Referred To Contact Pain and Spine Center Diagnoses Left lumbar radiculopathy Lumbar spondylosis Geoff Lanier MD [facility] PHYSICAL MEDICINE AND [facility] [place] [address] [facility] [place] [address] Referral ID Status Reason Start Date Expiration Date V isits Requested Visits Authorized [id number] Closed Surgical 02/24/2021 02/24/2022 3 3 Reason for Visit * Reason Comments Follow-up Procedure Encounter Details Date Type Department Care Team (Late st Contact Info) Description 02/24/2021 9:00 AM EDT Office Visit [place] [address] Geoff Lanier MD [facility] PHYSICAL [place] [address] Left lumbar radiculopathy; Lumbar spondylosis Social History [...] themuscle every 14 days. ??? flu vac [id number] 36mos up,PF, (Afluria Qd 2019-,3yr up,,PF,) 60 [...] 8:45 AM EST Office Visit Dermatology at [place] [address] [place] [address] Jake Galvez MD [address], [place] [address] Scheduled Referrals Name Type Priority Associated Diagnoses Orde r Schedule Referral to Pain and Spine Center (Internal only) Outpatient Referral Routine Left lumbar radiculopathy Lumbar spondylosis Ordered: 02/24/2021 documented as of this encounter Visit Diagnoses Diagnosis Left lumbar radiculopathy Thoracic or lumbosacral neuritis or radiculitis, unspecified Lumbar spondylosis Lumbosacral spondylosis without myelopathy documented in this encounter Care Teams Funeral Service Apprentice Relationship Specialty Start Date End Date Didier Romero MD [address] [place] [address] PCP - General Family Medicine 01/11/17 01/02/24 documented as of this encounter
--- OUTSIDE RECORDS SUMMARY | 2024-05-30 11:00 | XMS_ITS | Encounter Summary ---
[place] [address] Care Team Providers Care Pattern Grader Cutter Name Role Phone Didier Romero MD Primary Care Provider + Reason for Referral * Diagnostic Test (Routine) - Closed Specialty Diagnoses / Procedures Referred By Contac t Referred To Contact Procedures MRI Lumbar Spine wo Contrast (Generic) [facility] [place] [address] Referral ID Status Reason Start Date Expiration Date V isits Requested Visits Authorized [id number] Closed Specialty Service Requested 03/22/2021 09/20/2022 1 1 Encounter Details Date Type Department Care Team (Late Contact Info) Description 03/22/2021 External Results [facility] [place] [address] Provider, Scanning Social History Tobacco [...] 8:45 AM EST Office Visit Dermatology at [address] [place] [phone] Jake Galvez MD [address], [place] A DERMATOLOGY [place], [place] [id number] documented as of this encounter Procedures Procedure Name Priority Date/Time Associated Diagnosis Comments MRI LUMBAR SPINE WITHOUT CONTRAST Routine 10/08/2020 documented in this encounter Results * MRI Lumbar Spine wo Contrast (Generic) (10/08/2020) Anatomical Region Laterality Modality L-spine Magnetic Resonan ce Historical Provider IMSandra MRI ORDERABLE S documented in this encounter Visit Diagnoses Not on filedocumented in this encounter Care Teams Pattern Grader Cutter Relationship Specialty Start Date End Date Didier Romero MD [address] [place] [address] PCP - General Family Medicine 01/11/17 01/02/24 documented as of this encounter
--- OUTSIDE RECORDS SUMMARY | 2024-05-30 11:00 | XMS_ITS | Encounter Summary ---
Author Organization [facility] [place] [address] Care Team Providers Care Eight Section Blower Name Role Phone Didier Romero MD Primary [...] Expiration Date Visits Re quested Visits Authorized [id number] 1 1 Encounter Details Date Type Department Care Team (Late st Contact Info) Description 11/07/2021 8:00 AM EDT - 11/07/2021 8:45 AM ED[place] [phone] Emerson Chand MD [facility] [place] [address] DESTRUCT BY LYTIC AGENT, FACET NERVE(S), W/IMAGING; [...] UNKNOWN TO PATIENTIndications:L-t heteetee Indications: L-theanine 06/2023 flu vac [id number] 36mos up,PF, (Afluria Qd 2019-,3yr up,,PF,) 60 [...] Injection SI Joint 10/11/2021 Dannie Bailon MD [facility] RAD CT SCAN ??? HERNIA REPAIR ??? PRO DSTR PARAVERTEBRAL FCT JNT NRVES CERVICAL OR THORACIC ADDL Right 08/03/2021 DESTRUCT BY LYTIC AGENT, FACET NERVE(S), W/IMAGING; CX OR THX, EA ADD (WRVU 1.32) performed by Emerson Chand MD at [facility] PAIN MGMT MSO ??? PRO DSTR PARAVERTEBRAL FCT JNT NRVES CERVICAL OR THORACIC SINGLE Right 08/03/2021 DESTRUCT BY LYTIC AGNT, FACET JT NERVE(S), W/IMAGING; CX OR THX, SNGL (WRVU 3.84) performed by Emerson Chand MD at [facility] PAIN MGMT MSO ??? ROTATOR CUFF [...] themuscle every 14 days. ??? flu vac [id number] 36mos up,PF, (Afluria Qd 2020-,3yr up,,PF,) 60 mcg (15 mcg x 4)/0.5 [...] proceed. Yaw Contreras MD Pain Medicine Fellow [address] [address] / [facility] documented in this encounter Miscellaneous Notes * Op Note - Robbin Parrish - 11/07/2021 8:23 AM EDT Pain Management Operative Note Patient Name: Grayson Dodd III : [id number] MR#: [id number] Case Date: 11/07/2021 Surgeon: Surgeon(s) and Role: [...] PGY5 Pain Fellow CC: Didier Romero MD [address] [place] [phone] Associated attestation - Emerson Chand MD - [...] 8:45 AM EST Office Visit Dermatology at [place] [address] [place] [address] Jake Galvez MD [address], [place] A DERMATOLOGY [place], [place] [phone] documented as of this encounter Procedures Procedure [...] RFA) documented in this encounter Care Teams Eight Section Blower Relationship Specialty Start Date End Date Didier Romero MD [address] [place] [address] PCP - General Family Medicine 01/11/17 01/02/24 documented as of this encounter
--- OUTSIDE RECORDS SUMMARY | 2024-05-30 11:00 | XMS_ITS | Encounter Summary ---
Author Organization [facility] [place] [address] Care Team Providers Care Pharmacologist Name Role Phone Didier Romero MD Primary Care Provider + Encounter Details Date Type Department Care Team (Latest Contact Info) Description 07/03/2022 9:09 PM EST - 07/03/2022 11:59 PM [facility] Hospital [place] [address] Discharge Disposition: Home Social History Tobacco Use [...] 30 mg by mouth daily. 10/22/2021 01/03/2024 LORazepam (Ativan) 1 mg Tablet 12/22/2021 01/01/2023 venlafaxine XR (Effexor-XR) 75 mg Capsule, Sust. Release 24 hr Take 75 mg by mouth daily. TAKE WITH FOOD 10/24/2021 07/05/2023 NE[facility] ORAL Take by mouth. 01/01 UNKNOWN TO PATIENTIndications:L-t refugio Indications: L-theanine 06/2023 flu vac [id number] 36mos up,PF, (Afluria Qd 2019-,3yr up,,PF,) 60 [...] needed. 01/03/2024 documented as of this encounter Plan of Treatment Upcoming Encounters Date Type Department Care Team (Late st Contact Info) Description 07/08/2024 8:45 AM EST Office Visit Dermatology at [place] [address] [place] [phone] Jake Galvez MD [address], [place] [address] documented as of this encounter Procedures Procedure Name Priority Date/Time Associated Diagnosis Comments SURGICAL PATHOLOGY REPORT Routine 07/03/2022 10:45 AM EST documented in this encounter Results * Surgical Pathology Report (07/03/2022 10:45 AM EST) Final Diagnosis [id number] ? Location: OPW The signing pathologist has [...] Verified: ??07/11/2022 14:22 ??Dermatopatholog ist Performed at: ??-[facility] Dept. of Pathology, [place] [address] Communications Designer: Rosa Murdock MD, FCAP, ??CLIA Certificate: [id number] ADDITIONAL STUDIES Interpretation of multiple deeper leveled [...] labeled A1. ??jnr 07/11/2022 2:22 PM EST [facility] SPECIMEN FROM SKIN / Unknown 07/03/2022 10:45 AM EST 07/03/2022 10:45 AM EST Jake Galvez MD PATHOLOGY/CYTOLOGY [facility] [address] [place] [address] documented in this encounter Visit Diagnoses Not on filedocumented in this encounter Care Teams Pharmacologist Relationship Specialty Start Date End Date Didier Romero MD [address] [place] [address] PCP - General Family Medicine 01/11/17 01/02/24 documented as of this encounter
--- OUTSIDE RECORDS SUMMARY | 2024-05-30 11:00 | XMS_ITS | Encounter Summary ---
[place] [address] Care Team Providers Care String Studies Director Name Role Phone Didier Romero MD Primary Care Provider + Reason for Referral * Diagnostic Test (Routine) - Closed Specialty Diagnoses / Procedures Referred By Contac t Referred To Contact Radiology Diagnoses Spondylolisthesis, lumbar region Procedures CT Guided Injection SI Joint Magnus Tidwell PA [address] [place] [address] [facility] [place] [address] Referral ID Status Reason Start Date Expiration Date V isits Requested Visits Authorized [id number] Closed Specialty Service Requested 10/11/2021 10/11/2021 1 1 Reason for Visit * Diagnostic Test (Routine) - Closed Specialty Diagnoses / Procedures Referred By Contac t Referred To Contact Radiology Diagnoses Spondylolisthesis, lumbar region Procedures CT Guided Injection SI Joint Magnus Tidwell PA [address] [place] [address] [facility] [place] [address] Referral ID Status Reason Start Date Expiration Date V isits Requested Visits Authorized [id number] Closed Specialty Service Requested 10/11/2021 10/11/2021 1 1 Encounter Details Date Type Department Care Team (Latest Contact Info) Description 10/11/2021 8:17 AM EDT - 10/11/2021 11:59 PM EDT Hospital [place] [address] Magnus Tidwell PA [address] [place] [address] Spondylolisthesis, lumbar region Discharge Disposition: Home Social [...] UNKNOWN TO PATIENTIndications:L-t heanine Indications: L-theanine 06/2023 flu vac [id number] 36mos up,PF, (Afluria Qd 2019-,3yr up,,PF,) 60 [...] 8:45 AM EST Office Visit Dermatology at [place] [address] [facility] [place] [address] Jake Galvez MD [address] [facility], [place] [address] documented as of this encounter Procedures Procedure [...] who have questions please contact the health child care group leader that requested your imaging first. ? Narrative 10/11/2021 12:14 PM EDT EXAMINATION: CT GUIDED INJECTION SI JOINT ? CLINICAL HISTORY: 1/2 years of low back and left leg pain for diagnostic and therapeutic left SI injection. TECHNIQUE: Patient was informed of the risks and benefits of the procedure and written informed consent obtained. Patient placed prone on the CT fluoroscopic table and a frame assembler CT obtained. Plan created. Overlying skin was [...] prone on the CT fluoroscopictable and a frame assembler CT obtained. Plan created. Overlying skin was prepped and drapedin a sterile fashion. 5 cc 1% lidocaine was used for local anesthesia. [id number] spinal needle was advanced into the left [...] patients who have questions please contactthe health child care group leader that requested your imaging first. Magnus LEÓN IM CT ORDERABLES documented in this encounter Visit [...] mg documented in this encounter Care Teams String Studies Director Relationship Specialty Start Date End Date Didier Romero MD [address] [place] [address] PCP - General Family Medicine 01/11/17 01/02/24 documented as of this encounter
--- OUTSIDE RECORDS SUMMARY | 2024-05-30 11:00 | XMS_ITS | Encounter Summary ---
[place] [address] Care Team Providers Care Email Designer Name Role Phone Didier Romero MD Primary Care Provider + Encounter Details Date Type Department Care Team (Late Contact Info) Description 07/11/2022 Telephone Dermatology at [address] [place] [address] Jeana Valentin LPN Social History Tobacco [...] 8:45 AM EST Office Visit Dermatology at [place] [address] [facility] [place] [address] Jake Galvez MD [address], [place] [address] documented as of this encounter Visit Diagnoses Not on filedocumented in this encounter Care Teams Email Designer Relationship Specialty Start Date End Date Didier Romero MD [address] [place] [address] PCP - General Family Medicine 01/11/17 01/02/24 documented as of this encounter
--- OUTSIDE RECORDS SUMMARY | 2024-05-30 11:00 | XMS_ITS | Encounter Summary ---
Author Organization [facility] Address [facility] [place] [address] Care Team Providers Care Heart Nurse Name Role Phone Didier Romero MD Primary Care Provider + Reason for Referral * Consultation (Routine) - Closed Specialty Diagnoses / Procedures Referred By Contac t Referred To Contact Pain and Spine Center Diagnoses Postlaminectomy syndrome of lumbar region Radiculopathy of lumbosacral region Emerson Chand MD [facility] [place] [address] Lizett Genao PsyD [facility] [place] [address] Referral ID Status Reason Start Date Expiration Date V isits Requested Visits Authorized [id number] Closed Consult, Test & Treat 06/01/2021 06/01/2022 3 3 Reason for Visit * Reason Comments Follow-up Back Pain * Consultation (Routine) - Closed Specialty Diagnoses / Procedures Referred By Contac t Referred To Contact Pain and Spine Center Diagnoses Left lumbar radiculopathy Spondylolisthesis at L5-S1 level Chandler Clark MD [facility] [place] [address] Emerson Chand MD [facility] [place] [address] Referral ID Status Reason Start Date Expiration Date V isits Requested Visits Authorized [id number] Closed Evaluate and Treat 05/03/2021 05/03/2022 3 3 Encounter Details Date Type Department Care Team (Latest Contact Info) Description 06/01/2021 9:00 AM EST Office Visit Pain and Spine Center at [facility] [place] [address] Emerson Chand MD [facility] [place] [address] Radiculopathy of lumbosacral region (Primary Dx); Postlaminectomy [...] Chand MD - 06/01/2021 9:00 AM EST [facility] - Follow Up Note Date of visit: 06/01/21 : 1960 CC: Low back pain HPI: Grayson Dodd III is a [...] days., Disp: , Rfl: ??? flu vac [id number] 36mos up,PF, (Afluria Qd ,3yr up,,PF,) 60 [...] Attending Physician [facility] [place] [address] / CC: Chandler Clark MD [facility] [place] [address] documented in this encounter Plan of Treatment Upcoming Encounters Date Type Department Care Team (Late st Contact Info) Description 07/08/2024 8:45 AM EST Office Visit Dermatology at [place] [address] [facility] [place] [phone] Jake Galvez MD [address] [facility], [place] [address] Scheduled Referrals Name Type Priority Associated Diagnoses [...] region documented in this encounter Care Teams Heart Nurse Relationship Specialty Start Date End Date Didier Romero MD [address] [place] [address] PCP - General Family Medicine 01/11/17 01/02/24 documented as of this encounter
--- OUTSIDE RECORDS SUMMARY | 2024-05-30 11:00 | XMS_ITS | Encounter Summary ---
[place] [address] Care Team Providers Care Refrigerator Tester Name Role Phone Didier Romero MD [...] 8:45 AM EST Office Visit Dermatology at [address] [place] [address] Jake Galvez MD [address] [place] [address] RD, [place] [address] documented as of this encounter Visit Diagnoses Not on filedocumented in this encounter Care Teams Refrigerator Tester Relationship Specialty Start Date End Date Didier Romero MD [address] [place] [address] PCP - General Family Medicine 01/11/17 01/02/24 documented as of this encounter
--- OUTSIDE RECORDS SUMMARY | 2024-05-30 11:00 | XMS_ITS | Encounter Summary ---
[place] [address] Care Team Providers Care Health Promotion Officer Name Role Phone Didier Romero MD Primary Care Provider + Encounter Details Date Type Department Care Team (Late st Contact Info) Description 09/08/2021 Orders [place] [address] Roseanne Charles APRN [facility] [place] [address] Social History Tobacco Use Types Packs/Day Years [...] 8:45 AM EST Office Visit Dermatology at [place] [address] [place] [address] Jake Galvez MD [address], [place] [address] documented as of this encounter Visit Diagnoses Not on filedocumented in this encounter Care Teams Health Promotion Officer Relationship Specialty Start Date End Date Didier Romero MD [address] [place] [address] PCP - General Family Medicine 01/11/17 01/02/24 documented as of this encounter
--- OUTSIDE RECORDS SUMMARY | 2024-05-30 11:00 | XMS_ITS | Encounter Summary ---
[place] [address] Care Team Providers Care Embossing Tool Setter Name Role Phone Didier Romero MD [...] 8:45 AM EST Office Visit Dermatology at [address] [place] [address] Jake Galvez MD [address] [place] [address] RD, [place] [address] documented as of this encounter Visit Diagnoses Not on filedocumented in this encounter Care Teams Embossing Tool Setter Relationship Specialty Start Date End Date Didier Romero MD [address] [place] [address] PCP - General Family Medicine 01/11/17 01/02/24 documented as of this encounter
--- OUTSIDE RECORDS SUMMARY | 2024-05-30 11:00 | XMS_ITS | Encounter Summary ---
[place] [address] Care Team Providers Care Employee Benefits Manager Name Role Phone Didier Romero MD Primary Care Provider + Reason for Visit * Reason Comments Skin Check Encounter Details Date Type Department Care Team (Late st Contact Info) Description 07/03/2022 10:00 AM EST Office Visit Dermatology at [address] [address] Jake Galvez MD [address] [facility] [place] [address] [place] (actinic keratosis); History of SCC (squamous [...] mm Breslow depth, July 2011 diagnosed in [place], right inferior axillary vault area, with a [...] 8:45 AM EST Office Visit Dermatology at [place] [address] [place] [phone] Jake Galvez MD [address] [facility], [place] [address] documented as of this encounter Visit Diagnoses Diagnosis [place] (actinic keratosis) Actinic keratosis History of SCC (squamous cell carcinoma) of skin Personal history of other malignant neoplasm of skin History of malignant melanoma Personal history of malignant melanoma of skin documented in this encounter Care Teams Employee Benefits Manager Relationship Specialty Start Date End Date Didier Romero MD [facility] [place] [address] PCP - General Family Medicine 01/11/17 01/02/24 documented as of this encounter
--- OUTSIDE RECORDS SUMMARY | 2024-05-30 11:00 | XMS_ITS | Encounter Summary ---
Author Organization [facility] [place] [address] Care Team Providers Care Professional Golf Tournament Player Name Role Phone Didier Romero MD Primary Care Provider + Encounter Details Date Type Department Care Team (Latest Contact Info) Description 07/20/2022 8:50 PM EST - 07/20/2022 11:59 PM [facility] Hospital [place] [address] Discharge Disposition: Home Social History Tobacco Use [...] PATIENTIndications:L-t refugio Indications: L-theanine 06/2023 flu vac [id number] 36mos up,PF, (Afluria Qd 2019-,3yr up,,PF,) 60 [...] 8:45 AM EST Office Visit Dermatology at [place] [address] [place] [address] Jake Galvez MD [address], [place] [address] documented as of this encounter Procedures Procedure Name Priority Date/Time Associated Diagnosis Comments SURGICAL PATHOLOGY REPORT Routine 07/20/2022 9:00 AM EST documented in this encounter Results * Surgical Pathology Report (07/20/2022 9:00 AM EST) Final Diagnosis [id number] ? Location: OPW The signing pathologist has [...] Discussion) Electronically signed by: ?Arvind HOOD, PhD, [facility] Verified: ??08/03/2022 9:48 ?? Dermatopathologist Performed at: ??-[facility] Dept. of Pathology, [place] [address] Glass Loading Equipment Tender: Rosa Murdock MD, AP, ??CLIA Certificate: [id number] DISCUSSION Slides of the patient's prior biopsy ([id number]) have been reviewed. ?Focal increase of enlarged [...] CLINICAL INFORMATION Atypical melanocytic proliferation for excision, [id number]. Scar SPECIMEN PROCESSING A - Labeled/Fixative: Patient demographics, formalin. Quantity/Size: ??Single, 3.1 x 1.4 x 0.4 cm. . SPECIMEN PROCESSING Tissue Description: Excision of valdivia-white skin with an eccentric 0.8 x 0.5 cm recent, crusted previous biopsy site Sections/Processing: Inked and entirely submitted in 4 cassettes as follows: ?A1: ??tips ?A2-A4: ??body ??pps 08/03/2022 9:48 AM EST [facility] SPECIMEN FROM SKIN / Unknown 07/20/2022 9:00 AM EST 07/20/2022 9:00 AM EST Jake Galvez MD PATHOLOGY/CYTOLOGY Andrew [facility] [place] [address] [facility] [place] [address] documented in this encounter Visit Diagnoses Not on filedocumented in this encounter Care Teams Professional Golf Tournament Player Relationship Specialty Start Date End Date Didier Romero MD [address] [place] [address] PCP - General Family Medicine 01/11/17 01/02/24 documented as of this encounter
--- OUTSIDE RECORDS SUMMARY | 2024-05-30 11:00 | XMS_ITS | Encounter Summary ---
[place] [address] Care Team Providers Care Mutuel Department Manager Name Role Phone Didier Romero MD Primary Care Provider + Reason for Visit * Reason Comments Follow-up Encounter Details Date Type Department Care Team (Late st Contact Info) Description 01/01/2023 8:00 AM EDT Office Visit Dermatology at [address] [phone] Jake Galvez MD [address] [facility] [place] [address] History of malignant melanoma; [place] (actinic keratosis) [...] Progress Notes * Jake Galvez MD - 01/01/2023 8:00 AM EDT Problem: 1. 6-month skin checkup 2. 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 Status post 5-FU applications to bilateral forearms 4. History of malignant melanoma, 1 mm Breslow depth, July 2011 diagnosed in [place], rightinferior axillary vault area, with a negative [...] 8:45 AM EST Office Visit Dermatology at [address] [address] Jake Galvez MD [address] [place] [address], [place] [address] documented as of this encounter Visit Diagnoses Diagnosis History of malignant melanoma Personal history of malignant melanoma of skin [place] (actinic keratosis) Actinic keratosis documented in this encounter Care Teams Mutuel Department Manager Relationship Specialty Start Date End Date Didier Romero MD [address] [place] [address] PCP - General Family Medicine 01/11/17 01/02/24 documented as of this encounter
--- OUTSIDE RECORDS SUMMARY | 2024-05-30 11:01 | XMS_ITS | Encounter Summary ---
Author Organization [facility] [place] [address] Care Team Providers Care Basketball Scout Name Role Phone Didier Romero MD Primary [...] Expiration Date Visits Re quested Visits Authorized [id number] 1 1 Encounter Details Date Type Department Care Team (Late st Contact Info) Description 12/02/2020 8:30 AM EDT Ancillary [place] [phone] Emerson Chand MD [facility] [place] [address] Pain Social History Tobacco Use Types Packs/Day [...] 8:45 AM EST Office Visit Dermatology at [place] [address] [facility] [address] [place] [address] Jake Galvez MD [address], [place] [address] documented as of this encounter Procedures Procedure Name Priority Date/Time Associated Diagnosis Comments FILM LIBRARY STORAGE ONLY PAIN CLINIC C ARM Routine 12/02/2020 3:49 PM EDT Pain documented in this encounter Results * Film Library- Storage Only pain Clinic C-Arm (12/02/2020 3:49 PM EDT) Narrative [facility] - 12/02/2020 3:49 PM EDT See PACS for result report. Emerson Chand MD IMG FILM LIBRARY ORD ERABLES Performing Organization Address City/State/[facility] Co de Phone Number [place], [place] documented in this encounter Visit Diagnoses Diagnosis Pain Generalized pain documented in this encounter Care Teams Basketball Scout Relationship Specialty Start Date End Date Didier Romero MD [address] [place] [address] PCP - General Family Medicine 01/11/17 01/02/24 documented as of this encounter
--- OUTSIDE RECORDS SUMMARY | 2024-05-30 11:01 | XMS_ITS | Encounter Summary ---
[place] [address] Care Team Providers Care Warp Tying Machine Tender Name Role Phone Didier Romero MD Primary Care Provider + Reason for Visit * Reason Comments Skin Check Encounter Details Date Type Department Care Team (Late st Contact Info) Description 12/21/2020 4:15 PM EDT Office Visit Dermatology at [address] [address] Jake Galvez MD [address] [place] [address], [facility] A DERMATOLOGY [place], [place] [id number] [place] (actinic keratosis); History of SCC (squamous [...] 8:45 AM EST Office Visit Dermatology at [place] [address] [facility] [place] [address] Jake Galvez MD [address] [facility], [place] [address] documented as of this encounter Visit Diagnoses Diagnosis AK (actinic keratosis) Actinic keratosis History of SCC (squamous cell carcinoma) of skin Personal history of other malignant neoplasm of skin History of malignant melanoma Personal history of malignant melanoma of skin Eczema, unspecified type documented in this encounter Care Teams Warp Tying Machine Tender Relationship Specialty Start Date End Date Didier Romero MD [address] [place] [address] PCP - General Family Medicine 01/11/17 01/02/24 documented as of this encounter
--- OUTSIDE RECORDS SUMMARY | 2024-05-30 11:01 | XMS_ITS | Encounter Summary ---
[place] [address] Care Team Providers Care Rib Knitter Name Role Phone Didier Romero MD Primary Care Provider + Encounter Details Date Type Department Care Team (Late st Contact Info) Description 11/18/2020 Telephone [facility] [place] [phone] Kenyatta Solorzano, RN Social History Tobacco Use [...] ASA hold instructions - h/o Myocardial Infarction (PR): no - h/o Coronary Artery Disease (CAD): [...] per protocol order for INR/PT/PTT and the maintenance and engineering manager will arrange a lab visit 1 hr [...] medial branch block. Disposition: Patient transferred to maintenance and engineering manager to arrange requested injection. Patient's questions regarding [...] 8:45 AM EST Office Visit Dermatology at [place] [address] [facility] [place] [address] Jake Galvez MD [address], [place] [address] documented as of this encounter Visit Diagnoses Not on filedocumented in this encounter Care Teams Rib Knitter Relationship Specialty Start Date End Date Didier Romero MD [address] [place] [address] PCP - General Family Medicine 01/11/17 01/02/24 documented as of this encounter
--- OUTSIDE RECORDS SUMMARY | 2024-05-30 11:01 | XMS_ITS | Encounter Summary ---
[place] [address] Care Team Providers Care Can Cleaner Name Role Phone Didier Romero MD Primary Care Provider + Reason for Visit * Auth/Cert Specialty Diagnoses / Procedures Referred By Contac t Referred To Contact Diagnoses Lumbosacral radiculopathy Procedures PRO INJECTION DX/THER SBST INTRLMNR LMBR/SAC W/IMG GDN INJECTION, EPIDURAL, LUMBAR OR SACRAL (CAUDAL), WITH IMAGING GUIDANCE (WRVU 1.8) Referral ID Status Reason Start Date Expiration Date Visits Re quested Visits Authorized [id number] 1 1 Encounter Details Date Type Department Care Team (Latest Contact Info) Description 02/03/2021 8:18 AM EDT - 02/03/2021 10:19 AM EDT Hospital [place] [address] Emerson Chand MD [facility] [place] [address] Radiculopathy of lumbosacral region Discharge Disposition: Home [...] 20 mg by mouth daily. flu vac [id number] 36mos up,PF, (Afluria Qd 2019-,3yr up,,PF,) 60 [...] Carlos Enrique Arroyo MD Pain Medicine Fellow [address] [address] / [facility] documented in this encounter Miscellaneous Notes * Op Note - Carlos Enrique Arroyo MD - 02/03/2021 10:01 AM EDT Pain Management Operative Note Patient Name: Grayson Dodd III : [id number] MR#: [id number] Case Date: 02/03/2021 Surgeon: Surgeon(s) and Role: [...] Carlos Enrique Arroyo MD Pain Medicine Fellow [address] [address] / [facility] CC: Didier Romero MD [address] [place] [phone] Associated attestation - Emerson Chand MD - [...] 8:45 AM EST Office Visit Dermatology at [address] [phone] Jake Galvez MD [address] [place] [address] RD, [place] [address] Scheduled Orders Name Type Priority Associated Diagnoses [...] MD) documented in this encounter Care Teams Can Cleaner Relationship Specialty Start Date End Date Didier Romero MD [facility] [place] [address] PCP - General Family Medicine 01/11/17 01/02/24 documented as of this encounter
--- OUTSIDE RECORDS SUMMARY | 2024-05-30 11:01 | XMS_ITS | Encounter Summary ---
[place] [address] Care Team Providers Care Sociology Faculty Member Name Role Phone Didier Romero MD Primary Care Provider + Encounter Details Date Type Department Care Team (Late st Contact Info) Description 07/21/2020 Telephone [facility] [place] [phone] Kenyatta Solorzano, RN Social History Tobacco Use [...] postponed. Prior to checking in at [employer], please be sure to empty your bladder. Patient confirmed understanding that if they do not follow the above instructions, their procedure is likely to be cancelled. [facility] documented in this encounter Plan of Treatment Upcoming Encounters Date Type Department Care Team (Late st Contact Info) Description 07/08/2024 8:45 AM EST Office Visit Dermatology at [place] [address] [place] [address] Jake Galvez MD [address] [facility] [address], [place] [address] documented as of this encounter Visit Diagnoses Not on filedocumented in this encounter Care Teams Sociology Faculty Member Relationship Specialty Start Date End Date Didier Romero MD [address] [place] [address] PCP - General Family Medicine 01/11/17 01/02/24 documented as of this encounter
--- OUTSIDE RECORDS SUMMARY | 2024-05-30 11:01 | XMS_ITS | Encounter Summary ---
[place] [address] Care Team Providers Care Quality Control Projectionist Name Role Phone Didier Romero MD Primary Care Provider + Encounter Details Date Type Department Care Team (Late st Contact Info) Description 07/01/2020 Telephone [place] [phone] Kayley Mckeon, RN Social History Tobacco Use [...] arrive at 07:00 on 07/06/20 with their truck driver flatbed. 2. Following instructions left in the message: [...] body within the last two weeks? Hernan MAIRNELLI documented in this encounter Plan of Treatment Upcoming Encounters Date Type Department Care Team (Late st Contact Info) Description 07/08/2024 8:45 AM EST Office Visit Dermatology at [place] [address] [facility] [place] [address] Jake Galvez MD [address], [place] [address] documented as of this encounter Visit Diagnoses Not on filedocumented in this encounter Care Teams Quality Control Projectionist Relationship Specialty Start Date End Date Didier Romero MD [address] [place] [address] PCP - General Family Medicine 01/11/17 01/02/24 documented as of this encounter
--- OUTSIDE RECORDS SUMMARY | 2024-05-30 11:01 | XMS_ITS | Encounter Summary ---
[place] [address] Care Team Providers Care Science Education Professor Name Role Phone Didier Romero MD Primary Care Provider + Encounter Details Date Type Department Care Team (Late st Contact Info) Description 11/17/2020 Telephone [place] [address] Denia Egan LNA Social History Tobacco Use [...] 8:45 AM EST Office Visit Dermatology at [place] [address] [facility] [place] [phone] Jake Galvez MD [address] [address], [place] [address] documented as of this encounter Visit Diagnoses Not on filedocumented in this encounter Care Teams Science Education Professor Relationship Specialty Start Date End Date Didier Romero MD [facility] [place] [address] PCP - General Family Medicine 01/11/17 01/02/24 documented as of this encounter
--- OUTSIDE RECORDS SUMMARY | 2024-05-30 11:01 | XMS_ITS | Encounter Summary ---
[place] [address] Care Team Providers Care Plywood Layup Line Core Layer Name Role Phone Didier Romero MD Primary Care Provider + Reason for Visit * Auth/Cert Specialty Diagnoses / Procedures Referred By Contac t Referred To Contact Diagnoses Cervical spondylosis Cervical Spondylosis Procedures PRO DSTR PARAVERTEBRAL FCT JNT NRVES CERVICAL OR THORACIC SINGLE RADIOFREQUENCY ABLATION,SINGLE FACET JOINT,CERVICAL (WRVU 3.84) Referral ID Status Reason Start Date Expiration Date Visits Re quested Visits Authorized [id number] 1 1 Encounter Details Date Type Department Care Team (Latest Contact Info) Description 12/16/2020 7:01 AM EDT - 12/16/2020 9:01 AM EDT Hospital [place] [phone] Emerson Chand MD [facility] [place] [address] Discharge Disposition: Home Social History Tobacco Use [...] 4-6 hours after your procedure. {CHECK BOX SELECTION:30759} If you have diabetes, monitor your blood sugars frequently. If your blood sugar increases and is of concern, contact your Primary Care Provider. You received the following medications: Medications Given During Procedure Date/Time Order Dose Route Action {\field{\*\fldinst HYPERLINK ecmd:ord?wz=[id number]}{\fldrslt \cf18 12/16/2020 0821}} dexamethasone (PF) (Decadron) (10 mg/mL) injection 10 mg Intra-articular Given {\field{\*\fldinst HYPERLINK ecmd:ord?vy=[id number]}{\fldrslt \cf18 12/16/2020 0815}} lidocaine (pf) (Xylocaine) (20 [...] mg Tablet 500 mg as needed. 02/03/2021 flu vac [id number] 36mos up,PF, (Afluria Qd 2019-,3yr up,,PF,) 60 mcg (15 mcg x 4)/0.5 mL Syringe Afluria Qd 2019- (36 mos up)(PF)60 mcg (15 mcg x4)/0.5 mL IM syringe ADM 0.5ML IM UTD 01/03/2024 BD Luer-Kg Syringe 3 mL 25 gauge x 1 Syringe USE MONTHLY WITH B12 07/26/2019 021 irbesartan (AVAPRO) 75 mg Tablet daily. 07/09/2019 [...] 500 mg as needed. ??? flu vac [id number] 36mos up,PF, (Afluria Qd ,3yr up,,PF,) 60 [...] [facility] [place] [address] / documented in this encounter Miscellaneous Notes * Op Note - Emerson Chand MD - 12/16/2020 8:14 AM EDT Pain Management Operative Note Patient Name: Grayson Dodd III : [id number] MR#: [id number] Case Date: 12/16/2020 Surgeon: Surgeon(s) and Role: * Emerson Chand MD - Primary Present on Admission: Cervical spondylosis Postoperative diagnosis: Same Procedure(s) (LRB): RADIOFREQUENCY ABLATION,SINGLE FACET JOINT,CERVICAL (WRVU 3.84) (Left) CERVICAL MEDIAL BRANCH RADIOFREQUENCY- LEFT C3, C4, C5 and C6 Date of Service: 12/16/2020 Patient: Grayson Dodd III Provider: Emerson Chand MD Graysno Dodd III has been referred to the [...] [facility] [place] [address] / CC: Didier Romero MD [address] [place] [address] [place] [address] documented in this encounter Plan of Treatment Upcoming Encounters Date Type Department Care Team (Late st Contact Info) Description 07/08/2024 8:45 AM EST Office Visit Dermatology at [place] [address] [facility] [place] [phone] Jake Galvez MD [address] [facility] [address], [place] [address] documented as of this encounter Visit Diagnoses [...] intrarticular) documented in this encounter Care Teams Plywood Layup Line Core Layer Relationship Specialty Start Date End Date Didier Romero MD [address] [place] [address] PCP - General Family Medicine 01/11/17 01/02/24 documented as of this encounter
--- OUTSIDE RECORDS SUMMARY | 2024-05-30 11:01 | XMS_ITS | Encounter Summary ---
[place] [address] Care Team Providers Care Insurance Clerk Name Role Phone Didier Romero MD Primary [...] Expiration Date Visits Re quested Visits Authorized [id number] 1 1 Encounter Details Date Type Department Care Team (Late st Contact Info) Description 06/15/2020 8:15 AM EST - 06/15/2020 8:45 AM EST Surgery [place] [address] Emerson Chand MD [facility] [place] [address] INJECTION, FACET JOINT,W/FLUORO, CERVICAL, SINGLE (WRVU 1.82) [...] -Procedure Pain Log Patient: Grayson Dueñas Yousif [facility] [id number] It is important for you to keep [...] (AVAPRO) 75 mg Tablet daily. 07/09/2019 01/03/2024 fluorouraciL (EFUDEX) 5 % Cream Apply twice [...] medial calf 15 g 1 01/11/2017 09/06/2020 meTOPROLOL succinate (TOPROL-XL) 25 mg Tablet Sustained Release 24 hr daily. 08/10/2015 01/03/2024 allopurinol (ZYLOPRIM) 300 mg tablet Take 300 mg by mouth daily. 01/01/2023 aspirin 81 mg EC tablet Take 81 mg by mouth daily. 01/03/2024 albuterol-ipratropium (COMBIVENT) 18-103 mcg/actuation Aerosol Inhale 2 puffs into the lungs every 6 hours as needed. 01/03/2024 testosterone (ANDROGEL) 1 %(50 mg/5 gram) GlPk [...] file Gets together: Not on file Attends scientology service: Not on file Active member of [...] future. John Honeycutt MD Pain Management Fellow [address] [address] / [facility] documented in this encounter Miscellaneous Notes * Op Note - John Honeycutt MD - 06/15/2020 9:07 AM EST Pain Management Operative Note Patient Name: Grayson Dodd III : [id number] MR#: [id number] Case Date: 06/15/2020 Surgeon: Surgeon(s) and Role: [...] and 5mg of dexamethasone was wasted) Mr. oDdd's vital signs were stable throughout the procedure [...] scores. John Honeycutt MD Pain Management Fellow [address] [address] / [facility] CC: Didier Romero MD [address] [place] [address] Associated attestation - Emerson Chand MD - [...] 8:45 AM EST Office Visit Dermatology at [place] [address] [place] [address] Jake Galvez MD [address] [facility] [address], [place] [address] documented as of this encounter Visit Diagnoses [...] MD) documented in this encounter Care Teams Insurance Clerk Relationship Specialty Start Date End Date Didier Romero MD [address] [place] [address] PCP - General Family Medicine 01/11/17 01/02/24 documented as of this encounter
--- OUTSIDE RECORDS SUMMARY | 2024-05-30 11:01 | XMS_ITS | Encounter Summary ---
[place] [address] Care Team Providers Care Clinical Dermatologist Name Role Phone Didier Romero MD Primary Care Provider + Encounter Details Date Type Department Care Team (Late st Contact Info) Description 12/03/2020 Telephone [place] [phone] Kenyatta Solorzano, RN Social History Tobacco Use [...] ASA hold instructions - h/o Myocardial Infarction (AZ): no - h/o Coronary Artery Disease (CAD): [...] per protocol order for INR/PT/PTT and the production planner scheduler will arrange a lab visit 1 [...] A Chand MD. Disposition: Patient transferred to production planner scheduler to arrange requested injection. Patient's questions regarding requested procedure were answered and patient verbalized understanding. knows how to contact the [facility] and understands that he may do so atany time should he develop any questions or concerns. [employer] [facility] documented in this encounter Plan of Treatment Upcoming Encounters Date Type Department Care Team (Late st Contact Info) Description 07/08/2024 8:45 AM EST Office Visit Dermatology at [place] [address] [facility] [place] [address] Jake Galvez MD [address] [facility], [place] [address] documented as of this encounter Visit Diagnoses Not on filedocumented in this encounter Care Teams Clinical Dermatologist Relationship Specialty Start Date End Date Didier Romero MD [address] [place] [address] PCP - General Family Medicine 01/11/17 01/02/24 documented as of this encounter
--- OUTSIDE RECORDS SUMMARY | 2024-05-30 11:01 | XMS_ITS | Encounter Summary ---
Author Organization [facility] Address [facility] [place] [address] Care Team Providers Care Analysis Analyst Name Role Phone Didier Romero MD Primary Care Provider + Encounter Details Date Type Department Care Team (Latest Contact Info) Description 01/13/2021 4:23 PM EDT - 01/13/2021 11:59 PM EDT Hospital Encounter XRay at [address] [place] [address] Emerson Chand MD [facility] [place] [address] Radiculopathy of lumbosacral region Discharge Disposition: Home [...] 500 mg as needed. 02/03/2021 flu vac [id number] 36mos up,PF, (Afluria Qd 2019-,3yr up,,PF,) 60 [...] 8:45 AM EST Office Visit Dermatology at [place] [address] [facility] [place] [phone] Jake Galvez MD [address] [facility], [place] [address] documented as of this encounter Procedures Procedure [...] who have questions please contact the health critical care physician assistant that requested your imaging first. ? Electronically signed by: Loki Frazier MD, [facility] ([phone]), at 01/13/2021 4:52 PM Narrative 01/13/2021 4:52 [...] patients who have questions please contactthe health critical care physician assistant that requested your imaging first. Electronically signed by: Loki Frazier MD, [facility]([phone]), at 01/13/2021 4:52 PM Emerson Chand MD IMG DX ORDERABLES documented in this encounter Visit Diagnoses Diagnosis Radiculopathy of lumbosacral region Thoracic or lumbosacral neuritis or radiculitis, unspecified documented in this encounter Care Teams Analysis Analyst Relationship Specialty Start Date End Date Didier Romero MD [facility] [address] PCP - General Family Medicine 01/11/17 01/02/24 documented as of this encounter
--- OUTSIDE RECORDS SUMMARY | 2024-05-30 11:01 | XMS_ITS | Encounter Summary ---
Author Organization [facility] [place] [address] Care Team Providers Care Broach Grinder Name Role Phone Didier Romero MD Primary [...] Expiration Date Visits Re quested Visits Authorized [id number] 1 1 Encounter Details Date Type Department Care Team (Late st Contact Info) Description 07/26/2020 7:30 AM EST - 07/26/2020 8:30 AM EST [place] [address] Emerson Chand MD [facility] [place] [address] RADIOFREQUENCY ABLATION,SINGLE FACET JOINT,CERVICAL (WRVU 3.32) Social [...] [facility] [place] [address] / documented in this encounter Miscellaneous Notes * Op Note - Emerson Chand MD - 07/26/2020 8:08 AM EST Pain Management Operative Note Patient Name: Grayson Dueñas Yousif GARCIA : [id number] MR#: [id number] Case Date: 07/26/2020 Surgeon: Surgeon(s) and Role: [...] plans and appointments were discussed with Grayson Spenser Yousif GARCIA. Post procedure instruction was given as documented in the nursing documentation and having met discharge criteria, he was discharged from the Pain Management Center. Emerson Chand MD [facility] [place] [address] / CC: Didier Romero MD [address] [place] [address] documented in this encounter Plan of Treatment Upcoming Encounters Date Type Department Care Team (Late st Contact Info) Description 07/08/2024 8:45 AM EST Office Visit Dermatology at [place] [address] [facility] [place] [address] Jake Galvez MD [address] [facility], [place] [address] documented as of this encounter Visit Diagnoses [...] RN) documented in this encounter Care Teams Broach Grinder Relationship Specialty Start Date End Date Didier Romero MD [address] [place] [address] PCP - General Family Medicine 01/11/17 01/02/24 documented as of this encounter
--- OUTSIDE RECORDS SUMMARY | 2024-05-30 11:01 | XMS_ITS | Encounter Summary ---
[place] [address] Care Team Providers Care Radiology Transporter Name Role Phone Didier Romero MD Primary Care Provider + Reason for Visit * Auth/Cert Specialty Diagnoses / Procedures Referred By Contac t Referred To Contact Diagnoses Cervical spondylosis Cervical Spondylosis Procedures PRO DSTR PARAVERTEBRAL FCT JNT NRVES CERVICAL OR THORACIC SINGLE RADIOFREQUENCY ABLATION,SINGLE FACET JOINT,CERVICAL (WRVU 3.84) Referral ID Status Reason Start Date Expiration Date Visits Re quested Visits Authorized [id number] 1 1 Encounter Details Date Type Department Care Team (Late st Contact Info) Description 12/16/2020 7:30 AM EDT - 12/16/2020 8:30 AM EDT [place] [phone] Emerson Chand MD [facility] [place] [address] RADIOFREQUENCY ABLATION,SINGLE FACET JOINT,CERVICAL (WRVU 3.32) Social [...] 4-6 hours after your procedure. {CHECK BOX SELECTION:94612} If you have diabetes, monitor your blood sugars frequently. If your blood sugar increases and is of concern, contact your Primary Care Provider. You received the following medications: Medications Given During Procedure Date/Time Order Dose Route Action {\field{\*\fldinst HYPERLINK ecmd:ord?[id number]}{\fldrslt \cf18 12/16/2020 0821}} dexamethasone (PF) (Decadron) (10 mg/mL) injection 10 mg Intra-articular Given {\field{\*\fldinst HYPERLINK ecmd:ord?[id number]}{\fldrslt \cf18 12/16/2020 0815}} lidocaine (pf) (Xylocaine) (20 [...] 500 mg as needed. 02/03/2021 flu vac [id number] 36mos up,PF, (Afluria Qd 2019-,3yr up,,PF,) 60 [...] 500 mg as needed. ??? flu vac [id number] 36mos up,PF, (Afluria Qd 2019-,3yr up,,PF,) 60 [...] [facility]ending [facility] [place] [address] / documented in this encounter Miscellaneous Notes * Op Note - Emerson Chand MD - 12/16/2020 8:14 AM EDT Pain Management Operative Note Patient Name: Grayson Dodd III : [id number] MR#: [id number] Case Date: 12/16/2020 Surgeon: Surgeon(s) and Role: [...] attempt to reproduce some component of Grayson Spenser Dodd III???s usual pain. Each placement was [...] [facility] [place] [address] / CC: Didier Romeor MD [address] [place] [address] [place] [address] documented in this encounter Plan of Treatment Upcoming Encounters Date Type Department Care Team (Late st Contact Info) Description 07/08/2024 8:45 AM EST Office Visit Dermatology at [place] [address] [facility] [address] [place] [address] Jake Galvez MD [address], [place] [address] documented as of this encounter Visit Diagnoses [...] intrarticular) documented in this encounter Care Teams Radiology Transporter Relationship Specialty Start Date End Date Didier Romero MD [address] [place] [address] PCP - General Family Medicine 01/11/17 01/02/24 documented as of this encounter
--- OUTSIDE RECORDS SUMMARY | 2024-05-30 11:01 | XMS_ITS | Encounter Summary ---
[place] [address] Care Team Providers Care Broodmare Foreman Name Role Phone Didier Romero MD Primary [...] Expiration Date Visits Re quested Visits Authorized [id number] 1 1 Encounter Details Date Type Department Care Team (Late st Contact Info) Description 07/06/2020 7:30 AM EST Ancillary [place] [address] Emerson Chand MD [facility] [place] [address] Pain Social History Tobacco Use Types Packs/Day [...] 8:45 AM EST Office Visit Dermatology at [place] [address] [facility] [place] [address] Jake Galvez MD [address], [place] [address] documented as of this encounter Procedures Procedure Name Priority Date/Time Associated Diagnosis Comments FILM LIBRARY STORAGE ONLY PAIN CLINIC C ARM Routine 07/06/2020 3:28 PM EST Pain documented in this encounter Results * Film Library- Storage Only pain Clinic C-Arm (07/06/2020 3:28 PM EST) Narrative [facility] - 07/06/2020 3:28 PM EST See PACS for result report. Emerson Chand MD [facility] FILM LIBRARY ORD ERABLES Performing Organization Address City/State/[facility] Co de Phone Number [place], [place] documented in this encounter Visit Diagnoses Diagnosis Pain Generalized pain documented in this encounter Care Teams Broodmare Foreman Relationship Specialty Start Date End Date Didier Romero MD [address] [place] [address] PCP - General Family Medicine 01/11/17 01/02/24 documented as of this encounter
--- OUTSIDE RECORDS SUMMARY | 2024-05-30 11:01 | XMS_ITS | Encounter Summary ---
Author Organization [facility] [place] [address] Care Team Providers Care Airport Operations Duty Manager Name Role Phone Didier Romero MD [...] Expiration Date Visits Re quested Visits Authorized [id number] 1 1 Encounter Details Date Type Department Care Team (Latest Contact Info) Description 12/02/2020 7:53 AM EDT - 12/02/2020 9:45 AM EDT Hospital En[place] [phone] Emerson Chand MD [facility] [place] [address] Discharge Disposition: Home Social History Tobacco Use [...] Date/Time Order Dose Route Action {\field{\*\fldinst HYPERLINK ecmd:ord?mu=[id number]}{\fldrslt \cf18 12/02/2020 0920}} BUpivacaine (pf) (Marcaine) (2.5 mg/mL) 0.25% injection 2 mL Other Given {\field{\*\fldinst HYPERLINK ecmd:ord?hg=[id number]}{\fldrslt \cf18 12/02/2020 0908}} iohexoL (Omnipaque) (240 mg/mL) injection solution 1 mL Other Given {\field{\*\fldinst HYPERLINK ecmd:ord?ge=[id number]}{\fldrslt \cf18 12/02/2020 0938}} lidocaine (pf) (Xylocaine) (10 [...] -Procedure Pain Log Patient: Grayson Dodd III [id number] It is important for you to keep [...] x 1 Syringe USE TWICE MONTHLY 09/23/2020 BD SafetyGlide Needle 25 x 5/8 Needle [...] 500 mg as needed. 02/03/2021 flu vac [id number] 36mos up,PF, (Afluria Qd 2019-,3yr up,,PF,) 60 mcg (15 mcg x 4)/0.5 mL Syringe Afluria Qd 2019- (36 mos up)(PF)60 mcg (15 mcg x4)/0.5 mL IM syringe ADM 0.5ML IM UTD 01/03/2024 acetaminophen (Tylenol) 500 mg Tablet 500 mg [...] LOCATION: Left neck PAIN LEVEL AT REST 5/10, 9/10 with modified kemps PAST MEDICAL HISTORY: Past [...] Tablet 500 mg as needed. flu vac [id number] 36mos up,PF, (Afluria Qd 2019-,3yr up,,PF,) 60 [...] C3,4,5,6 John Honeycutt MD Pain Management Fellow [place] [phone] / [facility] documented in this encounter Miscellaneous Notes * Op Note - Emerson Chand MD - 12/02/2020 9:07 AM EDT Pain Management Operative Note Patient Name: Grayson Dodd III : [id number] MR#: [id number] Case Date: 12/02/2020 Surgeon: Surgeon(s) and Role: [...] Attending [facility] [place] [address] / CC: Didier Romero MD [address] [place] [phone] documented in this encounter Plan of Treatment Upcoming Encounters Date Type Department Care Team (Late st Contact Info) Description 07/08/2024 8:45 AM EST Office Visit Dermatology at [place] [address] [facility] [place] [phone] Jake Galvez MD [address] [facility], [place] A DERMATOLOGY [place], [place] [address] documented as of this encounter Visit Diagnoses Not on filedocumented in this encounter Active and Recently Administered Medications Times are shown in EDT. PRN Medication Order 11/30/2020 12/01/2020 12/02/2020 BUpivacaine (pf) (Marcaine) (2.5 mg/mL) 0.25% injection (CANCELED) ONCE PRN, Starting on Ginger 12/02/20 at 0920, Until Ginger 12/02/20 at 1145, Intra-Operative (Intra-Procedure), Routine 0920 (Given - Provid er: John oHneycutt MD - Comment: cervical MBB) iohexoL (Omnipaque) [...] MD) documented in this encounter Care Teams Airport Operations Duty Manager Relationship Specialty Start Date End Date Didier Romero MD [facility] [place] [address] PCP - General Family Medicine 01/11/17 01/02/24 documented as of this encounter
--- OUTSIDE RECORDS SUMMARY | 2024-05-30 11:01 | XMS_ITS | Encounter Summary ---
[place] [address] Care Team Providers Care Garment Patternmaker Name Role Phone Didier Romero MD Primary Care Provider + Encounter Details Date Type Department Care Team (Late st Contact Info) Description 06/15/2020 Telephone [place] [phone] Kayley Mckeon, RN Social History Tobacco Use [...] ASA hold instructions - h/o Myocardial Infarction (PA): no - h/o Coronary Artery Disease (CAD): [...] branch block. . Disposition: Patient transferred to planner scheduler to arrange requested injection. Patient's [...] 8:45 AM EST Office Visit Dermatology at [place] [address] [facility] [place] [address] Jake Galvez MD [address], [place] [address] documented as of this encounter Visit Diagnoses Not on filedocumented in this encounter Care Teams Garment Patternmaker Relationship Specialty Start Date End Date Didier Romero MD [address] [place] [address] PCP - General Family Medicine 01/11/17 01/02/24 documented as of this encounter
--- OUTSIDE RECORDS SUMMARY | 2024-05-30 11:01 | XMS_ITS | Encounter Summary ---
[place] [address] Care Team Providers Care Church Communications Administrator Name Role Phone Didier Romero MD [...] Expiration Date Visits Re quested Visits Authorized [id number] 1 1 Encounter Details Date Type Department Care Team (Late st Contact Info) Description 06/15/2020 8:15 AM EST Ancillary [place] [address] [facility] [place] [address] Pain Social History Tobacco Use Types Packs/Day [...] 8:45 AM EST Office Visit Dermatology at [place] [address] [place] [address] Jake Galvez MD [address], [place] [address] documented as of this encounter Procedures Procedure Name Priority Date/Time Associated Diagnosis Comments FILM LIBRARY STORAGE ONLY PAIN CLINIC C ARM Routine 06/15/2020 4:59 PM EST Pain documented in this encounter Results * Film Library- Storage Only pain Clinic C-Arm (06/15/2020 4:59 PM EST) Narrative [facility] - 06/15/2020 4:59 PM EST See PACS for result report. Emerson Chand MD [facility] FILM LIBRARY ORD ERABLES [place], [place] documented in this encounter Visit Diagnoses Diagnosis Pain Generalized pain documented in this encounter Care Teams Church Communications Administrator Relationship Specialty Start Date End Date Didier Romero MD [address] [place] [address] PCP - General Family Medicine 01/11/17 01/02/24 documented as of this encounter
--- OUTSIDE RECORDS SUMMARY | 2024-05-30 11:01 | XMS_ITS | Encounter Summary ---
[place] [address] Care Team Providers Care Configuration Management Administrator Name Role Phone Didier Romero MD Primary Care Provider + Reason for Referral * Consultation (Routine) - Closed Specialty Diagnoses / Procedures Referred By Contac t Referred To Contact Pain and Spine Center Diagnoses Cervicalgia Cervical spondylosis Procedure - Diagnostic medial branch blocks L C3, C4, C5, C6 *High risk. Patient on low dose ASA per TPL Geoff Lanier MD [facility] [place] [address] [facility] [place] [address] Referral ID Status Reason Start Date Expiration Date Visits Requested Visits Authorized [id number] Closed Pain Interventional Procedure 09/15/2020 09/15/2021 3 3 Encounter Details Date Type Department Care Team (Late st Contact Info) Description 09/15/2020 Orders Only [place] [address] Geoff Lanier MD [facility] [place] [address] Cervicalgia; Cervical spondylosis Social History Tobacco Use [...] 8:45 AM EST Office Visit Dermatology at [place] [address] [place] [address] Jake Galvez MD [address], [place] [address] Scheduled Referrals Name Type Priority Associated Diagnoses Orde r Schedule Referral to Pain and Spine Center (Internal only) Outpatient Referral Routine Cervicalgia Cervical spondylosis Ordered: 09/15/2020 documented as of this encounter Visit Diagnoses Diagnosis Cervicalgia Cervical spondylosis Cervical spondylosis without myelopathy documented in this encounter Care Teams Configuration Management Administrator Relationship Specialty Start Date End Date Didier Romero MD [address] [place] [address] PCP - General Family Medicine 01/11/17 01/02/24 documented as of this encounter
--- OUTSIDE RECORDS SUMMARY | 2024-05-30 11:01 | XMS_ITS | Encounter Summary ---
Author Organization [facility] [address] Care Team Providers Care Paint Grinder Stone Mill Name Role Phone Didier Romero MD Primary [...] Expiration Date Visits Re quested Visits Authorized [id number] 1 1 Encounter Details Date Type Department Care Team (Latest Contact Info) Description 07/26/2020 7:01 AM EST - 07/26/2020 9:03 AM EST Hospital Encounter [place] [address] Emerson Chand MD [facility] [place] [address] Discharge Disposition: Home Social History Tobacco Use [...] Right sided neck PAIN LEVEL AT REST /10 PAST MEDICAL HISTORY: Past Medical History: Diagnosis [...] Attending [facility] [place] [address] / documented in this encounter Miscellaneous Notes * Op Note - Emerson Chand MD - 07/26/2020 8:08 AM EST Pain Management Operative Note Patient Name: Grayson Dodd III : [id number] MR#: [id number] Case Date: 07/26/2020 Surgeon: Surgeon(s) and Role: [...] Attending [facility] [place] [address] / CC: Didier Romero MD [address] [place] [address] documented in this encounter Plan of Treatment Upcoming Encounters Date Type Department Care Team (Late st Contact Info) Description 07/08/2024 8:45 AM EST Office Visit Dermatology at [place] [address] [facility] [place] [phone] Jake Galvez MD [address], [place] [address] documented as of this encounter Visit Diagnoses [...] RN) documented in this encounter Care Teams Paint Grinder Stone Mill Relationship Specialty Start Date End Date Didier Romero MD [address] [place] [address] PCP - General Family Medicine 01/11/17 01/02/24 documented as of this encounter
--- OUTSIDE RECORDS SUMMARY | 2024-05-30 11:01 | XMS_ITS | Encounter Summary ---
Author Organization [facility] [place] [address] Care Team Providers Care Compounder Helper Name Role Phone Didier Romero MD Primary Care Provider + Reason for Visit * Reason Comments Follow-up F/U S/P RFA 07/26/20 Encounter Details Date Type Department Care Team (Late st Contact Info) Description 09/06/2020 12:30 PM EDT Office Visit [facility] [place] [address] Emerson Chand MD [facility] [place] [place] [address] Cervical spondylosis; Cervicalgia; Myofascial pain Social History [...] Chand MD - 09/06/2020 12:30 PM EDT [facility] - Follow [...] Gatherings with Friends and Family: ??? Attends Jainism Services: ??? Active Member of Clubs or [...] needed., Disp: , Rfl: ??? flu vac [id number] 36mos up,PF, (Afluria Qd 2020-21,3yr up,,PF,) 60 [...] Attending [facility] [place] [address] / CC: Anisha Xie, PRAFUL [address] [place] [address] [address] [place] [address] documented in this encounter Plan of Treatment Upcoming Encounters Date Type Department Care Team (Late st Contact Info) Description 07/08/2024 8:45 AM EST Office Visit Dermatology at [place] [address] [place] [address] Jake Galvez MD [address], [place] [address] documented as of this encounter Visit Diagnoses Diagnosis Cervical spondylosis Cervical spondylosis without myelopathy Cervicalgia Myofascial pain Mylagia and myositis, unspecified documented in this encounter Care Teams Compounder Helper Relationship Specialty Start Date End Date Didier Romero MD [facility] [address] [place] [address] PCP - General Family Medicine 01/11/17 01/02/24 documented as of this encounter
--- OUTSIDE RECORDS SUMMARY | 2024-05-30 11:01 | XMS_ITS | Encounter Summary ---
Author Organization [facility] [place] [address] Care Team Providers Care Information Receptionist Name Role Phone Didier Romero MD Primary Care Provider + Encounter Details Date Type Department Care Team (Late st Contact Info) Description 01/20/2021 Telephone [facility] [place] [phone] Gillian Courtney Social History Tobacco Use Types [...] 8:45 AM EST Office Visit Dermatology at [address] [address] Jake Galvez MD [address] [place] [address] RD, [place] [address] documented as of this encounter Visit Diagnoses Not on filedocumented in this encounter Care Teams Information Receptionist Relationship Specialty Start Date End Date Didier Romero MD [facility] [place] [address] PCP - General Family Medicine 01/11/17 01/02/24 documented as of this encounter
--- OUTSIDE RECORDS SUMMARY | 2024-05-30 11:01 | XMS_ITS | Encounter Summary ---
Author Organization [facility] [place] [address] Care Team Providers Care Shopper Name Role Phone Didier Romero MD Primary [...] Expiration Date Visits Re quested Visits Authorized [id number] 1 1 Encounter Details Date Type Department Care Team (Late st Contact Info) Description 12/02/2020 8:30 AM EDT - 12/02/2020 9:00 AM EDT [place] [phone] Emerson Chand MD [facility] [place] [address] INJECTION, FACET JOINT,W/FLUORO, CERVICAL, SINGLE (WRVU 1.82) [...] Date/Time Order Dose Route Action {\field{\*\fldinst HYPERLINK ecmd:ord?kz=[id number]}{\fldrslt \18 12/02/2020 0920}} BUpivacaine (pf) (Marcaine) (2.5 mg/mL) 0.25% injection 2 mL Other Given {\field{\*\fldinst HYPERLINK ecmd:ord?uw=[id number]}{\fldrslt \18 12/02/2020 0908}} iohexoL (Omnipaque) (240 mg/mL) injection solution 1 mL Other Given {\field{\*\fldinst HYPERLINK ecmd:ord?gl=[id number]}{\fldrslt \18 12/02/2020 0938}} lidocaine (pf) (Xylocaine) (10 [...] Post -Procedure Pain Log Patient: Grayson Garayloida [facility] [id number] It is important for you to keep [...] 500 mg as needed. 02/03/2021 flu vac [id number] 36mos up,PF, (Afluria Qd 2019-,3yr up,,PF,) 60 [...] 500 mg as needed. Yes Afluria Qd 2018-,3yr up,,PF, 60 mcg (15 [...] Tablet 500 mg as needed. flu vac [id number] 36mos up,PF, (Afluria Qd ,3yr up,,PF,) 60 [...] C3,4,5,6 John Honeycutt MD Pain Management Fellow [address] [phone] / [facility] documented in this encounter Miscellaneous Notes * Op Note - Emerson Chand MD - 12/02/2020 9:07 AM EDT Pain Management Operative Note Patient Name: Grayson Dodd III : [id number] MR#: [id number] Case Date: 12/02/2020 Surgeon: Surgeon(s) and Role: [...] Attending [facility] [place] [address] / CC: Didier Romero MD [address] [place] [phone] documented in this encounter Plan of Treatment Upcoming Encounters Date Type Department Care Team (Late st Contact Info) Description 07/08/2024 8:45 AM EST Office Visit Dermatology at [place] [address] [facility] [place] [phone] Jake Galvez MD [address], [place] A DERMATOLOGY [place], [place] [phone] documented as of this encounter Visit Diagnoses [...] Ginger 12/02/20 at 1145, Intra-Operative (Intra-Procedure), Routine 09 (Given - Provid er: John Honeycutt MD - Comment: Cervical MBB) lidocaine (pf) (Xylocaine) (10 mg/mL) 1% injection (CANCELED) ONCE PRN, Starting on Ginger 12/02/20 at 0938, Until Ginger 12/02/20 at 1145, Intra-Operative (Intra-Procedure), Routine 09 (Given - Provid er: John Honeycutt MD) documented in this encounter Care Teams Shopper Relationship Specialty Start Date End Date Didier Romero MD [facility] [place] [address] PCP - General Family Medicine 01/11/17 01/02/24 documented as of this encounter
--- OUTSIDE RECORDS SUMMARY | 2024-05-30 11:01 | XMS_ITS | Encounter Summary ---
[place] [address] Care Team Providers Care Production Utility Worker Name Role Phone Didier Romero MD [...] Expiration Date Visits Re quested Visits Authorized [id number] 1 1 Encounter Details Date Type Department Care Team (Late st Contact Info) Description 07/06/2020 7:30 AM EST - 07/06/2020 8:00 AM EST Surgery [place] [address] Emerson Chand MD [facility] [place] [address] INJECTION, FACET JOINT,W/FLUORO, CERVICAL, SINGLE (WRVU 1.82) [...] You were seen today by Surgeon(s): Emerson hCand MD The following was performed: Procedure(s) (LRB): [...] Post -Procedure Pain Log Patient: Grayson Dodd [facility] [id number] It is important for you to keep [...] date: 1960 Admit date: 07/06/2020 Attending Physician: No att. providers found PREPROCEDURE HISTORY AND PHYSICAL [...] file Gets together: Not on file Attends zoroastrian service: Not on file Active member of [...] Attending [facility] [place] [address] / documented in this encounter Miscellaneous Notes * Op Note - Emerson Chand MD - 07/06/2020 8:33 AM EST Pain Management Operative Note Patient Name: Grayson Dodd III : [id number] MR#: [id number] Case Date: 07/06/2020 Surgeon: Surgeon(s) and Role: [...] bupivacaine with dexamethasone 5 mg injected Mr. Floyd vital signs were stable throughout [...] Attending [facility] [place] [address] / CC: Didier Romero MD [address] [place] [address] documented in this encounter Plan of Treatment Upcoming Encounters Date Type Department Care Team (Late st Contact Info) Description 07/08/2024 8:45 AM EST Office Visit Dermatology at [place] [address] [place] [address] Jake Galvez MD [address], [place] [address] documented as of this encounter Visit Diagnoses [...] PRN, Starting on 07/06/20 at 0826, Until Tu07/06/20 at 1035, Intra-Operative (Intra-Procedure), Routine Given 07/06/2020 8:26 AM EST 1 mL documented in this encounter Active and Recently Administered Medications Times are shown in EST. PRN Medication Order 07/04/2020 07/05/2020 07/06/2020 BUpivacaine (pf) (Marcaine) (2.5 mg/mL) 0.25% injection (CANCELED) ONCE PRN, Starting on 07/06/20 at 0826, Until Tu07/06/20 at 1035, Intra-Operative (Intra-Procedure), Routine 825 (Given [...] MD) documented in this encounter Care Teams Production Utility Worker Relationship Specialty Start Date End Date Didier Romero MD [address] [place] [address] PCP - General Family Medicine 01/11/17 01/02/24 documented as of this encounter
--- OUTSIDE RECORDS SUMMARY | 2024-05-30 11:01 | XMS_ITS | Encounter Summary ---
Author Organization [facility] [place] [address] Care Team Providers Care Food Writer Name Role Phone Didier Romero MD Primary Care Provider + Encounter Details Date Type Department Care Team (Late st Contact Info) Description 10/08/2020 Ancillary Procedure Radiology Library at [place] [phone] Didier Romero MD [facility] [place] [address] Social History Tobacco Use Types Packs/Day Years [...] 8:45 AM EST Office Visit Dermatology at [place] [address] [place] [phone] Jake Galvez MD [address], [place] [address] documented as of this encounter Procedures Procedure Name Priority Date/Time Associated Diagnosis Comments FILM LIBRARY STORAGE ONLY MR SPINE Routine 10/08/2020 12:00 AM EDT documented in this encounter Results * Film Library- Storage Only MR Spine (10/08/2020 12:00 AM EDT) Narrative [facility] - 11/25/2020 3:26 PM EDT This exam is auto-finalizing. It's purpose is for storage only. Didier Romero MD IMG FILM LIBRARY ORDERABLES Performing Organization Address City/State/[facility] Co de Phone Number [place], [place] documented in this encounter Visit Diagnoses Not on filedocumented in this encounter Care Teams Food Writer Relationship Specialty Start Date End Date Didier Romero MD [address] [place] [address] PCP - General Family Medicine 01/11/17 01/02/24 documented as of this encounter
--- OUTSIDE RECORDS SUMMARY | 2024-05-30 11:01 | XMS_ITS | Encounter Summary ---
[place] [address] Care Team Providers Care Installation & Maintenance Executive Name Role Phone Didier Romero MD Primary [...] Expiration Date Visits Re quested Visits Authorized [id number] 1 1 Encounter Details Date Type Department Care Team (Late Contact Info) Description 07/26/2020 7:30 AM EST Ancillary [place] [phone] Emerson Chand MD [facility] [place] [address] Pain Social History Tobacco Use Types Packs/Day [...] 8:45 AM EST Office Visit Dermatology at [place] [address] [place] [phone] Jake Galvez MD [address], [place] [address] documented as of this encounter Procedures Procedure Name Priority Date/Time Associated Diagnosis Comments FILM LIBRARY STORAGE ONLY PAIN CLINIC C ARM Routine 07/26/2020 12:18 PM EST Pain documented in this encounter Results * Film Library- Storage Only pain Clinic C-Arm (07/26/2020 12:18 PM EST) Narrative [facility] - 07/26/2020 12:18 PM EST See PACS for result report. Emerson Chand MD IMG FILM LIBRARY ORD ERABLES Performing Organization Address City/State/[facility] de Phone Number [place], [place] documented in this encounter Visit Diagnoses Diagnosis Pain Generalized pain documented in this encounter Care Teams Installation & Maintenance Executive Relationship Specialty Start Date End Date Didier Romero MD [address] [place] [address] PCP - General Family Medicine 01/11/17 01/02/24 documented as of this encounter
--- OUTSIDE RECORDS SUMMARY | 2024-05-30 11:01 | XMS_ITS | Encounter Summary ---
[place] [address] Care Team Providers Care Auger Mill Operator Name Role Phone Didier Romero MD Primary Care Provider + Encounter Details Date Type Department Care Team (Late st Contact Info) Description 12/01/2020 Telephone [facility] [place] [phone] Courtney Clifton RN Social History Tobacco Use [...] 8:45 AM EST Office Visit Dermatology at [place] [address] [place] [address] Jake Galvez MD [address], [place] [address] documented as of this encounter Visit Diagnoses Not on filedocumented in this encounter Care Teams Auger Mill Operator Relationship Specialty Start Date End Date Didier Romero MD [facility] [place] [address] PCP - General Family Medicine 01/11/17 01/02/24 documented as of this encounter
--- OUTSIDE RECORDS SUMMARY | 2024-05-30 11:01 | XMS_ITS | Encounter Summary ---
Author Organization [facility] Address [facility] [place] [address] Care Team Providers Care Home Care Assistant Name Role Phone Didier Romero MD Primary Care Provider + Reason for Referral * Consultation (Routine) - Closed Specialty Diagnoses / Procedures Referred By Contac t Referred To Contact Pain and Sp[facility] Diagnoses Chronic right-sided low back pain with bilateral sciatica Lumbar spondylosis History of lumbar fusion Geoff Lanier MD [facility] PHYSICAL MEDICINE [place] [address] Emerson Chand MD [facility] [place] [address] Referral ID Status Reason Start Date Expiration Date V isits Requested Visits Authorized [id number] Closed Pain Consult 12/16/2020 12/16/2021 3 3 [...] Expiration Date Visits Re quested Visits Authorized [id number] 1 1 Encounter Details Date Type Department Care Team (Late st Contact Info) Description 12/16/2020 10:30 AM EDT Office Visit [place] [address] Geoff Lanier MD [facility] DR PHYSICAL MEDICINE [place] [address] Chronic right-sided low back pain with bilateral [...] 500 mg as needed. ??? flu vac [id number] 36mos up,PF, (Afluria Qd 2019-,3yr up,,PF,) 60 [...] possibility that the lower extremity symptoms are personnel representative of neurogenic claudication, but this would [...] rehabilitation program for the purpose of functional latter-day. Following our discussion, the patient stated that [...] 8:45 AM EST Office Visit Dermatology at [place] [address] [facility] [place] [phone] Jake Galvez MD [address] [facility], [place] [address] Scheduled Referrals Name Type Priority Associated Diagnoses [...] fusion documented in this encounter Care Teams Home Care Assistant Relationship Specialty Start Date End Date Didier Romero MD [address] [place] [address] PCP - General Family Medicine 01/11/17 01/02/24 documented as of this encounter
--- OUTSIDE RECORDS SUMMARY | 2024-05-30 11:01 | XMS_ITS | Encounter Summary ---
Author Organization [facility] [place] [address] Care Team Providers Care Ship Mate Name Role Phone Didier Romero MD Primary [...] Expiration Date Visits Re quested Visits Authorized [id number] 1 1 Encounter Details Date Type Department Care Team (Latest Contact Info) Description 11/18/2020 7:26 AM EDT - 11/18/2020 8:59 AM EDT Hospital En[place] [phone] Emerson Chand MD [facility] [place] [address] Spondylosis of cervical region without myelopathy or [...] 4-6 hours after your procedure. {CHECK BOX SELECTION:52105} If you have diabetes, monitor your blood sugars frequently. If your blood sugar increases and is of concern, contact your Primary Care Provider. You received the following medications: Medications Given During Procedure Date/Time Order Dose Route Action {\field{\*\fldinst HYPERLINK ecmd:ord?xb=[id number]}{\fldrslt \cf18 11/18/2020 0829}} dexamethasone (PF) (Decadron) (10 mg/mL) injection 10 mg Epidural Canceled Entry {\field{\*\fldinst HYPERLINK ecmd:ord?fa=[id number]}{\fldrslt \cf18 11/18/2020 0826}} iohexoL (Omnipaque) (240 mg/mL) injection solution 2 mL Other Given {\field{\*\fldinst HYPERLINK ecmd:ord?oq=[id number]}{\fldrslt \cf18 11/18/2020 0826}} lidocaine (pf) (Xylocaine) (20 [...] -Procedure Pain Log Patient: Grayson Dodd III [id number] It is important for you to keep [...] 500 mg as needed. 02/03/2021 flu vac [id number] 36mos up,PF, (Afluria Qd 2019-,3yr up,,PF,) 60 [...] 500 mg as needed. ??? flu vac [id number] 36mos up,PF, (Afluria Qd ,3yr up,,PF,) 60 [...] Fellow [facility] [address] [address] [email or web address] documented in this encounter Miscellaneous Notes * Op Note - Emerson Chand MD - 11/18/2020 8:26 AM EDT Pain Management Operative Note Patient Name: Grayson Dodd III : [id number] MR#: [id number] Case Date: 11/18/2020 Surgeon: Surgeon(s) and Role: [...] Dodd III Provider: MD Lm Polk MD Thomas Spenser Dodd III has been referred to the [...] Lidocaine was injected at each level. Mr. Dodd's vital signs were stable throughout [...] Attending [facility] [place] [address] / CC: Didier Romero MD [address] [place] [address] [place] [address] documented in this encounter Plan of Treatment Upcoming Encounters Date Type Department Care Team (Late st Contact Info) Description 07/08/2024 8:45 AM EST Office Visit Dermatology at [place] [address] [place] [address] Jake Galvez MD [address] [facility] [place] [address] documented as of this encounter Visit Diagnoses [...] block) documented in this encounter Care Teams Ship Mate Relationship Specialty Start Date End Date Didier Romero MD [address] [place] [address] PCP - General Family Medicine 01/11/17 01/02/24 documented as of this encounter
--- OUTSIDE RECORDS SUMMARY | 2024-05-30 11:01 | XMS_ITS | Encounter Summary ---
Author Organization [facility] [place] [address] Care Team Providers Care Tape Edge Machine Operator Name Role Phone Didier Romero [...] Expiration Date Visits Re quested Visits Authorized [id number] 1 1 Encounter Details Date Type Department Care Team (Late st Contact Info) Description 11/18/2020 8:00 AM EDT Ancillary Procedure [place] [phone] Emerson Chand MD [facility] [place] [address] Pain Social History Tobacco Use Types Packs/Day [...] 8:45 AM EST Office Visit Dermatology at [place] [address] [place] [address] Jake Galvez MD [address], [place] [address] documented as of this encounter Procedures Procedure Name Priority Date/Time Associated Diagnosis Comments FILM LIBRARY STORAGE ONLY PAIN CLINIC C ARM Routine 11/18/2020 3:58 PM EDT Pain documented in this encounter Results * Film Library- Storage Only pain Clinic C-Arm (11/18/2020 3:58 PM EDT) Narrative [facility] - 11/18/2020 3:58 PM EDT See PACS for result report. Emerson Chand MD IMG FILM LIBRARY ORD ERABLES Performing Organization Address City/State/[facility] Co de Phone Number [place], [place] documented in this encounter Visit Diagnoses Diagnosis Pain Generalized pain documented in this encounter Care Teams Tape Edge Machine Operator Relationship Specialty Start Date End Date Didier Romero MD [address] [place] [address] PCP - General Family Medicine 01/11/17 01/02/24 documented as of this encounter
--- OUTSIDE RECORDS SUMMARY | 2024-05-30 11:01 | XMS_ITS | Encounter Summary ---
[place] [address] Care Team Providers Care Beef Boner Name Role Phone Didier Romero MD Primary Care Provider + Encounter Details Date Type Department Care Team (Late st Contact Info) Description 12/15/2020 Telephone [facility] [place] [phone] Denia Egan LNA Social History Tobacco Use [...] AM EDT Contact made with patient or retail account representative as identified in contacts 1. Patient instructed to arrive at 0700 on 12/16/20 with their industrial truck driver for their cervical RFA procedure. [...] 8:45 AM EST Office Visit Dermatology at [place] [address] [facility] [place] [phone] Jake Galvez MD [address], [place] [address] documented as of this encounter Visit Diagnoses Not on filedocumented in this encounter Care Teams Beef Boner Relationship Specialty Start Date End Date Didier Romero MD [address] [place] [address] PCP - General Family Medicine 01/11/17 01/02/24 documented as of this encounter
--- OUTSIDE RECORDS SUMMARY | 2024-05-30 11:01 | XMS_ITS | Encounter Summary ---
[place] [address] Care Team Providers Care Importer Or Exporter Name Role Phone Didier Romero MD Primary Care Provider + Encounter Details Date Type Department Care Team (Late st Contact Info) Description 07/06/2020 Telephone [facility] [place] [phone] Kayley Mckeon, RN Social History Tobacco Use [...] ASA hold instructions - h/o Myocardial Infarction ([place]): no - h/o Coronary Artery Disease (CAD): [...] Chand MD. . Disposition: Patient transferred to blade groover to arrange requested injection. Patient's questions regarding [...] 8:45 AM EST Office Visit Dermatology at [place] [address] [place] [address] Jake Galvez MD [address] [facility] [place] [address] documented as of this encounter Visit Diagnoses Not on filedocumented in this encounter Care Teams Importer Or Exporter Relationship Specialty Start Date End Date Didier Romero MD [address] [place] [address] PCP - General Family Medicine 01/11/17 01/02/24 documented as of this encounter
--- OUTSIDE RECORDS SUMMARY | 2024-05-30 11:01 | XMS_ITS | Encounter Summary ---
Author Organization [facility] Address [facility] [place] [address] Care Team Providers Care Filler Shredder Helper Name Role Phone Didier Romero MD Primary Care Provider + Encounter Details Date Type Department Care Team (Late st Contact Info) Description 09/06/2020 1:30 PM EDT Office Visit [place] [address] Geoff Lanier MD [facility] [address] PHYSICAL MEDICINE [place] [address] Cervicalgia; Cervical spondylosis; Myofascial pain Social History [...] 500 mg as needed. ??? flu vac [id number] 36mos up,PF, (Afluria Qd ,3yr up,,PF,) 60 [...] be given to enrollment in the functional worship program once interventional treatment has been completed. The patient may continue working at part-time modified duty status with the restrictions previouslyassigned to him by his primary treating provider, Mary AnsleyKristin. If evaluation of chronic low back pain [...] 8:45 AM EST Office Visit Dermatology at [place] [address] [place] [phone] Jake Galvez MD [address], [place] [address] documented as of this encounter Visit Diagnoses Diagnosis Cervicalgia Cervical spondylosis Cervical spondylosis without myelopathy Myofascial pain Mylagia and myositis, unspecified documented in this encounter Care Teams Filler Shredder Helper Relationship Specialty Start Date End Date Didier Romero MD [facility] [place] [address] PCP - General Family Medicine 01/11/17 01/02/24 documented as of this encounter
--- OUTSIDE RECORDS SUMMARY | 2024-05-30 11:01 | XMS_ITS | Encounter Summary ---
[place] [address] Care Team Providers Care Front End Developer Javascript Html Css Name Role Phone Didier Romero MD Primary Care Provider + Encounter Details Date Type Department Care Team (Late st Contact Info) Description 01/31/2021 Telephone [place] [phone] Denia Egan LNA Social History Tobacco Use [...] Contact made with patient or sales representative publications as identified in contacts 1. Patient instructed to arrive at 0830 on 02/03/21 with their regional intermodal truck driver for their caudal epidural injection procedure. Please [...] 8:45 AM EST Office Visit Dermatology at [place] [address] [facility] [place] [address] Jake Galvez MD [address], [place] [address] documented as of this encounter Visit Diagnoses Not on filedocumented in this encounter Care Teams Front End Developer Javascript Html Css Relationship Specialty Start Date End Date Didier Romero MD NPI: [id number] [place] [address] PCP - General Family Medicine 01/11/17 01/02/24 documented as of this encounter
--- OUTSIDE RECORDS SUMMARY | 2024-05-30 11:01 | XMS_ITS | Encounter Summary ---
[place] [address] Care Team Providers Care Crisis Therapist Name Role Phone Didier Rmoero MD Primary Care Provider + Encounter Details Date Type Department Care Team (Late st Contact Info) Description 10/15/2020 Notes Only [facility] [place] [phone] Mary Mcneil Social History Tobacco Use Types [...] However, based on the known timeline of cwjkqiankjuh-lmmqdjgqb-tihsoph (HPA) axis suppression following epidural and intraarticular [...] 8:45 AM EST Office Visit Dermatology at [place] [address] [facility] [place] [address] Jake Galvez MD [address] [facility], [place] [address] documented as of this encounter Visit Diagnoses Not on filedocumented in this encounter Care Teams Crisis Therapist Relationship Specialty Start Date End Date Didier Romero MD [address] [place] [address] PCP - General Family Medicine 01/11/17 01/02/24 documented as of this encounter
--- OUTSIDE RECORDS SUMMARY | 2024-05-30 11:01 | XMS_ITS | Encounter Summary ---
Author Organization [facility] Address [facility] [place] [address] Care Team Providers Care Heavy Forger Name Role Phone Didier Romero MD Primary Care Provider + Reason for Visit * Reason Comments Follow-up Back Pain Encounter Details Date Type Department Care Team (Latest Contact Info) Description 01/13/2021 3:30 PM EDT Office Visit [place] [address] Emerson Chand MD [facility] [place] [address] Radiculopathy of lumbosacral region (Primary Dx) Social [...] Chand MD - 01/13/2021 3:30 PM EDT [facility] - Follow [...] needed., Disp: , Rfl: ??? flu vac [id number] 36mos up,PF, (Afluria Qd 2019-,3yr up,,PF,) 60 [...] Attending [facility] [place] [address] / CC: Anisha Xie, PRAFUL [address] [place] [address] documented in this encounter Plan of Treatment Upcoming Encounters Date Type Department Care Team (Late st Contact Info) Description 07/08/2024 8:45 AM EST Office Visit Dermatology at [place] [address] [place] [phone] Jake Galvez MD [address], [place] A DERMATOLOGY [place], [place] [address] documented as of this encounter Results * [...] who have questions please contact the health home day care provider that requested your imaging first. ? Narrative [...] patients who have questions please contactthe health home day care provider that requested your imaging first. Electronically signed by: Loki Frazier MD, [facility]([phone]), at 01/13/2021 4:52 PM Emerson Chand MD IMG DX ORDERABLES documented in this encounter Visit Diagnoses Diagnosis Radiculopathy of lumbosacral region- Primary Thoracic or lumbosacral neuritis or radiculitis, unspecified Radiculopathy of lumbosacral region Thoracic or lumbosacral neuritis or radiculitis, unspecified documented in this encounter Care Teams Heavy Forger Relationship Specialty Start Date End Date Didier Romero MD [address] [place] [address] PCP - General Family Medicine 01/11/17 01/02/24 documented as of this encounter
--- OUTSIDE RECORDS SUMMARY | 2024-05-30 11:01 | XMS_ITS | Encounter Summary ---
Author Organization [facility] [place] [address] Care Team Providers Care Cleaning Custodian Name Role Phone Didier Romero MD Primary [...] Expiration Date Visits Re quested Visits Authorized [id number] 1 1 Encounter Details Date Type Department Care Team (Late st Contact Info) Description 11/18/2020 8:00 AM EDT - 11/18/2020 8:30 AM EDT [place] [phone] Emerson Chand MD [facility] [place] [address] INJECTION, FACET JOINT,W/FLUORO, CERVICAL, SINGLE (WRVU 1.82) [...] 4-6 hours after your procedure. {CHECK BOX SELECTION:41899} If you have diabetes, monitor your blood sugars frequently. If your blood sugar increases and is of concern, contact your Primary Care Provider. You received the following medications: Medications Given During Procedure Date/Time Order Dose Route Action {\field{\*\fldinst HYPERLINK ecmd:ord?sc=[id number]}{\fldrslt \cf18 11/18/2020 0829}} dexamethasone (PF) (Decadron) (10 mg/mL) injection 10 mg Epidural Canceled Entry {\field{\*\fldinst HYPERLINK ecmd:ord?rg=[id number]}{\fldrslt \cf18 11/18/2020 0826}} iohexoL (Omnipaque) (240 mg/mL) injection solution 2 mL Other Given {\field{\*\fldinst HYPERLINK ecmd:ord?ks=[id number]}{\fldrslt \cf18 11/18/2020 0826}} lidocaine (pf) (Xylocaine) (20 [...] -Procedure Pain Log Patient: Grayson Dodd JOSE [id number] It is important for you to keep [...] 500 mg as needed. 02/03/2021 flu vac [id number] 36mos up,PF, (Afluria Qd 2019-,3yr up,,PF,) 60 [...] 500 mg as needed. ??? flu vac [id number] 36mos up,PF, (Afluria Qd ,3yr up,,PF,) 60 [...] Fellow [facility] [address] [address] [email or web address] documented in this encounter Miscellaneous Notes * Op Note - Emerson Chand MD - 11/18/2020 8:26 AM EDT Pain Management Operative Note Patient Name: Grayson Dodd III : [id number] MR#: [id number] Case Date: 11/18/2020 Surgeon: Surgeon(s) and Role: [...] III Provider: MD Lm Polk MD Thomas J Yousif GARCIA has been referred to the Pain Management [...] Attending [facility] [place] [address] / CC: Didier Romero MD [address] [place] [address] [place] [address] documented in this encounter Plan of Treatment Upcoming Encounters Date Type Department Care Team (Late st Contact Info) Description 07/08/2024 8:45 AM EST Office Visit Dermatology at [place] [address] [facility] [place] [address] Jake Galvez MD [address] [facility], [place] [address] documented as of this encounter Visit Diagnoses [...] Ginger 11/18/20 at 1100, Intra-Operative (Intra-Procedure), Routine 825 (Given - Provid er: Lm Lockhart MD - Comment: cervical block) documented in this encounter Care Teams Cleaning Custodian Relationship Specialty Start Date End Date Didier Romero MD [address] [place] [address] PCP - General Family Medicine 01/11/17 01/02/24 documented as of this encounter
--- OUTSIDE RECORDS SUMMARY | 2024-05-30 11:01 | XMS_ITS | Encounter Summary ---
[place] [address] Care Team Providers Care Steam Pan Sponger Name Role Phone Didier Romero MD Primary [...] Expiration Date Visits Re quested Visits Authorized [id number] 1 1 Encounter Details Date Type Department Care Team (Latest Contact Info) Description 07/06/2020 6:59 AM EST - 07/06/2020 8:33 AM [facility] Hospital [place] [address] [facility] [place] [address] Discharge Disposition: Home Social History Tobacco Use [...] -Procedure Pain Log Patient: Grayson Dodd III [id number] It is important for you to keep [...] file Gets together: Not on file Attends oriental orthodox service: Not on file Active member of [...] Attending [facility] [place] [address] / documented in this encounter Miscellaneous Notes * Op Note - Emerson Chand MD - 07/06/2020 8:33 AM EST Pain Management Operative Note Patient Name: Grayson Dodd III : [id number] MR#: [id number] Case Date: 07/06/2020 Surgeon: Surgeon(s) and Role: [...] Attending [facility] [place] [address] / CC: Didier Romero MD [address] [place] [address] documented in this encounter Plan of Treatment Upcoming Encounters Date Type Department Care Team (Late st Contact Info) Description 07/08/2024 8:45 AM EST Office Visit Dermatology at [place] [address] [place] [phone] Jake Galvez MD 580 [facility], [address] A DERMATOLOGY [place], [place] [address] documented as of this encounter Visit Diagnoses [...] Until Sun07/06/20 at 1035, Intra-Operative (Intra-Procedure), Routine 0827 (Given - Provid er: Emerson Chand MD) iohexoL (Omnipaque) (240 mg/mL) injection solution (CANCELED) ONCE PRN, Starting on Sun07/06/20 at 0826, Until Sun07/06/20 at 1035, Intra-Operative (Intra-Procedure), Routine 0826 (Given - Provid er: Emerson Chand MD) documented in this encounter Care Teams Steam Pan Sponger Relationship Specialty Start Date End Date Didier Romero MD [address] [place] [address] PCP - General Family Medicine 01/11/17 01/02/24 documented as of this encounter
--- OUTSIDE RECORDS SUMMARY | 2024-05-30 11:01 | XMS_ITS | Encounter Summary ---
Author Organization [facility] [place] [address] Care Team Providers Care Executive Search Consultant Name Role Phone Didier Romero MD Primary Care Provider + Reason for Visit * Auth/Cert Specialty Diagnoses / Procedures Referred By Contac t Referred To Contact Diagnoses Cervical spondylosis Cervical Spondylosis Procedures PRO DSTR PARAVERTEBRAL FCT JNT NRVES CERVICAL OR THORACIC SINGLE RADIOFREQUENCY ABLATION,SINGLE FACET JOINT,CERVICAL (WRVU 3.84) Referral ID Status Reason Start Date Expiration Date Visits Re quested Visits Authorized [id number] 1 1 Encounter Details Date Type Department Care Team (Late Contact Info) Description 12/16/2020 7:30 AM EDT Ancillary Procedure [place] [address] Emerson Chand MD [facility] [place] [address] Pain Social History Tobacco Use Types Packs/Day [...] AM EST Office Visit Dermatology at [address] [place] [address] Jake Galvez MD [address] [facility] [address], [place] [place] [address] documented as of this encounter Procedures Procedure Name Priority Date/Time Associated Diagnosis Comments FILM LIBRARY STORAGE ONLY PAIN CLINIC C ARM Routine 12/16/2020 10:56 AM EDT Pain documented in this encounter Results * Film Library- Storage Only pain Clinic C-Arm (12/16/2020 10:56 AM EDT) Narrative [facility][NOTE 3] - 12/16/2020 10:56 AM EDT See PACS for result report. Emerson Chand MD IMG FILM LIBRARY ORD ERABLES [place], [place] documented in this encounter Visit Diagnoses Diagnosis Pain Generalized pain documented in this encounter Care Teams Executive Search Consultant Relationship Specialty Start Date End Date Didier Romero MD [address] [place] [address] PCP - General Family Medicine 01/11/17 01/02/24 documented as of this encounter
--- OUTSIDE RECORDS SUMMARY | 2024-05-30 11:02 | XMS_ITS | Encounter Summary ---
[place] [address] Care Team Providers Care Fire Marshal Refinery Name Role Phone Didier Romero MD Primary Care Provider + Encounter Details Date Type Department Care Team (Late st Contact Info) Description 06/01/2020 Telephone [place] [address] [place] Banegas Social History Tobacco [...] - 06/01/2020 10:07 AM EST Update- Patient's corporate associate attorney has advised to proceed with the procedure [...] 8:45 AM EST Office Visit Dermatology at [place] [address] [facility] [place] [address] Jake Galvez MD [address], [place] [address] documented as of this encounter Visit Diagnoses Not on filedocumented in this encounter Care Teams Fire Marshal Refinery Relationship Specialty Start Date End Date Didier Romero MD [address] [place] [address] PCP - General Family Medicine 01/11/17 01/02/24 documented as of this encounter
--- OUTSIDE RECORDS SUMMARY | 2024-05-30 11:02 | XMS_ITS | Clinical Summary ---
Author Organization [facility] Address [address] [place] [address] Care Team Providers Care Consultant Electronics Name Role Phone Unknown, Provider Primary Care Provider Unava ilable Encounters Date Type Department Care Team Description 03/21/2024 Lab [facility] - [facility] [address] [place] [address] Richard Hidalgo MD Encounter for screening for malignant neoplasm of colon from Last 3 Months Social History Tobacco Use Types Packs/Day Years Used Date Smoking Tobacco: Never Assessed Sex and Gender Information Value Date Recorded Sex Assigned at Not on file Legal Sex Male 13:01 EDT Gender Identity Not on file Sexual Orientation Not on file Plan of Treatment Health Maintenance Due Date Last Done Comments COVID-19 Vaccine ( season) 2024 RSV Immunization ( o r 60+ Years) (1 - 1-dose 75+ series) 01/03/2036 Hepatitis C Screen Completed 08/13/2023 Procedures Procedure Name Priority Date/Time Associated Diagnosis Comments SURGICAL PATHOLOGY Today 03/21/2024 11 :55 EDT Encounter for screening for malignant neoplasm of colon HEPATITIS C AB W REFLEX TO HCV RNA BY PCR Routine 08/13/2023 12:00 EDT from Last 3 Months or Most Recently Relevant to Health Maintenance Results * SURGICAL PATHOLOGY (03/21/2024 11:55 EDT) Note to Patient The following pathology results have been interpreted by your pathologist and may be available to you before your health provider has had the opportunity to review them. Please allow time for your provider to receive these results and explore management options, if applicable. 03/25/2024 11:52 [facility] Final Diagnosis A. COLON, 65 CM, POLYP, BIOPSY: - Tubular adenoma. - Deeper sections x3 examined. 03/25/2024 11:52 [facility] Attestation There was significant resident/fellow involvement in the diagnostic evaluation of this case. By the signature below, the attending physician certifies that they have personally conducted a gross and/or microscopic examination of the described specimens and rendered or confirmed the above diagnosis. 03/25/2024 11:52 [facility] at 1152 Clinical History Screening for colon cancer 03/25/2024 11:52 [facility] Gross Description A. Received in formalin labelled with proper patient identification (initials L, T) and polyp at 65 cm is a single valdivia-yellow focally valdivia-brown tissue (0.5 x 0.3 x 0.3 cm). The specimen is submitted intact in A1. Pb [place] 03/22/2024 13:44 03/25/2024 11:52 [facility] Resident/Richard w: Sherry Stallworth MB [facility] 03/25/2024 11:52 [facility] Performing Lab [facility] 03/25/2024 11:52 [facility] Scanned Images 03/25/2024 11:52 [facility] Tissue COLON STRUCTURE / Unknown 03/21/2024 11:55 EDT 03/21/2024 17:58 EDT us Richard Hidalgo MD PATHOLOGY ORDERABLES Final Resu lt [facility] [address] [place] [address] * HEPATITIS C AB W REFLEX TO HCV RNA BY PCR (08/13/2023 12:00 EDT) Hep C Antibody Negative Negative 08/14/2023 19:49 [facility] Blood VENOUS BLOOD / Unknown 08/13/2023 12:00 EDT 08/14/2023 18:03 EDT us Provider Outr Resulting Lab CHEMISTRY & BLOOD GA S ORDERABLES Final Result [facility] [address] [place] [address] from Last 3 Months or Most Recently Relevant to Health Maintenance Insurance [employer] [facility] Care Teams Consultant Electronics Relationship Specialty Start Date End Date Unknown, Provider, PCP - General 03/13/13
--- OUTSIDE RECORDS SUMMARY | 2024-05-30 11:02 | XMS_ITS | Encounter Summary ---
[place] [address] Care Team Providers Care Glass Etcher Name Role Phone Didier Romero MD Primary Care Provider + Reason for Visit * Reason Comments Follow-up Encounter Details Date Type Department Care Team (Late st Contact Info) Description 08/18/2019 1:45 PM EDT Office Visit Dermatology at [address] [address] Jake Galvez MD [address] [place] [address], [facility] [place] [address] History of SCC (squamous cell carcinoma) of [...] mm Breslow depth, July 2011 diagnosed in [place], right inferior axillary vault area, with a [...] 8:45 AM EST Office Visit Dermatology at [address] [address] Jake Galvez MD [address] [facility] [place] [address] documented as of this encounter Visit Diagnoses Diagnosis History of SCC (squamous cell carcinoma) of skin Personal history of other malignant neoplasm of skin History of malignant melanoma Personal history of malignant melanoma of skin AK (actinic keratosis) Actinic keratosis documented in this encounter Care Teams Glass Etcher Relationship Specialty Start Date End Date Didier Romero MD [facility] [place] [address] PCP - General Family Medicine 01/11/17 01/02/24 documented as of this encounter
--- OUTSIDE RECORDS SUMMARY | 2024-05-30 11:02 | XMS_ITS | Encounter Summary ---
Author Organization [facility] Address [facility] [place] [address] Care Team Providers Care Residence Supervisor Name Role Phone Jose Calvo MD Primary Care Provider [phone] Encounter Details Date Type Department Care Team (Late st Contact Info) Description 09/23/2012 11:43 AM EDT - 09/23/2012 11:59 PM EDT Hospital Encounter XRay at [address] [place] [address] Hand pain Social History Tobacco Use Types [...] Sig Dispensed Refills Start Date End Date omeprazole (PRILOSEC) 20 mg capsule Take 20 mg by mouth daily. allopurinol (ZYLOPRIM) 300 mg tablet Take 300 mg by mouth daily. 01/01/2023 aspirin 81 mg EC tablet Take 81 mg by mouth daily. 01/03/2024 irbesartan (AVAPRO) 300 mg tablet Take 300 mg by mouth nightly. 08/18/2019 albuterol-ipratropium (COMBIVENT) 18-103 mcg/actuation Aerosol Inhale 2 puffs into the lungs every 6 hours as needed. 01/03/2024 testosterone (ANDROGEL) 1 %(50 mg/5 gram) GlPk 50 MG/5 GRAM, TD, Once daily 07/11/2010 12/16/2020 documented as of this encounter Plan of Treatment Upcoming Encounters Date Type Department Care Team (Late st Contact Info) Description 07/08/2024 8:45 AM EST Office Visit Dermatology at [place] [address] [place] [address] Jake Galvez MD [address], [place] [address] documented as of this encounter Procedures Procedure [...] for the basal (1st carpometacarpal) and triscaphe (fvlvihlko-ywtdwnfry-ynceoill) joints. ??Here there is significant joint space [...] for the basal (1st carpometacarpal) and triscaphe (vaxdevjgv-wnrlyakpl-opwrubsa) joints. Here there issignificant joint space narrowing, [...] limb documented in this encounter Care Teams Residence Supervisor Relationship Specialty Start Date End Date Jose Calvo MD PCP - General 06/13/10 09/13/15 documented as of this encounter
--- OUTSIDE RECORDS SUMMARY | 2024-05-30 11:02 | XMS_ITS | Encounter Summary ---
Author Organization [facility] [place] [address] Care Team Providers Care Platform Material Handler Manager Name Role Phone Jose Calvo MD Primary Care Provider [phone] Reason for Referral * Occupational Therapy (Routine) - Complete - Patient Will Schedule External Appt Specialty Diagnoses / Procedures Referred By Everett jacobson Referred To Contact Occupational Therapy Diagnoses Wrist pain Lisandra Le PA [facility] [place] [address] Referral ID Status Reason Start Date Expiration Date Visits Requested Visits Authorized [id number] Complete - Patient Will Schedule External Appt Evaluate and Treat 09/23/2012 03/22/2013 1 1 Reason for Visit * Reason Comments Right Hand Pain sp r ctr dos 10/20/19 06 [facility] Encounter Details Date Type Department Care Team (Late st Contact Info) Description 09/23/2012 12:45 PM EDT Office Visit [place] [address] Dandy Mitchell MD [facility] [place] [address] Lisandra Le PA [facility] [place] [address] Wrist pain (Primary Dx) Discharge Disposition: Home [...] Grayson Dodd III AGE: 52 y.o. MR#: [id number] DATE OF VISIT: 09/23/2012 DATE OF INJURY/ONSET: July 2012 STAFF: Dr. Mitchell CHIEF COMPLAINT: Right radial wrist pain HISTORY OF PRESENT ILLNESS: Mr. Dodd is a right hand dominant 52 y.o. male who comes into clinic today for evaluation of the right wrist. He was referred to [facility] Orth[facility] by JOSE CALVO MD. The patient states that he has been having worsening radial sided wrist pain for the past two months. He denies having any specific trauma. He underwent right carpal tunnel release, FCR release, and palmarfasciectomy for the ring and small fingers in October 2007 at [facility] in [place]. He states that he had excellent symptom [...] FDP, EPL, FPL bilaterally. Power and pinch product managent intern are equal bilaterally, although painful on the [...] 8:45 AM EST Office Visit Dermatology at [place] [address] [facility] [place] [address] Jake Galvez MD [address] [facility], [place] [place] [address] Scheduled Referrals Name Type Priority Associated Diagnoses Order Schedule Referral to Occupational Therapy Outpatient Referral Routine Wrist pain Ordered: 09/23/2012 documented as of this encounter Visit Diagnoses Diagnosis Wrist pain- Primary Pain in joint, forearm documented in this encounter Care Teams Platform Material Handler Manager Relationship Specialty Start Date End Date Jose Calvo MD PCP - General 06/13/10 09/13/15 documented as of this encounter
--- OUTSIDE RECORDS SUMMARY | 2024-05-30 11:02 | XMS_ITS | Encounter Summary ---
Author Organization [facility] [place] [address] Care Team Providers Care Delivery Architect Name Role Phone Didier Romero MD Primary Care Provider + Encounter Details Date Type Department Care Team (Late st Contact Info) Description 05/20/2020 Notes Only [facility] [place] [phone] Gillian Courtney Social History Tobacco Use Types [...] Hold Documentation Patient: Grayson Dueñas Yousif GARCIA [id number] Romero to temporarily [...] 8:45 AM EST Office Visit Dermatology at [place] [address] [place] [address] Jake Galvez MD [address], [place] [address] documented as of this encounter Visit Diagnoses Not on filedocumented in this encounter Care Teams Delivery Architect Relationship Specialty Start Date End Date Didier Romero MD [address] [place] [address] PCP - General Family Medicine 01/11/17 01/02/24 documented as of this encounter
--- OUTSIDE RECORDS SUMMARY | 2024-05-30 11:02 | XMS_ITS | Encounter Summary ---
[place] [address] Care Team Providers Care Data Processing Operator Name Role Phone Didier Romero MD Primary Care Provider + Reason for Visit * Reason Comments Follow-up Encounter Details Date Type Department Care Team (Late st Contact Info) Description 06/05/2017 4:30 PM EST Office Visit Dermatology at [address] [address] Jake Galvez MD [address] [facility] [place] [address] History of SCC (squamous cell carcinoma) of [...] AM EST Office Visit Dermatology at [address] [address] Jake Galvez MD [address] [place] [address], [facility] [place] [address] documented as of this encounter Visit Diagnoses Diagnosis History of SCC (squamous cell carcinoma) of skin Personal history of other malignant neoplasm of skin History of malignant melanoma Personal history of malignant melanoma of skin Eczema, unspecified type documented in this encounter Care Teams Data Processing Operator Relationship Specialty Start Date End Date Didier Romero MD [address] [place] [address] PCP - General Family Medicine 01/11/17 01/02/24 documented as of this encounter
--- OUTSIDE RECORDS SUMMARY | 2024-05-30 11:02 | XMS_ITS | Encounter Summary ---
[place] [address] Care Team Providers Care Chaplaincy Name Role Phone Didier Romero MD Primary Care Provider + Encounter Details Date Type Department Care Team (Late st Contact Info) Description 06/14/2020 Telephone [facility] [place] [phone] Jerson Harris, RN Social History Tobacco Use [...] on 06/15/2020 (date of procedure) with their commercial front load driver. 2. Following instructions left in the [...] 8:45 AM EST Office Visit Dermatology at [place] [address] [facility] [place] [address] Jake Galvez MD [address], [place] [address] documented as of this encounter Visit Diagnoses Not on filedocumented in this encounter Care Teams Chaplaincy Relationship Specialty Start Date End Date Didier Romero MD [facility] [place] [address] PCP - General Family Medicine 01/11/17 01/02/24 documented as of this encounter
--- OUTSIDE RECORDS SUMMARY | 2024-05-30 11:02 | XMS_ITS | Encounter Summary ---
Author Organization [facility] [place] [address] Care Team Providers Care Stoker Erector And Servicer Name Role Phone Jose Calvo MD Primary Care Provider [phone] Reason for Visit * Reason Onset Date Comments Labs Only 01/13/2011 Encounter Details Date Type Department Care Team (Late st Contact Info) Description 01/13/2011 Tele[place] [address] Humaira Pablo MD [facility] [place] [address] Labs Only Social History Tobacco Use Types [...] 8:45 AM EST Office Visit Dermatology at [address] [place] [address] Jake Galvez MD [address] [facility], [place] [address] documented as of this encounter Visit Diagnoses Diagnosis 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
--- OUTSIDE RECORDS SUMMARY | 2024-05-30 11:02 | XMS_ITS | Encounter Summary ---
[place] [address] Care Team Providers Care Sap Bw Bi Developer Name Role Phone Didier Romero MD Primary Care Provider + Reason for Visit * Reason Comments Skin Check Encounter Details Date Type Department Care Team (Late st Contact Info) Description 01/11/2017 2:15 PM EDT Office Visit Dermatology at [address] [address] Jake Galvez MD [address] [place] [address], [facility] A DERMATOLOGY [place], [place] [phone] History of SCC (squamous cell carcinoma) of [...] 1 mm Breslow depth, 07/2011, diagnosed in [place], right inferior axillary vault area with a [...] 8:45 AM EST Office Visit Dermatology at [address] [address] Jake Galvez MD [address] [facility], [facility] [place] [address] documented as of this encounter Visit Diagnoses Diagnosis History of SCC (squamous cell carcinoma) of skin Personal history of other malignant neoplasm of skin History of malignant melanoma Personal history of malignant melanoma of skin documented in this encounter Care Teams Sap Bw Bi Developer Relationship Specialty Start Date End Date Didier Romero MD [address] [place] [address] PCP - General Family Medicine 01/11/17 01/02/24 documented as of this encounter
--- OUTSIDE RECORDS SUMMARY | 2024-05-30 11:02 | XMS_ITS | Encounter Summary ---
[place] [address] Care Team Providers Care Top Stitcher Name Role Phone Didier Romero MD Primary Care Provider + Reason for Visit * Reason Comments Skin Check Encounter Details Date Type Department Care Team (Late st Contact Info) Description 04/23/2020 2:45 PM EST Office Visit Dermatology at [address] [address] Jake Galvez MD [address] [place] [address], [facility] DERMATOLOGY [place], [place] [id number] [place] (actinic keratosis); History of SCC (squamous [...] is now 60. We last had a telehealth visit in September. He has concerns about [...] biopsy results in 1 week. CC: Didier Rmoero MD documented in this encounter Plan of Treatment Upcoming Encounters Date Type Department Care Team (Late st Contact Info) Description 07/08/2024 8:45 AM EST Office Visit Dermatology at [address] [address] Jake Galvez MD [address] [facility] [place] [address] documented as of this encounter Visit Diagnoses Diagnosis AK (actinic keratosis) Actinic keratosis History of SCC (squamous cell carcinoma) of skin Personal history of other malignant neoplasm of skin History of malignant melanoma Personal history of malignant melanoma of skin documented in this encounter Care Teams Top Stitcher Relationship Specialty Start Date End Date Didier Romero MD [facility] [place] [address] PCP - General Family Medicine 01/11/17 01/02/24 documented as of this encounter
--- OUTSIDE RECORDS SUMMARY | 2024-05-30 11:02 | XMS_ITS | Encounter Summary ---
[place] [address] Care Team Providers Care Cooper Helper Name Role Phone Didier Romero MD Primary Care Provider + Encounter Details Date Type Department Care Team (Late Contact Info) Description 01/11/2017 Refill Dermatology at [address] [address] Jeana Valentin LPN Social History [...] AM EST Office Visit Dermatology at [address] [address] Jake Galvez MD [address] [place] [address], [facility] DERMATOLOGY [place], [place] [id number] documented as of this encounter Visit Diagnoses Not on filedocumented in this encounter Care Teams Cooper Helper Relationship Specialty Start Date End Date Didier Romero MD [address] [place], [place] [address] PCP - General Family Medicine 01/11/17 01/02/24 documented as of this encounter
--- OUTSIDE RECORDS SUMMARY | 2024-05-30 11:02 | XMS_ITS | Encounter Summary ---
[place] [address] Care Team Providers Care Military Pay Technician Name Role Phone Jose Calvo MD Primary Care Provider Encounter Details Date Type Department Care Team (Late st Contact Info) Description 06/13/2010 1:15 PM EST Office Visit Dermatology [address] [place] [address] [address] [place] [address] Jake Galvez MD [address] [facility] [place] [address] Social History Tobacco Use Types Packs/Day Years [...] 8:45 AM EST Office Visit Dermatology at [address] [phone] Jake Galvez MD [address] [facility] [place] [address] documented as of this encounter Visit Diagnoses Not on filedocumented in this encounter Care Teams Military Pay Technician Relationship Specialty Start Date End Date Jose Calvo MD PCP - General 06/13/10 09/13/15 documented as of this encounter
--- OUTSIDE RECORDS SUMMARY | 2024-05-30 11:02 | XMS_ITS | Encounter Summary ---
Author Organization [facility] Address [address] [place] [address] Care Team Providers Care Care Consultant Name Role Phone Unknown, Provider Primary Care Provider Shania ilcheikh Encounter Details Date Type Department Care Team (Late st Contact Info) Description 2021 Lab Requisition [facility] Pathology & Laboratory Medicine - [facility] [address] [place] [address] Outr Resulting Lab, Provider Social History Tobacco [...] 447 229 - 902 ng/dL 01/03/2021 9:02 [facility] Comment:The results of this assay can be falsley elevated due to the consumption of Biotin. Sex Hormone Bnd Glob 25.5 21.6 - 113.1 nmol/L 01/03/2021 9:02 [facility] Comment:The results of this assay can be falsely lowered due to the consumption of Biotin. Free Testosterone 10.6 6.1 - 12.4 ng/dL 01/03/2021 9:02 [facility] Blood VENOUS BLOOD / Unknown 2021 10:22 EDT 2021 15:55 EDT Narrative [facility] - 01/03/2021 9:02 EDT This test is not recommended in patients with plasma protein abnormalities. us Provider Outr Resulting Lab CHEMISTRY & BLOOD GA S ORDERABLES Final Result Performing Organization Address City/State/[facility] Co de Phone Number [facility] [address] [place] [address] documented in this encounter Visit Diagnoses Not on filedocumented in this encounter Care Teams Care Consultant Relationship Specialty Start Date End Date Unknown, Provider, PCP - General 03/13/13 documented as of this encounter
--- OUTSIDE RECORDS SUMMARY | 2024-05-30 11:02 | XMS_ITS | Encounter Summary ---
Author Organization [facility] Address [address] [place] [address] Care Team Providers Care Option Trader Name Role Phone Unknown, Provider Primary Care Provider Unafiliberto ilable Encounter Details Date Type Department Care Team (Late st Contact Info) Description 08/14/2023 Lab Requisition [facility] Pathology & Laboratory Medicine - [facility] [address] [place] [address] Outr Resulting Lab, Provider Social History Tobacco [...] 4th Generation Negative Negative 08/14/2023 19:46 EDT [facility] Comment:If acute HIV-1 infec tion is suspected in a high risk patient, submit plasma specimen for HIV-1 RNA quantitation test. Blood VENOUS BLOOD / Unknown 08/13/2023 12:00 EDT 08/14/2023 18:03 EDT Narrative [facility] - 08/14/2023 19:46 EDT Fourth Generation assay performed on the Siemens Vendlyaur XPT. us Provider Outr Resulting Lab IMMUNOLOGY AND SEROL OGY ORDERABLES Final Result [facility] [address] [place] [address] documented in this encounter Visit Diagnoses Not on filedocumented in this encounter Care Teams Option Trader Relationship Specialty Start Date End Date Unknown, Provider, PCP - General 03/13/13 documented as of this encounter
--- OUTSIDE RECORDS SUMMARY | 2024-05-30 11:02 | XMS_ITS | Encounter Summary ---
[place] [address] Care Team Providers Care Proofer Black And White Name Role Phone Didier Romero MD Primary Care Provider + Encounter Details Date Type Department Care Team (Late st Contact Info) Description 08/18/2019 Refill Dermatology at [address] [address] Jeana Valentin LPN Social History [...] 8:45 AM EST Office Visit Dermatology at [address] [address] Jake Galvez MD [address] [place] [address], [facility] [place], [place] [id number] documented as of this encounter Visit Diagnoses Not on filedocumented in this encounter Care Teams Proofer Black And White Relationship Specialty Start Date End Date Didier Romero MD [address] [place], [place] [address] PCP - General Family Medicine 01/11/17 01/02/24 documented as of this encounter
--- OUTSIDE RECORDS SUMMARY | 2024-05-30 11:02 | XMS_ITS | Encounter Summary ---
[place] [address] Care Team Providers Care Parking Supervisor Name Role Phone Didier Romero MD Primary Care Provider + Encounter Details Date Type Department Care Team (Late st Contact Info) Description 09/08/2019 10:30 AM EDT TH Visit (TeleHealth) Dermatology at [address] [address] Jake Galvez MD 580 [facility] [place] [address] AK (actinic keratosis) Social History Tobacco Use [...] no more red than they were at [facility]. He just about out of his creams. [...] 8:45 AM EST Office Visit Dermatology at [place] [address] [place] [address] Jake Galvez MD 580 [facility] [place] [address] documented as of this encounter Visit Diagnoses Diagnosis AK (actinic keratosis) Actinic keratosis documented in this encounter Care Teams Parking Supervisor Relationship Specialty Start Date End Date Didier Romero MD [address] [place] [address] PCP - General Family Medicine 01/11/17 01/02/24 documented as of this encounter
--- OUTSIDE RECORDS SUMMARY | 2024-05-30 11:02 | XMS_ITS | Encounter Summary ---
[place] [address] Care Team Providers Care Resident Care Spec Name Role Phone Didier Romero MD Primary Care Provider + Reason for Visit * Reason Comments Annual Exam Encounter Details Date Type Department Care Team (Late st Contact Info) Description 01/23/2019 1:45 PM EDT Office Visit Dermatology at [address] [address] Jake Galvez MD [address] [place] [address], [facility] [place] [address] History of SCC (squamous cell carcinoma) of [...] Breslow depth, July 2011 diagnosed in [place], rightinferior axillary vault area, with a negative [...] 8:45 AM EST Office Visit Dermatology at [place] [address] [place] [phone] Jake Galvez MD 580 [facility] [place] [address] documented as of this encounter Visit Diagnoses Diagnosis History of SCC (squamous cell carcinoma) of skin Personal history of other malignant neoplasm of skin History of malignant melanoma Personal history of malignant melanoma of skin Eczema, unspecified type documented in this encounter Care Teams Resident Care Spec Relationship Specialty Start Date End Date Didier Romero MD [address] [place] [address] PCP - General Family Medicine 01/11/17 01/02/24 documented as of this encounter
--- OUTSIDE RECORDS SUMMARY | 2024-05-30 11:02 | XMS_ITS | Encounter Summary ---
Author Organization [facility] Katherine [facility] [place] [address] Care Team Providers Care Wait Staff Name Role Phone Jose Calvo MD Primary Care Provider [phone] Encounter Details Date Type Department Care Team (Late st Contact Info) Description 08/08/2012 Orders [place] [address] Dandy Mitchell MD [facility] [place] [address] Hand pain (Primary Dx) Social History Tobacco [...] 8:45 AM EST Office Visit Dermatology at [place] 580 [facility] [place] [address] Jake Galvez MD 580 [facility] [place] [address] documented as of this encounter Results * [...] for the basal (1st carpometacarpal) and triscaphe (vzkqtlsgw-zcpsbjzoi-arjhixby) joints. ??Here there is significant joint space [...] for the basal (1st carpometacarpal) and triscaphe (kbaopkssw-xlpzperlq-pufibvks) joints. Here there issignificant joint space narrowing, [...] limb documented in this encounter Care Teams Wait Staff Relationship Specialty Start Date End Date Jose Calvo MD PCP - General 06/13/10 09/13/15 documented as of this encounter
--- OUTSIDE RECORDS SUMMARY | 2024-05-30 11:02 | XMS_ITS | Encounter Summary ---
Author Organization [facility] [place] [address] Care Team Providers Care Chamber Walker Name Role Phone Didier Romero MD Primary Care Provider + Encounter Details Date Type Department Care Team (Late st Contact Info) Description 03/01/2020 Ancillary Procedure Radiology Library at [facility] [place] [place] [address] Geoff Lanier MD [facility] PHYSICAL [place] [address] Social History Tobacco Use Types Packs/Day Years [...] AM EST Office Visit Dermatology at [place] [address] [facility] [place] [address] Jake Galvez MD [address] [facility], [place] [address] documented as of this encounter Procedures Procedure [...] FILM LIBRARY ORD ERABLES Performing Organization Address City/State/[facility] Co de Phone Number [place], [place] documented in this encounter Visit Diagnoses Not on filedocumented in this encounter Care Teams Chamber Walker Relationship Specialty Start Date End Date Didier Romero MD [address] [place] [address] PCP - General Family Medicine 01/11/17 01/02/24 documented as of this encounter
--- OUTSIDE RECORDS SUMMARY | 2024-05-30 11:02 | XMS_ITS | Encounter Summary ---
Author Organization [facility] Address [address] [place] [address] Care Team Providers Care Intranet Support Name Role Phone Unknown, Provider Primary Care Provider Unava ilable Encounter Details Date Type Department Care Team (Late st Contact Info) Description 12/13/2019 Lab Requisition [facility] Pathology & Laboratory Medicine - [address] [address] Outr Resulting Lab, Provider Social History Tobacco [...] 229 - 902 ng/dL 12/15/2019 11:20 EDT [facility] Blood VENOUS BLOOD / Unknown 12/13/2019 8:04 EDT 12/14/2019 18:19 EDT Narrative [facility] - 12/15/2019 11:20 EDT The results of this assay can be falsley elevated due to the consumption of Biotin. us Provider Outr Resulting Lab CHEMISTRY & BLOOD GA S ORDERABLES Final Result [facility] [address] [place] [address] documented in this encounter Visit Diagnoses Not on filedocumented in this encounter Care Teams Intranet Support Relationship Specialty Start Date End Date Unknown, Provider, PCP - General 03/13/13 documented as of this encounter
--- OUTSIDE RECORDS SUMMARY | 2024-05-30 11:02 | XMS_ITS | Encounter Summary ---
Author Organization [facility] [place] [address] Care Team Providers Care Dust Puller Name Role Phone Didier Romero MD Primary Care Provider + Encounter Details Date Type Department Care Team (Latest Contact Info) Description 04/23/2020 9:36 PM EST - 04/23/2020 11:59 PM [facility] Hospital [place] [address] Discharge Disposition: Home Social History Tobacco Use [...] AM EST Office Visit Dermatology at [address] [place] [phone] Jake Galvez MD [address] [facility] [address], [place] [address] documented as of this encounter Procedures Procedure Name Priority Date/Time Associated Diagnosis Comments SURGICAL PATHOLOGY REPORT Routine 04/23/2020 12:00 PM EST documented in this encounter Results * Surgical Pathology Report (04/23/2020 12:00 PM EST) Final Diagnosis [id number] ? Location: OPW The signing pathologist has (i) examined the relevant preparation(s) for the specimen(s) and (ii) rendered or confirmed the diagnosis(es). . 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 of Pathology, [place], [place] DISCUSSION Atypical melanocytic proliferation is not [...] ?A2: ??Body ??shb 04/30/2020 1:34 PM EST [facility] SPECIMEN FROM SKIN / Unknown 04/23/2020 12:00 PM EST 04/23/2020 12:00 PM EST Jake Galvez MD PATHOLOGY/CYTOLOGY O KARISSA Performing Organization Address City/State/[facility] Co de Phone Number [facility] [place] [address] documented in this encounter Visit Diagnoses Not on filedocumented in this encounter Care Teams Dust Puller Relationship Specialty Start Date End Date Didier Romero MD [address] [place] [address] PCP - General Family Medicine 01/11/17 01/02/24 documented as of this encounter
--- OUTSIDE RECORDS SUMMARY | 2024-05-30 11:02 | XMS_ITS | Encounter Summary ---
[place] [address] Care Team Providers Care Gi Physician Name Role Phone Lisa Jackson MD Primary Care Provider [phone] Encounter Details Date Type Department Care Team (Late st Contact Info) Description 11/09/2015 8:00 AM EDT Office Visit Dermatology at [address] [address] Jake Galvez MD 580 [facility] [place] [address] Visit for suture removal Social History Tobacco [...] AM EST Office Visit Dermatology at [place] [address] [place] [address] Jake Galvez MD [address] [facility] [place] [address] documented as of this encounter Visit Diagnoses Diagnosis Visit for suture removal Encounter for removal of sutures documented in this encounter Care Teams Gi Physician Relationship Specialty Start Date End Date Lisa Jackson MD [address] [place] [address] PCP - General Oncology 09/14/15 01/10/17 documented as of this encounter
--- OUTSIDE RECORDS SUMMARY | 2024-05-30 11:02 | XMS_ITS | Encounter Summary ---
[place] [address] Care Team Providers Care Salon Receptionist Name Role Phone Lisa Jackson MD Primary Care Provider [phone] Encounter Details Date Type Department Care Team (Late st Contact Info) Description 11/02/2015 2:15 PM EDT Procedure visit Dermatology at [address] [phone] Jake Galvez MD 580 [facility], [facility] [place] [address] History of SCC (squamous cell carcinoma) of [...] 8:45 AM EST Office Visit Dermatology at [address] [address] Jake Galvez MD 580 [facility], [facility] [place] [address] documented as of this encounter Visit Diagnoses Diagnosis History of SCC (squamous cell carcinoma) of skin Personal history of other malignant neoplasm of skin Viral warts, unspecified type documented in this encounter Care Teams Salon Receptionist Relationship Specialty Start Date End Date Lisa Jackson MD [address] [place] [address] PCP - General Oncology 09/14/15 01/10/17 documented as of this encounter
--- OUTSIDE RECORDS SUMMARY | 2024-05-30 11:02 | XMS_ITS | Encounter Summary ---
Author Organization [facility] [place] [address] Care Team Providers Care Mine Equipment Design Engineer Name Role Phone Didier Romero MD Primary Care Provider + Encounter Details Date Type Department Care Team (Late st Contact Info) Description 05/24/2020 Telephone [facility] at [facility] [place] [phone] Sara Gusman MSW [facility] [place] [address] Social History Tobacco Use Types Packs/Day Years [...] EST Return msg left for LESTER NURSE JUMPBASTING COLLAR BASTER FROM [employer] [phone] to facilitate peer to peer in consideration of injection documented in this encounter Plan of Treatment Upcoming Encounters Date Type Department Care Team (Late st Contact Info) Description 07/08/2024 8:45 AM EST Office Visit Dermatology at [place] [address] [facility] [place] [address] Jake Galvez MD [address] [facility] [facility] [address], [place] [address] documented as of this encounter Visit Diagnoses Not on filedocumented in this encounter Care Teams Mine Equipment Design Engineer Relationship Specialty Start Date End Date Didier Romero MD [address] [place] [address] PCP - General Family Medicine 01/11/17 01/02/24 documented as of this encounter
--- OUTSIDE RECORDS SUMMARY | 2024-05-30 11:02 | XMS_ITS | Encounter Summary ---
[place] [address] Care Team Providers Care Birthing Nurse Name Role Phone Didier Romero MD Primary Care Provider + Reason for Referral * Consultation (Routine) - Closed Specialty Diagnoses / Procedures Referred By Contac t Referred To Contact [facility] Diagnoses Cervicalgia Cervical spondylosis Geoff Lanier MD [facility] PHYSICAL MEDICINE [place] [address] [facility] [place] [address] Referral ID Status Reason Start Date Expiration Date Visits Requested Visits Authorized [id number] Closed Pain Interventional Procedure 0 05/18/2021 3 3 Reason for Visit * Reason Comments Neck Pain headaches/ numbness and tingling * Consultation (Routine) - Closed Specialty Diagnoses / Procedures Referred By Contac t Referred To Contact [facility] Diagnoses Neck pain Spine - Neck pain/ MRI(c) 03/01/20 @ [facility] Anisha Xie APRN [address] [place] [address] Geoff Lanier MD [facility] [place] [address] Referral ID Status Reason Start Date Expiration Date Visits Re quested Visits Authorized [id number] Closed 04/08/2020 04/08/2021 1 1 Encounter Details Date Type Department Care Team (Late st Contact Info) Description 05/18/2020 9:00 AM EST Office Visit [place] [address] Geoff Lanier MD [facility] [address] PH[place]ICAL [place] [address] Cervicalgia; Cervical spondylosis; Myofascial pain; Neuritis of [...] Rehabilitation consultation, at the request of Anisha Xie APRN. Ms. Xie has served as the patient's primary treating provider following a work injury on 01/07/2020 that is described below. 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 Geoff Lanier MD, MS 05/18/2020 * Eleni Hernández LNA - 05/18/2020 [...] 8:45 AM EST Office Visit Dermatology at [place] [address] [facility] [place] [address] Jake Galvez MD [address] [facility], [place] [address] Scheduled Referrals Name Type Priority Associated Diagnoses Orde r Schedule Referral to Pain and Spine Center (Internal only) Outpatient Referral Routine Cervicalgia Cervical spondylosis Ordered: 05/18/2020 documented as of this encounter Visit Diagnoses Diagnosis Cervicalgia Cervical spondylosis Cervical spondylosis without myelopathy Myofascial pain Mylagia and myositis, unspecified Neuritis of left ulnar nerve documented in this encounter Care Teams Birthing Nurse Relationship Specialty Start Date End Date Didier Romero MD [address] [place] [address] PCP - General Family Medicine 01/11/17 01/02/24 documented as of this encounter
--- OUTSIDE RECORDS SUMMARY | 2024-05-30 11:02 | XMS_ITS | Encounter Summary ---
[place] [address] Care Team Providers Care Gas Desulfurizer Name Role Phone Didier Romero MD Primary Care Provider + Encounter Details Date Type Department Care Team (Late st Contact Info) Description 09/02/2019 1:45 PM EDT TH Visit (TeleHealth) Dermatology at [address] [address] Jake Galvez MD 580 [facility], [facility] [place] [address] History of SCC (squamous cell carcinoma) of [...] 8:45 AM EST Office Visit Dermatology at [place] 580 [facility] [place] [address] Jake Galvez MD 580 [facility], [place] [address] documented as of this encounter Visit Diagnoses Diagnosis History of SCC (squamous cell carcinoma) of skin Personal history of other malignant neoplasm of skin History of malignant melanoma Personal history of malignant melanoma of skin [place] (actinic keratosis) Actinic keratosis documented in this encounter Care Teams Gas Desulfurizer Relationship Specialty Start Date End Date Didier Romero MD [address] [place] [address] PCP - General Family Medicine 01/11/17 01/02/24 documented as of this encounter
--- OUTSIDE RECORDS SUMMARY | 2024-05-30 11:02 | XMS_ITS | Encounter Summary ---
Author Organization [facility] Address [address] [place] [address] Care Team Providers Care Welt Drawer Name Role Phone Unknown, Provider Primary Care Provider Unava ilable Encounter Details Date Type Department Care Team (Late st Contact Info) Description 03/21/2024 Lab Requisition [facility] Pathology & Laboratory Medicine - [facility] [address] [place] [address] Richard Hidalgo MD [address] [place] [address], [address] [place], [place] [id number] Encounter for screening for malignant neoplasm of colon Social History Tobacco Use Types Packs/Day Years [...] for screening for malignant neoplasm of colon documented in this encounter Results * SURGICAL PATHOLOGY (03/21/2024 11:55 EDT) Note to Patient The following pathology results have been interpreted by your pathologist and may be available to you before your health provider has had the opportunity to review them. Please allow time for your provider to receive these results and explore management options, if applicable. 03/25/2024 11:52 EDT [facility] Final Diagnosis A. COLON, 65 CM, POLYP, BIOPSY: - Tubular adenoma. - Deeper sections x3 examined. 03/25/2024 11:52 EDT [facility] Attestation There was significant resident/fellow involvement in the diagnostic evaluation of this case. By the signature below, the attending physician certifies that they have personally conducted a gross and/or microscopic examination of the described specimens and rendered or confirmed the above diagnosis. 03/25/2024 11:52 EDT [facility] at 1152 Clinical History Screening for colon cancer 03/25/2024 11:52 EDT [facility] Gross Description A. Received in formalin labelled with proper patient identification (initials L, T) and polyp at 65 cm is a single valdivia-yellow focally valdivia-brown tissue (0.5 x 0.3 x 0.3 cm). The specimen is submitted intact in A1. Pb Sommer 03/22/2024 13:44 03/25/2024 11:52 EDT [facility] Resident/Richard w: Sherry Stallworth MB [facility] 03/25/2024 11:52 EDT [facility] Performing Lab [facility] 03/25/2024 11:52 EDT [facility] Scanned Images 03/25/2024 11:52 EDT [facility] Tissue COLON STRUCTURE / Unknown 03/21/2024 11:55 EDT 03/21/2024 17:58 EDT us Richard Hidalgo MD PATHOLOGY ORDERABLES Final Resu lt [facility] [address] [place] [address] documented in this encounter Visit Diagnoses Diagnosis Encounter for screening for malignant neoplasm of colon Special screening for malignant neoplasms, colon documented in this encounter Care Teams Welt Drawer Relationship Specialty Start Date End Date Unknown, Provider, PCP - General 03/13/13 documented as of this encounter
--- OUTSIDE RECORDS SUMMARY | 2024-05-30 11:02 | XMS_ITS | Encounter Summary ---
Author Organization [facility] [place] [place] [address] Care Team Providers Care Sample Maker Original Name Role Phone Jose Calvo MD Primary Care Provider Encounter Details Date Type Department Care Team (Late st Contact Info) Description 01/13/2011 Tele[place] [phone] Humaira aPblo MD [facility] [place] [address] Social History Tobacco Use Types Packs/Day Years [...] 8:45 AM EST Office Visit Dermatology at [address] [place] [address] Jake Galvez MD 580 [facility], [facility] A DERMATOLOGY [place], [place] [address] documented as of this encounter Visit Diagnoses Not on filedocumented in this encounter Care Teams Sample Maker Original Relationship Specialty Start Date End Date Jose Calvo MD PCP - General 06/13/10 09/13/15 documented as of this encounter
--- OUTSIDE RECORDS SUMMARY | 2024-05-30 11:02 | XMS_ITS | Encounter Summary ---
[place] [address] Care Team Providers Care State Federal Relations Deputy Director Name Role Phone Didier Romero MD [...] Expiration Date Visits Re quested Visits Authorized [id number] 1 1 Encounter Details Date Type Department Care Team (Latest Contact Info) Description 06/15/2020 7:15 AM EST - 06/15/2020 9:13 AM [facility] Hospital [place] [address] Emerson Chand MD [facility] [place] [address] Discharge Disposition: Home Social History Tobacco Use [...] Post -Procedure Pain Log Patient: Grayson Dodd [facility] [id number] It is important for you to keep [...] file Gets together: Not on file Attends temple service: Not on file Active member of [...] future. John Honeycutt MD Pain Management Fellow [address] [address] / [facility] documented in this encounter Miscellaneous Notes * Op Note - John Honeycutt MD - 06/15/2020 9:07 AM EST Pain Management Operative Note Patient Name: Grayson Dodd III : [id number] MR#: [id number] Case Date: 06/15/2020 Surgeon: Surgeon(s) and Role: [...] scores. John Honeycutt MD Pain Management Fellow [address] [address] / [facility] CC: Didier Romero MD [address] [place] [address], [place] [address] Associated attestation - Emerson Chand MD - [...] AM EST Office Visit Dermatology at [place] [address] [place] [phone] Jake Galvez MD [address] [facility], [place] [address] documented as of this encounter Visit Diagnoses Diagnosis Cervical spondylosis Cervical spondylosis without myelopathy documented in this encounter Active and Recently Administered Medications Times are shown in EST. PRN Medication Order 06/13/2020 06/14/2020 06/15/2020 dexamethasone (PF) (Decadron) (10 mg/mL) injection (CANCELED) ONCE PRN, Starting on Sun06/15/20 at 0902, Until Sun06/15/20 at 1118, Intra-Operative (Intra-Procedure), Routine 0902 (Given - Provid er: John Honeycutt MD) iohexoL (Omnipaque) (240 mg/mL) injection solution (CANCELED) ONCE PRN, Starting on Sun06/15/20 at 0857, Until Sun06/15/20 at 1118, Intra-Operative (Intra-Procedure), Routine 0857 (Given - Provid er: John Honeycutt MD) lidocaine (Xylocaine) (20 mg/mL) 2% injection (CANCELED) ONCE PRN, Starting on Sun06/15/20 at 0901, Until Sun06/15/20 at 1118, Intra-Operative (Intra-Procedure), Routine 0901 (Given - Provid er: John Honeycutt MD) documented in this encounter Care Teams State Federal Relations Deputy Director Relationship Specialty Start Date End Date Didier Romero MD [address] [place] [address] PCP - General Family Medicine 01/11/17 01/02/24 documented as of this encounter
--- OUTSIDE RECORDS SUMMARY | 2024-05-30 11:02 | XMS_ITS | Encounter Summary ---
Author Organization [facility] [place] [address] Care Team Providers Care Director Statistical Programming Name Role Phone Didier Romero MD Primary Care Provider + Encounter Details Date Type Department Care Team (Late st Contact Info) Description 01/08/2020 Ancillary Procedure Radiology Library at [facility] [place] [address] Geoff Lanier MD [facility] [place]ICAL [place] [address] Social History Tobacco Use Types Packs/Day Years [...] 8:45 AM EST Office Visit Dermatology at [place] [address] [place] [phone] Jake Galvez MD [address], [place] [address] documented as of this encounter Procedures Procedure [...] FILM LIBRARY ORD ERABLES Performing Organization Address City/State/[facility] Co de Phone Number [place], [place] documented in this encounter Visit Diagnoses Not on filedocumented in this encounter Care Teams Director Statistical Programming Relationship Specialty Start Date End Date Didier Romero MD [address] [place] [address] PCP - General Family Medicine 01/11/17 01/02/24 documented as of this encounter
--- OUTSIDE RECORDS SUMMARY | 2024-05-30 11:02 | XMS_ITS | Encounter Summary ---
[place] [address] Care Team Providers Care Gasoline Pump Installer Name Role Phone Didier Romero MD Primary Care Provider + Encounter Details Date Type Department Care Team (Late st Contact Info) Description 06/01/2020 Telephone [place] [phone] Jerson Harris, RN Social History Tobacco Use [...] RN - 06/01/2020 8:06 AM EST Grayson Dueñas Yousif III :1960 Contact made with patient: [...] postponed. Prior to checking in at 3D Alarm Adjuster, please be sure to empty your bladder. Patient confirmed understanding that if they do not follow the above instructions, their procedure is likely to be cancelled. [facility] documented in this encounter Plan of Treatment Upcoming Encounters Date Type Department Care Team (Late st Contact Info) Description 07/08/2024 8:45 AM EST Office Visit Dermatology at [place] [address] [place] [address] Jake Galvez MD [address], [place] [address] documented as of this encounter Visit Diagnoses Not on filedocumented in this encounter Care Teams Gasoline Pump Installer Relationship Specialty Start Date End Date iDdier Romero MD [facility] [place] [place] [address] PCP - General Family Medicine 01/11/17 01/02/24 documented as of this encounter
--- OUTSIDE RECORDS SUMMARY | 2024-05-30 11:02 | XMS_ITS | Encounter Summary ---
Author Organization [facility] Address [address] [place] [address] Care Team Providers Care Editorial Specialist Name Role Phone Unavailable Primary Care Provider Unavailabl e Encounter Details Date Type Department Care Team (Latest Contact Info) Description 03/03/2013 13:04 EDT - 03/03/2013 23:59 EDT Hospital Encounter [address] [address] Unknown, Provider, MD Discharge Disposition: Home or Self Care Social History Tobacco Use Types Packs/Day Years Used Date Smoking Tobacco: Never Assessed Sex and Gender Information Value Date Recorded Sex Assigned at Not on file Legal Sex Male 13:01 EDT Gender Identity Not on file Sexual Orientation Not on file documented as of this encounter Discharge Disposition Disposition Code Departure Means Destination Home or Self Correction documented in this encounter Plan of Treatment Not on file documented as of this encounter Visit Diagnoses Not on filedocumented in this encounter
--- OUTSIDE RECORDS SUMMARY | 2024-05-30 11:02 | XMS_ITS | Encounter Summary ---
Author Organization [facility] Address [address] [place] [address] Care Team Providers Care Test Grader Name Role Phone Unknown, Provider Primary Care Provider Unava ilable Encounter Details Date Type Department Care Team (Late st Contact Info) Description 08/14/2023 Lab Requisition [facility] Pathology & Laboratory Medicine - [address] [phone] Outr Resulting Lab, Provider Social History Tobacco [...] & BLOOD GA S ORDERABLES Final Result [facility] [address] [place], [place] [address] documented in this encounter Visit Diagnoses Not on filedocumented in this encounter Care Teams Test Grader Relationship Specialty Start Date End Date Unknown, Provider, PCP - General 03/13/13 documented as of this encounter
--- OUTSIDE RECORDS SUMMARY | 2024-05-30 11:02 | XMS_ITS | Encounter Summary ---
Author Organization [facility] [place] [address] Care Team Providers Care Streetcar Starter Name Role Phone Didier Romero MD Primary Care Provider + Encounter Details Date Type Department Care Team (Late st Contact Info) Description 06/01/2020 Telephone [facility] Sp[facility] at [facility] [phone] Sara Gusman SLOT FLOOR ATTENDANT [place] [address] Social History Tobacco Use Types Packs/Day Years [...] CARE MANAGEMENT CCM Follow up call to [employer] [employer] [employer] FROM [place] [phone] whose voicemail indicates she is out until 06/07/20. Though injection re scheduled spoke with colleague who is unclear what they are asking for in terms of peer to peer for this wc claim. She will request rotary adjuster Lilia O'Brienor ncm Liliana to call back and clarify and assist with the the process for requesting approval. Update to patient and healthcare team pending re-contact. documented in this encounter Plan of Treatment Upcoming Encounters Date Type Department Care Team (Late st Contact Info) Description 07/08/2024 8:45 AM EST Office Visit Dermatology at [place] [address] [facility] [place] [address] Jake Galvez MD [address] [facility] [address], [place] [address] documented as of this encounter Visit Diagnoses Not on filedocumented in this encounter Care Teams Streetcar Starter Relationship Specialty Start Date End Date Didier Romero MD [address] [place] [address] PCP - General Family Medicine 01/11/17 01/02/24 documented as of this encounter
--- OUTSIDE RECORDS SUMMARY | 2024-05-30 11:02 | XMS_ITS | Referral Summary ---
Author Organization [facility] Address [address] [place] [address] Care Team Providers Care Ore Miner Blasting Name Role Phone Unknown, Provider MD Primary Care Provider Unava ilable Encounters Date Type Department Care Team Description 03/21/2024 Lab Requisition [facility] Pathology & Laboratory Medicine - [facility] [address] [place] [address] Richard Hidalgo MD Encounter for screening for [...] management options, if applicable. 03/25/2024 11:52 EDT [facility] Final Diagnosis A. COLON, 65 CM, POLYP, BIOPSY: - Tubular adenoma. - Deeper sections x3 examined. 03/25/2024 11:52 EDT [facility] Attestation There was significant resident/fellow involvement in the diagnostic evaluation of this case. By the signature below, the attending physician certifies that they have personally conducted a gross and/or microscopic examination of the described specimens and rendered or confirmed the above diagnosis. 03/25/2024 11:52 T [facility] at 1152 Clinical History Screening for colon cancer 03/25/2024 11:52 EDT [facility] Gross Description A. Received in formalin labelled with proper patient identification (initials L, T) and polyp at 65 cm is a single valdivia-yellow focally valdivia-brown tissue (0.5 x 0.3 x 0.3 cm). The specimen is submitted intact in A1. Pb Sommer 03/22/2024 13:44 03/25/2024 11:52 EDT [facility] Resident/Richard w: Sherry Stallworth MB [facility] 03/25/2024 11:52 T [facility] Performing Lab [facility] 03/25/2024 11:52 T [facility] Scanned Images 03/25/2024 11:52 EDT [facility] Tissue COLON STRUCTURE / Unknown 03/21/2024 11:55 EDT 03/21/2024 17:58 EDT us Richard Hidalgo MD PATHOLOGY ORDERABLES Final Resu lt [facility] [address] [place] [address] * HEPATITIS C AB W REFLEX TO HCV RNA BY PCR (08/13/2023 12:00 EDT) Hep C Antibody Negative Negative 08/14/2023 19:49 EDT [facility] Blood VENOUS BLOOD / Unknown 08/13/2023 12:00 EDT 08/14/2023 18:03 EDT us Provider Outr Resulting Lab CHEMISTRY & BLOOD GA S ORDERABLES Final Result [facility] [address] [place] [address] from Last 3 Months or Most Recently Relevant to Health Maintenance Insurance CIG [facility] Care Teams Ore Miner Blasting Relationship Specialty Start Date End Date Unknown, Provider, PCP - General 03/13/13
--- OUTSIDE RECORDS SUMMARY | 2024-05-30 11:02 | XMS_ITS | Encounter Summary ---
Author Organization [facility] [place] [address] Care Team Providers Care Extrusion Die Coordinator Name Role Phone Didier Romero MD Primary Care Provider + Encounter Details Date Type Department Care Team (Late st Contact Info) Description 04/26/2020 External [place] [phone] Provider, Scanning Social History Tobacco Use Types [...] 8:45 AM EST Office Visit Dermatology at [place] [address] [place] [phone] Jake Galvez MD [address], [place] [address] documented as of this encounter Procedures Procedure Name Priority Date/Time Associated Diagnosis Comments SURGICAL PATHOLOGY SCAN Routine 04/26/2020 documented in this encounter Results * Scan Doc: Surgical Pathology (04/26/2020) Historical Provider MD KABA MGR SCAN EX T ORDR/RSLT documented in this encounter Visit Diagnoses Not on filedocumented in this encounter Care Teams Extrusion Die Coordinator Relationship Specialty Start Date End Date Didier Romero MD [address] [place] [address] PCP - General Family Medicine 01/11/17 01/02/24 documented as of this encounter
--- OUTSIDE RECORDS SUMMARY | 2024-05-30 11:02 | XMS_ITS | Encounter Summary ---
Author Organization [facility] [place] [address] Care Team Providers Care Soaker Meat Name Role Phone Jose Calvo MD Primary Care Provider Encounter Details Date Type Department Care Team (Late st Contact Info) Description 07/11/2010 1:30 PM EST Office [place] [address] Humaira Pablo MD [facility] [place] [address] Discharge Disposition: Home Social History Tobacco Use [...] AM EST Office Visit Dermatology at [address] [phone] Jake Galvez MD [address] [facility], [facility] [place] [address] documented as of this encounter Visit Diagnoses Not on filedocumented in this encounter Care Teams Soaker Meat Relationship Specialty Start Date End Date Jose Calvo MD PCP - General 06/13/10 09/13/15 documented as of this encounter
--- OUTSIDE RECORDS SUMMARY | 2024-05-30 11:02 | XMS_ITS | Encounter Summary ---
[place] [address] Care Team Providers Care Dancing Teacher Name Role Phone Didier Romero MD Primary Care Provider + Encounter Details Date Type Department Care Team (Late st Contact Info) Description 05/04/2020 Telephone Dermatology at [address] [address] Jeana Valentin LPN Social History [...] AM EST Office Visit Dermatology at [address] [place] [address] Jake Galvez MD [address], [place] [address] documented as of this encounter Visit Diagnoses Not on filedocumented in this encounter Care Teams Dancing Teacher Relationship Specialty Start Date End Date Didier Romero MD [address] [place] [address] PCP - General Family Medicine 01/11/17 01/02/24 documented as of this encounter
--- OUTSIDE RECORDS SUMMARY | 2024-05-30 11:02 | XMS_ITS | Encounter Summary ---
[place] [address] Care Team Providers Care Deburrer Strip Name Role Phone Lisa Jackson MD Primary Care Provider + [phone] Reason for Visit * Reason Comments Skin Check Encounter Details Date Type Department Care Team (Late st Contact Info) Description 09/14/2015 2:00 PM EDT Office Visit Dermatology at [address] [address] Jake Galvez MD [address] [place] [address], [facility] DERMATOLOGY [place], [place] [phone] History of malignant melanoma Social History Tobacco [...] mm Breslow depth, July 2011, diagnosed in [place], right inferior axillary vault area with negative sentinel lymph node biopsy. Bruno follows accompanied by his , Arlen. I have not seen him since June 2010, but he was recently seen by Dr. Jackson, who refers him back to see me. He reminds me he has had a fair amount of sun over the years. 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 Physical examination reveals [...] 8:45 AM EST Office Visit Dermatology at [place] [address] [facility] [place] [address] Jake Galvez MD [address] [facility], [place] [address] documented as of this encounter Visit Diagnoses Diagnosis History of malignant melanoma Personal history of malignant melanoma of skin documented in this encounter Care Teams Deburrer Strip Relationship Specialty Start Date End Date Lisa Jackson MD [address] [place] [address] PCP - General Oncology 09/14/15 01/10/17 documented as of this encounter
--- OUTSIDE RECORDS SUMMARY | 2024-05-30 11:02 | XMS_ITS | Encounter Summary ---
[place] [address] Care Team Providers Care Carpet Loom Fixer Name Role Phone Didier Romero MD Primary Care Provider + Reason for Visit * Reason Comments Follow-up Skin Check Encounter Details Date Type Department Care Team (Late st Contact Info) Description 01/22/2018 2:30 PM EDT Office Visit Dermatology at [address] [address] Jake Galvez MD [address] [place] [address], [facility] [place] [place] [address] History of SCC (squamous cell carcinoma) of [...] 3 refills will call into his right [facility] in [place]. 2. Continue to avoid fragranced products such [...] 8:45 AM EST Office Visit Dermatology at [place] [address] [facility] [place] [phone] Jake Galvez MD [address] [facility], [place] [address] documented as of this encounter Visit Diagnoses Diagnosis History of SCC (squamous cell carcinoma) of skin Personal history of other malignant neoplasm of skin History of malignant melanoma Personal history of malignant melanoma of skin Eczema, unspecified type documented in this encounter Care Teams Carpet Loom Fixer Relationship Specialty Start Date End Date Didier Romero MD [address] [place] [address] PCP - General Family Medicine 01/11/17 01/02/24 documented as of this encounter
--- OUTSIDE RECORDS SUMMARY | 2024-05-30 11:02 | XMS_ITS | Encounter Summary ---
[place] [address] Care Team Providers Care Ict Developer Name Role Phone Didier Romero MD Primary Care Provider + Encounter Details Date Type Department Care Team (Late st Contact Info) Description 09/15/2019 1:30 PM EDT TH Visit (TeleHealth) Dermatology at [address] [address] Jake Galvez MD [address] [facility], [facility] [place] [address] [place] (actinic keratosis) Social History Tobacco Use [...] mm Breslow depth, July 2011 diagnosed in [place], right inferior axillary vault area, with a negative sentinel lymph node biopsy 3. 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 ??History of lichen simplex left medial calf and right arm controled??with clobetasol cream prn Grayson follows today via the [employer] platform. He is now used the [...] 8:45 AM EST Office Visit Dermatology at [place] [address] [place] [address] Jake Galvez MD [address] [facility], [facility] [place] [address] documented as of this encounter Visit Diagnoses Diagnosis AK (actinic keratosis) Actinic keratosis documented in this encounter Care Teams Ict Developer Relationship Specialty Start Date End Date Didier Romero MD [address] [place] [address] PCP - General Family Medicine 01/11/17 01/02/24 documented as of this encounter
--- OUTSIDE RECORDS SUMMARY | 2024-05-30 11:02 | XMS_ITS | Encounter Summary ---
[place] [address] Care Team Providers Care Support Services Coordinator Name Role Phone Didier Romero MD Primary Care Provider + Encounter Details Date Type Department Care Team (Late st Contact Info) Description 05/18/2020 Notes Only [facility] [place] [phone] Shelby Banegas Social History Tobacco Use Types [...] Hold Initial Request Patient: Grayson Dodd III [id number] Request for the above named patient to temporarily stop Aspirin for 6 days prior to requested cervical medial branch block and Radiofrequency Ablation injection/procedure has been faxed to: Dr. Romero's office. Fax number: [phone] Fax confirmation that request received at the above named doctor's office: 05/18/20 (date stamp on fax confirmation) 11:19am (time stamp on fax confirmation) Paper documentation in Pain Management Center Scheduling Desk. Shelby M Makenzie documented in this encounter Plan of Treatment Upcoming Encounters Date Type Department Care Team (Late st Contact Info) Description 07/08/2024 8:45 AM EST Office Visit Dermatology at [place] [address] [facility] [address] [place] [address] Jake Galvez MD [address], [place] [address] documented as of this encounter Visit Diagnoses Not on filedocumented in this encounter Care Teams Support Services Coordinator Relationship Specialty Start Date End Date Didier Romero MD [address] [place] [address] PCP - General Family Medicine 01/11/17 01/02/24 documented as of this encounter
--- OUTSIDE RECORDS SUMMARY | 2024-05-30 11:02 | XMS_ITS | Encounter Summary ---
[place] [address] Care Team Providers Care Executive Receptionist Name Role Phone Didier Romero MD Primary Care Provider + Encounter Details Date Type Department Care Team (Late st Contact Info) Description 09/15/2019 Refill Dermatology at [address] [address] Jeana Valentin LPN Social History [...] 8:45 AM EST Office Visit Dermatology at [address] [address] Jake Galvez MD [address] [place] [address], [facility] DERMATOLOGY [place], [place] [address] documented as of this encounter Visit Diagnoses Not on filedocumented in this encounter Care Teams Executive Receptionist Relationship Specialty Start Date End Date Didier Romero MD [address] [place], [place] [address] PCP - General Family Medicine 01/11/17 01/02/24 documented as of this encounter
--- OUTSIDE RECORDS SUMMARY | 2024-05-30 11:02 | XMS_ITS | Encounter Summary ---
[place] [address] Care Team Providers Care Jack Prizer Name Role Phone Didier Romero MD Primary Care Provider + Encounter Details Date Type Department Care Team (Late Contact Info) Description 01/22/2018 Refill Dermatology at [address] [address] Jeana Valentin LPN Social History [...] 8:45 AM EST Office Visit Dermatology at [address] [address] Jake Galvez MD [address] [place] [address], [facility] DERMATOLOGY [place], [place] [address] documented as of this encounter Visit Diagnoses Not on filedocumented in this encounter Care Teams Jack Prizer Relationship Specialty Start Date End Date Didier Romero MD [address] [place], [place] [address] PCP - General Family Medicine 01/11/17 01/02/24 documented as of this encounter
[2024-05-30 15:45] LABS: ALT 35 U/L (16-63); AST 36 U/L (15-37); Alkaline Phosphatase 53 U/L (46-116); Anion Gap 8.2 mmol/L (3-11); BUN 8 mg/dL (7-18); Bilirubin, Total 0.78 mg/dL (0.2-1.0); CO2 29.8 mmol/L (21.0-32.0); CREATININE 0.9 mg/dL (0.70-1.30); Calcium 8.9 mg/dL (8.5-10.1); Chloride 97 mmol/L (98-107); Estimated GFR 95.97 (mL/min/1.73m2); Glucose 98 mg/dL (74-106); Potassium 4.6 mmol/L (3.5-5.1); Sodium 135 mmol/L (136-145); Total Protein 6.8 g/dL (6.4-8.2); Uric Acid 2.7 mg/dL (3.5-7.2)
[2024-05-30 16:22] LABS: Calculated LDL 75 mg/dL (<100); Cholesterol 197 mg/dL (<200); HDL Cholesterol 114 mg/dL (40-60); Triglyceride 44 mg/dL (<150); Vitamin B12 627 pg/mL (193-986)
[2024-06-03 10:13] LABS: Testosterone, Total 853 ng/dL (240-950)
== END 2024-05-30 10:57 | disposition home or self-care (01) ==
LOC: NCHCN 10:56
PROVIDERS: PCP Family Medicine; Visit Provider Family Medicine
DX: R89.1 Abnormal level of hormones in specimens from other organs, systems and tissues (principal); E78.5 Hyperlipidemia, unspecified; I10 Essential (primary) hypertension; E53.8 Deficiency of other specified B group vitamins
CPT/HCPCS: 80053; 80061; 84403; 82607; 84550

== ENCOUNTER 2024-06-16 11:21 | Outpatient (CLI) | payer OTHER, BC, SELFPAY ==
--- NOTE | 2024-06-16 08:30 | DI.RAD_ITS ---
Exam(s) XR KNEE RT 4V AP,LAT,PAUL,PAT EXAM: XR KNEE RT 4V AP,LAT,PAUL,PAT CLINICAL HISTORY: right knee pain. TECHNIQUE: 2D digital imaging was performed. Three views. COMPARISON: None FINDINGS: BONES: No acute fracture is present. No bony destructive lesion is seen. JOINTS: Gckb-hi-[id number] narrowing of the medial femoral tibial joint space. Minimal periarticular s purring. Patellofemoral joint is suboptimally profiled. There mild spurring at the articular aspect of the patella. The knee is normally aligned. No joint effusion is seen. SOFT TISSUE: Normal. IMPRESSION: Crir-el-[id number] narrowing of the medial femoral tibial joint space. DATA REPOSITORY: RADIATION DOSE DELIVERED:
== END 2024-06-16 11:22 | disposition home or self-care (01) ==
LOC: DIORS 11:22
PROVIDERS: PCP Family Medicine; Visit Provider Physician Assistant
DX: M25.561 Pain in right knee (principal)
CPT/HCPCS: 73564

== ENCOUNTER 2024-08-19 11:47 | Day surgery (SDC) | payer OTHER, SELFPAY ==
[2024-08-19 11:54] VITALS: BP 157/99; PULSE 74; RESP 17; TEMP 36.3; O2SAT 98
[2024-08-19] MEDS: Cephalexin 500 MG CAP 1000 MG PO (12:20)
[2024-08-19] MEDS: Lidocaine 1% Multi-Dose W/EPI 1/100,000 50 ML VIAL (14:40)
[2024-08-19] MEDS: Sodium Bicarbonate 50 MEQ/50 ML VIAL (14:40)
--- NOTE | 2024-08-19 15:16 | W.PM.DSUDISC ---
Date of service: 08/19/24 Discharge Plan Disposition Patient Disposition: Home Condition: Good Discharge Details Reason For Visit: Left Dupuytren's Contracture Attending Provider: Hood Munguia Primary Care Provider: Lizett Belle Home Meds and New Rx's Prescriptions: New hydrocodone-acetaminophen 5-325 mg tablet 1 tab PO Q6H PRN (Reason: severe pain) Qty: 4 0RF Rx Instructions: Take one tablet up to every 6 hours as needed for severe postoperative pain Continued omeprazole 20 MG capsule,delayed release(DR/EC) 20 mg PO DAILY (DME) Massage Therapy Qty: 1 0RF Rx Instructions: Recommend massage therapy to bilateral hips for scar tissue manipulation and tissue plane management s/p bilateral hip replacements. irbesartan [Avapro] 300 mg tablet 150 mg PO DAILY atorvastatin 20 mg tablet 20 mg PO QHS metoprolol succinate 50 mg tablet extended release 24 hr 50 mg PO DAILY cholecalciferol (vitamin D3) 125 mcg (5,000 unit) capsule 125 mcg PO DAILY allopurinol 100 mg tablet 300 mg PO DAILY fluticasone propionate 220 mcg/actuation HFA aerosol inhaler 2 puff inhalation BID PRN Qvar RediHaler 40 mcg/actuation HFA aerosol breath activated 2 inh inhalation BID Combivent 200 PUFF aerosol 2 puff Inhalation PRN PRN aspirin 81 mg Tablet,Delayed Release (Dr/Ec) 81 mg PO DAILY folic acid 1 mg Tablet 1 mg PO DAILY cyanocobalamin (vitamin B-12) 1,000 mcg/mL Syringe 1,000 mcg .MONTHLY fluticasone propionate 220 mcg/actuation Hfa Aerosol Inhaler 0 puff INHALATION DAILY Patient Comments: duplicate medication Rx Instructions: 1-2 PUFFS ONCE DAILY testosterone cypionate 200 mg/mL oil 100 mg IM DIRECTED Rx Instructions: 1ML IM EVERY 2 WEEKS Discharge Instructions Additional Instructions: Dupuytren's Contracture Discharge Instructions Activity: You may use your fingers for light activity. You should limit any excessive motion or forceful gripping until the sutures have been removed. Dressings: You should keep the initial surgical dressing in place for at least 3 days. You may remove your dressings and get the wound wet after 3 days. You should keep the dressings and the wound clean at all times. You may keep the initial dressing in place until your follow-up but keep the wound covered with light gauze until the sutures are removed. Medications: - You should take Tylenol and Ibuprofen around the clock as prescribed or per quality improvement analyst's recommendations. - You have Hydrocodone prescribed for breakthrough pain control. Take only as needed and limit use as much as possible. This may cause constipation. Follow-up: 7-10 days for wound check and suture removal. Referrals: Hood Munguia MD [ [facility] STAFF PHYSICIAN] - Activity:: Elevate Remove Dressings/Wound Care:: 72 hours Shower/Bathe:: 72 hours Diet:: As Tolerated Discharge Orders Discharge Orders: Discharge Order (Routine); Ordered 08/19/24 Ordered By: Bonny Rangel
[2024-08-19 15:35] VITALS: BP 154/104; PULSE 69; RESP 16; TEMP 36.8; O2SAT 97
--- NOTE | 2024-08-19 17:54 | W.PM.OP ---
Operative Note Operative Note PRE-OP DIAGNOSIS: Left Dupuytren's Contracture PROCEDURE: Partial palmar fasciectomy?left hand SURGEON: Hood Munguia ANESTHESIA TYPE: Local By Surgeon Refer to Anesthesia Record ESTIMATED BLOOD LOSS: 10 PATHOLOGY: none sent TOURNIQUET TIME: 0 COMPLICATIONS: None Patient was transported to: same day Patient's condition: stable Indications: Bruno is a 64-year-old who has Dupuytren's contracture of the left hand. He also had this on the right side which was previously treated surgically. His contracture of the little finger has continued to worsen and therefore he desires to proceed with surgical treatment of the left hand. I reviewed the technical details of the surgery. I discussed the risk to include bleeding, infection, pain, stiffness, recurrence, damage to nerves and vessels. Despite these risk, he elects to proceed. Findings: There was dense fibrous contracture to the little finger involving a central cord primarily along with natatory component to the ring finger. There also were central cords to the ring finger middle finger which were released. Procedure Description: Bruno was greeted in the preoperative holding area. His identity was confirmed the correct side was identified and marked. The consent was reviewed the patient and signed. He was taken to the procedure room, kept on the stretcher, with the left hand extended onto a hand table. No tourniquet was utilized. The left hand was prepped with DuraPrep and draped in a standard fashion. A timeout was performed for safe surgery. The proposed surgical site, obliquely overlying the A1 margarito region of the little finger and then extending across the distal?transverse palmar crease, was marked on the skin. This area was then anesthetized with 1% lidocaine with epinephrine, buffered with sodium bicarbonate. Once the area had fully become anesthetized the surgery commenced. The previously marked incision was incised sharply with a knife through the skin down towards subcutaneous tissue. A tenotomy scissors was utilized to free the deep tissues to identify the cords. Starting with the little finger there is a dense band of the central cord which was resected. This had significant depth to it. Once it was released there also were some accessory bands coming from this region which were released as well. A portion of this was removed. There is a dense fibrous nodule as well which was resected from the overlying skin. Natatory cord between the little finger and ring finger was also identified and this was also released. The incision was carried over radially. The central cord of the ring finger and middle finger were then transected. At this point we had excellent range of motion of all the digits. Secondary look was then taken through the fingers and showed no signs of residual cord material restricting finger motion. The wounds were then thoroughly irrigated. The wound was closed with 4-0 nylon. These were dressed with Xeroform, 4 x 4. An AlumaFoam splint was placed in the little finger to keep it in extension. This was secured with a conform dressing. At the end the case all counts were correct. Bruno was taken back to the day surgery area in stable condition, tolerating the procedure well. Date of Procedure: 08/19/24
== END 2024-08-19 15:53 | disposition home or self-care (01) ==
PROVIDERS: PCP Family Medicine; Visit Provider Student in an Organized Health Care Education/Training Program
PROC: (CPT 26045; principal; 2024-08-19 16:15)
DX: M72.0 Palmar fascial fibromatosis [Dupuytren] (principal)
CPT/HCPCS: 26123; 26125; J2004